=== PATIENT | female | born 1960 | race Caucasian/White ===

== ENCOUNTER → 2018-05-02 13:00 | Outpatient (CLI) | payer OTHER, SELFPAY | PROVIDERS: Family Provider Family Medicine; PCP Family Medicine | DX: Z23 Encounter for immunization (principal) | CPT/HCPCS: 90471; 90686 ==

== ENCOUNTER → 2018-09-18 09:46 | Outpatient (CLI) | payer OTHER, SELFPAY ==
[2018-09-18 10:25] LABS: Influenza A and B by PCR Rapid Negative (Negative)
== END ==
PROVIDERS: Family Provider Family Medicine; PCP Family Medicine; Visit Provider Physician Assistant
DX: R68.89 Other general symptoms and signs (principal)
CPT/HCPCS: 87400

== ENCOUNTER → 2020-04-29 | Outpatient (CLI) | payer OTHER, SELFPAY | PROVIDERS: Family Provider Family Medicine; PCP Family Medicine; Referring Provider Internal Medicine; Visit Provider Internal Medicine | DX: Z23 Encounter for immunization (principal) | CPT/HCPCS: 90471; 90686 ==

== ENCOUNTER → 2020-07-14 14:34 | Outpatient (CLI) | payer OTHER, SELFPAY ==
[2020-07-14] MEDS: COVID-19 VACC(MODERNA-1)/PF 100 MCG/0.5 ML VIAL IM (14:40)
== END ==
PROVIDERS: Family Provider Family Medicine; PCP Family Medicine; Visit Provider Internal Medicine
DX: Z23 Encounter for immunization (principal)
CPT/HCPCS: 0011A; 91301

== ENCOUNTER → 2020-08-10 10:27 | Outpatient (CLI) | payer OTHER, SELFPAY ==
[2020-08-10] MEDS: COVID-19 VACC #2, MRNA(MOD) 100 MCG/0.5 ML VIAL IM (10:34)
== END ==
PROVIDERS: Family Provider Family Medicine; PCP Family Medicine; Visit Provider Internal Medicine
DX: Z23 Encounter for immunization (principal)
CPT/HCPCS: 0012A; 91301

== ENCOUNTER → 2020-09-10 12:28 | Outpatient (CLI) | payer OTHER, SELFPAY ==
--- NOTE | 2020-09-10 12:29 | DI.RAD.S_ITS ---
PROCEDURE: XR ANKLE RT MIN 3V INDICATIONS: painful ankle achilles TECHNIQUE: 3 views of the ankle were acquired. COMPARISON: None. FINDINGS: Bones: No fractures or dislocations. Ankle mortise is normally aligned. No suspicious bony lesions. Soft tissues: No tibiotalar joint effusion. Achilles tendon appears normal. IMPRESSION: Source of pain is not seen. Dictated by: Rosas Marsh M.D. on 09/10/2020 at 12:49 Approved by: Rosas Marsh M.D. on 09/10/2020 at 12:50
== END ==
PROVIDERS: Family Provider Family Medicine; PCP Family Medicine; Referring Provider Physician Assistant; Visit Provider Physician Assistant
DX: M25.572 Pain in left ankle and joints of left foot (principal)
CPT/HCPCS: 73610

== ENCOUNTER → 2020-10-18 08:36 | Outpatient (CLI) | payer OTHER, SELFPAY ==
[2020-10-18 08:58] LABS: Add Manual Diff / Slide Review NO; Basophils Absolute Auto 0 /uL (0-100); Basophils Percent Auto 0.4 % (0-2); Eosinophils Absolute Auto 200 /uL (0-450); Eosinophils Percent Auto 4.5 % (2-4); Hematocrit 38.2 % (36-46); Hemoglobin 12.9 g/dL (12.0-16.0); Lymphocytes Absolute Auto 1000 /uL (1100-4500); Lymphocytes Percent Auto 25.9 % (25-40); Mean Corpuscular HGB Conc 33.8 % (30-36); Mean Corpuscular Hemoglobin 31.4 PG (26-34); Monocytes Absolute Auto 400 /uL (0-900); Monocytes Percent Auto 9.5 % (3-14); Neutrophils Absolute Auto 2300 /uL (1500-7000); Neutrophils Percent Auto 59.7 % (50-75); Platelet Count 317 X10^3/uL (150-400); Red Blood Cell Count 4.11 X10^6/uL (4.0-5.2); White Blood Cell Count 3.9 X10^3/uL (4.5-11.0)
[2020-10-18 09:39] LABS: Alanine Aminotransferase 25 IU/L (<35); Albumin 4.4 g/dL (3.5-5.0); Albumin Globulin Ratio 1.7 (1.0-2.8); Alkaline Phosphatase 73 U/L (38-126); Aspartate Aminotransferase 22 IU/L (14-36); BUN Creatinine Ratio 12.7 (6-22); Bilirubin Total 0.2 mg/dL (0.2-1.3); Blood Urea Nitrogen 9 mg/dL (7-17); Calcium 9.8 mg/dL (8.4-10.2); Carbon Dioxide 26 mmol/L (22-32); Chloride 105 mmol/L (98-107); Cholesterol 259 mg/dL (140-199); Estimated Glomerular Filt Rate > 60.0 mL/min (>60); Globulin 2.6 g/dL (1.7-4.1); Glucose 97 mg/dL (70-100); HDL Cholesterol 68 mg/dL (40-60); HEMOLYSIS < 15 (0-50); LDL Cholesterol Calculated 172 mg/dL (<100); Potassium 4.4 mmol/L (3.4-5.1); Sodium 138 mmol/L (137-145); Triglycerides 95 mg/dL (35-150)
[2020-10-18 10:10] LABS: TSH w/ Reflex to FT4 1.71 uIU/mL (0.47-4.68)
== END ==
PROVIDERS: Family Provider Family Medicine; PCP Family Medicine; Referring Provider Family Medicine; Visit Provider Family Medicine
DX: E78.5 Hyperlipidemia, unspecified (principal); F32.9 Major depressive disorder, single episode, unspecified
CPT/HCPCS: 36415; 80053; 80061; 84443; 85025

== ENCOUNTER → 2021-01-31 10:32 | Outpatient (CLI) | payer OTHER, SELFPAY ==
[2021-01-31 11:46] LABS: Cholesterol 177 mg/dL (140-199); HDL Cholesterol 57 mg/dL (40-60); LDL Cholesterol Calculated 93 mg/dL (<100); Triglycerides 137 mg/dL (35-150)
== END ==
PROVIDERS: Family Provider Family Medicine; PCP Family Medicine; Referring Provider Family Medicine; Visit Provider Family Medicine
DX: E78.2 Mixed hyperlipidemia (principal)
CPT/HCPCS: 36415; 80061

== ENCOUNTER → 2021-05-02 13:35 | Outpatient (CLI) | payer OTHER, SELFPAY ==
--- NOTE | 2021-05-02 13:38 | DI.RAD.S_ITS ---
PROCEDURE: XR LUMBAR SPINE 2-3V INDICATIONS: SPINE PAIN TECHNIQUE: 3 views of the lumbar spine were acquired. COMPARISON: [facility], , -SPINE 2-3 VIEWS, 04/06/2010, 16:47. FINDINGS: Bones: 5 [id number] vertebrae are present. There is normal bony alignment. No vertebral body compression fractures. No suspicious bony lesions. Minimal scattered early degenerative change. Soft tissues: Overlying bowel gas pattern is normal. No suspicious soft tissue calcifications. IMPRESSION: Minimal early degenerative change. Dictated by: Genoveva Main M.D. on 05/03/2021 at 15:53 Approved by: Genoveva Main M.D. on 05/03/2021 at 15:54
== END ==
PROVIDERS: Family Provider Family Medicine; PCP Family Medicine; Referring Provider Chiropractor; Visit Provider Chiropractor
DX: M99.03 Segmental and somatic dysfunction of lumbar region (principal); M54.50 Low back pain, unspecified
CPT/HCPCS: 72100

== ENCOUNTER → 2021-05-03 16:57 | Outpatient (CLI) | payer OTHER, SELFPAY ==
--- NOTE | 2021-05-03 16:58 | DI.RAD.S_ITS ---
PROCEDURE: XR HIP W PEL IF DONE LT 2V INDICATIONS: pain left hip; pain with weight bearing; suspect OA TECHNIQUE: AP pelvis with lateral view(s) of the left hip(s). COMPARISON: [facility], , HIPBILAT 3TO4V W PEL IF PERFD, 12/13/2016, 19:46. FINDINGS: Bones: No fractures or dislocations. Pelvic ring appears intact. No suspicious bony lesions. Slightly progressed arthrosis with joint space loss and osteophytosis. Soft tissues: The visualized bowel gas pattern is normal. No suspicious soft tissue calcifications. IMPRESSION: No acute abnormality. Dictated by: Oz Adams M.D. on 05/04/2021 at 9:14 Approved by: Oz Adams M.D. on 05/04/2021 at 9:17
== END ==
PROVIDERS: Family Provider Family Medicine; PCP Family Medicine; Referring Provider Physician Assistant; Visit Provider Physician Assistant
DX: M25.552 Pain in left hip (principal)
CPT/HCPCS: 73502

== ENCOUNTER → 2021-05-05 11:56 | Outpatient (CLI) | payer OTHER, SELFPAY | PROVIDERS: Family Provider Family Medicine; PCP Family Medicine; Referring Provider Internal Medicine; Visit Provider Internal Medicine | DX: Z23 Encounter for immunization (principal) | CPT/HCPCS: 90471; 90686 ==

== ENCOUNTER 2021-07-18 19:24 | Emergency (ER) | payer OTHER, SELFPAY ==
[2021-07-18 19:31] VITALS: BP 124/71; PULSE 95; RESP 20; TEMP 36.6; O2SAT 97
[2021-07-18 20:28] LABS: Appearance Urine UA CLOUDY; Bacteria Urine None Seen; Bilirubin Urine UA NEGATIVE (NEGATIVE); Color Urine UA RED; Glucose Urine UA NEGATIVE (Negative); Ketones Urine UA NEGATIVE (NEGATIVE); Leukocyte Esterase Urine UA 1+ (NEGATIVE); Nitrite Urine UA NEGATIVE (Negative); Occult Blood Urine UA 3+ (Negative); Protein Urine UA 2+ (Negative); RBC Urine 10-30/HPF (0-5/HPF); Urobilinogen Urine UA 0.2 E.U./dL (0.2); WBC Urine 5-10/HPF (0-5/HPF)
[2021-07-18 20:29] LABS: Culture Indicated Urine Specimen Cultured
--- NOTE | 2021-07-18 21:08 | ED_ITS ---
HPI - General Adult General Chief complaint: Urogenital-Female Stated complaint: BLOOD IN URINE FREQUENTLY PEEING Time Seen by Provider: 07/18/21 21:02 Source: patient Mode of arrival: Ambulatory History of Present Illness HPI narrative: Patient is a 60-year-old female here for evaluation of less than 24 hours of blood in her urine. She states that yesterday she started having dysuria and frequency and urgency. No fevers. No abdominal pain. No nausea vomiting. No vaginal bleeding. No change in bowel habits. Today she started having blood in her urine in addition to the other symptoms that she had yesterday. No prior history of urinary tract infections. Not on blood thinners. Related Data Home Medications Medication Instructions Recorded Confirmed CA PANTOTHENATE/FOLIC ACID/VIT 1 tab PO QDAY #0 12/24/12 05/03/21 (MULTIVITAMIN) Fish Oil 1,000 mg PO QDAY #0 12/24/12 05/03/21 Previous Rx's Medication Instructions Recorded atorvastatin 20 mg tablet 20 mg PO BEDTIME #90 tab 10/18/20 cyclobenzaprine 10 mg tablet 10 mg PO BEDTIME PRN #14 tab 05/03/21 fluoxetine 20 mg tablet 20 mg PO DAILY #90 tab 05/03/21 ibuprofen 800 mg tablet 800 mg PO TID #30 tab 05/03/21 omeprazole 20 mg capsule,delayed 20 mg PO DAILY PRN #30 cap 05/03/21 release nitrofurantoin 100 mg PO Q12H 5 Days #10 cap 07/18/21 monohydrate/macrocrystals 100 mg capsule (Macrobid) phenazopyridine 100 mg tablet 100 mg PO TID PRN #6 tab 07/18/21 (Pyridium) Allergies Allergy/AdvReac Type Severity Reaction Status Date / Time sertraline Allergy Mild DIARRHEA Verified 05/03/21 15:28 Review of Systems Constitutional Constitutional: Denies fever(s) Cardiovascular Cardiovascular: Reports system reviewed and no additional complaints, except as documented Respiratory Respiratory: Reports system reviewed and no additional complaints, except as documented Gastrointestinal Gastrointestinal: Reports system reviewed and no additional complaints, except as documented Genitourinary Genitourinary: Reports system reviewed and no additional complaints, except as documented and Reports as per HPI Integumentary/Breasts Skin/Breast: Reports system reviewed and no additional complaints, except as documented Hematologic/Lymphatic On Anticoagulants: No Patient History Medical History Achilles tendinitis, right leg Restless leg Family History Child Age: 34 Bipolar 1 disorder Child Age: 26 Eczema Hx of seasonal allergies Mother Age: 80 High cholesterol Hiatal hernia Malignant neoplasm of female breast, unspecified laterality, unspecified site of breast Sister Age: 53 Seizures Social History marital status: Smoking Status: Never smoker alcohol intake: never substance use type: does not use Smoking Status: Never smoker Exam Initial Vital Signs Initial Vital Signs: Vital Signs Temperature 97.9 F 07/18/21 19:31 Pulse Rate 95 H 07/18/21 19:31 Respiratory Rate 20 07/18/21 19:31 Blood Pressure 124/71 07/18/21 19:31 Pulse Oximetry 97 07/18/21 19:31 HENMT Head: normal to inspection and normocephalic Resp Effort & Inspection: normal respiratory effort Cardio Rate: regular rate GI Inspection: normal to inspection Neuro General: patient alert, patient awake and moves all extremities Extrem General: normal to inspection and capillary refill normal Course Orders Ordered: ED Orders 07/18/21 20:20 Urinalysis and Microscopic Stat Urine Culture Stat 07/18/21 21:18 BMP [Basic Metabolic Panel] Stat Discontinued Medications Nitrofurantoin Macrocrystals (Nitrofurantoin Er 100 Mg Capsule) 100 mg PO NOW ONE Stop: 07/18/21 22:21 Last Admin: 07/18/21 22:23 Dose: 100 mg Documented by: NEHA Phenazopyridine HCl (Phenazopyridine 100 Mg Tablet) 100 mg PO NOW ONE Stop: 07/18/21 22:21 Last Admin: 07/18/21 22:24 Dose: 100 mg Documented by: NEHA Vital Signs Vital signs: Vital Signs - 8 hr 07/18/21 21:40 Pulse Rate 78 Blood Pressure 114/69 Pulse Oximetry 95 Medical Decision Making Lab Data Lab results reviewed: Yes I reviewed the patient's lab results. Result diagrams: 07/18/21 21:18 Labs: Lab Results 07/18/21 07/18/21 Range/Units 20:20 21:18 Sodium 137 (137-145) mmol/L Potassium 3.9 (3.4-5.1) mmol/L Chloride 104 (98-107) mmol/L Carbon Dioxide 29 (22-32) mmol/L BUN 19 H (7-17) mg/dL Creatinine 0.79 (0.52-1.04) mg/dL Estimated GFR > 60.0 (>60) mL/min BUN/Creatinine Ratio 24.1 H (6-22) Glucose 92 (70-100) mg/dL Calcium 9.5 (8.4-10.2) mg/dL Urine Color Red Urine Appearance Cloudy Urine pH 5.0 (4.5-8.0) Ur Specific [place] 1.020 (1.000-1.035) Urine Protein 2+ H (Negative) Urine Glucose (UA) Negative (Negative) g/dL Urine Ketones Negative (NEGATIVE) Urine Occult Blood 3+ H (Negative) Urine Nitrate Negative (Negative) Urine Bilirubin Negative (NEGATIVE) Urine Urobilinogen 0.2 (0.2) E.U./dL Ur Leukocyte Esterase 1+ H (NEGATIVE) Urine RBC 10-30/hpf H (0-5/HPF) Urine WBC 5-10/hpf H (0-5/HPF) Urine Bacteria None seen (None) Ur Culture Indicated? Specimen cultured Micro UA Comment MDM Narrative Medical decision making narrative: Patient does have blood in her urine and is cloudy and does have white cells but no bacteria. Low suspicion for pyelonephritis. Considered other etiologies such as kidney stones however feel this is unlikely given her presentation. We did discuss the potential that hematuria can cause her urgency and frequency or this could potentially be a urinary tract infection. Urine culture was ordered. We did discuss options to include waiting for the culture to result and then starting on antibiotics verses presumptively starting on antibiotics today. Patient would like to start on antibiotics today. She was given a 1st dose here in the emergency department and was sent home with a prescription. Will also give peridium for her symptoms. She was given strict return precautions and follow-up instructions. Will contact her if we need to change anything based on the culture results. She expressed understanding and agreement. Discharge Plan Departure Patient Disposition: Home Clinical Impression: Urinary tract infection, Hematuria Instructions: DI for Hematuria Activity Restrictions/Additional Instructions: The urine culture was pending at the time of your discharge. We will contact you have we need to change any antibiotics. Be sure to increase your fluid intake. Contact your primary doctor as your going to need further workup to make sure that the blood in your urine resolves. Return to the emergency department for any new or worsening symptoms. Prescriptions: New phenazopyridine [Pyridium] 100 mg tablet 100 mg PO TID PRN (Reason: pain) Qty: 6 0RF nitrofurantoin monohyd/m-cryst [Macrobid] 100 mg capsule 100 mg PO Q12H 5 Days Qty: 10 0RF Rx Instructions: must administer with a meal/food No Action fluoxetine 20 mg tablet 20 mg PO DAILY Qty: 90 2RF cyclobenzaprine 10 mg tablet 10 mg PO BEDTIME PRN (Reason: muscle spasm) Qty: 14 0RF ibuprofen 800 mg tablet 800 mg PO TID Qty: 30 1RF omeprazole 20 mg capsule,delayed release(DR/EC) 20 mg PO DAILY PRN (Reason: reflux) Qty: 30 3RF Rx Instructions: Take one capsule once daily while on Ibuprofen then take as needed for reflux Fish Oil 1,000 mg PO QDAY Qty: 0 0RF CA PANTOTHENATE/FOLIC ACID/VIT (MULTIVITAMIN) 1 tab PO QDAY Qty: 0 0RF atorvastatin 20 mg tablet 20 mg PO BEDTIME Qty: 90 1RF Referrals: Keny Ibarra MD [Primary Care Provider] -
[2021-07-18 21:40] VITALS: BP 114/69; PULSE 78; O2SAT 95
[2021-07-18 21:41] LABS: BUN Creatinine Ratio 24.1 (6-22); Blood Urea Nitrogen 19 mg/dL (7-17); Calcium 9.5 mg/dL (8.4-10.2); Carbon Dioxide 29 mmol/L (22-32); Chloride 104 mmol/L (98-107); Estimated Glomerular Filt Rate > 60.0 mL/min (>60); Glucose 92 mg/dL (70-100); HEMOLYSIS < 15 (0-50); Potassium 3.9 mmol/L (3.4-5.1); Sodium 137 mmol/L (137-145)
[2021-07-18] MEDS: NITROFURANTOIN ER 100 MG CAPSULE PO (22:23)
[2021-07-18] MEDS: PHENAZOPYRIDINE 100 MG TABLET PO (22:24)
== END 2021-07-18 22:31 | disposition home or self-care (01) ==
PROVIDERS: Emergency Provider Emergency Medicine; Family Provider Family Medicine; PCP Family Medicine
DX: N39.0 Urinary tract infection, site not specified (principal); R31.9 Hematuria, unspecified
CPT/HCPCS: 36415; 80048; 81001; 87077; 87086; 87186; 99283

== ENCOUNTER → 2022-04-27 10:39 | Outpatient (CLI) | payer OTHER, SELFPAY ==
[2022-04-27 13:04] LABS: Alanine Aminotransferase 27 IU/L (<35); Albumin 4.2 g/dL (3.5-5.0); Albumin Globulin Ratio 1.4 (1.0-2.8); Alkaline Phosphatase 74 U/L (38-126); Aspartate Aminotransferase 21 IU/L (14-36); BUN Creatinine Ratio 13.6 (6-22); Bilirubin Total 0.4 mg/dL (0.2-1.3); Blood Urea Nitrogen 12 mg/dL (7-17); Calcium 9.2 mg/dL (8.4-10.2); Carbon Dioxide 29 mmol/L (22-32); Chloride 101 mmol/L (98-107); Cholesterol 252 mg/dL (140-199); Estimated Glomerular Filt Rate > 60 mL/min (>60); Glucose 88 mg/dL (80-110); HDL Cholesterol 59 mg/dL (40-60); HEMOLYSIS < 15 (0-50); LDL Cholesterol Calculated 173 mg/dL (<100); Potassium 4.7 mmol/L (3.4-5.1); Sodium 140 mmol/L (137-145); Total Protein 7.2 g/dL (6.3-8.2); Triglycerides 99 mg/dL (35-150)
[2022-04-27 13:35] LABS: TSH w/ Reflex to FT4 1.65 uIU/mL (0.47-4.68)
== END ==
PROVIDERS: Family Provider Family Medicine; PCP Family Medicine; Referring Provider Physician Assistant; Visit Provider Physician Assistant
DX: E78.2 Mixed hyperlipidemia (principal)
CPT/HCPCS: 36415; 80053; 80061; 84443

== ENCOUNTER → 2022-05-02 16:12 | Outpatient (CLI) | payer OTHER, SELFPAY | PROVIDERS: Family Provider Family Medicine; PCP Family Medicine; Referring Provider Internal Medicine; Visit Provider Internal Medicine | DX: Z23 Encounter for immunization (principal) | CPT/HCPCS: 90471; 90686 ==

== ENCOUNTER → 2022-07-21 09:32 | Outpatient (CLI) | payer OTHER, SELFPAY ==
--- NOTE | 2022-07-21 09:34 | DI.RAD.S_ITS ---
PROCEDURE: XR HIP W PEL IF DONE LT 2V INDICATIONS: Left hip pain TECHNIQUE: AP pelvis with lateral view(s) of the left hip(s). COMPARISON: [facility], [facility], XR HIP W PEL IF DONE LT 2V, 05/03/2021, 17:02. [facility], [facility], HIPBILAT 3TO4V W PEL IF PERFD, 12/13/2016, 19:46. FINDINGS: Bones: No acute fractures or dislocations. Pelvic ring appears intact. No suspicious bony lesions. Moderate degenerative changes of both hips, not significantly changed. Soft tissues: The visualized bowel gas pattern is normal. No suspicious soft tissue calcifications. IMPRESSION: No acute fracture visualized. Moderate degenerative changes of both hips. If symptoms persist, follow-up radiographs and/or CT or MRI may be helpful for further evaluation. Dictated by: Rolando Walls M.D. on 07/21/2022 at 10:08 Approved by: Rolando Walls M.D. on 07/21/2022 at 10:11
== END ==
PROVIDERS: Family Provider Family Medicine; PCP Family Medicine; Referring Provider Registered Nurse; Visit Provider Registered Nurse
DX: M25.552 Pain in left hip (principal)
CPT/HCPCS: 73502

== ENCOUNTER → 2022-08-01 14:52 | Outpatient (CLI) | payer OTHER, SELFPAY ==
--- NOTE | 2022-08-01 14:53 | DI.RAD.S_ITS ---
PROCEDURE: XR ELBOW LT MIN 3V INDICATIONS: Left elbow pain; possible OA TECHNIQUE: 3 views of the elbow were acquired. COMPARISON: None. FINDINGS: Bones: No fractures or dislocations. No suspicious bony lesions. Soft tissues: No elbow joint effusion. No suspicious soft tissue calcifications. IMPRESSION: NNo osseous lesion. If symptoms and/or clinical suspicion for pathology persists, further assessment advanced imaging (e.g. CT, MRI or bone scan) should be considered. Dictated by: Rosie Alba MD, PhD on 08/01/2022 at 16:04 Approved by: Rosie Alba MD, PhD on 08/01/2022 at 16:05
== END ==
PROVIDERS: Family Provider Family Medicine; PCP Family Medicine; Referring Provider Physician Assistant; Visit Provider Physician Assistant
DX: M25.522 Pain in left elbow (principal)
CPT/HCPCS: 73080

== ENCOUNTER → 2023-05-14 | Outpatient (CLI) | payer OTHER, SELFPAY | PROVIDERS: Family Provider Family Medicine; PCP Family Medicine; Referring Provider Family Medicine; Visit Provider Family Medicine | DX: Z23 Encounter for immunization (principal) | CPT/HCPCS: 90471; 90686 ==

== ENCOUNTER → 2023-11-05 15:56 | Outpatient (CLI) | payer OTHER, SELFPAY ==
--- NOTE | 2023-11-05 16:00 | DI.RAD.S_ITS ---
PROCEDURE: XR HIP W PEL IF DONE RT 2V INDICATIONS: Right hip pain w known OA extending into Rt Knee TECHNIQUE: AP pelvis with lateral view(s) of the right hip(s). COMPARISON: [facility], CR, XR HIP W PEL IF DONE LT 2V, 07/21/2022, 9:42. [facility], CR, XR HIP W PEL IF DONE LT 2V, 05/03/2021, 17:02. FINDINGS: Bones: No fractures or dislocations. Mild progression of right hip joint degeneration, now moderate to severe. Stable moderate left hip joint degeneration. There is joint space narrowing and marginal spurring. Pelvic ring appears intact. No suspicious bony lesions. Soft tissues: The visualized bowel gas pattern is normal. No suspicious soft tissue calcifications. IMPRESSION: Moderate to severe degenerative changes of the right hip appears mildly progressed. Stable moderate degenerative changes of the left hip. Dictated by: Remigio Logan M.D. on 11/05/2023 at 16:45 Approved by: Remigio Logan M.D. on 11/05/2023 at 16:46
--- NOTE | 2023-11-05 16:00 | DI.RAD.S_ITS ---
PROCEDURE: XR KNEE RT 3V INDICATIONS: Right hip pain w known OA extending into Rt Knee TECHNIQUE: 3 views of the knee were acquired. COMPARISON: None. FINDINGS: Bones: No fractures or dislocations. Mild osteoarthritic changes with minimal osteophytosis and mild medial tibial femoral compartment joint space narrowing No suspicious bony lesions. Soft tissues: Small joint effusion. No suspicious soft tissue calcifications. IMPRESSION: No acute osseous abnormalities. Mild degenerative changes of the knee. Dictated by: Remigio Logan M.D. on 11/05/2023 at 16:44 Approved by: Remigio Logan M.D. on 11/05/2023 at 16:45
== END ==
PROVIDERS: Family Provider Family Medicine; PCP Family Medicine; Referring Provider Physician Assistant; Visit Provider Physician Assistant
DX: M25.551 Pain in right hip (principal); M25.461 Effusion, right knee
CPT/HCPCS: 73502; 73562

== ENCOUNTER 2024-02-05 10:09 | Emergency (ER) | payer OTHER, SELFPAY ==
[2024-02-05] VITALS (13 sets, daily range): BP systolic 92–105; BP diastolic 51–65; PULSE 78–94; RESP 18; TEMP 36.8; O2SAT 93–100; BMI 28.3
--- NOTE | 2024-02-05 10:35 | EKG_ITS ---
[address] [address] Test Date: 2024-02-05 Pat Name: Melissa Nogueira Department: Room: Gender: Female Testing Specialist: HONG : 1960 Requested By: Order Number: [id number] Reading MD: Johnny Chahal Measurements Intervals [place] Rate: 93 P: 44 KS: 142 QRS: 55 QRSD: 74 T: 54 QT: 372 QTc: 462 Interpretive Statements Normal sinus rhythm Cannot rule out Anterior infarct , age undetermined Electronically Signed On 02-05-2024 12:34:45 PDT by Johnny Chahal
[2024-02-05 10:39] LABS: Add Manual Diff / Slide Review NO; Basophils Absolute Auto 0 /uL (0-100); Eosinophils Absolute Auto 0 /uL (0-450); Eosinophils Percent Auto 0.1 % (2-4); Hematocrit 38.5 % (36-46); Lymphocytes Absolute Auto 200 /uL (1100-4500); Lymphocytes Percent Auto 1.5 % (25-40); Mean Corpuscular HGB Conc 33.8 % (30-36); Mean Corpuscular Hemoglobin 31.8 PG (26-34); Monocytes Absolute Auto 500 /uL (0-900); Monocytes Percent Auto 4.1 % (3-14); Neutrophils Absolute Auto 11200 /uL (1500-7000); Neutrophils Percent Auto 94.3 % (50-75); Platelet Count 358 X10^3/uL (150-400); Red Cell Distribution Width 13.6 % (11.6-14.8); White Blood Cell Count 11.9 X10^3/uL (4.5-11.0)
[2024-02-05 10:41] LABS: Alanine Aminotransferase 37 IU/L (<35); Albumin 4.7 g/dL (3.5-5.0); Albumin Globulin Ratio 1.6 (1.0-2.8); Alkaline Phosphatase 80 U/L (38-126); Aspartate Aminotransferase 31 IU/L (14-36); BUN Creatinine Ratio 17.6 (6-22); Bilirubin Total 0.5 mg/dL (0.2-1.3); Blood Urea Nitrogen 13 mg/dL (7-17); Calcium 9.1 mg/dL (8.4-10.2); Carbon Dioxide 20 mmol/L (22-32); Chloride 105 mmol/L (98-107); Estimated Glomerular Filt Rate > 60 mL/min (>60); Glucose 153 mg/dL (80-110); HEMOLYSIS < 15 (0-50); Lipase 276 U/L (23-300); Potassium 4.2 mmol/L (3.4-5.1); Sodium 137 mmol/L (137-145); Total Protein 7.7 g/dL (6.3-8.2)
--- NOTE | 2024-02-05 12:19 | ED.NAVMDI ---
HPI - Nausea/Vomiting/Diarrhea General Chief complaint: Nausea/Vomiting/Diarrhea Stated complaint: N/V Time Seen by Provider: 02/05/24 12:19 Source: patient Mode of arrival: Ambulatory Limitations: no limitations History of Present Illness HPI Narrative: 63-year-old female history of, dyslipidemia, hip replacement 6 weeks ago who states she woke up about 5:00 a.m. this morning started having nausea and vomiting little bit of loose stools throughout the morning. States she had not felt ill before going to sleep. She states no abdominal back or flank pain. No fevers she is aware of. She received some Zofran EN route that has improved but she still feels very dry mouth and gotten these. Patient states she had some loose stools this morning but states that is typical, no bright red or black stools. No blood or changes to her emesis. She denies any dysuria urgency or frequency. Notes that she did use a walker to walk several blocks to her grandson's school yesterday and back. She states she has had motion sickness in the past and thought that maybe this might have triggered things but that last night. She was feeling fine last night when she went to sleep. Patient states she has not taken her morning medications but takes Celebrex, fluoxetine, Tylenol and had a recent prescription medications sent for her hip. Patient states she has had prior hip replacement no prior abdominal surgeries. No known drug allergies. No tobacco, alcohol or recreational drugs. Sharron Weinstein is her primary care provider. Patient does note she had a sick contact her granddaughter was sick about 5 days ago, she saw her yesterday. Related Data Home Medications Medication Instructions Recorded Confirmed CA PANTOTHENATE/FOLIC ACID/VIT 1 tab PO QDAY ##0 12/24/12 11/27/23 (MULTIVITAMIN) Fish Oil 1,000 mg PO QDAY ##0 12/24/12 11/27/23 meloxicam 15 mg tablet 15 mg PO DAILY 11/08/23 11/27/23 Previous Rx's Medication Instructions Recorded omeprazole 20 mg capsule,delayed 20 mg PO DAILY PRN reflux #30 caps 07/21/22 release fluoxetine 20 mg capsule 20 mg PO DAILY #90 caps 08/01/23 ibuprofen 800 mg tablet 800 mg PO TID PRN pain #60 tabs 08/01/23 cyclobenzaprine 5 mg tablet 5 mg PO BEDTIME PRN muscle spasm 11/08/23 #20 tabs ondansetron 4 mg disintegrating 4 mg PO Q6H PRN nausea and 02/05/24 tablet vomiting #10 tabs Allergies Allergy/AdvReac Type Severity Reaction Status Date / Time sertraline AdvReac Mild DIARRHEA Verified 02/05/24 10:23 Review of Systems Review of Systems ROS Unobtainable: All systems reviewed & are unremarkable except as noted in HPI and below Patient History Medical History Achilles tendinitis, right leg Restless leg Family History Child Age: 36 Bipolar 1 disorder Child Age: 28 Eczema Hx of seasonal allergies Mother Age: 82 High cholesterol Hiatal hernia Malignant neoplasm of female breast, unspecified laterality, unspecified site of breast Sister Age: 55 Seizures Social History marital status: Smoking Status: Never smoker alcohol intake: never substance use type: does not use Smoking Status: Never smoker alcohol intake frequency: other Substance Use Type: does not use Exam Narrative Exam Narrative: GENERAL: Alert and oriented x three, female in mild distress HEENT: Head normocephalic, atraumatic, EOMI, pupils reactive, face symmetric, moist mucous membranes NECK: Supple, full range of motion CARDIOVASCULAR: Regular rate and rhythm without murmurs, rubs or gallops. No JVD. No edema bilateral lower extremities. RESPIRATORY: Breath sounds equal bilaterally, no wheezes rales or rhonchi. ABDOMEN: Soft, nontender. Nondistended. Normoactive bowel sounds all 4 quadrants. No guarding or rebound, rigidity, no mass : No CVA tenderness EXTREMITIES: Normal range of motion, no clubbing or edema. Neurovascularly intact NEUROLOGICAL: Cranial nerves II through XII grossly intact. Moving all extremities SKIN: Warm, dry, no petechiae, no rashes or lesions. Initial Vital Signs Initial Vital Signs: Vital Signs Pulse Rate 93 H 02/05/24 10:15 Pulse Oximetry 96 02/05/24 10:15 Course Orders Ordered: ED Orders 02/05/24 10:00 Complete Blood Count AUTO DIFF Stat Comprehensive Metabolic Panel Stat Lipase Stat Troponin & CK Cardiac Panel Stat 02/05/24 10:19 EKG-12 Lead Stat 02/05/24 12:30 Urinalysis and Microscopic Stat Urine Culture Stat 02/05/24 12:37 XR acute abdomen series Stat 02/05/24 12:45 Covid-19 + FLU A/B + RSV - PCR Stat Discontinued Medications Sodium Chloride (Normal Saline 0.9%) 1,000 mls @ 1,000 mls/hr IV BOLUS ONE Stop: 02/05/24 13:33 Last Infusion: 02/05/24 14:54 Dose: Infused Documented By: Admin: 02/05/24 13:00 Dose: 1,000 mls/hr Documented By: GRIS Ondansetron HCl (Ondansetron 4 Mg/2 Ml Inj) 4 mg IV NOW PRN PRN Reason: Nausea And Vomiting Ondansetron HCl (Ondansetron 4 Mg Odt) 4 mg PO NOW PRN PRN Reason: Nausea And Vomiting Vital Signs Vital signs: Vital Signs - 8 hr 02/05/24 10:30 02/05/24 10:30 02/05/24 11:00 Pulse Rate 91 H 91 H Respiratory Rate Blood Pressure 95/51 L Pulse Oximetry 100 93 Oxygen Delivery Method 02/05/24 11:00 02/05/24 11:06 02/05/24 11:06 Pulse Rate 86 Respiratory Rate Blood Pressure 96/58 L 92/54 L Pulse Oximetry 94 Oxygen Delivery Method 02/05/24 11:30 02/05/24 11:30 02/05/24 12:00 Pulse Rate 81 79 Respiratory Rate Blood Pressure 94/51 L Pulse Oximetry 93 96 Oxygen Delivery Method 02/05/24 12:00 02/05/24 12:30 02/05/24 13:00 Pulse Rate 94 H 86 Respiratory Rate Blood Pressure 97/55 L Pulse Oximetry 97 98 Oxygen Delivery Method 02/05/24 13:18 02/05/24 13:18 02/05/24 13:30 Pulse Rate 88 90 Respiratory Rate Blood Pressure 102/54 L Pulse Oximetry 97 98 Oxygen Delivery Method 02/05/24 13:30 02/05/24 14:00 02/05/24 14:00 Pulse Rate 82 Respiratory Rate Blood Pressure 100/53 L 99/53 L Pulse Oximetry 98 Oxygen Delivery Method 02/05/24 14:30 02/05/24 14:30 Pulse Rate 78 Respiratory Rate 18 Blood Pressure 105/59 L Pulse Oximetry 96 Oxygen Delivery Method Room Air MDM - Nausea/Vomiting/Diarrhea Lab Data 02/05/24 10:00 02/05/24 10:00 Labs: Lab Results 02/05/24 02/05/24 02/05/24 Range/Units 10:00 12:30 12:45 WBC 11.9 H (4.5-11.0) X10^3/uL RBC 4.10 (4.0-5.2) X10^6/uL Hgb 13.0 (12.0-16.0) g/dL Hct 38.5 (36-46) % MCV 94.0 (80-100) fL MCH 31.8 (26-34) PG MCHC 33.8 (30-36) % RDW 13.6 (11.6-14.8) % Plt Count 358 (150-400) X10^3/uL Neut % (Auto) 94.3 H (50-75) % Lymph % (Auto) 1.5 L (25-40) % [place] % (Auto) 4.1 (3-14) % Eos % (Auto) 0.1 L (2-4) % Baso % (Auto) 0.0 (0-2) % Neut # (Auto) 75290 H (9024-2418) /uL Lymph # (Auto) 200 L (0714-8868) /uL [place] # (Auto) 500 (0-900) /uL Eos # (Auto) 0 (0-450) /uL Baso # (Auto) 0 (0-100) /uL Sodium 137 (137-145) mmol/L Potassium 4.2 (3.4-5.1) mmol/L Chloride 105 (98-107) mmol/L Carbon Dioxide 20 L (22-32) mmol/L BUN 13 (7-17) mg/dL Creatinine 0.74 (0.52-1.04) mg/dL Estimated GFR > 60 (>60) mL/min BUN/Creatinine Ratio 17.6 (6-22) Glucose 153 H (80-110) mg/dL Calcium 9.1 (8.4-10.2) mg/dL Total Bilirubin 0.5 (0.2-1.3) mg/dL AST 31 (14-36) IU/L ALT 37 H (<35) IU/L Alkaline Phosphatase 80 (38-126) U/L Total Creatine Kinase 32 (30-135) U/L Troponin I < 0.012 (0.01-0.034) ng/mL Total Protein 7.7 (6.3-8.2) g/dL Albumin 4.7 (3.5-5.0) g/dL Globulin 3.0 (1.7-4.1) g/dL Albumin/Globulin Ratio 1.6 (1.0-2.8) Lipase 276 (23-300) U/L Urine Color Yellow Urine Appearance Clear Urine pH 6.0 (4.5-8.0) Ur Specific [place] 1.020 (1.000-1.035) Urine Protein Trace H (Negative) Urine Glucose (UA) Negative (Negative) g/dL Urine Ketones Trace H (NEGATIVE) Urine Occult Blood Negative (Negative) Urine Nitrate Negative (Negative) Urine Bilirubin Negative (NEGATIVE) Urine Urobilinogen 0.2 (0.2) E.U./dL Ur Leukocyte Esterase Trace H (NEGATIVE) Urine RBC 0-1/hpf D (0-5/HPF) Urine WBC 0-1/hpf (0-5/HPF) Ur Squamous Epith Cells 0-1 /hpf (0-5/HPF) Urine Bacteria Moderate (10-30) H (None) Urine Mucus 3+ H (Negative) Ur Culture Indicated? Specimen cultured Vol Urine Centrifuged 10ml (spun) SARS-CoV-2 (PCR) Positive H (Negative) Influenza A (RT-PCR) Flu a negative (NEGATIVE) Influenza B (RT-PCR) Flu b negative (NEGATIVE) RSV (PCR) Negative (Negative) ECG Data Attestation: I personally reviewed and interpreted this ECG as follows: Prior ECG tracings: not available for review Interpretation: Sinus rhythm rate of 93 FL 142 QRS is 74 QTC 462, no acute ST changes. [facility] Narrative Medical decision making narrative: Labs show white count 11.9 hemoglobin of 13 platelets of 358, predominance of neutrophils. Sodium 137 potassium 4.2 chloride of 105 CO2 of 20, BUN 13 creatinine 0.74 glucose of 153 calcium 9.1 ALT is 37 but bilirubin AST and alk-phos are normal with a lipase of 276. Troponin negative, onset of symptoms 5 hours prior. EKG shows no acute change EKG shows sinus rhythm, no priors for comparison. Acute abdominal series shows air-fluid levels with mildly distended small bowel loops central right abdomen, no suspicious calcifications. Mild/early small-bowel obstruction. Patient has not had any additional obstructive symptoms she is tolerating p.o. in the department. She does have a source for potential infection with her positive COVID swab. COVID/influenza/flu SWAB, positive for COVID UA shows trace protein, ketones trace leuks, 1 white cell 1 red cell 1 squamous 10-30 bacteria with 3+ mucus was sent for culture. Patient's blood pressure has been in the 90s she states that is normal for her. She did receive 4 mg Zofran and a L of fluids prior to arrival. Patient states blood pressure is much more normal for her. She feels much improved than earlier. She does ask for a 2 L of fluid she states she had a lot of emesis earlier today. Discussed findings with patient, need to follow up we will give script for Zofran. Discussed Paxlovid. Discussed return precautions. Discharge Plan Departure Patient Disposition: Home Clinical Impression: Vomiting, COVID-19 virus infection Instructions: DI for COVID-19 (Suspected or Confirmed ) Activity Restrictions/Additional Instructions: You have tested positive for COVID today, this is likely part of the reason for your symptoms. You do have a urine culture pending, if this is positive you would be contacted in the next 48-72 hours to start oral antibiotics. You can take Zofran 1 tablet every 6 hours as needed for nausea. If you develop any fevers or chills you can take Tylenol up to a 1000 mg every 6 hours and/or ibuprofen up to 600 mg every 6 hours. Prescription was sent to in [place]. Please return for new or worsening symptoms, persistent vomiting new abdominal back or flank pain, if you are not have any bowel movements or passing gas, lightheadedness or passing out, new chest pain or shortness of breath or other new or concerning changes. Prescriptions: New ondansetron 4 mg tablet,disintegrating 4 mg PO Q6H PRN (Reason: nausea and vomiting) Qty: 10 0RF No Action omeprazole 20 mg capsule,delayed release(DR/EC) 20 mg PO DAILY PRN (Reason: reflux) Qty: 30 3RF Rx Instructions: Take one capsule once daily while on Ibuprofen then take as needed for reflux Fish Oil 1,000 mg PO QDAY Qty: 0 CA PANTOTHENATE/FOLIC ACID/VIT (MULTIVITAMIN) 1 tab PO QDAY Qty: 0 fluoxetine 20 mg capsule 20 mg PO DAILY Qty: 90 3RF Hold Instructions: patient decided stop med for now ibuprofen 800 mg tablet 800 mg PO TID PRN (Reason: pain) Qty: 60 1RF meloxicam 15 mg tablet 15 mg PO DAILY cyclobenzaprine 5 mg tablet 5 mg PO BEDTIME PRN (Reason: muscle spasm) Qty: 20 0RF Referrals: Keny Ibarra MD [Primary Care Provider] - Stand Alone Forms: Patient Portal/API
--- NOTE | 2024-02-05 12:20 | PC.NURSE ---
Patient ambulated to bathroom without dizziness, lightheadedness and without any assistance needed.
--- NOTE | 2024-02-05 12:37 | DI.RAD.S_ITS ---
PROCEDURE: XR ACUTE ABDOMEN SERIES INDICATIONS: n/v TECHNIQUE: One view chest and two views of the abdomen were acquired. COMPARISON: None. FINDINGS: Surgical changes and devices: Right hip arthroplasty. Chest: Lungs are clear. Heart size is normal. No pleural effusions. No pneumoperitoneum. Abdomen: Air-fluid levels within mildly distended small bowel loops within the central and right abdomen. No suspicious calcifications. Visualized solid organ contours appear normal. Bones: No suspicious bony lesions. IMPRESSION: Mild/early small-bowel obstruction. Dictated by: Naty Harris M.D. on 02/05/2024 at 13:32 Approved by: Naty Harris M.D. on 02/05/2024 at 13:33
[2024-02-05 12:53] LABS: Creatine Kinase 32 U/L (30-135)
[2024-02-05 12:59] LABS: Appearance Urine UA CLEAR; Bilirubin Urine UA NEGATIVE (NEGATIVE); Color Urine UA YELLOW; Glucose Urine UA NEGATIVE (Negative); Ketones Urine UA TRACE (NEGATIVE); Leukocyte Esterase Urine UA TRACE (NEGATIVE); Nitrite Urine UA NEGATIVE (Negative); Occult Blood Urine UA NEGATIVE (Negative); Protein Urine UA TRACE (Negative); Urobilinogen Urine UA 0.2 E.U./dL (0.2)
[2024-02-05] MEDS: SODIUM CHLORIDE 0.9% 1,000 ML 1000 ML IV (13:00)
[2024-02-05 13:06] LABS: Troponin I < 0.012 ng/mL (0.01-0.034)
[2024-02-05 13:24] LABS: Bacteria Urine Moderate (10-30); Mucus Urine 3+ (Negative); RBC Urine 0-1/HPF (0-5/HPF); Squamous Epithelial Cell Urine 0-1 /HPF (0-5/HPF); Urine Volume 10mL (spun); WBC Urine 0-1/HPF (0-5/HPF)
[2024-02-05 13:25] LABS: Culture Indicated Urine Specimen Cultured
[2024-02-05 13:37] LABS: Influenza A - CEPHEID Flu A NEGATIVE (NEGATIVE); Influenza B - CEPHEID Flu B NEGATIVE (NEGATIVE); Respiratory Syncytial Virus Negative (Negative)
[2024-02-05 13:39] LABS: COVID-19 CEPHEID 4-PLEX PCR POSITIVE (Negative)
== END 2024-02-05 15:12 | disposition home or self-care (01) ==
PROVIDERS: Emergency Provider Emergency Medicine; Family Provider Family Medicine; PCP Family Medicine
DX: U07.1 COVID-19 (principal); R11.10 Vomiting, unspecified; R10.9 Unspecified abdominal pain
CPT/HCPCS: 0241U; 74022; 80053; 81001; 82550; 83690; 84484; 85025; 87086; 93005; 96360; 96361; 99284

== ENCOUNTER → 2024-02-21 17:40 | Outpatient (CLI) | payer OTHER, SELFPAY ==
--- NOTE | 2024-02-21 17:41 | DI.RAD.S_ITS ---
PROCEDURE: XR FOOT LT MIN 3V INDICATIONS: left foot pain TECHNIQUE: 3 views of the foot were acquired. COMPARISON: None. FINDINGS: Bones: No fractures or dislocations. No suspicious bony lesions. Enthesophyte noted along inferior calcaneus. Soft tissues: No tibiotalar joint effusion. Achilles tendon appears normal. IMPRESSION: No acute bony abnormality. Calcaneal spur. Dictated by: Mehul Burciaga M.D. on 02/22/2024 at 14:58 Approved by: Mehul Burciaga M.D. on 02/22/2024 at 14:59
== END ==
LOC: RAD 17:41
PROVIDERS: Family Provider Family Medicine; PCP Family Medicine; Referring Provider Nurse Practitioner Family; Visit Provider Nurse Practitioner Family
DX: M77.32 Calcaneal spur, left foot (principal); M79.672 Pain in left foot
CPT/HCPCS: 73630

== ENCOUNTER 2024-04-25 11:30 | Outpatient (RCR) | payer OTHER, SELFPAY ==
--- NOTE | 2023-08-15 18:44 | PT.OIE ---
Current Diagnoses Abnormal posture (08/15/23) Weakness (08/15/23) Superior glenoid labrum lesion of left shoulder, subsequent encounter (08/15/23) Strain of unspecified muscle, fascia and tendon at shoulder and upper arm level, left arm, initial encounter (08/15/23) Past Medical History (Last Reviewed 07/21/22 @ 09:27 by MIR Silva) Achilles tendinitis, right leg Restless leg Visit Care Team Role Provider Type Keny Ibarra MD Family Provider Physician Primary Care Provider Specialty: Family Practice Address: [address] [place] [address], [address], [place], [address] Email: [email or web address] Mello [email or web address] MD Attending Provider Non-Staff Referring Provider Specialty: Physical Medicine and Rehab Address: [address] [place] [address], [id number] Email: Physical Therapy Initial Evaluation PT-OP-A Visit Information Start: 08/08/23 08:07 Freq: Status: Active Protocol: Document 08/15/23 14:31 [facility] (Rec: 08/15/23 15:19 [facility] [id number]) Out-Patient Physical Therapy Visit Information Visit Information Visit Type Initial Evaluation Visit Start Time 14:33 Visit Stop Time 15:18 Visit Number 07/20 Number of [employer] ARTIST Visits 0 PT-OP-B Current Condition Start: 08/08/23 08:07 Freq: Status: Active Protocol: Document 08/15/23 14:31 [facility] (Rec: 08/15/23 15:19 [facility] [id number]) Current Condition History of Current Condition Onset Date Jun 11, 2023 Current Complaints L brachium History of Current Condition Pt fell carrying mail bins that broke her fall and felt a sharp pain at that time. It went away but now when she rolls certain ways, or reach w /her arm. She is seeing Dr. Larios. Per pt, w/MRI there is tendonitis, arthritis present and not recommending surgery. A few weeks ago, she reached to grab a cup that was falling and it was sharp pain. She feels like she is losing upper body strength and feels like she is losing ROM and strength B as she is avoiding motion. denies numbness or tingling. pain is sharp w/movement then has a lasting achiness. 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 Pain has not gotten better and in someways has gotten worse w/ the sharp pains. Treatment Goals Patient/Caregiver Goals be able to use arm fully w/o pain PT-OP-C Subjective Start: 08/08/23 08:07 Freq: Status: Active Protocol: Document 08/15/23 14:31 [facility] (Rec: 08/15/23 15:19 [facility] [id number]) Patient Questionnaires Quick Dash- Upper Extremity Quick Dash UE Score 54.4 OP-PT Pain Assessment Location L brachium Pain Location Details L ant and lat Description Aching,Sharp,With Movement Frequency Frequent Pain Aggravating Factors ADL's,Lifting Other Pain Aggravating Factors reaching, reach w/drive thru, turn arm in weird angle, reach for seatbelt Other Pain Alleviating Factors ibuprofen PT-OP-F Manual Assessment Start: 08/08/23 08:07 Freq: Status: Active Protocol: Document 08/15/23 14:31 [facility] (Rec: 08/15/23 15:19 [facility] [id number]) Manual Assessments Soft Tissue Assessment Soft Tissue Mobility Assessment tenderness: L pecs, infra & supraspinatus, biceps, & biceps and supra tendon Joint Mobility Assessment Joint Mobility Assessment 1st rib elevation L PT-OP-J Posture/Palpation/Skin Start: 08/08/23 08:07 Freq: Status: Active Protocol: Document 08/15/23 14:31 [facility] (Rec: 08/15/23 15:19 [facility] [id number]) Posture Evaluation Scarlett Postural Classification System Scarlett Postural Classifications Posterior/Anterior Elbow Flexion Test 1 Comments Posture Comments L>R humerus ant in glenoid, ant tipped, abd, lat tipped L scap, inc kyphosis, mod fwd head PT-OP-K Range of Motion Start: 08/08/23 08:07 Freq: Status: Active Protocol: Document 08/15/23 14:31 [facility] (Rec: 08/15/23 15:19 [facility] [id number]) Shoulder Goniometric Range of Motion Shoulder Left Passive Testing Position Supine Flexion 112 Extension 46 Abduction 80 External Rotation at 45 degrees 44 Abduction Internal Rotation 46 Comments ir at 45 scap plane ;pain all Right Active Flexion 135 Extension 51 Abduction 162 External Rotation at 0 degrees Abduction 70 Internal Rotation Behind Back (text) t7 Left Active Flexion 81 Extension 31 Abduction 66 External Rotation at 0 degrees Abduction 17 Internal Rotation Behind Back (text) mid sacrum Comments pain PT-OP-L Special Tests Start: 08/08/23 08:07 Freq: Status: Active Protocol: Document 08/15/23 14:31 [facility] (Rec: 08/15/23 15:19 [facility] [id number]) Special Tests Shoulder Special Tests crank Test Results pos biceps loads Test Results pos [place] Test Test Results pain but pain in speeds also Speed's Biceps Test Results pain but pain in obriens also Car Henrik Impingement Test Results neg Neer Impingement Test Results pos Empty Can Test Results neg PT-OP-M Strength Start: 08/08/23 08:07 Freq: Status: Active Protocol: Document 08/15/23 14:31 [facility] (Rec: 08/15/23 15:19 [facility] [id number]) Shoulder Strength Shoulder Manual Muscle Testing Right Flexion 4 Good Extension 5 Normal Abduction (C5) 2- Poor- External Rotation 3+ Fair+ Internal Rotation 3+ Fair+ Comments pain w/IR Left Flexion 3+ Fair+ Extension 3+ Fair+ Abduction (C5) 4 Good External Rotation 4 Good Internal Rotation 4 Good Elbow/Forearm Strength Elbow and Forearm Manual Muscle Testing Right Flexion (C6) 5 Normal Extension (C7) 5 Normal Pronation 5 Normal Supination 5 Normal Left Flexion (C6) 4 Good Extension (C7) 4 Good Pronation 3+ Fair+ Supination 4 Good Comments pain w.flex and sup PT-OP-Q Treatments Start: 08/08/23 08:07 Freq: Status: Active Protocol: Document 08/15/23 14:31 [facility] (Rec: 08/15/23 15:19 [facility] [id number]) Therapeutic Exercises Supine Exercises flex Supine Exercise Name AAROM dowel Side left Reps/Minutes 15 Comments press up to flex as able Standing Exercises ext Standing Exercise Name AAROM cane Side left Reps/Minutes 15 ER Standing Exercise Name AAROM cane Side left Reps/Minutes 15 counter stretch Side bilateral Reps/Minutes 15sec x5 Self-Care/Home Management Treatment Education Patient Education Home Exercise Program Other Education 9 min: edu on discussion of finding (limited AROM compared to PROM), labral and biceps testing positive indicating possible pathologies. Edu on comfortable range w/exercises -no greater than 3/10 pain; edu to ice after PT exercises and sessions. 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 LTG Duration 11/07/23 ROM Short Term Goal (STG) Pt will improve flex and abd of L shoulder by at least 10 deg ea. STG Duration 09/21/23 Deburrer Machine Goal (LTG) Pt will have full L AROM of L shoulder w/o inc pain in order to allow greater ease w/ADLs LTG Duration 11/07/23 Quick dash Impairment 54.4 Short Term Goal (STG) Pt will improve quick dash score to now greater than 34 to show improved functional ability w/L shoulder. STG Duration 10/08/23 Skilled Nursing Goal (LTG) Pt will improve quick dash score to now greater than 4 to show improved functional ability w/L shoulder. LTG Duration 11/07/23 Assessment Summary Assessment Pt presents w/ L shoulder pain that started after tripping at work and feeling a sharp pain in her shoulder 2 months ago. She now has pain that is worsening in brachium that is sharp w/movement and has a residual dull ache after doing activity. She has a job that requires reaching and occ lifting that she is modifying her movement with and has pain w/ADLs and single activities like reaching. She has limited L AROM and PROM and weakenss of L shoulder. She was positive for testing w/some biceps and labral testing and pt notes MRI showed tendonitis , but unsure what else as clinic did not send chart notes. Pt would benefit from skilled PT to address ROM, strength, and functional ability along w/dec pain in order to return pt to full function. Physical Therapy Plan Frequency and Duration Frequency of Treatment 2x/Week Duration of treatment (weeks) 12 Plan of Care Start Date 08/15/23 Plan of Care End Date 11/07/23 Therapeutic Interventions Therapeutic Interventions Gait Training,Home Exercise Program,Joint Mobilizations, Manual Therapy,Neuromuscular Re-education,Orthotic/ Prosthetic Management,Patient/ Caregiver Education,Self-Care/ Home Management,Soft Tissue Mobilization,Taping, Therapeutic Activities, Therapeutic Exercises Modalities Cold Pack/Ice Massage,Electric Stimulation,Hot Packs, Infrared Therapy,Iontophoresis ,Traction- Mechanical, Ultrasound Other Therapeutic Interventions dexamethasone ionto Next Visit Focus/Plan Next Note Type Treatment Note Next Visit Plan review HEP; try pulleys, try UBE, try doorway ext stretch, AAROM Manual: STM to pecs, infraspinatus, AC & SC jt mobs , upper thoracic and rib mobs and GH mobs
--- NOTE | 2023-08-15 18:44 | PT.OPPOC ---
Physical, Occupational & Speech Therapy At [facility] Current Diagnoses Abnormal posture (08/15/23) Weakness (08/15/23) Superior glenoid labrum lesion of left shoulder, subsequent encounter (08/15/23) Strain of unspecified muscle, fascia and tendon at shoulder and upper arm level, left arm, initial encounter (08/15/23) Visit Care Team Role Provider Type Keny Ibarra MD Family Provider Physician Primary Care Provider Specialty: Family Practice Address: [address] [place] [address], [address] [place] [address], [id number] Email: [email or web address] Mello Yates MD Attending Provider Non-Staff Referring Provider Specialty: Physical Medicine and Rehab Address: [address] [place] [address], [id number] Email: Plan Of Care PT-OP-T Assessment and Plan Start: 08/08/23 08:07 Freq: Status: Active Protocol: Document 08/15/23 14:31 [facility] (Rec: 08/15/23 15:19 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 LTG Duration 11/07/23 ROM Short Term Goal (STG) Pt will improve flex and abd of L shoulder by at least 10 deg ea. STG Duration 3/15/24 Laster Hand Goal (LTG) Pt will have full L AROM of L shoulder w/o inc pain in order to allow greater ease w/ADLs LTG Duration 11/07/23 Quick dash Impairment 54.4 Short Term Goal (STG) Pt will improve quick dash score to now greater than 34 to show improved functional ability w/L shoulder. STG Duration 10/08/23 Laster Hand Goal (LTG) Pt will improve quick dash score to now greater than 4 to show improved functional ability w/L shoulder. LTG Duration 11/07/23 Assessment Summary Assessment Pt presents w/ L shoulder pain that started after tripping at work and feeling a sharp pain in her shoulder 2 months ago. She now has pain that is worsening in brachium that is sharp w/movement and has a residual dull ache after doing activity. She has a job that requires reaching and occ lifting that she is modifying her movement with and has pain w/ADLs and single activities like reaching. She has limited L AROM and PROM and weakenss of L shoulder. She was positive for testing w/some biceps and labral testing and pt notes MRI showed tendonitis , but unsure what else as clinic did not send chart notes. Pt would benefit from skilled PT to address ROM, strength, and functional ability along w/dec pain in order to return pt to full function. Physical Therapy Plan Frequency and Duration Frequency of Treatment 2x/Week Duration of treatment (weeks) 12 Plan of Care Start Date 08/15/23 Plan of Care End Date 11/07/23 Therapeutic Interventions Therapeutic Interventions Gait Training,Home Exercise Program,Joint Mobilizations, Manual Therapy,Neuromuscular Re-education,Orthotic/ Prosthetic Management,Patient/ Caregiver Education,Self-Care/ Home Management,Soft Tissue Mobilization,Taping, Therapeutic Activities, Therapeutic Exercises Modalities Cold Pack/Ice Massage,Electric Stimulation,Hot Packs, Infrared Therapy,Iontophoresis ,Traction- Mechanical, Ultrasound Other Therapeutic Interventions dexamethasone ionto Next Visit Focus/Plan Next Note Type Treatment Note Next Visit Plan review HEP; try pulleys, try UBE, try doorway ext stretch, AAROM Manual: STM to pecs, infraspinatus, AC & SC jt mobs , upper thoracic and rib mobs and GH mobs Plan of Care Dates Plan of Care Start Date 08/15/23 Plan of Care End Date 11/07/23 Electronically Signed by: Radha Nj, PT 08/15/23 1844 If you are in agreement with this Plan of Care, please return a signed and dated copy. I have reviewed this Plan of Care and certify that the skilled therapy services above are required to meet the patient?s needs. Physician Signature Date Printed Name and Credentials Clinical Instructor Signature Printed Name and Credentials
--- NOTE | 2023-08-21 09:49 | PT.OTN ---
Current Diagnoses Abnormal posture (08/21/23) Weakness (08/21/23) Superior glenoid labrum lesion of left shoulder, subsequent encounter (08/21/23) Strain of unspecified muscle, fascia and tendon at shoulder and upper arm level, left arm, initial encounter (08/21/23) Physical Therapy Treatment Note PT-OP-A Visit Information Start: 08/08/23 08:07 Freq: Status: Active Protocol: Document 08/21/23 09:04 [facility] (Rec: 08/21/23 09:49 [facility] [id number]) Out-Patient Physical Therapy Visit Information Visit Information Visit Type Treatment Note Visit Start Time 09:06 Visit Stop Time 09:55 Visit Number 08/20 Number of BLOW DOWN HELPER Visits 0 PT-OP-B Current Condition Start: 08/08/23 08:07 Freq: Status: Active Protocol: Document 08/15/23 14:31 [facility] (Rec: 08/15/23 15:19 [facility] [id number]) Current Condition History of Current Condition Onset Date Jun 11, 2023 Current Complaints L brachium History of Current Condition Pt fell carrying mail bins that broke her fall and felt a sharp pain at that time. It went away but now when she rolls certain ways, or reach w /her arm. She is seeing Dr. Larios. Per pt, w/MRI there is tendonitis, arthritis present and not recommending surgery. A few weeks ago, she reached to grab a cup that was falling and it was sharp pain. She feels like she is losing upper body strength and feels like she is losing ROM and strength B as she is avoiding motion. denies numbness or tingling. pain is sharp w/movement then has a lasting achiness. 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 Pain has not gotten better and in someways has gotten worse w/ the sharp pains. Treatment Goals Patient/Caregiver Goals be able to use arm fully w/o pain PT-OP-C Subjective Start: 08/08/23 08:07 Freq: Status: Active Protocol: Document 08/21/23 09:04 [facility] (Rec: 08/21/23 09:49 [facility] [id number]) OP-PT Subjective Patient Comments Patient Comments Pt reports she tripped up the stairs and had shapr pain. Notes she didn't do exercises much because didn't remember what she was supposed to do even w/paper MRI came in and showed tendonosis of biceps tendon, supra and infraspinatus. GH and AC arthitis and possible chronic post labral tearing PT-OP-F Manual Assessment Start: 08/08/23 08:07 Freq: Status: Active Protocol: Document 08/15/23 14:31 [facility] (Rec: 08/15/23 15:19 [facility] [id number]) Manual Assessments Soft Tissue Assessment Soft Tissue Mobility Assessment tenderness: L pecs, infra & supraspinatus, biceps, & biceps and supra tendon Joint Mobility Assessment Joint Mobility Assessment 1st rib elevation L PT-OP-J Posture/Palpation/Skin Start: 08/08/23 08:07 Freq: Status: Active Protocol: Document 08/15/23 14:31 [facility] (Rec: 08/15/23 15:19 [facility] [id number]) Posture Evaluation [facility] Postural Classification System [facility] Postural Classifications Posterior/Anterior Elbow Flexion Test 1 Comments Posture Comments L>R humerus ant in glenoid, ant tipped, abd, lat tipped L scap, inc kyphosis, mod fwd head PT-OP-K Range of Motion Start: 08/08/23 08:07 Freq: Status: Active Protocol: Document 08/15/23 14:31 [facility] (Rec: 08/15/23 15:19 [facility] [id number]) Shoulder Goniometric Range of Motion Shoulder Left Passive Testing Position Supine Flexion 112 Extension 46 Abduction 80 External Rotation at 45 degrees 44 Abduction Internal Rotation 46 Comments ir at 45 scap plane ;pain all Right Active Flexion 135 Extension 51 Abduction 162 External Rotation at 0 degrees Abduction 70 Internal Rotation Behind Back (text) t7 Left Active Flexion 81 Extension 31 Abduction 66 External Rotation at 0 degrees Abduction 17 Internal Rotation Behind Back (text) mid sacrum Comments pain PT-OP-L Special Tests Start: 08/08/23 08:07 Freq: Status: Active Protocol: Document 08/15/23 14:31 [facility] (Rec: 08/15/23 15:19 [facility] [id number]) Special Tests Shoulder Special Tests crank Test Results pos biceps loads Test Results pos Delta Test Test Results pain but pain in speeds also Speed's Biceps Test Results pain but pain in obriens also Car Henrik Impingement Test Results neg Neer Impingement Test Results pos Empty Can Test Results neg PT-OP-M Strength Start: 08/08/23 08:07 Freq: Status: Active Protocol: Document 08/15/23 14:31 [facility] (Rec: 08/15/23 15:19 [facility] [id number]) Shoulder Strength Shoulder Manual Muscle Testing Right Flexion 4 Good Extension 5 Normal Abduction (C5) 2- Poor- External Rotation 3+ Fair+ Internal Rotation 3+ Fair+ Comments pain w/IR Left Flexion 3+ Fair+ Extension 3+ Fair+ Abduction (C5) 4 Good External Rotation 4 Good Internal Rotation 4 Good Elbow/Forearm Strength Elbow and Forearm Manual Muscle Testing Right Flexion (C6) 5 Normal Extension (C7) 5 Normal Pronation 5 Normal Supination 5 Normal Left Flexion (C6) 4 Good Extension (C7) 4 Good Pronation 3+ Fair+ Supination 4 Good Comments pain w.flex and sup PT-OP-Q Treatments Start: 08/08/23 08:07 Freq: Status: Active Protocol: Document 08/21/23 09:04 [facility] (Rec: 08/21/23 09:49 [facility] [id number]) Therapeutic Exercises Supine Exercises flex Supine Exercise Name AAROM dowel Side left Reps/Minutes 15 Comments press up to flex as able Sitting Exercises pulleys Sitting Exercise Name flex, scaption Side left Reps/Minutes 15 ea slow controlled Comments AAROM Standing Exercises ext Standing Exercise Name AAROM cane Side left Reps/Minutes 15 ER Standing Exercise Name AAROM cane Side left Reps/Minutes 15 counter stretch Side bilateral Reps/Minutes 15sec x5 Manual Therapy Treatment Soft Tissue Mobilization inf Body Location L lats, teres Mobilization Type Sustained Pressure Intensity/Depth Moderate Body Position Supine Comments w/flex biceps Body Location L Mobilization Type Rolling Intensity/Depth Moderate Body Position Supine superior Body Location L UT, LS Mobilization Type Rolling Body Position Supine pec Body Location L Mobilization Type Rolling Intensity/Depth Moderate Body Position Supine Comments w/flex & rot Self-Care/Home Management Treatment Education Other Education 8 min: reminder of comfortable range w/exercises; added extra cues w/pt to help her remember her exercsies on the sheet EDu re: what tendonosis is and what tendons are involved and how shoulder complex works ( all joints involved) PT-OP-R Modalities Start: 08/08/23 08:07 Freq: Status: Active Protocol: Document 08/21/23 09:04 [facility] (Rec: 08/21/23 09:49 [facility] [id number]) Hot Pack/Cold Pack Treatment Cold Pack Location L shoulder Patient Position Hooklying PT-OP-T Assessment and Plan Start: 08/08/23 08:07 Freq: Status: Active Protocol: Document 08/21/23 09:04 [facility] (Rec: 08/21/23 09:49 [facility] [id number]) Physical Therapy Assessment Goals activity Short Term Goal (STG) Pt will be able to dress w/o inc pain STG Duration 10/08/23 Postal Clerk Goal (LTG) pt will be able to do all work tasks and home tasks w/o accommodation or inc pain in LUE LTG Duration 11/07/23 strength Short Term Goal (STG) Pt will be indep w/HEP STG Duration 10/08/23 Postal Clerk Goal (LTG) Pt will score at least 4+/5 on all LUE MMT and 3/5 EFT in order to show improved stabiltiy to allow her to do her work tasks. LTG Duration 11/07/23 ROM Short Term Goal (STG) Pt will improve flex and abd of L shoulder by at least 10 deg ea. STG Duration 09/21/23 Postal Clerk Goal (LTG) Pt will have full L AROM of L shoulder w/o inc pain in order to allow greater ease w/ADLs LTG Duration 11/07/23 Quick dash Impairment 54.4 Short Term Goal (STG) Pt will improve quick dash score to now greater than 34 to show improved functional ability w/L shoulder. STG Duration 10/08/23 Postal Clerk Goal (LTG) Pt will improve quick dash score to now greater than 4 to show improved functional ability w/L shoulder. LTG Duration 11/07/23 Assessment Summary Assessment Pt did well with exercises but does require cues throughout all for performance and form. She ignacia lneed further review to make sure she does them appropriately at home. she had imrpoved flex ROM passively w /manual Physical Therapy Plan Frequency and Duration Frequency of Treatment 2x/Week Duration of treatment (weeks) 12 Plan of Care Start Date 08/15/23 Plan of Care End Date 11/07/23 Next Visit Focus/Plan Next Note Type Treatment Note Next Visit Plan cont to work AAROM; can try UBE Manual: STM to pecs, infraspinatus, AC & SC jt mobs , upper thoracic and rib mobs and GH mobs
--- NOTE | 2023-08-23 14:31 | PT.OTN ---
Current Diagnoses Abnormal posture (08/23/23) Weakness (08/23/23) Superior glenoid labrum lesion of left shoulder, subsequent encounter (08/23/23) Strain of unspecified muscle, fascia and tendon at shoulder and upper arm level, left arm, initial encounter (08/23/23) Physical Therapy Treatment Note PT-OP-A Visit Information Start: 08/08/23 08:07 Freq: Status: Active Protocol: Document 08/23/23 13:49 SP (Rec: 08/23/23 14:33 SP [id number]) Out-Patient Physical Therapy Visit Information Visit Information Visit Type Treatment Note Visit Start Time 13:49 Visit Stop Time 14:31 Visit Number 3/ Number of CHEESEMAKING LABORER Visits 1 PT-OP-B Current Condition Start: 08/08/23 08:07 Freq: Status: Active Protocol: Document 08/15/23 14:31 [facility] (Rec: 08/15/23 15:19 [facility] [id number]) Current Condition History of Current Condition Onset Date Jun 11, 2023 Current Complaints L brachium History of Current Condition Pt fell carrying mail bins that broke her fall and felt a sharp pain at that time. It went away but now when she rolls certain ways, or reach w /her arm. She is seeing Dr. Larios. Per pt, w/MRI there is tendonitis, arthritis present and not recommending surgery. A few weeks ago, she reached to grab a cup that was falling and it was sharp pain. She feels like she is losing upper body strength and feels like she is losing ROM and strength B as she is avoiding motion. denies numbness or tingling. pain is sharp w/movement then has a lasting achiness. 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 Pain has not gotten better and in someways has gotten worse w/ the sharp pains. Treatment Goals Patient/Caregiver Goals be able to use arm fully w/o pain PT-OP-C Subjective Start: 08/08/23 08:07 Freq: Status: Active Protocol: Document 08/23/23 13:49 SP (Rec: 08/23/23 14:33 SP [id number]) OP-PT Subjective Patient Comments Patient Comments Pt reports had a fall over weekend foot caught step and had to reach out to catch self on cement step, reported more pain reaching out front than the UE wB on step. She reports had a massage at 11am today for 50 min focused on upper body: neck/back/L shld more and was pretty intense pressure found using breath for support tolerance. She reports has hard time putting on deodrant RUE with LUE, can' t lift arm as well as used to. PT-OP-F Manual Assessment Start: 08/08/23 08:07 Freq: Status: Active Protocol: Document 08/15/23 14:31 [facility] (Rec: 08/15/23 15:19 [facility] [id number]) Manual Assessments Soft Tissue Assessment Soft Tissue Mobility Assessment tenderness: L pecs, infra & supraspinatus, biceps, & biceps and supra tendon Joint Mobility Assessment Joint Mobility Assessment 1st rib elevation L PT-OP-J Posture/Palpation/Skin Start: 08/08/23 08:07 Freq: Status: Active Protocol: Document 08/15/23 14:31 [facility] (Rec: 08/15/23 15:19 [facility] [id number]) Posture Evaluation [facility] Postural Classification System [facility] Postural Classifications Posterior/Anterior Elbow Flexion Test 1 Comments Posture Comments L>R humerus ant in glenoid, ant tipped, abd, lat tipped L scap, inc kyphosis, mod fwd head PT-OP-K Range of Motion Start: 08/08/23 08:07 Freq: Status: Active Protocol: Document 08/15/23 14:31 [facility] (Rec: 08/15/23 15:19 [facility] [id number]) Shoulder Goniometric Range of Motion Shoulder Left Passive Testing Position Supine Flexion 112 Extension 46 Abduction 80 External Rotation at 45 degrees 44 Abduction Internal Rotation 46 Comments ir at 45 scap plane ;pain all Right Active Flexion 135 Extension 51 Abduction 162 External Rotation at 0 degrees Abduction 70 Internal Rotation Behind Back (text) t7 Left Active Flexion 81 Extension 31 Abduction 66 External Rotation at 0 degrees Abduction 17 Internal Rotation Behind Back (text) mid sacrum Comments pain PT-OP-L Special Tests Start: 08/08/23 08:07 Freq: Status: Active Protocol: Document 08/15/23 14:31 [facility] (Rec: 08/15/23 15:19 [facility] [id number]) Special Tests Shoulder Special Tests crank Test Results pos biceps loads Test Results pos [place] Test Test Results pain but pain in speeds also Speed's Biceps Test Results pain but pain in obriens also Car Henrik Impingement Test Results neg Neer Impingement Test Results pos Empty Can Test Results neg PT-OP-M Strength Start: 08/08/23 08:07 Freq: Status: Active Protocol: Document 08/15/23 14:31 LR (Rec: 08/15/23 15:19 [facility] [id number]) Shoulder Strength Shoulder Manual Muscle Testing Right Flexion 4 Good Extension 5 Normal Abduction (C5) 2- Poor- External Rotation 3+ Fair+ Internal Rotation 3+ Fair+ Comments pain w/IR Left Flexion 3+ Fair+ Extension 3+ Fair+ Abduction (C5) 4 Good External Rotation 4 Good Internal Rotation 4 Good Elbow/Forearm Strength Elbow and Forearm Manual Muscle Testing Right Flexion (C6) 5 Normal Extension (C7) 5 Normal Pronation 5 Normal Supination 5 Normal Left Flexion (C6) 4 Good Extension (C7) 4 Good Pronation 3+ Fair+ Supination 4 Good Comments pain w.flex and sup PT-OP-Q Treatments Start: 08/08/23 08:07 Freq: Status: Active Protocol: Document 08/23/23 13:49 SP (Rec: 08/23/23 14:33 SP [id number]) Therapeutic Exercises Supine Exercises flex Supine Exercise Name AAROM dowel Side left Reps/Minutes 15 Comments press up to flex as able, 122* FF Sidelying Exercises ABD, FF Sidelying Exercise Name ABD approx 95 deg, FF, approx 120 deg Side left Resistance AAROM Reps/Minutes x5 reps each Comments manual assist through ROM with tactile cues for scapular inferior glide Sitting Exercises pulleys Sitting Exercise Name flex, scaption Side left Resistance AAROM Equipment Used use mirror level shlds Reps/Minutes 15 ea slow controlled Comments cued neutral retraction/ midline CA, less strain in scaption plane Standing Exercises pendulum Standing Exercise Name trialed in PT Side left Resistance PROM Reps/Minutes 1 min Comments ed /c performance wt shift trunk ext Side left Resistance AAROM cane Equipment Used use mirror Reps/Minutes 15 Comments stay within painfree/arlene range ER Standing Exercise Name HEP review Side left Resistance AAROM cane- back to wall Equipment Used elbow at side/towel behind upper arm/betweentrunk/elbow Reps/Minutes 15 Comments cued maintain 90 deg, ER counter stretch Standing Exercise Name HEP reviewed Side bilateral Reps/Minutes 15sec x5 Manual Therapy Treatment Soft Tissue Mobilization biceps Body Location L Mobilization Type Rolling Intensity/Depth Moderate Body Position Supine Comments /c flex/IR/ER AAROM- ed gently painfree in PT and with massage therapist pec Body Location L Mobilization Type Rolling Intensity/Depth Moderate Body Position Supine Comments /c flex/IR/ER AAROM- ed gently painfree in PT and with massage therapist Joint Mobilizations L scapulothoracic Direction retraction, depression, UR Grade II Body Position RSidelying Comments manual then fac support during ABD, FF on R side AAROM. Self-Care/Home Management Treatment Education Patient Education Pain Management,Safety Other Education Education on safety provide feedback to massage therapist tolerance in pressure while recovering. Utilized MWM AAROM and asked pt feedback on pressure and gave ed let MT know for effective benefits. She verbalized understanding didn't give feedback like should have had MT lighten up thought if helps her feel better, she would tolerate it. PT-OP-R Modalities Start: 08/08/23 08:07 Freq: Status: Active Protocol: Document 08/23/23 13:49 SP (Rec: 08/23/23 14:33 SP [id number]) Hot Pack/Cold Pack Treatment Cold Pack Location L shoulder Patient Position Sitting Patient Tolerance Good Comments 4 min- feels good, not as sore. f PT-OP-T Assessment and Plan Start: 08/08/23 08:07 Freq: Status: Active Protocol: Document 08/23/23 13:49 SP (Rec: 08/23/23 14:33 SP [id number]) Physical Therapy Assessment Goals activity Short Term Goal (STG) Pt will be able to dress w/o inc pain STG Duration 10/08/23 Pump Service Supervisor Goal (LTG) pt will be able to do all work tasks and home tasks w/o accommodation or inc pain in LUE LTG Duration 11/07/23 strength Short Term Goal (STG) Pt will be indep w/HEP STG Duration 10/08/23 Fpc Goal (LTG) Pt will score at least 4+/5 on all LUE MMT and 3/5 EFT in order to show improved stabiltiy to allow her to do her work tasks. LTG Duration 11/07/23 ROM Short Term Goal (STG) Pt will improve flex and abd of L shoulder by at least 10 deg ea. STG Duration 09/21/23 Pump Service Supervisor Goal (LTG) Pt will have full L AROM of L shoulder w/o inc pain in order to allow greater ease w/ADLs LTG Duration 11/07/23 Quick dash Impairment 54.4 Short Term Goal (STG) Pt will improve quick dash score to now greater than 34 to show improved functional ability w/L shoulder. STG Duration 10/08/23 Fpc Goal (LTG) Pt will improve quick dash score to now greater than 4 to show improved functional ability w/L shoulder. LTG Duration 11/07/23 Assessment Summary Assessment Pt improved post cuing with self corrections use back against wall for ER trunk stability and mirror today for self awareness scapular inferior glide during [place] AAROM . She improved AAROM supine and sidelying today with tactile and education cues for scapular inferior glide support to gain ROM. Pt good tolerance to manual in PT and CP cool down end tx for soreness recovery, better understanding safety healing and pressure during MT sessions feedback for benefit adjustments while still gets gains in ROM. Physical Therapy Plan Frequency and Duration Frequency of Treatment 2x/Week Duration of treatment (weeks) 12 Plan of Care Start Date 08/15/23 Plan of Care End Date 11/07/23 Therapeutic Interventions Therapeutic Interventions Gait Training,Home Exercise Program,Joint Mobilizations, Manual Therapy,Neuromuscular Re-education,Orthotic/ Prosthetic Management,Patient/ Caregiver Education,Self-Care/ Home Management,Soft Tissue Mobilization,Taping, Therapeutic Activities, Therapeutic Exercises Modalities Cold Pack/Ice Massage,Electric Stimulation,Hot Packs, Infrared Therapy,Iontophoresis ,Traction- Mechanical, Ultrasound Other Therapeutic Interventions dexamethasone ionto Next Visit Focus/Plan Next Note Type Treatment Note Next Visit Plan Continue AAROM, tactile cues for scapular mobility. Next tx, can try UBE Manual: STM to pecs, infraspinatus, AC & SC jt mobs , upper thoracic and rib mobs and GH mobs
--- NOTE | 2023-08-27 09:49 | PT.OTN ---
Current Diagnoses Abnormal posture (08/27/23) Weakness (08/27/23) Superior glenoid labrum lesion of left shoulder, subsequent encounter (08/27/23) Strain of unspecified muscle, fascia and tendon at shoulder and upper arm level, left arm, initial encounter (08/27/23) Physical Therapy Treatment Note PT-OP-A Visit Information Start: 08/08/23 08:07 Freq: Status: Active Protocol: Document 08/27/23 09:23 [facility] (Rec: 08/27/23 09:48 [facility] [id number]) Out-Patient Physical Therapy Visit Information Visit Information Visit Type Treatment Note Visit Start Time 09:02 Visit Stop Time 09:44 Visit Number 10/18 Number of PHARMACEUTICAL BOTANIST Visits 0 PT-OP-B Current Condition Start: 08/08/23 08:07 Freq: Status: Active Protocol: Document 08/15/23 14:31 [facility] (Rec: 08/15/23 15:19 [facility] [id number]) Current Condition History of Current Condition Onset Date Jun 11, 2023 Current Complaints L brachium History of Current Condition Pt fell carrying mail bins that broke her fall and felt a sharp pain at that time. It went away but now when she rolls certain ways, or reach w /her arm. She is seeing Dr. Larios. Per pt, w/MRI there is tendonitis, arthritis present and not recommending surgery. A few weeks ago, she reached to grab a cup that was falling and it was sharp pain. She feels like she is losing upper body strength and feels like she is losing ROM and strength B as she is avoiding motion. denies numbness or tingling. pain is sharp w/movement then has a lasting achiness. 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 Pain has not gotten better and in someways has gotten worse w/ the sharp pains. Treatment Goals Patient/Caregiver Goals be able to use arm fully w/o pain PT-OP-C Subjective Start: 08/08/23 08:07 Freq: Status: Active Protocol: Document 08/27/23 09:23 [facility] (Rec: 08/27/23 09:48 [facility] [id number]) OP-PT Subjective Patient Comments Patient Comments Pt reports doing counter stretch and that irritated her shoulder for the rest of the day. It normally feels fine at thearpy doing the stretch so unsure why. She has had less episodes of pain at night . PT-OP-F Manual Assessment Start: 08/08/23 08:07 Freq: Status: Active Protocol: Document 08/15/23 14:31 [facility] (Rec: 08/15/23 15:19 [facility] [id number]) Manual Assessments Soft Tissue Assessment Soft Tissue Mobility Assessment tenderness: L pecs, infra & supraspinatus, biceps, & biceps and supra tendon Joint Mobility Assessment Joint Mobility Assessment 1st rib elevation L PT-OP-J Posture/Palpation/Skin Start: 08/08/23 08:07 Freq: Status: Active Protocol: Document 08/15/23 14:31 [facility] (Rec: 08/15/23 15:19 [facility] [id number]) Posture Evaluation [facility] Postural Classification System [facility] Postural Classifications Posterior/Anterior Elbow Flexion Test 1 Comments Posture Comments L>R humerus ant in glenoid, ant tipped, abd, lat tipped L scap, inc kyphosis, mod fwd head PT-OP-K Range of Motion Start: 08/08/23 08:07 Freq: Status: Active Protocol: Document 08/15/23 14:31 [facility] (Rec: 08/15/23 15:19 [facility] [id number]) Shoulder Goniometric Range of Motion Shoulder Left Passive Testing Position Supine Flexion 112 Extension 46 Abduction 80 External Rotation at 45 degrees 44 Abduction Internal Rotation 46 Comments ir at 45 scap plane ;pain all Right Active Flexion 135 Extension 51 Abduction 162 External Rotation at 0 degrees Abduction 70 Internal Rotation Behind Back (text) t7 Left Active Flexion 81 Extension 31 Abduction 66 External Rotation at 0 degrees Abduction 17 Internal Rotation Behind Back (text) mid sacrum Comments pain PT-OP-L Special Tests Start: 08/08/23 08:07 Freq: Status: Active Protocol: Document 08/15/23 14:31 [facility] (Rec: 08/15/23 15:19 [facility] [id number]) Special Tests Shoulder Special Tests crank Test Results pos biceps loads Test Results pos [place] Test Test Results pain but pain in speeds also Speed's Biceps Test Results pain but pain in obriens also Car Henrik Impingement Test Results neg Neer Impingement Test Results pos Empty Can Test Results neg PT-OP-M Strength Start: 08/08/23 08:07 Freq: Status: Active Protocol: Document 08/15/23 14:31 [facility] (Rec: 08/15/23 15:19 [facility] [id number]) Shoulder Strength Shoulder Manual Muscle Testing Right Flexion 4 Good Extension 5 Normal Abduction (C5) 2- Poor- External Rotation 3+ Fair+ Internal Rotation 3+ Fair+ Comments pain w/IR Left Flexion 3+ Fair+ Extension 3+ Fair+ Abduction (C5) 4 Good External Rotation 4 Good Internal Rotation 4 Good Elbow/Forearm Strength Elbow and Forearm Manual Muscle Testing Right Flexion (C6) 5 Normal Extension (C7) 5 Normal Pronation 5 Normal Supination 5 Normal Left Flexion (C6) 4 Good Extension (C7) 4 Good Pronation 3+ Fair+ Supination 4 Good Comments pain w.flex and sup PT-OP-Q Treatments Start: 08/08/23 08:07 Freq: Status: Active Protocol: Document 08/27/23 09:23 [facility] (Rec: 08/27/23 09:48 [facility] [id number]) Cardio Equipment Upper Body Ergometer (UBE) Duration (Minutes) 4 Seat Position 10 Height 4 Other fwd/back Therapeutic Exercises Supine Exercises flex Supine Exercise Name AAROM dowel Side left Reps/Minutes 10 Comments press up to flex as able Sidelying Exercises ABD, FF Sidelying Exercise Name ff to 90 deg Side left Resistance AROM Reps/Minutes 8 Comments cues initially for motion; attempted abd but painful at 40 deg so stopped Sitting Exercises pulleys Sitting Exercise Name flex, scaption,abd Side left Resistance AAROM Reps/Minutes 15 ea slow controlled Comments cued neutral retraction/ midline CA, less strain in scaption plane Standing Exercises Shoulder ext Standing Exercise Name 1. rows 2. ext Side bilateral Equipment Used peach band Reps/Minutes 15 ea pendulum Standing Exercise Name fwd/back Side left Resistance PROM Reps/Minutes 1 min Comments ed /c performance wt shift trunk ext Side left Resistance AAROM cane Reps/Minutes 15 Comments stay within painfree/arlene range ER Standing Exercise Name HEP review Side left Resistance AAROM cane- back to wall Reps/Minutes 15 Comments cues to maintain trunk position counter stretch Standing Exercise Name HEP reviewed Side bilateral Reps/Minutes 15sec x3 Comments cues for comfortable range Manual Therapy Treatment Soft Tissue Mobilization superior Body Location L UT, LS & scalenes Mobilization Type Rolling Body Position Supine pec Body Location L Mobilization Type Rolling Intensity/Depth Moderate Body Position Supine Comments w/rot Joint Mobilizations AC Joint clavicle ant FM s/l GH Joint L Direction distraction & post PT-OP-R Modalities Start: 08/08/23 08:07 Freq: Status: Active Protocol: Document 08/23/23 13:49 SP (Rec: 08/23/23 14:33 SP [id number]) Hot Pack/Cold Pack Treatment Cold Pack Location L shoulder Patient Position Sitting Patient Tolerance Good Comments 4 min- feels good, not as sore. f PT-OP-T Assessment and Plan Start: 08/08/23 08:07 Freq: Status: Active Protocol: Document 08/27/23 09:23 [facility] (Rec: 08/27/23 09:48 [facility] [id number]) Physical Therapy Assessment Goals activity Short Term Goal (STG) Pt will be able to dress w/o inc pain STG Duration 10/08/23 Prison Goal (LTG) pt will be able to do all work tasks and home tasks w/o accommodation or inc pain in LUE LTG Duration 11/07/23 strength Short Term Goal (STG) Pt will be indep w/HEP STG Duration 10/08/23 Tribal Council Member Goal (LTG) Pt will score at least 4+/5 on all LUE MMT and / EFT in order to show improved stabiltiy to allow her to do her work tasks. LTG Duration 11/07/23 ROM Short Term Goal (STG) Pt will improve flex and abd of L shoulder by at least 10 deg ea. STG Duration 09/21/23 Tribal Council Member Goal (LTG) Pt will have full L AROM of L shoulder w/o inc pain in order to allow greater ease w/ADLs LTG Duration 11/07/23 Quick dash Impairment 54.4 Short Term Goal (STG) Pt will improve quick dash score to now greater than 34 to show improved functional ability w/L shoulder. STG Duration 10/08/23 Prison Goal (LTG) Pt will improve quick dash score to now greater than 4 to show improved functional ability w/L shoulder. LTG Duration 11/07/23 Assessment Summary Assessment Less cues needed for AAROM exercsies today. Needs only occ cues for posture and/or comfortable range. Tolerated progression to strengthening today. COnt to have signficiant pec tightness. Physical Therapy Plan Frequency and Duration Frequency of Treatment 2x/Week Duration of treatment (weeks) 12 Plan of Care Start Date 08/15/23 Plan of Care End Date 11/07/23 Next Visit Focus/Plan Next Note Type Treatment Note Next Visit Plan Continue AAROM, tactile cues for scapular mobility and slow progress to strength and AROM as able Manual: STM to pecs, infraspinatus, AC & SC jt mobs , upper thoracic and rib mobs and GH mobs
--- NOTE | 2023-08-30 11:04 | PT.OTN ---
Current Diagnoses Abnormal posture (08/30/23) Weakness (08/30/23) Superior glenoid labrum lesion of left shoulder, subsequent encounter (08/30/23) Strain of unspecified muscle, fascia and tendon at shoulder and upper arm level, left arm, initial encounter (08/30/23) Physical Therapy Treatment Note PT-OP-A Visit Information Start: 08/08/23 08:07 Freq: Status: Active Protocol: Document 08/30/23 08:09 AB (Rec: 08/30/23 11:03 AB [id number]) Out-Patient Physical Therapy Visit Information Visit Information Visit Type Treatment Note Visit Note Access Code [email or web address] Visit Start Time 09:00 Visit Stop Time 09:40 Visit Number 11/17 Number of CARE ADVOCATE Visits 1 PT-OP-B Current Condition Start: 08/08/23 08:07 Freq: Status: Active Protocol: Document 08/15/23 14:31 [facility] (Rec: 08/15/23 15:19 [facility] [id number]) Current Condition History of Current Condition Onset Date Jun 11, 2023 Current Complaints L brachium History of Current Condition Pt fell carrying mail bins that broke her fall and felt a sharp pain at that time. It went away but now when she rolls certain ways, or reach w /her arm. She is seeing Dr. Larios. Per pt, w/MRI there is tendonitis, arthritis present and not recommending surgery. A few weeks ago, she reached to grab a cup that was falling and it was sharp pain. She feels like she is losing upper body strength and feels like she is losing ROM and strength B as she is avoiding motion. denies numbness or tingling. pain is sharp w/movement then has a lasting achiness. 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 Pain has not gotten better and in someways has gotten worse w/ the sharp pains. Treatment Goals Patient/Caregiver Goals be able to use arm fully w/o pain PT-OP-C Subjective Start: 08/08/23 08:07 Freq: Status: Active Protocol: Document 08/30/23 08:09 AB (Rec: 08/30/23 11:03 AB [id number]) OP-PT Subjective Patient Comments Patient Comments Patient reports she had a cortisone shot yesterday. Reports no precautions given post shot. Patient reports she is not in pain at the moment, but placing dishes in the cupboard or moving quickly are painful. AROM 106 deg flex right UE PT-OP-F Manual Assessment Start: 08/08/23 08:07 Freq: Status: Active Protocol: Document 08/15/23 14:31 [facility] (Rec: 08/15/23 15:19 [facility] [id number]) Manual Assessments Soft Tissue Assessment Soft Tissue Mobility Assessment tenderness: L pecs, infra & supraspinatus, biceps, & biceps and supra tendon Joint Mobility Assessment Joint Mobility Assessment 1st rib elevation L PT-OP-J Posture/Palpation/Skin Start: 08/08/23 08:07 Freq: Status: Active Protocol: Document 08/15/23 14:31 [facility] (Rec: 08/15/23 15:19 [facility] [id number]) Posture Evaluation [facility] Postural Classification System [facility] Postural Classifications Posterior/Anterior Elbow Flexion Test 1 Comments Posture Comments L>R humerus ant in glenoid, ant tipped, abd, lat tipped L scap, inc kyphosis, mod fwd head PT-OP-K Range of Motion Start: 08/08/23 08:07 Freq: Status: Active Protocol: Document 08/15/23 14:31 [facility] (Rec: 08/15/23 15:19 [facility] [id number]) Shoulder Goniometric Range of Motion Shoulder Left Passive Testing Position Supine Flexion 112 Extension 46 Abduction 80 External Rotation at 45 degrees 44 Abduction Internal Rotation 46 Comments ir at 45 scap plane ;pain all Right Active Flexion 135 Extension 51 Abduction 162 External Rotation at 0 degrees Abduction 70 Internal Rotation Behind Back (text) t7 Left Active Flexion 81 Extension 31 Abduction 66 External Rotation at 0 degrees Abduction 17 Internal Rotation Behind Back (text) mid sacrum Comments pain PT-OP-L Special Tests Start: 08/08/23 08:07 Freq: Status: Active Protocol: Document 08/15/23 14:31 [facility] (Rec: 08/15/23 15:19 [facility] [id number]) Special Tests Shoulder Special Tests crank Test Results pos biceps loads Test Results pos Gans Test Test Results pain but pain in speeds also Speed's Biceps Test Results pain but pain in obriens also Car Henrik Impingement Test Results neg Neer Impingement Test Results pos Empty Can Test Results neg PT-OP-M Strength Start: 08/08/23 08:07 Freq: Status: Active Protocol: Document 08/15/23 14:31 [facility] (Rec: 08/15/23 15:19 [facility] [id number]) Shoulder Strength Shoulder Manual Muscle Testing Right Flexion 4 Good Extension 5 Normal Abduction (C5) 2- Poor- External Rotation 3+ Fair+ Internal Rotation 3+ Fair+ Comments pain w/IR Left Flexion 3+ Fair+ Extension 3+ Fair+ Abduction (C5) 4 Good External Rotation 4 Good Internal Rotation 4 Good Elbow/Forearm Strength Elbow and Forearm Manual Muscle Testing Right Flexion (C6) 5 Normal Extension (C7) 5 Normal Pronation 5 Normal Supination 5 Normal Left Flexion (C6) 4 Good Extension (C7) 4 Good Pronation 3+ Fair+ Supination 4 Good Comments pain w.flex and sup PT-OP-Q Treatments Start: 08/08/23 08:07 Freq: Status: Active Protocol: Document 08/30/23 08:09 AB (Rec: 08/30/23 11:03 AB [id number]) Therapeutic Exercises Supine Exercises pec stretch on soft 1/2 foam roller Side bilateral Reps/Minutes 3 min Comments Verbal cues to breath from diaphragm flex Supine Exercise Name AAROM with hands clasped Side bilateral Reps/Minutes X10 Comments to 126 deg first trial Sidelying Exercises sidelying shoulder ER AROM Sidelying Exercise Name AROM Side left Reps/Minutes X20 Sitting Exercises row Side bilateral Resistance level 1 light blue band Reps/Minutes 10 Comments Verbal cues to perform in pain free range scap squeeze seated Side bilateral Reps/Minutes 2 X10 Comments Verbal cues and visual cues Manual Therapy Treatment Soft Tissue Mobilization inf Body Location L infraspinatus, levator scap, Rhomboids/mid trap Mobilization Type Cross-Friction,Rolling Intensity/Depth Superficial Body Position Sidelying Comments superficial to moderate, monitored for pain pec Body Location L Mobilization Type Rolling Intensity/Depth Moderate Body Position Supine Joint Mobilizations L scapulothoracic Direction retraction, depression, Grade III Body Position RSidelying Comments shayne for pain Manual Techniques PROM left shoulder ER Body Position Sidelying Reps/Duration X8 Comments monitored for pain Self-Care/Home Management Treatment Activities Self-Care/Home Management Activities pec 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 f PT-OP-T Assessment and Plan Start: 08/08/23 08:07 Freq: Status: Active Protocol: Document 08/30/23 08:09 AB (Rec: 08/30/23 11:03 AB [id number]) Physical Therapy Assessment Goals activity Short Term Goal (STG) Pt will be able to dress w/o inc pain STG Duration 10/08/23 Fpc Goal (LTG) pt will be able to do all work tasks and home tasks w/o accommodation or inc pain in LUE LTG Duration 11/07/23 strength Short Term Goal (STG) Pt will be indep w/HEP STG Duration 10/08/23 Card Cleaner Goal (LTG) Pt will score at least 4+/5 on all LUE MMT and 3/5 EFT in order to show improved stabiltiy to allow her to do her work tasks. LTG Duration 11/07/23 ROM Short Term Goal (STG) Pt will improve flex and abd of L shoulder by at least 10 deg ea. STG Duration 09/21/23 Fpc Goal (LTG) Pt will have full L AROM of L shoulder w/o inc pain in order to allow greater ease w/ADLs LTG Duration 11/07/23 Quick dash Impairment 54.4 Short Term Goal (STG) Pt will improve quick dash score to now greater than 34 to show improved functional ability w/L shoulder. STG Duration 10/08/23 Fpc Goal (LTG) Pt will improve quick dash score to now greater than 4 to show improved functional ability w/L shoulder. LTG Duration 11/07/23 Assessment Summary Assessment AROM left shoulder flexion 122 deg end of session, which should allow Melissa to reach items placed at higher levels in the home. ROM and strength deficits left UE continues to impact function. Physical Therapy Plan Frequency and Duration Frequency of Treatment 2x/Week Duration of treatment (weeks) 12 Plan of Care Start Date 08/15/23 Plan of Care End Date 11/07/23 Next Visit Focus/Plan Next Note Type Treatment Note Next Visit Plan Continue AAROM, tactile cues for scapular mobility and slow progress to strength and AROM as able Manual: STM to pecs, infraspinatus, AC & SC jt mobs , upper thoracic and rib mobs and GH mobs
--- NOTE | 2023-09-03 11:10 | PT.OTN ---
Current Diagnoses Abnormal posture (09/03/23) Weakness (09/03/23) Superior glenoid labrum lesion of left shoulder, subsequent encounter (09/03/23) Strain of unspecified muscle, fascia and tendon at shoulder and upper arm level, left arm, initial encounter (09/03/23) Physical Therapy Treatment Note PT-OP-A Visit Information Start: 08/08/23 08:07 Freq: Status: Active Protocol: Document 09/03/23 08:05 AB (Rec: 09/03/23 11:09 AB [id number]) Out-Patient Physical Therapy Visit Information Visit Information Visit Type Treatment Note Visit Note Access Code [email or web address] Visit Start Time 09:01 Visit Stop Time 09:43 Visit Number 12/18 Number of BRIQUETTE MOLDER Visits 2 PT-OP-B Current Condition Start: 08/08/23 08:07 Freq: Status: Active Protocol: Document 08/15/23 14:31 [facility] (Rec: 08/15/23 15:19 [facility] [id number]) Current Condition History of Current Condition Onset Date Jun 11, 2023 Current Complaints L brachium History of Current Condition Pt fell carrying mail bins that broke her fall and felt a sharp pain at that time. It went away but now when she rolls certain ways, or reach w /her arm. She is seeing Dr. Larios. Per pt, w/MRI there is tendonitis, arthritis present and not recommending surgery. A few weeks ago, she reached to grab a cup that was falling and it was sharp pain. She feels like she is losing upper body strength and feels like she is losing ROM and strength B as she is avoiding motion. denies numbness or tingling. pain is sharp w/movement then has a lasting achiness. 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 Pain has not gotten better and in someways has gotten worse w/ the sharp pains. Treatment Goals Patient/Caregiver Goals be able to use arm fully w/o pain PT-OP-C Subjective Start: 08/08/23 08:07 Freq: Status: Active Protocol: Document 09/03/23 08:05 AB (Rec: 09/03/23 11:09 AB [id number]) OP-PT Subjective Patient Comments Patient Comments Patient reports rolling to her left is catching, not crying out in pain. Patient reports she feels the motion is a little better, but is still restricted left shoulder. Patient reports she did not do the pec stretch on rolled blanket. AROM left shoulder flexion 120 deg start of session. PT-OP-F Manual Assessment Start: 08/08/23 08:07 Freq: Status: Active Protocol: Document 08/15/23 14:31 [facility] (Rec: 08/15/23 15:19 [facility] [id number]) Manual Assessments Soft Tissue Assessment Soft Tissue Mobility Assessment tenderness: L pecs, infra & supraspinatus, biceps, & biceps and supra tendon Joint Mobility Assessment Joint Mobility Assessment 1st rib elevation L PT-OP-J Posture/Palpation/Skin Start: 08/08/23 08:07 Freq: Status: Active Protocol: Document 08/15/23 14:31 [facility] (Rec: 08/15/23 15:19 [facility] [id number]) Posture Evaluation [facility] Postural Classification System [facility] Postural Classifications Posterior/Anterior Elbow Flexion Test 1 Comments Posture Comments L>R humerus ant in glenoid, ant tipped, abd, lat tipped L scap, inc kyphosis, mod fwd head PT-OP-K Range of Motion Start: 08/08/23 08:07 Freq: Status: Active Protocol: Document 08/15/23 14:31 [facility] (Rec: 08/15/23 15:19 [facility] [id number]) Shoulder Goniometric Range of Motion Shoulder Left Passive Testing Position Supine Flexion 112 Extension 46 Abduction 80 External Rotation at 45 degrees 44 Abduction Internal Rotation 46 Comments ir at 45 scap plane ;pain all Right Active Flexion 135 Extension 51 Abduction 162 External Rotation at 0 degrees Abduction 70 Internal Rotation Behind Back (text) t7 Left Active Flexion 81 Extension 31 Abduction 66 External Rotation at 0 degrees Abduction 17 Internal Rotation Behind Back (text) mid sacrum Comments pain PT-OP-L Special Tests Start: 08/08/23 08:07 Freq: Status: Active Protocol: Document 08/15/23 14:31 [facility] (Rec: 08/15/23 15:19 [facility] [id number]) Special Tests Shoulder Special Tests crank Test Results pos biceps loads Test Results pos [place] Test Test Results pain but pain in speeds also Speed's Biceps Test Results pain but pain in obriens also Car Henrik Impingement Test Results neg Neer Impingement Test Results pos Empty Can Test Results neg PT-OP-M Strength Start: 08/08/23 08:07 Freq: Status: Active Protocol: Document 08/15/23 14:31 [facility] (Rec: 08/15/23 15:19 [facility] [id number]) Shoulder Strength Shoulder Manual Muscle Testing Right Flexion 4 Good Extension 5 Normal Abduction (C5) 2- Poor- External Rotation 3+ Fair+ Internal Rotation 3+ Fair+ Comments pain w/IR Left Flexion 3+ Fair+ Extension 3+ Fair+ Abduction (C5) 4 Good External Rotation 4 Good Internal Rotation 4 Good Elbow/Forearm Strength Elbow and Forearm Manual Muscle Testing Right Flexion (C6) 5 Normal Extension (C7) 5 Normal Pronation 5 Normal Supination 5 Normal Left Flexion (C6) 4 Good Extension (C7) 4 Good Pronation 3+ Fair+ Supination 4 Good Comments pain w.flex and sup PT-OP-Q Treatments Start: 08/08/23 08:07 Freq: Status: Active Protocol: Document 09/03/23 08:05 AB (Rec: 09/03/23 11:09 AB [id number]) Therapeutic Exercises Supine Exercises flex Supine Exercise Name AAROM with hands clasped Side bilateral Reps/Minutes X10 10 second hold Comments Verbal cues for 10 second hold to 143 deg flexion Sidelying Exercises shoulder abduction Side left Reps/Minutes X10 Comments assist at scapula open book Side bilateral Reps/Minutes X5 hold for 5 breaths Comments Vc for UE position tactile cues for LE position sidelying shoulder ER AROM Sidelying Exercise Name AROM Side left Reps/Minutes X20 and X 10 Standing Exercises scap squeeze Side bilateral Reps/Minutes X10 Comments Verbal cues row Side bilateral Resistance peach band Reps/Minutes 2X15 Comments Verbal and visual cues, patient Wall slide flexion Side left Reps/Minutes X5 Comments with stepping to wall, slide up, lift off and lower counter stretch Standing Exercise Name HEP reviewed Side bilateral Reps/Minutes 15sec x3 Comments cues for comfortable range Manual Therapy Treatment Soft Tissue Mobilization post cuff/ UT/levator scap Body Location left scapular area Mobilization Type Cross-Friction,Rolling Intensity/Depth Moderate Body Position Sidelying Comments prior to scapular mobilization pec Body Location L Mobilization Type Rolling Intensity/Depth Moderate Body Position Supine Joint Mobilizations AC Joint left AC Direction inferior Grade III Body Position Hooklying Reps/Duration 12 Comments monitored for pain GH Joint L Direction AP and inf Grade IV Reps/Duration 12 Comments monitored for pain L scapulothoracic Direction retraction, depression, Grade III Body Position RSidelying Comments shayne for pain Manual Techniques PROM left shoulder ER Body Position Sidelying Reps/Duration X10 Comments monitored for pain Self-Care/Home Management Treatment Activities Self-Care/Home Management Activities L stretch and open book added to HEP PT-OP-R Modalities Start: 08/08/23 08:07 Freq: Status: Active Protocol: Document 08/23/23 13:49 SP (Rec: 08/23/23 14:33 SP [id number]) Hot Pack/Cold Pack Treatment Cold Pack Location L shoulder Patient Position Sitting Patient Tolerance Good Comments 4 min- feels good, not as sore. f PT-OP-T Assessment and Plan Start: 08/08/23 08:07 Freq: Status: Active Protocol: Document 09/03/23 08:05 AB (Rec: 09/03/23 11:09 AB [id number]) Physical Therapy Assessment Goals activity Short Term Goal (STG) Pt will be able to dress w/o inc pain STG Duration 10/08/23 Prison Goal (LTG) pt will be able to do all work tasks and home tasks w/o accommodation or inc pain in LUE LTG Duration 11/07/23 strength Short Term Goal (STG) Pt will be indep w/HEP STG Duration 10/08/23 Prison Goal (LTG) Pt will score at least 4+/5 on all LUE MMT and 3/5 EFT in order to show improved stabiltiy to allow her to do her work tasks. LTG Duration 11/07/23 ROM Short Term Goal (STG) Pt will improve flex and abd of L shoulder by at least 10 deg ea. STG Duration 09/21/23 Prison Goal (LTG) Pt will have full L AROM of L shoulder w/o inc pain in order to allow greater ease w/ADLs LTG Duration 11/07/23 Quick dash Impairment 54.4 Short Term Goal (STG) Pt will improve quick dash score to now greater than 34 to show improved functional ability w/L shoulder. STG Duration 10/08/23 Ratchet Setter Goal (LTG) Pt will improve quick dash score to now greater than 4 to show improved functional ability w/L shoulder. LTG Duration 11/07/23 Assessment Summary Assessment AROM left shoulder flexion 123 end of session, Melissa reports pain is gone. Physical Therapy Plan Frequency and Duration Frequency of Treatment 2x/Week Duration of treatment (weeks) 12 Plan of Care Start Date 08/15/23 Plan of Care End Date 11/07/23 Next Visit Focus/Plan Next Note Type Treatment Note Next Visit Plan Assess HEP compliance. Continue AAROM/wall slide vs reclined shoulder flexion to HEP, tactile cues for scapular mobility and slow progress to strength and AROM as able Manual: STM to pecs, infraspinatus, AC & SC jt mobs , upper thoracic and rib mobs and GH mobs
--- NOTE | 2023-09-06 09:50 | PT.OTN ---
Current Diagnoses Abnormal posture (09/06/23) Weakness (09/06/23) Superior glenoid labrum lesion of left shoulder, subsequent encounter (09/06/23) Strain of unspecified muscle, fascia and tendon at shoulder and upper arm level, left arm, initial encounter (09/06/23) Physical Therapy Treatment Note PT-OP-A Visit Information Start: 08/08/23 08:07 Freq: Status: Active Protocol: Document 09/06/23 09:06 [facility] (Rec: 09/06/23 09:48 [facility] [id number]) Out-Patient Physical Therapy Visit Information Visit Information Visit Type Treatment Note Visit Note Access Code [email or web address] Visit Start Time 09:06 Visit Stop Time 09:45 Visit Number 01/17 Number of PIPE BLANKS CUT OFF SAW OPERATOR Visits 0 PT-OP-B Current Condition Start: 08/08/23 08:07 Freq: Status: Active Protocol: Document 08/15/23 14:31 [facility] (Rec: 08/15/23 15:19 [facility] [id number]) Current Condition History of Current Condition Onset Date Jun 11, 2023 Current Complaints L brachium History of Current Condition Pt fell carrying mail bins that broke her fall and felt a sharp pain at that time. It went away but now when she rolls certain ways, or reach w /her arm. She is seeing Dr. Larios. Per pt, w/MRI there is tendonitis, arthritis present and not recommending surgery. A few weeks ago, she reached to grab a cup that was falling and it was sharp pain. She feels like she is losing upper body strength and feels like she is losing ROM and strength B as she is avoiding motion. denies numbness or tingling. pain is sharp w/movement then has a lasting achiness. 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 Pain has not gotten better and in someways has gotten worse w/ the sharp pains. Treatment Goals Patient/Caregiver Goals be able to use arm fully w/o pain PT-OP-C Subjective Start: 08/08/23 08:07 Freq: Status: Active Protocol: Document 09/06/23 09:06 [facility] (Rec: 09/06/23 09:48 [facility] [id number]) OP-PT Subjective Patient Comments Patient Comments Pt reports inc pain w/stretch in bed this AM PT-OP-F Manual Assessment Start: 08/08/23 08:07 Freq: Status: Active Protocol: Document 08/15/23 14:31 [facility] (Rec: 08/15/23 15:19 [facility] [id number]) Manual Assessments Soft Tissue Assessment Soft Tissue Mobility Assessment tenderness: L pecs, infra & supraspinatus, biceps, & biceps and supra tendon Joint Mobility Assessment Joint Mobility Assessment 1st rib elevation L PT-OP-J Posture/Palpation/Skin Start: 08/08/23 08:07 Freq: Status: Active Protocol: Document 08/15/23 14:31 [facility] (Rec: 08/15/23 15:19 [facility] [id number]) Posture Evaluation [facility] Postural Classification System [facility] Postural Classifications Posterior/Anterior Elbow Flexion Test 1 Comments Posture Comments L>R humerus ant in glenoid, ant tipped, abd, lat tipped L scap, inc kyphosis, mod fwd head PT-OP-K Range of Motion Start: 08/08/23 08:07 Freq: Status: Active Protocol: Document 08/15/23 14:31 [facility] (Rec: 08/15/23 15:19 [facility] [id number]) Shoulder Goniometric Range of Motion Shoulder Left Passive Testing Position Supine Flexion 112 Extension 46 Abduction 80 External Rotation at 45 degrees 44 Abduction Internal Rotation 46 Comments ir at 45 scap plane ;pain all Right Active Flexion 135 Extension 51 Abduction 162 External Rotation at 0 degrees Abduction 70 Internal Rotation Behind Back (text) t7 Left Active Flexion 81 Extension 31 Abduction 66 External Rotation at 0 degrees Abduction 17 Internal Rotation Behind Back (text) mid sacrum Comments pain PT-OP-L Special Tests Start: 08/08/23 08:07 Freq: Status: Active Protocol: Document 08/15/23 14:31 [facility] (Rec: 08/15/23 15:19 [facility] [id number]) Special Tests Shoulder Special Tests crank Test Results pos biceps loads Test Results pos [place] Test Test Results pain but pain in speeds also Speed's Biceps Test Results pain but pain in obriens also Car Henrik Impingement Test Results neg Neer Impingement Test Results pos Empty Can Test Results neg PT-OP-M Strength Start: 08/08/23 08:07 Freq: Status: Active Protocol: Document 08/15/23 14:31 [facility] (Rec: 08/15/23 15:19 [facility] [id number]) Shoulder Strength Shoulder Manual Muscle Testing Right Flexion 4 Good Extension 5 Normal Abduction (C5) 2- Poor- External Rotation 3+ Fair+ Internal Rotation 3+ Fair+ Comments pain w/IR Left Flexion 3+ Fair+ Extension 3+ Fair+ Abduction (C5) 4 Good External Rotation 4 Good Internal Rotation 4 Good Elbow/Forearm Strength Elbow and Forearm Manual Muscle Testing Right Flexion (C6) 5 Normal Extension (C7) 5 Normal Pronation 5 Normal Supination 5 Normal Left Flexion (C6) 4 Good Extension (C7) 4 Good Pronation 3+ Fair+ Supination 4 Good Comments pain w.flex and sup PT-OP-Q Treatments Start: 08/08/23 08:07 Freq: Status: Active Protocol: Document 09/06/23 09:06 [facility] (Rec: 09/06/23 09:48 [facility] [id number]) Therapeutic Exercises Supine Exercises flex Supine Exercise Name AROM Side bilateral Reps/Minutes 10 Sidelying Exercises shoulder abduction Sidelying Exercise Name comfortable range Side left Reps/Minutes X15 Comments cues at scap Sitting Exercises pulleys Sitting Exercise Name flex, scaption,abd Side left Resistance AAROM Reps/Minutes 15 ea slow controlled Comments cued neutral retraction/ midline CA, less strain in scaption plane Standing Exercises IR Standing Exercise Name 1. AROM 2. tband Side left Equipment Used peach band w/towel Reps/Minutes 15 ea Wall slide flexion Side left Reps/Minutes X8 Comments with stepping to wall, slide up, lift off and lower ext Standing Exercise Name 1. row 2. ext Side bilateral Equipment Used orange band Reps/Minutes 15 Comments stay within painfree/arlene range ER Side left Equipment Used peach band w/towel at side Reps/Minutes 15 Manual Therapy Treatment Soft Tissue Mobilization inf Body Location L lats, teres Mobilization Type Sustained Pressure Comments w/flex Joint Mobilizations GH Joint L Comments post, distraction, lat gapping FM PT-OP-R Modalities Start: 08/08/23 08:07 Freq: Status: Active Protocol: Document 08/23/23 13:49 [facility] (Rec: 08/23/23 14:33 [facility] [id number]) Hot Pack/Cold Pack Treatment Cold Pack Location L shoulder Patient Position Sitting Patient Tolerance Good Comments 4 min- feels good, not as sore. f PT-OP-T Assessment and Plan Start: 08/08/23 08:07 Freq: Status: Active Protocol: Document 09/06/23 09:06 [facility] (Rec: 09/06/23 09:48 [facility] [id number]) Physical Therapy Assessment Goals activity Short Term Goal (STG) Pt will be able to dress w/o inc pain STG Duration 10/08/23 Hardness Tester Goal (LTG) pt will be able to do all work tasks and home tasks w/o accommodation or inc pain in LUE LTG Duration 11/07/23 strength Short Term Goal (STG) Pt will be indep w/HEP STG Duration 10/08/23 Hardness Tester Goal (LTG) Pt will score at least 4+/5 on all LUE MMT and 09/10 EFT in order to show improved stabiltiy to allow her to do her work tasks. LTG Duration 11/07/23 ROM Short Term Goal (STG) Pt will improve flex and abd of L shoulder by at least 10 deg ea. STG Duration 09/21/23 Fpc Goal (LTG) Pt will have full L AROM of L shoulder w/o inc pain in order to allow greater ease w/ADLs LTG Duration 11/07/23 Quick dash Impairment 54.4 Short Term Goal (STG) Pt will improve quick dash score to now greater than 34 to show improved functional ability w/L shoulder. STG Duration 10/08/23 Hardness Tester Goal (LTG) Pt will improve quick dash score to now greater than 4 to show improved functional ability w/L shoulder. LTG Duration 11/07/23 Assessment Summary Assessment Pt able to tolerate inc strengthening exercises without inc pain but does require max cues for form and to focus on exercise. Improved flex after manual care. Physical Therapy Plan Frequency and Duration Frequency of Treatment 2x/Week Duration of treatment (weeks) 12 Plan of Care Start Date 08/15/23 Plan of Care End Date 11/07/23 Next Visit Focus/Plan Next Note Type Treatment Note Next Visit Plan cont to advance strengthening and ROM to full manaul to work to improve shoulde rmobility
--- NOTE | 2023-09-12 11:21 | PT.OTN ---
Current Diagnoses Abnormal posture (09/12/23) Weakness (09/12/23) Superior glenoid labrum lesion of left shoulder, subsequent encounter (09/12/23) Strain of unspecified muscle, fascia and tendon at shoulder and upper arm level, left arm, initial encounter (09/12/23) Physical Therapy Treatment Note PT-OP-A Visit Information Start: 08/08/23 08:07 Freq: Status: Active Protocol: Document 09/12/23 10:40 [facility] (Rec: 09/12/23 11:20 [facility] [id number]) Out-Patient Physical Therapy Visit Information Visit Information Visit Type Treatment Note Visit Note Access Code [email or web address] Visit Start Time 10:35 Visit Stop Time 11:20 Visit Number 02/17 Number of ECONOMICS LECTURER Visits 0 PT-OP-B Current Condition Start: 08/08/23 08:07 Freq: Status: Active Protocol: Document 08/15/23 14:31 [facility] (Rec: 08/15/23 15:19 [facility] [id number]) Current Condition History of Current Condition Onset Date Jun 11, 2023 Current Complaints L brachium History of Current Condition Pt fell carrying mail bins that broke her fall and felt a sharp pain at that time. It went away but now when she rolls certain ways, or reach w /her arm. She is seeing Dr. Larios. Per pt, w/MRI there is tendonitis, arthritis present and not recommending surgery. A few weeks ago, she reached to grab a cup that was falling and it was sharp pain. She feels like she is losing upper body strength and feels like she is losing ROM and strength B as she is avoiding motion. denies numbness or tingling. pain is sharp w/movement then has a lasting achiness. 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 Pain has not gotten better and in someways has gotten worse w/ the sharp pains. Treatment Goals Patient/Caregiver Goals be able to use arm fully w/o pain PT-OP-C Subjective Start: 08/08/23 08:07 Freq: Status: Active Protocol: Document 09/12/23 10:40 [facility] (Rec: 09/12/23 11:20 [facility] [id number]) OP-PT Subjective Patient Comments Patient Comments pt feels like nory can move her shoulder more Patient Reported Progress Improving PT-OP-F Manual Assessment Start: 08/08/23 08:07 Freq: Status: Active Protocol: Document 08/15/23 14:31 [facility] (Rec: 08/15/23 15:19 [facility] [id number]) Manual Assessments Soft Tissue Assessment Soft Tissue Mobility Assessment tenderness: L pecs, infra & supraspinatus, biceps, & biceps and supra tendon Joint Mobility Assessment Joint Mobility Assessment 1st rib elevation L PT-OP-J Posture/Palpation/Skin Start: 08/08/23 08:07 Freq: Status: Active Protocol: Document 08/15/23 14:31 [facility] (Rec: 08/15/23 15:19 [facility] [id number]) Posture Evaluation [place] Postural Classification System [facility] Postural Classifications Posterior/Anterior Elbow Flexion Test 1 Comments Posture Comments L>R humerus ant in glenoid, ant tipped, abd, lat tipped L scap, inc kyphosis, mod fwd head PT-OP-K Range of Motion Start: 08/08/23 08:07 Freq: Status: Active Protocol: Document 08/15/23 14:31 [facility] (Rec: 08/15/23 15:19 [facility] [id number]) Shoulder Goniometric Range of Motion Shoulder Left Passive Testing Position Supine Flexion 112 Extension 46 Abduction 80 External Rotation at 45 degrees 44 Abduction Internal Rotation 46 Comments ir at 45 scap plane ;pain all Right Active Flexion 135 Extension 51 Abduction 162 External Rotation at 0 degrees Abduction 70 Internal Rotation Behind Back (text) t7 Left Active Flexion 81 Extension 31 Abduction 66 External Rotation at 0 degrees Abduction 17 Internal Rotation Behind Back (text) mid sacrum Comments pain PT-OP-L Special Tests Start: 08/08/23 08:07 Freq: Status: Active Protocol: Document 08/15/23 14:31 [facility] (Rec: 08/15/23 15:19 [facility] [id number]) Special Tests Shoulder Special Tests crank Test Results pos biceps loads Test Results pos [place] Test Test Results pain but pain in speeds also Speed's Biceps Test Results pain but pain in obriens also Car Henrik Impingement Test Results neg Neer Impingement Test Results pos Empty Can Test Results neg PT-OP-M Strength Start: 08/08/23 08:07 Freq: Status: Active Protocol: Document 08/15/23 14:31 [facility] (Rec: 08/15/23 15:19 [facility] [id number]) Shoulder Strength Shoulder Manual Muscle Testing Right Flexion 4 Good Extension 5 Normal Abduction (C5) 2- Poor- External Rotation 3+ Fair+ Internal Rotation 3+ Fair+ Comments pain w/IR Left Flexion 3+ Fair+ Extension 3+ Fair+ Abduction (C5) 4 Good External Rotation 4 Good Internal Rotation 4 Good Elbow/Forearm Strength Elbow and Forearm Manual Muscle Testing Right Flexion (C6) 5 Normal Extension (C7) 5 Normal Pronation 5 Normal Supination 5 Normal Left Flexion (C6) 4 Good Extension (C7) 4 Good Pronation 3+ Fair+ Supination 4 Good Comments pain w.flex and sup PT-OP-Q Treatments Start: 08/08/23 08:07 Freq: Status: Active Protocol: Document 09/12/23 10:40 [facility] (Rec: 09/12/23 11:20 [facility] [id number]) Therapeutic Exercises Supine Exercises flex Supine Exercise Name AROM Side bilateral Reps/Minutes 10 Sidelying Exercises shoulder abduction Sidelying Exercise Name comfortable range Side left Reps/Minutes X15 Comments cues at scap open book Side left Reps/Minutes 10 Comments cues for trunk motion Sitting Exercises pulleys Sitting Exercise Name flex, scaption,abd Side left Resistance AAROM Reps/Minutes 15 ea slow controlled Comments cued neutral retraction/ midline CA, less strain in scaption plane Standing Exercises IR Standing Exercise Name tband Side left Equipment Used peach band w/towel Reps/Minutes 15 ea Wall slide flexion Side left Reps/Minutes X8 Comments with stepping to wall, slide up, lift off and lower ext Standing Exercise Name 1. row 2. ext Side bilateral Equipment Used orange band Reps/Minutes 15 Comments stay within painfree/arlene range ER Side left Equipment Used peach band w/towel at side Reps/Minutes 15 Manual Therapy Treatment Soft Tissue Mobilization inf Body Location L lats, teres Mobilization Type Sustained Pressure Comments w/flex pec Body Location L Mobilization Type Rolling,Sustained Pressure Intensity/Depth Moderate Body Position Supine Comments w/ER Joint Mobilizations AC Joint L clavicle ant FM GH Joint L Comments post, distraction, lat gapping , inf glides FM PT-OP-R Modalities Start: 08/08/23 08:07 Freq: Status: Active Protocol: Document 09/12/23 10:40 [facility] (Rec: 09/12/23 11:20 [facility] [id number]) Hot Pack/Cold Pack Treatment Cold Pack Location L shoulder Patient Position Sitting Patient Tolerance Good Comments 4 min- feels good, not as sore. f PT-OP-T Assessment and Plan Start: 08/08/23 08:07 Freq: Status: Active Protocol: Document 09/12/23 10:40 [facility] (Rec: 09/12/23 11:20 [facility] [id number]) Physical Therapy Assessment Goals activity Short Term Goal (STG) Pt will be able to dress w/o inc pain STG Duration 10/08/23 Detention Goal (LTG) pt will be able to do all work tasks and home tasks w/o accommodation or inc pain in LUE LTG Duration 11/07/23 strength Short Term Goal (STG) Pt will be indep w/HEP STG Duration 10/08/23 Equal Opportunity Director Goal (LTG) Pt will score at least 4+/5 on all LUE MMT and 3/5 EFT in order to show improved stabiltiy to allow her to do her work tasks. LTG Duration 11/07/23 ROM Short Term Goal (STG) Pt will improve flex and abd of L shoulder by at least 10 deg ea. STG Duration 09/21/23 Equal Opportunity Director Goal (LTG) Pt will have full L AROM of L shoulder w/o inc pain in order to allow greater ease w/ADLs LTG Duration 11/07/23 Quick dash Impairment 54.4 Short Term Goal (STG) Pt will improve quick dash score to now greater than 34 to show improved functional ability w/L shoulder. STG Duration 10/08/23 Equal Opportunity Director Goal (LTG) Pt will improve quick dash score to now greater than 4 to show improved functional ability w/L shoulder. LTG Duration 11/07/23 Assessment Summary Assessment Pt required full review w/HEP today as she lost the papers. She improved w/form w/cues though and is showing improved ROM tolerance Physical Therapy Plan Frequency and Duration Frequency of Treatment 2x/Week Duration of treatment (weeks) 12 Plan of Care Start Date 08/15/23 Plan of Care End Date 11/07/23 Next Visit Focus/Plan Next Note Type Treatment Note Next Visit Plan cont to advance strengthening and ROM to full manaul to work to improve shoulde rmobility
--- NOTE | 2023-09-14 09:05 | PT.OTN ---
Current Diagnoses Abnormal posture (09/14/23) Weakness (09/14/23) Superior glenoid labrum lesion of left shoulder, subsequent encounter (09/14/23) Strain of unspecified muscle, fascia and tendon at shoulder and upper arm level, left arm, initial encounter (09/14/23) Physical Therapy Treatment Note PT-OP-A Visit Information Start: 08/08/23 08:07 Freq: Status: Active Protocol: Document 09/14/23 08:15 SP (Rec: 09/14/23 09:09 SP [id number]) Out-Patient Physical Therapy Visit Information Visit Information Visit Type Treatment Note Visit Start Time 08:15 Visit Stop Time 09:05 Visit Number 03/20 Number of GARAGE DOOR INSTALLER Visits 1 PT-OP-B Current Condition Start: 08/08/23 08:07 Freq: Status: Active Protocol: Document 08/15/23 14:31 [facility] (Rec: 08/15/23 15:19 [facility] [id number]) Current Condition History of Current Condition Onset Date Jun 11, 2023 Current Complaints L brachium History of Current Condition Pt fell carrying mail bins that broke her fall and felt a sharp pain at that time. It went away but now when she rolls certain ways, or reach w /her arm. She is seeing Dr. Larios. Per pt, w/MRI there is tendonitis, arthritis present and not recommending surgery. A few weeks ago, she reached to grab a cup that was falling and it was sharp pain. She feels like she is losing upper body strength and feels like she is losing ROM and strength B as she is avoiding motion. denies numbness or tingling. pain is sharp w/movement then has a lasting achiness. 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 Pain has not gotten better and in someways has gotten worse w/ the sharp pains. Treatment Goals Patient/Caregiver Goals be able to use arm fully w/o pain PT-OP-C Subjective Start: 08/08/23 08:07 Freq: Status: Active Protocol: Document 09/14/23 08:15 SP (Rec: 09/14/23 09:09 SP [id number]) OP-PT Subjective Patient Comments Patient Comments Pt reports felt better after last tx. She can reach front for a jar not that bad now. She forgot to do exercises yesterday. PT-OP-F Manual Assessment Start: 08/08/23 08:07 Freq: Status: Active Protocol: Document 08/15/23 14:31 [facility] (Rec: 08/15/23 15:19 [facility] [id number]) Manual Assessments Soft Tissue Assessment Soft Tissue Mobility Assessment tenderness: L pecs, infra & supraspinatus, biceps, & biceps and supra tendon Joint Mobility Assessment Joint Mobility Assessment 1st rib elevation L PT-OP-J Posture/Palpation/Skin Start: 08/08/23 08:07 Freq: Status: Active Protocol: Document 08/15/23 14:31 [facility] (Rec: 08/15/23 15:19 [facility] [id number]) Posture Evaluation [facility] Postural Classification System [facility] Postural Classifications Posterior/Anterior Elbow Flexion Test 1 Comments Posture Comments L>R humerus ant in glenoid, ant tipped, abd, lat tipped L scap, inc kyphosis, mod fwd head PT-OP-K Range of Motion Start: 08/08/23 08:07 Freq: Status: Active Protocol: Document 08/15/23 14:31 [facility] (Rec: 08/15/23 15:19 [facility] [id number]) Shoulder Goniometric Range of Motion Shoulder Left Passive Testing Position Supine Flexion 112 Extension 46 Abduction 80 External Rotation at 45 degrees 44 Abduction Internal Rotation 46 Comments ir at 45 scap plane ;pain all Right Active Flexion 135 Extension 51 Abduction 162 External Rotation at 0 degrees Abduction 70 Internal Rotation Behind Back (text) t7 Left Active Flexion 81 Extension 31 Abduction 66 External Rotation at 0 degrees Abduction 17 Internal Rotation Behind Back (text) mid sacrum Comments pain PT-OP-L Special Tests Start: 08/08/23 08:07 Freq: Status: Active Protocol: Document 08/15/23 14:31 [facility] (Rec: 08/15/23 15:19 [facility] [id number]) Special Tests Shoulder Special Tests crank Test Results pos biceps loads Test Results pos [place] Test Test Results pain but pain in speeds also Speed's Biceps Test Results pain but pain in obriens also Car Henrik Impingement Test Results neg Neer Impingement Test Results pos Empty Can Test Results neg PT-OP-M Strength Start: 08/08/23 08:07 Freq: Status: Active Protocol: Document 08/15/23 14:31 [facility] (Rec: 08/15/23 15:19 [facility] [id number]) Shoulder Strength Shoulder Manual Muscle Testing Right Flexion 4 Good Extension 5 Normal Abduction (C5) 2- Poor- External Rotation 3+ Fair+ Internal Rotation 3+ Fair+ Comments pain w/IR Left Flexion 3+ Fair+ Extension 3+ Fair+ Abduction (C5) 4 Good External Rotation 4 Good Internal Rotation 4 Good Elbow/Forearm Strength Elbow and Forearm Manual Muscle Testing Right Flexion (C6) 5 Normal Extension (C7) 5 Normal Pronation 5 Normal Supination 5 Normal Left Flexion (C6) 4 Good Extension (C7) 4 Good Pronation 3+ Fair+ Supination 4 Good Comments pain w.flex and sup PT-OP-Q Treatments Start: 08/08/23 08:07 Freq: Status: Active Protocol: Document 09/14/23 08:15 SP (Rec: 09/14/23 09:09 SP [id number]) Therapeutic Exercises Sidelying Exercises shoulder abduction Sidelying Exercise Name HABD Side left Reps/Minutes X15 Comments cues at scap ABD, FF Sidelying Exercise Name FF and ABD approx 160 deg each Side left Resistance AROM Reps/Minutes 8 Comments cues initially for motion; attempted abd but painful at 40 deg so stopped Sitting Exercises eccentric FF & scaption Sitting Exercise Name trialed good response Side left Resistance TB #2 OTB Equipment Used mesh chair Reps/Minutes x8 each Comments cued slow slight SP into AAROM pnfree pulleys Sitting Exercise Name flex, scaption,abd Side left Resistance AAROM Reps/Minutes 20 ea slow controlled Comments cued neutral retraction/ midline CA, less strain in scaption plane Standing Exercises aROM Standing Exercise Name approx 160 deg FF and ABD Side left Reps/Minutes 1 rep Comments assess end tx IR Standing Exercise Name tband Side left Equipment Used peach band w/towel Reps/Minutes 15 ea ext Standing Exercise Name 1. row 2. ext Side bilateral Equipment Used [place] TB #2> 3 (gave aqua) Reps/Minutes 15 each Comments stay within painfree/arlene range Manual Therapy Treatment Soft Tissue Mobilization post cuff/ UT/levator scap Body Location L UT, LS, pec, Teres, Infra, Rhomboid, Mobilization Type Cross-Friction,Rolling Intensity/Depth Moderate Body Position Sidelying Comments prior to scapular mobilization Joint Mobilizations AC Joint L clavicle ant FM: FF Direction AP Grade II Body Position Hooklying GH Joint L Body Position R SL Comments post and inferior glides, distraction, inf glides /c ed FM SerAnt with ABD, FF, HABD Self-Care/Home Management Treatment Education Other Education Ed Anatomy and use skeleton for support on scapulothoracic and GH mechanics and postural awareness for improvement in ROM post manual and HEP. PT-OP-R Modalities Start: 08/08/23 08:07 Freq: Status: Active Protocol: Document 09/12/23 10:40 LR (Rec: 09/12/23 11:20 [facility] [id number]) Hot Pack/Cold Pack Treatment Cold Pack Location L shoulder Patient Position Sitting Patient Tolerance Good Comments 4 min- feels good, not as sore. f PT-OP-T Assessment and Plan Start: 08/08/23 08:07 Freq: Status: Active Protocol: Document 09/14/23 08:15 SP (Rec: 09/14/23 09:09 SP [id number]) Physical Therapy Assessment Goals activity Short Term Goal (STG) Pt will be able to dress w/o inc pain STG Duration 10/08/23 Cementer Machine Applicator Goal (LTG) pt will be able to do all work tasks and home tasks w/o accommodation or inc pain in LUE LTG Duration 11/07/23 strength Short Term Goal (STG) Pt will be indep w/HEP STG Duration 10/08/23 Senior Care Goal (LTG) Pt will score at least 4+/5 on all LUE MMT and / EFT in order to show improved stabiltiy to allow her to do her work tasks. LTG Duration 11/07/23 ROM Short Term Goal (STG) Pt will improve flex and abd of L shoulder by at least 10 deg ea. STG Duration 09/21/23 Cementer Machine Applicator Goal (LTG) Pt will have full L AROM of L shoulder w/o inc pain in order to allow greater ease w/ADLs LTG Duration 11/07/23 Quick dash Impairment 54.4 Short Term Goal (STG) Pt will improve quick dash score to now greater than 34 to show improved functional ability w/L shoulder. STG Duration 10/08/23 Senior Care Goal (LTG) Pt will improve quick dash score to now greater than 4 to show improved functional ability w/L shoulder. LTG Duration 11/07/23 Assessment Summary Assessment Pt responded well to manual with improvements in AAROM> AROM L ABD and HABD increase ROM, tactile cues then improved self corrections scapular ROM and less shld discomfort. Pt still tends to guard during pulleys but cues for head/ no UT recruitment and hand/arm postioning into humeral ER. Pt was able to increase AAROM trialed eccentric FF and scaption for carry over home (unable to find HO image for review). Will check again next tx for support home into more active ROM OH. She was able to lift FF and ABD approx 160deg in standing before leaving. Physical Therapy Plan Frequency and Duration Frequency of Treatment 2x/Week Duration of treatment (weeks) 12 Plan of Care Start Date 08/15/23 Plan of Care End Date 11/07/23 Therapeutic Interventions Therapeutic Interventions Gait Training,Home Exercise Program,Joint Mobilizations, Manual Therapy,Neuromuscular Re-education,Orthotic/ Prosthetic Management,Patient/ Caregiver Education,Self-Care/ Home Management,Soft Tissue Mobilization,Taping, Therapeutic Activities, Therapeutic Exercises Modalities Cold Pack/Ice Massage,Electric Stimulation,Hot Packs, Infrared Therapy,Iontophoresis ,Traction- Mechanical, Ultrasound Other Therapeutic Interventions dexamethasone ionto Next Visit Focus/Plan Next Note Type Treatment Note Next Visit Plan NExt tx: review side L AROM, eccentric FF& scaption /c TB give HO. POC: cont to advance strengthening and ROM to full manual to work to improve shoulder mobility
--- NOTE | 2023-09-17 10:37 | PT.OTN ---
Current Diagnoses Abnormal posture (09/17/23) Weakness (09/17/23) Superior glenoid labrum lesion of left shoulder, subsequent encounter (09/17/23) Strain of unspecified muscle, fascia and tendon at shoulder and upper arm level, left arm, initial encounter (09/17/23) Physical Therapy Treatment Note PT-OP-A Visit Information Start: 08/08/23 08:07 Freq: Status: Active Protocol: Document 09/17/23 09:48 [facility] (Rec: 09/17/23 10:37 [facility] [id number]) Out-Patient Physical Therapy Visit Information Visit Information Visit Type Progress Note Visit Start Time 09:49 Visit Stop Time 10:30 Visit Number 04/19 Number of PRODUCTION CONTROL TECHNOLOGIST Visits 0 PT-OP-B Current Condition Start: 08/08/23 08:07 Freq: Status: Active Protocol: Document 08/15/23 14:31 [facility] (Rec: 08/15/23 15:19 [facility] [id number]) Current Condition History of Current Condition Onset Date Jun 11, 2023 Current Complaints L brachium History of Current Condition Pt fell carrying mail bins that broke her fall and felt a sharp pain at that time. It went away but now when she rolls certain ways, or reach w /her arm. She is seeing Dr. Larios. Per pt, w/MRI there is tendonitis, arthritis present and not recommending surgery. A few weeks ago, she reached to grab a cup that was falling and it was sharp pain. She feels like she is losing upper body strength and feels like she is losing ROM and strength B as she is avoiding motion. denies numbness or tingling. pain is sharp w/movement then has a lasting achiness. 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 Pain has not gotten better and in someways has gotten worse w/ the sharp pains. Treatment Goals Patient/Caregiver Goals be able to use arm fully w/o pain PT-OP-C Subjective Start: 08/08/23 08:07 Freq: Status: Active Protocol: Document 09/17/23 09:48 [facility] (Rec: 09/17/23 10:37 [facility] [id number]) OP-PT Subjective Patient Comments Patient Comments Pt reports some ant shoulder discomfort this weekend Patient Reported Progress Improving Patient Questionnaires Quick Dash- Upper Extremity Quick Dash UE Score 56.8 Quick Dash- Work and Sports Modules Quick Dash W&S Score W-31.25 PT-OP-F Manual Assessment Start: 08/08/23 08:07 Freq: Status: Active Protocol: Document 08/15/23 14:31 [facility] (Rec: 08/15/23 15:19 [facility] [id number]) Manual Assessments Soft Tissue Assessment Soft Tissue Mobility Assessment tenderness: L pecs, infra & supraspinatus, biceps, & biceps and supra tendon Joint Mobility Assessment Joint Mobility Assessment 1st rib elevation L PT-OP-J Posture/Palpation/Skin Start: 08/08/23 08:07 Freq: Status: Active Protocol: Document 08/15/23 14:31 [facility] (Rec: 08/15/23 15:19 [facility] [id number]) Posture Evaluation [facility] Postural Classification System [facility] Postural Classifications Posterior/Anterior Elbow Flexion Test 1 Comments Posture Comments L>R humerus ant in glenoid, ant tipped, abd, lat tipped L scap, inc kyphosis, mod fwd head PT-OP-K Range of Motion Start: 08/08/23 08:07 Freq: Status: Active Protocol: Document 09/17/23 09:48 [facility] (Rec: 09/17/23 10:37 [facility] [id number]) Shoulder Goniometric Range of Motion Shoulder Left Passive Testing Position Supine Flexion 129 Abduction 100 External Rotation at 45 degrees 63 Abduction Internal Rotation 59 Comments ir at 45 scap plane ;pain all Left Active Flexion 114 Extension 50 Abduction 72 External Rotation at 0 degrees Abduction 48 Internal Rotation Behind Back (text) S1 Comments pain PT-OP-L Special Tests Start: 08/08/23 08:07 Freq: Status: Active Protocol: Document 08/15/23 14:31 [facility] (Rec: 08/15/23 15:19 [facility] [id number]) Special Tests Shoulder Special Tests crank Test Results pos biceps loads Test Results pos [place] Test Test Results pain but pain in speeds also Speed's Biceps Test Results pain but pain in obriens also Car Henrik Impingement Test Results neg Neer Impingement Test Results pos Empty Can Test Results neg PT-OP-M Strength Start: 08/08/23 08:07 Freq: Status: Active Protocol: Document 09/17/23 09:48 [facility] (Rec: 09/17/23 10:37 [facility] [id number]) Shoulder Strength Shoulder Manual Muscle Testing Right Flexion 4+ Good+ Extension 5 Normal Abduction (C5) 4+ Good+ External Rotation 4+ Good+ Internal Rotation 4+ Good+ Comments pain w/IR Left Flexion 4- Good- Extension 4 Good Abduction (C5) 2+ Poor+ External Rotation 4- Good- Internal Rotation 4 Good PT-OP-Q Treatments Start: 08/08/23 08:07 Freq: Status: Active Protocol: Document 09/17/23 09:48 [facility] (Rec: 09/17/23 10:37 [facility] [id number]) Therapeutic Exercises Supine Exercises serratus punch Side bilateral Reps/Minutes 15 Sidelying Exercises shoulder abduction Side left Reps/Minutes 15 Sitting Exercises pulleys Sitting Exercise Name flex, scaption,abd Side left Resistance AAROM Reps/Minutes 20 ea slow controlled Comments cued neutral retraction/ midline CA, less strain in scaption plane Standing Exercises aROM Standing Exercise Name all ROM Side left IR Standing Exercise Name tband Side left Equipment Used orange band w/towel Reps/Minutes 12 ea ext Standing Exercise Name 1. row 2. ext Side bilateral Equipment Used [place] band Reps/Minutes 15 each ER Side left Equipment Used orange band w/towel at side Reps/Minutes 12 Manual Therapy Treatment Soft Tissue Mobilization pec Body Location L Mobilization Type Rolling,Sustained Pressure Intensity/Depth Moderate Body Position Supine Comments w/ER Joint Mobilizations ribs Comments rib 2 and 3 L PA FM ; caudal 1st rib FM thoracic Body Position Supine Comments PA w/chin tucks T1-2 SC Comments 1. distraction L FM 2. ant FM AC Joint L clavicle ant fM GH Comments L distraction & post PT-OP-R Modalities Start: 08/08/23 08:07 Freq: Status: Active Protocol: Document 09/12/23 10:40 [facility] (Rec: 09/12/23 11:20 [facility] [id number]) Hot Pack/Cold Pack Treatment Cold Pack Location L shoulder Patient Position Sitting Patient Tolerance Good Comments 4 min- feels good, not as sore. f PT-OP-T Assessment and Plan Start: 08/08/23 08:07 Freq: Status: Active Protocol: Document 09/17/23 09:48 [facility] (Rec: 09/17/23 10:37 [facility] [id number]) Physical Therapy Assessment Goals activity Short Term Goal (STG) Pt will be able to dress w/o inc pain 09/16-pain about every other day -putting shirt/jacket on/ off STG Duration 10/08/23 Prison Goal (LTG) pt will be able to do all work tasks and home tasks w/o accommodation or inc pain in LUE 09/16-uses RUE to reach out- avoid LUE still; pain w/ chores LTG Duration 11/07/23 strength Short Term Goal (STG) Pt will be indep w/HEP STG Duration achieved-advancing as able Prison Goal (LTG) Pt will score at least 4+/5 on all LUE MMT and 09/10 EFT in order to show improved stabiltiy to allow her to do her work tasks. 09/16-improved LTG Duration 11/07/23 ROM Short Term Goal (STG) Pt will improve flex and abd of L shoulder by at least 10 deg ea. STG Duration achieved 09/16 Prison Goal (LTG) Pt will have full L AROM of L shoulder w/o inc pain in order to allow greater ease w/ADLs LTG Duration 11/07/23 Quick dash Impairment 54.4 Short Term Goal (STG) Pt will improve quick dash score to now greater than 34 to show improved functional ability w/L shoulder. 09/16-no change STG Duration 10/08/23 Prison Goal (LTG) Pt will improve quick dash score to now greater than 4 to show improved functional ability w/L shoulder. LTG Duration 11/07/23 Assessment Summary Assessment Pt is showing much improved PROM and AROM along w/strength but is still limited by pain. She is encouraged to make sure [facility] is doing her strength exercises at home to keep up mobility. She does still have tightnes and jt limits in shoulder complex L and thoracic that limit her ability to do overhead motion. Cont PT to improve this to make work and home life easier w/less pain. Physical Therapy Plan Frequency and Duration Frequency of Treatment 2x/Week Duration of treatment (weeks) 12 Plan of Care Start Date 08/15/23 Plan of Care End Date 11/07/23 Therapeutic Interventions Therapeutic Interventions Gait Training,Home Exercise Program,Joint Mobilizations, Manual Therapy,Neuromuscular Re-education,Orthotic/ Prosthetic Management,Patient/ Caregiver Education,Self-Care/ Home Management,Soft Tissue Mobilization,Taping, Therapeutic Activities, Therapeutic Exercises Modalities Cold Pack/Ice Massage,Electric Stimulation,Hot Packs, Infrared Therapy,Iontophoresis ,Traction- Mechanical, Ultrasound Other Therapeutic Interventions dexamethasone ionto Next Visit Focus/Plan Next Note Type Treatment Note Next Visit Plan NExt tx: review eccentric FF& scaption /c TB give HO if does well w/form POC: cont to advance strengthening and ROM to full manual to work to improve shoulder mobility
--- NOTE | 2023-09-21 13:44 | PT.OTN ---
Current Diagnoses Abnormal posture (09/21/23) Weakness (09/21/23) Superior glenoid labrum lesion of left shoulder, subsequent encounter (09/21/23) Strain of unspecified muscle, fascia and tendon at shoulder and upper arm level, left arm, initial encounter (09/21/23) Physical Therapy Treatment Note PT-OP-A Visit Information Start: 08/08/23 08:07 Freq: Status: Active Protocol: Document 09/21/23 13:01 SP (Rec: 09/21/23 13:47 SP [id number]) Out-Patient Physical Therapy Visit Information Visit Information Visit Type Treatment Note Visit Start Time 13:01 Visit Stop Time 13:44 Visit Number 40 Number of IRONER HAND Visits 1 PT-OP-B Current Condition Start: 08/08/23 08:07 Freq: Status: Active Protocol: Document 08/15/23 14:31 [facility] (Rec: 08/15/23 15:19 [facility] [id number]) Current Condition History of Current Condition Onset Date Jun 11, 2023 Current Complaints L brachium History of Current Condition Pt fell carrying mail bins that broke her fall and felt a sharp pain at that time. It went away but now when she rolls certain ways, or reach w /her arm. She is seeing Dr. Larios. Per pt, w/MRI there is tendonitis, arthritis present and not recommending surgery. A few weeks ago, she reached to grab a cup that was falling and it was sharp pain. She feels like she is losing upper body strength and feels like she is losing ROM and strength B as she is avoiding motion. denies numbness or tingling. pain is sharp w/movement then has a lasting achiness. 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 Pain has not gotten better and in someways has gotten worse w/ the sharp pains. Treatment Goals Patient/Caregiver Goals be able to use arm fully w/o pain PT-OP-C Subjective Start: 08/08/23 08:07 Freq: Status: Active Protocol: Document 09/21/23 13:01 SP (Rec: 09/21/23 13:47 SP [id number]) OP-PT Subjective Patient Comments Patient Comments Pt reports was pretty sore after last tx, assisting her into further range. She was showing her sister her improved AROM L shld front closer to face&head and out to side and it grabbed, thinks did it to quick, demonstrated palm facing floor . PT-OP-F Manual Assessment Start: 08/08/23 08:07 Freq: Status: Active Protocol: Document 08/15/23 14:31 [facility] (Rec: 08/15/23 15:19 [facility] [id number]) Manual Assessments Soft Tissue Assessment Soft Tissue Mobility Assessment tenderness: L pecs, infra & supraspinatus, biceps, & biceps and supra tendon Joint Mobility Assessment Joint Mobility Assessment 1st rib elevation L PT-OP-J Posture/Palpation/Skin Start: 08/08/23 08:07 Freq: Status: Active Protocol: Document 08/15/23 14:31 [facility] (Rec: 08/15/23 15:19 [facility] [id number]) Posture Evaluation [facility] Postural Classification System [facility] Postural Classifications Posterior/Anterior Elbow Flexion Test 1 Comments Posture Comments L>R humerus ant in glenoid, ant tipped, abd, lat tipped L scap, inc kyphosis, mod fwd head PT-OP-K Range of Motion Start: 08/08/23 08:07 Freq: Status: Active Protocol: Document 09/17/23 09:48 [facility] (Rec: 09/17/23 10:37 [facility] [id number]) Shoulder Goniometric Range of Motion Shoulder Left Passive Testing Position Supine Flexion 129 Abduction 100 External Rotation at 45 degrees 63 Abduction Internal Rotation 59 Comments ir at 45 scap plane ;pain all Left Active Flexion 114 Extension 50 Abduction 72 External Rotation at 0 degrees Abduction 48 Internal Rotation Behind Back (text) S1 Comments pain PT-OP-L Special Tests Start: 08/08/23 08:07 Freq: Status: Active Protocol: Document 08/15/23 14:31 [facility] (Rec: 08/15/23 15:19 [facility] [id number]) Special Tests Shoulder Special Tests crank Test Results pos biceps loads Test Results pos [place] Test Test Results pain but pain in speeds also Speed's Biceps Test Results pain but pain in obriens also Car Henrik Impingement Test Results neg Neer Impingement Test Results pos Empty Can Test Results neg PT-OP-M Strength Start: 08/08/23 08:07 Freq: Status: Active Protocol: Document 09/17/23 09:48 [facility] (Rec: 09/17/23 10:37 [facility] [id number]) Shoulder Strength Shoulder Manual Muscle Testing Right Flexion 4+ Good+ Extension 5 Normal Abduction (C5) 4+ Good+ External Rotation 4+ Good+ Internal Rotation 4+ Good+ Comments pain w/IR Left Flexion 4- Good- Extension 4 Good Abduction (C5) 2+ Poor+ External Rotation 4- Good- Internal Rotation 4 Good PT-OP-Q Treatments Start: 08/08/23 08:07 Freq: Status: Active Protocol: Document 09/21/23 13:01 SP (Rec: 09/21/23 13:47 SP [id number]) Therapeutic Exercises Supine Exercises serratus punch Side bilateral Equipment Used small noodle in hands Reps/Minutes 12, 15 Comments target to press to flex Supine Exercise Name FF, ABD /c long axis humeral ER Side bilateral Resistance PROM>AAROM Reps/Minutes 10 Sidelying Exercises shoulder abduction Sidelying Exercise Name 124 deg Side left Resistance AAROM 10%A Reps/Minutes 15 Comments manual assist humeral and scapular inferior glide open book Side left Reps/Minutes 10 Comments cues for trunk motion, slight humeral ER-pnfree range ABD, FF Sidelying Exercise Name FF approx 136 * AROM, AAROM 156* Side left Resistance AAROM Reps/Minutes 8 Comments cues initially for motion; attempted abd but painful at 40 deg so stopped Standing Exercises Wall slide flexion Standing Exercise Name FF ( doorframe) and abd ( facing wall) Side left Reps/Minutes 2 reps each 10 SH Comments with stepping to wall, slide up, slowly lower pendulum Standing Exercise Name fwd/back,side, CW/CCW Side left Resistance PROM Equipment Used shuttle balance Reps/Minutes 1 min Comments ed /c performance wt shift trunk ext Standing Exercise Name 1. row (anchored elbow height) 2. ext (achored above) Side bilateral Equipment Used [place] band Reps/Minutes 20 each Comments good tiring ER Side left Equipment Used orange band w/towel under arm Reps/Minutes 15 Comments feels very fatigued, cued maintain elbow 90 * counter stretch Standing Exercise Name HEP reviewed Side bilateral Equipment Used side shuttle balance Reps/Minutes 15sec x3 Comments cues for comfortable range Manual Therapy Treatment Soft Tissue Mobilization biceps Body Location L Mobilization Type Rolling Intensity/Depth Moderate Body Position Supine Comments /c flex/IR/ER AAROM- ed gently painfree in PT and with massage therapist pec Body Location L Mobilization Type Rolling,Sustained Pressure Intensity/Depth Moderate Body Position Supine Comments w/ER Joint Mobilizations ribs Joint L Grade II Body Position Hooklying Comments rib 2 and 3 L PA FM FF ; caudal 1st rib FM FF GH Comments L distraction & post into PROM FF and ABD L scapulothoracic Direction inferior glide, URotation Grade II Body Position RSidelying Comments slower pacing with tactile humeral ER/inf glide/UR, shayne for pain Manual Techniques PROM/stretch Type L abd, bicep stretch Body Position Hooklying Comments between PT-OP-R Modalities Start: 08/08/23 08:07 Freq: Status: Active Protocol: Document 09/12/23 10:40 [facility] (Rec: 09/12/23 11:20 [facility] [id number]) Hot Pack/Cold Pack Treatment Cold Pack Location L shoulder Patient Position Sitting Patient Tolerance Good Comments 4 min- feels good, not as sore. f PT-OP-T Assessment and Plan Start: 08/08/23 08:07 Freq: Status: Active Protocol: Document 09/21/23 13:01 SP (Rec: 09/21/23 13:47 SP [id number]) Physical Therapy Assessment Goals activity Short Term Goal (STG) Pt will be able to dress w/o inc pain 09/16-pain about every other day -putting shirt/jacket on/ off STG Duration 10/08/23 Mcfp Goal (LTG) pt will be able to do all work tasks and home tasks w/o accommodation or inc pain in LUE 09/16-uses RUE to reach out- avoid LUE still; pain w/ chores LTG Duration 11/07/23 strength Short Term Goal (STG) Pt will be indep w/HEP STG Duration achieved-advancing as able Drug Abuse Program Coordinator Goal (LTG) Pt will score at least 4+/5 on all LUE MMT and 09/10 EFT in order to show improved stabiltiy to allow her to do her work tasks. 09/16-improved LTG Duration 11/07/23 ROM Short Term Goal (STG) Pt will improve flex and abd of L shoulder by at least 10 deg ea. STG Duration achieved 09/16 Drug Abuse Program Coordinator Goal (LTG) Pt will have full L AROM of L shoulder w/o inc pain in order to allow greater ease w/ADLs LTG Duration 11/07/23 Quick dash Impairment 54.4 Short Term Goal (STG) Pt will improve quick dash score to now greater than 34 to show improved functional ability w/L shoulder. 09/16-no change STG Duration 10/08/23 Mcfp Goal (LTG) Pt will improve quick dash score to now greater than 4 to show improved functional ability w/L shoulder. LTG Duration 11/07/23 Assessment Summary Assessment Pt reported pain along L bicep and anterior L AC jt hooklying into ABD PROM /c tactile cues long axis humeral ER, improved post manual approx 126 deg and change into R SL positioning. Continued education on importance of continuing theraband exercises and slower AROM [place]. Physical Therapy Plan Frequency and Duration Frequency of Treatment 2x/Week Duration of treatment (weeks) 12 Plan of Care Start Date 08/15/23 Plan of Care End Date 11/07/23 Therapeutic Interventions Therapeutic Interventions Gait Training,Home Exercise Program,Joint Mobilizations, Manual Therapy,Neuromuscular Re-education,Orthotic/ Prosthetic Management,Patient/ Caregiver Education,Self-Care/ Home Management,Soft Tissue Mobilization,Taping, Therapeutic Activities, Therapeutic Exercises Modalities Cold Pack/Ice Massage,Electric Stimulation,Hot Packs, Infrared Therapy,Iontophoresis ,Traction- Mechanical, Ultrasound Other Therapeutic Interventions dexamethasone ionto Next Visit Focus/Plan Next Note Type Treatment Note Next Visit Plan NExt tx: review eccentric FF& scaption /c TB give HO if does well w/form POC: cont to advance strengthening and ROM to full manual to work to improve shoulder mobility
--- NOTE | 2023-09-25 13:44 | PT.OTN ---
Current Diagnoses Abnormal posture (09/25/23) Weakness (09/25/23) Superior glenoid labrum lesion of left shoulder, subsequent encounter (09/25/23) Strain of unspecified muscle, fascia and tendon at shoulder and upper arm level, left arm, initial encounter (09/25/23) Physical Therapy Treatment Note PT-OP-A Visit Information Start: 08/08/23 08:07 Freq: Status: Active Protocol: Document 09/21/23 13:01 SP (Rec: 09/21/23 13:47 SP [id number]) Out-Patient Physical Therapy Visit Information Visit Information Visit Type Treatment Note Visit Start Time 13:01 Visit Stop Time 13:44 Visit Number 40 Number of CREDIT INTERVIEWER Visits 1 PT-OP-B Current Condition Start: 08/08/23 08:07 Freq: Status: Active Protocol: Document 08/15/23 14:31 [facility] (Rec: 08/15/23 15:19 [facility] [id number]) Current Condition History of Current Condition Onset Date Jun 11, 2023 Current Complaints L brachium History of Current Condition Pt fell carrying mail bins that broke her fall and felt a sharp pain at that time. It went away but now when she rolls certain ways, or reach w /her arm. She is seeing Dr. Larios. Per pt, w/MRI there is tendonitis, arthritis present and not recommending surgery. A few weeks ago, she reached to grab a cup that was falling and it was sharp pain. She feels like she is losing upper body strength and feels like she is losing ROM and strength B as she is avoiding motion. denies numbness or tingling. pain is sharp w/movement then has a lasting achiness. 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 Pain has not gotten better and in someways has gotten worse w/ the sharp pains. Treatment Goals Patient/Caregiver Goals be able to use arm fully w/o pain PT-OP-C Subjective Start: 08/08/23 08:07 Freq: Status: Active Protocol: Document 09/21/23 13:01 SP (Rec: 09/21/23 13:47 SP [id number]) OP-PT Subjective Patient Comments Patient Comments Pt reports was pretty sore after last tx, assisting her into further range. She was showing her sister her improved AROM L shld front closer to face&head and out to side and it grabbed, thinks did it to quick, demonstrated palm facing floor . PT-OP-F Manual Assessment Start: 08/08/23 08:07 Freq: Status: Active Protocol: Document 08/15/23 14:31 [facility] (Rec: 08/15/23 15:19 [facility] [id number]) Manual Assessments Soft Tissue Assessment Soft Tissue Mobility Assessment tenderness: L pecs, infra & supraspinatus, biceps, & biceps and supra tendon Joint Mobility Assessment Joint Mobility Assessment 1st rib elevation L PT-OP-J Posture/Palpation/Skin Start: 08/08/23 08:07 Freq: Status: Active Protocol: Document 08/15/23 14:31 [facility] (Rec: 08/15/23 15:19 [facility] [id number]) Posture Evaluation [facility] Postural Classification System [facility] Postural Classifications Posterior/Anterior Elbow Flexion Test 1 Comments Posture Comments L>R humerus ant in glenoid, ant tipped, abd, lat tipped L scap, inc kyphosis, mod fwd head PT-OP-K Range of Motion Start: 08/08/23 08:07 Freq: Status: Active Protocol: Document 09/17/23 09:48 [facility] (Rec: 09/17/23 10:37 [facility] [id number]) Shoulder Goniometric Range of Motion Shoulder Left Passive Testing Position Supine Flexion 129 Abduction 100 External Rotation at 45 degrees 63 Abduction Internal Rotation 59 Comments ir at 45 scap plane ;pain all Left Active Flexion 114 Extension 50 Abduction 72 External Rotation at 0 degrees Abduction 48 Internal Rotation Behind Back (text) S1 Comments pain PT-OP-L Special Tests Start: 08/08/23 08:07 Freq: Status: Active Protocol: Document 08/15/23 14:31 [facility] (Rec: 08/15/23 15:19 [facility] [id number]) Special Tests Shoulder Special Tests crank Test Results pos biceps loads Test Results pos [place] Test Test Results pain but pain in speeds also Speed's Biceps Test Results pain but pain in obriens also Car Henrik Impingement Test Results neg Neer Impingement Test Results pos Empty Can Test Results neg PT-OP-M Strength Start: 08/08/23 08:07 Freq: Status: Active Protocol: Document 09/17/23 09:48 [facility] (Rec: 09/17/23 10:37 [facility] [id number]) Shoulder Strength Shoulder Manual Muscle Testing Right Flexion 4+ Good+ Extension 5 Normal Abduction (C5) 4+ Good+ External Rotation 4+ Good+ Internal Rotation 4+ Good+ Comments pain w/IR Left Flexion 4- Good- Extension 4 Good Abduction (C5) 2+ Poor+ External Rotation 4- Good- Internal Rotation 4 Good PT-OP-Q Treatments Start: 08/08/23 08:07 Freq: Status: Active Protocol: Document 09/21/23 13:01 SP (Rec: 09/21/23 13:47 SP [id number]) Therapeutic Exercises Supine Exercises serratus punch Side bilateral Equipment Used small noodle in hands Reps/Minutes 12, 15 Comments target to press to flex Supine Exercise Name FF, ABD /c long axis humeral ER Side bilateral Resistance PROM>AAROM Reps/Minutes 10 Sidelying Exercises shoulder abduction Sidelying Exercise Name 124 deg Side left Resistance AAROM 10%A Reps/Minutes 15 Comments manual assist humeral and scapular inferior glide open book Side left Reps/Minutes 10 Comments cues for trunk motion, slight humeral ER-pnfree range ABD, FF Sidelying Exercise Name FF approx 136 * AROM, AAROM 156* Side left Resistance AAROM Reps/Minutes 8 Comments cues initially for motion; attempted abd but painful at 40 deg so stopped Standing Exercises ext Standing Exercise Name 1. row (anchored elbow height) 2. ext (achored above) Side bilateral Equipment Used [place] band Reps/Minutes 20 each Comments good tiring ER Side left Equipment Used green band w/towel under arm Reps/Minutes 15 Comments feels very fatigued, cued maintain elbow 90 * Manual Therapy Treatment Soft Tissue Mobilization biceps Body Location L Mobilization Type Rolling Intensity/Depth Moderate Body Position Supine Comments /c flex/IR/ER AAROM- ed gently painfree in PT and with massage therapist pec Body Location L Mobilization Type Rolling,Sustained Pressure Intensity/Depth Moderate Body Position Supine Comments w/ER Joint Mobilizations ribs Joint L Grade II Body Position Hooklying Comments rib 2 and 3 L PA FM FF ; caudal 1st rib FM FF GH Comments L distraction & post into PROM FF and ABD L scapulothoracic Direction inferior glide, URotation Grade II Body Position RSidelying Comments slower pacing with tactile humeral ER/inf glide/UR, shayne for pain Manual Techniques PROM/stretch Type L abd, bicep stretch Body Position Hooklying Comments between PT-OP-R Modalities Start: 08/08/23 08:07 Freq: Status: Active Protocol: Document 09/12/23 10:40 [facility] (Rec: 09/12/23 11:20 [facility] [id number]) Hot Pack/Cold Pack Treatment Cold Pack Location L shoulder Patient Position Sitting Patient Tolerance Good Comments 4 min- feels good, not as sore. f PT-OP-T Assessment and Plan Start: 08/08/23 08:07 Freq: Status: Active Protocol: Document 09/21/23 13:01 SP (Rec: 09/21/23 13:47 SP [id number]) Physical Therapy Assessment Goals activity Short Term Goal (STG) Pt will be able to dress w/o inc pain 09/16-pain about every other day -putting shirt/jacket on/ off STG Duration 10/08/23 Longterm Goal (LTG) pt will be able to do all work tasks and home tasks w/o accommodation or inc pain in LUE 09/16-uses RUE to reach out- avoid LUE still; pain w/ chores LTG Duration 11/07/23 strength Short Term Goal (STG) Pt will be indep w/HEP STG Duration achieved-advancing as able Longterm Goal (LTG) Pt will score at least 4+/5 on all LUE MMT and 09/10 EFT in order to show improved stabiltiy to allow her to do her work tasks. 09/16-improved LTG Duration 11/07/23 ROM Short Term Goal (STG) Pt will improve flex and abd of L shoulder by at least 10 deg ea. STG Duration achieved 09/16 Longterm Goal (LTG) Pt will have full L AROM of L shoulder w/o inc pain in order to allow greater ease w/ADLs LTG Duration 11/07/23 Quick dash Impairment 54.4 Short Term Goal (STG) Pt will improve quick dash score to now greater than 34 to show improved functional ability w/L shoulder. 09/16-no change STG Duration 10/08/23 [employer] J[employer]inder Goal (LTG) Pt will improve quick dash score to now greater than 4 to show improved functional ability w/L shoulder. LTG Duration 11/07/23 Assessment Summary Assessment Pt reported pain along L bicep and anterior L AC jt hooklying into ABD PROM /c tactile cues long axis humeral ER, improved post manual approx 126 deg and change into R SL positioning. Continued education on importance of continuing sidelying and standing theraband exercises and slower pacing AROM [place]. Physical Therapy Plan Frequency and Duration Frequency of Treatment 2x/Week Duration of treatment (weeks) 12 Plan of Care Start Date 08/15/23 Plan of Care End Date 11/07/23 Therapeutic Interventions Therapeutic Interventions Gait Training,Home Exercise Program,Joint Mobilizations, Manual Therapy,Neuromuscular Re-education,Orthotic/ Prosthetic Management,Patient/ Caregiver Education,Self-Care/ Home Management,Soft Tissue Mobilization,Taping, Therapeutic Activities, Therapeutic Exercises Modalities Cold Pack/Ice Massage,Electric Stimulation,Hot Packs, Infrared Therapy,Iontophoresis ,Traction- Mechanical, Ultrasound Other Therapeutic Interventions dexamethasone ionto Next Visit Focus/Plan Next Note Type Treatment Note Next Visit Plan NExt tx: review seated eccentric FF & scaption /c TB give HO if does well w/form, sidelying AROM to assist progress AROM against gravity. POC: cont to advance strengthening and ROM to full manual to work to improve shoulder mobility
--- NOTE | 2023-09-27 14:28 | PT.OTN ---
Current Diagnoses Abnormal posture (09/27/23) Weakness (09/27/23) Superior glenoid labrum lesion of left shoulder, subsequent encounter (09/27/23) Strain of unspecified muscle, fascia and tendon at shoulder and upper arm level, left arm, initial encounter (09/27/23) Physical Therapy Treatment Note PT-OP-A Visit Information Start: 08/08/23 08:07 Freq: Status: Active Protocol: Document 09/27/23 13:48 SP (Rec: 09/27/23 14:34 SP [id number]) Out-Patient Physical Therapy Visit Information Visit Information Visit Type Treatment Note Visit Note 09/27/23: 06/19 *Next tx start 2nd approval: visits Visit Start Time 13:48 Visit Stop Time 14:28 Visit Number 06/19 Number of SENIOR ELECTRICAL DESIGNER Visits 2 PT-OP-B Current Condition Start: 08/08/23 08:07 Freq: Status: Active Protocol: Document 08/15/23 14:31 [facility] (Rec: 08/15/23 15:19 [facility] [id number]) Current Condition History of Current Condition Onset Date Jun 11, 2023 Current Complaints L brachium History of Current Condition Pt fell carrying mail bins that broke her fall and felt a sharp pain at that time. It went away but now when she rolls certain ways, or reach w /her arm. She is seeing Dr. Larios. Per pt, w/MRI there is tendonitis, arthritis present and not recommending surgery. A few weeks ago, she reached to grab a cup that was falling and it was sharp pain. She feels like she is losing upper body strength and feels like she is losing ROM and strength B as she is avoiding motion. denies numbness or tingling. pain is sharp w/movement then has a lasting achiness. 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 Pain has not gotten better and in someways has gotten worse w/ the sharp pains. Treatment Goals Patient/Caregiver Goals be able to use arm fully w/o pain PT-OP-C Subjective Start: 08/08/23 08:07 Freq: Status: Active Protocol: Document 09/27/23 13:48 SP (Rec: 09/27/23 14:34 SP [id number]) OP-PT Subjective Patient Comments Patient Comments Pt reports woke up with a headache that doesn't normally get and her R knee tweeked today. Emotional stress last night. PT-OP-F Manual Assessment Start: 08/08/23 08:07 Freq: Status: Active Protocol: Document 08/15/23 14:31 [facility] (Rec: 08/15/23 15:19 [facility] [id number]) Manual Assessments Soft Tissue Assessment Soft Tissue Mobility Assessment tenderness: L pecs, infra & supraspinatus, biceps, & biceps and supra tendon Joint Mobility Assessment Joint Mobility Assessment 1st rib elevation L PT-OP-J Posture/Palpation/Skin Start: 08/08/23 08:07 Freq: Status: Active Protocol: Document 08/15/23 14:31 [facility] (Rec: 08/15/23 15:19 [facility] [id number]) Posture Evaluation [facility] Postural Classification System [place] Postural Classifications Posterior/Anterior Elbow Flexion Test 1 Comments Posture Comments L>R humerus ant in glenoid, ant tipped, abd, lat tipped L scap, inc kyphosis, mod fwd head PT-OP-K Range of Motion Start: 08/08/23 08:07 Freq: Status: Active Protocol: Document 09/17/23 09:48 [facility] (Rec: 09/17/23 10:37 [facility] [id number]) Shoulder Goniometric Range of Motion Shoulder Left Passive Testing Position Supine Flexion 129 Abduction 100 External Rotation at 45 degrees 63 Abduction Internal Rotation 59 Comments ir at 45 scap plane ;pain all Left Active Flexion 114 Extension 50 Abduction 72 External Rotation at 0 degrees Abduction 48 Internal Rotation Behind Back (text) S1 Comments pain PT-OP-L Special Tests Start: 08/08/23 08:07 Freq: Status: Active Protocol: Document 08/15/23 14:31 [facility] (Rec: 08/15/23 15:19 [facility] [id number]) Special Tests Shoulder Special Tests crank Test Results pos biceps loads Test Results pos [place] Test Test Results pain but pain in speeds also Speed's Biceps Test Results pain but pain in obriens also Car Henrik Impingement Test Results neg Neer Impingement Test Results pos Empty Can Test Results neg PT-OP-M Strength Start: 08/08/23 08:07 Freq: Status: Active Protocol: Document 09/17/23 09:48 [facility] (Rec: 09/17/23 10:37 [facility] [id number]) Shoulder Strength Shoulder Manual Muscle Testing Right Flexion 4+ Good+ Extension 5 Normal Abduction (C5) 4+ Good+ External Rotation 4+ Good+ Internal Rotation 4+ Good+ Comments pain w/IR Left Flexion 4- Good- Extension 4 Good Abduction (C5) 2+ Poor+ External Rotation 4- Good- Internal Rotation 4 Good PT-OP-Q Treatments Start: 08/08/23 08:07 Freq: Status: Active Protocol: Document 09/27/23 13:48 SP (Rec: 09/27/23 14:34 SP [id number]) Therapeutic Exercises Sidelying Exercises shoulder abduction Sidelying Exercise Name 132 deg Side left Resistance AAROM 5%A Reps/Minutes 15 Comments tactil cues scap/humeral inf glide into [place] open book Side left Reps/Minutes 10 Comments cues for trunk motion, slight humeral ER-pnfree range ABD, FF Sidelying Exercise Name FF approx 138 * AROM Side left Resistance AROM Reps/Minutes 8 Comments tactile cues for on side, scapular UR AROM Manual Therapy Treatment Soft Tissue Mobilization neck Body Location PULLING UNIT FLOORHAND: sphenoid, temporalis, frontalis, caudal glide mandible, SOR Mobilization Type Sustained Pressure Body Position Hooklying Comments diminished headache post cuff/ UT/levator scap Body Location L UT, LS, pec, Teres, Infra, Rhomboid, Mobilization Type Cross-Friction,Rolling Intensity/Depth Moderate Body Position Sidelying Comments prior to scapular mobilization biceps Body Location L Mobilization Type Rolling Intensity/Depth Moderate Body Position Supine Comments humeral /c flex/IR/ER AAROM,, elbow flex/ext Joint Mobilizations L scapulothoracic Direction inferior glide, URotation Grade II Body Position RSidelying Comments slower pacing with tactile humeral ER/inf glide/UR, shayne for pain PT-OP-R Modalities Start: 08/08/23 08:07 Freq: Status: Active Protocol: Document 09/12/23 10:40 [facility] (Rec: 09/12/23 11:20 [facility] [id number]) Hot Pack/Cold Pack Treatment Cold Pack Location L shoulder Patient Position Sitting Patient Tolerance Good Comments 4 min- feels good, not as sore. f PT-OP-T Assessment and Plan Start: 08/08/23 08:07 Freq: Status: Active Protocol: Document 09/27/23 13:48 SP (Rec: 09/27/23 14:34 SP [id number]) Physical Therapy Assessment Goals activity Short Term Goal (STG) Pt will be able to dress w/o inc pain 09/16-pain about every other day -putting shirt/jacket on/ off STG Duration 10/08/23 Retirement Goal (LTG) pt will be able to do all work tasks and home tasks w/o accommodation or inc pain in LUE 09/16-uses RUE to reach out- avoid LUE still; pain w/ chores LTG Duration 11/07/23 strength Short Term Goal (STG) Pt will be indep w/HEP STG Duration achieved-advancing as able Battery Service Technician Goal (LTG) Pt will score at least 4+/5 on all LUE MMT and 09/10 EFT in order to show improved stabiltiy to allow her to do her work tasks. 09/16-improved LTG Duration 11/07/23 ROM Short Term Goal (STG) Pt will improve flex and abd of L shoulder by at least 10 deg ea. STG Duration achieved 09/16 Retirement Goal (LTG) Pt will have full L AROM of L shoulder w/o inc pain in order to allow greater ease w/ADLs LTG Duration 11/07/23 Quick dash Impairment 54.4 Short Term Goal (STG) Pt will improve quick dash score to now greater than 34 to show improved functional ability w/L shoulder. 09/16-no change STG Duration 10/08/23 Retirement Goal (LTG) Pt will improve quick dash score to now greater than 4 to show improved functional ability w/L shoulder. LTG Duration 11/07/23 Assessment Summary Assessment Pt making small gains in AROM on side, tactile cues for trunk and head alignment, facilitated scapular inferior glide and UR support gains in ROM, tends to recruit UT. Pt reports neck and head feel alot better end tx, no headache. SENIOR ELECTRICAL DESIGNER suggested continue HEP for self progression in strength and ROM. Physical Therapy Plan Frequency and Duration Frequency of Treatment 2x/Week Duration of treatment (weeks) 12 Plan of Care Start Date 08/15/23 Plan of Care End Date 11/07/23 Therapeutic Interventions Therapeutic Interventions Gait Training,Home Exercise Program,Joint Mobilizations, Manual Therapy,Neuromuscular Re-education,Orthotic/ Prosthetic Management,Patient/ Caregiver Education,Self-Care/ Home Management,Soft Tissue Mobilization,Taping, Therapeutic Activities, Therapeutic Exercises Modalities Cold Pack/Ice Massage,Electric Stimulation,Hot Packs, Infrared Therapy,Iontophoresis ,Traction- Mechanical, Ultrasound Other Therapeutic Interventions dexamethasone ionto Next Visit Focus/Plan Next Note Type Treatment Note Next Visit Plan NExt tx: review seated eccentric FF & scaption /c TB give HO if does well w/form, sidelying AROM to assist progress AROM against gravity. POC: cont to advance strengthening and ROM to full manual to work to improve shoulder mobility
--- NOTE | 2023-10-01 14:35 | PT.OTN ---
Current Diagnoses Abnormal posture (10/01/23) Weakness (10/01/23) Superior glenoid labrum lesion of left shoulder, subsequent encounter (10/01/23) Strain of unspecified muscle, fascia and tendon at shoulder and upper arm level, left arm, initial encounter (10/01/23) Physical Therapy Treatment Note PT-OP-A Visit Information Start: 08/08/23 08:07 Freq: Status: Active Protocol: Document 10/01/23 13:57 [facility] (Rec: 10/01/23 14:35 [facility] [id number]) Out-Patient Physical Therapy Visit Information Visit Information Visit Type Treatment Note Visit Start Time 13:50 Visit Stop Time 14:40 Visit Number Number of INSTRUCTIONAL FACILITATOR Visits 0 PT-OP-B Current Condition Start: 08/08/23 08:07 Freq: Status: Active Protocol: Document 08/15/23 14:31 [facility] (Rec: 08/15/23 15:19 [facility] [id number]) Current Condition History of Current Condition Onset Date Jun 11, 2023 Current Complaints L brachium History of Current Condition Pt fell carrying mail bins that broke her fall and felt a sharp pain at that time. It went away but now when she rolls certain ways, or reach w /her arm. She is seeing Dr. Larios. Per pt, w/MRI there is tendonitis, arthritis present and not recommending surgery. A few weeks ago, she reached to grab a cup that was falling and it was sharp pain. She feels like she is losing upper body strength and feels like she is losing ROM and strength B as she is avoiding motion. denies numbness or tingling. pain is sharp w/movement then has a lasting achiness. 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 Pain has not gotten better and in someways has gotten worse w/ the sharp pains. Treatment Goals Patient/Caregiver Goals be able to use arm fully w/o pain PT-OP-C Subjective Start: 08/08/23 08:07 Freq: Status: Active Protocol: Document 10/01/23 13:57 [facility] (Rec: 10/01/23 14:35 [facility] [id number]) OP-PT Subjective Patient Comments Patient Comments Pt reports did have a sharp pain when putting cookies into oven PT-OP-F Manual Assessment Start: 08/08/23 08:07 Freq: Status: Active Protocol: Document 08/15/23 14:31 [facility] (Rec: 08/15/23 15:19 [facility] [id number]) Manual Assessments Soft Tissue Assessment Soft Tissue Mobility Assessment tenderness: L pecs, infra & supraspinatus, biceps, & biceps and supra tendon Joint Mobility Assessment Joint Mobility Assessment 1st rib elevation L PT-OP-J Posture/Palpation/Skin Start: 08/08/23 08:07 Freq: Status: Active Protocol: Document 08/15/23 14:31 [facility] (Rec: 08/15/23 15:19 [facility] [id number]) Posture Evaluation [facility] Postural Classification System [facility] Postural Classifications Posterior/Anterior Elbow Flexion Test 1 Comments Posture Comments L>R humerus ant in glenoid, ant tipped, abd, lat tipped L scap, inc kyphosis, mod fwd head PT-OP-K Range of Motion Start: 08/08/23 08:07 Freq: Status: Active Protocol: Document 09/17/23 09:48 [facility] (Rec: 09/17/23 10:37 [facility] [id number]) Shoulder Goniometric Range of Motion Shoulder Left Passive Testing Position Supine Flexion 129 Abduction 100 External Rotation at 45 degrees 63 Abduction Internal Rotation 59 Comments ir at 45 scap plane ;pain all Left Active Flexion 114 Extension 50 Abduction 72 External Rotation at 0 degrees Abduction 48 Internal Rotation Behind Back (text) S1 Comments pain PT-OP-L Special Tests Start: 08/08/23 08:07 Freq: Status: Active Protocol: Document 08/15/23 14:31 [facility] (Rec: 08/15/23 15:19 [facility] [id number]) Special Tests Shoulder Special Tests crank Test Results pos biceps loads Test Results pos [place] Test Test Results pain but pain in speeds also Speed's Biceps Test Results pain but pain in obriens also Car Henrik Impingement Test Results neg Neer Impingement Test Results pos Empty Can Test Results neg PT-OP-M Strength Start: 08/08/23 08:07 Freq: Status: Active Protocol: Document 09/17/23 09:48 [facility] (Rec: 09/17/23 10:37 [facility] [id number]) Shoulder Strength Shoulder Manual Muscle Testing Right Flexion 4+ Good+ Extension 5 Normal Abduction (C5) 4+ Good+ External Rotation 4+ Good+ Internal Rotation 4+ Good+ Comments pain w/IR Left Flexion 4- Good- Extension 4 Good Abduction (C5) 2+ Poor+ External Rotation 4- Good- Internal Rotation 4 Good PT-OP-Q Treatments Start: 08/08/23 08:07 Freq: Status: Active Protocol: Document 10/01/23 13:57 [facility] (Rec: 10/01/23 14:35 [facility] [id number]) Therapeutic Exercises Supine Exercises rotation Supine Exercise Name 90/90 Side left Reps/Minutes 20 serratus punch Supine Exercise Name on 1/2 foam roll Side bilateral Equipment Used 1# Reps/Minutes 15 Comments chest press to punch pec stretch on soft 1/2 foam roller Supine Exercise Name 1. HAbd 2. flex Side bilateral Reps/Minutes 10 Sidelying Exercises shoulder abduction Sidelying Exercise Name to 90 Side left Equipment Used 1# Reps/Minutes 15 Sitting Exercises ER Sitting Exercise Name elbow on mat Side left Reps/Minutes 15 pulleys Sitting Exercise Name flex, scaption,abd Side left Resistance AAROM Reps/Minutes 20 ea slow controlled Comments cues for Manual Therapy Treatment Soft Tissue Mobilization inf Body Location L lats, teres Mobilization Type Sustained Pressure Comments w/flex pec Body Location L Mobilization Type Rolling,Sustained Pressure Intensity/Depth Moderate Body Position Supine Comments w/ER Joint Mobilizations ribs Comments L caudal 1st rib FM SC Comments L inf FM AC Joint L clavicle ant fM GH Reps/Duration c/r Comments L post FM w/Habd; distraction w/flex; inf FM w/abd PT-OP-R Modalities Start: 08/08/23 08:07 Freq: Status: Active Protocol: Document 10/01/23 13:57 [facility] (Rec: 10/01/23 14:35 [facility] [id number]) Hot Pack/Cold Pack Treatment Cold Pack Location L shoulder Patient Position Supine Patient Tolerance Good PT-OP-T Assessment and Plan Start: 08/08/23 08:07 Freq: Status: Active Protocol: Document 10/01/23 13:57 [facility] (Rec: 10/01/23 14:35 [facility] [id number]) Physical Therapy Assessment Goals activity Short Term Goal (STG) Pt will be able to dress w/o inc pain 09/16-pain about every other day -putting shirt/jacket on/ off STG Duration 10/08/23 Director Of Architecture Goal (LTG) pt will be able to do all work tasks and home tasks w/o accommodation or inc pain in LUE 09/16-uses RUE to reach out- avoid LUE still; pain w/ chores LTG Duration 11/07/23 strength Short Term Goal (STG) Pt will be indep w/HEP STG Duration achieved-advancing as able Halfway Goal (LTG) Pt will score at least 4+/5 on all LUE MMT and 09/10 EFT in order to show improved stabiltiy to allow her to do her work tasks. 09/16-improved LTG Duration 11/07/23 ROM Short Term Goal (STG) Pt will improve flex and abd of L shoulder by at least 10 deg ea. STG Duration achieved 09/16 Director Of Architecture Goal (LTG) Pt will have full L AROM of L shoulder w/o inc pain in order to allow greater ease w/ADLs LTG Duration 11/07/23 Quick dash Impairment 54.4 Short Term Goal (STG) Pt will improve quick dash score to now greater than 34 to show improved functional ability w/L shoulder. 09/16-no change STG Duration 10/08/23 Director Of Architecture Goal (LTG) Pt will improve quick dash score to now greater than 4 to show improved functional ability w/L shoulder. LTG Duration 11/07/23 Assessment Summary Assessment Pt did well with manual with improved ROM. She had improved tolerance w/exercises today and tolerated 1# w/abd. Physical Therapy Plan Frequency and Duration Frequency of Treatment 2x/Week Duration of treatment (weeks) 12 Plan of Care Start Date 08/15/23 Plan of Care End Date 11/07/23 Next Visit Focus/Plan Next Note Type Treatment Note Next Visit Plan NExt tx: review seated eccentric FF & scaption /c TB give HO if does well w/form POC: cont to advance strengthening and ROM to full manual to work to improve shoulder mobility
--- NOTE | 2023-10-04 14:29 | PT.OTN ---
Current Diagnoses Abnormal posture (10/04/23) Weakness (10/04/23) Superior glenoid labrum lesion of left shoulder, subsequent encounter (10/04/23) Strain of unspecified muscle, fascia and tendon at shoulder and upper arm level, left arm, initial encounter (10/04/23) Physical Therapy Treatment Note PT-OP-A Visit Information Start: 08/08/23 08:07 Freq: Status: Active Protocol: Document 10/04/23 13:49 [facility] (Rec: 10/04/23 14:29 [facility] [id number]) Out-Patient Physical Therapy Visit Information Visit Information Visit Type Treatment Note Visit Start Time 13:48 Visit Stop Time 14:28 Visit Number Number of BUTTONHOLE TACKER Visits 0 PT-OP-B Current Condition Start: 08/08/23 08:07 Freq: Status: Active Protocol: Document 08/15/23 14:31 [facility] (Rec: 08/15/23 15:19 [facility] [id number]) Current Condition History of Current Condition Onset Date Jun 11, 2023 Current Complaints L brachium History of Current Condition Pt fell carrying mail bins that broke her fall and felt a sharp pain at that time. It went away but now when she rolls certain ways, or reach w /her arm. She is seeing Dr. Larios. Per pt, w/MRI there is tendonitis, arthritis present and not recommending surgery. A few weeks ago, she reached to grab a cup that was falling and it was sharp pain. She feels like she is losing upper body strength and feels like she is losing ROM and strength B as she is avoiding motion. denies numbness or tingling. pain is sharp w/movement then has a lasting achiness. 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 Pain has not gotten better and in someways has gotten worse w/ the sharp pains. Treatment Goals Patient/Caregiver Goals be able to use arm fully w/o pain PT-OP-C Subjective Start: 08/08/23 08:07 Freq: Status: Active Protocol: Document 10/04/23 13:49 [facility] (Rec: 10/04/23 14:29 [facility] [id number]) OP-PT Subjective Patient Comments Patient Comments Couple days ago, had some ant chest tenderness. Notes her massage therapist thought she was doing better PT-OP-F Manual Assessment Start: 08/08/23 08:07 Freq: Status: Active Protocol: Document 08/15/23 14:31 [facility] (Rec: 08/15/23 15:19 [facility] [id number]) Manual Assessments Soft Tissue Assessment Soft Tissue Mobility Assessment tenderness: L pecs, infra & supraspinatus, biceps, & biceps and supra tendon Joint Mobility Assessment Joint Mobility Assessment 1st rib elevation L PT-OP-J Posture/Palpation/Skin Start: 08/08/23 08:07 Freq: Status: Active Protocol: Document 08/15/23 14:31 [facility] (Rec: 08/15/23 15:19 [facility] [id number]) Posture Evaluation [facility] Postural Classification System [facility] Postural Classifications Posterior/Anterior Elbow Flexion Test 1 Comments Posture Comments L>R humerus ant in glenoid, ant tipped, abd, lat tipped L scap, inc kyphosis, mod fwd head PT-OP-K Range of Motion Start: 08/08/23 08:07 Freq: Status: Active Protocol: Document 09/17/23 09:48 [facility] (Rec: 09/17/23 10:37 [facility] [id number]) Shoulder Goniometric Range of Motion Shoulder Left Passive Testing Position Supine Flexion 129 Abduction 100 External Rotation at 45 degrees 63 Abduction Internal Rotation 59 Comments ir at 45 scap plane ;pain all Left Active Flexion 114 Extension 50 Abduction 72 External Rotation at 0 degrees Abduction 48 Internal Rotation Behind Back (text) S1 Comments pain PT-OP-L Special Tests Start: 08/08/23 08:07 Freq: Status: Active Protocol: Document 08/15/23 14:31 [facility] (Rec: 08/15/23 15:19 [facility] [id number]) Special Tests Shoulder Special Tests crank Test Results pos biceps loads Test Results pos [place] Test Test Results pain but pain in speeds also Speed's Biceps Test Results pain but pain in obriens also Car Henrik Impingement Test Results neg Neer Impingement Test Results pos Empty Can Test Results neg PT-OP-M Strength Start: 08/08/23 08:07 Freq: Status: Active Protocol: Document 09/17/23 09:48 [facility] (Rec: 09/17/23 10:37 [facility] [id number]) Shoulder Strength Shoulder Manual Muscle Testing Right Flexion 4+ Good+ Extension 5 Normal Abduction (C5) 4+ Good+ External Rotation 4+ Good+ Internal Rotation 4+ Good+ Comments pain w/IR Left Flexion 4- Good- Extension 4 Good Abduction (C5) 2+ Poor+ External Rotation 4- Good- Internal Rotation 4 Good PT-OP-Q Treatments Start: 08/08/23 08:07 Freq: Status: Active Protocol: Document 10/04/23 13:49 [facility] (Rec: 10/04/23 14:29 [facility] [id number]) Gym Equipment Cable Column (Body Solid) Lat Pull Down Resistance 2 Reps/Time 12 Therapeutic Exercises Supine Exercises rotation Supine Exercise Name 90/90 Side left Reps/Minutes 20 serratus punch Side bilateral Equipment Used 2# Reps/Minutes 15 Comments chest press to punch Sidelying Exercises shoulder abduction Sidelying Exercise Name to 90 Side left Equipment Used 1# Reps/Minutes 15 open book Side left Reps/Minutes 10 Comments cues for as much trunk motion possible Sitting Exercises ER Sitting Exercise Name elbow on mat Side left Equipment Used 1# Reps/Minutes 15 Standing Exercises IR Standing Exercise Name tband Side left Equipment Used green band w/towel Reps/Minutes 12 ea ext Standing Exercise Name 1. row (anchored elbow height) 2. ext (achored above) Side bilateral Equipment Used blue band Reps/Minutes 20 each Comments cues scap ER Side left Equipment Used green band w/towel under arm Reps/Minutes 15 Comments feels very fatigued, cued maintain elbow 90 * Manual Therapy Treatment Soft Tissue Mobilization inf Body Location L lats, teres Mobilization Type Sustained Pressure Comments w/flex pec Body Location L Mobilization Type Rolling,Sustained Pressure Intensity/Depth Moderate Body Position Supine Comments w/ER Joint Mobilizations AC Joint L clavicle ant fM GH Reps/Duration c/r Comments L post FM w/Habd; distraction w/flex; inf FM w/abd PT-OP-R Modalities Start: 08/08/23 08:07 Freq: Status: Active Protocol: Document 10/01/23 13:57 [facility] (Rec: 10/01/23 14:35 [facility] [id number]) Hot Pack/Cold Pack Treatment Cold Pack Location L shoulder Patient Position Supine Patient Tolerance Good PT-OP-T Assessment and Plan Start: 08/08/23 08:07 Freq: Status: Active Protocol: Document 10/04/23 13:49 [facility] (Rec: 10/04/23 14:29 [facility] [id number]) Physical Therapy Assessment Goals activity Short Term Goal (STG) Pt will be able to dress w/o inc pain 09/16-pain about every other day -putting shirt/jacket on/ off STG Duration 10/08/23 Spiritual Counselor Goal (LTG) pt will be able to do all work tasks and home tasks w/o accommodation or inc pain in LUE 09/16-uses RUE to reach out- avoid LUE still; pain w/ chores LTG Duration 11/07/23 strength Short Term Goal (STG) Pt will be indep w/HEP STG Duration achieved-advancing as able Spiritual Counselor Goal (LTG) Pt will score at least 4+/5 on all LUE MMT and 09/10 EFT in order to show improved stabiltiy to allow her to do her work tasks. 09/16-improved LTG Duration 11/07/23 ROM Short Term Goal (STG) Pt will improve flex and abd of L shoulder by at least 10 deg ea. STG Duration achieved 09/16 Residential Goal (LTG) Pt will have full L AROM of L shoulder w/o inc pain in order to allow greater ease w/ADLs LTG Duration 11/07/23 Quick dash Impairment 54.4 Short Term Goal (STG) Pt will improve quick dash score to now greater than 34 to show improved functional ability w/L shoulder. 09/16-no change STG Duration 10/08/23 Spiritual Counselor Goal (LTG) Pt will improve quick dash score to now greater than 4 to show improved functional ability w/L shoulder. LTG Duration 11/07/23 Assessment Summary Assessment Pt did well with progress of exercises with inc resistance. She showed improved ER in 90/ 90 position in sitting today. Improved flex w/manual treatment Physical Therapy Plan Frequency and Duration Frequency of Treatment 2x/Week Duration of treatment (weeks) 12 Plan of Care Start Date 08/15/23 Plan of Care End Date 11/07/23 Next Visit Focus/Plan Next Note Type Treatment Note Next Visit Plan cont to advance strengthening and ROM to full manual to work to improve shoulder mobility
--- NOTE | 2023-10-08 12:42 | PT.OTN ---
Current Diagnoses Abnormal posture (10/08/23) Weakness (10/08/23) Superior glenoid labrum lesion of left shoulder, subsequent encounter (10/08/23) Strain of unspecified muscle, fascia and tendon at shoulder and upper arm level, left arm, initial encounter (10/08/23) Physical Therapy Treatment Note PT-OP-A Visit Information Start: 08/08/23 08:07 Freq: Status: Active Protocol: Document 10/08/23 11:16 [facility] (Rec: 10/08/23 12:42 [facility] [id number]) Out-Patient Physical Therapy Visit Information Visit Information Visit Type Treatment Note Visit Start Time 11:19 Visit Stop Time 12:02 Visit Number Number of BRINE PURIFIER Visits 1 PT-OP-B Current Condition Start: 08/08/23 08:07 Freq: Status: Active Protocol: Document 08/15/23 14:31 [facility] (Rec: 08/15/23 15:19 [facility] [id number]) Current Condition History of Current Condition Onset Date Jun 11, 2023 Current Complaints L brachium History of Current Condition Pt fell carrying mail bins that broke her fall and felt a sharp pain at that time. It went away but now when she rolls certain ways, or reach w /her arm. She is seeing Dr. Larios. Per pt, w/MRI there is tendonitis, arthritis present and not recommending surgery. A few weeks ago, she reached to grab a cup that was falling and it was sharp pain. She feels like she is losing upper body strength and feels like she is losing ROM and strength B as she is avoiding motion. denies numbness or tingling. pain is sharp w/movement then has a lasting achiness. 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 Pain has not gotten better and in someways has gotten worse w/ the sharp pains. Treatment Goals Patient/Caregiver Goals be able to use arm fully w/o pain PT-OP-C Subjective Start: 08/08/23 08:07 Freq: Status: Active Protocol: Document 10/08/23 11:16 [facility] (Rec: 10/08/23 12:42 [facility] [id number]) OP-PT Subjective Patient Comments Patient Comments Patient reports she sees progress, but the left shoulder has about half of the motion out the the side ( abduction) notes movement is greater with (gestures into) flexion. AROM left shoulder abduction 85 deg start of session. PT-OP-F Manual Assessment Start: 08/08/23 08:07 Freq: Status: Active Protocol: Document 08/15/23 14:31 [facility] (Rec: 08/15/23 15:19 [facility] [id number]) Manual Assessments Soft Tissue Assessment Soft Tissue Mobility Assessment tenderness: L pecs, infra & supraspinatus, biceps, & biceps and supra tendon Joint Mobility Assessment Joint Mobility Assessment 1st rib elevation L PT-OP-J Posture/Palpation/Skin Start: 08/08/23 08:07 Freq: Status: Active Protocol: Document 08/15/23 14:31 [facility] (Rec: 08/15/23 15:19 [facility] [id number]) Posture Evaluation [facility] Postural Classification System [facility] Postural Classifications Posterior/Anterior Elbow Flexion Test 1 Comments Posture Comments L>R humerus ant in glenoid, ant tipped, abd, lat tipped L scap, inc kyphosis, mod fwd head PT-OP-K Range of Motion Start: 08/08/23 08:07 Freq: Status: Active Protocol: Document 09/17/23 09:48 [facility] (Rec: 09/17/23 10:37 [facility] [id number]) Shoulder Goniometric Range of Motion Shoulder Left Passive Testing Position Supine Flexion 129 Abduction 100 External Rotation at 45 degrees 63 Abduction Internal Rotation 59 Comments ir at 45 scap plane ;pain all Left Active Flexion 114 Extension 50 Abduction 72 External Rotation at 0 degrees Abduction 48 Internal Rotation Behind Back (text) S1 Comments pain PT-OP-L Special Tests Start: 08/08/23 08:07 Freq: Status: Active Protocol: Document 08/15/23 14:31 [facility] (Rec: 08/15/23 15:19 [facility] [id number]) Special Tests Shoulder Special Tests crank Test Results pos biceps loads Test Results pos [place] Test Test Results pain but pain in speeds also Speed's Biceps Test Results pain but pain in obriens also Car Henrik Impingement Test Results neg Neer Impingement Test Results pos Empty Can Test Results neg PT-OP-M Strength Start: 08/08/23 08:07 Freq: Status: Active Protocol: Document 09/17/23 09:48 [facility] (Rec: 09/17/23 10:37 [facility] [id number]) Shoulder Strength Shoulder Manual Muscle Testing Right Flexion 4+ Good+ Extension 5 Normal Abduction (C5) 4+ Good+ External Rotation 4+ Good+ Internal Rotation 4+ Good+ Comments pain w/IR Left Flexion 4- Good- Extension 4 Good Abduction (C5) 2+ Poor+ External Rotation 4- Good- Internal Rotation 4 Good PT-OP-Q Treatments Start: 08/08/23 08:07 Freq: Status: Active Protocol: Document 10/08/23 11:16 [facility] (Rec: 10/08/23 12:42 [id number]) Cardio Equipment Upper Body Ergometer (UBE) Duration (Minutes) 4 RPM 120 Seat Position 10 Height 7 Other fwd/back standing Therapeutic Exercises Supine Exercises alternating UE flexion on foam roller Side bilateral Reps/Minutes X10 Comments verbal cues shoulder abduction on 1/2 foam roller Side bilateral Reps/Minutes X10 Comments VC to perform only within range that UE remains on mat Sidelying Exercises shoulder abduction Sidelying Exercise Name full AROM Side left Equipment Used 1# Reps/Minutes X10 without weight X15 with 1 lb open book Side left Reps/Minutes 10 Comments cues for as much trunk motion possible sidelying shoulder ER AROM Sidelying Exercise Name AROM Side left Reps/Minutes X10 Standing Exercises wall slide with band Standing Exercise Name ER with band with wall slide flexion Resistance light blue band Reps/Minutes X10 AROM diagnol horizontal abduction Side bilateral Reps/Minutes X3 Comments limited by pain and UT activation Wall slide flexion Side left Reps/Minutes X3 Comments with stepping to wall, slide up, lift off and lower, not arlene Manual Therapy Treatment Soft Tissue Mobilization post cuff/ UT/levator scap Body Location L UT, LS, pec, Teres, Infra, Rhomboid, Mobilization Type Cross-Friction,Rolling Intensity/Depth Moderate Body Position Sidelying Comments prior to scapular mobilization pec Body Location L Mobilization Type Rolling,Sustained Pressure Intensity/Depth Moderate Body Position Supine Comments w/ER Joint Mobilizations GH Joint inf and ap left shoulder Grade IV Body Position Hooklying L scapulothoracic Direction inferior glide, URotation Grade III Body Position RSidelying Comments slower pacing with tactile humeral ER/inf glide/UR, shayne for pain PT-OP-R Modalities Start: 08/08/23 08:07 Freq: Status: Active Protocol: Document 10/01/23 13:57 [facility] (Rec: 10/01/23 14:35 [facility] [id number]) Hot Pack/Cold Pack Treatment Cold Pack Location L shoulder Patient Position Supine Patient Tolerance Good PT-OP-T Assessment and Plan Start: 08/08/23 08:07 Freq: Status: Active Protocol: Document 10/08/23 11:16 [facility] (Rec: 10/08/23 12:42 [facility] [id number]) Physical Therapy Assessment Goals activity Short Term Goal (STG) Pt will be able to dress w/o inc pain 09/16-pain about every other day -putting shirt/jacket on/ off STG Duration 10/08/23 Care Home Goal (LTG) pt will be able to do all work tasks and home tasks w/o accommodation or inc pain in LUE 09/16-uses RUE to reach out- avoid LUE still; pain w/ chores LTG Duration 11/07/23 strength Short Term Goal (STG) Pt will be indep w/HEP STG Duration achieved-advancing as able Professor Of Social Work Goal (LTG) Pt will score at least 4+/5 on all LUE MMT and 09/10 EFT in order to show improved stabiltiy to allow her to do her work tasks. 09/16-improved LTG Duration 11/07/23 ROM Short Term Goal (STG) Pt will improve flex and abd of L shoulder by at least 10 deg ea. STG Duration achieved 09/16 Care Home Goal (LTG) Pt will have full L AROM of L shoulder w/o inc pain in order to allow greater ease w/ADLs LTG Duration 11/07/23 Quick dash Impairment 54.4 Short Term Goal (STG) Pt will improve quick dash score to now greater than 34 to show improved functional ability w/L shoulder. 09/16-no change STG Duration 10/08/23 Care Home Goal (LTG) Pt will improve quick dash score to now greater than 4 to show improved functional ability w/L shoulder. LTG Duration 11/07/23 Assessment Summary Assessment Decreased arlene to wal slide with lift off, and horizontal abduction, but good arlene to wall slide flexion with band. 95 deg AROM left shoulder abduction end of session Physical Therapy Plan Frequency and Duration Frequency of Treatment 2x/Week Duration of treatment (weeks) 12 Plan of Care Start Date 08/15/23 Plan of Care End Date 11/07/23 Next Visit Focus/Plan Next Note Type Treatment Note Next Visit Plan cont to advance strengthening and ROM to full manual to work to improve shoulder mobility
--- NOTE | 2023-10-10 13:46 | PT.OTN ---
Current Diagnoses Abnormal posture (10/10/23) Weakness (10/10/23) Superior glenoid labrum lesion of left shoulder, subsequent encounter (10/10/23) Strain of unspecified muscle, fascia and tendon at shoulder and upper arm level, left arm, initial encounter (10/10/23) Physical Therapy Treatment Note PT-OP-A Visit Information Start: 08/08/23 08:07 Freq: Status: Active Protocol: Document 10/10/23 13:04 [facility] (Rec: 10/10/23 13:46 [facility] [id number]) Out-Patient Physical Therapy Visit Information Visit Information Visit Type Treatment Note Visit Start Time 13:03 Visit Stop Time 13:43 Visit Number Number of SPRAY DRIER Visits 0 PT-OP-B Current Condition Start: 08/08/23 08:07 Freq: Status: Active Protocol: Document 08/15/23 14:31 [facility] (Rec: 08/15/23 15:19 [facility] [id number]) Current Condition History of Current Condition Onset Date Jun 11, 2023 Current Complaints L brachium History of Current Condition Pt fell carrying mail bins that broke her fall and felt a sharp pain at that time. It went away but now when she rolls certain ways, or reach w /her arm. She is seeing Dr. Larios. Per pt, w/MRI there is tendonitis, arthritis present and not recommending surgery. A few weeks ago, she reached to grab a cup that was falling and it was sharp pain. She feels like she is losing upper body strength and feels like she is losing ROM and strength B as she is avoiding motion. denies numbness or tingling. pain is sharp w/movement then has a lasting achiness. 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 Pain has not gotten better and in someways has gotten worse w/ the sharp pains. Treatment Goals Patient/Caregiver Goals be able to use arm fully w/o pain PT-OP-C Subjective Start: 08/08/23 08:07 Freq: Status: Active Protocol: Document 10/10/23 13:04 [facility] (Rec: 10/10/23 13:46 [facility] [id number]) OP-PT Subjective Patient Comments Patient Comments Pt reports shoulder is doing okay. DId a flipping motion in front of the other day adn got a pain PT-OP-F Manual Assessment Start: 08/08/23 08:07 Freq: Status: Active Protocol: Document 08/15/23 14:31 [facility] (Rec: 08/15/23 15:19 [facility] [id number]) Manual Assessments Soft Tissue Assessment Soft Tissue Mobility Assessment tenderness: L pecs, infra & supraspinatus, biceps, & biceps and supra tendon Joint Mobility Assessment Joint Mobility Assessment 1st rib elevation L PT-OP-J Posture/Palpation/Skin Start: 08/08/23 08:07 Freq: Status: Active Protocol: Document 08/15/23 14:31 [facility] (Rec: 08/15/23 15:19 [facility] [id number]) Posture Evaluation [facility] Postural Classification System [facility] Postural Classifications Posterior/Anterior Elbow Flexion Test 1 Comments Posture Comments L>R humerus ant in glenoid, ant tipped, abd, lat tipped L scap, inc kyphosis, mod fwd head PT-OP-K Range of Motion Start: 08/08/23 08:07 Freq: Status: Active Protocol: Document 09/17/23 09:48 [facility] (Rec: 09/17/23 10:37 [facility] [id number]) Shoulder Goniometric Range of Motion Shoulder Left Passive Testing Position Supine Flexion 129 Abduction 100 External Rotation at 45 degrees 63 Abduction Internal Rotation 59 Comments ir at 45 scap plane ;pain all Left Active Flexion 114 Extension 50 Abduction 72 External Rotation at 0 degrees Abduction 48 Internal Rotation Behind Back (text) S1 Comments pain PT-OP-L Special Tests Start: 08/08/23 08:07 Freq: Status: Active Protocol: Document 08/15/23 14:31 [facility] (Rec: 08/15/23 15:19 [facility] [id number]) Special Tests Shoulder Special Tests crank Test Results pos biceps loads Test Results pos [place] Test Test Results pain but pain in speeds also Speed's Biceps Test Results pain but pain in obriens also Car Henrik Impingement Test Results neg Neer Impingement Test Results pos Empty Can Test Results neg PT-OP-M Strength Start: 08/08/23 08:07 Freq: Status: Active Protocol: Document 09/17/23 09:48 [facility] (Rec: 09/17/23 10:37 [facility] [id number]) Shoulder Strength Shoulder Manual Muscle Testing Right Flexion 4+ Good+ Extension 5 Normal Abduction (C5) 4+ Good+ External Rotation 4+ Good+ Internal Rotation 4+ Good+ Comments pain w/IR Left Flexion 4- Good- Extension 4 Good Abduction (C5) 2+ Poor+ External Rotation 4- Good- Internal Rotation 4 Good PT-OP-Q Treatments Start: 08/08/23 08:07 Freq: Status: Active Protocol: Document 10/10/23 13:04 [facility] (Rec: 10/10/23 13:46 [facility] [id number]) Therapeutic Exercises Supine Exercises serratus punch Supine Exercise Name cues for all aspects of motion Side bilateral Equipment Used 3# Reps/Minutes 10 Comments chest press to punch to overhead flex Sidelying Exercises shoulder abduction Sidelying Exercise Name 120 deg Side left Equipment Used 1# Reps/Minutes 15 Sitting Exercises ER Sitting Exercise Name elbow on mat Side left Equipment Used 2# Reps/Minutes 15 pulleys Sitting Exercise Name flex, scaption,abd, IR in standing Side left Resistance AAROM Reps/Minutes 15 ea slow controlled Comments cues for Standing Exercises IR Standing Exercise Name 1. at side 2.90/90 Side left Equipment Used 1.green band w/towel 2. peach Reps/Minutes 15 ea ER Standing Exercise Name 1. at side 2.45 deg abd Side left Equipment Used 1.green band w/towel 2. peach Reps/Minutes 15 Comments feels very fatigued, cued maintain elbow 90 * Manual Therapy Treatment Soft Tissue Mobilization inf Body Location L lats, teres Mobilization Type Sustained Pressure Comments w/flex pec Body Location L Mobilization Type Rolling,Sustained Pressure Intensity/Depth Moderate Body Position Supine Comments w/ER Joint Mobilizations thoracic Comments UPA T1-3 L FM AC Joint L clavicle ant fM w/abd GH Comments L post FM w/Habd and IR; inf w /abd and flex FM PT-OP-R Modalities Start: 08/08/23 08:07 Freq: Status: Active Protocol: Document 10/01/23 13:57 [facility] (Rec: 10/01/23 14:35 [facility] [id number]) Hot Pack/Cold Pack Treatment Cold Pack Location L shoulder Patient Position Supine Patient Tolerance Good PT-OP-T Assessment and Plan Start: 08/08/23 08:07 Freq: Status: Active Protocol: Document 10/10/23 13:04 [facility] (Rec: 10/10/23 13:46 [facility] [id number]) Physical Therapy Assessment Goals activity Short Term Goal (STG) Pt will be able to dress w/o inc pain 09/16-pain about every other day -putting shirt/jacket on/ off STG Duration 10/08/23 Usp Goal (LTG) pt will be able to do all work tasks and home tasks w/o accommodation or inc pain in LUE 09/16-uses RUE to reach out- avoid LUE still; pain w/ chores LTG Duration 11/07/23 strength Short Term Goal (STG) Pt will be indep w/HEP STG Duration achieved-advancing as able Usp Goal (LTG) Pt will score at least 4+/5 on all LUE MMT and 09/10 EFT in order to show improved stabiltiy to allow her to do her work tasks. 09/16-improved LTG Duration 11/07/23 ROM Short Term Goal (STG) Pt will improve flex and abd of L shoulder by at least 10 deg ea. STG Duration achieved 09/16 Usp Goal (LTG) Pt will have full L AROM of L shoulder w/o inc pain in order to allow greater ease w/ADLs LTG Duration 11/07/23 Quick dash Impairment 54.4 Short Term Goal (STG) Pt will improve quick dash score to now greater than 34 to show improved functional ability w/L shoulder. 09/16-no change STG Duration 10/08/23 Usp Goal (LTG) Pt will improve quick dash score to now greater than 4 to show improved functional ability w/L shoulder. LTG Duration 11/07/23 Assessment Summary Assessment Pt tolerated inc challenge w/ exercises today and did well with mobilizations w/gains in abd, flex and 90/90 ER. SHe reuqires cues throughout exercises for performance Physical Therapy Plan Frequency and Duration Frequency of Treatment 2x/Week Duration of treatment (weeks) 12 Plan of Care Start Date 08/15/23 Plan of Care End Date 11/07/23 Next Visit Focus/Plan Next Note Type Treatment Note Next Visit Plan cont to advance strengthening and ROM to full manual to work to improve shoulder mobility
--- NOTE | 2023-10-15 09:46 | PT.OTN ---
Current Diagnoses Abnormal posture (10/15/23) Weakness (10/15/23) Superior glenoid labrum lesion of left shoulder, subsequent encounter (10/15/23) Strain of unspecified muscle, fascia and tendon at shoulder and upper arm level, left arm, initial encounter (10/15/23) Physical Therapy Treatment Note PT-OP-A Visit Information Start: 08/08/23 08:07 Freq: Status: Active Protocol: Document 10/15/23 09:03 [facility] (Rec: 10/15/23 09:46 [facility] [id number]) Out-Patient Physical Therapy Visit Information Visit Information Visit Type Treatment Note Visit Start Time 09:03 Visit Stop Time 09:53 Visit Number Number of PHARMACY GRAD INTERN Visits 0 PT-OP-B Current Condition Start: 08/08/23 08:07 Freq: Status: Active Protocol: Document 08/15/23 14:31 [facility] (Rec: 08/15/23 15:19 [facility] [id number]) Current Condition History of Current Condition Onset Date Jun 11, 2023 Current Complaints L brachium History of Current Condition Pt fell carrying mail bins that broke her fall and felt a sharp pain at that time. It went away but now when she rolls certain ways, or reach w /her arm. She is seeing Dr. Larios. Per pt, w/MRI there is tendonitis, arthritis present and not recommending surgery. A few weeks ago, she reached to grab a cup that was falling and it was sharp pain. She feels like she is losing upper body strength and feels like she is losing ROM and strength B as she is avoiding motion. denies numbness or tingling. pain is sharp w/movement then has a lasting achiness. 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 Pain has not gotten better and in someways has gotten worse w/ the sharp pains. Treatment Goals Patient/Caregiver Goals be able to use arm fully w/o pain PT-OP-C Subjective Start: 08/08/23 08:07 Freq: Status: Active Protocol: Document 10/15/23 09:03 [facility] (Rec: 10/15/23 09:46 [facility] [id number]) OP-PT Subjective Patient Comments Patient Comments Pt feels like shoulder is making a little improvement. Patient Reported Progress Improving PT-OP-F Manual Assessment Start: 08/08/23 08:07 Freq: Status: Active Protocol: Document 08/15/23 14:31 [facility] (Rec: 08/15/23 15:19 [facility] [id number]) Manual Assessments Soft Tissue Assessment Soft Tissue Mobility Assessment tenderness: L pecs, infra & supraspinatus, biceps, & biceps and supra tendon Joint Mobility Assessment Joint Mobility Assessment 1st rib elevation L PT-OP-J Posture/Palpation/Skin Start: 08/08/23 08:07 Freq: Status: Active Protocol: Document 08/15/23 14:31 [facility] (Rec: 08/15/23 15:19 [facility] [id number]) Posture Evaluation [facility] Postural Classification System [facility] Postural Classifications Posterior/Anterior Elbow Flexion Test 1 Comments Posture Comments L>R humerus ant in glenoid, ant tipped, abd, lat tipped L scap, inc kyphosis, mod fwd head PT-OP-K Range of Motion Start: 08/08/23 08:07 Freq: Status: Active Protocol: Document 09/17/23 09:48 [facility] (Rec: 09/17/23 10:37 [facility] [id number]) Shoulder Goniometric Range of Motion Shoulder Left Passive Testing Position Supine Flexion 129 Abduction 100 External Rotation at 45 degrees 63 Abduction Internal Rotation 59 Comments ir at 45 scap plane ;pain all Left Active Flexion 114 Extension 50 Abduction 72 External Rotation at 0 degrees Abduction 48 Internal Rotation Behind Back (text) S1 Comments pain PT-OP-L Special Tests Start: 08/08/23 08:07 Freq: Status: Active Protocol: Document 08/15/23 14:31 [facility] (Rec: 08/15/23 15:19 [facility] [id number]) Special Tests Shoulder Special Tests crank Test Results pos biceps loads Test Results pos Rudy Test Test Results pain but pain in speeds also Speed's Biceps Test Results pain but pain in obriens also Car Henrik Impingement Test Results neg Neer Impingement Test Results pos Empty Can Test Results neg PT-OP-M Strength Start: 08/08/23 08:07 Freq: Status: Active Protocol: Document 09/17/23 09:48 [facility] (Rec: 09/17/23 10:37 [facility] [id number]) Shoulder Strength Shoulder Manual Muscle Testing Right Flexion 4+ Good+ Extension 5 Normal Abduction (C5) 4+ Good+ External Rotation 4+ Good+ Internal Rotation 4+ Good+ Comments pain w/IR Left Flexion 4- Good- Extension 4 Good Abduction (C5) 2+ Poor+ External Rotation 4- Good- Internal Rotation 4 Good PT-OP-Q Treatments Start: 08/08/23 08:07 Freq: Status: Active Protocol: Document 10/15/23 09:03 [facility] (Rec: 10/15/23 09:46 [facility] [id number]) Therapeutic Exercises Supine Exercises serratus punch Supine Exercise Name cues for all aspects of motion Side bilateral Equipment Used 3# Reps/Minutes 10 Comments chest press to punch to overhead flex Prone Exercises ext Side left Equipment Used 2# Reps/Minutes 15 scaption Side left Reps/Minutes 15 Habd Side left Reps/Minutes 15 Sidelying Exercises shoulder abduction Sidelying Exercise Name 120 deg Side left Equipment Used 1# Reps/Minutes 15 Sitting Exercises pulleys Sitting Exercise Name flex, scaption,abd, IR in standing Side left Resistance AAROM Reps/Minutes 15 ea slow controlled Comments cues for Standing Exercises IR Standing Exercise Name 1. at side 2.90/90 Side left Equipment Used 1.green band w/towel 2. peach Reps/Minutes 15 ea ER Standing Exercise Name 1. at side 2.45 deg abd Side left Equipment Used 1.green band w/towel 2. peach Reps/Minutes 15 Comments feels very fatigued, cued maintain elbow 90 * Manual Therapy Treatment Soft Tissue Mobilization pec Body Location L Mobilization Type Rolling,Sustained Pressure Intensity/Depth Moderate Body Position Supine Comments w/ER Joint Mobilizations AC Joint L clavicle ant fM w/abd GH Comments L post FM w/Habd and IR; inf & distraction FM w/abd and flex FM PT-OP-R Modalities Start: 08/08/23 08:07 Freq: Status: Active Protocol: Document 10/15/23 09:03 [facility] (Rec: 10/15/23 09:46 [facility] [id number]) Hot Pack/Cold Pack Treatment Cold Pack Location L shoulder Patient Position Supine Patient Tolerance Good PT-OP-T Assessment and Plan Start: 08/08/23 08:07 Freq: Status: Active Protocol: Document 10/15/23 09:03 [facility] (Rec: 10/15/23 09:46 [facility] [id number]) Physical Therapy Assessment Goals activity Short Term Goal (STG) Pt will be able to dress w/o inc pain 09/16-pain about every other day -putting shirt/jacket on/ off STG Duration 10/08/23 Awning Hanger Helper Goal (LTG) pt will be able to do all work tasks and home tasks w/o accommodation or inc pain in LUE 09/16-uses RUE to reach out- avoid LUE still; pain w/ chores LTG Duration 11/07/23 strength Short Term Goal (STG) Pt will be indep w/HEP STG Duration achieved-advancing as able [facility] Goal (LTG) Pt will score at least 4+/5 on all LUE MMT and 09/10 EFT in order to show improved stabiltiy to allow her to do her work tasks. 09/16-improved LTG Duration 11/07/23 ROM Short Term Goal (STG) Pt will improve flex and abd of L shoulder by at least 10 deg ea. STG Duration achieved 09/16 Awning Hanger Helper Goal (LTG) Pt will have full L AROM of L shoulder w/o inc pain in order to allow greater ease w/ADLs LTG Duration 11/07/23 Quick dash Impairment 54.4 Short Term Goal (STG) Pt will improve quick dash score to now greater than 34 to show improved functional ability w/L shoulder. 09/16-no change STG Duration 10/08/23 Awning Hanger Helper Goal (LTG) Pt will improve quick dash score to now greater than 4 to show improved functional ability w/L shoulder. LTG Duration 11/07/23 Assessment Summary Assessment Pt cont to inc in ROM ability but does still have some limit on L end range mobility and dec strength,but is gradually improving. Cues for scap needed in prone. DID show limited scaption ROM in this position Physical Therapy Plan Frequency and Duration Frequency of Treatment 2x/Week Duration of treatment (weeks) 12 Plan of Care Start Date 08/15/23 Plan of Care End Date 11/07/23 Next Visit Focus/Plan Next Note Type Treatment Note Next Visit Plan cont to advance strengthening and ROM to full manual to work to improve shoulder mobility
--- NOTE | 2023-10-17 09:51 | PT.OTN ---
Current Diagnoses Abnormal posture (10/17/23) Weakness (10/17/23) Superior glenoid labrum lesion of left shoulder, subsequent encounter (10/17/23) Strain of unspecified muscle, fascia and tendon at shoulder and upper arm level, left arm, initial encounter (10/17/23) Physical Therapy Treatment Note PT-OP-A Visit Information Start: 08/08/23 08:07 Freq: Status: Active Protocol: Document 10/17/23 09:09 [facility] (Rec: 10/17/23 09:50 [facility] [id number]) Out-Patient Physical Therapy Visit Information Visit Information Visit Type Treatment Note Visit Start Time 09:05 Visit Stop Time 09:55 Visit Number Number of DIRECTOR OF PHYSIOTHERAPY SERVICES Visits 0 PT-OP-B Current Condition Start: 08/08/23 08:07 Freq: Status: Active Protocol: Document 08/15/23 14:31 [facility] (Rec: 08/15/23 15:19 [facility] [id number]) Current Condition History of Current Condition Onset Date Jun 11, 2023 Current Complaints L brachium History of Current Condition Pt fell carrying mail bins that broke her fall and felt a sharp pain at that time. It went away but now when she rolls certain ways, or reach w /her arm. She is seeing Dr. Larios. Per pt, w/MRI there is tendonitis, arthritis present and not recommending surgery. A few weeks ago, she reached to grab a cup that was falling and it was sharp pain. She feels like she is losing upper body strength and feels like she is losing ROM and strength B as she is avoiding motion. denies numbness or tingling. pain is sharp w/movement then has a lasting achiness. 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 Pain has not gotten better and in someways has gotten worse w/ the sharp pains. Treatment Goals Patient/Caregiver Goals be able to use arm fully w/o pain PT-OP-C Subjective Start: 08/08/23 08:07 Freq: Status: Active Protocol: Document 10/17/23 09:09 [facility] (Rec: 10/17/23 09:50 [facility] [id number]) OP-PT Subjective Patient Comments Patient Comments Pt reports last night shoudler was achey and when woke as still a little achy PT-OP-F Manual Assessment Start: 08/08/23 08:07 Freq: Status: Active Protocol: Document 08/15/23 14:31 [facility] (Rec: 08/15/23 15:19 [facility] [id number]) Manual Assessments Soft Tissue Assessment Soft Tissue Mobility Assessment tenderness: L pecs, infra & supraspinatus, biceps, & biceps and supra tendon Joint Mobility Assessment Joint Mobility Assessment 1st rib elevation L PT-OP-J Posture/Palpation/Skin Start: 08/08/23 08:07 Freq: Status: Active Protocol: Document 08/15/23 14:31 [facility] (Rec: 08/15/23 15:19 [facility] [id number]) Posture Evaluation [facility] Postural Classification System [facility] Postural Classifications Posterior/Anterior Elbow Flexion Test 1 Comments Posture Comments L>R humerus ant in glenoid, ant tipped, abd, lat tipped L scap, inc kyphosis, mod fwd head PT-OP-K Range of Motion Start: 08/08/23 08:07 Freq: Status: Active Protocol: Document 09/17/23 09:48 [facility] (Rec: 09/17/23 10:37 [facility] [id number]) Shoulder Goniometric Range of Motion Shoulder Left Passive Testing Position Supine Flexion 129 Abduction 100 External Rotation at 45 degrees 63 Abduction Internal Rotation 59 Comments ir at 45 scap plane ;pain all Left Active Flexion 114 Extension 50 Abduction 72 External Rotation at 0 degrees Abduction 48 Internal Rotation Behind Back (text) S1 Comments pain PT-OP-L Special Tests Start: 08/08/23 08:07 Freq: Status: Active Protocol: Document 08/15/23 14:31 [facility] (Rec: 08/15/23 15:19 [facility] [id number]) Special Tests Shoulder Special Tests crank Test Results pos biceps loads Test Results pos Skippers Test Test Results pain but pain in speeds also Speed's Biceps Test Results pain but pain in obriens also Car Henrik Impingement Test Results neg Neer Impingement Test Results pos Empty Can Test Results neg PT-OP-M Strength Start: 08/08/23 08:07 Freq: Status: Active Protocol: Document 09/17/23 09:48 [facility] (Rec: 09/17/23 10:37 [facility] [id number]) Shoulder Strength Shoulder Manual Muscle Testing Right Flexion 4+ Good+ Extension 5 Normal Abduction (C5) 4+ Good+ External Rotation 4+ Good+ Internal Rotation 4+ Good+ Comments pain w/IR Left Flexion 4- Good- Extension 4 Good Abduction (C5) 2+ Poor+ External Rotation 4- Good- Internal Rotation 4 Good PT-OP-Q Treatments Start: 08/08/23 08:07 Freq: Status: Active Protocol: Document 10/17/23 09:09 [facility] (Rec: 10/17/23 09:50 [facility] [id number]) Therapeutic Exercises Prone Exercises ext Side left Equipment Used 2# Reps/Minutes 15 scaption Side left Reps/Minutes 15 Habd Side left Reps/Minutes 15 Sidelying Exercises shoulder abduction Sidelying Exercise Name 120 deg Side left Equipment Used 2# Reps/Minutes 15 Sitting Exercises pulleys Sitting Exercise Name flex, scaption,abd, IR in standing Side left Resistance AAROM Reps/Minutes 15 ea slow controlled Comments cues for Standing Exercises flex Standing Exercise Name chess press to overhead press Side left Reps/Minutes 15 IR Standing Exercise Name 90/90 Side left Equipment Used peach Reps/Minutes 15 ER Standing Exercise Name 70 deg abd Side left Equipment Used peach Reps/Minutes 15 Comments cues fro arm position Manual Therapy Treatment Soft Tissue Mobilization inf Body Location L lats, teres & subscap Mobilization Type Sustained Pressure Comments w/flex pec Body Location L Mobilization Type Rolling,Sustained Pressure Intensity/Depth Moderate Body Position Supine Comments w/ER Joint Mobilizations thoracic Comments UPA T1-3 L FM w/flex AC Joint L clavicle ant fM w/abd GH Comments L post FM w/ IR; inf & distraction FM w/abd and flex FM PT-OP-R Modalities Start: 08/08/23 08:07 Freq: Status: Active Protocol: Document 10/17/23 09:09 [facility] (Rec: 10/17/23 09:50 [facility] [id number]) Hot Pack/Cold Pack Treatment Cold Pack Location L shoulder Patient Position Supine Patient Tolerance Good PT-OP-T Assessment and Plan Start: 08/08/23 08:07 Freq: Status: Active Protocol: Document 10/17/23 09:09 [facility] (Rec: 10/17/23 09:50 [facility] [id number]) Physical Therapy Assessment Goals activity Short Term Goal (STG) Pt will be able to dress w/o inc pain 09/16-pain about every other day -putting shirt/jacket on/ off STG Duration 10/08/23 Snf Goal (LTG) pt will be able to do all work tasks and home tasks w/o accommodation or inc pain in LUE 09/16-uses RUE to reach out- avoid LUE still; pain w/ chores LTG Duration 11/07/23 strength Short Term Goal (STG) Pt will be indep w/HEP STG Duration achieved-advancing as able Shift Coordinator Goal (LTG) Pt will score at least 4+/5 on all LUE MMT and 09/10 EFT in order to show improved stabiltiy to allow her to do her work tasks. 09/16-improved LTG Duration 11/07/23 ROM Short Term Goal (STG) Pt will improve flex and abd of L shoulder by at least 10 deg ea. STG Duration achieved 09/16 Snf Goal (LTG) Pt will have full L AROM of L shoulder w/o inc pain in order to allow greater ease w/ADLs LTG Duration 11/07/23 Quick dash Impairment 54.4 Short Term Goal (STG) Pt will improve quick dash score to now greater than 34 to show improved functional ability w/L shoulder. 09/16-no change STG Duration 10/08/23 Shift Coordinator Goal (LTG) Pt will improve quick dash score to now greater than 4 to show improved functional ability w/L shoulder. LTG Duration 11/07/23 Assessment Summary Assessment Imprvoign AROM and PROM of L shoulder but still limited end range w/tightness that improves w/mobs. cues w/ exercises for form and cues fro scap use Physical Therapy Plan Frequency and Duration Frequency of Treatment 2x/Week Duration of treatment (weeks) 12 Plan of Care Start Date 08/15/23 Plan of Care End Date 11/07/23 Next Visit Focus/Plan Next Note Type Treatment Note Next Visit Plan cont to advance strengthening and ROM to full manual to work to improve shoulder mobility
--- NOTE | 2023-10-22 08:19 | PT.OTN ---
Current Diagnoses Abnormal posture (10/22/23) Weakness (10/22/23) Superior glenoid labrum lesion of left shoulder, subsequent encounter (10/22/23) Strain of unspecified muscle, fascia and tendon at shoulder and upper arm level, left arm, initial encounter (10/22/23) Physical Therapy Treatment Note PT-OP-A Visit Information Start: 08/08/23 08:07 Freq: Status: Active Protocol: Document 10/22/23 07:30 [facility] (Rec: 10/22/23 08:19 [facility] [id number]) Out-Patient Physical Therapy Visit Information Visit Information Visit Type Treatment Note Visit Start Time 07:31 Visit Stop Time 08:23 Visit Number Number of IRRIGATION SERVICE TECHNICIAN Visits 0 PT-OP-B Current Condition Start: 08/08/23 08:07 Freq: Status: Active Protocol: Document 08/15/23 14:31 [facility] (Rec: 08/15/23 15:19 [facility] [id number]) Current Condition History of Current Condition Onset Date Jun 11, 2023 Current Complaints L brachium History of Current Condition Pt fell carrying mail bins that broke her fall and felt a sharp pain at that time. It went away but now when she rolls certain ways, or reach w /her arm. She is seeing Dr. Larios. Per pt, w/MRI there is tendonitis, arthritis present and not recommending surgery. A few weeks ago, she reached to grab a cup that was falling and it was sharp pain. She feels like she is losing upper body strength and feels like she is losing ROM and strength B as she is avoiding motion. denies numbness or tingling. pain is sharp w/movement then has a lasting achiness. 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 Pain has not gotten better and in someways has gotten worse w/ the sharp pains. Treatment Goals Patient/Caregiver Goals be able to use arm fully w/o pain PT-OP-C Subjective Start: 08/08/23 08:07 Freq: Status: Active Protocol: Document 10/22/23 07:30 [facility] (Rec: 10/22/23 08:19 [facility] [id number]) OP-PT Subjective Patient Comments Patient Comments Pt reports L shoulder has been achey and notes R knee and hip also achey. She reached across bed fast this Am and it was painful but not as bad as it used to be. PT-OP-F Manual Assessment Start: 08/08/23 08:07 Freq: Status: Active Protocol: Document 08/15/23 14:31 [facility] (Rec: 08/15/23 15:19 [facility] [id number]) Manual Assessments Soft Tissue Assessment Soft Tissue Mobility Assessment tenderness: L pecs, infra & supraspinatus, biceps, & biceps and supra tendon Joint Mobility Assessment Joint Mobility Assessment 1st rib elevation L PT-OP-J Posture/Palpation/Skin Start: 08/08/23 08:07 Freq: Status: Active Protocol: Document 08/15/23 14:31 [facility] (Rec: 08/15/23 15:19 [facility] [id number]) Posture Evaluation [facility] Postural Classification System [facility] Postural Classifications Posterior/Anterior Elbow Flexion Test 1 Comments Posture Comments L>R humerus ant in glenoid, ant tipped, abd, lat tipped L scap, inc kyphosis, mod fwd head PT-OP-K Range of Motion Start: 08/08/23 08:07 Freq: Status: Active Protocol: Document 09/17/23 09:48 [facility] (Rec: 09/17/23 10:37 [facility] [id number]) Shoulder Goniometric Range of Motion Shoulder Left Passive Testing Position Supine Flexion 129 Abduction 100 External Rotation at 45 degrees 63 Abduction Internal Rotation 59 Comments ir at 45 scap plane ;pain all Left Active Flexion 114 Extension 50 Abduction 72 External Rotation at 0 degrees Abduction 48 Internal Rotation Behind Back (text) S1 Comments pain PT-OP-L Special Tests Start: 08/08/23 08:07 Freq: Status: Active Protocol: Document 08/15/23 14:31 [facility] (Rec: 08/15/23 15:19 [facility] [id number]) Special Tests Shoulder Special Tests crank Test Results pos biceps loads Test Results pos Floyd Test Test Results pain but pain in speeds also Speed's Biceps Test Results pain but pain in obriens also Car Henrik Impingement Test Results neg Neer Impingement Test Results pos Empty Can Test Results neg PT-OP-M Strength Start: 08/08/23 08:07 Freq: Status: Active Protocol: Document 09/17/23 09:48 [facility] (Rec: 09/17/23 10:37 [facility] [id number]) Shoulder Strength Shoulder Manual Muscle Testing Right Flexion 4+ Good+ Extension 5 Normal Abduction (C5) 4+ Good+ External Rotation 4+ Good+ Internal Rotation 4+ Good+ Comments pain w/IR Left Flexion 4- Good- Extension 4 Good Abduction (C5) 2+ Poor+ External Rotation 4- Good- Internal Rotation 4 Good PT-OP-Q Treatments Start: 08/08/23 08:07 Freq: Status: Active Protocol: Document 10/22/23 07:30 [facility] (Rec: 10/22/23 08:19 [facility] [id number]) Gym Equipment Cable Column (Body Solid) Lat Pull Down Resistance 3 Reps/Time 10 Therapeutic Exercises Supine Exercises serratus punch Supine Exercise Name cues for all aspects of motion Side bilateral Equipment Used 3# Reps/Minutes 10 Comments chest press to punch to overhead flex Prone Exercises ext Side left Equipment Used 2# Reps/Minutes 15 scaption Side left Reps/Minutes 15 Habd Side left Equipment Used 2# Reps/Minutes 15 Sidelying Exercises shoulder abduction Sidelying Exercise Name 120 deg Side left Equipment Used 2# Reps/Minutes 15 Sitting Exercises pulleys Sitting Exercise Name flex, scaption,abd, IR in standing Side left Resistance AAROM Reps/Minutes 15 ea slow controlled Comments cues for Standing Exercises flex Standing Exercise Name chess press to overhead press Side left Reps/Minutes 15 IR Standing Exercise Name 90/90 Side left Equipment Used peach Reps/Minutes 15 ER Standing Exercise Name 70 deg abd Side left Equipment Used peach Reps/Minutes 15 Comments cues fro arm position Manual Therapy Treatment Soft Tissue Mobilization pec Body Location L Mobilization Type Rolling,Sustained Pressure Intensity/Depth Moderate Body Position Supine Comments w/ER Joint Mobilizations AC Joint L clavicle ant fM w/abd GH Comments L post translation FM, lat gappign FM, distraction FM, post w/IR FM PT-OP-R Modalities Start: 08/08/23 08:07 Freq: Status: Active Protocol: Document 10/22/23 07:30 [facility] (Rec: 10/22/23 08:19 [facility] [id number]) Hot Pack/Cold Pack Treatment Cold Pack Location L shoulder Patient Position Supine Patient Tolerance Good PT-OP-T Assessment and Plan Start: 08/08/23 08:07 Freq: Status: Active Protocol: Document 10/22/23 07:30 [facility] (Rec: 10/22/23 08:19 [facility] [id number]) Physical Therapy Assessment Goals activity Short Term Goal (STG) Pt will be able to dress w/o inc pain 09/16-pain about every other day -putting shirt/jacket on/ off STG Duration 10/08/23 Assisted Goal (LTG) pt will be able to do all work tasks and home tasks w/o accommodation or inc pain in LUE 09/16-uses RUE to reach out- avoid LUE still; pain w/ chores LTG Duration 11/07/23 strength Short Term Goal (STG) Pt will be indep w/HEP STG Duration achieved-advancing as able Chief Pharmacist Goal (LTG) Pt will score at least 4+/5 on all LUE MMT and 09/10 EFT in order to show improved stabiltiy to allow her to do her work tasks. 09/16-improved LTG Duration 11/07/23 ROM Short Term Goal (STG) Pt will improve flex and abd of L shoulder by at least 10 deg ea. STG Duration achieved 09/16 Assisted Goal (LTG) Pt will have full L AROM of L shoulder w/o inc pain in order to allow greater ease w/ADLs LTG Duration 11/07/23 Quick dash Impairment 54.4 Short Term Goal (STG) Pt will improve quick dash score to now greater than 34 to show improved functional ability w/L shoulder. 09/16-no change STG Duration 10/08/23 Assisted Goal (LTG) Pt will improve quick dash score to now greater than 4 to show improved functional ability w/L shoulder. LTG Duration 11/07/23 Assessment Summary Assessment Pt cont to improve w/exercises and tolerates inc resistance. Requires cues througout for her form and for stretching at end range. Physical Therapy Plan Frequency and Duration Frequency of Treatment 2x/Week Duration of treatment (weeks) 12 Plan of Care Start Date 08/15/23 Plan of Care End Date 11/07/23 Next Visit Focus/Plan Next Note Type Treatment Note Next Visit Plan cont to advance strengthening and ROM to full manual to work to improve shoulder mobility
--- NOTE | 2023-10-24 09:49 | PT.OTN ---
Current Diagnoses Abnormal posture (10/24/23) Weakness (10/24/23) Superior glenoid labrum lesion of left shoulder, subsequent encounter (10/24/23) Strain of unspecified muscle, fascia and tendon at shoulder and upper arm level, left arm, initial encounter (10/24/23) Physical Therapy Treatment Note PT-OP-A Visit Information Start: 08/08/23 08:07 Freq: Status: Active Protocol: Document 10/24/23 09:06 SP (Rec: 10/24/23 09:49 SP [id number]) Out-Patient Physical Therapy Visit Information Visit Information Visit Type Treatment Note Visit Note Pt 6 min late for appt 12th visit post PN, Visit Start Time 09:06 Visit Stop Time 09:49 Visit Number Number of REGRINDER OPERATOR Visits 0 PT-OP-B Current Condition Start: 08/08/23 08:07 Freq: Status: Active Protocol: Document 08/15/23 14:31 [facility] (Rec: 08/15/23 15:19 [facility] [id number]) Current Condition History of Current Condition Onset Date Jun 11, 2023 Current Complaints L brachium History of Current Condition Pt fell carrying mail bins that broke her fall and felt a sharp pain at that time. It went away but now when she rolls certain ways, or reach w /her arm. She is seeing Dr. Larios. Per pt, w/MRI there is tendonitis, arthritis present and not recommending surgery. A few weeks ago, she reached to grab a cup that was falling and it was sharp pain. She feels like she is losing upper body strength and feels like she is losing ROM and strength B as she is avoiding motion. denies numbness or tingling. pain is sharp w/movement then has a lasting achiness. 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 Pain has not gotten better and in someways has gotten worse w/ the sharp pains. Treatment Goals Patient/Caregiver Goals be able to use arm fully w/o pain PT-OP-C Subjective Start: 08/08/23 08:07 Freq: Status: Active Protocol: Document 10/24/23 09:06 SP (Rec: 10/24/23 09:49 SP [id number]) OP-PT Subjective Patient Comments Patient Comments Pt reports compliant with HEP. May need to see physician to get more approved appts with PT, wants to get back to full ROM. PT-OP-F Manual Assessment Start: 08/08/23 08:07 Freq: Status: Active Protocol: Document 08/15/23 14:31 [facility] (Rec: 08/15/23 15:19 [facility] [id number]) Manual Assessments Soft Tissue Assessment Soft Tissue Mobility Assessment tenderness: L pecs, infra & supraspinatus, biceps, & biceps and supra tendon Joint Mobility Assessment Joint Mobility Assessment 1st rib elevation L PT-OP-J Posture/Palpation/Skin Start: 08/08/23 08:07 Freq: Status: Active Protocol: Document 08/15/23 14:31 [facility] (Rec: 08/15/23 15:19 [facility] [id number]) Posture Evaluation [facility] Postural Classification System [facility] Postural Classifications Posterior/Anterior Elbow Flexion Test 1 Comments Posture Comments L>R humerus ant in glenoid, ant tipped, abd, lat tipped L scap, inc kyphosis, mod fwd head PT-OP-K Range of Motion Start: 08/08/23 08:07 Freq: Status: Active Protocol: Document 09/17/23 09:48 [facility] (Rec: 09/17/23 10:37 [facility] [id number]) Shoulder Goniometric Range of Motion Shoulder Left Passive Testing Position Supine Flexion 129 Abduction 100 External Rotation at 45 degrees 63 Abduction Internal Rotation 59 Comments ir at 45 scap plane ;pain all Left Active Flexion 114 Extension 50 Abduction 72 External Rotation at 0 degrees Abduction 48 Internal Rotation Behind Back (text) S1 Comments pain PT-OP-L Special Tests Start: 08/08/23 08:07 Freq: Status: Active Protocol: Document 08/15/23 14:31 [facility] (Rec: 08/15/23 15:19 [facility] [id number]) Special Tests Shoulder Special Tests crank Test Results pos biceps loads Test Results pos [place] Test Test Results pain but pain in speeds also Speed's Biceps Test Results pain but pain in obriens also Car Henrik Impingement Test Results neg Neer Impingement Test Results pos Empty Can Test Results neg PT-OP-M Strength Start: 08/08/23 08:07 Freq: Status: Active Protocol: Document 09/17/23 09:48 [facility] (Rec: 09/17/23 10:37 [facility] [id number]) Shoulder Strength Shoulder Manual Muscle Testing Right Flexion 4+ Good+ Extension 5 Normal Abduction (C5) 4+ Good+ External Rotation 4+ Good+ Internal Rotation 4+ Good+ Comments pain w/IR Left Flexion 4- Good- Extension 4 Good Abduction (C5) 2+ Poor+ External Rotation 4- Good- Internal Rotation 4 Good PT-OP-Q Treatments Start: 08/08/23 08:07 Freq: Status: Active Protocol: Document 10/24/23 09:06 SP (Rec: 10/24/23 09:49 SP [id number]) Gym Equipment Cable Column (Body Solid) Lat Pull Down Details over hand Resistance 3 Reps/Time 10 Therapeutic Exercises Sidelying Exercises shoulder abduction Sidelying Exercise Name 120 deg Side left Equipment Used AROM, didn't tolerate increase resistance Reps/Minutes 15 Comments Max tactile fac scapular Up rot, depression ABD, FF Sidelying Exercise Name FF 130 deg Side left Resistance AROM Comments tactile fac scapular Up rot, depression Sitting Exercises eccentric FF & scaption Sitting Exercise Name retrialed Side left Resistance TB #2 PTB Equipment Used mesh chair Reps/Minutes x8 each Comments cued slow slight SP into AAROM pnfree Standing Exercises flex Standing Exercise Name chess press to overhead press Side left Equipment Used front mirror, back to wall Reps/Minutes 15 Comments 131>135 deg post manual IR Standing Exercise Name 90 abd/ elbow 90 deg Side left Resistance peach TB Reps/Minutes 15 Comments cues for ER Standing Exercise Name 70 deg abd /c con IR/ eccentric ER Side left Resistance peach TB Reps/Minutes 15 Comments cues for arm position, shld depression relaxed more Manual Therapy Treatment Soft Tissue Mobilization biceps Body Location L Mobilization Type Rolling Intensity/Depth Moderate Body Position seated Comments humeral IR/ER at side, FF punching motion pec Body Location L Mobilization Type Rolling,Sustained Pressure Intensity/Depth Moderate Body Position Sitting Comments humeral IR/ER at side, FF punching motion Joint Mobilizations GH Comments L post translation FM, L inf / c FM R SL abd, FF PT-OP-R Modalities Start: 08/08/23 08:07 Freq: Status: Active Protocol: Document 10/22/23 07:30 [facility] (Rec: 10/22/23 08:19 [facility] [id number]) Hot Pack/Cold Pack Treatment Cold Pack Location L shoulder Patient Position Supine Patient Tolerance Good PT-OP-T Assessment and Plan Start: 08/08/23 08:07 Freq: Status: Active Protocol: Document 10/24/23 09:06 SP (Rec: 10/24/23 09:49 SP [id number]) Physical Therapy Assessment Goals activity Short Term Goal (STG) Pt will be able to dress w/o inc pain 09/16-pain about every other day -putting shirt/jacket on/ off STG Duration 10/08/23 Varnishing Unit Tool Setter Goal (LTG) pt will be able to do all work tasks and home tasks w/o accommodation or inc pain in LUE 09/16-uses RUE to reach out- avoid LUE still; pain w/ chores LTG Duration 11/07/23 strength Short Term Goal (STG) Pt will be indep w/HEP STG Duration achieved-advancing as able Skilled Nursing Goal (LTG) Pt will score at least 4+/5 on all LUE MMT and 09/10 EFT in order to show improved stabiltiy to allow her to do her work tasks. 09/16-improved LTG Duration 11/07/23 ROM Short Term Goal (STG) Pt will improve flex and abd of L shoulder by at least 10 deg ea. STG Duration achieved 09/16 Skilled Nursing Goal (LTG) Pt will have full L AROM of L shoulder w/o inc pain in order to allow greater ease w/ADLs LTG Duration 11/07/23 Quick dash Impairment 54.4 Short Term Goal (STG) Pt will improve quick dash score to now greater than 34 to show improved functional ability w/L shoulder. 09/16-no change STG Duration 10/08/23 Skilled Nursing Goal (LTG) Pt will improve quick dash score to now greater than 4 to show improved functional ability w/L shoulder. LTG Duration 11/07/23 Assessment Summary Assessment Pt requires cues for redirection to task at hand, hyperverbal. Improves scapular stability and form with verbal and tactile cuing. Slight increased ROM post manual throughout and with activity. Tolerates resistance . Physical Therapy Plan Frequency and Duration Frequency of Treatment 2x/Week Duration of treatment (weeks) 12 Plan of Care Start Date 08/15/23 Plan of Care End Date 11/07/23 Therapeutic Interventions Therapeutic Interventions Gait Training,Home Exercise Program,Joint Mobilizations, Manual Therapy,Neuromuscular Re-education,Orthotic/ Prosthetic Management,Patient/ Caregiver Education,Self-Care/ Home Management,Soft Tissue Mobilization,Taping, Therapeutic Activities, Therapeutic Exercises Modalities Cold Pack/Ice Massage,Electric Stimulation,Hot Packs, Infrared Therapy,Iontophoresis ,Traction- Mechanical, Ultrasound Other Therapeutic Interventions dexamethasone ionto Next Visit Focus/Plan Next Note Type Progress Note Next Visit Plan 13th visit next and need PN, check how many approved visits. POC: cont to advance strengthening and ROM to full, quick fwd reach wish to return to manual to work to improve shoulder mobility
--- NOTE | 2023-10-29 09:49 | PT.OTN ---
Current Diagnoses Abnormal posture (10/29/23) Weakness (10/29/23) Superior glenoid labrum lesion of left shoulder, subsequent encounter (10/29/23) Strain of unspecified muscle, fascia and tendon at shoulder and upper arm level, left arm, initial encounter (10/29/23) Physical Therapy Treatment Note PT-OP-A Visit Information Start: 08/08/23 08:07 Freq: Status: Active Protocol: Document 10/29/23 09:04 [facility] (Rec: 10/29/23 09:48 [facility] [id number]) Out-Patient Physical Therapy Visit Information Visit Information Visit Type Progress Note Visit Start Time 09:05 Visit Stop Time 09:55 Visit Number Number of OXYACETYLENE BURNER Visits 0 PT-OP-B Current Condition Start: 08/08/23 08:07 Freq: Status: Active Protocol: Document 08/15/23 14:31 [facility] (Rec: 08/15/23 15:19 [facility] [id number]) Current Condition History of Current Condition Onset Date Jun 11, 2023 Current Complaints L brachium History of Current Condition Pt fell carrying mail bins that broke her fall and felt a sharp pain at that time. It went away but now when she rolls certain ways, or reach w /her arm. She is seeing Dr. Larios. Per pt, w/MRI there is tendonitis, arthritis present and not recommending surgery. A few weeks ago, she reached to grab a cup that was falling and it was sharp pain. She feels like she is losing upper body strength and feels like she is losing ROM and strength B as she is avoiding motion. denies numbness or tingling. pain is sharp w/movement then has a lasting achiness. 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 Pain has not gotten better and in someways has gotten worse w/ the sharp pains. Treatment Goals Patient/Caregiver Goals be able to use arm fully w/o pain PT-OP-C Subjective Start: 08/08/23 08:07 Freq: Status: Active Protocol: Document 10/29/23 09:04 [facility] (Rec: 10/29/23 09:48 [facility] [id number]) OP-PT Subjective Patient Comments Patient Comments Shoulder is feeling pretty good. noticing she can now pull down her trunk. She still feels limited in range Patient Reported Progress Improving PT-OP-F Manual Assessment Start: 08/08/23 08:07 Freq: Status: Active Protocol: Document 08/15/23 14:31 [facility] (Rec: 08/15/23 15:19 [facility] [id number]) Manual Assessments Soft Tissue Assessment Soft Tissue Mobility Assessment tenderness: L pecs, infra & supraspinatus, biceps, & biceps and supra tendon Joint Mobility Assessment Joint Mobility Assessment 1st rib elevation L PT-OP-J Posture/Palpation/Skin Start: 08/08/23 08:07 Freq: Status: Active Protocol: Document 08/15/23 14:31 [facility] (Rec: 08/15/23 15:19 [facility] [id number]) Posture Evaluation [facility] Postural Classification System [facility] Postural Classifications Posterior/Anterior Elbow Flexion Test 1 Comments Posture Comments L>R humerus ant in glenoid, ant tipped, abd, lat tipped L scap, inc kyphosis, mod fwd head PT-OP-K Range of Motion Start: 08/08/23 08:07 Freq: Status: Active Protocol: Document 10/29/23 09:04 [facility] (Rec: 10/29/23 09:48 [facility] [id number]) Shoulder Goniometric Range of Motion Shoulder Left Active Flexion 136 Extension 56 Abduction 103 External Rotation at 90 degrees 52 Abduction External Rotation at 0 degrees Abduction 48 Internal Rotation Behind Back (text) L3 Comments pain PT-OP-L Special Tests Start: 08/08/23 08:07 Freq: Status: Active Protocol: Document 08/15/23 14:31 [facility] (Rec: 08/15/23 15:19 [facility] [id number]) Special Tests Shoulder Special Tests crank Test Results pos biceps loads Test Results pos [place] Test Test Results pain but pain in speeds also Speed's Biceps Test Results pain but pain in obriens also Car Henrik Impingement Test Results neg Neer Impingement Test Results pos Empty Can Test Results neg PT-OP-M Strength Start: 08/08/23 08:07 Freq: Status: Active Protocol: Document 10/29/23 09:04 [facility] (Rec: 10/29/23 09:48 [facility] [id number]) Shoulder Strength Shoulder Manual Muscle Testing Right Flexion 5 Normal Extension 5 Normal Abduction (C5) 5 Normal External Rotation 5 Normal Internal Rotation 5 Normal Left Flexion 4+ Good+ Extension 5 Normal Abduction (C5) 4 Good External Rotation 4+ Good+ Internal Rotation 5 Normal Horizontal Abduction 4 Good Horizontal Adduction 5 Normal Comments pain w/MMT PT-OP-Q Treatments Start: 08/08/23 08:07 Freq: Status: Active Protocol: Document 10/29/23 09:04 [facility] (Rec: 10/29/23 09:48 [facility] [id number]) Therapeutic Exercises Supine Exercises Habd Side bilateral Equipment Used L3 Reps/Minutes 12 Comments cues for shoulder position Prone Exercises scaption Side left Reps/Minutes 15 Habd Side left Equipment Used 2# Reps/Minutes 15 Sidelying Exercises shoulder abduction Sidelying Exercise Name 120 deg Side left Equipment Used 2# Reps/Minutes 15 Sitting Exercises pulleys Sitting Exercise Name flex, scaption,abd, IR in standing Side left Resistance AAROM Reps/Minutes 15 ea slow controlled Comments cues for Standing Exercises abd Standing Exercise Name AAROm w/cane Side left Reps/Minutes 15 Comments cues shoulder Other Exercises AROM Other Exercise Name all planes L isometrics Other Exercise Name MMT and eft Side bilateral Manual Therapy Treatment Soft Tissue Mobilization pec Body Location L Mobilization Type Rolling,Sustained Pressure Intensity/Depth Moderate Body Position Supine Comments w/flex Joint Mobilizations GH Comments L post translation, distraciton and inf w/flex; ant glide w/ER PT-OP-R Modalities Start: 08/08/23 08:07 Freq: Status: Active Protocol: Document 10/29/23 09:04 [facility] (Rec: 10/29/23 09:48 [facility] [id number]) Hot Pack/Cold Pack Treatment Cold Pack Location L shoulder Patient Position Supine Patient Tolerance Good PT-OP-T Assessment and Plan Start: 08/08/23 08:07 Freq: Status: Active Protocol: Document 10/29/23 09:04 [facility] (Rec: 10/29/23 09:48 [facility] [id number]) Physical Therapy Assessment Goals activity Short Term Goal (STG) Pt will be able to dress w/o inc pain 09/16-pain about every other day -putting shirt/jacket on/ off STG Duration achieved 10/28 Senior Infrastructure Architect Goal (LTG) pt will be able to do all work tasks and home tasks w/o accommodation or inc pain in LUE 09/16-uses RUE to reach out- avoid LUE still; pain w/ chores 10/28-pulling down trunk now, hasn't tried reach for seatbelt, has been reaching fwd more w/LUE as needed, hasn 't reaching out lat LTG Duration 12/31 strength Short Term Goal (STG) Pt will be indep w/HEP STG Duration achieved-advancing as able Longterm Goal (LTG) Pt will score at least 4+/5 on all LUE MMT and 09/10 EFT in order to show improved stabiltiy to allow her to do her work tasks. 09/16-improved 10/28-cont improvement LTG Duration 12/31 ROM Short Term Goal (STG) Pt will improve flex and abd of L shoulder by at least 10 deg ea. STG Duration achieved 09/16 Senior Infrastructure Architect Goal (LTG) Pt will have full L AROM of L shoulder w/o inc pain in order to allow greater ease w/ADLs 10/28-improved ROM but pain still at end range; cleaning still difficult LTG Duration 12/31 Quick dash Impairment 54.4 Short Term Goal (STG) Pt will improve quick dash score to now greater than 34 to show improved functional ability w/L shoulder. 09/16-no change 10/28-improved to 40.9 STG Duration 11/20 Longterm Goal (LTG) Pt will improve quick dash score to now greater than 4 to show improved functional ability w/L shoulder. LTG Duration 12/31 Assessment Summary Assessment Pt is making good progress w/ PT but does still have limited end range mobility and dec strength and pain. She is progressing w/functional tasks and is able to do more tasks now w/LUE and some activities she has been encouraged to start to try to return back to . Cont PT for L shoulder strength & mobility to improve ease w/ADLs. Physical Therapy Plan Frequency and Duration Frequency of Treatment 2x/Week Duration of treatment (weeks) 8 Plan of Care Start Date 10/29/23 Plan of Care End Date 01/01/24 Therapeutic Interventions Therapeutic Interventions Gait Training,Home Exercise Program,Joint Mobilizations, Manual Therapy,Neuromuscular Re-education,Orthotic/ Prosthetic Management,Patient/ Caregiver Education,Self-Care/ Home Management,Soft Tissue Mobilization,Taping, Therapeutic Activities, Therapeutic Exercises Modalities Cold Pack/Ice Massage,Electric Stimulation,Hot Packs, Infrared Therapy,Iontophoresis ,Traction- Mechanical, Ultrasound Other Therapeutic Interventions dexamethasone ionto Next Visit Focus/Plan Next Note Type Treatment Note Next Visit Plan POC: cont to advance strengthening and ROM to full, manual to work to improve shoulder mobility
--- NOTE | 2023-10-29 09:49 | PT.OPPOC ---
Physical, Occupational & Speech Therapy At [facility] Current Diagnoses Abnormal posture (10/29/23) Weakness (10/29/23) Superior glenoid labrum lesion of left shoulder, subsequent encounter (10/29/23) Strain of unspecified muscle, fascia and tendon at shoulder and upper arm level, left arm, initial encounter (10/29/23) Visit Care Team Role Provider Type Keny Ibarra MD Family Provider Physician Primary Care Provider Specialty: Family Practice Address: [address] [place] [address], [address], [place], [address] Email: [email or web address] Mello Yates MD Attending Provider Non-Staff Referring Provider Specialty: Physical Medicine and Rehab Address: [address] [place] [address], [id number] Email: Plan Of Care PT-OP-T Assessment and Plan Start: 08/08/23 08:07 Freq: Status: Active Protocol: Document 10/29/23 09:04 [facility] (Rec: 10/29/23 09:48 [facility] [id number]) Physical Therapy Assessment Goals activity Short Term Goal (STG) Pt will be able to dress w/o inc pain 09/16-pain about every other day -putting shirt/jacket on/ off STG Duration achieved 10/28 Fpc Goal (LTG) pt will be able to do all work tasks and home tasks w/o accommodation or inc pain in LUE 09/16-uses RUE to reach out- avoid LUE still; pain w/ chores 10/28-pulling down trunk now, hasn't tried reach for seatbelt, has been reaching fwd more w/LUE as needed, hasn 't reaching out lat LTG Duration 12/31 strength Short Term Goal (STG) Pt will be indep w/HEP STG Duration achieved-advancing as able Manager Professional Development Goal (LTG) Pt will score at least 4+/5 on all LUE MMT and 3/5 EFT in order to show improved stabiltiy to allow her to do her work tasks. 09/16-improved 10/28-cont improvement LTG Duration 12/31 ROM Short Term Goal (STG) Pt will improve flex and abd of L shoulder by at least 10 deg ea. STG Duration achieved 09/16 Fpc Goal (LTG) Pt will have full L AROM of L shoulder w/o inc pain in order to allow greater ease w/ADLs 10/28-improved ROM but pain still at end range; cleaning still difficult LTG Duration 12/31 Quick dash Impairment 54.4 Short Term Goal (STG) Pt will improve quick dash score to now greater than 34 to show improved functional ability w/L shoulder. 09/16-no change 10/28-improved to 40.9 STG Duration 11/20 Manager Professional Development Goal (LTG) Pt will improve quick dash score to now greater than 4 to show improved functional ability w/L shoulder. LTG Duration 12/31 Assessment Summary Assessment Pt is making good progress w/ PT but does still have limited end range mobility and dec strength and pain. She is progressing w/functional tasks and is able to do more tasks now w/LUE and some activities she has been encouraged to start to try to return back to . Cont PT for L shoulder strength & mobility to improve ease w/ADLs. Physical Therapy Plan Frequency and Duration Frequency of Treatment 2x/Week Duration of treatment (weeks) 8 Plan of Care Start Date 10/29/23 Plan of Care End Date 01/01/24 Therapeutic Interventions Therapeutic Interventions Gait Training,Home Exercise Program,Joint Mobilizations, Manual Therapy,Neuromuscular Re-education,Orthotic/ Prosthetic Management,Patient/ Caregiver Education,Self-Care/ Home Management,Soft Tissue Mobilization,Taping, Therapeutic Activities, Therapeutic Exercises Modalities Cold Pack/Ice Massage,Electric Stimulation,Hot Packs, Infrared Therapy,Iontophoresis ,Traction- Mechanical, Ultrasound Other Therapeutic Interventions dexamethasone ionto Next Visit Focus/Plan Next Note Type Treatment Note Next Visit Plan POC: cont to advance strengthening and ROM to full, manual to work to improve shoulder mobility Plan of Care Dates Plan of Care Start Date 10/29/23 Plan of Care End Date 01/01/24 Electronically Signed by: Radha Nj, PT 10/29/23 0949 If you are in agreement with this Plan of Care, please return a signed and dated copy. I have reviewed this Plan of Care and certify that the skilled therapy services above are required to meet the patient?s needs. Physician Signature Date Printed Name and Credentials Clinical Instructor Signature Printed Name and Credentials
--- NOTE | 2023-10-31 10:10 | PT.OTN ---
Current Diagnoses Abnormal posture (10/31/23) Weakness (10/31/23) Superior glenoid labrum lesion of left shoulder, subsequent encounter (10/31/23) Strain of unspecified muscle, fascia and tendon at shoulder and upper arm level, left arm, initial encounter (10/31/23) Physical Therapy Treatment Note PT-OP-A Visit Information Start: 08/08/23 08:07 Freq: Status: Active Protocol: Document 10/31/23 09:10 [facility] (Rec: 10/31/23 10:10 [facility] [id number]) Out-Patient Physical Therapy Visit Information Visit Information Visit Type Treatment Note Visit Start Time 09:05 Visit Stop Time 09:55 Visit Number Number of ENGINEERING TECHNICAL SPECIALIST Visits 0 PT-OP-B Current Condition Start: 08/08/23 08:07 Freq: Status: Active Protocol: Document 08/15/23 14:31 [facility] (Rec: 08/15/23 15:19 [facility] [id number]) Current Condition History of Current Condition Onset Date Jun 11, 2023 Current Complaints L brachium History of Current Condition Pt fell carrying mail bins that broke her fall and felt a sharp pain at that time. It went away but now when she rolls certain ways, or reach w /her arm. She is seeing Dr. Larios. Per pt, w/MRI there is tendonitis, arthritis present and not recommending surgery. A few weeks ago, she reached to grab a cup that was falling and it was sharp pain. She feels like she is losing upper body strength and feels like she is losing ROM and strength B as she is avoiding motion. denies numbness or tingling. pain is sharp w/movement then has a lasting achiness. 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 Pain has not gotten better and in someways has gotten worse w/ the sharp pains. Treatment Goals Patient/Caregiver Goals be able to use arm fully w/o pain PT-OP-C Subjective Start: 08/08/23 08:07 Freq: Status: Active Protocol: Document 10/31/23 09:10 [facility] (Rec: 10/31/23 10:10 [facility] [id number]) OP-PT Subjective Patient Comments Patient Comments Pt reports shoulder is doing okay PT-OP-F Manual Assessment Start: 08/08/23 08:07 Freq: Status: Active Protocol: Document 08/15/23 14:31 [facility] (Rec: 08/15/23 15:19 [facility] [id number]) Manual Assessments Soft Tissue Assessment Soft Tissue Mobility Assessment tenderness: L pecs, infra & supraspinatus, biceps, & biceps and supra tendon Joint Mobility Assessment Joint Mobility Assessment 1st rib elevation L PT-OP-J Posture/Palpation/Skin Start: 08/08/23 08:07 Freq: Status: Active Protocol: Document 08/15/23 14:31 [facility] (Rec: 08/15/23 15:19 [facility] [id number]) Posture Evaluation [facility] Postural Classification System [facility] Postural Classifications Posterior/Anterior Elbow Flexion Test 1 Comments Posture Comments L>R humerus ant in glenoid, ant tipped, abd, lat tipped L scap, inc kyphosis, mod fwd head PT-OP-K Range of Motion Start: 08/08/23 08:07 Freq: Status: Active Protocol: Document 10/29/23 09:04 [facility] (Rec: 10/29/23 09:48 [facility] [id number]) Shoulder Goniometric Range of Motion Shoulder Left Active Flexion 136 Extension 56 Abduction 103 External Rotation at 90 degrees 52 Abduction External Rotation at 0 degrees Abduction 48 Internal Rotation Behind Back (text) L3 Comments pain PT-OP-L Special Tests Start: 08/08/23 08:07 Freq: Status: Active Protocol: Document 08/15/23 14:31 [facility] (Rec: 08/15/23 15:19 [facility] [id number]) Special Tests Shoulder Special Tests crank Test Results pos biceps loads Test Results pos [place] Test Test Results pain but pain in speeds also Speed's Biceps Test Results pain but pain in obriens also Car Henrik Impingement Test Results neg Neer Impingement Test Results pos Empty Can Test Results neg PT-OP-M Strength Start: 08/08/23 08:07 Freq: Status: Active Protocol: Document 10/29/23 09:04 [facility] (Rec: 10/29/23 09:48 [facility] [id number]) Shoulder Strength Shoulder Manual Muscle Testing Right Flexion 5 Normal Extension 5 Normal Abduction (C5) 5 Normal External Rotation 5 Normal Internal Rotation 5 Normal Left Flexion 4+ Good+ Extension 5 Normal Abduction (C5) 4 Good External Rotation 4+ Good+ Internal Rotation 5 Normal Horizontal Abduction 4 Good Horizontal Adduction 5 Normal Comments pain w/MMT PT-OP-Q Treatments Start: 08/08/23 08:07 Freq: Status: Active Protocol: Document 10/31/23 09:10 [facility] (Rec: 10/31/23 10:10 [facility] [id number]) Therapeutic Exercises Supine Exercises pec stretch on soft 1/2 foam roller Supine Exercise Name 1. HAbd 2. flex Side bilateral Reps/Minutes 10 ea Prone Exercises ext Side left Equipment Used 2# Reps/Minutes 12 scaption Side left Reps/Minutes 12 Habd Side left Equipment Used 2# Reps/Minutes 12 Sitting Exercises pulleys Sitting Exercise Name flex, scaption,abd, IR in standing Side left Resistance AAROM Reps/Minutes 15 ea slow controlled Comments cues for Standing Exercises Habd Standing Exercise Name Habd w/flex Side bilateral Equipment Used L2 Reps/Minutes 10 in mirror abd Standing Exercise Name AAROm w/cane Side left Reps/Minutes 15 Comments cues shoulder flex Standing Exercise Name serratus punch to flex Side bilateral Equipment Used orange band Reps/Minutes 15 counter stretch Standing Exercise Name HEP reviewed Side bilateral Reps/Minutes 15sec x3 w/3 lifts attempts end range Comments cues for comfortable range Manual Therapy Treatment Soft Tissue Mobilization neck Body Location L SCM, scalenes Mobilization Type Sustained Pressure Body Position Sidelying Comments w/ post dep pec Body Location L Mobilization Type Rolling,Sustained Pressure Intensity/Depth Moderate Body Position Supine Comments w/flex Joint Mobilizations ribs Comments L 1st caudal FM GH Comments L post translation, distraciton and inf w/flex PT-OP-R Modalities Start: 08/08/23 08:07 Freq: Status: Active Protocol: Document 10/31/23 09:10 [facility] (Rec: 10/31/23 10:10 [facility] [id number]) Hot Pack/Cold Pack Treatment Cold Pack Location L shoulder Patient Position Supine Patient Tolerance Good PT-OP-T Assessment and Plan Start: 08/08/23 08:07 Freq: Status: Active Protocol: Document 10/31/23 09:10 [facility] (Rec: 10/31/23 10:10 [facility] [id number]) Physical Therapy Assessment Goals activity Short Term Goal (STG) Pt will be able to dress w/o inc pain 09/16-pain about every other day -putting shirt/jacket on/ off STG Duration achieved 10/28 [facility] Goal (LTG) pt will be able to do all work tasks and home tasks w/o accommodation or inc pain in LUE 09/16-uses RUE to reach out- avoid LUE still; pain w/ chores 10/28-pulling down trunk now, hasn't tried reach for seatbelt, has been reaching fwd more w/LUE as needed, hasn 't reaching out lat LTG Duration 12/31 strength Short Term Goal (STG) Pt will be indep w/HEP STG Duration achieved-advancing as able [facility] Goal (LTG) Pt will score at least 4+/5 on all LUE MMT and 09/10 EFT in order to show improved stabiltiy to allow her to do her work tasks. 09/16-improved 10/28-cont improvement LTG Duration 12/31 ROM Short Term Goal (STG) Pt will improve flex and abd of L shoulder by at least 10 deg ea. STG Duration achieved 09/16 Dog Daycare Provider Goal (LTG) Pt will have full L AROM of L shoulder w/o inc pain in order to allow greater ease w/ADLs 10/28-improved ROM but pain still at end range; cleaning still difficult LTG Duration 12/31 Quick dash Impairment 54.4 Short Term Goal (STG) Pt will improve quick dash score to now greater than 34 to show improved functional ability w/L shoulder. 09/16-no change 10/28-improved to 40.9 STG Duration 11/20 [facility] Goal (LTG) Pt will improve quick dash score to now greater than 4 to show improved functional ability w/L shoulder. LTG Duration 12/31 Assessment Summary Assessment Pt reports fatigue w/exercises but no c/o pain. cues needed for scap position throughout. Pt still has significant capsular tightness and restriction limiting her range . Physical Therapy Plan Frequency and Duration Frequency of Treatment 2x/Week Duration of treatment (weeks) 8 Plan of Care Start Date 10/29/23 Plan of Care End Date 01/01/24 Next Visit Focus/Plan Next Note Type Treatment Note Next Visit Plan cont to advance strengthening and ROM to full, manual to work to improve shoulder mobility
--- NOTE | 2023-11-05 09:49 | PT.OTN ---
Current Diagnoses Abnormal posture (11/05/23) Weakness (11/05/23) Superior glenoid labrum lesion of left shoulder, subsequent encounter (11/05/23) Strain of unspecified muscle, fascia and tendon at shoulder and upper arm level, left arm, initial encounter (11/05/23) Physical Therapy Treatment Note PT-OP-A Visit Information Start: 08/08/23 08:07 Freq: Status: Active Protocol: Document 11/05/23 09:08 [facility] (Rec: 11/05/23 09:49 [facility] [id number]) Out-Patient Physical Therapy Visit Information Visit Information Visit Type Treatment Note Visit Start Time 09:05 Visit Stop Time 09:55 Visit Number Number of PULVERIZING AND SIFTING OPERATOR Visits 0 PT-OP-B Current Condition Start: 08/08/23 08:07 Freq: Status: Active Protocol: Document 08/15/23 14:31 [facility] (Rec: 08/15/23 15:19 [facility] [id number]) Current Condition History of Current Condition Onset Date Jun 11, 2023 Current Complaints L brachium History of Current Condition Pt fell carrying mail bins that broke her fall and felt a sharp pain at that time. It went away but now when she rolls certain ways, or reach w /her arm. She is seeing Dr. Larios. Per pt, w/MRI there is tendonitis, arthritis present and not recommending surgery. A few weeks ago, she reached to grab a cup that was falling and it was sharp pain. She feels like she is losing upper body strength and feels like she is losing ROM and strength B as she is avoiding motion. denies numbness or tingling. pain is sharp w/movement then has a lasting achiness. 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 Pain has not gotten better and in someways has gotten worse w/ the sharp pains. Treatment Goals Patient/Caregiver Goals be able to use arm fully w/o pain PT-OP-C Subjective Start: 08/08/23 08:07 Freq: Status: Active Protocol: Document 11/05/23 09:08 [facility] (Rec: 11/05/23 09:49 [facility] [id number]) OP-PT Subjective Patient Comments Patient Comments Pt didn't work last week d/t hips/knees. She does work today. She sees Dr. Allred for shoulder Wed. Pt did do a quick close of the fridge which caused a spasm that went away after PT-OP-F Manual Assessment Start: 08/08/23 08:07 Freq: Status: Active Protocol: Document 08/15/23 14:31 [facility] (Rec: 08/15/23 15:19 [facility] [id number]) Manual Assessments Soft Tissue Assessment Soft Tissue Mobility Assessment tenderness: L pecs, infra & supraspinatus, biceps, & biceps and supra tendon Joint Mobility Assessment Joint Mobility Assessment 1st rib elevation L PT-OP-J Posture/Palpation/Skin Start: 08/08/23 08:07 Freq: Status: Active Protocol: Document 08/15/23 14:31 [facility] (Rec: 08/15/23 15:19 [facility] [id number]) Posture Evaluation [facility] Postural Classification System [facility] Postural Classifications Posterior/Anterior Elbow Flexion Test 1 Comments Posture Comments L>R humerus ant in glenoid, ant tipped, abd, lat tipped L scap, inc kyphosis, mod fwd head PT-OP-K Range of Motion Start: 08/08/23 08:07 Freq: Status: Active Protocol: Document 10/29/23 09:04 [facility] (Rec: 10/29/23 09:48 [facility] [id number]) Shoulder Goniometric Range of Motion Shoulder Left Active Flexion 136 Extension 56 Abduction 103 External Rotation at 90 degrees 52 Abduction External Rotation at 0 degrees Abduction 48 Internal Rotation Behind Back (text) L3 Comments pain PT-OP-L Special Tests Start: 08/08/23 08:07 Freq: Status: Active Protocol: Document 08/15/23 14:31 [facility] (Rec: 08/15/23 15:19 [facility] [id number]) Special Tests Shoulder Special Tests crank Test Results pos biceps loads Test Results pos [place] Test Test Results pain but pain in speeds also Speed's Biceps Test Results pain but pain in obriens also Car Henrik Impingement Test Results neg Neer Impingement Test Results pos Empty Can Test Results neg PT-OP-M Strength Start: 08/08/23 08:07 Freq: Status: Active Protocol: Document 10/29/23 09:04 [facility] (Rec: 10/29/23 09:48 [facility] [id number]) Shoulder Strength Shoulder Manual Muscle Testing Right Flexion 5 Normal Extension 5 Normal Abduction (C5) 5 Normal External Rotation 5 Normal Internal Rotation 5 Normal Left Flexion 4+ Good+ Extension 5 Normal Abduction (C5) 4 Good External Rotation 4+ Good+ Internal Rotation 5 Normal Horizontal Abduction 4 Good Horizontal Adduction 5 Normal Comments pain w/MMT PT-OP-Q Treatments Start: 08/08/23 08:07 Freq: Status: Active Protocol: Document 11/05/23 09:08 [facility] (Rec: 11/05/23 09:49 [facility] [id number]) Therapeutic Exercises Prone Exercises scaption Side left Reps/Minutes 12 Habd Side left Equipment Used 2# Reps/Minutes 12 Sidelying Exercises shoulder abduction Sidelying Exercise Name 145 deg Side left Equipment Used 2# Reps/Minutes 15 open book Side left Reps/Minutes 10 Comments cues for as much trunk motion possible Sitting Exercises pulleys Sitting Exercise Name flex, scaption,abd, IR in standing Side left Resistance AAROM Reps/Minutes 15 ea slow controlled Comments cues for Standing Exercises Habd Standing Exercise Name Habd w/flex Side bilateral Equipment Used L2 Reps/Minutes 10 in mirror abd Standing Exercise Name AAROm w/cane Side left Reps/Minutes 15 Comments cues shoulder flex Standing Exercise Name serratus punch to flex Side bilateral Equipment Used orange band Reps/Minutes 15 Manual Therapy Treatment Soft Tissue Mobilization post cuff/ UT/levator scap Body Location L delt, subscap, teres Mobilization Type Sustained Pressure Comments w/rot pec Body Location L Mobilization Type Rolling,Sustained Pressure Intensity/Depth Moderate Body Position Supine Comments w/flex Joint Mobilizations AC Joint L clavicle ant fM w/abd GH Comments L post translation and glide w /IR, distraciton and inf w/ flex PT-OP-R Modalities Start: 08/08/23 08:07 Freq: Status: Active Protocol: Document 11/05/23 09:08 [facility] (Rec: 11/05/23 09:49 [facility] [id number]) Hot Pack/Cold Pack Treatment Cold Pack Location L shoulder Patient Position Supine Patient Tolerance Good PT-OP-T Assessment and Plan Start: 08/08/23 08:07 Freq: Status: Active Protocol: Document 11/05/23 09:08 [facility] (Rec: 11/05/23 09:49 [facility] [id number]) Physical Therapy Assessment Goals activity Short Term Goal (STG) Pt will be able to dress w/o inc pain 09/16-pain about every other day -putting shirt/jacket on/ off STG Duration achieved 10/28 [facility] Goal (LTG) pt will be able to do all work tasks and home tasks w/o accommodation or inc pain in LUE 09/16-uses RUE to reach out- avoid LUE still; pain w/ chores 10/28-pulling down trunk now, hasn't tried reach for seatbelt, has been reaching fwd more w/LUE as needed, hasn 't reaching out lat LTG Duration 12/31 strength Short Term Goal (STG) Pt will be indep w/HEP STG Duration achieved-advancing as able Enroller Goal (LTG) Pt will score at least 4+/5 on all LUE MMT and 09/10 EFT in order to show improved stabiltiy to allow her to do her work tasks. 09/16-improved 10/28-cont improvement LTG Duration 12/31 ROM Short Term Goal (STG) Pt will improve flex and abd of L shoulder by at least 10 deg ea. STG Duration achieved 09/16 [facility] Goal (LTG) Pt will have full L AROM of L shoulder w/o inc pain in order to allow greater ease w/ADLs 10/28-improved ROM but pain still at end range; cleaning still difficult LTG Duration 12/31 Quick dash Impairment 54.4 Short Term Goal (STG) Pt will improve quick dash score to now greater than 34 to show improved functional ability w/L shoulder. 09/16-no change 10/28-improved to 40.9 STG Duration 11/20 [facility] Goal (LTG) Pt will improve quick dash score to now greater than 4 to show improved functional ability w/L shoulder. LTG Duration 12/31 Assessment Summary Assessment Pt did well with exercises w/ cont cueing throughout. She did have more ROM into abd and flex w/exercises today though . Improved IR w/manual. Physical Therapy Plan Frequency and Duration Frequency of Treatment 2x/Week Duration of treatment (weeks) 8 Plan of Care Start Date 10/29/23 Plan of Care End Date 01/01/24 Next Visit Focus/Plan Next Note Type Treatment Note Next Visit Plan cont to advance strengthening and ROM to full, manual to work to improve shoulder mobility
--- NOTE | 2023-11-09 16:26 | PT.OTN ---
Current Diagnoses Abnormal posture (11/09/23) Weakness (11/09/23) Superior glenoid labrum lesion of left shoulder, subsequent encounter (11/09/23) Strain of unspecified muscle, fascia and tendon at shoulder and upper arm level, left arm, initial encounter (11/09/23) Physical Therapy Treatment Note PT-OP-A Visit Information Start: 08/08/23 08:07 Freq: Status: Active Protocol: Document 11/09/23 13:01 AB (Rec: 11/09/23 16:25 AB [id number]) Out-Patient Physical Therapy Visit Information Visit Information Visit Type Treatment Note Visit Note Visit [email or web address] Access Code: [email or web address] Visit Start Time 14:35 Visit Stop Time 15:15 Visit Number Number of BIOINFORMATICIAN Visits 1 PT-OP-B Current Condition Start: 08/08/23 08:07 Freq: Status: Active Protocol: Document 08/15/23 14:31 [facility] (Rec: 08/15/23 15:19 [facility] [id number]) Current Condition History of Current Condition Onset Date Jun 11, 2023 Current Complaints L brachium History of Current Condition Pt fell carrying mail bins that broke her fall and felt a sharp pain at that time. It went away but now when she rolls certain ways, or reach w /her arm. She is seeing Dr. Larios. Per pt, w/MRI there is tendonitis, arthritis present and not recommending surgery. A few weeks ago, she reached to grab a cup that was falling and it was sharp pain. She feels like she is losing upper body strength and feels like she is losing ROM and strength B as she is avoiding motion. denies numbness or tingling. pain is sharp w/movement then has a lasting achiness. 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 Pain has not gotten better and in someways has gotten worse w/ the sharp pains. Treatment Goals Patient/Caregiver Goals be able to use arm fully w/o pain PT-OP-C Subjective Start: 08/08/23 08:07 Freq: Status: Active Protocol: Document 11/09/23 13:01 AB (Rec: 11/09/23 16:25 AB [id number]) OP-PT Subjective Patient Comments Patient Comments Patient reports her arm is better, hip and knee are not. Patient reports she got an activity prescription that she can continue to do what she is doing, and ignacia get a cortisone shot in a couple of weeks for the shoulder. PT-OP-F Manual Assessment Start: 08/08/23 08:07 Freq: Status: Active Protocol: Document 08/15/23 14:31 [facility] (Rec: 08/15/23 15:19 [facility] [id number]) Manual Assessments Soft Tissue Assessment Soft Tissue Mobility Assessment tenderness: L pecs, infra & supraspinatus, biceps, & biceps and supra tendon Joint Mobility Assessment Joint Mobility Assessment 1st rib elevation L PT-OP-J Posture/Palpation/Skin Start: 08/08/23 08:07 Freq: Status: Active Protocol: Document 08/15/23 14:31 [facility] (Rec: 08/15/23 15:19 [facility] [id number]) Posture Evaluation [facility] Postural Classification System [facility] Postural Classifications Posterior/Anterior Elbow Flexion Test 1 Comments Posture Comments L>R humerus ant in glenoid, ant tipped, abd, lat tipped L scap, inc kyphosis, mod fwd head PT-OP-K Range of Motion Start: 08/08/23 08:07 Freq: Status: Active Protocol: Document 10/29/23 09:04 [facility] (Rec: 10/29/23 09:48 [facility] [id number]) Shoulder Goniometric Range of Motion Shoulder Left Active Flexion 136 Extension 56 Abduction 103 External Rotation at 90 degrees 52 Abduction External Rotation at 0 degrees Abduction 48 Internal Rotation Behind Back (text) L3 Comments pain PT-OP-L Special Tests Start: 08/08/23 08:07 Freq: Status: Active Protocol: Document 08/15/23 14:31 [facility] (Rec: 08/15/23 15:19 [facility] [id number]) Special Tests Shoulder Special Tests crank Test Results pos biceps loads Test Results pos [place] Test Test Results pain but pain in speeds also Speed's Biceps Test Results pain but pain in obriens also Car Henrik Impingement Test Results neg Neer Impingement Test Results pos Empty Can Test Results neg PT-OP-M Strength Start: 08/08/23 08:07 Freq: Status: Active Protocol: Document 10/29/23 09:04 [facility] (Rec: 10/29/23 09:48 [facility] [id number]) Shoulder Strength Shoulder Manual Muscle Testing Right Flexion 5 Normal Extension 5 Normal Abduction (C5) 5 Normal External Rotation 5 Normal Internal Rotation 5 Normal Left Flexion 4+ Good+ Extension 5 Normal Abduction (C5) 4 Good External Rotation 4+ Good+ Internal Rotation 5 Normal Horizontal Abduction 4 Good Horizontal Adduction 5 Normal Comments pain w/MMT PT-OP-Q Treatments Start: 08/08/23 08:07 Freq: Status: Active Protocol: Document 11/09/23 13:01 (Rec: 11/09/23 16:25 [id number]) Therapeutic Exercises Supine Exercises mini band Supine Exercise Name shoulder flexion with resisted ER Side bilateral Resistance light blue band/single thickness Reps/Minutes X10 Comments verbal cues Sidelying Exercises sidelying shoulder IR Sidelying Exercise Name AROM Reps/Minutes X10 Comments verbal and tactile cues open book Side bilateral Reps/Minutes 10 Comments cues for as much trunk motion possible sidelying shoulder ER AROM Sidelying Exercise Name AROM Side left Reps/Minutes X10 Standing Exercises IR Standing Exercise Name isometric reactive Side left Resistance peach TB Reps/Minutes X10 Comments cues for scap squeeze Side bilateral Resistance level one Reps/Minutes 2X10 Comments Verbal cues Wall slide flexion Side left Reps/Minutes X2 with lift off and lower then X16 without lift off Comments with stepping to wall, slide up, lift off and lower, not arlene Manual Therapy Treatment Soft Tissue Mobilization neck Body Location L SCM, scalenes, post cuff Mobilization Type Sustained Pressure Body Position Sidelying pec Body Location L Mobilization Type Rolling,Sustained Pressure Intensity/Depth Moderate Body Position Supine Comments w/flex Joint Mobilizations AC Joint AC left Direction inf Grade II Body Position Hooklying Reps/Duration 12 Comments monitored for pain GH Joint left Direction AP and inf Grade III Body Position Hooklying Reps/Duration X12 each L scapulothoracic Direction inferior glide, URotation Grade III Body Position RSidelying Comments slower pacing with tactile humeral ER/inf glide/UR, shayne for pain Manual Techniques PROM left shoulder ER Body Position Sidelying Reps/Duration X10 Comments monitored for pain PT-OP-R Modalities Start: 08/08/23 08:07 Freq: Status: Active Protocol: Document 11/05/23 09:08 [facility] (Rec: 11/05/23 09:49 [facility] [id number]) Hot Pack/Cold Pack Treatment Cold Pack Location L shoulder Patient Position Supine Patient Tolerance Good PT-OP-T Assessment and Plan Start: 08/08/23 08:07 Freq: Status: Active Protocol: Document 11/09/23 13:01 AB (Rec: 11/09/23 16:25 AB [id number]) Physical Therapy Assessment Goals activity Short Term Goal (STG) Pt will be able to dress w/o inc pain 09/16-pain about every other day -putting shirt/jacket on/ off STG Duration achieved 10/28 Jail Goal (LTG) pt will be able to do all work tasks and home tasks w/o accommodation or inc pain in LUE 09/16-uses RUE to reach out- avoid LUE still; pain w/ chores 10/28-pulling down trunk now, hasn't tried reach for seatbelt, has been reaching fwd more w/LUE as needed, hasn 't reaching out lat LTG Duration 12/31 strength Short Term Goal (STG) Pt will be indep w/HEP STG Duration achieved-advancing as able Scraper Burrer Goal (LTG) Pt will score at least 4+/5 on all LUE MMT and 09/10 EFT in order to show improved stabiltiy to allow her to do her work tasks. 09/16-improved 10/28-cont improvement LTG Duration 12/31 ROM Short Term Goal (STG) Pt will improve flex and abd of L shoulder by at least 10 deg ea. STG Duration achieved 09/16 Jail Goal (LTG) Pt will have full L AROM of L shoulder w/o inc pain in order to allow greater ease w/ADLs 10/28-improved ROM but pain still at end range; cleaning still difficult LTG Duration 12/31 Quick dash Impairment 54.4 Short Term Goal (STG) Pt will improve quick dash score to now greater than 34 to show improved functional ability w/L shoulder. 09/16-no change 10/28-improved to 40.9 STG Duration 11/20 Jail Goal (LTG) Pt will improve quick dash score to now greater than 4 to show improved functional ability w/L shoulder. LTG Duration 12/31 Assessment Summary Assessment AROM 136 deg AROM left shoulder end of session, with patient reporting feeling pretty good. Physical Therapy Plan Frequency and Duration Frequency of Treatment 2x/Week Duration of treatment (weeks) 8 Plan of Care Start Date 10/29/23 Plan of Care End Date 01/01/24 Next Visit Focus/Plan Next Note Type Treatment Note Next Visit Plan cont to advance strengthening and ROM to full, manual to work to improve shoulder mobility
--- NOTE | 2023-11-13 13:41 | PT.OTN ---
Current Diagnoses Abnormal posture (11/13/23) Weakness (11/13/23) Superior glenoid labrum lesion of left shoulder, subsequent encounter (11/13/23) Strain of unspecified muscle, fascia and tendon at shoulder and upper arm level, left arm, initial encounter (11/13/23) Physical Therapy Treatment Note PT-OP-A Visit Information Start: 08/08/23 08:07 Freq: Status: Active Protocol: Document 11/13/23 08:12 AB (Rec: 11/13/23 13:41 AB [id number]) Out-Patient Physical Therapy Visit Information Visit Information Visit Type Treatment Note Visit Note Visit 11/15 for PN [email or web address] Access Code: [email or web address] Visit Start Time 09:04 Visit Stop Time 09:45 Visit Number 25 Number of CYBER SPECIAL AGENT Visits 2 PT-OP-B Current Condition Start: 08/08/23 08:07 Freq: Status: Active Protocol: Document 08/15/23 14:31 [facility] (Rec: 08/15/23 15:19 [facility] [id number]) Current Condition History of Current Condition Onset Date Jun 11, 2023 Current Complaints L brachium History of Current Condition Pt fell carrying mail bins that broke her fall and felt a sharp pain at that time. It went away but now when she rolls certain ways, or reach w /her arm. She is seeing Dr. Larios. Per pt, w/MRI there is tendonitis, arthritis present and not recommending surgery. A few weeks ago, she reached to grab a cup that was falling and it was sharp pain. She feels like she is losing upper body strength and feels like she is losing ROM and strength B as she is avoiding motion. denies numbness or tingling. pain is sharp w/movement then has a lasting achiness. 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 Pain has not gotten better and in someways has gotten worse w/ the sharp pains. Treatment Goals Patient/Caregiver Goals be able to use arm fully w/o pain PT-OP-C Subjective Start: 08/08/23 08:07 Freq: Status: Active Protocol: Document 11/13/23 08:12 AB (Rec: 11/13/23 13:41 AB [id number]) OP-PT Subjective Patient Comments Patient Comments Patient reports her shoulder is the same, comments she is having a family crisis this morning. AROM left shoulder flexion 129 deg PT-OP-F Manual Assessment Start: 08/08/23 08:07 Freq: Status: Active Protocol: Document 08/15/23 14:31 [facility] (Rec: 08/15/23 15:19 [facility] [id number]) Manual Assessments Soft Tissue Assessment Soft Tissue Mobility Assessment tenderness: L pecs, infra & supraspinatus, biceps, & biceps and supra tendon Joint Mobility Assessment Joint Mobility Assessment 1st rib elevation L PT-OP-J Posture/Palpation/Skin Start: 08/08/23 08:07 Freq: Status: Active Protocol: Document 08/15/23 14:31 [facility] (Rec: 08/15/23 15:19 [facility] [id number]) Posture Evaluation [facility] Postural Classification System [facility] Postural Classifications Posterior/Anterior Elbow Flexion Test 1 Comments Posture Comments L>R humerus ant in glenoid, ant tipped, abd, lat tipped L scap, inc kyphosis, mod fwd head PT-OP-K Range of Motion Start: 08/08/23 08:07 Freq: Status: Active Protocol: Document 10/29/23 09:04 [facility] (Rec: 10/29/23 09:48 [facility] [id number]) Shoulder Goniometric Range of Motion Shoulder Left Active Flexion 136 Extension 56 Abduction 103 External Rotation at 90 degrees 52 Abduction External Rotation at 0 degrees Abduction 48 Internal Rotation Behind Back (text) L3 Comments pain PT-OP-L Special Tests Start: 08/08/23 08:07 Freq: Status: Active Protocol: Document 08/15/23 14:31 [facility] (Rec: 08/15/23 15:19 [facility] [id number]) Special Tests Shoulder Special Tests crank Test Results pos biceps loads Test Results pos [place] Test Test Results pain but pain in speeds also Speed's Biceps Test Results pain but pain in obriens also Car Henrik Impingement Test Results neg Neer Impingement Test Results pos Empty Can Test Results neg PT-OP-M Strength Start: 08/08/23 08:07 Freq: Status: Active Protocol: Document 10/29/23 09:04 [facility] (Rec: 10/29/23 09:48 [facility] [id number]) Shoulder Strength Shoulder Manual Muscle Testing Right Flexion 5 Normal Extension 5 Normal Abduction (C5) 5 Normal External Rotation 5 Normal Internal Rotation 5 Normal Left Flexion 4+ Good+ Extension 5 Normal Abduction (C5) 4 Good External Rotation 4+ Good+ Internal Rotation 5 Normal Horizontal Abduction 4 Good Horizontal Adduction 5 Normal Comments pain w/MMT PT-OP-Q Treatments Start: 08/08/23 08:07 Freq: Status: Active Protocol: Document 11/13/23 08:12 AB (Rec: 11/13/23 13:41 [id number]) Therapeutic Exercises Supine Exercises mini band Supine Exercise Name shoulder flexion with resisted ER Side bilateral Resistance light blue band/single thickness Reps/Minutes X10 Comments verbal cues alternating UE flexion on foam roller Side bilateral Reps/Minutes X10 Comments verbal cues shoulder abduction on 1/2 foam roller Side bilateral Reps/Minutes X10 Comments VC to perform only within range that UE remains on mat pec stretch on soft 1/2 foam roller Side bilateral Reps/Minutes 2 min Sidelying Exercises sidelying shoulder ER AROM Sidelying Exercise Name AROM Side left Reps/Minutes X10 Standing Exercises scap squeeze Standing Exercise Name row with band and high row Resistance level 2 Reps/Minutes 2X10 each Comments verbal and visual cues Wall slide flexion Side left Reps/Minutes X10 Comments with stepping to wall, slide up, lift off and lower, not arlene Manual Therapy Treatment Soft Tissue Mobilization post cuff/ UT/levator scap Body Location L post cuff, teres, levator scap/UT Mobilization Type Cross-Friction,Rolling, Sustained Pressure Intensity/Depth Moderate Body Position Sidelying pec Body Location L Mobilization Type Cross-Friction,Rolling Intensity/Depth Moderate Body Position Hooklying Joint Mobilizations GH Joint left Direction AP and inf Grade III Body Position Hooklying Reps/Duration X8 each L scapulothoracic Direction inferior glide, URotation Grade III Body Position RSidelying Reps/Duration X10 Self-Care/Home Management Treatment Activities Self-Care/Home Management Activities high row and wall slide with lift off and lower without use of wall added to HEP PT-OP-R Modalities Start: 08/08/23 08:07 Freq: Status: Active Protocol: Document 11/05/23 09:08 [facility] (Rec: 11/05/23 09:49 [facility] [id number]) Hot Pack/Cold Pack Treatment Cold Pack Location L shoulder Patient Position Supine Patient Tolerance Good PT-OP-T Assessment and Plan Start: 08/08/23 08:07 Freq: Status: Active Protocol: Document 11/13/23 08:12 AB (Rec: 11/13/23 13:41 AB [id number]) Physical Therapy Assessment Goals activity Short Term Goal (STG) Pt will be able to dress w/o inc pain 09/16-pain about every other day -putting shirt/jacket on/ off STG Duration achieved 10/28 Retirement Goal (LTG) pt will be able to do all work tasks and home tasks w/o accommodation or inc pain in LUE 09/16-uses RUE to reach out- avoid LUE still; pain w/ chores 10/28-pulling down trunk now, hasn't tried reach for seatbelt, has been reaching fwd more w/LUE as needed, hasn 't reaching out lat LTG Duration 12/31 strength Short Term Goal (STG) Pt will be indep w/HEP STG Duration achieved-advancing as able Retirement Goal (LTG) Pt will score at least 4+/5 on all LUE MMT and 09/10 EFT in order to show improved stabiltiy to allow her to do her work tasks. 09/16-improved 10/28-cont improvement LTG Duration 12/31 ROM Short Term Goal (STG) Pt will improve flex and abd of L shoulder by at least 10 deg ea. STG Duration achieved 09/16 Supervisor Grading Goal (LTG) Pt will have full L AROM of L shoulder w/o inc pain in order to allow greater ease w/ADLs 10/28-improved ROM but pain still at end range; cleaning still difficult LTG Duration 12/31 Quick dash Impairment 54.4 Short Term Goal (STG) Pt will improve quick dash score to now greater than 34 to show improved functional ability w/L shoulder. 09/16-no change 10/28-improved to 40.9 STG Duration 11/20 Retirement Goal (LTG) Pt will improve quick dash score to now greater than 4 to show improved functional ability w/L shoulder. LTG Duration 12/31 Assessment Summary Assessment 121 deg AROM left shoulder flexion end of session, likely due to fatigue. Good arlene to progression of bands with rows , and wall slide progression this session. Physical Therapy Plan Frequency and Duration Frequency of Treatment 2x/Week Duration of treatment (weeks) 8 Plan of Care Start Date 10/29/23 Plan of Care End Date 01/01/24 Next Visit Focus/Plan Next Note Type Treatment Note Next Visit Plan cont to advance strengthening and ROM to full, manual to work to improve shoulder mobility
--- NOTE | 2023-11-16 16:15 | PT.OTN ---
Current Diagnoses Abnormal posture (11/16/23) Weakness (11/16/23) Superior glenoid labrum lesion of left shoulder, subsequent encounter (11/16/23) Strain of unspecified muscle, fascia and tendon at shoulder and upper arm level, left arm, initial encounter (11/16/23) Physical Therapy Treatment Note PT-OP-A Visit Information Start: 08/08/23 08:07 Freq: Status: Active Protocol: Document 11/16/23 15:14 AB (Rec: 11/16/23 16:15 AB [id number]) Out-Patient Physical Therapy Visit Information Visit Information Visit Type Treatment Note Visit Note Visit 12/16 for PN [email or web address] Access Code: [email or web address] Visit Start Time 15:17 Visit Stop Time 16:04 Visit Number 26 Number of WINEMAKER Visits 3 PT-OP-B Current Condition Start: 08/08/23 08:07 Freq: Status: Active Protocol: Document 08/15/23 14:31 [facility] (Rec: 08/15/23 15:19 [facility] [id number]) Current Condition History of Current Condition Onset Date Jun 11, 2023 Current Complaints L brachium History of Current Condition Pt fell carrying mail bins that broke her fall and felt a sharp pain at that time. It went away but now when she rolls certain ways, or reach w /her arm. She is seeing Dr. Larios. Per pt, w/MRI there is tendonitis, arthritis present and not recommending surgery. A few weeks ago, she reached to grab a cup that was falling and it was sharp pain. She feels like she is losing upper body strength and feels like she is losing ROM and strength B as she is avoiding motion. denies numbness or tingling. pain is sharp w/movement then has a lasting achiness. 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 Pain has not gotten better and in someways has gotten worse w/ the sharp pains. Treatment Goals Patient/Caregiver Goals be able to use arm fully w/o pain PT-OP-C Subjective Start: 08/08/23 08:07 Freq: Status: Active Protocol: Document 11/16/23 15:14 AB (Rec: 11/16/23 16:15 AB [id number]) OP-PT Subjective Patient Comments Patient Comments Patient reports she worked through and had increased hip and knee pain. Patient reports she had today off. Patient reports the shoulder is probably been coming along. 136 deg AROM left shoulder flexion start of session. PT-OP-F Manual Assessment Start: 08/08/23 08:07 Freq: Status: Active Protocol: Document 08/15/23 14:31 [facility] (Rec: 08/15/23 15:19 [facility] [id number]) Manual Assessments Soft Tissue Assessment Soft Tissue Mobility Assessment tenderness: L pecs, infra & supraspinatus, biceps, & biceps and supra tendon Joint Mobility Assessment Joint Mobility Assessment 1st rib elevation L PT-OP-J Posture/Palpation/Skin Start: 08/08/23 08:07 Freq: Status: Active Protocol: Document 08/15/23 14:31 [facility] (Rec: 08/15/23 15:19 [facility] [id number]) Posture Evaluation [facility] Postural Classification System [facility] Postural Classifications Posterior/Anterior Elbow Flexion Test 1 Comments Posture Comments L>R humerus ant in glenoid, ant tipped, abd, lat tipped L scap, inc kyphosis, mod fwd head PT-OP-K Range of Motion Start: 08/08/23 08:07 Freq: Status: Active Protocol: Document 10/29/23 09:04 [facility] (Rec: 10/29/23 09:48 [facility] [id number]) Shoulder Goniometric Range of Motion Shoulder Left Active Flexion 136 Extension 56 Abduction 103 External Rotation at 90 degrees 52 Abduction External Rotation at 0 degrees Abduction 48 Internal Rotation Behind Back (text) L3 Comments pain PT-OP-L Special Tests Start: 08/08/23 08:07 Freq: Status: Active Protocol: Document 08/15/23 14:31 [facility] (Rec: 08/15/23 15:19 [facility] [id number]) Special Tests Shoulder Special Tests crank Test Results pos biceps loads Test Results pos [place] Test Test Results pain but pain in speeds also Speed's Biceps Test Results pain but pain in obriens also Car Henrik Impingement Test Results neg Neer Impingement Test Results pos Empty Can Test Results neg PT-OP-M Strength Start: 08/08/23 08:07 Freq: Status: Active Protocol: Document 10/29/23 09:04 [facility] (Rec: 10/29/23 09:48 [facility] [id number]) Shoulder Strength Shoulder Manual Muscle Testing Right Flexion 5 Normal Extension 5 Normal Abduction (C5) 5 Normal External Rotation 5 Normal Internal Rotation 5 Normal Left Flexion 4+ Good+ Extension 5 Normal Abduction (C5) 4 Good External Rotation 4+ Good+ Internal Rotation 5 Normal Horizontal Abduction 4 Good Horizontal Adduction 5 Normal Comments pain w/MMT PT-OP-Q Treatments Start: 08/08/23 08:07 Freq: Status: Active Protocol: Document 11/16/23 15:14 AB (Rec: 11/16/23 16:15 AB [id number]) Therapeutic Exercises Supine Exercises mini band Supine Exercise Name shoulder flexion with resisted ER Side bilateral Resistance light blue band/single thickness Reps/Minutes X10 Comments verbal cues alternating UE flexion on foam roller Supine Exercise Name 1/2 foam roller Side bilateral Reps/Minutes X10 Comments verbal cues pec stretch on soft 1/2 foam roller Side bilateral Reps/Minutes 2 min Sidelying Exercises open book Side bilateral Reps/Minutes 10 Comments cues for as much trunk motion possible sidelying shoulder ER AROM Sidelying Exercise Name AROM Side left Reps/Minutes X10 Manual Therapy Treatment Soft Tissue Mobilization post cuff/ UT/levator scap Body Location L post cuff, teres, levator scap/UT Mobilization Type Cross-Friction,Rolling, Sustained Pressure Intensity/Depth Moderate Body Position Sidelying Joint Mobilizations GH Joint left Direction AP and inf Grade III Body Position Hooklying Reps/Duration X8 each L scapulothoracic Direction into adduction and depression Grade III Body Position RSidelying Reps/Duration X15 Taping left shoulder Treatment Focus unload UT/levatscap and posture Type of Tape Kinesiotape Skin Inspection WNL Comments Pt ed to remove in 3-5 days or immediately if skin irritation occurs. PT-OP-R Modalities Start: 08/08/23 08:07 Freq: Status: Active Protocol: Document 11/05/23 09:08 [facility] (Rec: 11/05/23 09:49 [facility] [id number]) Hot Pack/Cold Pack Treatment Cold Pack Location L shoulder Patient Position Supine Patient Tolerance Good PT-OP-T Assessment and Plan Start: 08/08/23 08:07 Freq: Status: Active Protocol: Document 11/16/23 15:14 AB (Rec: 11/16/23 16:15 AB [id number]) Physical Therapy Assessment Assessment Summary Assessment AROM 124 deg AROM left shoulder flexion, likely due to fatigue. Good tolerance to reclined shoulder flexion with band this session. Physical Therapy Plan Therapeutic Interventions Therapeutic Interventions Gait Training,Home Exercise Program,Joint Mobilizations, Manual Therapy,Neuromuscular Re-education,Orthotic/ Prosthetic Management,Patient/ Caregiver Education,Self-Care/ Home Management,Soft Tissue Mobilization,Taping, Therapeutic Activities, Therapeutic Exercises Modalities Cold Pack/Ice Massage,Electric Stimulation,Hot Packs, Infrared Therapy,Iontophoresis ,Traction- Mechanical, Ultrasound Other Therapeutic Interventions dexamethasone ionto Next Visit Focus/Plan Next Note Type Treatment Note Next Visit Plan cont to advance strengthening and ROM to full, manual to work to improve shoulder mobility, possibly reclined shoulder flexion with band to HEP and discontinue supine shoulder flexion with band
--- NOTE | 2023-11-20 09:48 | PT.OTN ---
Current Diagnoses Abnormal posture (11/20/23) Weakness (11/20/23) Superior glenoid labrum lesion of left shoulder, subsequent encounter (11/20/23) Strain of unspecified muscle, fascia and tendon at shoulder and upper arm level, left arm, initial encounter (11/20/23) Physical Therapy Treatment Note PT-OP-A Visit Information Start: 08/08/23 08:07 Freq: Status: Active Protocol: Document 11/20/23 09:09 [facility] (Rec: 11/20/23 09:47 [facility] [id number]) Out-Patient Physical Therapy Visit Information Visit Information Visit Type Treatment Note Visit Note Visit 01/15 for PN [email or web address] Access Code: [email or web address] Visit Start Time 09:04 Visit Stop Time 09:54 Visit Number 27 Number of HADOOP ADMINISTRATOR Visits 0 PT-OP-B Current Condition Start: 08/08/23 08:07 Freq: Status: Active Protocol: Document 08/15/23 14:31 [facility] (Rec: 08/15/23 15:19 [facility] [id number]) Current Condition History of Current Condition Onset Date Jun 11, 2023 Current Complaints L brachium History of Current Condition Pt fell carrying mail bins that broke her fall and felt a sharp pain at that time. It went away but now when she rolls certain ways, or reach w /her arm. She is seeing Dr. Larios. Per pt, w/MRI there is tendonitis, arthritis present and not recommending surgery. A few weeks ago, she reached to grab a cup that was falling and it was sharp pain. She feels like she is losing upper body strength and feels like she is losing ROM and strength B as she is avoiding motion. denies numbness or tingling. pain is sharp w/movement then has a lasting achiness. 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 Pain has not gotten better and in someways has gotten worse w/ the sharp pains. Treatment Goals Patient/Caregiver Goals be able to use arm fully w/o pain PT-OP-C Subjective Start: 08/08/23 08:07 Freq: Status: Active Protocol: Document 11/20/23 09:09 [facility] (Rec: 11/20/23 09:47 [facility] [id number]) OP-PT Subjective Patient Comments Patient Comments Pt reports her hip is huritng and she is considering using an AD. She hasn't worked as much d/t her hip. She reports she hasn't felt her shoulder as much. Shehas been doing exercises PT-OP-F Manual Assessment Start: 08/08/23 08:07 Freq: Status: Active Protocol: Document 08/15/23 14:31 [facility] (Rec: 08/15/23 15:19 [facility] [id number]) Manual Assessments Soft Tissue Assessment Soft Tissue Mobility Assessment tenderness: L pecs, infra & supraspinatus, biceps, & biceps and supra tendon Joint Mobility Assessment Joint Mobility Assessment 1st rib elevation L PT-OP-J Posture/Palpation/Skin Start: 08/08/23 08:07 Freq: Status: Active Protocol: Document 08/15/23 14:31 [facility] (Rec: 08/15/23 15:19 [facility] [id number]) Posture Evaluation [facility] Postural Classification System [facility] Postural Classifications Posterior/Anterior Elbow Flexion Test 1 Comments Posture Comments L>R humerus ant in glenoid, ant tipped, abd, lat tipped L scap, inc kyphosis, mod fwd head PT-OP-K Range of Motion Start: 08/08/23 08:07 Freq: Status: Active Protocol: Document 10/29/23 09:04 [facility] (Rec: 10/29/23 09:48 [facility] [id number]) Shoulder Goniometric Range of Motion Shoulder Left Active Flexion 136 Extension 56 Abduction 103 External Rotation at 90 degrees 52 Abduction External Rotation at 0 degrees Abduction 48 Internal Rotation Behind Back (text) L3 Comments pain PT-OP-L Special Tests Start: 08/08/23 08:07 Freq: Status: Active Protocol: Document 08/15/23 14:31 [facility] (Rec: 08/15/23 15:19 [facility] [id number]) Special Tests Shoulder Special Tests crank Test Results pos biceps loads Test Results pos [place] Test Test Results pain but pain in speeds also Speed's Biceps Test Results pain but pain in obriens also Car Henrik Impingement Test Results neg Neer Impingement Test Results pos Empty Can Test Results neg PT-OP-M Strength Start: 08/08/23 08:07 Freq: Status: Active Protocol: Document 10/29/23 09:04 [facility] (Rec: 10/29/23 09:48 [facility] [id number]) Shoulder Strength Shoulder Manual Muscle Testing Right Flexion 5 Normal Extension 5 Normal Abduction (C5) 5 Normal External Rotation 5 Normal Internal Rotation 5 Normal Left Flexion 4+ Good+ Extension 5 Normal Abduction (C5) 4 Good External Rotation 4+ Good+ Internal Rotation 5 Normal Horizontal Abduction 4 Good Horizontal Adduction 5 Normal Comments pain w/MMT PT-OP-Q Treatments Start: 08/08/23 08:07 Freq: Status: Active Protocol: Document 11/20/23 09:09 [facility] (Rec: 11/20/23 09:47 [facility] [id number]) Therapeutic Exercises Supine Exercises rotation Supine Exercise Name 90/90 Side left Equipment Used 2# Reps/Minutes 20 serratus punch Supine Exercise Name cues for all aspects of motion Side bilateral Equipment Used 3# Reps/Minutes 15 Comments chest press to punch to overhead flex flex Supine Exercise Name flex w/shoulder Habd Side bilateral Resistance Lvl 1 band Reps/Minutes 15 Sidelying Exercises shoulder abduction Sidelying Exercise Name 145 deg Side left Equipment Used 2# Reps/Minutes 15 open book Side bilateral Reps/Minutes 10 Comments cues for as much trunk motion possible sidelying shoulder ER AROM Sidelying Exercise Name AROM Side left Equipment Used 2# Reps/Minutes X15 Sitting Exercises pulleys Sitting Exercise Name flex, scaption,abd, IR in standing Side left Resistance AAROM Reps/Minutes 15 ea slow controlled Comments cues for Manual Therapy Treatment Soft Tissue Mobilization inf Body Location L lats, teres & subscap Mobilization Type Sustained Pressure Comments w/flex biceps Body Location L biceps and delt Mobilization Type Rolling Intensity/Depth Moderate Body Position seated Comments w/flex and rot pec Body Location L Mobilization Type Cross-Friction,Rolling Intensity/Depth Moderate Body Position Hooklying Comments w/flex Joint Mobilizations AC Joint L clavicle ant w/flex GH Comments L inf & distraction w/flex PT-OP-R Modalities Start: 08/08/23 08:07 Freq: Status: Active Protocol: Document 11/20/23 09:04 [facility] (Rec: 11/20/23 09:48 [facility] [id number]) Hot Pack/Cold Pack Treatment Cold Pack Location L shoulder Patient Position Supine Patient Tolerance Good PT-OP-T Assessment and Plan Start: 08/08/23 08:07 Freq: Status: Active Protocol: Document 11/20/23 09:09 [facility] (Rec: 11/20/23 09:47 [facility] [id number]) Physical Therapy Assessment Goals activity Short Term Goal (STG) Pt will be able to dress w/o inc pain 09/16-pain about every other day -putting shirt/jacket on/ off STG Duration achieved 10/28 Alf Goal (LTG) pt will be able to do all work tasks and home tasks w/o accommodation or inc pain in LUE 09/16-uses RUE to reach out- avoid LUE still; pain w/ chores 10/28-pulling down trunk now, hasn't tried reach for seatbelt, has been reaching fwd more w/LUE as needed, hasn 't reaching out lat LTG Duration 12/31 strength Short Term Goal (STG) Pt will be indep w/HEP STG Duration achieved-advancing as able Alf Goal (LTG) Pt will score at least 4+/5 on all LUE MMT and 09/10 EFT in order to show improved stabiltiy to allow her to do her work tasks. 09/16-improved 10/28-cont improvement LTG Duration 12/31 ROM Short Term Goal (STG) Pt will improve flex and abd of L shoulder by at least 10 deg ea. STG Duration achieved 09/16 Video Tape Duplicator Goal (LTG) Pt will have full L AROM of L shoulder w/o inc pain in order to allow greater ease w/ADLs 10/28-improved ROM but pain still at end range; cleaning still difficult LTG Duration 12/31 Quick dash Impairment 54.4 Short Term Goal (STG) Pt will improve quick dash score to now greater than 34 to show improved functional ability w/L shoulder. 09/16-no change 10/28-improved to 40.9 STG Duration 11/20 Alf Goal (LTG) Pt will improve quick dash score to now greater than 4 to show improved functional ability w/L shoulder. LTG Duration 12/31 Assessment Summary Assessment Pt did well with exercises today and demonstrated improved AAROM and tolerance of active and strengthening exercise mobility. Pt had 130 deg flex seated after exercises and 152 deg in supine. After manual, had 140 deg flex in seated Physical Therapy Plan Frequency and Duration Frequency of Treatment 2x/Week Duration of treatment (weeks) 8 Plan of Care Start Date 10/29/23 Plan of Care End Date 01/01/24 Next Visit Focus/Plan Next Note Type Treatment Note Next Visit Plan cont to advance strengthening and ROM to full, manual to work to improve shoulder mobility, possibly reclined shoulder flexion with band to HEP and discontinue supine shoulder flexion with band
--- NOTE | 2023-11-22 09:56 | PT.OTN ---
Current Diagnoses Abnormal posture (11/22/23) Weakness (11/22/23) Superior glenoid labrum lesion of left shoulder, subsequent encounter (11/22/23) Strain of unspecified muscle, fascia and tendon at shoulder and upper arm level, left arm, initial encounter (11/22/23) Physical Therapy Treatment Note PT-OP-A Visit Information Start: 08/08/23 08:07 Freq: Status: Active Protocol: Document 11/22/23 09:04 SP (Rec: 11/22/23 09:51 SP [id number]) Out-Patient Physical Therapy Visit Information Visit Information Visit Type Treatment Note Visit Note Visit 02/15 for PN Visit Start Time 09:04 Visit Stop Time 09:56 Visit Number 28 Number of MEDICAL LABORATORY MANAGER Visits 1 PT-OP-B Current Condition Start: 08/08/23 08:07 Freq: Status: Active Protocol: Document 08/15/23 14:31 [facility] (Rec: 08/15/23 15:19 [facility] [id number]) Current Condition History of Current Condition Onset Date Jun 11, 2023 Current Complaints L brachium History of Current Condition Pt fell carrying mail bins that broke her fall and felt a sharp pain at that time. It went away but now when she rolls certain ways, or reach w /her arm. She is seeing Dr. Larios. Per pt, w/MRI there is tendonitis, arthritis present and not recommending surgery. A few weeks ago, she reached to grab a cup that was falling and it was sharp pain. She feels like she is losing upper body strength and feels like she is losing ROM and strength B as she is avoiding motion. denies numbness or tingling. pain is sharp w/movement then has a lasting achiness. 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 Pain has not gotten better and in someways has gotten worse w/ the sharp pains. Treatment Goals Patient/Caregiver Goals be able to use arm fully w/o pain PT-OP-C Subjective Start: 08/08/23 08:07 Freq: Status: Active Protocol: Document 11/22/23 09:04 SP (Rec: 11/22/23 09:51 SP [id number]) OP-PT Subjective Patient Comments Patient Comments Pt reported was swimming and realized can't do abd/er during front stroke, wants to trial in PT today. She also having alot pain in R hip, in process meeting with orthopedic for jt resurfacing so in meantime using FWW at work to get around hospital if needed support. Awaiting dr ramos for use EIB if unable to get around at work. PT-OP-F Manual Assessment Start: 08/08/23 08:07 Freq: Status: Active Protocol: Document 08/15/23 14:31 [facility] (Rec: 08/15/23 15:19 [facility] [id number]) Manual Assessments Soft Tissue Assessment Soft Tissue Mobility Assessment tenderness: L pecs, infra & supraspinatus, biceps, & biceps and supra tendon Joint Mobility Assessment Joint Mobility Assessment 1st rib elevation L PT-OP-J Posture/Palpation/Skin Start: 08/08/23 08:07 Freq: Status: Active Protocol: Document 08/15/23 14:31 [facility] (Rec: 08/15/23 15:19 [facility] [id number]) Posture Evaluation [facility] Postural Classification System [facility] Postural Classifications Posterior/Anterior Elbow Flexion Test 1 Comments Posture Comments L>R humerus ant in glenoid, ant tipped, abd, lat tipped L scap, inc kyphosis, mod fwd head PT-OP-K Range of Motion Start: 08/08/23 08:07 Freq: Status: Active Protocol: Document 10/29/23 09:04 [facility] (Rec: 10/29/23 09:48 [facility] [id number]) Shoulder Goniometric Range of Motion Shoulder Left Active Flexion 136 Extension 56 Abduction 103 External Rotation at 90 degrees 52 Abduction External Rotation at 0 degrees Abduction 48 Internal Rotation Behind Back (text) L3 Comments pain PT-OP-L Special Tests Start: 08/08/23 08:07 Freq: Status: Active Protocol: Document 08/15/23 14:31 [facility] (Rec: 08/15/23 15:19 [facility] [id number]) Special Tests Shoulder Special Tests crank Test Results pos biceps loads Test Results pos [place] Test Test Results pain but pain in speeds also Speed's Biceps Test Results pain but pain in obriens also Car Henrik Impingement Test Results neg Neer Impingement Test Results pos Empty Can Test Results neg PT-OP-M Strength Start: 08/08/23 08:07 Freq: Status: Active Protocol: Document 10/29/23 09:04 [facility] (Rec: 10/29/23 09:48 [facility] [id number]) Shoulder Strength Shoulder Manual Muscle Testing Right Flexion 5 Normal Extension 5 Normal Abduction (C5) 5 Normal External Rotation 5 Normal Internal Rotation 5 Normal Left Flexion 4+ Good+ Extension 5 Normal Abduction (C5) 4 Good External Rotation 4+ Good+ Internal Rotation 5 Normal Horizontal Abduction 4 Good Horizontal Adduction 5 Normal Comments pain w/MMT PT-OP-Q Treatments Start: 08/08/23 08:07 Freq: Status: Active Protocol: Document 11/22/23 09:04 SP (Rec: 11/22/23 09:51 SP [id number]) Therapeutic Exercises Prone Exercises ABD/ER Side left Resistance AROM Equipment Used 1/2 foam roller under upper arm- level with shld Reps/Minutes 5 x2 sets Comments tactile cues for scap retract/ dep awareness 90 deg Row Prone Exercise Name 70-90 deg ABD Side left Resistance AROM Reps/Minutes 8 reps x2 Comments tactil cues maintain forea, arm under elbow & 90 * abd, scap ret/dep scaption Side left Resistance AROM Reps/Minutes 8 reps x2 Comments tactil cues elbow ext, scap inf glide Sidelying Exercises shoulder abduction Sidelying Exercise Name 149 deg Side left Resistance 2# DB Reps/Minutes 5 reps x2 Comments cued no UT, scap UR/inf glide Manual Therapy Treatment Soft Tissue Mobilization post cuff/ UT/levator scap Body Location L post cuff, teres minor, infrasp, post deltoid Mobilization Type Cross-Friction,Rolling, Sustained Pressure Intensity/Depth Moderate Body Position Sidelying & prone Comments manual STMs and MWM FM humeral IR/ER biceps Body Location L biceps and delt Mobilization Type Rolling Intensity/Depth Moderate Body Position Supine & prone Comments MWM w/flex and scaption pec Body Location L Mobilization Type Cross-Friction,Rolling Intensity/Depth Moderate Body Position Hooklying Comments w/flex Joint Mobilizations GH Comments L inf, anterior /c AAROM row, abd/er, scaption L scapulothoracic Direction into adduction and depression Grade III Body Position RSidelying Comments /c ABD FM PT-OP-R Modalities Start: 08/08/23 08:07 Freq: Status: Active Protocol: Document 11/22/23 09:04 SP (Rec: 11/22/23 09:51 SP [id number]) Hot Pack/Cold Pack Treatment Cold Pack Location L shoulder Patient Position Supine Patient Tolerance Good PT-OP-T Assessment and Plan Start: 08/08/23 08:07 Freq: Status: Active Protocol: Document 11/22/23 09:04 SP (Rec: 11/22/23 09:51 SP [id number]) Physical Therapy Assessment Goals activity Short Term Goal (STG) Pt will be able to dress w/o inc pain 09/16-pain about every other day -putting shirt/jacket on/ off STG Duration achieved 10/28 Mcfp Goal (LTG) pt will be able to do all work tasks and home tasks w/o accommodation or inc pain in LUE 09/16-uses RUE to reach out- avoid LUE still; pain w/ chores 10/28-pulling down trunk now, hasn't tried reach for seatbelt, has been reaching fwd more w/LUE as needed, hasn 't reaching out lat LTG Duration 12/31 strength Short Term Goal (STG) Pt will be indep w/HEP STG Duration achieved-advancing as able Interactive Marketing Strategist Goal (LTG) Pt will score at least 4+/5 on all LUE MMT and 09/10 EFT in order to show improved stabiltiy to allow her to do her work tasks. 09/16-improved 10/28-cont improvement LTG Duration 12/31 ROM Short Term Goal (STG) Pt will improve flex and abd of L shoulder by at least 10 deg ea. STG Duration achieved 09/16 Interactive Marketing Strategist Goal (LTG) Pt will have full L AROM of L shoulder w/o inc pain in order to allow greater ease w/ADLs 10/28-improved ROM but pain still at end range; cleaning still difficult LTG Duration 12/31 Quick dash Impairment 54.4 Short Term Goal (STG) Pt will improve quick dash score to now greater than 34 to show improved functional ability w/L shoulder. 09/16-no change 10/28-improved to 40.9 STG Duration 11/20 Interactive Marketing Strategist Goal (LTG) Pt will improve quick dash score to now greater than 4 to show improved functional ability w/L shoulder. LTG Duration 12/31 Assessment Summary Assessment Pt improved partial front stroke motions row, abd /c ER, scaption post manual and AAROM with max tactile cues for forearm/humerus and scap fac directioning increased ROM . Would benefit from continued work into this front crawl motion with LUE and progress to support OH lifting boxes over head tasks need to do at work PLOF. Physical Therapy Plan Frequency and Duration Frequency of Treatment 2x/Week Duration of treatment (weeks) 8 Plan of Care Start Date 10/29/23 Plan of Care End Date 01/01/24 Therapeutic Interventions Therapeutic Interventions Gait Training,Home Exercise Program,Joint Mobilizations, Manual Therapy,Neuromuscular Re-education,Orthotic/ Prosthetic Management,Patient/ Caregiver Education,Self-Care/ Home Management,Soft Tissue Mobilization,Taping, Therapeutic Activities, Therapeutic Exercises Modalities Cold Pack/Ice Massage,Electric Stimulation,Hot Packs, Infrared Therapy,Iontophoresis ,Traction- Mechanical, Ultrasound Other Therapeutic Interventions dexamethasone ionto Next Visit Focus/Plan Next Note Type Treatment Note Next Visit Plan cont to advance strengthening and ROM prone abd/ER front crawl motion for ROM to full in standing, manual to work to improve shoulder mobility, possibly reclined shoulder flexion with band to HEP and discontinue supine shoulder flexion with band
--- NOTE | 2023-11-29 15:14 | PT.OTN ---
Current Diagnoses Abnormal posture (11/29/23) Weakness (11/29/23) Superior glenoid labrum lesion of left shoulder, subsequent encounter (11/29/23) Strain of unspecified muscle, fascia and tendon at shoulder and upper arm level, left arm, initial encounter (11/29/23) Physical Therapy Treatment Note PT-OP-A Visit Information Start: 08/08/23 08:07 Freq: Status: Active Protocol: Document 11/29/23 14:34 SP (Rec: 11/29/23 15:47 SP [id number]) Out-Patient Physical Therapy Visit Information Visit Information Visit Type Treatment Note Visit Note Visit 9/10 for PN Visit Start Time 14:34 Visit Stop Time 15:14 Visit Number 29 Number of MEASUREMENT ANALYST Visits 2 PT-OP-B Current Condition Start: 08/08/23 08:07 Freq: Status: Active Protocol: Document 08/15/23 14:31 [facility] (Rec: 08/15/23 15:19 [facility] [id number]) Current Condition History of Current Condition Onset Date Jun 11, 2023 Current Complaints L brachium History of Current Condition Pt fell carrying mail bins that broke her fall and felt a sharp pain at that time. It went away but now when she rolls certain ways, or reach w /her arm. She is seeing Dr. Larios. Per pt, w/MRI there is tendonitis, arthritis present and not recommending surgery. A few weeks ago, she reached to grab a cup that was falling and it was sharp pain. She feels like she is losing upper body strength and feels like she is losing ROM and strength B as she is avoiding motion. denies numbness or tingling. pain is sharp w/movement then has a lasting achiness. 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 Pain has not gotten better and in someways has gotten worse w/ the sharp pains. Treatment Goals Patient/Caregiver Goals be able to use arm fully w/o pain PT-OP-C Subjective Start: 08/08/23 08:07 Freq: Status: Active Protocol: Document 11/29/23 14:34 SP (Rec: 11/29/23 15:47 SP [id number]) OP-PT Subjective Patient Comments Patient Comments Pt reports L shld felt better range after last tx. 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 Using FWW as needed for addtional support to R hip, needed at work on yesterday. PT-OP-F Manual Assessment Start: 08/08/23 08:07 Freq: Status: Active Protocol: Document 08/15/23 14:31 [facility] (Rec: 08/15/23 15:19 [facility] [id number]) Manual Assessments Soft Tissue Assessment Soft Tissue Mobility Assessment tenderness: L pecs, infra & supraspinatus, biceps, & biceps and supra tendon Joint Mobility Assessment Joint Mobility Assessment 1st rib elevation L PT-OP-J Posture/Palpation/Skin Start: 08/08/23 08:07 Freq: Status: Active Protocol: Document 08/15/23 14:31 [facility] (Rec: 08/15/23 15:19 [facility] [id number]) Posture Evaluation [facility] Postural Classification System [place] Postural Classifications Posterior/Anterior Elbow Flexion Test 1 Comments Posture Comments L>R humerus ant in glenoid, ant tipped, abd, lat tipped L scap, inc kyphosis, mod fwd head PT-OP-K Range of Motion Start: 08/08/23 08:07 Freq: Status: Active Protocol: Document 10/29/23 09:04 [facility] (Rec: 10/29/23 09:48 [facility] [id number]) Shoulder Goniometric Range of Motion Shoulder Left Active Flexion 136 Extension 56 Abduction 103 External Rotation at 90 degrees 52 Abduction External Rotation at 0 degrees Abduction 48 Internal Rotation Behind Back (text) L3 Comments pain PT-OP-L Special Tests Start: 08/08/23 08:07 Freq: Status: Active Protocol: Document 08/15/23 14:31 [facility] (Rec: 08/15/23 15:19 [facility] [id number]) Special Tests Shoulder Special Tests crank Test Results pos biceps loads Test Results pos [place] Test Test Results pain but pain in speeds also Speed's Biceps Test Results pain but pain in obriens also Car Henrik Impingement Test Results neg Neer Impingement Test Results pos Empty Can Test Results neg PT-OP-M Strength Start: 08/08/23 08:07 Freq: Status: Active Protocol: Document 10/29/23 09:04 [facility] (Rec: 10/29/23 09:48 [facility] [id number]) Shoulder Strength Shoulder Manual Muscle Testing Right Flexion 5 Normal Extension 5 Normal Abduction (C5) 5 Normal External Rotation 5 Normal Internal Rotation 5 Normal Left Flexion 4+ Good+ Extension 5 Normal Abduction (C5) 4 Good External Rotation 4+ Good+ Internal Rotation 5 Normal Horizontal Abduction 4 Good Horizontal Adduction 5 Normal Comments pain w/MMT PT-OP-Q Treatments Start: 08/08/23 08:07 Freq: Status: Active Protocol: Document 11/29/23 14:34 SP (Rec: 11/29/23 15:47 SP [id number]) Cardio Equipment Upper Body Ergometer (UBE) Duration (Minutes) 6 RPM 65 Height 2.5 Other fwd/back seated Therapeutic Exercises Prone Exercises ABD/ER Prone Exercise Name ABD 70-90deg ER and IR Side left Resistance AAROM Equipment Used 1/2 foam roller under upper arm- level with shld Reps/Minutes 5 x2 sets Comments tactile cues for scap retract/ dep awareness 90 deg Row Prone Exercise Name 45, 70-90 deg ABD Side left Resistance AROM Reps/Minutes 8 reps x2 Comments tactil cues maintain forea, arm under elbow & 90 * abd, scap ret/dep ext Side left Equipment Used AROM Reps/Minutes 10 Comments cued scap retract scaption Side left Resistance AAROM>AROM Reps/Minutes 3 reps AAAROM, 8 reps x2 Comments tactile cues elbow ext, scap inf glide Habd Side left Equipment Used AROM Reps/Minutes 2x8 reps Comments cued no UT, humeral ER Sitting Exercises eccentric FF & scaption Side left Resistance #2 OTB Equipment Used mesh chair Reps/Minutes x10 each Comments cued slow scap inf glide pnfree Standing Exercises front crawl motion Standing Exercise Name trialed Side left Resistance tactile AAROM arm and scapular Comments challenge ext/abd/er 2nd limited top arc Manual Therapy Treatment Soft Tissue Mobilization post cuff/ UT/levator scap Body Location L post cuff, teres minor, infrasp, post deltoid Mobilization Type Cross-Friction,Rolling, Sustained Pressure Intensity/Depth Moderate Body Position Prone Comments manual STMs and MWM FM humeral IR/ER pec Body Location L Mobilization Type Cross-Friction,Rolling Intensity/Depth Moderate Body Position Prone Comments rested scaption range on table fully supported Joint Mobilizations GH Joint L Grade II Body Position Prone Comments L inf & anterior glide /c FM AAROM row, abd/er (humerus on 07/10 foam roller), scaption Manual Techniques PROM left shoulder ER Type ABD90*/ER tolerated to OH ( modified Ws) Body Location head on R forearm Body Position Prone Reps/Duration 5 reps x2 Comments monitored for pain, AAROM PT-OP-R Modalities Start: 08/08/23 08:07 Freq: Status: Active Protocol: Document 11/22/23 09:04 SP (Rec: 11/22/23 09:51 SP [id number]) Hot Pack/Cold Pack Treatment Cold Pack Location L shoulder Patient Position Supine Patient Tolerance Good PT-OP-T Assessment and Plan Start: 08/08/23 08:07 Freq: Status: Active Protocol: Document 11/29/23 14:34 SP (Rec: 11/29/23 15:47 SP [id number]) Physical Therapy Assessment Goals activity Short Term Goal (STG) Pt will be able to dress w/o inc pain 09/16-pain about every other day -putting shirt/jacket on/ off STG Duration achieved 10/28 Mcfp Goal (LTG) pt will be able to do all work tasks and home tasks w/o accommodation or inc pain in LUE 09/16-uses RUE to reach out- avoid LUE still; pain w/ chores 10/28-pulling down trunk now, hasn't tried reach for seatbelt, has been reaching fwd more w/LUE as needed, hasn 't reaching out lat LTG Duration 12/31 strength Short Term Goal (STG) Pt will be indep w/HEP STG Duration achieved-advancing as able Mcfp Goal (LTG) Pt will score at least 4+/5 on all LUE MMT and 09/10 EFT in order to show improved stabiltiy to allow her to do her work tasks. 09/16-improved 10/28-cont improvement LTG Duration 12/31 ROM Short Term Goal (STG) Pt will improve flex and abd of L shoulder by at least 10 deg ea. STG Duration achieved 09/16 Mcfp Goal (LTG) Pt will have full L AROM of L shoulder w/o inc pain in order to allow greater ease w/ADLs 10/28-improved ROM but pain still at end range; cleaning still difficult LTG Duration 12/31 Quick dash Impairment 54.4 Short Term Goal (STG) Pt will improve quick dash score to now greater than 34 to show improved functional ability w/L shoulder. 09/16-no change 10/28-improved to 40.9 STG Duration 11/20 Mcfp Goal (LTG) Pt will improve quick dash score to now greater than 4 to show improved functional ability w/L shoulder. LTG Duration 12/31 Assessment Summary Assessment Tx continued pt focus on front crawl motion, limited combined ext/abd/ER back to top arc positioning. Improved tolerance and partial range post manual row with arm abd 45-70 deg and abd 45 deg/ER. Pt continues gain FF AROM approx 160deg supine, 150 deg standing post manual and ther ex. Physical Therapy Plan Frequency and Duration Frequency of Treatment 2x/Week Duration of treatment (weeks) 8 Plan of Care Start Date 10/29/23 Plan of Care End Date 01/01/24 Therapeutic Interventions Therapeutic Interventions Gait Training,Home Exercise Program,Joint Mobilizations, Manual Therapy,Neuromuscular Re-education,Orthotic/ Prosthetic Management,Patient/ Caregiver Education,Self-Care/ Home Management,Soft Tissue Mobilization,Taping, Therapeutic Activities, Therapeutic Exercises Modalities Cold Pack/Ice Massage,Electric Stimulation,Hot Packs, Infrared Therapy,Iontophoresis ,Traction- Mechanical, Ultrasound Other Therapeutic Interventions dexamethasone ionto Next Visit Focus/Plan Next Note Type Progress Note Next Visit Plan 10th visit next tx PN. POC: cont to advance strengthening and ROM prone abd/ER front crawl motion for ROM to full in standing PT POC: manual to work to improve shoulder mobility, possibly reclined shoulder flexion with band to HEP and discontinue supine shoulder flexion with band
--- NOTE | 2023-12-04 17:37 | PT.OPPN ---
Current Diagnoses Abnormal posture (12/04/23) Weakness (12/04/23) Superior glenoid labrum lesion of left shoulder, subsequent encounter (12/04/23) Strain of unspecified muscle, fascia and tendon at shoulder and upper arm level, left arm, initial encounter (12/04/23) Physical Therapy Progress Note PT-OP-A Visit Information Start: 08/08/23 08:07 Freq: Status: Active Protocol: Document 12/04/23 13:58 [facility] (Rec: 12/04/23 17:57 [facility] [id number]) Out-Patient Physical Therapy Visit Information Visit Information Visit Type Progress Note Visit Note 07/18 Visit Start Time 13:48 Visit Stop Time 14:38 Visit Number 30 Number of ASSISTANT CENTER DIRECTOR Visits 0 PT-OP-B Current Condition Start: 08/08/23 08:07 Freq: Status: Active Protocol: Document 08/15/23 14:31 [facility] (Rec: 08/15/23 15:19 [facility] [id number]) Current Condition History of Current Condition Onset Date Jun 11, 2023 Current Complaints L brachium History of Current Condition Pt fell carrying mail bins that broke her fall and felt a sharp pain at that time. It went away but now when she rolls certain ways, or reach w /her arm. She is seeing Dr. Larios. Per pt, w/MRI there is tendonitis, arthritis present and not recommending surgery. A few weeks ago, she reached to grab a cup that was falling and it was sharp pain. She feels like she is losing upper body strength and feels like she is losing ROM and strength B as she is avoiding motion. denies numbness or tingling. pain is sharp w/movement then has a lasting achiness. 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 Pain has not gotten better and in someways has gotten worse w/ the sharp pains. Treatment Goals Patient/Caregiver Goals be able to use arm fully w/o pain PT-OP-C Subjective Start: 08/08/23 08:07 Freq: Status: Active Protocol: Document 12/04/23 13:58 [facility] (Rec: 12/04/23 17:57 [facility] [id number]) OP-PT Subjective Patient Comments Patient Comments Pt notes she didn't do prone exercises d/t hard to do on bed PT-OP-F Manual Assessment Start: 08/08/23 08:07 Freq: Status: Active Protocol: Document 08/15/23 14:31 [facility] (Rec: 08/15/23 15:19 [facility] [id number]) Manual Assessments Soft Tissue Assessment Soft Tissue Mobility Assessment tenderness: L pecs, infra & supraspinatus, biceps, & biceps and supra tendon Joint Mobility Assessment Joint Mobility Assessment 1st rib elevation L PT-OP-J Posture/Palpation/Skin Start: 08/08/23 08:07 Freq: Status: Active Protocol: Document 08/15/23 14:31 [facility] (Rec: 08/15/23 15:19 [facility] [id number]) Posture Evaluation [facility] Postural Classification System Scarlett Postural Classifications Posterior/Anterior Elbow Flexion Test 1 Comments Posture Comments L>R humerus ant in glenoid, ant tipped, abd, lat tipped L scap, inc kyphosis, mod fwd head PT-OP-K Range of Motion Start: 08/08/23 08:07 Freq: Status: Active Protocol: Document 10/29/23 09:04 [facility] (Rec: 10/29/23 09:48 [facility] [id number]) Shoulder Goniometric Range of Motion Shoulder Measured in Degrees Left Active Flexion 136 Extension 56 Abduction 103 External Rotation at 90 degrees 52 Abduction External Rotation at 0 degrees Abduction 48 Internal Rotation Behind Back (text) L3 Comments pain PT-OP-L Special Tests Start: 08/08/23 08:07 Freq: Status: Active Protocol: Document 08/15/23 14:31 [facility] (Rec: 08/15/23 15:19 [facility] [id number]) Special Tests Shoulder Special Tests crank Test Results pos biceps loads Test Results pos [place]as[place] Test Test Results pain but pain in speeds also Speed's Biceps Test Results pain but pain in obriens also Car Henrik Impingement Test Results neg Neer Impingement Test Results pos Empty Can Test Results neg PT-OP-M Strength Start: 08/08/23 08:07 Freq: Status: Active Protocol: Document 10/29/23 09:04 [facility] (Rec: 10/29/23 09:48 [facility] [id number]) Shoulder Strength Shoulder Manual Muscle Testing Right Flexion 5 Normal Extension 5 Normal Abduction (C5) 5 Normal External Rotation 5 Normal Internal Rotation 5 Normal Left Flexion 4+ Good+ Extension 5 Normal Abduction (C5) 4 Good External Rotation 4+ Good+ Internal Rotation 5 Normal Horizontal Abduction 4 Good Horizontal Adduction 5 Normal Comments pain w/MMT PT-OP-T Assessment and Plan Start: 08/08/23 08:07 Freq: Status: Active Protocol: Document 12/04/23 13:58 [facility] (Rec: 12/04/23 17:57 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 09/16-improved 10/28-cont improvement 12/03-n/t but pt advancing w/ strength tolerance w/exercises LTG Duration 12/31 ROM Short Term Goal (STG) Pt will improve flex and abd of L shoulder by at least 10 deg ea. STG Duration achieved 09/16 Detention Goal (LTG) Pt will have full L AROM of L shoulder w/o inc pain in order to allow greater ease w/ADLs 10/28-improved ROM but pain still at end range; cleaning still difficult 12/03-gradually inc LTG Duration 12/31 Quick dash Impairment 54.4 Short Term Goal (STG) Pt will improve quick dash score to now greater than 34 to show improved functional ability w/L shoulder. 09/16-no change 10/28-improved to 40.9 5/28-54.5 STG Duration 11/20 Detention Goal (LTG) Pt will improve quick dash score to now greater than 4 to show improved functional ability w/L shoulder. LTG Duration 12/31 Assessment Summary Assessment Pt cont to progress w/PT and is noticing improved function overall. less c/o pain during exercises. She still has hard end feel w/overhead motions and IR d/t capsular and mm tightness. COnt PT to improve ROM and strength Physical Therapy Plan Frequency and Duration Frequency of Treatment 2x/Week Duration of treatment (weeks) 8 Plan of Care Start Date 10/29/23 Plan of Care End Date 01/01/24 Therapeutic Interventions Therapeutic Interventions Gait Training,Home Exercise Program,Joint Mobilizations, Manual Therapy,Neuromuscular Re-education,Orthotic/ Prosthetic Management,Patient/ Caregiver Education,Self-Care/ Home Management,Soft Tissue Mobilization,Taping, Therapeutic Activities, Therapeutic Exercises Modalities Cold Pack/Ice Massage,Electric Stimulation,Hot Packs, Infrared Therapy,Iontophoresis ,Traction- Mechanical, Ultrasound Other Therapeutic Interventions dexamethasone ionto Next Visit Focus/Plan Next Note Type Progress Note Next Visit Plan 10th visit next tx PN. POC: cont to advance strengthening and ROM prone abd/ER front crawl motion for ROM to full in standing PT POC: manual to work to improve shoulder mobility, possibly reclined shoulder flexion with band to HEP and discontinue supine shoulder flexion with band
--- NOTE | 2023-12-04 17:57 | PT.OTN ---
Current Diagnoses Abnormal posture (12/04/23) Weakness (12/04/23) Superior glenoid labrum lesion of left shoulder, subsequent encounter (12/04/23) Strain of unspecified muscle, fascia and tendon at shoulder and upper arm level, left arm, initial encounter (12/04/23) Physical Therapy Treatment Note PT-OP-A Visit Information Start: 08/08/23 08:07 Freq: Status: Active Protocol: Document 12/04/23 13:58 [facility] (Rec: 12/04/23 17:57 [facility] [id number]) Out-Patient Physical Therapy Visit Information Visit Information Visit Type Progress Note Visit Note 07/18 Visit Start Time 13:48 Visit Stop Time 14:38 Visit Number 30 Number of EMERGENCY ROOM PHYSICIAN ASSISTANT Visits 0 PT-OP-B Current Condition Start: 08/08/23 08:07 Freq: Status: Active Protocol: Document 08/15/23 14:31 [facility] (Rec: 08/15/23 15:19 [facility] [id number]) Current Condition History of Current Condition Onset Date Jun 11, 2023 Current Complaints L brachium History of Current Condition Pt fell carrying mail bins that broke her fall and felt a sharp pain at that time. It went away but now when she rolls certain ways, or reach w /her arm. She is seeing Dr. Larios. Per pt, w/MRI there is tendonitis, arthritis present and not recommending surgery. A few weeks ago, she reached to grab a cup that was falling and it was sharp pain. She feels like she is losing upper body strength and feels like she is losing ROM and strength B as she is avoiding motion. denies numbness or tingling. pain is sharp w/movement then has a lasting achiness. 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 Pain has not gotten better and in someways has gotten worse w/ the sharp pains. Treatment Goals Patient/Caregiver Goals be able to use arm fully w/o pain PT-OP-C Subjective Start: 08/08/23 08:07 Freq: Status: Active Protocol: Document 12/04/23 13:58 [facility] (Rec: 12/04/23 17:57 [facility] [id number]) OP-PT Subjective Patient Comments Patient Comments Pt notes she didn't do prone exercises d/t hard to do on bed PT-OP-F Manual Assessment Start: 08/08/23 08:07 Freq: Status: Active Protocol: Document 08/15/23 14:31 [facility] (Rec: 08/15/23 15:19 [facility] [id number]) Manual Assessments Soft Tissue Assessment Soft Tissue Mobility Assessment tenderness: L pecs, infra & supraspinatus, biceps, & biceps and supra tendon Joint Mobility Assessment Joint Mobility Assessment 1st rib elevation L PT-OP-J Posture/Palpation/Skin Start: 08/08/23 08:07 Freq: Status: Active Protocol: Document 08/15/23 14:31 [facility] (Rec: 08/15/23 15:19 [facility] [id number]) Posture Evaluation [facility] Postural Classification System Scarlett Postural Classifications Posterior/Anterior Elbow Flexion Test 1 Comments Posture Comments L>R humerus ant in glenoid, ant tipped, abd, lat tipped L scap, inc kyphosis, mod fwd head PT-OP-K Range of Motion Start: 08/08/23 08:07 Freq: Status: Active Protocol: Document 10/29/23 09:04 [facility] (Rec: 10/29/23 09:48 [facility] [id number]) Shoulder Goniometric Range of Motion Shoulder Left Active Flexion 136 Extension 56 Abduction 103 External Rotation at 90 degrees 52 Abduction External Rotation at 0 degrees Abduction 48 Internal Rotation Behind Back (text) L3 Comments pain PT-OP-L Special Tests Start: 08/08/23 08:07 Freq: Status: Active Protocol: Document 08/15/23 14:31 [facility] (Rec: 08/15/23 15:19 [facility] [id number]) Special Tests Shoulder Special Tests crank Test Results pos biceps loads Test Results pos [place] Test Test Results pain but pain in speeds also Speed's Biceps Test Results pain but pain in obriens also Car Henrik Impingement Test Results neg Neer Impingement Test Results pos Empty Can Test Results neg PT-OP-M Strength Start: 08/08/23 08:07 Freq: Status: Active Protocol: Document 10/29/23 09:04 [facility] (Rec: 10/29/23 09:48 [facility] [id number]) Shoulder Strength Shoulder Manual Muscle Testing Right Flexion 5 Normal Extension 5 Normal Abduction (C5) 5 Normal External Rotation 5 Normal Internal Rotation 5 Normal Left Flexion 4+ Good+ Extension 5 Normal Abduction (C5) 4 Good External Rotation 4+ Good+ Internal Rotation 5 Normal Horizontal Abduction 4 Good Horizontal Adduction 5 Normal Comments pain w/MMT PT-OP-Q Treatments Start: 08/08/23 08:07 Freq: Status: Active Protocol: Document 12/04/23 13:58 [facility] (Rec: 12/04/23 17:57 [facility] [id number]) Therapeutic Exercises Supine Exercises Habd Supine Exercise Name 1. Habd 2. Habd w/flex Side bilateral Reps/Minutes 15 ea Comments cues for scap as needed serratus punch Supine Exercise Name cues no scap elevation Side bilateral Equipment Used 3# Reps/Minutes 20 Standing Exercises stretch Standing Exercise Name post capsule stretch Side left Reps/Minutes 30 sec x2 front crawl motion Standing Exercise Name trialed Side left Resistance tactile AAROM arm and scapular Comments challenge ext/abd/er 2nd limited top arc IR Standing Exercise Name behind back towel Side left Reps/Minutes 5sec x12 ER Standing Exercise Name 90/90 Side left Equipment Used 1# Reps/Minutes 15 Manual Therapy Treatment Soft Tissue Mobilization superior Body Location L UT, LS & scalenes Mobilization Type Rolling Body Position Supine pec Body Location L Mobilization Type Cross-Friction,Rolling Intensity/Depth Moderate Body Position Supine Comments w/IR Joint Mobilizations ribs Comments L 1st rib FM w/flex AC Comments L clavicle ant FM GH Comments L post and inf w/abd & IR PT-OP-R Modalities Start: 08/08/23 08:07 Freq: Status: Active Protocol: Document 11/22/23 09:04 [facility] (Rec: 11/22/23 09:51 [facility] [id number]) Hot Pack/Cold Pack Treatment Cold Pack Location L shoulder Patient Position Supine Patient Tolerance Good PT-OP-T Assessment and Plan Start: 08/08/23 08:07 Freq: Status: Active Protocol: Document 12/04/23 13:58 [facility] (Rec: 12/04/23 17:57 [facility] [id number]) Physical Therapy Assessment Goals activity Short Term Goal (STG) Pt will be able to dress w/o inc pain 09/16-pain about every other day -putting shirt/jacket on/ off STG Duration achieved 10/28 Title Clerk Automobile Goal (LTG) pt will be able to do all work tasks and home tasks w/o accommodation or inc pain in LUE 3/11-uses RUE to reach out- avoid LUE still; pain w/ chores 10/28-pulling down trunk now, hasn't tried reach for seatbelt, has been reaching fwd more w/LUE as needed, hasn 't reaching out lat 12/03-still avoids some lat movements and pain w/heavy aluminizer LTG Duration 12/31 strength Short Term Goal (STG) Pt will be indep w/HEP STG Duration achieved-advancing as able Assisted Goal (LTG) Pt will score at least 4+/5 on all LUE MMT and 09/10 EFT in order to show improved stabiltiy to allow her to do her work tasks. 09/16-improved 10/28-cont improvement 12/03-n/t but pt advancing w/ strength tolerance w/exercises LTG Duration 12/31 ROM Short Term Goal (STG) Pt will improve flex and abd of L shoulder by at least 10 deg ea. STG Duration achieved 09/16 Title Clerk Automobile Goal (LTG) Pt will have full L AROM of L shoulder w/o inc pain in order to allow greater ease w/ADLs 10/28-improved ROM but pain still at end range; cleaning still difficult 12/03-gradually inc LTG Duration 12/31 Quick dash Impairment 54.4 Short Term Goal (STG) Pt will improve quick dash score to now greater than 34 to show improved functional ability w/L shoulder. 09/16-no change 10/28-improved to 40.9 12/03-54.5 STG Duration 11/20 Title Clerk Automobile Goal (LTG) Pt will improve quick dash score to now greater than 4 to show improved functional ability w/L shoulder. LTG Duration 12/31 Assessment Summary Assessment Pt cont to progress w/PT and is noticing improved function overall. less c/o pain during exercises. She still has hard end feel w/overhead motions and IR d/t capsular and mm tightness. COnt PT to improve ROM and strength Physical Therapy Plan Frequency and Duration Frequency of Treatment 2x/Week Duration of treatment (weeks) 8 Plan of Care Start Date 10/29/23 Plan of Care End Date 01/01/24 Therapeutic Interventions Therapeutic Interventions Gait Training,Home Exercise Program,Joint Mobilizations, Manual Therapy,Neuromuscular Re-education,Orthotic/ Prosthetic Management,Patient/ Caregiver Education,Self-Care/ Home Management,Soft Tissue Mobilization,Taping, Therapeutic Activities, Therapeutic Exercises Modalities Cold Pack/Ice Massage,Electric Stimulation,Hot Packs, Infrared Therapy,Iontophoresis ,Traction- Mechanical, Ultrasound Other Therapeutic Interventions dexamethasone ionto Next Visit Focus/Plan Next Note Type Progress Note Next Visit Plan 10th visit next tx PN. POC: cont to advance strengthening and ROM prone abd/ER front crawl motion for ROM to full in standing PT POC: manual to work to improve shoulder mobility, possibly reclined shoulder flexion with band to HEP and discontinue supine shoulder flexion with band
--- NOTE | 2023-12-04 17:58 | PT.OPPOC ---
Physical, Occupational & Speech Therapy At [facility] Current Diagnoses Abnormal posture (12/04/23) Weakness (12/04/23) Superior glenoid labrum lesion of left shoulder, subsequent encounter (12/04/23) Strain of unspecified muscle, fascia and tendon at shoulder and upper arm level, left arm, initial encounter (12/04/23) Visit Care Team Role Provider Type Keny Ibarra MD Family Provider Physician Primary Care Provider Specialty: Family Practice Address: [address] [place] [address], [address], [address] Email: [email or web address] Mello Yates MD Attending Provider Non-Staff Referring Provider Specialty: Physical Medicine and Rehab Address: [address] [place] [address], [id number] Email: Plan Of Care PT-OP-T Assessment and Plan Start: 08/08/23 08:07 Freq: Status: Active Protocol: Document 12/04/23 13:58 [facility] (Rec: 12/04/23 17:57 [facility] [id number]) Physical Therapy Assessment Goals activity Short Term Goal (STG) Pt will be able to dress w/o inc pain 09/16-pain about every other day -putting shirt/jacket on/ off STG Duration achieved 10/28 Fpc Goal (LTG) pt will be able to do all work tasks and home tasks w/o accommodation or inc pain in LUE 09/16-uses RUE to reach out- avoid LUE still; pain w/ chores 10/28-pulling down trunk now, hasn't tried reach for seatbelt, has been reaching fwd more w/LUE as needed, hasn 't reaching out lat 12/03-still avoids some lat movements and pain w/heavy 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 09/16-improved 10/28-cont improvement 12/03-n/t but pt advancing w/ strength tolerance w/exercises LTG Duration 12/31 ROM Short Term Goal (STG) Pt will improve flex and abd of L shoulder by at least 10 deg ea. STG Duration achieved 09/16 Fpc Goal (LTG) Pt will have full L AROM of L shoulder w/o inc pain in order to allow greater ease w/ADLs 10/28-improved ROM but pain still at end range; cleaning still difficult 12/03-gradually inc LTG Duration 12/31 Quick dash Impairment 54.4 Short Term Goal (STG) Pt will improve quick dash score to now greater than 34 to show improved functional ability w/L shoulder. 09/16-no change 10/28-improved to 40.9 12/03-54.5 STG Duration 11/20 Fpc Goal (LTG) Pt will improve quick dash score to now greater than 4 to show improved functional ability w/L shoulder. LTG Duration 12/31 Assessment Summary Assessment Pt cont to progress w/PT and is noticing improved function overall. less c/o pain during exercises. She still has hard end feel w/overhead motions and IR d/t capsular and mm tightness. COnt PT to improve ROM and strength Physical Therapy Plan Frequency and Duration Frequency of Treatment 2x/Week Duration of treatment (weeks) 8 Plan of Care Start Date 10/29/23 Plan of Care End Date 01/01/24 Therapeutic Interventions Therapeutic Interventions Gait Training,Home Exercise Program,Joint Mobilizations, Manual Therapy,Neuromuscular Re-education,Orthotic/ Prosthetic Management,Patient/ Caregiver Education,Self-Care/ Home Management,Soft Tissue Mobilization,Taping, Therapeutic Activities, Therapeutic Exercises Modalities Cold Pack/Ice Massage,Electric Stimulation,Hot Packs, Infrared Therapy,Iontophoresis ,Traction- Mechanical, Ultrasound Other Therapeutic Interventions dexamethasone ionto Next Visit Focus/Plan Next Note Type Progress Note Next Visit Plan 10th visit next tx PN. POC: cont to advance strengthening and ROM prone abd/ER front crawl motion for ROM to full in standing PT POC: manual to work to improve shoulder mobility, possibly reclined shoulder flexion with band to HEP and discontinue supine shoulder flexion with band Plan of Care Dates Plan of Care Start Date 10/29/23 Plan of Care End Date 01/01/24 Electronically Signed by: Radha Nj PT 12/04/23 1757 If you are in agreement with this Plan of Care, please return a signed and dated copy. I have reviewed this Plan of Care and certify that the skilled therapy services above are required to meet the patient?s needs. Physician Signature Date Printed Name and Credentials Clinical Instructor Signature Printed Name and Credentials
--- NOTE | 2023-12-06 16:59 | PT.OTN ---
Current Diagnoses Abnormal posture (12/06/23) Weakness (12/06/23) Superior glenoid labrum lesion of left shoulder, subsequent encounter (12/06/23) Strain of unspecified muscle, fascia and tendon at shoulder and upper arm level, left arm, initial encounter (12/06/23) Physical Therapy Treatment Note PT-OP-A Visit Information Start: 08/08/23 08:07 Freq: Status: Active Protocol: Document 12/06/23 14:32 AB (Rec: 12/06/23 16:59 AB [id number]) Out-Patient Physical Therapy Visit Information Visit Information Visit Type Treatment Note Visit Note 08/18 Visit Start Time 14:38 Visit Stop Time 15:17 Visit Number 30 Number of UNLEAVENED DOUGH MIXER Visits 0 PT-OP-B Current Condition Start: 08/08/23 08:07 Freq: Status: Active Protocol: Document 08/15/23 14:31 [facility] (Rec: 08/15/23 15:19 [facility] [id number]) Current Condition History of Current Condition Onset Date Jun 11, 2023 Current Complaints L brachium History of Current Condition Pt fell carrying mail bins that broke her fall and felt a sharp pain at that time. It went away but now when she rolls certain ways, or reach w /her arm. She is seeing Dr. Larios. Per pt, w/MRI there is tendonitis, arthritis present and not recommending surgery. A few weeks ago, she reached to grab a cup that was falling and it was sharp pain. She feels like she is losing upper body strength and feels like she is losing ROM and strength B as she is avoiding motion. denies numbness or tingling. pain is sharp w/movement then has a lasting achiness. 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 Pain has not gotten better and in someways has gotten worse w/ the sharp pains. Treatment Goals Patient/Caregiver Goals be able to use arm fully w/o pain PT-OP-C Subjective Start: 08/08/23 08:07 Freq: Status: Active Protocol: Document 12/06/23 14:32 AB (Rec: 12/06/23 16:59 AB [id number]) OP-PT Subjective Patient Comments Patient Comments 141 deg AROM left shoulder flexion start of session. Patient reports she has been doing her crawl exercise in standing. PT-OP-F Manual Assessment Start: 08/08/23 08:07 Freq: Status: Active Protocol: Document 08/15/23 14:31 [facility] (Rec: 08/15/23 15:19 [facility] [id number]) Manual Assessments Soft Tissue Assessment Soft Tissue Mobility Assessment tenderness: L pecs, infra & supraspinatus, biceps, & biceps and supra tendon Joint Mobility Assessment Joint Mobility Assessment 1st rib elevation L PT-OP-J Posture/Palpation/Skin Start: 08/08/23 08:07 Freq: Status: Active Protocol: Document 08/15/23 14:31 [facility] (Rec: 08/15/23 15:19 [facility] [id number]) Posture Evaluation [facility] Postural Classification System [facility] Postural Classifications Posterior/Anterior Elbow Flexion Test 1 Comments Posture Comments L>R humerus ant in glenoid, ant tipped, abd, lat tipped L scap, inc kyphosis, mod fwd head PT-OP-K Range of Motion Start: 08/08/23 08:07 Freq: Status: Active Protocol: Document 10/29/23 09:04 [facility] (Rec: 10/29/23 09:48 [facility] [id number]) Shoulder Goniometric Range of Motion Shoulder Left Active Flexion 136 Extension 56 Abduction 103 External Rotation at 90 degrees 52 Abduction External Rotation at 0 degrees Abduction 48 Internal Rotation Behind Back (text) L3 Comments pain PT-OP-L Special Tests Start: 08/08/23 08:07 Freq: Status: Active Protocol: Document 08/15/23 14:31 [facility] (Rec: 08/15/23 15:19 [facility] [id number]) Special Tests Shoulder Special Tests crank Test Results pos biceps loads Test Results pos [place] Test Test Results pain but pain in speeds also Speed's Biceps Test Results pain but pain in obriens also Car Henrik Impingement Test Results neg Neer Impingement Test Results pos Empty Can Test Results neg PT-OP-M Strength Start: 08/08/23 08:07 Freq: Status: Active Protocol: Document 10/29/23 09:04 [facility] (Rec: 10/29/23 09:48 [facility] [id number]) Shoulder Strength Shoulder Manual Muscle Testing Right Flexion 5 Normal Extension 5 Normal Abduction (C5) 5 Normal External Rotation 5 Normal Internal Rotation 5 Normal Left Flexion 4+ Good+ Extension 5 Normal Abduction (C5) 4 Good External Rotation 4+ Good+ Internal Rotation 5 Normal Horizontal Abduction 4 Good Horizontal Adduction 5 Normal Comments pain w/MMT PT-OP-Q Treatments Start: 08/08/23 08:07 Freq: Status: Active Protocol: Document 12/06/23 14:32 AB (Rec: 12/06/23 16:59 AB [id number]) Therapeutic Exercises Supine Exercises mini band Supine Exercise Name shoulder flexion with resisted ER reclined this session Side bilateral Resistance light blue band/single thickness Reps/Minutes X10 Comments verbal cues Prone Exercises ABD/ER Prone Exercise Name 90/90 abd and ER Side left Resistance AROM then with 1 lb Equipment Used towel under UE for support Reps/Minutes 2X15 Comments verbal and tactile cues Sidelying Exercises open book Side bilateral Reps/Minutes 5 X each side Comments cues for as much trunk motion possible sidelying shoulder ER AROM Sidelying Exercise Name AROM Side left Equipment Used 0 Reps/Minutes X15 Sitting Exercises ER Sitting Exercise Name elbow on mat Side left Equipment Used 1# Reps/Minutes 15 Standing Exercises high row/row Side bilateral Resistance level 3 green band Reps/Minutes 15 X 2 each Comments verbal and tactile cues Manual Therapy Treatment Soft Tissue Mobilization post cuff/ UT/levator scap Body Location L post cuff, teres minor, infrasp, UT, levator scap Mobilization Type Cross-Friction,Rolling, Sustained Pressure Intensity/Depth Moderate Body Position Sidelying pec Body Location L Mobilization Type Cross-Friction,Rolling Intensity/Depth Moderate Body Position Hooklying Joint Mobilizations GH Joint L Direction AP and INF Grade IV Body Position Prone Reps/Duration X10 X 3 L scapulothoracic Direction into adduction and depression Grade III Body Position RSidelying Manual Techniques PROM left shoulder ER Type ER with UE at side Body Position Sidelying Reps/Duration X5 Comments monitored for pain PT-OP-R Modalities Start: 08/08/23 08:07 Freq: Status: Active Protocol: Document 11/22/23 09:04 SP (Rec: 11/22/23 09:51 SP [id number]) Hot Pack/Cold Pack Treatment Cold Pack Location L shoulder Patient Position Supine Patient Tolerance Good PT-OP-T Assessment and Plan Start: 08/08/23 08:07 Freq: Status: Active Protocol: Document 12/06/23 14:32 AB (Rec: 12/06/23 16:59 AB [id number]) Physical Therapy Assessment Goals activity Short Term Goal (STG) Pt will be able to dress w/o inc pain 09/16-pain about every other day -putting shirt/jacket on/ off STG Duration achieved 10/28 Usp Goal (LTG) pt will be able to do all work tasks and home tasks w/o accommodation or inc pain in LUE 09/16-uses RUE to reach out- avoid LUE still; pain w/ chores 10/28-pulling down trunk now, hasn't tried reach for seatbelt, has been reaching fwd more w/LUE as needed, hasn 't reaching out lat 12/03-still avoids some lat movements and pain w/heavy manager functional LTG Duration 12/31 strength Short Term Goal (STG) Pt will be indep w/HEP STG Duration achieved-advancing as able Usp Goal (LTG) Pt will score at least 4+/5 on all LUE MMT and 09/10 EFT in order to show improved stabiltiy to allow her to do her work tasks. 09/16-improved 10/28-cont improvement 12/03-n/t but pt advancing w/ strength tolerance w/exercises LTG Duration 12/31 ROM Short Term Goal (STG) Pt will improve flex and abd of L shoulder by at least 10 deg ea. STG Duration achieved 09/16 Usp Goal (LTG) Pt will have full L AROM of L shoulder w/o inc pain in order to allow greater ease w/ADLs 10/28-improved ROM but pain still at end range; cleaning still difficult 12/03-gradually inc LTG Duration 12/31 Quick dash Impairment 54.4 Short Term Goal (STG) Pt will improve quick dash score to now greater than 34 to show improved functional ability w/L shoulder. 09/16-no change 10/28-improved to 40.9 12/03-54.5 STG Duration 11/20 Usp Goal (LTG) Pt will improve quick dash score to now greater than 4 to show improved functional ability w/L shoulder. LTG Duration 12/31 Assessment Summary Assessment 135 deg AROM left shoulder flexion end of session, decreased likely due to fatigue. Physical Therapy Plan Frequency and Duration Frequency of Treatment 2x/Week Duration of treatment (weeks) 8 Plan of Care Start Date 10/29/23 Plan of Care End Date 01/01/24 Next Visit Focus/Plan Next Note Type Treatment Note Next Visit Plan Assess arlene to Mini band reclined, seated ER with 1 lb and level band for row and shawn row changes to HEP. POC: cont to advance strengthening and ROM prone abd/ER front crawl motion for ROM to full in standing PT POC: manual to work to improve shoulder mobility,
--- NOTE | 2023-12-12 10:32 | PT.OTN ---
Current Diagnoses Abnormal posture (12/12/23) Weakness (12/12/23) Superior glenoid labrum lesion of left shoulder, subsequent encounter (12/12/23) Strain of unspecified muscle, fascia and tendon at shoulder and upper arm level, left arm, initial encounter (12/12/23) Physical Therapy Treatment Note PT-OP-A Visit Information Start: 08/08/23 08:07 Freq: Status: Active Protocol: Document 12/12/23 10:16 [facility] (Rec: 12/12/23 10:32 [facility] [id number]) Out-Patient Physical Therapy Visit Information Visit Information Visit Type Treatment Note Visit Note 09/15 Visit Start Time 07:32 Visit Stop Time 08:14 Visit Number 32 Number of PUBLIC SPEAKING INSTRUCTOR Visits 0 PT-OP-B Current Condition Start: 08/08/23 08:07 Freq: Status: Active Protocol: Document 08/15/23 14:31 [facility] (Rec: 08/15/23 15:19 [facility] [id number]) Current Condition History of Current Condition Onset Date Jun 11, 2023 Current Complaints L brachium History of Current Condition Pt fell carrying mail bins that broke her fall and felt a sharp pain at that time. It went away but now when she rolls certain ways, or reach w /her arm. She is seeing Dr. Larios. Per pt, w/MRI there is tendonitis, arthritis present and not recommending surgery. A few weeks ago, she reached to grab a cup that was falling and it was sharp pain. She feels like she is losing upper body strength and feels like she is losing ROM and strength B as she is avoiding motion. denies numbness or tingling. pain is sharp w/movement then has a lasting achiness. 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 Pain has not gotten better and in someways has gotten worse w/ the sharp pains. Treatment Goals Patient/Caregiver Goals be able to use arm fully w/o pain PT-OP-C Subjective Start: 08/08/23 08:07 Freq: Status: Active Protocol: Document 12/12/23 10:16 [facility] (Rec: 12/12/23 10:32 [facility] [id number]) OP-PT Subjective Patient Comments Patient Comments Pt reports less pain with L shoulder but still notices dec range. She is using L to put seatbelt on w/a little stretch . She has had a lot going on personally, so not doing her exercises. PT-OP-F Manual Assessment Start: 08/08/23 08:07 Freq: Status: Active Protocol: Document 08/15/23 14:31 [facility] (Rec: 08/15/23 15:19 [facility] [id number]) Manual Assessments Soft Tissue Assessment Soft Tissue Mobility Assessment tenderness: L pecs, infra & supraspinatus, biceps, & biceps and supra tendon Joint Mobility Assessment Joint Mobility Assessment 1st rib elevation L PT-OP-J Posture/Palpation/Skin Start: 08/08/23 08:07 Freq: Status: Active Protocol: Document 08/15/23 14:31 [facility] (Rec: 08/15/23 15:19 [facility] [id number]) Posture Evaluation [facility] Postural Classification System [facility] Postural Classifications Posterior/Anterior Elbow Flexion Test 1 Comments Posture Comments L>R humerus ant in glenoid, ant tipped, abd, lat tipped L scap, inc kyphosis, mod fwd head PT-OP-K Range of Motion Start: 08/08/23 08:07 Freq: Status: Active Protocol: Document 10/29/23 09:04 [facility] (Rec: 10/29/23 09:48 [facility] [id number]) Shoulder Goniometric Range of Motion Shoulder Left Active Flexion 136 Extension 56 Abduction 103 External Rotation at 90 degrees 52 Abduction External Rotation at 0 degrees Abduction 48 Internal Rotation Behind Back (text) L3 Comments pain PT-OP-L Special Tests Start: 08/08/23 08:07 Freq: Status: Active Protocol: Document 08/15/23 14:31 [facility] (Rec: 08/15/23 15:19 [facility] [id number]) Special Tests Shoulder Special Tests crank Test Results pos biceps loads Test Results pos [place] Test Test Results pain but pain in speeds also Speed's Biceps Test Results pain but pain in obriens also Car Henrik Impingement Test Results neg Neer Impingement Test Results pos Empty Can Test Results neg PT-OP-M Strength Start: 08/08/23 08:07 Freq: Status: Active Protocol: Document 10/29/23 09:04 [facility] (Rec: 10/29/23 09:48 [facility] [id number]) Shoulder Strength Shoulder Manual Muscle Testing Right Flexion 5 Normal Extension 5 Normal Abduction (C5) 5 Normal External Rotation 5 Normal Internal Rotation 5 Normal Left Flexion 4+ Good+ Extension 5 Normal Abduction (C5) 4 Good External Rotation 4+ Good+ Internal Rotation 5 Normal Horizontal Abduction 4 Good Horizontal Adduction 5 Normal Comments pain w/MMT PT-OP-Q Treatments Start: 08/08/23 08:07 Freq: Status: Active Protocol: Document 12/12/23 10:16 [facility] (Rec: 12/12/23 10:32 [facility] [id number]) Therapeutic Exercises Sitting Exercises pulleys Sitting Exercise Name flex, scaption,abd, IR in standing Side left Resistance AAROM Reps/Minutes 15 ea slow controlled Comments cues for Standing Exercises abd Standing Exercise Name AAROM w/dowel w/use of LUE as much as can Reps/Minutes 15 flex Standing Exercise Name AAROM w/dowel w/use of LUE as much as can Reps/Minutes 15 ea for flex and scaption IR Standing Exercise Name 1. at side 2. 90/90 Side left Equipment Used 1.green band 2. orange band Reps/Minutes 15 ea ER Standing Exercise Name 90/90 Side left Equipment Used 1# Reps/Minutes 15 Manual Therapy Treatment Soft Tissue Mobilization post cuff/ UT/levator scap Body Location L post delt, UT,teres Mobilization Type Cross-Friction,Rolling, Sustained Pressure Intensity/Depth Moderate Body Position Sidelying Comments w/abd inf Comments MFR of lats, inf ribcage fascia w/shoulder abd PT-OP-R Modalities Start: 08/08/23 08:07 Freq: Status: Active Protocol: Document 11/22/23 09:04 SP (Rec: 11/22/23 09:51 SP [id number]) Hot Pack/Cold Pack Treatment Cold Pack Location L shoulder Patient Position Supine Patient Tolerance Good PT-OP-T Assessment and Plan Start: 08/08/23 08:07 Freq: Status: Active Protocol: Document 12/12/23 10:16 [facility] (Rec: 12/12/23 10:32 [facility] [id number]) Physical Therapy Assessment Goals activity Short Term Goal (STG) Pt will be able to dress w/o inc pain 09/16-pain about every other day -putting shirt/jacket on/ off STG Duration achieved 10/28 Machine Bender Goal (LTG) pt will be able to do all work tasks and home tasks w/o accommodation or inc pain in LUE 09/16-uses RUE to reach out- avoid LUE still; pain w/ chores 10/28-pulling down trunk now, hasn't tried reach for seatbelt, has been reaching fwd more w/LUE as needed, hasn 't reaching out lat 12/03-still avoids some lat movements and pain w/heavy neurosurgical nurse LTG Duration 12/31 strength Short Term Goal (STG) Pt will be indep w/HEP STG Duration achieved-advancing as able Machine Bender Goal (LTG) Pt will score at least 4+/5 on all LUE MMT and 09/10 EFT in order to show improved stabiltiy to allow her to do her work tasks. 09/16-improved 10/28-cont improvement 12/03-n/t but pt advancing w/ strength tolerance w/exercises LTG Duration 12/31 ROM Short Term Goal (STG) Pt will improve flex and abd of L shoulder by at least 10 deg ea. STG Duration achieved 09/16 Machine Bender Goal (LTG) Pt will have full L AROM of L shoulder w/o inc pain in order to allow greater ease w/ADLs 10/28-improved ROM but pain still at end range; cleaning still difficult 12/03-gradually inc LTG Duration 12/31 Quick dash Impairment 54.4 Short Term Goal (STG) Pt will improve quick dash score to now greater than 34 to show improved functional ability w/L shoulder. 09/16-no change 10/28-improved to 40.9 12/03-54.5 STG Duration 11/20 Machine Bender Goal (LTG) Pt will improve quick dash score to now greater than 4 to show improved functional ability w/L shoulder. LTG Duration 12/31 Assessment Summary Assessment Pt had imrpoved flex more equal to R after session today . She requires max cues throughout exercsies for form and working through full ROM. Physical Therapy Plan Frequency and Duration Frequency of Treatment 2x/Week Duration of treatment (weeks) 8 Plan of Care Start Date 10/29/23 Plan of Care End Date 01/01/24 Next Visit Focus/Plan Next Note Type Treatment Note Next Visit Plan review exercises and cont to work on AAROM to improve shoulder overhead ROM
--- NOTE | 2023-12-14 15:45 | PT.OTN ---
Current Diagnoses Abnormal posture (12/14/23) Weakness (12/14/23) Superior glenoid labrum lesion of left shoulder, subsequent encounter (12/14/23) Strain of unspecified muscle, fascia and tendon at shoulder and upper arm level, left arm, initial encounter (12/14/23) Physical Therapy Treatment Note PT-OP-A Visit Information Start: 08/08/23 08:07 Freq: Status: Active Protocol: Document 12/14/23 11:15 AB (Rec: 12/14/23 15:45 AB [id number]) Out-Patient Physical Therapy Visit Information Visit Information Visit Type Treatment Note Visit Note 10/16 Visit Start Time 13:48 Visit Stop Time 14:30 Visit Number 33 Number of DIRECTOR OF SLOT OPERATIONS Visits 1 PT-OP-B Current Condition Start: 08/08/23 08:07 Freq: Status: Active Protocol: Document 08/15/23 14:31 [facility] (Rec: 08/15/23 15:19 [facility] [id number]) Current Condition History of Current Condition Onset Date Jun 11, 2023 Current Complaints L brachium History of Current Condition Pt fell carrying mail bins that broke her fall and felt a sharp pain at that time. It went away but now when she rolls certain ways, or reach w /her arm. She is seeing Dr. Larios. Per pt, w/MRI there is tendonitis, arthritis present and not recommending surgery. A few weeks ago, she reached to grab a cup that was falling and it was sharp pain. She feels like she is losing upper body strength and feels like she is losing ROM and strength B as she is avoiding motion. denies numbness or tingling. pain is sharp w/movement then has a lasting achiness. 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 Pain has not gotten better and in someways has gotten worse w/ the sharp pains. Treatment Goals Patient/Caregiver Goals be able to use arm fully w/o pain PT-OP-C Subjective Start: 08/08/23 08:07 Freq: Status: Active Protocol: Document 12/14/23 11:15 AB (Rec: 12/14/23 15:45 AB [id number]) OP-PT Subjective Patient Comments Patient Comments AROM left shoulder flexion 128 deg start of session, patient reports having no pain. PT-OP-F Manual Assessment Start: 08/08/23 08:07 Freq: Status: Active Protocol: Document 08/15/23 14:31 [facility] (Rec: 08/15/23 15:19 [facility] [id number]) Manual Assessments Soft Tissue Assessment Soft Tissue Mobility Assessment tenderness: L pecs, infra & supraspinatus, biceps, & biceps and supra tendon Joint Mobility Assessment Joint Mobility Assessment 1st rib elevation L PT-OP-J Posture/Palpation/Skin Start: 08/08/23 08:07 Freq: Status: Active Protocol: Document 08/15/23 14:31 [facility] (Rec: 08/15/23 15:19 [facility] [id number]) Posture Evaluation [facility] Postural Classification System [facility] Postural Classifications Posterior/Anterior Elbow Flexion Test 1 Comments Posture Comments L>R humerus ant in glenoid, ant tipped, abd, lat tipped L scap, inc kyphosis, mod fwd head PT-OP-K Range of Motion Start: 08/08/23 08:07 Freq: Status: Active Protocol: Document 10/29/23 09:04 [facility] (Rec: 10/29/23 09:48 [facility] [id number]) Shoulder Goniometric Range of Motion Shoulder Left Active Flexion 136 Extension 56 Abduction 103 External Rotation at 90 degrees 52 Abduction External Rotation at 0 degrees Abduction 48 Internal Rotation Behind Back (text) L3 Comments pain PT-OP-L Special Tests Start: 08/08/23 08:07 Freq: Status: Active Protocol: Document 08/15/23 14:31 [facility] (Rec: 08/15/23 15:19 [facility] [id number]) Special Tests Shoulder Special Tests crank Test Results pos biceps loads Test Results pos [place] Test Test Results pain but pain in speeds also Speed's Biceps Test Results pain but pain in obriens also Car Henrik Impingement Test Results neg Neer Impingement Test Results pos Empty Can Test Results neg PT-OP-M Strength Start: 08/08/23 08:07 Freq: Status: Active Protocol: Document 10/29/23 09:04 [facility] (Rec: 10/29/23 09:48 [facility] [id number]) Shoulder Strength Shoulder Manual Muscle Testing Right Flexion 5 Normal Extension 5 Normal Abduction (C5) 5 Normal External Rotation 5 Normal Internal Rotation 5 Normal Left Flexion 4+ Good+ Extension 5 Normal Abduction (C5) 4 Good External Rotation 4+ Good+ Internal Rotation 5 Normal Horizontal Abduction 4 Good Horizontal Adduction 5 Normal Comments pain w/MMT PT-OP-Q Treatments Start: 08/08/23 08:07 Freq: Status: Active Protocol: Document 12/14/23 11:15 AB (Rec: 12/14/23 15:45 AB [id number]) Cardio Equipment Upper Body Ergometer (UBE) Duration (Minutes) 5 RPM 120 Height 8 Other 3 fwd 2 retro ( standing) Therapeutic Exercises Supine Exercises mini band Supine Exercise Name with and without band Side bilateral Resistance light blue band level one Reps/Minutes X10 without band X 10 with band Comments verbal cues/tactile cues Sitting Exercises ER Sitting Exercise Name elbow on mat Side left Equipment Used 1# Reps/Minutes 15 Standing Exercises high row/row Side bilateral Resistance level 3 green band Reps/Minutes 15 X 2 each Comments verbal and tactile cues flex Standing Exercise Name AAROM w/dowel w/use of LUE as much as can Reps/Minutes 2X10 each with dowel Wall slide flexion Side left Reps/Minutes X10 Comments with stepping to wall, slide up, lift off and lower, not arlene Manual Therapy Treatment Soft Tissue Mobilization post cuff/ UT/levator scap Body Location L post delt, UT,teres Mobilization Type Cross-Friction,Rolling, Sustained Pressure Intensity/Depth Moderate Body Position Sidelying Comments w/abd Joint Mobilizations GH Joint L Direction AP and INF Grade IV Body Position Prone Reps/Duration X10 X 3 L scapulothoracic Direction into adduction and depression Grade III Body Position RSidelying Manual Techniques PROM left shoulder ER Type ER with UE at side Body Position Hooklying Reps/Duration 2 Comments contract relax PT-OP-R Modalities Start: 08/08/23 08:07 Freq: Status: Active Protocol: Document 11/22/23 09:04 SP (Rec: 11/22/23 09:51 SP [id number]) Hot Pack/Cold Pack Treatment Cold Pack Location L shoulder Patient Position Supine Patient Tolerance Good PT-OP-T Assessment and Plan Start: 08/08/23 08:07 Freq: Status: Active Protocol: Document 12/14/23 11:15 AB (Rec: 12/14/23 15:45 AB [id number]) Physical Therapy Assessment Goals activity Short Term Goal (STG) Pt will be able to dress w/o inc pain 09/16-pain about every other day -putting shirt/jacket on/ off STG Duration achieved 10/28 Hand Laster Goal (LTG) pt will be able to do all work tasks and home tasks w/o accommodation or inc pain in LUE 09/16-uses RUE to reach out- avoid LUE still; pain w/ chores 10/28-pulling down trunk now, hasn't tried reach for seatbelt, has been reaching fwd more w/LUE as needed, hasn 't reaching out lat 12/03-still avoids some lat movements and 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 09/16-improved 10/28-cont improvement 12/03-n/t but pt advancing w/ strength tolerance w/exercises LTG Duration 12/31 ROM Short Term Goal (STG) Pt will improve flex and abd of L shoulder by at least 10 deg ea. STG Duration achieved 09/16 Hand Laster Goal (LTG) Pt will have full L AROM of L shoulder w/o inc pain in order to allow greater ease w/ADLs 10/28-improved ROM but pain still at end range; cleaning still difficult 12/03-gradually inc LTG Duration 12/31 Quick dash Impairment 54.4 Short Term Goal (STG) Pt will improve quick dash score to now greater than 34 to show improved functional ability w/L shoulder. 09/16-no change 10/28-improved to 40.9 12/03-54.5 STG Duration 11/20 Intermediate Goal (LTG) Pt will improve quick dash score to now greater than 4 to show improved functional ability w/L shoulder. LTG Duration 12/31 Assessment Summary Assessment AROM left shoulder flexion 134 deg end of session, slightly improved from start of session . Patient reports having no shoulder pain. 6 deg increase in AROM should allow patient to reach items placed at slightly higher levels in the home with decreased UT activation. Physical Therapy Plan Frequency and Duration Frequency of Treatment 2x/Week Duration of treatment (weeks) 8 Plan of Care Start Date 10/29/23 Plan of Care End Date 01/01/24 Next Visit Focus/Plan Next Note Type Treatment Note Next Visit Plan review exercises and cont to work on AAROM to improve shoulder overhead ROM
--- NOTE | 2023-12-17 10:25 | PT.OTN ---
Current Diagnoses Abnormal posture (12/17/23) Weakness (12/17/23) Superior glenoid labrum lesion of left shoulder, subsequent encounter (12/17/23) Strain of unspecified muscle, fascia and tendon at shoulder and upper arm level, left arm, initial encounter (12/17/23) Physical Therapy Treatment Note PT-OP-A Visit Information Start: 08/08/23 08:07 Freq: Status: Active Protocol: Document 12/17/23 09:45 SP (Rec: 12/17/23 10:31 SP [id number]) Out-Patient Physical Therapy Visit Information Visit Information Visit Type Treatment Note Visit Note 11/15 Visit Start Time 09:45 Visit Stop Time 10:25 Visit Number 34 Number of PROMPT CARE RN Visits 2 PT-OP-B Current Condition Start: 08/08/23 08:07 Freq: Status: Active Protocol: Document 08/15/23 14:31 [facility] (Rec: 08/15/23 15:19 [facility] [id number]) Current Condition History of Current Condition Onset Date Jun 11, 2023 Current Complaints L brachium History of Current Condition Pt fell carrying mail bins that broke her fall and felt a sharp pain at that time. It went away but now when she rolls certain ways, or reach w /her arm. She is seeing Dr. Larios. Per pt, w/MRI there is tendonitis, arthritis present and not recommending surgery. A few weeks ago, she reached to grab a cup that was falling and it was sharp pain. She feels like she is losing upper body strength and feels like she is losing ROM and strength B as she is avoiding motion. denies numbness or tingling. pain is sharp w/movement then has a lasting achiness. 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 Pain has not gotten better and in someways has gotten worse w/ the sharp pains. Treatment Goals Patient/Caregiver Goals be able to use arm fully w/o pain PT-OP-C Subjective Start: 08/08/23 08:07 Freq: Status: Active Protocol: Document 12/17/23 09:45 SP (Rec: 12/17/23 10:31 SP [id number]) OP-PT Subjective Patient Comments Patient Comments Pt arrives with her 4WW light contact for stability, stating helps unweight almost normal gait for her hip while better. PT-OP-F Manual Assessment Start: 08/08/23 08:07 Freq: Status: Active Protocol: Document 08/15/23 14:31 [facility] (Rec: 08/15/23 15:19 [facility] [id number]) Manual Assessments Soft Tissue Assessment Soft Tissue Mobility Assessment tenderness: L pecs, infra & supraspinatus, biceps, & biceps and supra tendon Joint Mobility Assessment Joint Mobility Assessment 1st rib elevation L PT-OP-J Posture/Palpation/Skin Start: 08/08/23 08:07 Freq: Status: Active Protocol: Document 08/15/23 14:31 [facility] (Rec: 08/15/23 15:19 [facility] [id number]) Posture Evaluation [facility] Postural Classification System [facility] Postural Classifications Posterior/Anterior Elbow Flexion Test 1 Comments Posture Comments L>R humerus ant in glenoid, ant tipped, abd, lat tipped L scap, inc kyphosis, mod fwd head PT-OP-K Range of Motion Start: 08/08/23 08:07 Freq: Status: Active Protocol: Document 10/29/23 09:04 [facility] (Rec: 10/29/23 09:48 [facility] [id number]) Shoulder Goniometric Range of Motion Shoulder Left Active Flexion 136 Extension 56 Abduction 103 External Rotation at 90 degrees 52 Abduction External Rotation at 0 degrees Abduction 48 Internal Rotation Behind Back (text) L3 Comments pain PT-OP-L Special Tests Start: 08/08/23 08:07 Freq: Status: Active Protocol: Document 08/15/23 14:31 [facility] (Rec: 08/15/23 15:19 [facility] [id number]) Special Tests Shoulder Special Tests crank Test Results pos biceps loads Test Results pos [place] Test Test Results pain but pain in speeds also Speed's Biceps Test Results pain but pain in obriens also Car Henrik Impingement Test Results neg Neer Impingement Test Results pos Empty Can Test Results neg PT-OP-M Strength Start: 08/08/23 08:07 Freq: Status: Active Protocol: Document 10/29/23 09:04 [facility] (Rec: 10/29/23 09:48 [facility] [id number]) Shoulder Strength Shoulder Manual Muscle Testing Right Flexion 5 Normal Extension 5 Normal Abduction (C5) 5 Normal External Rotation 5 Normal Internal Rotation 5 Normal Left Flexion 4+ Good+ Extension 5 Normal Abduction (C5) 4 Good External Rotation 4+ Good+ Internal Rotation 5 Normal Horizontal Abduction 4 Good Horizontal Adduction 5 Normal Comments pain w/MMT PT-OP-Q Treatments Start: 08/08/23 08:07 Freq: Status: Active Protocol: Document 12/17/23 09:45 SP (Rec: 12/17/23 10:31 SP [id number]) Cardio Equipment Upper Body Ergometer (UBE) Duration (Minutes) 6 RPM 120 Seat Position far back as will go out of way Height 8 Other 4 fwd 4 retro ( standing)- good pnfree Therapeutic Exercises Sitting Exercises ER Sitting Exercise Name elbow on raised table (approx 50 deg abd) Side left Resistance 1# DB Equipment Used sitting on 4WW Reps/Minutes 15x2 Comments cued head fwd midline eccentric FF & scaption Sitting Exercise Name eccentric FF Side left Resistance #3 GTB- anchored high Equipment Used 4WW Reps/Minutes x10 each Comments cued slow scap inf glide pnfree Standing Exercises high row/row Standing Exercise Name 1. low row 2. high row Side bilateral Resistance level 3 green band Reps/Minutes 15 X 2 each Comments verbal and tactile cues, elbows up during high row but no UT recruitment flex Standing Exercise Name AAROM w/dowel w/use of LUE as much as can Side bilateral Equipment Used back to wall, mirror front Reps/Minutes 2X10 each with dowel, 3 SH Comments cued no UT, head midline nod, pole bottom ankle upper back toward wall Wall slide flexion Standing Exercise Name 1. slide hold 2. lift off wall Side left Reps/Minutes slide up hold 5 SH x5, lift off wall x5 reps Comments cued step into doorway, lift off wall good challenge, no pain PT-OP-R Modalities Start: 08/08/23 08:07 Freq: Status: Active Protocol: Document 11/22/23 09:04 SP (Rec: 11/22/23 09:51 SP [id number]) Hot Pack/Cold Pack Treatment Cold Pack Location L shoulder Patient Position Supine Patient Tolerance Good PT-OP-T Assessment and Plan Start: 08/08/23 08:07 Freq: Status: Active Protocol: Document 12/17/23 09:45 SP (Rec: 06/10/24 10:31 SP [id number]) Physical Therapy Assessment Goals activity Short Term Goal (STG) Pt will be able to dress w/o inc pain 09/16-pain about every other day -putting shirt/jacket on/ off STG Duration achieved 10/28 Head Of Integrated Media Goal (LTG) pt will be able to do all work tasks and home tasks w/o accommodation or inc pain in LUE 09/16-uses RUE to reach out- avoid LUE still; pain w/ chores 10/28-pulling down trunk now, hasn't tried reach for seatbelt, has been reaching fwd more w/LUE as needed, hasn 't reaching out lat 12/03-still avoids some lat movements and 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 09/16-improved 10/28-cont improvement 12/03-n/t but pt advancing w/ strength tolerance w/exercises LTG Duration 12/31 ROM Short Term Goal (STG) Pt will improve flex and abd of L shoulder by at least 10 deg ea. STG Duration achieved 09/16 Head Of Integrated Media Goal (LTG) Pt will have full L AROM of L shoulder w/o inc pain in order to allow greater ease w/ADLs 10/28-improved ROM but pain still at end range; cleaning still difficult 12/03-gradually inc LTG Duration 12/31 Quick dash Impairment 54.4 Short Term Goal (STG) Pt will improve quick dash score to now greater than 34 to show improved functional ability w/L shoulder. 09/16-no change 10/28-improved to 40.9 12/03-54.5 STG Duration 11/20 Head Of Integrated [employer] Goal (LTG) Pt will improve quick dash score to now greater than 4 to show improved functional ability w/L shoulder. LTG Duration 12/31 Assessment Summary Assessment Pt good effort and improved self postural corections with cuing and use of mirror. Initially reported little pinch feeling anterior L shld but improved with reps and ex. L more equal range to R by end tx. Physical Therapy Plan Frequency and Duration Frequency of Treatment 2x/Week Duration of treatment (weeks) 8 Plan of Care Start Date 10/29/23 Plan of Care End Date 01/01/24 Therapeutic Interventions Therapeutic Interventions Gait Training,Home Exercise Program,Joint Mobilizations, Manual Therapy,Neuromuscular Re-education,Orthotic/ Prosthetic Management,Patient/ Caregiver Education,Self-Care/ Home Management,Soft Tissue Mobilization,Taping, Therapeutic Activities, Therapeutic Exercises Modalities Cold Pack/Ice Massage,Electric Stimulation,Hot Packs, Infrared Therapy,Iontophoresis ,Traction- Mechanical, Ultrasound Other Therapeutic Interventions dexamethasone ionto Next Visit Focus/Plan Next Note Type Treatment Note Next Visit Plan review exercises and cont to work on AAROM to improve shoulder overhead ROM
--- NOTE | 2023-12-21 13:56 | PT.OTN ---
Current Diagnoses Abnormal posture (12/21/23) Weakness (12/21/23) Superior glenoid labrum lesion of left shoulder, subsequent encounter (12/21/23) Strain of unspecified muscle, fascia and tendon at shoulder and upper arm level, left arm, initial encounter (12/21/23) Physical Therapy Treatment Note PT-OP-A Visit Information Start: 08/08/23 08:07 Freq: Status: Active Protocol: Document 12/21/23 12:56 AB (Rec: 12/21/23 13:51 AB [id number]) Out-Patient Physical Therapy Visit Information Visit Information Visit Type Treatment Note Visit Note 12/16 Visit Start Time 13:02 Visit Stop Time 13:47 Visit Number 35 Number of WHEAT CLEANER Visits 3 PT-OP-B Current Condition Start: 08/08/23 08:07 Freq: Status: Active Protocol: Document 08/15/23 14:31 [facility] (Rec: 08/15/23 15:19 [facility] [id number]) Current Condition History of Current Condition Onset Date Jun 11, 2023 Current Complaints L brachium History of Current Condition Pt fell carrying mail bins that broke her fall and felt a sharp pain at that time. It went away but now when she rolls certain ways, or reach w /her arm. She is seeing Dr. Larios. Per pt, w/MRI there is tendonitis, arthritis present and not recommending surgery. A few weeks ago, she reached to grab a cup that was falling and it was sharp pain. She feels like she is losing upper body strength and feels like she is losing ROM and strength B as she is avoiding motion. denies numbness or tingling. pain is sharp w/movement then has a lasting achiness. 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 Pain has not gotten better and in someways has gotten worse w/ the sharp pains. Treatment Goals Patient/Caregiver Goals be able to use arm fully w/o pain PT-OP-C Subjective Start: 08/08/23 08:07 Freq: Status: Active Protocol: Document 12/21/23 12:56 AB (Rec: 12/21/23 13:51 AB [id number]) OP-PT Subjective Patient Comments Patient Comments Patient reports she is not thinking about it as much when reaching for items, shoulder is not popping and is not keeping her awake. PT-OP-F Manual Assessment Start: 08/08/23 08:07 Freq: Status: Active Protocol: Document 08/15/23 14:31 [facility] (Rec: 08/15/23 15:19 [facility] [id number]) Manual Assessments Soft Tissue Assessment Soft Tissue Mobility Assessment tenderness: L pecs, infra & supraspinatus, biceps, & biceps and supra tendon Joint Mobility Assessment Joint Mobility Assessment 1st rib elevation L PT-OP-J Posture/Palpation/Skin Start: 08/08/23 08:07 Freq: Status: Active Protocol: Document 08/15/23 14:31 [facility] (Rec: 08/15/23 15:19 [facility] [id number]) Posture Evaluation [facility] Postural Classification System [facility] Postural Classifications Posterior/Anterior Elbow Flexion Test 1 Comments Posture Comments L>R humerus ant in glenoid, ant tipped, abd, lat tipped L scap, inc kyphosis, mod fwd head PT-OP-K Range of Motion Start: 08/08/23 08:07 Freq: Status: Active Protocol: Document 10/29/23 09:04 [facility] (Rec: 10/29/23 09:48 [facility] [id number]) Shoulder Goniometric Range of Motion Shoulder Left Active Flexion 136 Extension 56 Abduction 103 External Rotation at 90 degrees 52 Abduction External Rotation at 0 degrees Abduction 48 Internal Rotation Behind Back (text) L3 Comments pain PT-OP-L Special Tests Start: 08/08/23 08:07 Freq: Status: Active Protocol: Document 08/15/23 14:31 [facility] (Rec: 08/15/23 15:19 [facility] [id number]) Special Tests Shoulder Special Tests crank Test Results pos biceps loads Test Results pos [place] Test Test Results pain but pain in speeds also Speed's Biceps Test Results pain but pain in obriens also Car Henrik Impingement Test Results neg Neer Impingement Test Results pos Empty Can Test Results neg PT-OP-M Strength Start: 08/08/23 08:07 Freq: Status: Active Protocol: Document 10/29/23 09:04 [facility] (Rec: 10/29/23 09:48 [facility] [id number]) Shoulder Strength Shoulder Manual Muscle Testing Right Flexion 5 Normal Extension 5 Normal Abduction (C5) 5 Normal External Rotation 5 Normal Internal Rotation 5 Normal Left Flexion 4+ Good+ Extension 5 Normal Abduction (C5) 4 Good External Rotation 4+ Good+ Internal Rotation 5 Normal Horizontal Abduction 4 Good Horizontal Adduction 5 Normal Comments pain w/MMT PT-OP-Q Treatments Start: 08/08/23 08:07 Freq: Status: Active Protocol: Document 12/21/23 12:56 AB (Rec: 12/21/23 13:51 AB [id number]) Cardio Equipment Upper Body Ergometer (UBE) Duration (Minutes) 4 RPM 100 Seat Position far back as will go out of way Height 8 Other 2 min fwd 2 min retro Therapeutic Exercises Sitting Exercises ER Sitting Exercise Name elbow on raised table Side left Resistance 1# DB Reps/Minutes X10 without weight X 10 with 1 lb Standing Exercises high row/row Standing Exercise Name 1. low row 2. high row Side bilateral Resistance level 3 green band Reps/Minutes X15 each Comments verbal cues to avoid extending elbows Wall slide flexion Standing Exercise Name with lift off and lower without use of wall Side left Reps/Minutes X10 Comments Verbal cues Manual Therapy Treatment Soft Tissue Mobilization post cuff/ UT/levator scap Body Location post cuff, levator scap, Upper trap Mobilization Type Cross-Friction,Rolling, Sustained Pressure Intensity/Depth Moderate Body Position Sidelying pec Body Location L Mobilization Type Cross-Friction,Rolling Intensity/Depth Moderate Body Position Hooklying Joint Mobilizations GH Joint L Direction AP and INF Grade IV Body Position Hooklying L scapulothoracic Direction into adduction and depression Grade III Body Position RSidelying Manual Techniques PROM left shoulder ER Type ER with UE at side Body Position Hooklying Reps/Duration 2 Comments contract relax Self-Care/Home Management Treatment Education Other Education Mleissa made aware that she will not be able to attend physical therapy for her shoulder next week due to her THR sugery on Sunday. Patient made aware that she will not be able to drive for a significant amount of time post hip replacement surgery and will need to plan to have someone drive her to future appointments. ( current shoulder appts sched for 3 3 weeks post hip surgery/pt made aware ) Patient advised MD must clear her for driving, and she must med off of the pain medication and has to be able to press down hard enough on the brake to stop the car. PT-OP-R Modalities Start: 08/08/23 08:07 Freq: Status: Active Protocol: Document 11/22/23 09:04 SP (Rec: 11/22/23 09:51 SP [id number]) Hot Pack/Cold Pack Treatment Cold Pack Location L shoulder Patient Position Supine Patient Tolerance Good PT-OP-T Assessment and Plan Start: 08/08/23 08:07 Freq: Status: Active Protocol: Document 12/21/23 12:56 AB (Rec: 12/21/23 13:51 AB [id number]) Physical Therapy Assessment Goals activity Short Term Goal (STG) Pt will be able to dress w/o inc pain 09/16-pain about every other day -putting shirt/jacket on/ off STG Duration achieved 10/28 Dining Car Waiter/Waitress Goal (LTG) pt will be able to do all work tasks and home tasks w/o accommodation or inc pain in LUE 09/16-uses RUE to reach out- avoid LUE still; pain w/ chores 10/28-pulling down trunk now, hasn't tried reach for seatbelt, has been reaching fwd more w/LUE as needed, hasn 't reaching out lat 12/03-still avoids some lat movements and 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 09/16-improved 10/28-cont improvement 12/03-n/t but pt advancing w/ strength tolerance w/exercises LTG Duration 12/31 ROM Short Term Goal (STG) Pt will improve flex and abd of L shoulder by at least 10 deg ea. STG Duration achieved 09/16 Assisted Goal (LTG) Pt will have full L AROM of L shoulder w/o inc pain in order to allow greater ease w/ADLs 10/28-improved ROM but pain still at end range; cleaning still difficult 12/03-gradually inc LTG Duration 12/31 Quick dash Impairment 54.4 Short Term Goal (STG) Pt will improve quick dash score to now greater than 34 to show improved functional ability w/L shoulder. 09/16-no change 10/28-improved to 40.9 5/28-54.5 STG Duration 11/20 Dining Car Waiter/Waitress Goal (LTG) Pt will improve quick dash score to now greater than 4 to show improved functional ability w/L shoulder. LTG Duration 12/31 Assessment Summary Assessment AROM left shoulder flexion 142 deg end of session with Melissa reporting feeling tired. Increased AROM left shoulder flexion should allow Melissa to reach tiems placed at higher levels in the home. Physical Therapy Plan Frequency and Duration Frequency of Treatment 2x/Week Duration of treatment (weeks) 8 Plan of Care Start Date 10/29/23 Plan of Care End Date 01/01/24 Next Visit Focus/Plan Next Note Type Treatment Note Next Visit Plan review exercises and cont to work on AAROM to improve shoulder overhead ROM
--- NOTE | 2023-12-24 14:07 | PT.OTN ---
Current Diagnoses Abnormal posture (12/24/23) Weakness (12/24/23) Superior glenoid labrum lesion of left shoulder, subsequent encounter (12/24/23) Strain of unspecified muscle, fascia and tendon at shoulder and upper arm level, left arm, initial encounter (12/24/23) Physical Therapy Treatment Note PT-OP-A Visit Information Start: 08/08/23 08:07 Freq: Status: Active Protocol: Document 12/24/23 09:03 [facility] (Rec: 12/24/23 09:47 [facility] [id number]) Out-Patient Physical Therapy Visit Information Visit Information Visit Type Progress Note Visit Start Time 09:05 Visit Stop Time 09:45 Visit Number 36 Number of SENIOR SAS PROGRAMMER Visits 0 PT-OP-B Current Condition Start: 08/08/23 08:07 Freq: Status: Active Protocol: Document 08/15/23 14:31 [facility] (Rec: 08/15/23 15:19 [facility] [id number]) Current Condition History of Current Condition Onset Date Jun 11, 2023 Current Complaints L brachium History of Current Condition Pt fell carrying mail bins that broke her fall and felt a sharp pain at that time. It went away but now when she rolls certain ways, or reach w /her arm. She is seeing Dr. Larios. Per pt, w/MRI there is tendonitis, arthritis present and not recommending surgery. A few weeks ago, she reached to grab a cup that was falling and it was sharp pain. She feels like she is losing upper body strength and feels like she is losing ROM and strength B as she is avoiding motion. denies numbness or tingling. pain is sharp w/movement then has a lasting achiness. 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 Pain has not gotten better and in someways has gotten worse w/ the sharp pains. Treatment Goals Patient/Caregiver Goals be able to use arm fully w/o pain PT-OP-C Subjective Start: 08/08/23 08:07 Freq: Status: Active Protocol: Document 12/24/23 09:03 [facility] (Rec: 12/24/23 09:47 [facility] [id number]) OP-PT Subjective Patient Comments Patient Comments Pt reports the main thing she notices is it is hard to do swim stroke. She feels like range improved. Patient Questionnaires Quick Dash- Upper Extremity Quick Dash UE Score 50 Quick Dash- Work and Sports Modules Quick Dash W&S Score sport-0; work 18.75 PT-OP-F Manual Assessment Start: 08/08/23 08:07 Freq: Status: Active Protocol: Document 08/15/23 14:31 [facility] (Rec: 08/15/23 15:19 [facility] [id number]) Manual Assessments Soft Tissue Assessment Soft Tissue Mobility Assessment tenderness: L pecs, infra & supraspinatus, biceps, & biceps and supra tendon Joint Mobility Assessment Joint Mobility Assessment 1st rib elevation L PT-OP-J Posture/Palpation/Skin Start: 08/08/23 08:07 Freq: Status: Active Protocol: Document 08/15/23 14:31 [facility] (Rec: 08/15/23 15:19 [facility] [id number]) Posture Evaluation [facility] Postural Classification System [facility] Postural Classifications Posterior/Anterior Elbow Flexion Test 1 Comments Posture Comments L>R humerus ant in glenoid, ant tipped, abd, lat tipped L scap, inc kyphosis, mod fwd head PT-OP-K Range of Motion Start: 08/08/23 08:07 Freq: Status: Active Protocol: Document 12/24/23 09:03 [facility] (Rec: 12/24/23 09:47 [facility] [id number]) Shoulder Goniometric Range of Motion Shoulder Left Active Flexion 148 Extension 58 Abduction 139 External Rotation at 90 degrees 35 Abduction External Rotation at 0 degrees Abduction 66 Internal Rotation Behind Back (text) T11 Comments pain at end ranges (abd and 90 /90 ER worst) PT-OP-L Special Tests Start: 08/08/23 08:07 Freq: Status: Active Protocol: Document 08/15/23 14:31 [facility] (Rec: 08/15/23 15:19 [facility] [id number]) Special Tests Shoulder Special Tests crank Test Results pos biceps loads Test Results pos [place] Test Test Results pain but pain in speeds also Speed's Biceps Test Results pain but pain in obriens also Car Henrik Impingement Test Results neg Neer Impingement Test Results pos Empty Can Test Results neg PT-OP-M Strength Start: 08/08/23 08:07 Freq: Status: Active Protocol: Document 12/24/23 09:03 [facility] (Rec: 12/24/23 09:47 [facility] [id number]) Shoulder Strength Shoulder Manual Muscle Testing Left Flexion 4+ Good+ Extension 5 Normal Abduction (C5) 4+ Good+ External Rotation 4+ Good+ Internal Rotation 5 Normal Horizontal Abduction 4 Good Horizontal Adduction 5 Normal Comments stiff pain w/MMT PT-OP-Q Treatments Start: 08/08/23 08:07 Freq: Status: Active Protocol: Document 12/24/23 09:03 [facility] (Rec: 12/24/23 09:47 [facility] [id number]) Therapeutic Exercises Supine Exercises rotation Supine Exercise Name 90/90 IR/ER Side left Equipment Used 1# Reps/Minutes 20 Sitting Exercises flex Side left Equipment Used L1 Reps/Minutes 15 abd Side left Equipment Used L1 Reps/Minutes 2x7 Habd Side bilateral Equipment Used L2 Reps/Minutes 2x5 ER at side Sitting Exercise Name both arms Side bilateral Equipment Used L2 Reps/Minutes 12 ER Sitting Exercise Name elbow on raised table Side left Resistance 1# DB Reps/Minutes X10 without weight X 15 with 1 lb Manual Therapy Treatment Soft Tissue Mobilization pec Body Location L Mobilization Type Rolling,Sustained Pressure Intensity/Depth Moderate Body Position Hooklying Comments w/rot Joint Mobilizations GH Grade IV Comments AP and PA FM 90/90 ER; inf w/ abd FM PT-OP-R Modalities Start: 08/08/23 08:07 Freq: Status: Active Protocol: Document 11/22/23 09:04 SP (Rec: 11/22/23 09:51 SP [id number]) Hot Pack/Cold Pack Treatment Cold Pack Location L shoulder Patient Position Supine Patient Tolerance Good PT-OP-T Assessment and Plan Start: 08/08/23 08:07 Freq: Status: Active Protocol: Document 12/24/23 09:03 [facility] (Rec: 12/24/23 09:47 [facility] [id number]) Physical Therapy Assessment Goals activity Short Term Goal (STG) Pt will be able to dress w/o inc pain 09/16-pain about every other day -putting shirt/jacket on/ off STG Duration achieved 10/28 Advertising Manager Goal (LTG) pt will be able to do all work tasks and home tasks w/o accommodation or inc pain in LUE 09/16-uses RUE to reach out- avoid LUE still; pain w/ chores 10/28-pulling down trunk now, hasn't tried reach for seatbelt, has been reaching fwd more w/LUE as needed, hasn 't reaching out lat 12/03-still avoids some lat movements and 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 09/16-improved 10/28-cont improvement 12/03-n/t but pt advancing w/ strength tolerance w/exercises 12/23-08/13 EFT, improved MMT L but pain LTG Duration 02/17 ROM Short Term Goal (STG) Pt will improve flex and abd of L shoulder by at least 10 deg ea. STG Duration achieved 09/16 Advertising Manager Goal (LTG) Pt will have full L AROM of L shoulder w/o inc pain in order to allow greater ease w/ADLs 10/28-improved ROM but pain still at end range; cleaning still difficult 12/03-gradually inc 12/23- LTG Duration 02/17 Quick dash Impairment 54.4 Short Term Goal (STG) Pt will improve quick dash score to now greater than 34 to show improved functional ability w/L shoulder. 09/16-no change 10/28-improved to 40.9 12/03-54.5 12/23-50 STG Duration 11/20 Snf Goal (LTG) Pt will improve quick dash score to now greater than 4 to show improved functional ability w/L shoulder. LTG Duration 02/17 Assessment Summary Assessment Pt has made good progress w/ ROM since last progress note and is most liimited w/abd and 90/90 ER/IR, but did show abd improvement along w/strength improvement. FUnctionally, pt reports overall feeling better , but worried aobut not getting full mobility back. Pt to have R DEIDRA tomorrow which will complicate L shoulder recovery as will not have as great of ease to access to PT. COnt PT to work on strength and mobility. Physical Therapy Plan Frequency and Duration Frequency of Treatment 2x/Week Duration of treatment (weeks) 8 Plan of Care Start Date 12/24/23 Plan of Care End Date 02/18/24 Therapeutic Interventions Therapeutic Interventions Gait Training,Home Exercise Program,Joint Mobilizations, Manual Therapy,Neuromuscular Re-education,Orthotic/ Prosthetic Management,Patient/ Caregiver Education,Self-Care/ Home Management,Soft Tissue Mobilization,Taping, Therapeutic Activities, Therapeutic Exercises Modalities Cold Pack/Ice Massage,Electric Stimulation,Hot Packs, Infrared Therapy,Iontophoresis ,Traction- Mechanical, Ultrasound Other Therapeutic Interventions dexamethasone ionto Next Visit Focus/Plan Next Note Type Treatment Note Next Visit Plan review exercises and work on getting full 90/90 ER
--- NOTE | 2023-12-24 14:08 | PT.OPPOC ---
Physical, Occupational & Speech Therapy At [facility] Current Diagnoses Abnormal posture (12/24/23) Weakness (12/24/23) Superior glenoid labrum lesion of left shoulder, subsequent encounter (12/24/23) Strain of unspecified muscle, fascia and tendon at shoulder and upper arm level, left arm, initial encounter (12/24/23) Visit Care Team Role Provider Type Keny Ibarra MD Family Provider Physician Primary Care Provider Specialty: Family Practice Address: [address] [place] [address], [address], [address] Email: [email or web address] Mello Yates MD Attending Provider Non-Staff Referring Provider Specialty: Physical Medicine and Rehab Address: [address] [place] [address], [id number] Email: Plan Of Care PT-OP-T Assessment and Plan Start: 08/08/23 08:07 Freq: Status: Active Protocol: Document 12/24/23 09:03 [facility] (Rec: 12/24/23 09:47 [facility] [id number]) Physical Therapy Assessment Goals activity Short Term Goal (STG) Pt will be able to dress w/o inc pain 09/16-pain about every other day -putting shirt/jacket on/ off STG Duration achieved 10/28 Custodial Goal (LTG) pt will be able to do all work tasks and home tasks w/o accommodation or inc pain in LUE 09/16-uses RUE to reach out- avoid LUE still; pain w/ chores 10/28-pulling down trunk now, hasn't tried reach for seatbelt, has been reaching fwd more w/LUE as needed, hasn 't reaching out lat 12/03-still avoids some lat movements and pain w/heavy handling 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 09/16-improved 10/28-cont improvement 12/03-n/t but pt advancing w/ strength tolerance w/exercises 12/23-2 EFT, improved MMT L but pain LTG Duration 02/17 ROM Short Term Goal (STG) Pt will improve flex and abd of L shoulder by at least 10 deg ea. STG Duration achieved 09/16 Custodial Goal (LTG) Pt will have full L AROM of L shoulder w/o inc pain in order to allow greater ease w/ADLs 10/28-improved ROM but pain still at end range; cleaning still difficult 12/03-gradually inc 12/23- LTG Duration 02/17 Quick dash Impairment 54.4 Short Term Goal (STG) Pt will improve quick dash score to now greater than 34 to show improved functional ability w/L shoulder. 09/16-no change 10/28-improved to 40.9 12/03-54.5 12/23-50 STG Duration 11/20 Lug Breaker And Wire Puller Goal (LTG) Pt will improve quick dash score to now greater than 4 to show improved functional ability w/L shoulder. LTG Duration 02/17 Assessment Summary Assessment Pt has made good progress w/ ROM since last progress note and is most liimited w/abd and 90/90 ER/IR, but did show abd improvement along w/strength improvement. FUnctionally, pt reports overall feeling better , but worried aobut not getting full mobility back. Pt to have R DEIDRA tomorrow which will complicate L shoulder recovery as will not have as great of ease to access to PT. COnt PT to work on strength and mobility. Physical Therapy Plan Frequency and Duration Frequency of Treatment 2x/Week Duration of treatment (weeks) 8 Plan of Care Start Date 12/24/23 Plan of Care End Date 02/18/24 Therapeutic Interventions Therapeutic Interventions Gait Training,Home Exercise Program,Joint Mobilizations, Manual Therapy,Neuromuscular Re-education,Orthotic/ Prosthetic Management,Patient/ Caregiver Education,Self-Care/ Home Management,Soft Tissue Mobilization,Taping, Therapeutic Activities, Therapeutic Exercises Modalities Cold Pack/Ice Massage,Electric Stimulation,Hot Packs, Infrared Therapy,Iontophoresis ,Traction- Mechanical, Ultrasound Other Therapeutic Interventions dexamethasone ionto Next Visit Focus/Plan Next Note Type Treatment Note Next Visit Plan review exercises and work on getting full 90/90 ER Plan of Care Dates Plan of Care Start Date 12/24/23 Plan of Care End Date 02/18/24 Electronically Signed by: Radha Nj, PT 12/24/23 1043 If you are in agreement with this Plan of Care, please return a signed and dated copy. I have reviewed this Plan of Care and certify that the skilled therapy services above are required to meet the patient?s needs. Physician Signature Date Printed Name and Credentials Clinical Instructor Signature Printed Name and Credentials
--- NOTE | 2024-04-01 17:42 | PT.OTRE ---
Current Diagnoses Abnormal posture (04/01/24) Weakness (04/01/24) Superior glenoid labrum lesion of left shoulder, subsequent encounter (04/01/24) Strain of unspecified muscle, fascia and tendon at shoulder and upper arm level, left arm, initial encounter (04/01/24) Past Medical History (Last Reviewed 02/05/24 @ 12:37 by Catherine Valente DO) Achilles tendinitis, right leg Restless leg Visit Care Team Role Provider Type Keny Ibarra MD Family Provider Physician Primary Care Provider Specialty: Family Practice Address: [address] [place] [address], [address], [address] Email: [email or web address] Mello Yates MD Attending Provider Non-Staff Referring Provider Specialty: Physical Medicine and Rehab Address: [address] [place] [address], [id number] Email: Physical Therapy Re-Evaluation PT-OP-A Visit Information Start: 08/08/23 08:07 Freq: Status: Active Protocol: Document 04/01/24 16:00 [facility] (Rec: 04/01/24 16:44 [facility] [id number]) Out-Patient Physical Therapy Visit Information Visit Information Visit Type Re-Evaluation Visit Start Time 16:00 Visit Stop Time 16:34 Visit Number 37 Number of WASHHOUSE HAND Visits 0 PT-OP-B Current Condition Start: 08/08/23 08:07 Freq: Status: Active Protocol: Document 04/01/24 16:00 [facility] (Rec: 04/01/24 16:44 [facility] [id number]) Current Condition History of Current Condition History of Current Condition Pt fell carrying mail bins that broke her fall and felt a sharp pain at that time. It went away but now when she rolls certain ways, or reach w /her arm. She is seeing Dr. Larios. Per pt, w/MRI there is tendonitis, arthritis present and not recommending surgery. A few weeks ago, she reached to grab a cup that was falling and it was sharp pain. She feels like she is losing upper body strength and feels like she is losing ROM and strength B as she is avoiding motion. denies numbness or tingling. pain is sharp w/movement then has a lasting achiness. 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 Pain has not gotten better and in someways has gotten worse w/ the sharp pains. ADDENDUM 04/01/24: Pt returns to skilled therapy for continuation of treatment of shoulder injury following pt's change in medical status following her right DEIDRA. Pt reports that she feels her shoulder has largely healed, however is still mildly limited with internal rotation , and she has a mild pain with swimming motion, which makes her hesitate to return to the local pool for exercise. PT-OP-C Subjective Start: 08/08/23 08:07 Freq: Status: Active Protocol: Document 04/01/24 16:00 [facility] (Rec: 04/01/24 16:44 [facility] [id number]) OP-PT Subjective Patient Comments Patient Comments I have to admit, I haven't really done any of my shoulder exercises over the last three months, I've been focused on my hip. PT-OP-F Manual Assessment Start: 08/08/23 08:07 Freq: Status: Active Protocol: Document 04/01/24 16:00 [facility] (Rec: 04/01/24 16:44 [facility] [id number]) Manual Assessments Soft Tissue Assessment Soft Tissue Mobility Assessment mild tenderness: L infraspinatus, supraspinatus PT-OP-J Posture/Palpation/Skin Start: 08/08/23 08:07 Freq: Status: Active Protocol: Document 08/15/23 14:31 [facility] (Rec: 08/15/23 15:19 [facility] [id number]) Posture Evaluation Scarlett Postural Classification System Scarlett Postural Classifications Posterior/Anterior Elbow Flexion Test 1 Comments Posture Comments L>R humerus ant in glenoid, ant tipped, abd, lat tipped L scap, inc kyphosis, mod fwd head PT-OP-K Range of Motion Start: 08/08/23 08:07 Freq: Status: Active Protocol: Document 04/01/24 16:00 [facility] (Rec: 04/01/24 16:44 [facility] [id number]) Shoulder Goniometric Range of Motion Shoulder Measured in Degrees Left Passive Testing Position Sitting Flexion 165 Abduction 180 External Rotation at 45 degrees 70 Abduction Right Active Flexion 165 Abduction 180 External Rotation at 0 degrees Abduction 70 Internal Rotation Behind Back (text) T6 Left Active Flexion 160 Abduction 180 External Rotation at 0 degrees Abduction 65 Internal Rotation Behind Back (text) T10 PT-OP-L Special Tests Start: 08/08/23 08:07 Freq: Status: Active Protocol: Document 08/15/23 14:31 LR (Rec: 08/15/23 15:19 [facility] [id number]) Special Tests Shoulder Special Tests crank Test Results pos biceps loads Test Results pos [place] Test Test Results pain but pain in speeds also Speed's Biceps Test Results pain but pain in obriens also Car Henrik Impingement Test Results neg Neer Impingement Test Results pos Empty Can Test Results neg PT-OP-M Strength Start: 08/08/23 08:07 Freq: Status: Active Protocol: Document 04/01/24 16:00 [facility] (Rec: 04/01/24 16:44 [facility] [id number]) Shoulder Strength Shoulder Manual Muscle Testing Right Flexion 5 Normal Extension 5 Normal Abduction (C5) 5 Normal External Rotation 5 Normal Internal Rotation 5 Normal Horizontal Abduction 5 Normal Horizontal Adduction 5 Normal Left Flexion 4+ Good+ Extension 5 Normal Abduction (C5) 4+ Good+ External Rotation 4+ Good+ Internal Rotation 5 Normal Horizontal Abduction 4+ Good+ Horizontal Adduction 5 Normal PT-OP-Q Treatments Start: 08/08/23 08:07 Freq: Status: Active Protocol: Document 04/01/24 16:00 [facility] (Rec: 04/01/24 16:44 [facility] [id number]) Therapeutic Exercises Sitting Exercises IR Sitting Exercise Name IR towel stretch Side left ER at side Sitting Exercise Name ER/IR Side left Resistance Lv 2 Manual Therapy Treatment Soft Tissue Mobilization post cuff/ UT/levator scap Body Location post cuff, levator scap, Upper trap Mobilization Type Cross-Friction,Sustained Pressure Intensity/Depth Moderate Body Position Sitting PT-OP-R Modalities Start: 08/08/23 08:07 Freq: Status: Active Protocol: Document 11/22/23 09:04 SP (Rec: 11/22/23 09:51 SP [id number]) Hot Pack/Cold Pack Treatment Cold Pack Location L shoulder Patient Position Supine Patient Tolerance Good PT-OP-T Assessment and Plan Start: 08/08/23 08:07 Freq: Status: Active Protocol: Document 04/01/24 16:00 [facility] (Rec: 04/01/24 17:41 [facility] [id number]) Physical Therapy Assessment Impairments Impairments Activity Tolerance,Functional Activities,Functional Mobility ,Pain,ROM,Strength Goals activity Short Term Goal (STG) Pt will be able to dress w/o inc pain 09/16-pain about every other day -putting shirt/jacket on/ off STG Duration Goal Met Storm Window Installer Goal (LTG) Pt will be able to return to pool swimming without left shoulder pain LTG Duration 05/01/24 strength Short Term Goal (STG) Pt will be indep w/HEP STG Duration Goal Met Jail Goal (LTG) Pt will score at least 4+/5 on all LUE MMT and 3/ EFT in order to show improved stabiltiy to allow her to do her work tasks. 04/01/24: Improving LTG Duration 05/01/24 ROM Short Term Goal (STG) Pt will improve flex and abd of L shoulder by at least 10 deg ea. STG Duration Goal Met Jail Goal (LTG) Pt will have full L AROM of L shoulder w/o inc pain in order to allow greater ease w/ADLs 04/01: Mild limitations with left IR LTG Duration 05/01/24 Quick dash Impairment 54.4 Short Term Goal (STG) Pt will improve quick dash score to now greater than 34 to show improved functional ability w/L shoulder. STG Duration 04/15/24 Jail Goal (LTG) Pt will improve quick dash score to now greater than 4 to show improved functional ability w/L shoulder. LTG Duration 05/01/24 Assessment Summary Assessment Pt returns for reassessment of left shoulder dysfunction following lapse in PT secondary to right DEIDRA. Pt exhibiting improvement in nearly all areas, left strength and range of motion nearly equal to right. Pt does demonstrate some mild limitations, specifically in left GH internal rotation, as well as complaints shoulder still feels a little unstable with swim stroke motion. Pt will likely benefit from return to focus on skilled therapeutic intervention in order to improve mobility and stability of left glenohumeral joint to return to prior functional activities, including swimming regularly. Physical Therapy Plan Frequency and Duration Frequency of Treatment 2x/Week Plan of Care Start Date 04/01/24 Plan of Care End Date 05/01/24 Therapeutic Interventions Therapeutic Interventions Gait Training,Home Exercise Program,Joint Mobilizations, Manual Therapy,Neuromuscular Re-education,Orthotic/ Prosthetic Management,Patient/ Caregiver Education,Self-Care/ Home Management,Soft Tissue Mobilization,Taping, Therapeutic Activities, Therapeutic Exercises Modalities Cold Pack/Ice Massage,Electric Stimulation,Hot Packs, Infrared Therapy,Iontophoresis ,Traction- Mechanical, Ultrasound Other Therapeutic Interventions dexamethasone ionto Next Visit Focus/Plan Next Note Type Treatment Note Next Visit Plan review exercises and work on getting full IR
--- NOTE | 2024-04-01 17:42 | PT.OPPOC ---
Physical, Occupational & Speech Therapy At [facility] Current Diagnoses Abnormal posture (04/01/24) Weakness (04/01/24) Superior glenoid labrum lesion of left shoulder, subsequent encounter (04/01/24) Strain of unspecified muscle, fascia and tendon at shoulder and upper arm level, left arm, initial encounter (04/01/24) Visit Care Team Role Provider Type Keny Ibarra MD Family Provider Physician Primary Care Provider Specialty: Family Practice Address: [address] [place] [address], [address], [address] Email: [email or web address] Mello Yates MD Attending Provider Non-Staff Referring Provider Specialty: Physical Medicine and Rehab Address: [address] [place] [address], [id number] Email: Plan Of Care PT-OP-B Current Condition Start: 08/08/23 08:07 Freq: Status: Active Protocol: Document 04/01/24 16:00 [facility] (Rec: 04/01/24 16:44 [facility] [id number]) Current Condition History of Current Condition History of Current Condition Pt fell carrying mail bins that broke her fall and felt a sharp pain at that time. It went away but now when she rolls certain ways, or reach w /her arm. She is seeing Dr. Larios. Per pt, w/MRI there is tendonitis, arthritis present and not recommending surgery. A few weeks ago, she reached to grab a cup that was falling and it was sharp pain. She feels like she is losing upper body strength and feels like she is losing ROM and strength B as she is avoiding motion. denies numbness or tingling. pain is sharp w/movement then has a lasting achiness. 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 Pain has not gotten better and in someways has gotten worse w/ the sharp pains. ADDENDUM 04/01/24: Pt returns to skilled therapy for continuation of treatment of shoulder injury following pt's change in medical status following her right DEIDRA. Pt reports that she feels her shoulder has largely healed, however is still mildly limited with internal rotation , and she has a mild pain with swimming motion, which makes her hesitate to return to the local pool for exercise. PT-OP-T Assessment and Plan Start: 08/08/23 08:07 Freq: Status: Active Protocol: Document 04/01/24 16:00 [facility] (Rec: 04/01/24 17:41 [facility] [id number]) Physical Therapy Assessment Impairments Impairments Activity Tolerance,Functional Activities,Functional Mobility ,Pain,ROM,Strength Goals activity Short Term Goal (STG) Pt will be able to dress w/o inc pain 09/16-pain about every other day -putting shirt/jacket on/ off STG Duration Goal Met Flux Mixer Goal (LTG) Pt will be able to return to pool swimming without left shoulder pain LTG Duration 05/01/24 strength Short Term Goal (STG) Pt will be indep w/HEP STG Duration Goal Met Flux Mixer Goal (LTG) Pt will score at least 4+/5 on all LUE MMT and 3/5 EFT in order to show improved stabiltiy to allow her to do her work tasks. 04/01/24: Improving LTG Duration 05/01/24 ROM Short Term Goal (STG) Pt will improve flex and abd of L shoulder by at least 10 deg ea. STG Duration Goal Met Flux Mixer Goal (LTG) Pt will have full L AROM of L shoulder w/o inc pain in order to allow greater ease w/ADLs 04/01: Mild limitations with left IR LTG Duration 05/01/24 Quick dash Impairment 54.4 Short Term Goal (STG) Pt will improve quick dash score to now greater than 34 to show improved functional ability w/L shoulder. STG Duration 04/15/24 Flux Mixer Goal (LTG) Pt will improve quick dash score to now greater than 4 to show improved functional ability w/L shoulder. LTG Duration 05/01/24 Assessment Summary Assessment Pt returns for reassessment of left shoulder dysfunction following lapse in PT secondary to right DEIDRA. Pt exhibiting improvement in nearly all areas, left strength and range of motion nearly equal to right. Pt does demonstrate some mild limitations, specifically in left GH internal rotation, as well as complaints shoulder still feels a little unstable with swim stroke motion. Pt will likely benefit from return to focus on skilled therapeutic intervention in order to improve mobility and stability of left glenohumeral joint to return to prior functional activities, including swimming regularly. Physical Therapy Plan Frequency and Duration Frequency of Treatment 2x/Week Plan of Care Start Date 04/01/24 Plan of Care End Date 05/01/24 Therapeutic Interventions Therapeutic Interventions Gait Training,Home Exercise Program,Joint Mobilizations, Manual Therapy,Neuromuscular Re-education,Orthotic/ Prosthetic Management,Patient/ Caregiver Education,Self-Care/ Home Management,Soft Tissue Mobilization,Taping, Therapeutic Activities, Therapeutic Exercises Modalities Cold Pack/Ice Massage,Electric Stimulation,Hot Packs, Infrared Therapy,Iontophoresis ,Traction- Mechanical, Ultrasound Other Therapeutic Interventions dexamethasone ionto Next Visit Focus/Plan Next Note Type Treatment Note Next Visit Plan review exercises and work on getting full IR Plan of Care Dates Plan of Care Start Date 04/01/24 Plan of Care End Date 05/01/24 Electronically Signed by: Massimo Graves, PT 04/01/24 0929 If you are in agreement with this Plan of Care, please return a signed and dated copy. I have reviewed this Plan of Care and certify that the skilled therapy services above are required to meet the patient?s needs. Physician Signature Date Printed Name and Credentials Clinical Instructor Signature Printed Name and Credentials
--- NOTE | 2024-04-08 17:01 | PT.OTN ---
Current Diagnoses Abnormal posture (04/08/24) Weakness (04/08/24) Superior glenoid labrum lesion of left shoulder, subsequent encounter (04/08/24) Strain of unspecified muscle, fascia and tendon at shoulder and upper arm level, left arm, initial encounter (04/08/24) Physical Therapy Treatment Note PT-OP-A Visit Information Start: 08/08/23 08:07 Freq: Status: Active Protocol: Document 04/08/24 16:15 DCW (Rec: 04/08/24 17:01 DCW [id number]) Out-Patient Physical Therapy Visit Information Visit Information Visit Type Treatment Note Visit Start Time 16:15 Visit Stop Time 17:00 Visit Number 38 Number of SPEECH THERAPY ASSISTANT Visits 0 PT-OP-B Current Condition Start: 08/08/23 08:07 Freq: Status: Active Protocol: Document 04/01/24 16:00 DCW (Rec: 04/01/24 16:44 DCW [id number]) Current Condition History of Current Condition History of Current Condition Pt fell carrying mail bins that broke her fall and felt a sharp pain at that time. It went away but now when she rolls certain ways, or reach w /her arm. She is seeing Dr. Larios. Per pt, w/MRI there is tendonitis, arthritis present and not recommending surgery. A few weeks ago, she reached to grab a cup that was falling and it was sharp pain. She feels like she is losing upper body strength and feels like she is losing ROM and strength B as she is avoiding motion. denies numbness or tingling. pain is sharp w/movement then has a lasting achiness. 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 Pain has not gotten better and in someways has gotten worse w/ the sharp pains. ADDENDUM 04/01/24: Pt returns to skilled therapy for continuation of treatment of shoulder injury following pt's change in medical status following her right DEIDRA. Pt reports that she feels her shoulder has largely healed, however is still mildly limited with internal rotation , and she has a mild pain with swimming motion, which makes her hesitate to return to the local pool for exercise. PT-OP-C Subjective Start: 08/08/23 08:07 Freq: Status: Active Protocol: Document 04/08/24 16:15 DCW (Rec: 04/08/24 17:01 DCW [id number]) OP-PT Subjective Patient Comments Patient Comments I think I'm improving a bit. PT-OP-F Manual Assessment Start: 08/08/23 08:07 Freq: Status: Active Protocol: Document 04/01/24 16:00 DCW (Rec: 04/01/24 16:44 DCW [id number]) Manual Assessments Soft Tissue Assessment Soft Tissue Mobility Assessment mild tenderness: L infraspinatus, supraspinatus PT-OP-J Posture/Palpation/Skin Start: 08/08/23 08:07 Freq: Status: Active Protocol: Document 08/15/23 14:31 [facility] (Rec: 08/15/23 15:19 [facility] [id number]) Posture Evaluation [facility] Postural Classification System [facility] Postural Classifications Posterior/Anterior Elbow Flexion Test 1 Comments Posture Comments L>R humerus ant in glenoid, ant tipped, abd, lat tipped L scap, inc kyphosis, mod fwd head PT-OP-K Range of Motion Start: 08/08/23 08:07 Freq: Status: Active Protocol: Document 04/01/24 16:00 DCW (Rec: 04/01/24 16:44 DCW [id number]) Shoulder Goniometric Range of Motion Shoulder Left Passive Testing Position Sitting Flexion 165 Abduction 180 External Rotation at 45 degrees 70 Abduction Right Active Flexion 165 Abduction 180 External Rotation at 0 degrees Abduction 70 Internal Rotation Behind Back (text) T6 Left Active Flexion 160 Abduction 180 External Rotation at 0 degrees Abduction 65 Internal Rotation Behind Back (text) T10 PT-OP-L Special Tests Start: 08/08/23 08:07 Freq: Status: Active Protocol: Document 08/15/23 14:31 [facility] (Rec: 08/15/23 15:19 [facility] [id number]) Special Tests Shoulder Special Tests crank Test Results pos biceps loads Test Results pos Faulk Test Test Results pain but pain in speeds also Speed's Biceps Test Results pain but pain in obriens also Car Henrik Impingement Test Results neg Neer Impingement Test Results pos Empty Can Test Results neg PT-OP-M Strength Start: 08/08/23 08:07 Freq: Status: Active Protocol: Document 04/01/24 16:00 DCW (Rec: 04/01/24 16:44 DCW [id number]) Shoulder Strength Shoulder Manual Muscle Testing Right Flexion 5 Normal Extension 5 Normal Abduction (C5) 5 Normal External Rotation 5 Normal Internal Rotation 5 Normal Horizontal Abduction 5 Normal Horizontal Adduction 5 Normal Left Flexion 4+ Good+ Extension 5 Normal Abduction (C5) 4+ Good+ External Rotation 4+ Good+ Internal Rotation 5 Normal Horizontal Abduction 4+ Good+ Horizontal Adduction 5 Normal PT-OP-Q Treatments Start: 08/08/23 08:07 Freq: Status: Active Protocol: Document 04/08/24 16:15 DCW (Rec: 04/08/24 17:01 DCW [id number]) Therapeutic Exercises Supine Exercises serratus punch Supine Exercise Name Serratus Punch /c PVC Side bilateral Equipment Used 5# Reps/Minutes x20 flex Supine Exercise Name flex w/ PVC Side bilateral Resistance 5# Reps/Minutes x20 Sitting Exercises ER/IR Sitting Exercise Name ER/IR /c arm at 90/90 Side left Resistance Red 3.3# ball Standing Exercises Ball/Wall Standing Exercise Name Ball/wall circles Side left Comments CW/CCW IR Standing Exercise Name Pulleys - IR Side left Other Exercises Body Blade Other Exercise Name Body Blade - Flexion, Abduction Side left Resistance Yellow Manual Therapy Treatment Consent Patient gave verbal consent for manual Yes treatment Soft Tissue Mobilization post cuff/ UT/levator scap Body Location post cuff, levator scap, Upper trap Mobilization Type Cross-Friction,Sustained Pressure Intensity/Depth Moderate Body Position Hooklying biceps Body Location L biceps and delt Mobilization Type Rolling,Strumming,Sustained Pressure Intensity/Depth Moderate Body Position Supine PT-OP-R Modalities Start: 08/08/23 08:07 Freq: Status: Active Protocol: Document 11/22/23 09:04 SP (Rec: 11/22/23 09:51 SP [id number]) Hot Pack/Cold Pack Treatment Cold Pack Location L shoulder Patient Position Supine Patient Tolerance Good PT-OP-T Assessment and Plan Start: 08/08/23 08:07 Freq: Status: Active Protocol: Document 04/08/24 16:15 DCW (Rec: 04/08/24 17:01 DCW [id number]) Physical Therapy Assessment Impairments Impairments Activity Tolerance,Functional Activities,Functional Mobility ,Pain,ROM,Strength Goals activity Short Term Goal (STG) Pt will be able to dress w/o inc pain 09/16-pain about every other day -putting shirt/jacket on/ off STG Duration Goal Met Halfway Goal (LTG) Pt will be able to return to pool swimming without left shoulder pain LTG Duration 05/01/24 strength Short Term Goal (STG) Pt will be indep w/HEP STG Duration Goal Met Windows Vmware Engineer Goal (LTG) Pt will score at least 4+/5 on all LUE MMT and 3/5 EFT in order to show improved stabiltiy to allow her to do her work tasks. 04/01/24: Improving LTG Duration 05/01/24 ROM Short Term Goal (STG) Pt will improve flex and abd of L shoulder by at least 10 deg ea. STG Duration Goal Met Windows Vmware Engineer Goal (LTG) Pt will have full L AROM of L shoulder w/o inc pain in order to allow greater ease w/ADLs 04/01: Mild limitations with left IR LTG Duration 05/01/24 Quick dash Impairment 54.4 Short Term Goal (STG) Pt will improve quick dash score to now greater than 34 to show improved functional ability w/L shoulder. STG Duration 04/15/24 Halfway Goal (LTG) Pt will improve quick dash score to now greater than 4 to show improved functional ability w/L shoulder. LTG Duration 05/01/24 Assessment Summary Assessment Pt tolerated well today, although was noticeably struggling with weighted ER/IR due to fatigue and weakness. Continue to focus on shoulder mobility and strength Physical Therapy Plan Frequency and Duration Frequency of Treatment 2x/Week Plan of Care Start Date 04/01/24 Plan of Care End Date 05/01/24 Therapeutic Interventions Therapeutic Interventions Gait Training,Home Exercise Program,Joint Mobilizations, Manual Therapy,Neuromuscular Re-education,Orthotic/ Prosthetic Management,Patient/ Caregiver Education,Self-Care/ Home Management,Soft Tissue Mobilization,Taping, Therapeutic Activities, Therapeutic Exercises Modalities Cold Pack/Ice Massage,Electric Stimulation,Hot Packs, Infrared Therapy,Iontophoresis ,Traction- Mechanical, Ultrasound Other Therapeutic Interventions dexamethasone ionto Next Visit Focus/Plan Next Note Type Treatment Note Next Visit Plan review exercises and work on getting full IR
--- NOTE | 2024-04-16 17:00 | PT.OTN ---
Current Diagnoses Abnormal posture (04/16/24) Weakness (04/16/24) Superior glenoid labrum lesion of left shoulder, subsequent encounter (04/16/24) Strain of unspecified muscle, fascia and tendon at shoulder and upper arm level, left arm, initial encounter (04/16/24) Physical Therapy Treatment Note PT-OP-A Visit Information Start: 08/08/23 08:07 Freq: Status: Active Protocol: Document 04/16/24 16:17 DCW (Rec: 04/16/24 17:00 DCW [id number]) Out-Patient Physical Therapy Visit Information Visit Information Visit Type Treatment Note Visit Start Time 16:17 Visit Stop Time 17:00 Visit Number 39 Number of TECHNICAL ACCOUNT EXECUTIVE Visits 0 PT-OP-B Current Condition Start: 08/08/23 08:07 Freq: Status: Active Protocol: Document 04/01/24 16:00 DCW (Rec: 04/01/24 16:44 DCW [id number]) Current Condition History of Current Condition History of Current Condition Pt fell carrying mail bins that broke her fall and felt a sharp pain at that time. It went away but now when she rolls certain ways, or reach w /her arm. She is seeing Dr. Larios. Per pt, w/MRI there is tendonitis, arthritis present and not recommending surgery. A few weeks ago, she reached to grab a cup that was falling and it was sharp pain. She feels like she is losing upper body strength and feels like she is losing ROM and strength B as she is avoiding motion. denies numbness or tingling. pain is sharp w/movement then has a lasting achiness. 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 Pain has not gotten better and in someways has gotten worse w/ the sharp pains. ADDENDUM 04/01/24: Pt returns to skilled therapy for continuation of treatment of shoulder injury following pt's change in medical status following her right DEIDRA. Pt reports that she feels her shoulder has largely healed, however is still mildly limited with internal rotation , and she has a mild pain with swimming motion, which makes her hesitate to return to the local pool for exercise. PT-OP-C Subjective Start: 08/08/23 08:07 Freq: Status: Active Protocol: Document 04/16/24 16:17 DCW (Rec: 04/16/24 17:00 DCW [id number]) OP-PT Subjective Patient Comments Patient Comments Pretty good, I've been doing my shoulder exercises, and they've been good. I had a good workout last time, but it wasn't sore. PT-OP-F Manual Assessment Start: 08/08/23 08:07 Freq: Status: Active Protocol: Document 04/01/24 16:00 DCW (Rec: 04/01/24 16:44 DCW [id number]) Manual Assessments Soft Tissue Assessment Soft Tissue Mobility Assessment mild tenderness: L infraspinatus, supraspinatus PT-OP-J Posture/Palpation/Skin Start: 08/08/23 08:07 Freq: Status: Active Protocol: Document 08/15/23 14:31 [facility] (Rec: 08/15/23 15:19 [facility] [id number]) Posture Evaluation [facility] Postural Classification System [facility] Postural Classifications Posterior/Anterior Elbow Flexion Test 1 Comments Posture Comments L>R humerus ant in glenoid, ant tipped, abd, lat tipped L scap, inc kyphosis, mod fwd head PT-OP-K Range of Motion Start: 08/08/23 08:07 Freq: Status: Active Protocol: Document 04/01/24 16:00 DCW (Rec: 04/01/24 16:44 DCW [id number]) Shoulder Goniometric Range of Motion Shoulder Left Passive Testing Position Sitting Flexion 165 Abduction 180 External Rotation at 45 degrees 70 Abduction Right Active Flexion 165 Abduction 180 External Rotation at 0 degrees Abduction 70 Internal Rotation Behind Back (text) T6 Left Active Flexion 160 Abduction 180 External Rotation at 0 degrees Abduction 65 Internal Rotation Behind Back (text) T10 PT-OP-L Special Tests Start: 08/08/23 08:07 Freq: Status: Active Protocol: Document 08/15/23 14:31 [facility] (Rec: 08/15/23 15:19 [facility] [id number]) Special Tests Shoulder Special Tests crank Test Results pos biceps loads Test Results pos Imperial Test Test Results pain but pain in speeds also Speed's Biceps Test Results pain but pain in obriens also Car Henrik Impingement Test Results neg Neer Impingement Test Results pos Empty Can Test Results neg PT-OP-M Strength Start: 08/08/23 08:07 Freq: Status: Active Protocol: Document 04/01/24 16:00 DCW (Rec: 04/01/24 16:44 DCW [id number]) Shoulder Strength Shoulder Manual Muscle Testing Right Flexion 5 Normal Extension 5 Normal Abduction (C5) 5 Normal External Rotation 5 Normal Internal Rotation 5 Normal Horizontal Abduction 5 Normal Horizontal Adduction 5 Normal Left Flexion 4+ Good+ Extension 5 Normal Abduction (C5) 4+ Good+ External Rotation 4+ Good+ Internal Rotation 5 Normal Horizontal Abduction 4+ Good+ Horizontal Adduction 5 Normal PT-OP-Q Treatments Start: 08/08/23 08:07 Freq: Status: Active Protocol: Document 04/16/24 16:17 DCW (Rec: 04/16/24 17:00 DCW [id number]) Gym Equipment Therapeutic Ball Perturbations Exercise Details Hold ball vs Perturbations Ball Size/Color Blue - 45 cm Body Position Hooklying Comments Hold arms in 90 deg flexion Therapeutic Exercises Supine Exercises serratus punch Supine Exercise Name Serratus Punch /c PVC Side bilateral Equipment Used 5# Reps/Minutes x20 flex Supine Exercise Name flex w/ PVC Side bilateral Resistance 5# Reps/Minutes x20 Sitting Exercises ER/IR Sitting Exercise Name ER/IR /c arm at 90/90 Side left Resistance Blue 4.4# ball Standing Exercises Overhead press Standing Exercise Name Overhead press Side bilateral Resistance 4# dumbbell each Other Exercises Resisted UE Amb Other Exercise Name Resisted UE side-stepping Resistance Green loop Body Blade Other Exercise Name Body Blade - Flexion, Abduction Side left Resistance Yellow Manual Therapy Treatment Consent Patient gave verbal consent for manual Yes treatment Soft Tissue Mobilization post cuff/ UT/levator scap Body Location post cuff, levator scap, Upper trap Mobilization Type Cross-Friction,Sustained Pressure Intensity/Depth Moderate Body Position Sitting PT-OP-R Modalities Start: 08/08/23 08:07 Freq: Status: Active Protocol: Document 11/22/23 09:04 SP (Rec: 11/22/23 09:51 SP [id number]) Hot Pack/Cold Pack Treatment Cold Pack Location L shoulder Patient Position Supine Patient Tolerance Good PT-OP-T Assessment and Plan Start: 08/08/23 08:07 Freq: Status: Active Protocol: Document 04/16/24 16:17 DCW (Rec: 04/16/24 17:00 DCW [id number]) Physical Therapy Assessment Impairments Impairments Activity Tolerance,Functional Activities,Functional Mobility ,Pain,ROM,Strength Goals activity Short Term Goal (STG) Pt will be able to dress w/o inc pain 09/16-pain about every other day -putting shirt/jacket on/ off STG Duration Goal Met Slat Basket Maker Goal (LTG) Pt will be able to return to pool swimming without left shoulder pain LTG Duration 05/01/24 strength Short Term Goal (STG) Pt will be indep w/HEP STG Duration Goal Met Halfway Goal (LTG) Pt will score at least 4+/5 on all LUE MMT and 3/5 EFT in order to show improved stabiltiy to allow her to do her work tasks. 04/01/24: Improving LTG Duration 05/01/24 ROM Short Term Goal (STG) Pt will improve flex and abd of L shoulder by at least 10 deg ea. STG Duration Goal Met Halfway Goal (LTG) Pt will have full L AROM of L shoulder w/o inc pain in order to allow greater ease w/ADLs 04/01: Mild limitations with left IR LTG Duration 05/01/24 Quick dash Impairment 54.4 Short Term Goal (STG) Pt will improve quick dash score to now greater than 34 to show improved functional ability w/L shoulder. STG Duration 04/15/24 Halfway Goal (LTG) Pt will improve quick dash score to now greater than 4 to show improved functional ability w/L shoulder. LTG Duration 05/01/24 Assessment Summary Assessment Pt continues to do well, ROM nearly WNL, left shoulder strength continues to improve. 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 Physical Therapy Plan Frequency and Duration Frequency of Treatment 2x/Week Plan of Care Start Date 04/01/24 Plan of Care End Date 05/01/24 Therapeutic Interventions Therapeutic Interventions Gait Training,Home Exercise Program,Joint Mobilizations, Manual Therapy,Neuromuscular Re-education,Orthotic/ Prosthetic Management,Patient/ Caregiver Education,Self-Care/ Home Management,Soft Tissue Mobilization,Taping, Therapeutic Activities, Therapeutic Exercises Modalities Cold Pack/Ice Massage,Electric Stimulation,Hot Packs, Infrared Therapy,Iontophoresis ,Traction- Mechanical, Ultrasound Other Therapeutic Interventions dexamethasone ionto Next Visit Focus/Plan Next Note Type Treatment Note Next Visit Plan review exercises and work on getting full IR
--- NOTE | 2024-04-25 12:07 | PT.OTN ---
Current Diagnoses Abnormal posture (04/25/24) Weakness (04/25/24) Superior glenoid labrum lesion of left shoulder, subsequent encounter (04/25/24) Strain of unspecified muscle, fascia and tendon at shoulder and upper arm level, left arm, initial encounter (04/25/24) Physical Therapy Treatment Note PT-OP-A Visit Information Start: 08/08/23 08:07 Freq: Status: Active Protocol: Document 04/25/24 11:30 [facility] (Rec: 04/25/24 12:07 [facility] [id number]) Out-Patient Physical Therapy Visit Information Visit Information Visit Type Discharge Summary Visit Start Time 11:30 Visit Stop Time 12:00 Visit Number 40 Number of INDUSTRIAL PAINTER Visits 0 PT-OP-B Current Condition Start: 08/08/23 08:07 Freq: Status: Active Protocol: Document 04/01/24 16:00 [facility] (Rec: 04/01/24 16:44 [facility] [id number]) Current Condition History of Current Condition History of Current Condition Pt fell carrying mail bins that broke her fall and felt a sharp pain at that time. It went away but now when she rolls certain ways, or reach w /her arm. She is seeing Dr. Larios. Per pt, w/MRI there is tendonitis, arthritis present and not recommending surgery. A few weeks ago, she reached to grab a cup that was falling and it was sharp pain. She feels like she is losing upper body strength and feels like she is losing ROM and strength B as she is avoiding motion. denies numbness or tingling. pain is sharp w/movement then has a lasting achiness. 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 Pain has not gotten better and in someways has gotten worse w/ the sharp pains. ADDENDUM 04/01/24: Pt returns to skilled therapy for continuation of treatment of shoulder injury following pt's change in medical status following her right DEIDRA. Pt reports that she feels her shoulder has largely healed, however is still mildly limited with internal rotation , and she has a mild pain with swimming motion, which makes her hesitate to return to the local pool for exercise. PT-OP-C Subjective Start: 08/08/23 08:07 Freq: Status: Active Protocol: Document 04/25/24 11:30 [facility] (Rec: 04/25/24 12:07 [facility] [id number]) OP-PT Subjective Patient Comments Patient Comments Pt admits she forgot to try to go swimming, but she's been doing her exercises. Does try to perform her stroke on land, and it feels pretty normal. PT-OP-F Manual Assessment Start: 08/08/23 08:07 Freq: Status: Active Protocol: Document 04/01/24 16:00 [facility] (Rec: 04/01/24 16:44 [facility] [id number]) Manual Assessments Soft Tissue Assessment Soft Tissue Mobility Assessment mild tenderness: L infraspinatus, supraspinatus PT-OP-J Posture/Palpation/Skin Start: 08/08/23 08:07 Freq: Status: Active Protocol: Document 08/15/23 14:31 [facility] (Rec: 08/15/23 15:19 [facility] [id number]) Posture Evaluation [facility] Postural Classification System [facility] Postural Classifications Posterior/Anterior Elbow Flexion Test 1 Comments Posture Comments L>R humerus ant in glenoid, ant tipped, abd, lat tipped L scap, inc kyphosis, mod fwd head PT-OP-K Range of Motion Start: 08/08/23 08:07 Freq: Status: Active Protocol: Document 04/01/24 16:00 [facility] (Rec: 04/01/24 16:44 [facility] [id number]) Shoulder Goniometric Range of Motion Shoulder Left Passive Testing Position Sitting Flexion 165 Abduction 180 External Rotation at 45 degrees 70 Abduction Right Active Flexion 165 Abduction 180 External Rotation at 0 degrees Abduction 70 Internal Rotation Behind Back (text) T6 Left Active Flexion 160 Abduction 180 External Rotation at 0 degrees Abduction 65 Internal Rotation Behind Back (text) T10 PT-OP-L Special Tests Start: 08/08/23 08:07 Freq: Status: Active Protocol: Document 08/15/23 14:31 [facility] (Rec: 08/15/23 15:19 [facility] [id number]) Special Tests Shoulder Special Tests crank Test Results pos biceps loads Test Results pos [place] Test Test Results pain but pain in speeds also Speed's Biceps Test Results pain but pain in obriens also Car Henrik Impingement Test Results neg Neer Impingement Test Results pos Empty Can Test Results neg PT-OP-M Strength Start: 08/08/23 08:07 Freq: Status: Active Protocol: Document 04/01/24 16:00 [facility] (Rec: 04/01/24 16:44 [facility] [id number]) Shoulder Strength Shoulder Manual Muscle Testing Right Flexion 5 Normal Extension 5 Normal Abduction (C5) 5 Normal External Rotation 5 Normal Internal Rotation 5 Normal Horizontal Abduction 5 Normal Horizontal Adduction 5 Normal Left Flexion 4+ Good+ Extension 5 Normal Abduction (C5) 4+ Good+ External Rotation 4+ Good+ Internal Rotation 5 Normal Horizontal Abduction 4+ Good+ Horizontal Adduction 5 Normal PT-OP-Q Treatments Start: 08/08/23 08:07 Freq: Status: Active Protocol: Document 04/25/24 11:30 [facility] (Rec: 04/25/24 12:07 [facility] [id number]) Gym Equipment Therapeutic Ball Perturbations Exercise Details Hold ball vs Perturbations Ball Size/Color Blue - 45 cm Body Position Hooklying Comments Hold arms in 90 deg flexion Therapeutic Exercises Supine Exercises serratus punch Supine Exercise Name Serratus Punch /c PVC Side bilateral Equipment Used 10# Reps/Minutes x20 flex Supine Exercise Name flex w/ PVC Side bilateral Resistance 10# Reps/Minutes x20 Sitting Exercises Overhead Press Sitting Exercise Name Overhead press /c PVC Side bilateral Resistance 10# ER/IR Sitting Exercise Name ER/IR /c arm at 90/90 Side left Resistance Blue 4.4# ball Other Exercises Resisted UE Amb Other Exercise Name Resisted UE side-stepping Resistance Green loop Body Blade Other Exercise Name Body Blade - Flexion, Abduction Side left Resistance Yellow PT-OP-R Modalities Start: 08/08/23 08:07 Freq: Status: Active Protocol: Document 11/22/23 09:04 [facility] (Rec: 11/22/23 09:51 [facility] [id number]) Hot Pack/Cold Pack Treatment Cold Pack Location L shoulder Patient Position Supine Patient Tolerance Good PT-OP-T Assessment and Plan Start: 08/08/23 08:07 Freq: Status: Active Protocol: Document 04/25/24 11:30 [facility] (Rec: 04/25/24 12:07 [facility] [id number]) Physical Therapy Assessment Impairments Impairments Activity Tolerance,Functional Activities,Functional Mobility ,Pain,ROM,Strength Goals activity Short Term Goal (STG) Pt will be able to dress w/o inc pain 09/16-pain about every other day -putting shirt/jacket on/ off STG Duration Goal Met Fpc Goal (LTG) Pt will be able to return to pool swimming without left shoulder pain LTG Duration 05/01/24 strength Short Term Goal (STG) Pt will be indep w/HEP STG Duration Goal Met Lead C Developer Goal (LTG) Pt will score at least 4+/5 on all LUE MMT and 3/5 EFT in order to show improved stabiltiy to allow her to do her work tasks. 04/01/24: Improving LTG Duration 05/01/24 ROM Short Term Goal (STG) Pt will improve flex and abd of L shoulder by at least 10 deg ea. STG Duration Goal Met Fpc Goal (LTG) Pt will have full L AROM of L shoulder w/o inc pain in order to allow greater ease w/ADLs 04/01: Mild limitations with left IR LTG Duration 05/01/24 Quick dash Impairment 54.4 Short Term Goal (STG) Pt will improve quick dash score to now greater than 34 to show improved functional ability w/L shoulder. STG Duration 04/15/24 Fpc Goal (LTG) Pt will improve quick dash score to now greater than 4 to show improved functional ability w/L shoulder. LTG Duration 05/01/24 Assessment Summary Assessment Pt feeling much better with her shoulder, feels like she can return to her prior activity level, looking forward to getting back to swimming. Pt agreeable to discharge at this time. Will continue with therapy for her hip. Physical Therapy Plan Frequency and Duration Frequency of Treatment 2x/Week Plan of Care Start Date 04/01/24 Plan of Care End Date 05/01/24 Therapeutic Interventions Therapeutic Interventions Gait Training,Home Exercise Program,Joint Mobilizations, Manual Therapy,Neuromuscular Re-education,Orthotic/ Prosthetic Management,Patient/ Caregiver Education,Self-Care/ Home Management,Soft Tissue Mobilization,Taping, Therapeutic Activities, Therapeutic Exercises Modalities Cold Pack/Ice Massage,Electric Stimulation,Hot Packs, Infrared Therapy,Iontophoresis ,Traction- Mechanical, Ultrasound Other Therapeutic Interventions dexamethasone ionto Next Visit Focus/Plan Next Note Type Treatment Note Next Visit Plan review exercises and work on getting full IR
== END 2024-05-07 15:07 | disposition home or self-care (01) ==
LOC: PHYS 11:30
PROVIDERS: Family Provider Family Medicine; PCP Family Medicine; Referring Provider Preventive Medicine Public Health & General Preventive Medicine; Visit Provider Preventive Medicine Public Health & General Preventive Medicine
DX: S46.912A Strain of unspecified muscle, fascia and tendon at shoulder and upper arm level, left arm, initial encounter (principal); S43.432D Superior glenoid labrum lesion of left shoulder, subsequent encounter; R53.1 Weakness; R29.3 Abnormal posture
CPT/HCPCS: 97110; 97140; 97162; 97164; 97535

== ENCOUNTER → 2024-04-25 | Outpatient (CLI) | payer OTHER, SELFPAY | PROVIDERS: Family Provider Family Medicine; PCP Family Medicine; Referring Provider Internal Medicine; Visit Provider Internal Medicine | DX: Z23 Encounter for immunization (principal) | CPT/HCPCS: 90471; 90656 ==

== ENCOUNTER 2024-05-30 06:54 | Emergency (ER) | payer OTHER, SELFPAY ==
[2024-05-30] VITALS (12 sets, daily range): BP systolic 90–121; BP diastolic 49–69; PULSE 53–80; RESP 16; TEMP 36.6; O2SAT 93–97; BMI 28.3
--- NOTE | 2024-05-30 07:32 | DI.CT.S_ITS ---
PROCEDURE: CT HIP RIGHT WITH CON INDICATIONS: hip pain TECHNIQUE: Noncontrast 3 mm axial sections acquired through the bony pelvis. Additional 3 mm axial sections acquired through the symptomatic hip joint, with coronal and sagittal reformats. COMPARISON: None. FINDINGS: Image quality: Excellent. Bones: No visualized fracture or dislocation. Right hip arthroplasty is present. Hardware is intact. As noted on CT abdomen pelvis, there is a thin lucency along the anterior aspect of the distal prosthesis seen on series 6, image 89. Soft tissues: No areas of abnormal enhancement, fluid collection or inflammatory change. Visualized portions of the lower pelvis are unremarkable. IMPRESSION: Right hip arthroplasty with questionable small area of loosening. Otherwise unremarkable. If concern persists, ligamentous injury cannot be excluded and potentially MRI may be obtained as indicated. Dictated by: Genoveva Main M.D. on 05/30/2024 at 8:58 Approved by: Genoveva Main M.D. on 05/30/2024 at 9:00
--- NOTE | 2024-05-30 07:32 | DI.CT.S_ITS ---
PROCEDURE: CT ABDOMEN PELVIS W CON INDICATIONS: RLQ, low back, hip, psoas pain TECHNIQUE: After the administration of intravenous contrast, axial sections acquired from the lung bases to the pubic symphysis. Coronal and sagittal reformats were performed. For radiation dose reduction, the following was used: automated exposure control, adjustment of mA and/or kV according to patient size. COMPARISON: [facility], CT, CT HIP RIGHT WITH CON, 05/30/2024, 8:01. FINDINGS: Image quality: Portions of the lower pelvis are suboptimally evaluated secondary to metallic streak artifact from hip arthroplasty. Lower Chest: No significant findings. ABDOMEN: Liver: No solid mass. Liver is enlarged measuring 19.5 cm with steatosis. Gallbladder: No radiopaque gallstones or wall thickening. Biliary ducts: No biliary dilation. Pancreas: No ductal dilation. Spleen: Size is within normal limits. Adrenal Glands: No adrenal nodules. Kidneys and Ureters: No hydronephrosis. No solid mass. No complex renal cystic lesion which requires follow up. Stomach and Bowel: Normal colonic caliber, without significant wall thickening. Hiatal hernia. Significant thickening of the distal pylorus. Appendix is normal. Peritoneum: No abnormal intraperitoneal fluid. No free air. Ventral Wall: No significant ventral hernia. Abdominal Nodes: No retroperitoneal or mesenteric adenopathy by size criteria. Vessels: Aorta and inferior vena cava are normal in size. PELVIS: Pelvic Organs: Unremarkable. Bladder: No bladder wall thickening, accounting for underdistention. Pelvic Nodes: No enlarged lymph nodes. Miscellaneous: No inguinal hernias are seen. Bones: No aggressive osseous abnormality. Right hip arthroplasty. Hardware appears intact without evidence of hardware fracture. There is a small questionable area of lucency along the anterior aspect of the right hip arthroplasty distally series 2, image 164. IMPRESSION: Right hip arthroplasty with questionable lucency along the anterior aspect distally which could represent loosening. Appendix is normal. No renal stone. Right hip and psoas musculature appear within normal limits. Dictated by: Genoveva Main M.D. on 05/30/2024 at 8:47 Approved by: Genoveva Main M.D. on 05/30/2024 at 8:58
[2024-05-30] MEDS: dexAMETHasone 4 MG TABLET 12 MG PO (07:52)
[2024-05-30 07:54] LABS: Add Manual Diff / Slide Review NO; Basophils Absolute Auto 0 /uL (0-100); Basophils Percent Auto 0.3 % (0-2); Eosinophils Absolute Auto 200 /uL (0-450); Eosinophils Percent Auto 5.4 % (2-4); Hemoglobin 12.3 g/dL (12.0-16.0); Lymphocytes Absolute Auto 1000 /uL (1100-4500); Lymphocytes Percent Auto 22.8 % (25-40); Mean Corpuscular HGB Conc 33.2 % (30-36); Mean Corpuscular Volume 93.2 fL (80-100); Monocytes Absolute Auto 400 /uL (0-900); Monocytes Percent Auto 8.9 % (3-14); Neutrophils Absolute Auto 2700 /uL (1500-7000); Neutrophils Percent Auto 62.6 % (50-75); Platelet Count 335 X10^3/uL (150-400); Red Blood Cell Count 3.97 X10^6/uL (4.0-5.2); Red Cell Distribution Width 13.9 % (11.6-14.8); White Blood Cell Count 4.3 X10^3/uL (4.5-11.0)
--- NOTE | 2024-05-30 07:59 | ED.EXTPRO ---
HPI - Extremity Problem General Chief complaint: Extremity Problem,Nontraumatic Stated complaint: rt side hip pain Time Seen by Provider: 05/30/24 07:01 Source: patient Mode of arrival: Ambulatory History of Present Illness HPI Narrative: Presents complaining of progressive right hip pain. In December of this year she had a hip replacement and recovery has been challenging. She currently is taking daily meloxicam to help with the pain. She has been seen by Physical therapy and is making minimal progress. She has been re-evaluated by her orthopedic surgeon who feels she has a so as tendinitis. She has been referred for steroid injection but 1st available appointment is in August. In the meantime she finds that lifting her leg external rotation and sleeping positions particularly on her side even with pillows for positioning between the knees makes things worse. She is having increasing difficulty walking. 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 She does recognize that getting in and out of cars all day may be exacerbating the problem and is very careful to make sure that she rotates her entire lower body as a single unit rather than her legs to get in and out of the car. She has not complaining of specific back pain. She notices patch of paresthesia on the lateral aspect of her anterior thigh post surgery that has not particularly changed. She is noticing that the leg is not necessarily becoming more weak but she is not able to make any progress in improving strength while working with her physical therapist. Related Data Home Medications Medication Instructions Recorded Confirmed CA PANTOTHENATE/FOLIC ACID/VIT 1 tab PO QDAY ##0 12/24/12 05/06/24 (MULTIVITAMIN) Fish Oil 1,000 mg PO QDAY ##0 12/24/12 05/06/24 meloxicam 15 mg tablet 15 mg PO DAILY 11/08/23 05/06/24 Previous Rx's Medication Instructions Recorded omeprazole 20 mg capsule,delayed 20 mg PO DAILY PRN reflux #30 caps 07/21/22 release ibuprofen 800 mg tablet 800 mg PO TID PRN pain #60 tabs 08/01/23 fluoxetine 10 mg capsule 10 mg PO DAILY #90 caps 04/03/24 dexamethasone 4 mg tablet 10 mg (2.5 x 4 mg) PO DAILY #5 tabs 05/30/24 Allergies Allergy/AdvReac Type Severity Reaction Status Date / Time sertraline AdvReac Mild DIARRHEA Verified 05/06/24 15:38 Review of Systems Review of Systems Narrative: Pertinent positive and negative findings as per HPI Patient History Medical History (Updated 05/30/24 @ 10:31 by Nellie Banks MD) COVID-19 virus infection Achilles tendinitis, right leg Restless leg Surgical History (Updated 05/30/24 @ 08:03 by Nellie Banks MD) Hip joint replacement status Family History Child Age: 37 Bipolar 1 disorder Child Age: 29 Eczema Hx of seasonal allergies Mother Age: 83 High cholesterol Hiatal hernia Malignant neoplasm of female breast, unspecified laterality, unspecified site of breast Sister Age: 56 Seizures Social History marital status: Smoking Status: Never smoker alcohol intake: never substance use type: does not use Smoking Status: Never smoker alcohol intake frequency: other Substance Use Type: does not use Exam Initial Vital Signs Initial Vital Signs: Vital Signs Pulse Rate 67 05/30/24 06:59 Blood Pressure 121/69 05/30/24 06:59 Pulse Oximetry 97 05/30/24 06:59 General: Healthy appearing, in no acute distress. Able to give a complete and coherent history. Well-nourished well-developed HEENT: Moist mucous membranes, normal sclera with reactive pupils, Respiratory: Lungs are clear to auscultation, no wheezing no rales no rhonchi. Full and symmetrical air movement Cardiac: Regular rate and rhythm no murmurs no bruits Abdomen: Soft, nontender, good bowel tones, no tenderness with deep palpation to try to press on the psoas muscle, no flank pain. No tenderness or muscle spasm along the lower lumbar spine Neurologic: Grossly neurologically intact with no obvious asymmetries or abnormalities, superficial patch of paresthesia on the right thigh postop. Extremities: No trauma, tenderness with external rotation seems to be deeper within the pelvis rather than the joint itself. Psych: Cooperative, appropriate insight and affect Course Orders Ordered: ED Orders 05/30/24 07:32 CT abdomen pelvis w con Stat Ct Hip right with con Stat 05/30/24 07:45 CRP [C-Reactive Protein Quant] Stat Complete Blood Count AUTO DIFF Stat Comprehensive Metabolic Panel Stat Erythrocyte Sedimentation Rate Stat Discontinued Medications Dexamethasone (Dexamethasone 4 Mg Tablet) 12 mg 0.15 mg/kg (12 mg) PO NOW ONE Stop: 05/30/24 07:46 Last Admin: 05/30/24 07:52 Dose: 12 mg Documented By: CTS Vital Signs Vital signs: Vital Signs - 8 hr 05/30/24 06:59 05/30/24 06:59 05/30/24 07:00 Temperature Pulse Rate 67 60 Pulse Rate [Right Dorsalis Pedis] Respiratory Rate Blood Pressure 121/69 Pulse Oximetry 97 97 Oxygen Delivery Method 05/30/24 07:02 05/30/24 07:08 05/30/24 07:30 Temperature 98 F Pulse Rate 80 56 L Pulse Rate [Right Dorsalis Pedis] 80 Respiratory Rate 16 Blood Pressure 121/69 Pulse Oximetry 96 94 Oxygen Delivery Method Room Air 05/30/24 08:02 05/30/24 08:03 05/30/24 08:03 Temperature Pulse Rate 62 62 Pulse Rate [Right Dorsalis Pedis] Respiratory Rate Blood Pressure 97/49 L Pulse Oximetry 97 94 Oxygen Delivery Method 05/30/24 08:06 05/30/24 08:08 05/30/24 08:08 Temperature Pulse Rate 53 L 54 L Pulse Rate [Right Dorsalis Pedis] Respiratory Rate Blood Pressure 90/52 L Pulse Oximetry 93 94 Oxygen Delivery Method 05/30/24 08:30 05/30/24 08:31 05/30/24 08:31 Temperature Pulse Rate 60 55 L Pulse Rate [Right Dorsalis Pedis] Respiratory Rate Blood Pressure 111/53 L Pulse Oximetry 97 97 Oxygen Delivery Method Room Air MDM - Extremity (Nontraumatic) Lab Data 05/30/24 07:45 05/30/24 07:45 Labs: Lab Results 05/30/24 Range/Units 07:45 WBC 4.3 L (4.5-11.0) X10^3/uL RBC 3.97 L (4.0-5.2) X10^6/uL Hgb 12.3 (12.0-16.0) g/dL Hct 37.0 (36-46) % MCV 93.2 (80-100) fL MCH 31.0 (26-34) PG MCHC 33.2 (30-36) % RDW 13.9 (11.6-14.8) % Plt Count 335 (150-400) X10^3/uL Neut % (Auto) 62.6 (50-75) % Lymph % (Auto) 22.8 L (25-40) % Emery % (Auto) 8.9 (3-14) % Eos % (Auto) 5.4 H (2-4) % Baso % (Auto) 0.3 (0-2) % Neut # (Auto) 2700 (1263-1117) /uL Lymph # (Auto) 1000 L (7188-5774) /uL Emery # (Auto) 400 (0-900) /uL Eos # (Auto) 200 (0-450) /uL Baso # (Auto) 0 (0-100) /uL ESR 12 (0-20) MM/HR Sodium 139 (137-145) mmol/L Potassium 4.3 (3.4-5.1) mmol/L Chloride 108 H (98-107) mmol/L Carbon Dioxide 25 (22-32) mmol/L BUN 16 (7-17) mg/dL Creatinine 0.76 (0.52-1.04) mg/dL Estimated GFR > 60 (>60) mL/min BUN/Creatinine Ratio 21.1 (6-22) Glucose 99 (80-110) mg/dL Calcium 9.0 (8.4-10.2) mg/dL Total Bilirubin 0.4 (0.2-1.3) mg/dL AST 23 (14-36) IU/L ALT 19 (<35) IU/L Alkaline Phosphatase 62 (38-126) U/L C-Reactive Protein < 0.5 (<1.0) mg/dL Total Protein 6.7 (6.3-8.2) g/dL Albumin 4.1 (3.5-5.0) g/dL Globulin 2.6 (1.7-4.1) g/dL Albumin/Globulin Ratio 1.6 (1.0-2.8) Imaging Data CT scan - abdomen/pelvis: Radiologist's Impression: PROCEDURE: CT ABDOMEN PELVIS W CON INDICATIONS: RLQ, low back, hip, psoas pain TECHNIQUE: After the administration of intravenous contrast, axial sections acquired from the lung bases to the pubic symphysis. Coronal and sagittal reformats were performed. For radiation dose reduction, the following was used: automated exposure control, adjustment of mA and/or kV according to patient size. COMPARISON: [facility], CT, CT HIP RIGHT WITH CON, 05/30/2024, 8:01. FINDINGS: Image quality: Portions of the lower pelvis are suboptimally evaluated secondary to metallic streak artifact from hip arthroplasty. Lower Chest: No significant findings. ABDOMEN: Liver: No solid mass. Liver is enlarged measuring 19.5 cm with steatosis. Gallbladder: No radiopaque gallstones or wall thickening. Biliary ducts: No biliary dilation. Pancreas: No ductal dilation. Spleen: Size is within normal limits. Adrenal Glands: No adrenal nodules. Kidneys and Ureters: No hydronephrosis. No solid mass. No complex renal cystic lesion which requires follow up. Stomach and Bowel: Normal colonic caliber, without significant wall thickening. Hiatal hernia. Significant thickening of the distal pylorus. Appendix is normal. Peritoneum: No abnormal intraperitoneal fluid. No free air. Ventral Wall: No significant ventral hernia. Abdominal Nodes: No retroperitoneal or mesenteric adenopathy by size criteria. Vessels: Aorta and inferior vena cava are normal in size. PELVIS: Pelvic Organs: Unremarkable. Bladder: No bladder wall thickening, accounting for underdistention. Pelvic Nodes: No enlarged lymph nodes. Miscellaneous: No inguinal hernias are seen. Bones: No aggressive osseous abnormality. Right hip arthroplasty. Hardware appears intact without evidence of hardware fracture. There is a small questionable area of lucency along the anterior aspect of the right hip arthroplasty distally series 2, image 164. IMPRESSION: Right hip arthroplasty with questionable lucency along the anterior aspect distally which could represent loosening. Appendix is normal. No renal stone. Right hip and psoas musculature appear within normal limits. Dictated by: Genoveva Main M.D. on 05/30/2024 at 8:47 CT hip: Radiologist's Impression: PROCEDURE: CT HIP RIGHT WITH CON INDICATIONS: hip pain TECHNIQUE: Noncontrast 3 mm axial sections acquired through the bony pelvis. Additional 3 mm axial sections acquired through the symptomatic hip joint, with coronal and sagittal reformats. COMPARISON: None. FINDINGS: Image quality: Excellent. Bones: No visualized fracture or dislocation. Right hip arthroplasty is present. Hardware is intact. As noted on CT abdomen pelvis, there is a thin lucency along the anterior aspect of the distal prosthesis seen on series 6, image 89. Soft tissues: No areas of abnormal enhancement, fluid collection or inflammatory change. Visualized portions of the lower pelvis are unremarkable. IMPRESSION: Right hip arthroplasty with questionable small area of loosening. Otherwise unremarkable. If concern persists, ligamentous injury cannot be excluded and potentially MRI may be obtained as indicated. Dictated by: Genoveva Main M.D. on 05/30/2024 at 8:58 MDM Narrative Medical decision making narrative: CC: Increasing right hip pain and weakness Complicating co-morbidities: Hip was replaced in December of 2023 Data collected from: patient Differential considered: Continued postop pain, tendinitis, so as problem, radicular back pain, doubt bursitis, possible pelvic or intra-abdominal/retroperitoneal medical abnormality that is exacerbating her pain and limiting her postop recovery. She does not have exquisite joint tenderness with range of motion and I do not suspect hip joint septic arthritis Exam documented above, pertinent findings include: Patient is fatigued overall quite frustrated, obviously hurting. Tenderness deep into the right lower quadrant without rebound or guarding. No skin changes, she is neurovascularly intact distally Lab Test results independently reviewed as above. Pertinent findings: CBC is reassuring Chemistries show no significant abnormalities CRP is not elevated Sed rate is 12, not elevated Imaging studies independently reviewed: CT scan of the pelvis and hip do not show acute obvious abnormalities. There is a suggestion of a thin lucency along the anterior aspect of the distal prosthesis with questionable small area of loosening. Treatments: Oral dexamethasone Discussion:She has been doing everything appropriate to rehab her hip and symptoms are progressing. At this point will expand her workup to include more medical issues to see if there was an alternate explanation. Findings concerns and recommendations were reviewed with the patient. We will see if a total of 3 days of dexamethasone influences her pain in any way. At this point there was no evidence of occult fractures, other right lower quadrant abdominal or pelvic pathologies that might be causing her pain. She understands and she will be discharged home Discharge Plan Departure Patient Disposition: Home Clinical Impression: Acute pain of right hip Instructions: DI for Hip Pain Activity Restrictions/Additional Instructions: Thank you for coming into I am sorry that you are continuing to have somewhat suffering with the pain related to right hip. The imaging studies that we did today do not show any concerning findings. The hip replacement parts themselves seem to be settling nicely. There was no obvious areas of infection, abscess collection no other findings in the right lower part of your abdomen to suggest alternate reason for pain. I have given you a dose of dexamethasone which is a steroid in the emergency department I am going to give you a prescription for 2 further days. This helps inflammation which is typically the underlying reason for pain. You tend to start noticing the most effect on day 3 and then for a week after you stop the medication Do continue with your other medications as prescribed as well as your anticipated plan for steroid injection. If you find that you are getting worse or develop any new symptoms, please feel free to return to the emergency department for further evaluation. Prescriptions: New dexamethasone 4 mg tablet 10 mg PO DAILY Qty: 5 0RF No Action omeprazole 20 mg capsule,delayed release(DR/EC) 20 mg PO DAILY PRN (Reason: reflux) Qty: 30 3RF Rx Instructions: Take one capsule once daily while on Ibuprofen then take as needed for reflux Fish Oil 1,000 mg PO QDAY Qty: 0 CA PANTOTHENATE/FOLIC ACID/VIT (MULTIVITAMIN) 1 tab PO QDAY Qty: 0 ibuprofen 800 mg tablet 800 mg PO TID PRN (Reason: pain) Qty: 60 1RF meloxicam 15 mg tablet 15 mg PO DAILY fluoxetine 10 mg capsule 10 mg PO DAILY Qty: 90 1RF Referrals: Keny Ibarra MD [Primary Care Provider] - Stand Alone Forms: Patient Portal/API/Survey
[2024-05-30 08:05] LABS: Alanine Aminotransferase 19 IU/L (<35); Albumin 4.1 g/dL (3.5-5.0); Albumin Globulin Ratio 1.6 (1.0-2.8); Alkaline Phosphatase 62 U/L (38-126); Aspartate Aminotransferase 23 IU/L (14-36); BUN Creatinine Ratio 21.1 (6-22); Bilirubin Total 0.4 mg/dL (0.2-1.3); Blood Urea Nitrogen 16 mg/dL (7-17); Carbon Dioxide 25 mmol/L (22-32); Chloride 108 mmol/L (98-107); Estimated Glomerular Filt Rate > 60 mL/min (>60); Globulin 2.6 g/dL (1.7-4.1); Glucose 99 mg/dL (80-110); HEMOLYSIS < 15 (0-50); Potassium 4.3 mmol/L (3.4-5.1); Sodium 139 mmol/L (137-145); Total Protein 6.7 g/dL (6.3-8.2)
[2024-05-30 08:09] LABS: C-Reactive Protein Quant < 0.5 mg/dL (<1.0)
[2024-05-30 09:00] LABS: Erythrocyte Sedimentation Rate 12 MM/HR (0-20)
== END 2024-05-30 10:37 | disposition home or self-care (01) ==
PROVIDERS: Emergency Provider Emergency Medicine; Family Provider Family Medicine; PCP Family Medicine
DX: M25.551 Pain in right hip (principal); M54.50 Low back pain, unspecified; Z96.641 Presence of right artificial hip joint
CPT/HCPCS: 36415; 73701; 74177; 80053; 85025; 85651; 86140; 99284

== ENCOUNTER 2024-06-11 09:00 | Outpatient (RCR) | payer OTHER, SELFPAY ==
--- NOTE | 2024-02-11 17:55 | PT.OPPOC ---
Physical, Occupational & Speech Therapy At [facility] Current Diagnoses Unilateral primary osteoarthritis, right hip (02/11/24) Pain in right hip (02/11/24) Encounter for other preprocedural examination (02/11/24) Visit Care Team Role Provider Type Keny Ibarra MD Family Provider Physician Primary Care Provider Specialty: Family Practice Address: [address] [place] [address], [address], [place], [address] Email: [email or web address] Allred DO Attending Provider Non-Staff Referring Provider Specialty: Orthopedics Address: [address] [facility], [place], [address] Email: Plan Of Care PT-OP-B Current Condition Start: 02/05/24 16:37 Freq: Status: Active Protocol: Document 02/11/24 12:30 [facility] (Rec: 02/11/24 15:17 [facility] [id number]) Current Condition History of Current Condition Onset Date December 25 2023 Current Complaints R ant DEIDRA History of Current Condition Pt reports pain and numbness in R thigh since R DEIDRA. Doctor said at about 6 weeks, the numbness starts to heal slowly . Other than that, hip seems ok. She walked up to the football field and sat on it and walked back home and the next day got really nauseas and went to ER and had COVID. Pt reports she is cleared to turn leg to side. Knee was painful prior to sx and after surgery, it has been better and is worried about pushing range to avoid hurting knee. Can't clip toe nails. Pt reports she is cleared to move anyway now. Xrays looked good . chronic hx of B hip pain and R knee pain w/recent R sided pain worsening. OVerall feels like it is healing well. Spent 1 night in hospital. She was given gabapentin but it made her sleepy and it didn't help w/pain. pt reports she recently (about last week) gave up cane/walker. She still sits on a chair in tub. having an easier time getting socks on but does still struggle. Has noticed L achilles limitingher when attempting to go for short walks liek a few blocks. Pt feels weak Treatment Goals Patient/Caregiver Goals be able to move leg to get toenails trimmed/get socks on easier, be able to go for long walks (flat [place] 4miles); improve RLE flexibility (like cross leg) PT-OP-T Assessment and Plan Start: 02/05/24 16:37 Freq: Status: Active Protocol: Document 02/11/24 12:30 [facility] (Rec: 02/11/24 15:17 [facility] [id number]) Physical Therapy Assessment Rehab Potential Rehabilitation Potential Good Evaluation Complexity Number of Personal Factors/Comorbidities 3 or More Number of Body Systems Impaired 4 or More Clinical Presentation at Evaluation Evolving Impairments Impairments Activity Tolerance,Balance, Functional Activities, Functional Mobility,Gait,Pain, Posture,ROM,Soft Tissue Mobility,Strength,Transfers Goals activity Short Term Goal (STG) Pt will be able to return to walks of at least .5 mile w/o inc pain w/o AD. STG Duration 03/23 Reject Opener And Filler Goal (LTG) Pt will be able to return to walks of at least 2 mile w/o inc pain w/o AD. LTG Duration 04/21 mobility Custodial Goal (LTG) Pt will be able to cut toe nails, cross legs, put on socks w/o feeling of loss of mobility LTG Duration 04/21 strength Short Term Goal (STG) Pt will be indep w/HEP STG Duration 03/18 Custodial Goal (LTG) Pt will score at least 4+/5 on all LE MMT to show improved strength and stability to allow doing typical daily activities and return to work w/o limitation LTG Duration 04/21 LEFS Impairment 26 Short Term Goal (STG) Pt will score at least 45 on LEFS to show improved functional ability. STG Duration 03/18 Reject Opener And Filler Goal (LTG) Pt will score at least 58 on LEFS to show improved functional ability. LTG Duration 04/21 Assessment Summary Assessment Pt presents 7 weeks s/p R ant DEIDRA with overall good healing except numbness/pain to R thigh that has persisted since about 1 week after surgery. She is slowly returning to activities, but is limited in ability to walk longer distances, do full activities at home, and has overall dec strength and ROM of RLE along w/dec balance. She would benefit from skilled PT to improve balance, gait, ROM and strength in order to return to improved functional ability . Physical Therapy Plan Frequency and Duration Frequency of Treatment 1-2x/wk Duration of treatment (weeks) 10 Plan of Care Start Date 02/11/24 Plan of Care End Date 04/21/24 Therapeutic Interventions Therapeutic Interventions Balance Training,Gait Training ,Home Exercise Program,Joint Mobilizations,Manual Therapy, Neuromuscular Re-education, Orthotic/Prosthetic Management ,Patient/Caregiver Education, Self-Care/Home Management,Soft Tissue Mobilization,Taping, Therapeutic Activities, Therapeutic Exercises Modalities Cold Pack/Ice Massage,Electric Stimulation,Hot Packs Next Visit Focus/Plan Next Note Type Treatment Note Next Visit Plan review HEP; start gentle hip stretches; manual to hip, scar and thigh mm to improve mobility; shuttle balance Plan of Care Dates Plan of Care Start Date 02/11/24 Plan of Care End Date 04/21/24 Electronically Signed by: Radha Nj, PT 02/12/24 1100 If you are in agreement with this Plan of Care, please return a signed and dated copy. I have reviewed this Plan of Care and certify that the skilled therapy services above are required to meet the patient?s needs. Physician Signature Date Printed Name and Credentials Clinical Instructor Signature Printed Name and Credentials
--- NOTE | 2024-02-11 17:59 | PT.OIE ---
Current Diagnoses Unilateral primary osteoarthritis, right hip (02/11/24) Pain in right hip (02/11/24) Encounter for other preprocedural examination (02/11/24) Past Medical History (Last Reviewed 02/05/24 @ 12:37 by Catherine Valente DO) Achilles tendinitis, right leg Restless leg Visit Care Team Role Provider Type Keny Ibarra MD Family Provider Physician Primary Care Provider Specialty: Family Practice Address: [address] [place] [address], [address], [place], [address] Email: [email or web address] Gray Allred DO Attending Provider Non-Staff Referring Provider Specialty: Orthopedics Address: [address] [place] [address], [place], [address] Email: Physical Therapy Initial Evaluation PT-OP-A Visit Information Start: 02/05/24 16:37 Freq: Status: Active Protocol: Document 02/11/24 12:30 [facility] (Rec: 02/11/24 15:17 [facility] [id number]) Out-Patient Physical Therapy Visit Information Visit Information Visit Type Initial Evaluation Visit Start Time 14:32 Visit Stop Time 15:15 Visit Number 1 Number of SPECIAL NEEDS BABYSITTER Visits 0 PT-OP-B Current Condition Start: 02/05/24 16:37 Freq: Status: Active Protocol: Document 02/11/24 12:30 [facility] (Rec: 02/11/24 15:17 [facility] [id number]) Current Condition History of Current Condition Onset Date December 25 2023 Current Complaints R ant DEIDRA History of Current Condition Pt reports pain and numbness in R thigh since R DEIDRA. Doctor said at about 6 weeks, the numbness starts to heal slowly . Other than that, hip seems ok. She walked up to the football field and sat on it and walked back home and the next day got really nauseas and went to ER and had COVID. Pt reports she is cleared to turn leg to side. Knee was painful prior to sx and after surgery, it has been better and is worried about pushing range to avoid hurting knee. Can't clip toe nails. Pt reports she is cleared to move anyway now. Xrays looked good . chronic hx of B hip pain and R knee pain w/recent R sided pain worsening. OVerall feels like it is healing well. Spent 1 night in hospital. She was given gabapentin but it made her sleepy and it didn't help w/pain. pt reports she recently (about last week) gave up cane/walker. She still sits on a chair in tub. having an easier time getting socks on but does still struggle. Has noticed L achilles limitingher when attempting to go for short walks liek a few blocks. Pt feels weak Treatment Goals Patient/Caregiver Goals be able to move leg to get toenails trimmed/get socks on easier, be able to go for long walks (flat jo ann [place]pson 4miles); improve RLE flexibility (like cross leg) PT-OP-C Subjective Start: 02/05/24 16:37 Freq: Status: Active Protocol: Document 02/11/24 12:30 [facility] (Rec: 02/11/24 15:17 [facility] [id number]) Patient Questionnaires Lower Extremity Functional Scale LEFS Score 26 OP-PT Pain Assessment Location hip Pain Location Details R ant lat thigh Description Burning Description- Other numb Frequency Constant Other Pain Aggravating Factors touch PT-OP-D Balance Start: 02/05/24 16:37 Freq: Status: Active Protocol: Document 02/11/24 12:30 [facility] (Rec[facility] 02/11/24 15[facility]17 [id number] Balance Tests Single Limb Standing Single Limb- Right 1 sec Single Limb- Left 4 sec PT-OP-G Mobility & Gait Start: 02/05/24 16:37 Freq: Status: Active Protocol: Document 02/11/24 12:30 [facility] (Rec: 02/11/24 15:17 [facility] [id number]) OP Gait Assessment Comments Gait Comments stiff amb, no push off or ext B hips, WBOS, lat leaning PT-OP-K Range of Motion Start: 02/05/24 16:37 Freq: Status: Active Protocol: Document 02/11/24 12:30 [facility] (Rec: 02/11/24 15:17 [facility] [id number]) Hip Goniometric Range of Motion Hip Right Active Flexion w/Knee Flexed 80 Straight Leg Raise 49 Abduction 16 Internal Rotation 24 External Rotation 5 Comments tightness of R scar Left Active Flexion w/Knee Flexed 101 Straight Leg Raise 50 Abduction 18 Internal Rotation 17 External Rotation 8 PT-OP-M Strength Start: 02/05/24 16:37 Freq: Status: Active Protocol: Document 02/11/24 12:30 [facility] (Rec: 02/11/24 15:17 [facility] [id number]) Hip Strength Hip Manual Muscle Testing Right Flexion (L2) 3+ Fair+ Abduction 3 Fair External Rotation 4- Good- Internal Rotation 3+ Fair+ Left Flexion (L2) 4- Good- Abduction 3+ Fair+ External Rotation 3 Fair Internal Rotation 4 Good Knee Strength Knee Manual Muscle Testing Right Flexion (S2) 3+ Fair+ Extension (L3) 3+ Fair+ Left Flexion (S2) 4- Good- Extension (L3) 4 Good Ankle/Foot Strength Ankle and Foot Manual Muscle Testing Right Dorsiflexion (L4) 5 Normal Plantarflexion (S1) 4+ Good+ Left Dorsiflexion (L4) 5 Normal Plantarflexion (S1) 5 Normal Comments PF tested seated PT-OP-Q Treatments Start: 02/05/24 16:37 Freq: Status: Active Protocol: Document 02/11/24 12:30 [facility] (Rec: 02/11/24 15:17 [facility] [id number]) Therapeutic Exercises Sitting Exercises march Side bilateral Equipment Used L1 Reps/Minutes 15 stretch Sitting Exercise Name HS Side bilateral Reps/Minutes 60 sec Standing Exercises sit to stand Side bilateral Reps/Minutes 12 Comments no hands hip abd Side bilateral Equipment Used L1 at ankles Reps/Minutes 15 PT-OP-T Assessment and Plan Start: 02/05/24 16:37 Freq: Status: Active Protocol: Document 02/11/24 12:30 [facility] (Rec: 02/11/24 15:17 [facility] [id number]) Physical Therapy Assessment Rehab Potential Rehabilitation Potential Good Evaluation Complexity Number of Personal Factors/Comorbidities 3 or More Number of Body Systems Impaired 4 or More Clinical Presentation at Evaluation Evolving Impairments Impairments Activity Tolerance,Balance, Functional Activities, Functional Mobility,Gait,Pain, Posture,ROM,Soft Tissue Mobility,Strength,Transfers Goals activity Short Term Goal (STG) Pt will be able to return to walks of at least .5 mile w/o inc pain w/o AD. STG Duration 03/23 Machine Gunner Goal (LTG) Pt will be able to return to walks of at least 2 mile w/o inc pain w/o AD. LTG Duration 04/21 mobility Mcc Goal (LTG) Pt will be able to cut toe nails, cross legs, put on socks w/o feeling of loss of mobility LTG Duration 04/21 strength Short Term Goal (STG) Pt will be indep w/HEP STG Duration 03/18 Mcc Goal (LTG) Pt will score at least 4+/5 on all LE MMT to show improved strength and stability to allow doing typical daily activities and return to work w/o limitation LTG Duration 04/21 LEFS Impairment 26 Short Term Goal (STG) Pt will score at least 45 on LEFS to show improved functional ability. STG Duration 03/18 Machine Gunner Goal (LTG) Pt will score at least 58 on LEFS to show improved functional ability. LTG Duration 04/21 Assessment Summary Assessment Pt presents 7 weeks s/p R ant DEIDRA with overall good healing except numbness/pain to R thigh that has persisted since about 1 week after surgery. She is slowly returning to activities, but is limited in ability to walk longer distances, do full activities at home, and has overall dec strength and ROM of RLE along w/dec balance. She would benefit from skilled PT to improve balance, gait, ROM and strength in order to return to improved functional ability . Physical Therapy Plan Frequency and Duration Frequency of Treatment 1-2x/wk Duration of treatment (weeks) 10 Plan of Care Start Date 02/11/24 Plan of Care End Date 04/21/24 Therapeutic Interventions Therapeutic Interventions Balance Training,Gait Training ,Home Exercise Program,Joint Mobilizations,Manual Therapy, Neuromuscular Re-education, Orthotic/Prosthetic Management ,Patient/Caregiver Education, Self-Care/Home Management,Soft Tissue Mobilization,Taping, Therapeutic Activities, Therapeutic Exercises Modalities Cold Pack/Ice Massage,Electric Stimulation,Hot Packs Next Visit Focus/Plan Next Note Type Treatment Note Next Visit Plan review HEP; start gentle hip stretches; manual to hip, scar and thigh mm to improve mobility; shuttle balance
--- NOTE | 2024-02-14 15:20 | PT.OTN ---
Current Diagnoses Unilateral primary osteoarthritis, right hip (02/14/24) Pain in right hip (02/14/24) Encounter for other preprocedural examination (02/14/24) Physical Therapy Treatment Note PT-OP-A Visit Information Start: 02/05/24 16:37 Freq: Status: Active Protocol: Document 02/14/24 13:40 [facility] (Rec: 02/14/24 15:40 [facility] [id number]) Out-Patient Physical Therapy Visit Information Visit Information Visit Type Treatment Note Visit Start Time 14:40 Visit Stop Time 15:20 Visit Number 2 Number of FORESTRY INSTRUCTOR Visits 1 Evaluation Information Evaluation Date 02/11/24 Precautions Precautions December 25 2023: R Ant DEIDRA PT-OP-B Current Condition Start: 02/05/24 16:37 Freq: Status: Active Protocol: Document 02/11/24 12:30 [facility] (Rec: 02/11/24 15:17 [facility] [id number]) Current Condition History of Current Condition Onset Date December 25 2023 Current Complaints R ant DEIDRA History of Current Condition Pt reports pain and numbness in R thigh since R DEIDRA. Doctor said at about 6 weeks, the numbness starts to heal slowly . Other than that, hip seems ok. She walked up to the football field and sat on it and walked back home and the next day got really nauseas and went to ER and had COVID. Pt reports she is cleared to turn leg to side. Knee was painful prior to sx and after surgery, it has been better and is worried about pushing range to avoid hurting knee. Can't clip toe nails. Pt reports she is cleared to move anyway now. Xrays looked good . chronic hx of B hip pain and R knee pain w/recent R sided pain worsening. OVerall feels like it is healing well. Spent 1 night in hospital. She was given gabapentin but it made her sleepy and it didn't help w/pain. pt reports she recently (about last week) gave up cane/walker. She still sits on a chair in tub. having an easier time getting socks on but does still struggle. Has noticed L achilles limitingher when attempting to go for short walks liek a few blocks. Pt feels weak Treatment Goals Patient/Caregiver Goals be able to move leg to get toenails trimmed/get socks on easier, be able to go for long walks (flat [place] 4miles); improve RLE flexibility (like cross leg) PT-OP-C Subjective Start: 02/05/24 16:37 Freq: Status: Active Protocol: Document 02/14/24 13:40 [facility] (Rec: 02/14/24 15:40 [facility] [id number]) OP-PT Subjective Patient Comments Patient Comments Pt reports still nerve pain anterior R thigh to knee, can' t cross leg yet. Continues to have numbness R anterior thigh , has self trialed sensitization distal R knee to proximal anterior R hip but not seeing any changes. She is aware does take time and no guarantee will completely come back. Her L ankle has been noticeable since before restarting PT this encounter, had twinge today so walking slowly to keep comfortable ROM . PT-OP-D Balance Start: 02/05/24 16:37 Freq: Status: Active Protocol: Document 02/11/24 12:30 [facility] (Rec: 02/11/24 15:17 [facility] [id number]) Balance Tests Single Limb Standing Single Limb- Right 1 sec Single Limb- Left 4 sec PT-OP-G Mobility & Gait Start: 02/05/24 16:37 Freq: Status: Active Protocol: Document 02/11/24 12:30 [facility] (Rec: 02/11/24 15:17 [facility] [id number]) OP Gait Assessment Comments Gait Comments stiff amb, no push off or ext B hips, WBOS, lat leaning PT-OP-K Range of Motion Start: 02/05/24 16:37 Freq: Status: Active Protocol: Document 02/11/24 12:30 [facility] (Rec: 02/11/24 15:17 [facility] [id number]) Hip Goniometric Range of Motion Hip Right Active Flexion w/Knee Flexed 80 Straight Leg Raise 49 Abduction 16 Internal Rotation 24 External Rotation 5 Comments tightness of R scar Left Active Flexion w/Knee Flexed 101 Straight Leg Raise 50 Abduction 18 Internal Rotation 17 External Rotation 8 PT-OP-M Strength Start: 02/05/24 16:37 Freq: Status: Active Protocol: Document 02/11/24 12:30 [facility] (Rec: 02/11/24 15:17 [facility] [id number]) Hip Strength Hip Manual Muscle Testing Right Flexion (L2) 3+ Fair+ Abduction 3 Fair External Rotation 4- Good- Internal Rotation 3+ Fair+ Left Flexion (L2) 4- Good- Abduction 3+ Fair+ External Rotation 3 Fair Internal Rotation 4 Good Knee Strength Knee Manual Muscle Testing Right Flexion (S2) 3+ Fair+ Extension (L3) 3+ Fair+ Left Flexion (S2) 4- Good- Extension (L3) 4 Good Ankle/Foot Strength Ankle and Foot Manual Muscle Testing Right Dorsiflexion (L4) 5 Normal Plantarflexion (S1) 4+ Good+ Left Dorsiflexion (L4) 5 Normal Plantarflexion (S1) 5 Normal Comments PF tested seated PT-OP-Q Treatments Start: 02/05/24 16:37 Freq: Status: Active Protocol: Document 02/14/24 13:40 [facility] (Rec: 02/14/24 15:40 [facility] [id number]) Gym Equipment Shuttle Balance Red Details WBOS Reps/Duration 4 min Comments wt shifts stationary HTs CG- Jean Carlos Therapeutic Exercises Sitting Exercises march Side bilateral Resistance L1 light blue at feet Equipment Used elevated table approx 22 Reps/Minutes 15 Comments cued trunk stationary stretch Sitting Exercise Name HS Side bilateral Reps/Minutes 60 sec Comments good feedback posterior thigh stretch Standing Exercises marching Side bilateral Resistance L1 at feet Equipment Used light contact table 1 UE Reps/Minutes x10 Comments L thigh tiring, still numbness tingling sit to stand Side bilateral Resistance AROM Equipment Used arms across chest, mesh chair Reps/Minutes 15 Comments cued slower sit full sit to chair hip abd Side bilateral Resistance L1 at ankles Equipment Used contact table BUE light Reps/Minutes 2x10 Comments cued tall posture, WB needed Manual Therapy Treatment Consent Patient gave verbal consent for manual Yes treatment Soft Tissue Mobilization Scar R anterior hip Mobilization Type Myofascial Release Intensity/Depth Superficial Body Position Hooklying Comments manual and ed self carryover, sup/inf/ med/lat R leg Body Location R TFL, RF Mobilization Type Myofascial Release,Rolling Intensity/Depth Superficial Body Position Hooklying Comments manual and ed self application PT-OP-T Assessment and Plan Start: 02/05/24 16:37 Freq: Status: Active Protocol: Document 02/14/24 13:40 [facility] (Rec: 02/14/24 15:40 [facility] [id number]) Physical Therapy Assessment Goals activity Short Term Goal (STG) Pt will be able to return to walks of at least .5 mile w/o inc pain w/o AD. STG Duration 03/23 Custodial Goal (LTG) Pt will be able to return to walks of at least 2 mile w/o inc pain w/o AD. LTG Duration 04/21 mobility Accounting Advisory Services Manager Goal (LTG) Pt will be able to cut toe nails, cross legs, put on socks w/o feeling of loss of mobility LTG Duration 04/21 strength Short Term Goal (STG) Pt will be indep w/HEP STG Duration 03/18 Custodial Goal (LTG) Pt will score at least 4+/5 on all LE MMT to show improved strength and stability to allow doing typical daily activities and return to work w/o limitation LTG Duration 04/21 LEFS Impairment 26 Short Term Goal (STG) Pt will score at least 45 on LEFS to show improved functional ability. STG Duration 03/18 Accounting Advisory Services Manager Goal (LTG) Pt will score at least 58 on LEFS to show improved functional ability. LTG Duration 04/21 Assessment Summary Assessment Pt presents 7.5 weeks s/p R ant DEIDRA. She tolerated gentle scar and MF R anterior thigh STMs and instruction on how continue self application to reduce rope like palpation could resist R hip ROM. Pt good tolerance to ther ex, cues for slower and hip hinge fully eccentric sitting control. Trialed standing resisted march for progress strengthening functional mobility and shuttle balance today for postural and wt shift correction, improved less support with cuing COG over HAN pelvic under upper body able to incorporate head turns. Noted improved wt shift wB into RLE increased stance time gait leaving. Physical Therapy Plan Frequency and Duration Frequency of Treatment 1-2x/wk Duration of treatment (weeks) 10 Plan of Care Start Date 02/11/24 Plan of Care End Date 04/21/24 Therapeutic Interventions Therapeutic Interventions Balance Training,Gait Training ,Home Exercise Program,Joint Mobilizations,Manual Therapy, Neuromuscular Re-education, Orthotic/Prosthetic Management ,Patient/Caregiver Education, Self-Care/Home Management,Soft Tissue Mobilization,Taping, Therapeutic Activities, Therapeutic Exercises Modalities Cold Pack/Ice Massage,Electric Stimulation,Hot Packs Next Visit Focus/Plan Next Note Type Treatment Note Next Visit Plan Review HEP, continue shuttle balance, add hurdles next. POC: start gentle hip stretches; manual to hip, scar and thigh mm to improve mobility,
--- NOTE | 2024-02-18 10:33 | PT.OTN ---
Current Diagnoses Unilateral primary osteoarthritis, right hip (02/18/24) Pain in right hip (02/18/24) Encounter for other preprocedural examination (02/18/24) Physical Therapy Treatment Note PT-OP-A Visit Information Start: 02/05/24 16:37 Freq: Status: Active Protocol: Document 02/18/24 09:49 [facility] (Rec: 02/18/24 10:33 [facility] [id number]) Out-Patient Physical Therapy Visit Information Visit Information Visit Type Treatment Note Visit Start Time 09:50 Visit Stop Time 10:30 Visit Number 3 Number of VALIDATION INTERN Visits 0 PT-OP-B Current Condition Start: 02/05/24 16:37 Freq: Status: Active Protocol: Document 02/11/24 12:30 [facility] (Rec: 02/11/24 15:17 [facility] [id number]) Current Condition History of Current Condition Onset Date December 25 2023 Current Complaints R ant DEIDRA History of Current Condition Pt reports pain and numbness in R thigh since R DEIDRA. Doctor said at about 6 weeks, the numbness starts to heal slowly . Other than that, hip seems ok. She walked up to the football field and sat on it and walked back home and the next day got really nauseas and went to ER and had COVID. Pt reports she is cleared to turn leg to side. Knee was painful prior to sx and after surgery, it has been better and is worried about pushing range to avoid hurting knee. Can't clip toe nails. Pt reports she is cleared to move anyway now. Xrays looked good . chronic hx of B hip pain and R knee pain w/recent R sided pain worsening. OVerall feels like it is healing well. Spent 1 night in hospital. She was given gabapentin but it made her sleepy and it didn't help w/pain. pt reports she recently (about last week) gave up cane/walker. She still sits on a chair in tub. having an easier time getting socks on but does still struggle. Has noticed L achilles limitingher when attempting to go for short walks liek a few blocks. Pt feels weak Treatment Goals Patient/Caregiver Goals be able to move leg to get toenails trimmed/get socks on easier, be able to go for long walks (flat [place] 4miles); improve RLE flexibility (like cross leg) PT-OP-C Subjective Start: 02/05/24 16:37 Freq: Status: Active Protocol: Document 02/18/24 09:49 [facility] (Rec: 02/18/24 10:33 [facility] [id number]) OP-PT Subjective Patient Comments Patient Comments pt reports L ankle keeps bothering her if she does try to walk and is limping d/t walking here. PT-OP-D Balance Start: 02/05/24 16:37 Freq: Status: Active Protocol: Document 02/11/24 12:30 [facility] (Rec: 02/11/24 15:17 [facility] [id number]) Balance Tests Single Limb Standing Single Limb- Right 1 sec Single Limb- Left 4 sec PT-OP-G Mobility & Gait Start: 02/05/24 16:37 Freq: Status: Active Protocol: Document 02/11/24 12:30 [facility] (Rec: 02/11/24 15:17 [facility] [id number]) OP Gait Assessment Comments Gait Comments stiff amb, no push off or ext B hips, WBOS, lat leaning PT-OP-K Range of Motion Start: 02/05/24 16:37 Freq: Status: Active Protocol: Document 02/11/24 12:30 [facility] (Rec: 02/11/24 15:17 [facility] [id number]) Hip Goniometric Range of Motion Hip Right Active Flexion w/Knee Flexed 80 Straight Leg Raise 49 Abduction 16 Internal Rotation 24 External Rotation 5 Comments tightness of R scar Left Active Flexion w/Knee Flexed 101 Straight Leg Raise 50 Abduction 18 Internal Rotation 17 External Rotation 8 PT-OP-M Strength Start: 02/05/24 16:37 Freq: Status: Active Protocol: Document 02/11/24 12:30 [facility] (Rec: 02/11/24 15:17 [facility] [id number]) Hip Strength Hip Manual Muscle Testing Right Flexion (L2) 3+ Fair+ Abduction 3 Fair External Rotation 4- Good- Internal Rotation 3+ Fair+ Left Flexion (L2) 4- Good- Abduction 3+ Fair+ External Rotation 3 Fair Internal Rotation 4 Good Knee Strength Knee Manual Muscle Testing Right Flexion (S2) 3+ Fair+ Extension (L3) 3+ Fair+ Left Flexion (S2) 4- Good- Extension (L3) 4 Good Ankle/Foot Strength Ankle and Foot Manual Muscle Testing Right Dorsiflexion (L4) 5 Normal Plantarflexion (S1) 4+ Good+ Left Dorsiflexion (L4) 5 Normal Plantarflexion (S1) 5 Normal Comments PF tested seated PT-OP-Q Treatments Start: 02/05/24 16:37 Freq: Status: Active Protocol: Document 02/18/24 09:49 [facility] (Rec: 02/18/24 10:33 [facility] [id number]) Gym Equipment Shuttle Balance Red Comments Fwd & side: WBOS balance & wt shifts Therapeutic Exercises Sitting Exercises march Side bilateral Resistance L1 light blue at feet Reps/Minutes 15 Comments cues for posture & core stretch Sitting Exercise Name HS Side bilateral Reps/Minutes 60 sec Comments cues for straight back Standing Exercises step up Side right Equipment Used 4 in step no rail Reps/Minutes 10 stretch Standing Exercise Name calf on step DL Side bilateral Reps/Minutes 60 sec resisted walk Standing Exercise Name 1. side step 2. fwd/bwk Side bilateral Equipment Used L1 Reps/Minutes 20ft ea B marching Side bilateral Resistance L1 at feet Equipment Used light contact table 1 UE Reps/Minutes x10 Comments cues for DF sit to stand Side bilateral Resistance AROM Equipment Used arms across chest, mesh chair Reps/Minutes 15 Comments cued slower sit full sit to chair hip abd Side bilateral Resistance L1 at ankles Equipment Used contact table BUE light Reps/Minutes 2x10 Comments cued tall posture, WB needed Manual Therapy Treatment Consent Patient gave verbal consent for manual Yes treatment Soft Tissue Mobilization R leg Body Location R add, ITB Mobilization Type Myofascial Release,Rolling Intensity/Depth Moderate Body Position Hooklying Comments w/hip IR/ER Joint Mobilizations hip Grade II Comments free the ball IR/ER FM hooklying & inf glide FM Neuro Re-Education Treatment Balance Activities hurdles Equipment 6 hurdles Comments 1. fwd reciprocal over x8 2. sidestep B x2 PT-OP-T Assessment and Plan Start: 02/05/24 16:37 Freq: Status: Active Protocol: Document 02/18/24 09:49 [facility] (Rec: 02/18/24 10:33 [facility] [id number]) Physical Therapy Assessment Goals activity Short Term Goal (STG) Pt will be able to return to walks of at least .5 mile w/o inc pain w/o AD. STG Duration 03/23 Mcc Goal (LTG) Pt will be able to return to walks of at least 2 mile w/o inc pain w/o AD. LTG Duration 04/21 mobility Mcc Goal (LTG) Pt will be able to cut toe nails, cross legs, put on socks w/o feeling of loss of mobility LTG Duration 04/21 strength Short Term Goal (STG) Pt will be indep w/HEP STG Duration 03/18 Travel Registered Nurse [facility] Goal (LTG) Pt will score at least 4+/5 on all LE MMT to show improved strength and stability to allow doing typical daily activities and return to work w/o limitation LTG Duration 04/21 LEFS Impairment 26 Short Term Goal (STG) Pt will score at least 45 on LEFS to show improved functional ability. STG Duration 03/18 Mcc Goal (LTG) Pt will score at least 58 on LEFS to show improved functional ability. LTG Duration 04/21 Assessment Summary Assessment Pt did well with exercises w/ cues for posture throughout. Improved hip flex and IR/ER w/ manual. Signfiicant mm tightness. Physical Therapy Plan Frequency and Duration Frequency of Treatment 1-2x/wk Duration of treatment (weeks) 10 Plan of Care Start Date 02/11/24 Plan of Care End Date 04/21/24 Next Visit Focus/Plan Next Note Type Treatment Note Next Visit Plan cont to advance strength exercises and balance POC: start gentle hip stretches; manual to hip, scar and thigh mm to improve mobility,
--- NOTE | 2024-02-20 15:15 | PT.OTN ---
Current Diagnoses Unilateral primary osteoarthritis, right hip (02/20/24) Pain in right hip (02/20/24) Encounter for other preprocedural examination (02/20/24) Physical Therapy Treatment Note PT-OP-A Visit Information Start: 02/05/24 16:37 Freq: Status: Active Protocol: Document 02/20/24 14:28 [facility] (Rec: 02/20/24 15:23 [facility] [id number]) Out-Patient Physical Therapy Visit Information Visit Information Visit Type Treatment Note Visit Start Time 14:30 Visit Stop Time 15:15 Visit Number 4 Number of RELIEF DRILLER Visits 1 Evaluation Information Evaluation Date 02/11/24 Precautions Precautions December 25 2023: R Ant DEIDRA PT-OP-B Current Condition Start: 02/05/24 16:37 Freq: Status: Active Protocol: Document 02/11/24 12:30 [facility] (Rec: 02/11/24 15:17 [facility] [id number]) Current Condition History of Current Condition Onset Date December 25 2023 Current Complaints R ant DEIDRA History of Current Condition Pt reports pain and numbness in R thigh since R DEIDRA. Doctor said at about 6 weeks, the numbness starts to heal slowly . Other than that, hip seems ok. She walked up to the football field and sat on it and walked back home and the next day got really nauseas and went to ER and had COVID. Pt reports she is cleared to turn leg to side. Knee was painful prior to sx and after surgery, it has been better and is worried about pushing range to avoid hurting knee. Can't clip toe nails. Pt reports she is cleared to move anyway now. Xrays looked good . chronic hx of B hip pain and R knee pain w/recent R sided pain worsening. OVerall feels like it is healing well. Spent 1 night in hospital. She was given gabapentin but it made her sleepy and it didn't help w/pain. pt reports she recently (about last week) gave up cane/walker. She still sits on a chair in tub. having an easier time getting socks on but does still struggle. Has noticed L achilles limitingher when attempting to go for short walks liek a few blocks. Pt feels weak Treatment Goals Patient/Caregiver Goals be able to move leg to get toenails trimmed/get socks on easier, be able to go for long walks (flat [place] 4miles); improve RLE flexibility (like cross leg) PT-OP-C Subjective Start: 02/05/24 16:37 Freq: Status: Active Protocol: Document 02/20/24 14:28 [facility] (Rec: 02/20/24 15:23 [facility] [id number]) OP-PT Subjective Patient Comments Patient Comments Pt reports still has numbness and burning/irritation R mihir/lateral thigh. Discomfort R anterior hip when comes to stand but wt shifts, cautious about initial step is feeling stable. L foot heel pain now turned into top of foot pain too. She forgot to ice L ankle as suggested by PT last tx. PT-OP-D Balance Start: 02/05/24 16:37 Freq: Status: Active Protocol: Document 02/11/24 12:30 [facility] (Rec: 02/11/24 15:17 [facility] [id number]) Balance Tests Single Limb Standing Single Limb- Right 1 sec Single Limb- Left 4 sec PT-OP-G Mobility & Gait Start: 02/05/24 16:37 Freq: Status: Active Protocol: Document 02/11/24 12:30 [facility] (Rec: 02/11/24 15:17 [facility] [id number]) OP Gait Assessment Comments Gait Comments stiff amb, no push off or ext B hips, WBOS, lat leaning PT-OP-K Range of Motion Start: 02/05/24 16:37 Freq: Status: Active Protocol: Document 02/11/24 12:30 [facility] (Rec: 02/11/24 15:17 [facility] [id number]) Hip Goniometric Range of Motion Hip Right Active Flexion w/Knee Flexed 80 Straight Leg Raise 49 Abduction 16 Internal Rotation 24 External Rotation 5 Comments tightness of R scar Left Active Flexion w/Knee Flexed 101 Straight Leg Raise 50 Abduction 18 Internal Rotation 17 External Rotation 8 PT-OP-M Strength Start: 02/05/24 16:37 Freq: Status: Active Protocol: Document 02/11/24 12:30 [facility] (Rec: 02/11/24 15:17 [facility] [id number]) Hip Strength Hip Manual Muscle Testing Right Flexion (L2) 3+ Fair+ Abduction 3 Fair External Rotation 4- Good- Internal Rotation 3+ Fair+ Left Flexion (L2) 4- Good- Abduction 3+ Fair+ External Rotation 3 Fair Internal Rotation 4 Good Knee Strength Knee Manual Muscle Testing Right Flexion (S2) 3+ Fair+ Extension (L3) 3+ Fair+ Left Flexion (S2) 4- Good- Extension (L3) 4 Good Ankle/Foot Strength Ankle and Foot Manual Muscle Testing Right Dorsiflexion (L4) 5 Normal Plantarflexion (S1) 4+ Good+ Left Dorsiflexion (L4) 5 Normal Plantarflexion (S1) 5 Normal Comments PF tested seated PT-OP-Q Treatments Start: 02/05/24 16:37 Freq: Status: Active Protocol: Document 02/20/24 14:28 [facility] (Rec: 02/20/24 15:23 [facility] [id number]) Therapeutic Exercises Sitting Exercises march Side bilateral Resistance L1 light blue at feet Equipment Used mesh chair Reps/Minutes 15 Comments cues for posture & core stretch Sitting Exercise Name HS Side bilateral Reps/Minutes 60 sec Comments cues for straight back, hip hinge posterior thigh gentle stretch Standing Exercises step up Standing Exercise Name SL repeated- Side right Equipment Used 4 in step (no rail), 6 step need L HR support Reps/Minutes 10 Comments good stable 4, cues slower pacing soft LLE foot landing resisted walk Standing Exercise Name 1. side step 2. fwd/bwk Side bilateral Equipment Used L1 (next tx increase L2) Reps/Minutes 20ft ea B Comments cued COG over HAN keeping toes down marching Side bilateral Resistance L1 at feet (increased L2 band next tx) Equipment Used light contact table 1 UE Reps/Minutes x10 Comments cues for DF hip abd Side bilateral Resistance L1 at ankles (next tx add L2 band) Equipment Used contact table BUE light Reps/Minutes 2x10 Comments cued tall posture, WB needed Manual Therapy Treatment Consent Patient gave verbal consent for manual Yes treatment Soft Tissue Mobilization Scar R anterior hip Mobilization Type Myofascial Release Intensity/Depth Superficial Body Position Hooklying Comments manual and ed review self R leg Body Location R add, ITB Mobilization Type Myofascial Release,Rolling Intensity/Depth Moderate Body Position Hooklying Comments w/hip IR/ER Joint Mobilizations hip Grade II Comments free the ball IR/ER FM hooklying & inf glide FM Self-Care/Home Management Treatment Education Patient Education Joint Protection,Pain Management,Safety Other Education Discussed with pt to contact physician regarding continued and worsening L ankle pain heel now anterior L ankle. Suggested can utilize cold pack and acquire ankle sleeve for added support in the meantime but also be mindful of eccentric LLE advancement during gait and stairs for pain reduction. PT-OP-T Assessment and Plan Start: 02/05/24 16:37 Freq: Status: Active Protocol: Document 02/20/24 14:28 [facility] (Rec: 02/20/24 15:23 SP [id number]) Physical Therapy Assessment Goals activity Short Term Goal (STG) Pt will be able to return to walks of at least .5 mile w/o inc pain w/o AD. STG Duration 03/23 Usp Goal (LTG) Pt will be able to return to walks of at least 2 mile w/o inc pain w/o AD. LTG Duration 04/21 mobility Usp Goal (LTG) Pt will be able to cut toe nails, cross legs, put on socks w/o feeling of loss of mobility LTG Duration 04/21 strength Short Term Goal (STG) Pt will be indep w/HEP STG Duration 03/18 Hazardous Materials Handler Goal (LTG) Pt will score at least 4+/5 on all LE MMT to show improved strength and stability to allow doing typical daily activities and return to work w/o limitation LTG Duration 04/21 LEFS Impairment 26 Short Term Goal (STG) Pt will score at least 45 on LEFS to show improved functional ability. STG Duration 03/18 Hazardous Materials Handler Goal (LTG) Pt will score at least 58 on LEFS to show improved functional ability. LTG Duration 04/21 Assessment Summary Assessment Pt tolerated ther ex well today, cues for eccentric L>R LE landing during step ups and marching. Pt reports decreased stiffness and discomfort with increased IR and ER range in R hip after manual. RELIEF DRILLER discussed contacting physician regarding continued pain in L ankle, suggested can acquire L ankle sleeve for added support for the meantime. Physical Therapy Plan Frequency and Duration Frequency of Treatment 1-2x/wk Duration of treatment (weeks) 10 Plan of Care Start Date 02/11/24 Plan of Care End Date 04/21/24 Therapeutic Interventions Therapeutic Interventions Balance Training,Gait Training ,Home Exercise Program,Joint Mobilizations,Manual Therapy, Neuromuscular Re-education, Orthotic/Prosthetic Management ,Patient/Caregiver Education, Self-Care/Home Management,Soft Tissue Mobilization,Taping, Therapeutic Activities, Therapeutic Exercises Modalities Cold Pack/Ice Massage,Electric Stimulation,Hot Packs Next Visit Focus/Plan Next Note Type Treatment Note Next Visit Plan Next tx increased resistance of exercises and advance strengthening and balance as tolerated. POC: start gentle hip stretches; manual to hip, scar and thigh mm to improve mobility,
--- NOTE | 2024-02-27 15:17 | PT.OTN ---
Current Diagnoses Unilateral primary osteoarthritis, right hip (02/27/24) Pain in right hip (02/27/24) Encounter for other preprocedural examination (02/27/24) Physical Therapy Treatment Note PT-OP-A Visit Information Start: 02/05/24 16:37 Freq: Status: Active Protocol: Document 02/27/24 14:34 SP (Rec: 02/27/24 15:48 SP [id number]) Out-Patient Physical Therapy Visit Information Visit Information Visit Type Treatment Note Visit Start Time 14:34 Visit Stop Time 15:17 Visit Number 5 Number of BUSINESS LEADER Visits 2 Evaluation Information Evaluation Date 02/11/24 Precautions Precautions December 25 2023: R Ant DEIDRA 02/21/24: L foot pain xray: impression: No acute bony abnormality, Calcaneal spur. PT-OP-B Current Condition Start: 02/05/24 16:37 Freq: Status: Active Protocol: Document 02/11/24 12:30 [facility] (Rec: 02/11/24 15:17 [facility] [id number]) Current Condition History of Current Condition Onset Date December 25 2023 Current Complaints R ant DEIDRA History of Current Condition Pt reports pain and numbness in R thigh since R DEIDRA. Doctor said at about 6 weeks, the numbness starts to heal slowly . Other than that, hip seems ok. She walked up to the football field and sat on it and walked back home and the next day got really nauseas and went to ER and had COVID. Pt reports she is cleared to turn leg to side. Knee was painful prior to sx and after surgery, it has been better and is worried about pushing range to avoid hurting knee. Can't clip toe nails. Pt reports she is cleared to move anyway now. Xrays looked good . chronic hx of B hip pain and R knee pain w/recent R sided pain worsening. OVerall feels like it is healing well. Spent 1 night in hospital. She was given gabapentin but it made her sleepy and it didn't help w/pain. pt reports she recently (about last week) gave up cane/walker. She still sits on a chair in tub. having an easier time getting socks on but does still struggle. Has noticed L achilles limitingher when attempting to go for short walks liek a few blocks. Pt feels weak Treatment Goals Patient/Caregiver Goals be able to move leg to get toenails trimmed/get socks on easier, be able to go for long walks (flat [place] 4miles); improve RLE flexibility (like cross leg) PT-OP-C Subjective Start: 02/05/24 16:37 Freq: Status: Active Protocol: Document 02/27/24 14:34 SP (Rec: 02/27/24 15:48 SP [id number]) OP-PT Subjective Patient Comments Patient Comments Pt reports saw physician for L foot pain and foot xray and has referral to executive receptionist or side splitter. Pt demonstrated antalgic gait no AD decreased stance time on L foot due to bone spur (per foot xray). She reports R anterior thigh less numbness feeling. She frustrated not able to perform standing exercises for R hip due to L ankle pain with WB. She wants to focus on non weight bearing can do in the meantime. PT-OP-D Balance Start: 02/05/24 16:37 Freq: Status: Active Protocol: Document 02/11/24 12:30 [facility] (Rec: 02/11/24 15:17 [facility] [id number]) Balance Tests Single Limb Standing Single Limb- Right 1 sec Single Limb- Left 4 sec PT-OP-G Mobility & Gait Start: 02/05/24 16:37 Freq: Status: Active Protocol: Document 02/11/24 12:30 [facility] (Rec: 02/11/24 15:17 [facility] [id number]) OP Gait Assessment Comments Gait Comments stiff amb, no push off or ext B hips, WBOS, lat leaning PT-OP-K Range of Motion Start: 02/05/24 16:37 Freq: Status: Active Protocol: Document 02/11/24 12:30 [facility] (Rec: 02/11/24 15:17 [facility] [id number]) Hip Goniometric Range of Motion Hip Right Active Flexion w/Knee Flexed 80 Straight Leg Raise 49 Abduction 16 Internal Rotation 24 External Rotation 5 Comments tightness of R scar Left Active Flexion w/Knee Flexed 101 Straight Leg Raise 50 Abduction 18 Internal Rotation 17 External Rotation 8 PT-OP-M Strength Start: 02/05/24 16:37 Freq: Status: Active Protocol: Document 02/11/24 12:30 [facility] (Rec: 02/11/24 15:17 [facility] [id number]) Hip Strength Hip Manual Muscle Testing Right Flexion (L2) 3+ Fair+ Abduction 3 Fair External Rotation 4- Good- Internal Rotation 3+ Fair+ Left Flexion (L2) 4- Good- Abduction 3+ Fair+ External Rotation 3 Fair Internal Rotation 4 Good Knee Strength Knee Manual Muscle Testing Right Flexion (S2) 3+ Fair+ Extension (L3) 3+ Fair+ Left Flexion (S2) 4- Good- Extension (L3) 4 Good Ankle/Foot Strength Ankle and Foot Manual Muscle Testing Right Dorsiflexion (L4) 5 Normal Plantarflexion (S1) 4+ Good+ Left Dorsiflexion (L4) 5 Normal Plantarflexion (S1) 5 Normal Comments PF tested seated PT-OP-Q Treatments Start: 02/05/24 16:37 Freq: Status: Active Protocol: Document 02/27/24 14:34 SP (Rec: 02/27/24 15:48 [id number]) Therapeutic Exercises Supine Exercises Single KFO Supine Exercise Name added to HEP Side right Resistance AROM Reps/Minutes 10 SH x5 hip abduction Supine Exercise Name trialed in PT for non WB strengthening Side right Equipment Used opposite leg Reps/Minutes 2x6 reps heel slide Supine Exercise Name trialed in PT for non WB strengthening Side right Reps/Minutes x10 Comments cued slight glide Sidelying Exercises hip abduction Sidelying Exercise Name trialed in PT Side right Resistance AROM Equipment Used pillows under R top leg Reps/Minutes 2x10 Comments tactile cue stacked on side Sitting Exercises heel & toe raises Sitting Exercise Name initiated in PT and added toHEP Side bilateral Resistance AROM Reps/Minutes 2x10 Comments slow gentle AROM- painfree reported clamshell Sitting Exercise Name initiated in PT- added to HEP Side bilateral Resistance Tb #2 aqua green Reps/Minutes 2x10 Comments little shaky eccentric return. LAQ Sitting Exercise Name added to HEP (strengthening, non WB) Side right Resistance AROM>TB #1> #2 Reps/Minutes x10 reps each resistance Comments cued slower pacing eccentric lower. september Sitting Exercise Name reviewed Side bilateral Resistance L1>2 light blue at thighs Equipment Used mesh chair Reps/Minutes 15 Comments improved posture & core stretch Sitting Exercise Name HS Side bilateral Reps/Minutes 60 sec Comments cues for straight back, hip hinge posterior thigh gentle stretch PT-OP-T Assessment and Plan Start: 02/05/24 16:37 Freq: Status: Active Protocol: Document 02/27/24 14:34 SP (Rec: 02/27/24 15:48 SP [id number]) Physical Therapy Assessment Goals activity Short Term Goal (STG) Pt will be able to return to walks of at least .5 mile w/o inc pain w/o AD. 02/27/24: unable at this time due to L foot pain in weight bearing and xray calcaneal spur. STG Duration 03/23 slow progression 02/27/24 Care Home Goal (LTG) Pt will be able to return to walks of at least 2 mile w/o inc pain w/o AD. LTG Duration 04/21 mobility Care Home Goal (LTG) Pt will be able to cut toe nails, cross legs, put on socks w/o feeling of loss of mobility LTG Duration 04/21 strength Short Term Goal (STG) Pt will be indep w/HEP STG Duration 03/18 Motion Picture Projectionist Goal (LTG) Pt will score at least 4+/5 on all LE MMT to show improved strength and stability to allow doing typical daily activities and return to work w/o limitation LTG Duration 04/21 LEFS Impairment 26 Short Term Goal (STG) Pt will score at least 45 on LEFS to show improved functional ability. STG Duration 03/18 Motion Picture Projectionist Goal (LTG) Pt will score at least 58 on LEFS to show improved functional ability. LTG Duration 04/21 Assessment Summary Assessment Pt continues have L ankle & foot pain. Tx focused on non weight bearing R hip flexibility and strengthening progression AROM against gravity and seated resistance band, only R anterior thigh quad tiring reported no pain. No pain to L ankle reported. Will progress next tx as tolerated. Physical Therapy Plan Frequency and Duration Frequency of Treatment 1-2x/wk Duration of treatment (weeks) 10 Plan of Care Start Date 02/11/24 Plan of Care End Date 04/21/24 Therapeutic Interventions Therapeutic Interventions Balance Training,Gait Training ,Home Exercise Program,Joint Mobilizations,Manual Therapy, Neuromuscular Re-education, Orthotic/Prosthetic Management ,Patient/Caregiver Education, Self-Care/Home Management,Soft Tissue Mobilization,Taping, Therapeutic Activities, Therapeutic Exercises Modalities Cold Pack/Ice Massage,Electric Stimulation,Hot Packs Next Visit Focus/Plan Next Note Type Treatment Note Next Visit Plan Assess tolerance to added supine/side/seated ther ex nonweightbearing LLE. Progress per PT POC: increased resistance of exercises and advance strengthening and balance as tolerated. POC: start gentle hip stretches; manual to hip, scar and thigh mm to improve mobility,
--- NOTE | 2024-03-05 09:01 | PT.OTN ---
Current Diagnoses Unilateral primary osteoarthritis, right hip (03/05/24) Pain in right hip (03/05/24) Encounter for other preprocedural examination (03/05/24) Physical Therapy Treatment Note PT-OP-A Visit Information Start: 02/05/24 16:37 Freq: Status: Active Protocol: Document 03/05/24 08:22 [facility] (Rec: 03/05/24 09:01 [facility] [id number]) Out-Patient Physical Therapy Visit Information Visit Information Visit Type Treatment Note Visit Start Time 08:20 Visit Stop Time 09:00 Visit Number 6 Number of ASSOCIATE PROFESSOR OF MANAGEMENT Visits 0 PT-OP-B Current Condition Start: 02/05/24 16:37 Freq: Status: Active Protocol: Document 02/11/24 12:30 [facility] (Rec: 02/11/24 15:17 [facility] [id number]) Current Condition History of Current Condition Onset Date December 25 2023 Current Complaints R ant DEIDRA History of Current Condition Pt reports pain and numbness in R thigh since R DEIDRA. Doctor said at about 6 weeks, the numbness starts to heal slowly . Other than that, hip seems ok. She walked up to the football field and sat on it and walked back home and the next day got really nauseas and went to ER and had COVID. Pt reports she is cleared to turn leg to side. Knee was painful prior to sx and after surgery, it has been better and is worried about pushing range to avoid hurting knee. Can't clip toe nails. Pt reports she is cleared to move anyway now. Xrays looked good . chronic hx of B hip pain and R knee pain w/recent R sided pain worsening. OVerall feels like it is healing well. Spent 1 night in hospital. She was given gabapentin but it made her sleepy and it didn't help w/pain. pt reports she recently (about last week) gave up cane/walker. She still sits on a chair in tub. having an easier time getting socks on but does still struggle. Has noticed L achilles limitingher when attempting to go for short walks liek a few blocks. Pt feels weak Treatment Goals Patient/Caregiver Goals be able to move leg to get toenails trimmed/get socks on easier, be able to go for long walks (flat [place] 4miles); improve RLE flexibility (like cross leg) PT-OP-C Subjective Start: 02/05/24 16:37 Freq: Status: Active Protocol: Document 03/05/24 08:22 [facility] (Rec: 03/05/24 09:01 [facility] [id number]) OP-PT Subjective Patient Comments Patient Comments Pt reports ankle still limits her. She is frustrated d/t wanting to do walking for hip. PT-OP-D Balance Start: 02/05/24 16:37 Freq: Status: Active Protocol: Document 02/11/24 12:30 [facility] (Rec: 02/11/24 15:17 [facility] [id number]) Balance Tests Single Limb Standing Single Limb- Right 1 sec Single Limb- Left 4 sec PT-OP-G Mobility & Gait Start: 02/05/24 16:37 Freq: Status: Active Protocol: Document 02/11/24 12:30 [facility] (Rec: 02/11/24 15:17 [facility] [id number]) OP Gait Assessment Comments Gait Comments stiff amb, no push off or ext B hips, WBOS, lat leaning PT-OP-K Range of Motion Start: 02/05/24 16:37 Freq: Status: Active Protocol: Document 02/11/24 12:30 [facility] (Rec: 02/11/24 15:17 [facility] [id number]) Hip Goniometric Range of Motion Hip Right Active Flexion w/Knee Flexed 80 Straight Leg Raise 49 Abduction 16 Internal Rotation 24 External Rotation 5 Comments tightness of R scar Left Active Flexion w/Knee Flexed 101 Straight Leg Raise 50 Abduction 18 Internal Rotation 17 External Rotation 8 PT-OP-M Strength Start: 02/05/24 16:37 Freq: Status: Active Protocol: Document 02/11/24 12:30 [facility] (Rec: 02/11/24 15:17 [facility] [id number]) Hip Strength Hip Manual Muscle Testing Right Flexion (L2) 3+ Fair+ Abduction 3 Fair External Rotation 4- Good- Internal Rotation 3+ Fair+ Left Flexion (L2) 4- Good- Abduction 3+ Fair+ External Rotation 3 Fair Internal Rotation 4 Good Knee Strength Knee Manual Muscle Testing Right Flexion (S2) 3+ Fair+ Extension (L3) 3+ Fair+ Left Flexion (S2) 4- Good- Extension (L3) 4 Good Ankle/Foot Strength Ankle and Foot Manual Muscle Testing Right Dorsiflexion (L4) 5 Normal Plantarflexion (S1) 4+ Good+ Left Dorsiflexion (L4) 5 Normal Plantarflexion (S1) 5 Normal Comments PF tested seated PT-OP-Q Treatments Start: 02/05/24 16:37 Freq: Status: Active Protocol: Document 03/05/24 08:22 [facility] (Rec: 03/05/24 09:01 [facility] [id number]) Therapeutic Exercises Supine Exercises bridge Side bilateral Reps/Minutes 5 sec x12 Sidelying Exercises reverse clamshells Side right Reps/Minutes 20 Comments cues control down clamshell Side right Reps/Minutes 20 hip abduction Side right Resistance AROM Equipment Used towel under side Reps/Minutes 2x10 Comments cues for leg alignment Sitting Exercises heel & toe raises Sitting Exercise Name initiated in PT and review HEP Side bilateral Resistance AROM Reps/Minutes 20 Comments slow gentle AROM- painfree reported clamshell Sitting Exercise Name review Side bilateral Resistance Tb #2 aqua green Reps/Minutes 15 Comments cues slow eccentric control LAQ Sitting Exercise Name added to HEP (strengthening, non WB) Side right Resistance Tband 2 Reps/Minutes x10 reps each Comments cued slower pacing eccentric lower. september Sitting Exercise Name reviewed Side bilateral Resistance L2 at thighs Reps/Minutes 15 Comments cues for posture stretch Sitting Exercise Name HS Side bilateral Reps/Minutes 60 sec Comments cues for straight back, hip hinge posterior thigh gentle stretch Manual Therapy Treatment Consent Patient gave verbal consent for manual Yes treatment Soft Tissue Mobilization R leg Body Location R add, TLF, ITB, HS Mobilization Type Myofascial Release,Rolling Intensity/Depth Moderate Comments w/abd, ER and flex Joint Mobilizations hip Joint R inf FM PT-OP-T Assessment and Plan Start: 02/05/24 16:37 Freq: Status: Active Protocol: Document 03/05/24 08:22 [facility] (Rec: 03/05/24 09:01 [facility] [id number]) Physical Therapy Assessment Goals activity Short Term Goal (STG) Pt will be able to return to walks of at least .5 mile w/o inc pain w/o AD. 02/27/24: unable at this time due to L foot pain in weight bearing and xray calcaneal spur. STG Duration 03/23 slow progression 02/27/24 Retirement Goal (LTG) Pt will be able to return to walks of at least 2 mile w/o inc pain w/o AD. LTG Duration 04/21 mobility Ride Mechanic Goal (LTG) Pt will be able to cut toe nails, cross legs, put on socks w/o feeling of loss of mobility LTG Duration 04/21 strength Short Term Goal (STG) Pt will be indep w/HEP STG Duration 03/18 Ride Mechanic Goal (LTG) Pt will score at least 4+/5 on all LE MMT to show improved strength and stability to allow doing typical daily activities and return to work w/o limitation LTG Duration 04/21 LEFS Impairment 26 Short Term Goal (STG) Pt will score at least 45 on LEFS to show improved functional ability. STG Duration 03/18 Ride Mechanic Goal (LTG) Pt will score at least 58 on LEFS to show improved functional ability. LTG Duration 04/21 Assessment Summary Assessment Pt still needs cues for positioning w/all exercises. She improves w/ cues though. She is iimproving w/ROM overall. Physical Therapy Plan Frequency and Duration Frequency of Treatment 1-2x/wk Duration of treatment (weeks) 10 Plan of Care Start Date 02/11/24 Plan of Care End Date 04/21/24 Next Visit Focus/Plan Next Note Type Treatment Note Next Visit Plan work nonwt bearing until further healing to L ankle. manual to improve hip range
--- NOTE | 2024-03-12 12:08 | PT.OTN ---
Current Diagnoses Unilateral primary osteoarthritis, right hip (03/12/24) Pain in right hip (03/12/24) Encounter for other preprocedural examination (03/12/24) Physical Therapy Treatment Note PT-OP-A Visit Information Start: 02/05/24 16:37 Freq: Status: Active Protocol: Document 03/12/24 11:20 SP (Rec: 03/12/24 12:00 SP [id number]) Out-Patient Physical Therapy Visit Information Visit Information Visit Type Treatment Note Visit Start Time 11:20 Visit Stop Time 12:08 Visit Number 7 Number of INVENTORY ASSOCIATE Visits 1 Evaluation Information Evaluation Date 02/11/24 Precautions Precautions December 25 2023: R Ant DEIDRA 02/21/24: L foot pain xray: impression: No acute bony abnormality, Calcaneal spur. PT-OP-B Current Condition Start: 02/05/24 16:37 Freq: Status: Active Protocol: Document 02/11/24 12:30 [facility] (Rec: 02/11/24 15:17 [facility] [id number]) Current Condition History of Current Condition Onset Date December 25 2023 Current Complaints R ant DEIDRA History of Current Condition Pt reports pain and numbness in R thigh since R DEIDRA. Doctor said at about 6 weeks, the numbness starts to heal slowly . Other than that, hip seems ok. She walked up to the football field and sat on it and walked back home and the next day got really nauseas and went to ER and had COVID. Pt reports she is cleared to turn leg to side. Knee was painful prior to sx and after surgery, it has been better and is worried about pushing range to avoid hurting knee. Can't clip toe nails. Pt reports she is cleared to move anyway now. Xrays looked good . chronic hx of B hip pain and R knee pain w/recent R sided pain worsening. OVerall feels like it is healing well. Spent 1 night in hospital. She was given gabapentin but it made her sleepy and it didn't help w/pain. pt reports she recently (about last week) gave up cane/walker. She still sits on a chair in tub. having an easier time getting socks on but does still struggle. Has noticed L achilles limitingher when attempting to go for short walks liek a few blocks. Pt feels weak Treatment Goals Patient/Caregiver Goals be able to move leg to get toenails trimmed/get socks on easier, be able to go for long walks (flat jo ann tompson 4miles); improve RLE flexibility (like cross leg) PT-OP-C Subjective Start: 02/05/24 16:37 Freq: Status: Active Protocol: Document 03/12/24 11:20 SP (Rec: 03/12/24 12:00 SP [id number]) OP-PT Subjective Patient Comments Patient Comments Pt arrives with no AD. She reports misplaced her L ankle rap. She states doesn't have the pain numbness, just numbness but feels is little better. PT-OP-D Balance Start: 02/05/24 16:37 Freq: Status: Active Protocol: Document 02/11/24 12:30 [facility] (Rec: 02/11/24 15:17 [facility] [id number]) Balance Tests Single Limb Standing Single Limb- Right 1 sec Single Limb- Left 4 sec PT-OP-G Mobility & Gait Start: 02/05/24 16:37 Freq: Status: Active Protocol: Document 02/11/24 12:30 [facility] (Rec: 02/11/24 15:17 [facility] [id number]) OP Gait Assessment Comments Gait Comments stiff amb, no push off or ext B hips, WBOS, lat leaning PT-OP-K Range of Motion Start: 02/05/24 16:37 Freq: Status: Active Protocol: Document 02/11/24 12:30 [facility] (Rec: 02/11/24 15:17 [facility] [id number]) Hip Goniometric Range of Motion Hip Right Active Flexion w/Knee Flexed 80 Straight Leg Raise 49 Abduction 16 Internal Rotation 24 External Rotation 5 Comments tightness of R scar Left Active Flexion w/Knee Flexed 101 Straight Leg Raise 50 Abduction 18 Internal Rotation 17 External Rotation 8 PT-OP-M Strength Start: 02/05/24 16:37 Freq: Status: Active Protocol: Document 02/11/24 12:30 [facility] (Rec: 02/11/24 15:17 [facility] [id number]) Hip Strength Hip Manual Muscle Testing Right Flexion (L2) 3+ Fair+ Abduction 3 Fair External Rotation 4- Good- Internal Rotation 3+ Fair+ Left Flexion (L2) 4- Good- Abduction 3+ Fair+ External Rotation 3 Fair Internal Rotation 4 Good Knee Strength Knee Manual Muscle Testing Right Flexion (S2) 3+ Fair+ Extension (L3) 3+ Fair+ Left Flexion (S2) 4- Good- Extension (L3) 4 Good Ankle/Foot Strength Ankle and Foot Manual Muscle Testing Right Dorsiflexion (L4) 5 Normal Plantarflexion (S1) 4+ Good+ Left Dorsiflexion (L4) 5 Normal Plantarflexion (S1) 5 Normal Comments PF tested seated PT-OP-Q Treatments Start: 02/05/24 16:37 Freq: Status: Active Protocol: Document 03/12/24 11:20 SP (Rec: 03/12/24 12:00 SP [id number]) Therapeutic Exercises Supine Exercises bridge Supine Exercise Name HEP reviewed Side bilateral Resistance AROM Reps/Minutes 10 reps, 5 sec x15 Comments cues for attention to task, less conversation Sidelying Exercises reverse clamshells Side right Resistance AROM Reps/Minutes 20 Comments cues control down clamshell Side right Resistance AROM Reps/Minutes 20 Comments slower eccentric control hip abduction Side right Resistance AROM Equipment Used towel under side Reps/Minutes 2x10 Comments cues for leg alignment Sitting Exercises R hip ER L garcia taps Sitting Exercise Name trialed in PT to assist progress AROM Side right Equipment Used seated on table Reps/Minutes 2x5 Comments little discomfort anterior R hip but lessened and more range up garcia with r heel & toe raises Sitting Exercise Name reviewed HEP Side bilateral Resistance AROM Reps/Minutes 20 Comments slow gentle AROM- painfree reported clamshell Sitting Exercise Name review Side bilateral Resistance Tb #3 aqua green Reps/Minutes 5 Sh x10 Comments improved form and hip tiring, pnfree LAQ Sitting Exercise Name REveiewed HEP Side right Resistance Tband 2>3 Reps/Minutes 2x10 reps each Comments good form, noted quad engagement september Sitting Exercise Name reviewed Side bilateral Resistance L>3 at feet Reps/Minutes 15 Comments improved posture Standing Exercises sit to stand Side bilateral Resistance AROM Equipment Used arms front Reps/Minutes 15 Comments cued slower sit full sit to chair PT-OP-T Assessment and Plan Start: 02/05/24 16:37 Freq: Status: Active Protocol: Document 03/12/24 11:20 SP (Rec: 03/12/24 12:00 SP [id number]) Physical Therapy Assessment Goals activity Short Term Goal (STG) Pt will be able to return to walks of at least .5 mile w/o inc pain w/o AD. 02/27/24: unable at this time due to L foot pain in weight bearing and xray calcaneal spur. 03/12/24: still unable to WB into L ankle well. STG Duration 03/23 slow progression 03/12/24 Grinding Wheel Facer Goal (LTG) Pt will be able to return to walks of at least 2 mile w/o inc pain w/o AD. LTG Duration 04/21 mobility Grinding Wheel Facer Goal (LTG) Pt will be able to cut toe nails, cross legs, put on socks w/o feeling of loss of mobility 03/12/24: can don socks by putting foot on bed deep knee flexion, very tight unable to cross R leg over L thigh. Initiated R LE garcia taps to start progress range. LTG Duration 04/21 slow progression 03/12/24 strength Short Term Goal (STG) Pt will be indep w/HEP STG Duration 03/18 [facility] Goal (LTG) Pt will score at least 4+/5 on all LE MMT to show improved strength and stability to allow doing typical daily activities and return to work w/o limitation LTG Duration 04/21 LEFS Impairment 26 Short Term Goal (STG) Pt will score at least 45 on LEFS to show improved functional ability. STG Duration 03/18 [facility] Goal (LTG) Pt will score at least 58 on LEFS to show improved functional ability. LTG Duration 04/21 Assessment Summary Assessment Pt required couple cues for attention to exercises at hand to help progress strength, tends to get distracted in conversation. She had good tolerance to ther ex with only muscle tiring but continues to requrire cuing for proper form and positioning with most exercises. She improves form with cues. Unable to progress standing activities due to pain in L foot during weight bearing. Physical Therapy Plan Frequency and Duration Frequency of Treatment 1-2x/wk Duration of treatment (weeks) 10 Plan of Care Start Date 02/11/24 Plan of Care End Date 04/21/24 Therapeutic Interventions Therapeutic Interventions Balance Training,Gait Training ,Home Exercise Program,Joint Mobilizations,Manual Therapy, Neuromuscular Re-education, Orthotic/Prosthetic Management ,Patient/Caregiver Education, Self-Care/Home Management,Soft Tissue Mobilization,Taping, Therapeutic Activities, Therapeutic Exercises Modalities Cold Pack/Ice Massage,Electric Stimulation,Hot Packs Next Visit Focus/Plan Next Note Type Treatment Note Next Visit Plan Assess if can progress to adding resistance to HEP. POC: work nonwt bearing until further healing to L ankle. manual to improve hip range
--- NOTE | 2024-03-17 11:20 | PT.OTN ---
Current Diagnoses Unilateral primary osteoarthritis, right hip (03/17/24) Pain in right hip (03/17/24) Encounter for other preprocedural examination (03/17/24) Physical Therapy Treatment Note PT-OP-A Visit Information Start: 02/05/24 16:37 Freq: Status: Active Protocol: Document 03/17/24 10:42 [facility] (Rec: 03/17/24 11:20 [facility] [id number]) Out-Patient Physical Therapy Visit Information Visit Information Visit Type Progress Note Visit Note 07/18 Visit Start Time 10:36 Visit Stop Time 11:15 Visit Number 8 Number of TOOLING ENGINEERING TECH Visits 0 PT-OP-B Current Condition Start: 02/05/24 16:37 Freq: Status: Active Protocol: Document 02/11/24 12:30 [facility] (Rec: 02/11/24 15:17 [facility] [id number]) Current Condition History of Current Condition Onset Date December 25 2023 Current Complaints R ant DEIDRA History of Current Condition Pt reports pain and numbness in R thigh since R DEIDRA. Doctor said at about 6 weeks, the numbness starts to heal slowly . Other than that, hip seems ok. She walked up to the football field and sat on it and walked back home and the next day got really nauseas and went to ER and had COVID. Pt reports she is cleared to turn leg to side. Knee was painful prior to sx and after surgery, it has been better and is worried about pushing range to avoid hurting knee. Can't clip toe nails. Pt reports she is cleared to move anyway now. Xrays looked good . chronic hx of B hip pain and R knee pain w/recent R sided pain worsening. OVerall feels like it is healing well. Spent 1 night in hospital. She was given gabapentin but it made her sleepy and it didn't help w/pain. pt reports she recently (about last week) gave up cane/walker. She still sits on a chair in tub. having an easier time getting socks on but does still struggle. Has noticed L achilles limitingher when attempting to go for short walks liek a few blocks. Pt feels weak Treatment Goals Patient/Caregiver Goals be able to move leg to get toenails trimmed/get socks on easier, be able to go for long walks (flat jo ann tompson 4miles); improve RLE flexibility (like cross leg) PT-OP-C Subjective Start: 02/05/24 16:37 Freq: Status: Active Protocol: Document 03/17/24 10:42 [facility] (Rec: 03/17/24 11:20 [facility] [id number]) OP-PT Subjective Patient Comments Patient Comments Pt reports ankle overall doing better but feels like more her foot on sup aspect more painful. PT-OP-D Balance Start: 02/05/24 16:37 Freq: Status: Active Protocol: Document 02/11/24 12:30 [facility] (Rec: 02/11/24 15:17 [facility] [id number]) Balance Tests Single Limb Standing Single Limb- Right 1 sec Single Limb- Left 4 sec PT-OP-G Mobility & Gait Start: 02/05/24 16:37 Freq: Status: Active Protocol: Document 02/11/24 12:30 [facility] (Rec: 02/11/24 15:17 [facility] [id number]) OP Gait Assessment Comments Gait Comments stiff amb, no push off or ext B hips, WBOS, lat leaning PT-OP-K Range of Motion Start: 02/05/24 16:37 Freq: Status: Active Protocol: Document 02/11/24 12:30 [facility] (Rec: 02/11/24 15:17 [facility] [id number]) Hip Goniometric Range of Motion Hip Right Active Flexion w/Knee Flexed 80 Straight Leg Raise 49 Abduction 16 Internal Rotation 24 External Rotation 5 Comments tightness of R scar Left Active Flexion w/Knee Flexed 101 Straight Leg Raise 50 Abduction 18 Internal Rotation 17 External Rotation 8 PT-OP-M Strength Start: 02/05/24 16:37 Freq: Status: Active Protocol: Document 03/17/24 10:42 [facility] (Rec: 03/17/24 11:20 [facility] [id number]) Hip Strength Hip Manual Muscle Testing Right Flexion (L2) 3+ Fair+ Abduction 3+ Fair+ External Rotation 4 Good Internal Rotation 4 Good Comments pain w/flex Left Flexion (L2) 4 Good Abduction 4- Good- External Rotation 4 Good Internal Rotation 5 Normal Knee Strength Knee Manual Muscle Testing Right Flexion (S2) 4+ Good+ Extension (L3) 4+ Good+ Left Flexion (S2) 4+ Good+ Extension (L3) 5 Normal Ankle/Foot Strength Ankle and Foot Manual Muscle Testing Right Dorsiflexion (L4) 5 Normal Plantarflexion (S1) 5 Normal Comments PF tested seated Left Comments n/t PT-OP-Q Treatments Start: 02/05/24 16:37 Freq: Status: Active Protocol: Document 03/17/24 10:42 [facility] (Rec: 03/17/24 11:20 [facility] [id number]) Therapeutic Exercises Standing Exercises step up Standing Exercise Name SL repeated- Side right Equipment Used 6 in Reps/Minutes 10 Comments cues knee alignment resisted walk Standing Exercise Name 1. side step 2. fwd/bwk Side bilateral Equipment Used L1 Reps/Minutes 1.20ft ea 2. 2x20ft ea Comments cues posture sit to stand Side bilateral Resistance lvl 1 at knees Equipment Used arms front Reps/Minutes 2x10 Comments cued slower sit full sit to chair Other Exercises isometrics Other Exercise Name B LE MMT Side bilateral Manual Therapy Treatment Consent Patient gave verbal consent for manual Yes treatment Soft Tissue Mobilization R leg Body Location R add Mobilization Type Myofascial Release,Rolling Intensity/Depth Moderate Comments w/abd, ER and flex Joint Mobilizations hip Joint R Inf ; hip on axis ER and IR FM; lat glide for add FM Grade II Neuro Re-Education Treatment Balance Activities foam Comments WBOS & NBOS w/head turns and EC trials staggered stance B trials hurdles Equipment 6 hurdles Comments 1. fwd reciprocal over x4 2. sidestep B x2 PT-OP-T Assessment and Plan Start: 02/05/24 16:37 Freq: Status: Active Protocol: Document 03/17/24 10:42 [facility] (Rec: 03/17/24 11:20 [facility] [id number]) Physical Therapy Assessment Goals activity Short Term Goal (STG) Pt will be able to return to walks of at least .5 mile w/o inc pain w/o AD. 02/27/24: unable at this time due to L foot pain in weight bearing and xray calcaneal spur. 03/12/24: still unable to WB into L ankle well. 03/17-did 15 min and felt okay;L ankle more limitor STG Duration 03/23 slow progression 03/12/24 Premium Note Interest Calculator Clerk Goal (LTG) Pt will be able to return to walks of at least 2 mile w/o inc pain w/o AD. LTG Duration 04/21 mobility [facility] Goal (LTG) Pt will be able to cut toe nails, cross legs, put on socks w/o feeling of loss of mobility 03/12/24: can don socks by putting foot on bed deep knee flexion, very tight unable to cross R leg over L thigh. Initiated R LE garcia taps to start progress range. 03/17-inc ease w/nails, can put on socks; cannot cross R leg still LTG Duration 04/21 slow progression 03/12/24 strength Short Term Goal (STG) Pt will be indep w/HEP 03/17-pt occ compliant w/HEP; attempting to resume standing work again STG Duration 03/18-progression 03/17 Premium Note Interest Calculator Clerk Goal (LTG) Pt will score at least 4+/5 on all LE MMT to show improved strength and stability to allow doing typical daily activities and return to work w/o limitation 03/17-advancing LTG Duration 04/21 LEFS Impairment 26 Short Term Goal (STG) Pt will score at least 45 on LEFS to show improved functional ability. 03/17-limited by ankle 26/80 STG Duration 03/18 Premium Note Interest Calculator Clerk Goal (LTG) Pt will score at least 58 on LEFS to show improved functional ability. LTG Duration 04/21 Assessment Summary Assessment Pt making good progress w/hip strength and noting dec pain w /the numbness feeling. Has had small backtrack w/inc activity d/t l ankle injury separte of R hip pain. Pt would benefit from cont skilled PT to work on hip and leg strenght and balance to return to normal activities. Physical Therapy Plan Frequency and Duration Frequency of Treatment 1-2x/wk Duration of treatment (weeks) 10 Plan of Care Start Date 02/11/24 Plan of Care End Date 04/21/24 Next Visit Focus/Plan Next Note Type Treatment Note Next Visit Plan assess pt response to return to WB actvity; gradually work on balance; manual to improve hip range
--- NOTE | 2024-03-17 12:21 | PT.OPPN ---
Current Diagnoses Unilateral primary osteoarthritis, right hip (03/17/24) Pain in right hip (03/17/24) Encounter for other preprocedural examination (03/17/24) Physical Therapy Progress Note PT-OP-A Visit Information Start: 02/05/24 16:37 Freq: Status: Active Protocol: Document 03/17/24 10:42 [facility] (Rec: 03/17/24 11:20 [facility] [id number]) Out-Patient Physical Therapy Visit Information Visit Information Visit Type Progress Note Visit Note 07/18 Visit Start Time 10:36 Visit Stop Time 11:15 Visit Number 8 Number of LABORER GENERAL Visits 0 PT-OP-B Current Condition Start: 02/05/24 16:37 Freq: Status: Active Protocol: Document 02/11/24 12:30 [facility] (Rec: 02/11/24 15:17 [facility] [id number]) Current Condition History of Current Condition Onset Date December 25 2023 Current Complaints R ant DEIDRA History of Current Condition Pt reports pain and numbness in R thigh since R DEIDRA. Doctor said at about 6 weeks, the numbness starts to heal slowly . Other than that, hip seems ok. She walked up to the football field and sat on it and walked back home and the next day got really nauseas and went to ER and had COVID. Pt reports she is cleared to turn leg to side. Knee was painful prior to sx and after surgery, it has been better and is worried about pushing range to avoid hurting knee. Can't clip toe nails. Pt reports she is cleared to move anyway now. Xrays looked good . chronic hx of B hip pain and R knee pain w/recent R sided pain worsening. OVerall feels like it is healing well. Spent 1 night in hospital. She was given gabapentin but it made her sleepy and it didn't help w/pain. pt reports she recently (about last week) gave up cane/walker. She still sits on a chair in tub. having an easier time getting socks on but does still struggle. Has noticed L achilles limitingher when attempting to go for short walks liek a few blocks. Pt feels weak Treatment Goals Patient/Caregiver Goals be able to move leg to get toenails trimmed/get socks on easier, be able to go for long walks (flat jo ann tompson 4miles); improve RLE flexibility (like cross leg) PT-OP-C Subjective Start: 02/05/24 16:37 Freq: Status: Active Protocol: Document 03/17/24 10:42 [facility] (Rec: 03/17/24 11:20 [facility] [id number]) OP-PT Subjective Patient Comments Patient Comments Pt reports ankle overall doing better but feels like more her foot on sup aspect more painful. PT-OP-D Balance Start: 02/05/24 16:37 Freq: Status: Active Protocol: Document 02/11/24 12:30 [facility] (Rec: 02/11/24 15:17 [facility] [id number]) Balance Tests Single Limb Standing Single Limb- Right 1 sec Single Limb- Left 4 sec PT-OP-G Mobility & Gait Start: 02/05/24 16:37 Freq: Status: Active Protocol: Document 02/11/24 12:30 [facility] (Rec: 02/11/24 15:17 [facility] [id number]) OP Gait Assessment Comments Gait Comments stiff amb, no push off or ext B hips, WBOS, lat leaning PT-OP-K Range of Motion Start: 02/05/24 16:37 Freq: Status: Active Protocol: Document 02/11/24 12:30 [facility] (Rec: 02/11/24 15:17 [facility] [id number]) Hip Goniometric Range of Motion Hip Measured in Degrees Right Active Flexion w/Knee Flexed 80 Straight Leg Raise 49 Abduction 16 Internal Rotation 24 External Rotation 5 Comments tightness of R scar Left Active Flexion w/Knee Flexed 101 Straight Leg Raise 50 Abduction 18 Internal Rotation 17 External Rotation 8 PT-OP-M Strength Start: 02/05/24 16:37 Freq: Status: Active Protocol: Document 03/17/24 10:42 [facility] (Rec: 03/17/24 11:20 [facility] [id number]) Hip Strength Hip Manual Muscle Testing Right Flexion (L2) 3+ Fair+ Abduction 3+ Fair+ External Rotation 4 Good Internal Rotation 4 Good Comments pain w/flex Left Flexion (L2) 4 Good Abduction 4- Good- External Rotation 4 Good Internal Rotation 5 Normal Knee Strength Knee Manual Muscle Testing Right Flexion (S2) 4+ Good+ Extension (L3) 4+ Good+ Left Flexion (S2) 4+ Good+ Extension (L3) 5 Normal Ankle/Foot Strength Ankle and Foot Manual Muscle Testing Right Dorsiflexion (L4) 5 Normal Plantarflexion (S1) 5 Normal Comments PF tested seated Left Comments n/t PT-OP-T Assessment and Plan Start: 02/05/24 16:37 Freq: Status: Active Protocol: Document 03/17/24 10:42 [facility] (Rec: 03/17/24 11:20 [facility] [id number]) Physical Therapy Assessment Goals activity Short Term Goal (STG) Pt will be able to return to walks of at least .5 mile w/o inc pain w/o AD. 02/27/24: unable at this time due to L foot pain in weight bearing and xray calcaneal spur. 03/12/24: still unable to WB into L ankle well. 03/17-did 15 min and felt okay;L ankle more limitor STG Duration 03/23 slow progression 03/12/24 Custodial Goal (LTG) Pt will be able to return to walks of at least 2 mile w/o inc pain w/o AD. LTG Duration 04/21 mobility Matrix Inspector Goal (LTG) Pt will be able to cut toe nails, cross legs, put on socks w/o feeling of loss of mobility 03/12/24: can don socks by putting foot on bed deep knee flexion, very tight unable to cross R leg over L thigh. Initiated R LE garcia taps to start progress range. 03/17-inc ease w/nails, can put on socks; cannot cross R leg still LTG Duration 04/21 slow progression 03/12/24 strength Short Term Goal (STG) Pt will be indep w/HEP 03/17-pt occ compliant w/HEP; attempting to resume standing work again STG Duration 03/18-progression 03/17 Matrix Inspector Goal (LTG) Pt will score at least 4+/5 on all LE MMT to show improved strength and stability to allow doing typical daily activities and return to work w/o limitation 03/17-advancing LTG Duration 04/21 LEFS Impairment 26 Short Term Goal (STG) Pt will score at least 45 on LEFS to show improved functional ability. 03/17-limited by ankle 26/80 STG Duration 03/18 Matrix Inspector Goal (LTG) Pt will score at least 58 on LEFS to show improved functional ability. LTG Duration 10/14 Assessment Summary Assessment Pt making good progress w/hip strength and noting dec pain w /the numbness feeling. Has had small backtrack w/inc activity d/t l ankle injury separte of R hip pain. Pt would benefit from cont skilled PT to work on hip and leg strenght and balance to return to normal activities. Physical Therapy Plan Frequency and Duration Frequency of Treatment 1-2x/wk Duration of treatment (weeks) 10 Plan of Care Start Date 02/11/24 Plan of Care End Date 04/21/24 Next Visit Focus/Plan Next Note Type Treatment Note Next Visit Plan assess pt response to return to WB actvity; gradually work on balance; manual to improve hip range
--- NOTE | 2024-03-19 12:01 | PT.OTN ---
Current Diagnoses Unilateral primary osteoarthritis, right hip (03/19/24) Pain in right hip (03/19/24) Encounter for other preprocedural examination (03/19/24) Physical Therapy Treatment Note PT-OP-A Visit Information Start: 02/05/24 16:37 Freq: Status: Active Protocol: Document 03/19/24 11:20 SP (Rec: 03/19/24 12:11 SP [id number]) Out-Patient Physical Therapy Visit Information Visit Information Visit Type Treatment Note Visit Note 08/18 post PN Visit Start Time 11:20 Visit Stop Time 12:01 Visit Number 9 Number of PLANT ANATOMIST Visits 1 Evaluation Information Evaluation Date 02/11/24 Precautions Precautions December 25 2023: R Ant DEIDRA 02/21/24: L foot pain xray: impression: No acute bony abnormality, Calcaneal spur. PT-OP-B Current Condition Start: 02/05/24 16:37 Freq: Status: Active Protocol: Document 02/11/24 12:30 [facility] (Rec: 02/11/24 15:17 [facility] [id number]) Current Condition History of Current Condition Onset Date December 25 2023 Current Complaints R ant DEIDRA History of Current Condition Pt reports pain and numbness in R thigh since R DEIDRA. Doctor said at about 6 weeks, the numbness starts to heal slowly . Other than that, hip seems ok. She walked up to the football field and sat on it and walked back home and the next day got really nauseas and went to ER and had COVID. Pt reports she is cleared to turn leg to side. Knee was painful prior to sx and after surgery, it has been better and is worried about pushing range to avoid hurting knee. Can't clip toe nails. Pt reports she is cleared to move anyway now. Xrays looked good . chronic hx of B hip pain and R knee pain w/recent R sided pain worsening. OVerall feels like it is healing well. Spent 1 night in hospital. She was given gabapentin but it made her sleepy and it didn't help w/pain. pt reports she recently (about last week) gave up cane/walker. She still sits on a chair in tub. having an easier time getting socks on but does still struggle. Has noticed L achilles limitingher when attempting to go for short walks liek a few blocks. Pt feels weak Treatment Goals Patient/Caregiver Goals be able to move leg to get toenails trimmed/get socks on easier, be able to go for long walks (flat [place] 4miles); improve RLE flexibility (like cross leg) PT-OP-C Subjective Start: 02/05/24 16:37 Freq: Status: Active Protocol: Document 03/19/24 11:20 SP (Rec: 03/19/24 12:11 SP [id number]) OP-PT Subjective Patient Comments Patient Comments Pt reports her L ankle was ok after last tx but the next day was really sore and had hard time walking, just feeling better today with almost no limp as was on Sunday. Pt reports is returning to work soon. PT-OP-D Balance Start: 02/05/24 16:37 Freq: Status: Active Protocol: Document 02/11/24 12:30 [facility] (Rec: 02/11/24 15:17 [facility] [id number]) Balance Tests Single Limb Standing Single Limb- Right 1 sec Single Limb- Left 4 sec PT-OP-G Mobility & Gait Start: 02/05/24 16:37 Freq: Status: Active Protocol: Document 02/11/24 12:30 [facility] (Rec: 02/11/24 15:17 [facility] [id number]) OP Gait Assessment Comments Gait Comments stiff amb, no push off or ext B hips, WBOS, lat leaning PT-OP-K Range of Motion Start: 02/05/24 16:37 Freq: Status: Active Protocol: Document 02/11/24 12:30 [facility] (Rec: 02/11/24 15:17 [facility] [id number]) Hip Goniometric Range of Motion Hip Right Active Flexion w/Knee Flexed 80 Straight Leg Raise 49 Abduction 16 Internal Rotation 24 External Rotation 5 Comments tightness of R scar Left Active Flexion w/Knee Flexed 101 Straight Leg Raise 50 Abduction 18 Internal Rotation 17 External Rotation 8 PT-OP-M Strength Start: 02/05/24 16:37 Freq: Status: Active Protocol: Document 03/17/24 10:42 [facility] (Rec: 03/17/24 11:20 [facility] [id number]) Hip Strength Hip Manual Muscle Testing Right Flexion (L2) 3+ Fair+ Abduction 3+ Fair+ External Rotation 4 Good Internal Rotation 4 Good Comments pain w/flex Left Flexion (L2) 4 Good Abduction 4- Good- External Rotation 4 Good Internal Rotation 5 Normal Knee Strength Knee Manual Muscle Testing Right Flexion (S2) 4+ Good+ Extension (L3) 4+ Good+ Left Flexion (S2) 4+ Good+ Extension (L3) 5 Normal Ankle/Foot Strength Ankle and Foot Manual Muscle Testing Right Dorsiflexion (L4) 5 Normal Plantarflexion (S1) 5 Normal Comments PF tested seated Left Comments n/t PT-OP-Q Treatments Start: 02/05/24 16:37 Freq: Status: Active Protocol: Document 03/19/24 11:20 SP (Rec: 03/19/24 12:11 SP [id number]) Therapeutic Exercises Sitting Exercises LAQ Sitting Exercise Name REveiewed HEP Side right Resistance Tband 1 at R ankle/under L foot Reps/Minutes x15 reps each Comments good form Standing Exercises step up Standing Exercise Name SL repeated- Side right Equipment Used 6 in, near rail Reps/Minutes 10 Comments cues knee alignment & TKE resisted walk Standing Exercise Name 1. side step 2. fwd/bwk Side bilateral Resistance L1 looped at shins Reps/Minutes 15 ft 2laps each direction Comments cues posture sit to stand Side bilateral Resistance lvl 1 at thighs Equipment Used arms front Reps/Minutes 2x10 Comments cued slower descend sit full sit to chair Manual Therapy Treatment Soft Tissue Mobilization R leg Body Location R adductor: longus, pectineus, brevus, Piriformis Mobilization Type Instrument Assisted,Myofascial Release,Rolling,Other Intensity/Depth Moderate Comments hooklying & L SL: STMs, MWM FM w/hip IR/ ER, trialed use rolling to adductor with ed for self carryover application seated home. Neuro Re-Education Treatment Balance Activities STS Equipment mesh chair & foam under feet Reps/Duration x8 reps Comments cued hip hinge slower descend last 1 foam Equipment foam cushion Comments stride stance w/head turns- no challenge but states does at times feel little dizzy so limited reps, will trial EC again future tx. PT-OP-T Assessment and Plan Start: 02/05/24 16:37 Freq: Status: Active Protocol: Document 03/19/24 11:20 SP (Rec: 03/19/24 12:11 SP [id number]) Physical Therapy Assessment Goals activity Short Term Goal (STG) Pt will be able to return to walks of at least .5 mile w/o inc pain w/o AD. 02/27/24: unable at this time due to L foot pain in weight bearing and xray calcaneal spur. 03/12/24: still unable to WB into L ankle well. 03/17-did 15 min and felt okay;L ankle more limitor STG Duration 03/23 slow progression 03/12/24 Air Purifier Servicer Goal (LTG) Pt will be able to return to walks of at least 2 mile w/o inc pain w/o AD. LTG Duration 04/21 mobility Assisted Goal (LTG) Pt will be able to cut toe nails, cross legs, put on socks w/o feeling of loss of mobility 03/12/24: can don socks by putting foot on bed deep knee flexion, very tight unable to cross R leg over L thigh. Initiated R LE garcia taps to start progress range. 03/17-inc ease w/nails, can put on socks; cannot cross R leg still LTG Duration 04/21 slow progression 03/12/24 strength Short Term Goal (STG) Pt will be indep w/HEP 03/17-pt occ compliant w/HEP; attempting to resume standing work again STG Duration 03/18-progression 03/17 Air Purifier Servicer Goal (LTG) Pt will score at least 4+/5 on all LE MMT to show improved strength and stability to allow doing typical daily activities and return to work w/o limitation 03/17-advancing LTG Duration 04/21 LEFS Impairment 26 Short Term Goal (STG) Pt will score at least 45 on LEFS to show improved functional ability. 03/17-limited by ankle 26/80 STG Duration 03/18 Assisted Goal (LTG) Pt will score at least 58 on LEFS to show improved functional ability. LTG Duration 04/21 Assessment Summary Assessment Pt reports decreased R hip tension post manual. GOod feedback muscle tiring no pain in R hip during resisted ther ex. Cues for knee alighnment during step ups. Encouraged return to standing HEP, eg resisted stepping as in PT past 2 tx for HEP to progress strengthen when not in PT if R hip and L ankle feel well that day. Physical Therapy Plan Frequency and Duration Frequency of Treatment 1-2x/wk Duration of treatment (weeks) 10 Plan of Care Start Date 02/11/24 Plan of Care End Date 04/21/24 Therapeutic Interventions Therapeutic Interventions Balance Training,Gait Training ,Home Exercise Program,Joint Mobilizations,Manual Therapy, Neuromuscular Re-education, Orthotic/Prosthetic Management ,Patient/Caregiver Education, Self-Care/Home Management,Soft Tissue Mobilization,Taping, Therapeutic Activities, Therapeutic Exercises Modalities Cold Pack/Ice Massage,Electric Stimulation,Hot Packs Next Visit Focus/Plan Next Note Type Treatment Note Next Visit Plan assess pt response to return to WB actvity; gradually work on balance; manual to improve hip range
--- NOTE | 2024-03-26 16:08 | PT.OTN ---
Current Diagnoses Unilateral primary osteoarthritis, right hip (03/26/24) Pain in right hip (03/26/24) Encounter for other preprocedural examination (03/26/24) Physical Therapy Treatment Note PT-OP-A Visit Information Start: 02/05/24 16:37 Freq: Status: Active Protocol: Document 03/26/24 15:28 [facility] (Rec: 03/26/24 16:08 [facility] [id number]) Out-Patient Physical Therapy Visit Information Visit Information Visit Type Treatment Note Visit Note 09/15 post PN ORDNANCE TECHNICIAN Domonique started w/pt per therapist direction & PT did majority of treatment Visit Start Time 15:17 Visit Stop Time 15:57 Visit Number 10 Number of ORDNANCE TECHNICIAN Visits 0 PT-OP-B Current Condition Start: 02/05/24 16:37 Freq: Status: Active Protocol: Document 02/11/24 12:30 [facility] (Rec: 02/11/24 15:17 [facility] [id number]) Current Condition History of Current Condition Onset Date December 25 2023 Current Complaints R ant DEIDRA History of Current Condition Pt reports pain and numbness in R thigh since R DEIDRA. Doctor said at about 6 weeks, the numbness starts to heal slowly . Other than that, hip seems ok. She walked up to the football field and sat on it and walked back home and the next day got really nauseas and went to ER and had COVID. Pt reports she is cleared to turn leg to side. Knee was painful prior to sx and after surgery, it has been better and is worried about pushing range to avoid hurting knee. Can't clip toe nails. Pt reports she is cleared to move anyway now. Xrays looked good . chronic hx of B hip pain and R knee pain w/recent R sided pain worsening. OVerall feels like it is healing well. Spent 1 night in hospital. She was given gabapentin but it made her sleepy and it didn't help w/pain. pt reports she recently (about last week) gave up cane/walker. She still sits on a chair in tub. having an easier time getting socks on but does still struggle. Has noticed L achilles limitingher when attempting to go for short walks liek a few blocks. Pt feels weak Treatment Goals Patient/Caregiver Goals be able to move leg to get toenails trimmed/get socks on easier, be able to go for long walks (flat [place] 4miles); improve RLE flexibility (like cross leg) PT-OP-C Subjective Start: 02/05/24 16:37 Freq: Status: Active Protocol: Document 03/26/24 15:28 [facility] ([facility]26/24 16[id number] Subjective Patient Comments Patient Comments Started work sunday and it went okay besides being tired, tues ankle hurt a little and sore in L ankle today and tender in R. not scheduled for podiatry til Nov PT-OP-D Balance Start: 02/05/24 16:37 Freq: Status: Active Protocol: Document 02/11/24 12:30 [facility] (Rec: 02/11/24 15:17 [id number] Balance Tests Single Limb Standing Single Limb- Right 1 sec Single Limb- Left 4 sec PT-OP-G Mobility & Gait Start: 02/05/24 16:37 Freq: Status: Active Protocol: Document 02/11/24 12:30 [facility] (Rec: 02/11/24 15:17 [id number] OP Gait Assessment Comments Gait Comments stiff amb, no push off or ext B hips, WBOS, lat leaning PT-OP-K Range of Motion Start: 02/05/24 16:37 Freq: Status: Active Protocol: Document 02/11/24 12:30 [facility] (Rec: 02/11/24 15:17 [facility] [id number]) Hip Goniometric Range of Motion Hip Right Active Flexion w/Knee Flexed 80 Straight Leg Raise 49 Abduction 16 Internal Rotation 24 External Rotation 5 Comments tightness of R scar Left Active Flexion w/Knee Flexed 101 Straight Leg Raise 50 Abduction 18 Internal Rotation 17 External Rotation 8 PT-OP-M Strength Start: 02/05/24 16:37 Freq: Status: Active Protocol: Document 03/17/24 10:42 [facility] (Rec: 03/17/24 11:20 [facility] [id number]) Hip Strength Hip Manual Muscle Testing Right Flexion (L2) 3+ Fair+ Abduction 3+ Fair+ External Rotation 4 Good Internal Rotation 4 Good Comments pain w/flex Left Flexion (L2) 4 Good Abduction 4- Good- External Rotation 4 Good Internal Rotation 5 Normal Knee Strength Knee Manual Muscle Testing Right Flexion (S2) 4+ Good+ Extension (L3) 4+ Good+ Left Flexion (S2) 4+ Good+ Extension (L3) 5 Normal Ankle/Foot Strength Ankle and Foot Manual Muscle Testing Right Dorsiflexion (L4) 5 Normal Plantarflexion (S1) 5 Normal Comments PF tested seated Left Comments n/t PT-OP-Q Treatments Start: 02/05/24 16:37 Freq: Status: Active Protocol: Document 03/26/24 15:28 [facility] (Rec: 03/26/24 16:08 [facility] [id number]) Gym Equipment Shuttle Recovery Unilateral Squats Resistance 37# (nav[employer]) Shuttle Recovery Platform Stable Reps/Time 2x15 Therapeutic Exercises Supine Exercises Single KFO Side bilateral Equipment Used L2 Reps/Minutes 2x20 hip abduction Side bilateral Reps/Minutes 10 ea heel slide Side right Reps/Minutes 15 Sitting Exercises stretch Sitting Exercise Name HS, adductor Side bilateral Reps/Minutes 45 sec ea Comments cues to add to wrk routine Standing Exercises step up Standing Exercise Name SL repeated- Side right Equipment Used 6 in, near rail Reps/Minutes 10 Comments cues knee alignment & TKE Manual Therapy Treatment Consent Patient gave verbal consent for manual Yes treatment Soft Tissue Mobilization HS Body Location R HS Mobilization Type Rolling Intensity/Depth Moderate R leg Body Location R add, hip flexor Mobilization Type Rolling,Sustained Pressure Intensity/Depth Moderate Joint Mobilizations hip Joint R inf and lat Grade II PT-OP-T Assessment and Plan Start: 02/05/24 16:37 Freq: Status: Active Protocol: Document 03/26/24 15:28 [facility] (Rec: 03/26/24 16:08 [facility] [id number]) Physical Therapy Assessment Goals activity Short Term Goal (STG) Pt will be able to return to walks of at least .5 mile w/o inc pain w/o AD. 02/27/24: unable at this time due to L foot pain in weight bearing and xray calcaneal spur. 03/12/24: still unable to WB into L ankle well. 03/17-did 15 min and felt okay;L ankle more limitor STG Duration 03/23 slow progression 03/12/24 Snf Goal (LTG) Pt will be able to return to walks of at least 2 mile w/o inc pain w/o AD. LTG Duration 04/21 mobility Stable Attendant Goal (LTG) Pt will be able to cut toe nails, cross legs, put on socks w/o feeling of loss of mobility 03/12/24: can don socks by putting foot on bed deep knee flexion, very tight unable to cross R leg over L thigh. Initiated R LE garcia taps to start progress range. 03/17-inc ease w/nails, can put on socks; cannot cross R leg still LTG Duration 04/21 slow progression 03/12/24 strength Short Term Goal (STG) Pt will be indep w/HEP 03/17-pt occ compliant w/HEP; attempting to resume standing work again STG Duration 03/18-progression 03/17 Snf Goal (LTG) Pt will score at least 4+/5 on all LE MMT to show improved strength and stability to allow doing typical daily activities and return to work w/o limitation 03/17-advancing LTG Duration 04/21 LEFS Impairment 26 Short Term Goal (STG) Pt will score at least 45 on LEFS to show improved functional ability. 03/17-limited by ankle STG Duration 03/18 Stable Attendant Goal (LTG) Pt will score at least 58 on LEFS to show improved functional ability. LTG Duration 04/21 Assessment Summary Assessment Pt encouraged to follow up w/ primary re: ankle pain and consider asking for referral to PT for L ankle and R hip from her. Cont cues needed w/ exercises. Physical Therapy Plan Frequency and Duration Frequency of Treatment 1-2x/wk Duration of treatment (weeks) 10 Plan of Care Start Date 02/11/24 Plan of Care End Date 04/21/24 Next Visit Focus/Plan Next Note Type Treatment Note Next Visit Plan Try to work on RLE WB activity but avoid LLE; gradually work on balance; manual to improve hip range
--- NOTE | 2024-03-31 17:52 | PT.OTN ---
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 Doctor said at about 6 weeks, the numbness starts to heal slowly . Other than that, hip seems ok. She walked up to the football field and sat on it and walked back home and the next day got really nauseas and went to ER and had COVID. Pt reports she is cleared to turn leg to side. Knee was painful prior to sx and after surgery, it has been better and is worried about pushing range to avoid hurting knee. Can't clip toe nails. Pt reports she is cleared to move anyway now. Xrays looked good . chronic hx of B hip pain and R knee pain w/recent R sided pain worsening. OVerall feels like it is healing well. Spent 1 night in hospital. She was given gabapentin but it made her sleepy and it didn't help w/pain. pt reports she recently (about last week) gave up cane/walker. She still sits on a chair in tub. having an easier time getting socks on but does still struggle. Has noticed L achilles limitingher when attempting to go for short walks liek a few blocks. Pt feels weak Treatment Goals Patient/Caregiver Goals be able to move leg to get toenails trimmed/get socks on easier, be able to go for long walks (flat jo ann tompson 4miles); improve RLE flexibility (like cross leg) PT-OP-C Subjective Start: 02/05/24 16:37 Freq: Status: Active Protocol: Document 03/31/24 15:21 [facility] (Rec: 03/31/24 17:52 [facility] [id number]) OP-PT Subjective Patient Comments Patient Comments Pt reports she did okay w/the exercises last time. Sees primary on to talk about L foot/ankle pain PT-OP-D Balance Start: 02/05/24 16:37 Freq: Status: Active Protocol: Document 02/11/24 12:30 [facility] (Rec: 02/11/24 15:17 [facility] [id number]) Balance Tests Single Limb Standing Single Limb- Right 1 sec Single Limb- Left 4 sec PT-OP-G Mobility & Gait Start: 02/05/24 16:37 Freq: Status: Active Protocol: Document 02/11/24 12:30 [facility] (Rec: 02/11/24 15:17 [facility] [id number]) OP Gait Assessment Comments Gait Comments stiff amb, no push off or ext B hips, WBOS, lat leaning PT-OP-K Range of Motion Start: 02/05/24 16:37 Freq: Status: Active Protocol: Document 02/11/24 12:30 [facility] (Rec: 02/11/24 15:17 [facility] [id number]) Hip Goniometric Range of Motion Hip Right Active Flexion w/Knee Flexed 80 Straight Leg Raise 49 Abduction 16 Internal Rotation 24 External Rotation 5 Comments tightness of R scar Left Active Flexion w/Knee Flexed 101 Straight Leg Raise 50 Abduction 18 Internal Rotation 17 External Rotation 8 PT-OP-M Strength Start: 02/05/24 16:37 Freq: Status: Active Protocol: Document 03/17/24 10:42 [facility] (Rec: 03/17/24 11:20 [facility] [id number]) Hip Strength Hip Manual Muscle Testing Right Flexion (L2) 3+ Fair+ Abduction 3+ Fair+ External Rotation 4 Good Internal Rotation 4 Good Comments pain w/flex Left Flexion (L2) 4 Good Abduction 4- Good- External Rotation 4 Good Internal Rotation 5 Normal Knee Strength Knee Manual Muscle Testing Right Flexion (S2) 4+ Good+ Extension (L3) 4+ Good+ Left Flexion (S2) 4+ Good+ Extension (L3) 5 Normal Ankle/Foot Strength Ankle and Foot Manual Muscle Testing Right Dorsiflexion (L4) 5 Normal Plantarflexion (S1) 5 Normal Comments PF tested seated Left Comments n/t PT-OP-Q Treatments Start: 02/05/24 16:37 Freq: Status: Active Protocol: Document 03/31/24 15:21 [facility] (Rec: 03/31/24 17:52 [facility] [id number]) Therapeutic Exercises Supine Exercises bridge Supine Exercise Name SL R Reps/Minutes 15 Sidelying Exercises reverse clamshells Side right Resistance L1 Reps/Minutes 15 Comments cues control down clamshell Side right Reps/Minutes 2x10 Comments slower eccentric control cues and for no rolling hip abduction Side right Resistance AROM Reps/Minutes 2x10 Comments cues for leg alignment Standing Exercises step down Side right Equipment Used 4 in step Reps/Minutes 10 Comments cues knee position step up Standing Exercise Name SL repeated: 1. fwd 2. lat Side right Equipment Used 6 in, near rail Reps/Minutes 15 ea Comments cues knee alignment & TKE sit to stand Side bilateral Resistance lvl 1 at thighs Equipment Used arms front Reps/Minutes x15 Comments cued slower descend sit full sit to chair Manual Therapy Treatment Consent Patient gave verbal consent for manual Yes treatment Soft Tissue Mobilization hip flexor Body Location R Mobilization Type Sustained Pressure Intensity/Depth Moderate Body Position Supine Comments w/hip flex R leg Body Location R add, ITB Mobilization Type Rolling,Sustained Pressure Intensity/Depth Moderate Comments w/hip flex and hip add Joint Mobilizations hip Comments R inf FM w/c/r; R IR free the ball FM c/r PT-OP-T Assessment and Plan Start: 02/05/24 16:37 Freq: Status: Active Protocol: Document 03/31/24 15:21 [facility] (Rec: 03/31/24 17:52 [facility] [id number]) Physical Therapy Assessment Goals activity Short Term Goal (STG) Pt will be able to return to walks of at least .5 mile w/o inc pain w/o AD. 02/27/24: unable at this time due to L foot pain in weight bearing and xray calcaneal spur. 03/12/24: still unable to WB into L ankle well. 03/17-did 15 min and felt okay;L ankle more limitor STG Duration 03/23 slow progression 03/12/24 Typewriter Tester Goal (LTG) Pt will be able to return to walks of at least 2 mile w/o inc pain w/o AD. LTG Duration 04/21 mobility Typewriter Tester Goal (LTG) Pt will be able to cut toe nails, cross legs, put on socks w/o feeling of loss of mobility 03/12/24: can don socks by putting foot on bed deep knee flexion, very tight unable to cross R leg over L thigh. Initiated R LE garcia taps to start progress range. 03/17-inc ease w/nails, can put on socks; cannot cross R leg still LTG Duration 04/21 slow progression 03/12/24 strength Short Term Goal (STG) Pt will be indep w/HEP 03/17-pt occ compliant w/HEP; attempting to resume standing work again STG Duration 03/18-progression 03/17 Jail Goal (LTG) Pt will score at least 4+/5 on all LE MMT to show improved strength and stability to allow doing typical daily activities and return to work w/o limitation 03/17-advancing LTG Duration 04/21 LEFS Impairment 26 Short Term Goal (STG) Pt will score at least 45 on LEFS to show improved functional ability. 03/17-limited by ankle 26/80 STG Duration 03/18 Typewriter Tester Goal (LTG) Pt will score at least 58 on LEFS to show improved functional ability. LTG Duration 04/21 Assessment Summary Assessment Improved performance w/step ups but does require cues for knee position. Notes some knee discomfort w/step downs and requires cues for knee position. Physical Therapy Plan Frequency and Duration Frequency of Treatment 1-2x/wk Duration of treatment (weeks) 10 Plan of Care Start Date 02/11/24 Plan of Care End Date 04/21/24 Next Visit Focus/Plan Next Note Type Treatment Note Next Visit Plan Try to work on RLE WB activity but avoid LLE; gradually work on balance; manual to improve hip range
--- NOTE | 2024-04-02 17:14 | PT.OTN ---
Current Diagnoses Unilateral primary osteoarthritis, right hip (04/02/24) Pain in right hip (04/02/24) Encounter for other preprocedural examination (04/02/24) Physical Therapy Treatment Note PT-OP-A Visit Information Start: 02/05/24 16:37 Freq: Status: Active Protocol: Document 04/02/24 15:21 [facility] (Rec: 04/02/24 17:14 [facility] [id number]) Out-Patient Physical Therapy Visit Information Visit Information Visit Type Treatment Note Visit Note 11/15 post PN Visit Start Time 15:20 Visit Stop Time 16:00 Visit Number 12 Number of [employer] [facility] [employer] Visits 0 PT-OP-B Current Condition Start: 02/05/24 16:37 Freq: Status: Active Protocol: Document 02/11/24 12:30 [facility] (Rec: 02/11/24 15:17 [facility] [id number]) Current Condition History of Current Condition Onset Date December 25 2023 Current Complaints R ant DEIDRA History of Current Condition Pt reports pain and numbness in R thigh since R DEIDRA. Doctor said at about 6 weeks, the numbness starts to heal slowly . Other than that, hip seems ok. She walked up to the football field and sat on it and walked back home and the next day got really nauseas and went to ER and had COVID. Pt reports she is cleared to turn leg to side. Knee was painful prior to sx and after surgery, it has been better and is worried about pushing range to avoid hurting knee. Can't clip toe nails. Pt reports she is cleared to move anyway now. Xrays looked good . chronic hx of B hip pain and R knee pain w/recent R sided pain worsening. OVerall feels like it is healing well. Spent 1 night in hospital. She was given gabapentin but it made her sleepy and it didn't help w/pain. pt reports she recently (about last week) gave up cane/walker. She still sits on a chair in tub. having an easier time getting socks on but does still struggle. Has noticed L achilles limitingher when attempting to go for short walks liek a few blocks. Pt feels weak Treatment Goals Patient/Caregiver Goals be able to move leg to get toenails trimmed/get socks on easier, be able to go for long walks (flat [place] 4miles); improve RLE flexibility (like cross leg) PT-OP-C Subjective Start: 02/05/24 16:37 Freq: Status: Active Protocol: Document 04/02/24 15:21 [facility] (Rec: 04/02/24 17:14 [facility] [id number]) OP-PT Subjective Patient Comments Patient Comments Pt reports sees primary tomorrow. R thigh has been sore like mm worked PT-OP-D Balance Start: 02/05/24 16:37 Freq: Status: Active Protocol: Document 02/11/24 12:30 [facility] (Rec: 02/11/24 15:17 [facility] [id number]) Balance Tests Single Limb Standing Single Limb- Right 1 sec Single Limb- Left 4 sec PT-OP-G Mobility & Gait Start: 02/05/24 16:37 Freq: Status: Active Protocol: Document 02/11/24 12:30 [facility] (Rec: 02/11/24 15:17 [facility] [id number]) OP Gait Assessment Comments Gait Comments stiff amb, no push off or ext B hips, WBOS, lat leaning PT-OP-K Range of Motion Start: 02/05/24 16:37 Freq: Status: Active Protocol: Document 02/11/24 12:30 [facility] (Rec: 02/11/24 15:17 [facility] [id number]) Hip Goniometric Range of Motion Hip Right Active Flexion w/Knee Flexed 80 Straight Leg Raise 49 Abduction 16 Internal Rotation 24 External Rotation 5 Comments tightness of R scar Left Active Flexion w/Knee Flexed 101 Straight Leg Raise 50 Abduction 18 Internal Rotation 17 External Rotation 8 PT-OP-M Strength Start: 02/05/24 16:37 Freq: Status: Active Protocol: Document 03/17/24 10:42 [facility] (Rec: 03/17/24 11:20 [facility] [id number]) Hip Strength Hip Manual Muscle Testing Right Flexion (L2) 3+ Fair+ Abduction 3+ Fair+ External Rotation 4 Good Internal Rotation 4 Good Comments pain w/flex Left Flexion (L2) 4 Good Abduction 4- Good- External Rotation 4 Good Internal Rotation 5 Normal Knee Strength Knee Manual Muscle Testing Right Flexion (S2) 4+ Good+ Extension (L3) 4+ Good+ Left Flexion (S2) 4+ Good+ Extension (L3) 5 Normal Ankle/Foot Strength Ankle and Foot Manual Muscle Testing Right Dorsiflexion (L4) 5 Normal Plantarflexion (S1) 5 Normal Comments PF tested seated Left Comments n/t PT-OP-Q Treatments Start: 02/05/24 16:37 Freq: Status: Active Protocol: Document 04/02/24 15:21 [facility] (Rec: 04/02/24 17:14 [facility] [id number]) Gym Equipment Shuttle Balance Red Comments Fwd & side: WBOS balance fwd: NBOS and staggered stance B Therapeutic Exercises Supine Exercises stretch Supine Exercise Name 1. HS 2. add 3. ITB Side right Equipment Used strap Reps/Minutes 45 sec ea Standing Exercises squat Standing Exercise Name over chair Side bilateral Reps/Minutes 15 Comments cues as deep as can step up Standing Exercise Name 1. 8 in fwd & back 2.sidestep 6 in Side right Reps/Minutes 12 ea Comments cues full knee ext resisted walk Standing Exercise Name 1. side step 2. fwd/bwk Side bilateral Resistance L1 looped at shins Reps/Minutes 20 ft 2laps each direction Comments cues posture Manual Therapy Treatment Consent Patient gave verbal consent for manual Yes treatment Soft Tissue Mobilization R leg Body Location R add, ITB & lat glute Mobilization Type Rolling,Sustained Pressure Intensity/Depth Moderate Comments w/hip ER and abd Joint Mobilizations hip Comments R inf med c/r Self-Care/Home Management Treatment Activities Self-Care/Home Management Activities 7 min edu and re tie of pt shoes for less compression at midfoot PT-OP-T Assessment and Plan Start: 02/05/24 16:37 Freq: Status: Active Protocol: Document 04/02/24 15:21 [facility] (Rec: 04/02/24 17:14 [facility] [id number]) Physical Therapy Assessment Goals activity Short Term Goal (STG) Pt will be able to return to walks of at least .5 mile w/o inc pain w/o AD. 02/27/24: unable at this time due to L foot pain in weight bearing and xray calcaneal spur. 03/12/24: still unable to WB into L ankle well. 03/17-did 15 min and felt okay;L ankle more limitor STG Duration 03/23 slow progression 03/12/24 [facility] Goal (LTG) Pt will be able to return to walks of at least 2 mile w/o inc pain w/o AD. LTG Duration 04/21 mobility [facility] Goal (LTG) Pt will be able to cut toe nails, cross legs, put on socks w/o feeling of loss of mobility 03/12/24: can don socks by putting foot on bed deep knee flexion, very tight unable to cross R leg over L thigh. Initiated R LE garcia taps to start progress range. 03/17-inc ease w/nails, can put on socks; cannot cross R leg still LTG Duration 04/21 slow progression 03/12/24 strength Short Term Goal (STG) Pt will be indep w/HEP 03/17-pt occ compliant w/HEP; attempting to resume standing work again STG Duration 03/18-progression 03/17 [facility] Goal (LTG) Pt will score at least 4+/5 on all LE MMT to show improved strength and stability to allow doing typical daily activities and return to work w/o limitation 03/17-advancing LTG Duration 04/21 LEFS Impairment 26 Short Term Goal (STG) Pt will score at least 45 on LEFS to show improved functional ability. 03/17-limited by ankle STG Duration 03/18 [facility] Goal (LTG) Pt will score at least 58 on LEFS to show improved functional ability. LTG Duration 04/21 Assessment Summary Assessment Pt did well with balance but did start to notice some L ankle pain. She did well with strengthening w/o c/o pain. Improving w/manual hip abd Physical Therapy Plan Frequency and Duration Frequency of Treatment 1-2x/wk Duration of treatment (weeks) 10 Plan of Care Start Date 02/11/24 Plan of Care End Date 04/21/24 Next Visit Focus/Plan Next Note Type Treatment Note Next Visit Plan work on standing strength and functional strength; gradually work on balance; manual to improve hip range
--- NOTE | 2024-04-07 16:03 | PT.OTN ---
Current Diagnoses Unilateral primary osteoarthritis, right hip (04/07/24) Pain in right hip (04/07/24) Encounter for other preprocedural examination (04/07/24) Physical Therapy Treatment Note PT-OP-A Visit Information Start: 02/05/24 16:37 Freq: Status: Active Protocol: Document 04/07/24 15:24 [facility] (Rec: 04/07/24 16:53 [facility] [id number]) Out-Patient Physical Therapy Visit Information Visit Information Visit Type Progress Note Visit Note 07/18 Visit Start Time 15:24 Visit Stop Time 16:02 Visit Number 13 Number of [employer] Visits 0 PT-OP-B Current Condition Start: 02/05/24 16:37 Freq: Status: Active Protocol: Document 02/11/24 12:30 [facility] (Rec: 02/11/24 15:17 [facility] [id number]) Current Condition History of Current Condition Onset Date December 25 2023 Current Complaints R ant DEIDRA History of Current Condition Pt reports pain and numbness in R thigh since R DEIDRA. Doctor said at about 6 weeks, the numbness starts to heal slowly . Other than that, hip seems ok. She walked up to the football field and sat on it and walked back home and the next day got really nauseas and went to ER and had COVID. Pt reports she is cleared to turn leg to side. Knee was painful prior to sx and after surgery, it has been better and is worried about pushing range to avoid hurting knee. Can't clip toe nails. Pt reports she is cleared to move anyway now. Xrays looked good . chronic hx of B hip pain and R knee pain w/recent R sided pain worsening. OVerall feels like it is healing well. Spent 1 night in hospital. She was given gabapentin but it made her sleepy and it didn't help w/pain. pt reports she recently (about last week) gave up cane/walker. She still sits on a chair in tub. having an easier time getting socks on but does still struggle. Has noticed L achilles limitingher when attempting to go for short walks liek a few blocks. Pt feels weak Treatment Goals Patient/Caregiver Goals be able to move leg to get toenails trimmed/get socks on easier, be able to go for long walks (flat [place] 4miles); improve RLE flexibility (like cross leg) PT-OP-C Subjective Start: 02/05/24 16:37 Freq: Status: Active Protocol: Document 04/07/24 15:24 [facility] (Rec: 04/07/24 16:53 [facility] [id number]) OP-PT Subjective Patient Comments Patient Comments After last time, pain in sup L foot. Sat drove up to [facility]. Had to walk up an incline and ankle was okay but R groin was sore. It is already a little better. PT-OP-D Balance Start: 02/05/24 16:37 Freq: Status: Active Protocol: Document 02/11/24 12:30 [facility] (Rec: 02/11/24 15:17 [facility] [id number]) Balance Tests Single Limb Standing Single Limb- Right 1 sec Single Limb- Left 4 sec PT-OP-G Mobility & Gait Start: 02/05/24 16:37 Freq: Status: Active Protocol: Document 02/11/24 12:30 [facility] (Rec: 02/11/24 15:17 [facility] [id number]) OP Gait Assessment Comments Gait Comments stiff amb, no push off or ext B hips, WBOS, lat leaning PT-OP-K Range of Motion Start: 02/05/24 16:37 Freq: Status: Active Protocol: Document 02/11/24 12:30 [facility] (Rec: 02/11/24 15:17 [facility] [id number]) Hip Goniometric Range of Motion Hip Right Active Flexion w/Knee Flexed 80 Straight Leg Raise 49 Abduction 16 Internal Rotation 24 External Rotation 5 Comments tightness of R scar Left Active Flexion w/Knee Flexed 101 Straight Leg Raise 50 Abduction 18 Internal Rotation 17 External Rotation 8 PT-OP-M Strength Start: 02/05/24 16:37 Freq: Status: Active Protocol: Document 04/07/24 15:24 [facility] (Rec: 04/07/24 16:53 [facility] [id number]) Hip Strength Hip Manual Muscle Testing Right Flexion (L2) 4- Good- Abduction 3+ Fair+ External Rotation 4- Good- Internal Rotation 4 Good Comments pain w/flex & ER Left Flexion (L2) 4 Good Abduction 4 Good External Rotation 4 Good Internal Rotation 5 Normal Knee Strength Knee Manual Muscle Testing Right Flexion (S2) 5 Normal Extension (L3) 5 Normal Left Flexion (S2) 5 Normal Extension (L3) 5 Normal Ankle/Foot Strength Ankle and Foot Manual Muscle Testing Right Dorsiflexion (L4) 5 Normal Plantarflexion (S1) 5 Normal Comments PF tested seated Left Comments n/t PT-OP-Q Treatments Start: 02/05/24 16:37 Freq: Status: Active Protocol: Document 04/07/24 15:24 [facility] (Rec: 04/07/24 16:53 [facility] [id number]) Therapeutic Exercises Sitting Exercises self release Sitting Exercise Name rolling pin Side right Reps/Minutes 2 min Standing Exercises squat Standing Exercise Name over chair Side bilateral Reps/Minutes 15 Comments cues as deep as can step up Standing Exercise Name 1. 8 in fwd & back 2.sidestep 6 in Side right Reps/Minutes 12 ea Comments cues full knee ext resisted walk Standing Exercise Name 1. side step 2. fwd/bwk Side bilateral Resistance L1 looped at shins Reps/Minutes 15laps each direction Comments cues posture Other Exercises isometrics Other Exercise Name B LE MMT Side bilateral Manual Therapy Treatment Consent Patient gave verbal consent for manual Yes treatment Soft Tissue Mobilization hip flexor Body Location R iliacus and TFL Mobilization Type Sustained Pressure Intensity/Depth Moderate Body Position Supine Comments w/hip flex HS Body Location R HS Mobilization Type Rolling Intensity/Depth Moderate R leg Body Location R add, ITB & lat glute Mobilization Type Rolling,Sustained Pressure Intensity/Depth Moderate Comments w/hip ER /IR Joint Mobilizations hip Comments R inf c/r; R free the ball IR c/r PT-OP-T Assessment and Plan Start: 02/05/24 16:37 Freq: Status: Active Protocol: Document 04/07/24 15:24 [facility] (Rec: 04/07/24 16:53 [facility] [id number]) Physical Therapy Assessment Goals activity Short Term Goal (STG) Pt will be able to return to walks of at least .5 mile w/o inc pain w/o AD. 02/27/24: unable at this time due to L foot pain in weight bearing and xray calcaneal spur. 03/12/24: still unable to WB into L ankle well. 03/17-did 15 min and felt okay;L ankle more limitor 04/07 -has been inc but not counting how far STG Duration 04/22 slow progression 03/12/24 Senior Living Goal (LTG) Pt will be able to return to walks of at least 2 mile w/o inc pain w/o AD. LTG Duration 06/02 mobility Senior Living Goal (LTG) Pt will be able to cut toe nails, cross legs, put on socks w/o feeling of loss of mobility 03/12/24: can don socks by putting foot on bed deep knee flexion, very tight unable to cross R leg over L thigh. Initiated R LE garcia taps to start progress range. 03/17-inc ease w/nails, can put on socks; cannot cross R leg still 04/07 can cut toe nails but lean over, can put on socks w/ o issue, slowly getting more ROM for leg cross LTG Duration 06/02-progress strength Short Term Goal (STG) Pt will be indep w/HEP 03/17-pt occ compliant w/HEP; attempting to resume standing work again 04/07 still been doing well with exercises STG Duration 04/17-progression 03/17 Ware Dresser Goal (LTG) Pt will score at least 4+/5 on all LE MMT to show improved strength and stability to allow doing typical daily activities and return to work w/o limitation 03/17-advancing 04/07-improved LTG Duration 06/02 LEFS Impairment 26 Short Term Goal (STG) Pt will score at least 45 on LEFS to show improved functional ability. 03/17-limited by ankle 04/07- STG Duration 04/17-improving slwoly Ware Dresser Goal (LTG) Pt will score at least 58 on LEFS to show improved functional ability. LTG Duration 06/02 Assessment Summary Assessment Pt is showing progress with PT but has been limited due to L ankle painw hich she has seen her provider for. PT to cont to work on strength and mobility of hip until order is set for eval of ankle and hip . Physical Therapy Plan Frequency and Duration Frequency of Treatment 1-2x/wk Duration of treatment (weeks) 8 Plan of Care Start Date 04/07/24 Plan of Care End Date 06/02/24 Therapeutic Interventions Therapeutic Interventions Balance Training,Gait Training ,Home Exercise Program,Joint Mobilizations,Manual Therapy, Neuromuscular Re-education, Orthotic/Prosthetic Management ,Patient/Caregiver Education, Self-Care/Home Management,Soft Tissue Mobilization,Taping, Therapeutic Activities, Therapeutic Exercises Modalities Cold Pack/Ice Massage,Electric Stimulation,Hot Packs Next Visit Focus/Plan Next Note Type Treatment Note Next Visit Plan work on standing strength and functional strength; gradually work on balance; manual to improve hip range
--- NOTE | 2024-04-07 17:03 | PT.OPPOC ---
Physical, Occupational & Speech Therapy At [facility] Current Diagnoses Unilateral primary osteoarthritis, right hip (04/07/24) Pain in right hip (04/07/24) Encounter for other preprocedural examination (04/07/24) Visit Care Team Role Provider Type Keny Ibarra MD Family Provider Physician Primary Care Provider Specialty: Family Practice Address: [address] [place] [address], [address], [place], [address] Email: [email or web address] Gray Allred DO Attending Provider Non-Staff Referring Provider Specialty: Orthopedics Address: [address] [facility], [place], [address] Email: Plan Of Care PT-OP-B Current Condition Start: 02/05/24 16:37 Freq: Status: Active Protocol: Document 02/11/24 12:30 [facility] (Rec: 02/11/24 15:17 [facility] [id number]) Current Condition History of Current Condition Onset Date December 25 2023 Current Complaints R ant DEIDRA History of Current Condition Pt reports pain and numbness in R thigh since R DEIDRA. Doctor said at about 6 weeks, the numbness starts to heal slowly . Other than that, hip seems ok. She walked up to the football field and sat on it and walked back home and the next day got really nauseas and went to ER and had COVID. Pt reports she is cleared to turn leg to side. Knee was painful prior to sx and after surgery, it has been better and is worried about pushing range to avoid hurting knee. Can't clip toe nails. Pt reports she is cleared to move anyway now. Xrays looked good . chronic hx of B hip pain and R knee pain w/recent R sided pain worsening. OVerall feels like it is healing well. Spent 1 night in hospital. She was given gabapentin but it made her sleepy and it didn't help w/pain. pt reports she recently (about last week) gave up cane/walker. She still sits on a chair in tub. having an easier time getting socks on but does still struggle. Has noticed L achilles limitingher when attempting to go for short walks liek a few blocks. Pt feels weak Treatment Goals Patient/Caregiver Goals be able to move leg to get toenails trimmed/get socks on easier, be able to go for long walks (flat [place] 4miles); improve RLE flexibility (like cross leg) PT-OP-T Assessment and Plan Start: 02/05/24 16:37 Freq: Status: Active Protocol: Document 04/07/24 15:24 [facility] (Rec: 04/07/24 16:53 [facility] [id number]) Physical Therapy Assessment Goals activity Short Term Goal (STG) Pt will be able to return to walks of at least .5 mile w/o inc pain w/o AD. 02/27/24: unable at this time due to L foot pain in weight bearing and xray calcaneal spur. 03/12/24: still unable to WB into L ankle well. 03/17-did 15 min and felt okay;L ankle more limitor 04/07 -has been inc but not counting how far STG Duration 04/22 slow progression 03/12/24 Primary Teacher Goal (LTG) Pt will be able to return to walks of at least 2 mile w/o inc pain w/o AD. LTG Duration 06/02 mobility Assisted Goal (LTG) Pt will be able to cut toe nails, cross legs, put on socks w/o feeling of loss of mobility 03/12/24: can don socks by putting foot on bed deep knee flexion, very tight unable to cross R leg over L thigh. Initiated R LE garcia taps to start progress range. 03/17-inc ease w/nails, can put on socks; cannot cross R leg still 04/07 can cut toe nails but lean over, can put on socks w/ o issue, slowly getting more ROM for leg cross LTG Duration 06/02-progress strength Short Term Goal (STG) Pt will be indep w/HEP 03/17-pt occ compliant w/HEP; attempting to resume standing work again 04/07 still been doing well with exercises STG Duration 04/17-progression 03/17 Primary Teacher Goal (LTG) Pt will score at least 4+/5 on all LE MMT to show improved strength and stability to allow doing typical daily activities and return to work w/o limitation 03/17-advancing 04/07-improved LTG Duration 06/02 LEFS Impairment 26 Short Term Goal (STG) Pt will score at least 45 on LEFS to show improved functional ability. 03/17-limited by ankle 04/07- STG Duration 04/17-improving slwoly Assisted Goal (LTG) Pt will score at least 58 on LEFS to show improved functional ability. LTG Duration 06/02 Assessment Summary Assessment Pt is showing progress with PT but has been limited due to L ankle painw hich she has seen her provider for. PT to cont to work on strength and mobility of hip until order is set for eval of ankle and hip . Physical Therapy Plan Frequency and Duration Frequency of Treatment 1-2x/wk Duration of treatment (weeks) 8 Plan of Care Start Date 04/07/24 Plan of Care End Date 06/02/24 Therapeutic Interventions Therapeutic Interventions Balance Training,Gait Training ,Home Exercise Program,Joint Mobilizations,Manual Therapy, Neuromuscular Re-education, Orthotic/Prosthetic Management ,Patient/Caregiver Education, Self-Care/Home Management,Soft Tissue Mobilization,Taping, Therapeutic Activities, Therapeutic Exercises Modalities Cold Pack/Ice Massage,Electric Stimulation,Hot Packs Next Visit Focus/Plan Next Note Type Treatment Note Next Visit Plan work on standing strength and functional strength; gradually work on balance; manual to improve hip range Plan of Care Dates Plan of Care Start Date 04/07/24 Plan of Care End Date 06/02/24 Electronically Signed by: Radha Nj, PT 04/08/24 0803 If you are in agreement with this Plan of Care, please return a signed and dated copy. I have reviewed this Plan of Care and certify that the skilled therapy services above are required to meet the patient?s needs. Physician Signature Date Printed Name and Credentials Clinical Instructor Signature Printed Name and Credentials
--- NOTE | 2024-04-24 09:05 | PT.OTN ---
Current Diagnoses Unilateral primary osteoarthritis, right hip (04/24/24) Pain in right hip (04/24/24) Encounter for other preprocedural examination (04/24/24) Physical Therapy Treatment Note PT-OP-A Visit Information Start: 02/05/24 16:37 Freq: Status: Active Protocol: Document 04/24/24 08:19 [facility] (Rec: 04/24/24 09:04 [facility] [id number]) Out-Patient Physical Therapy Visit Information Visit Information Visit Type Progress Note Visit Note 07/18 Visit Start Time 08:16 Visit Stop Time 08:56 Visit Number 14 Number of ABLE SEAMAN Visits 0 PT-OP-B Current Condition Start: 02/05/24 16:37 Freq: Status: Active Protocol: Document 02/11/24 12:30 [facility] (Rec: 02/11/24 15:17 [facility] [id number]) Current Condition History of Current Condition Onset Date December 25 2023 Current Complaints R ant DEIDRA History of Current Condition Pt reports pain and numbness in R thigh since R DEIDRA. Doctor said at about 6 weeks, the numbness starts to heal slowly . Other than that, hip seems ok. She walked up to the football field and sat on it and walked back home and the next day got really nauseas and went to ER and had COVID. Pt reports she is cleared to turn leg to side. Knee was painful prior to sx and after surgery, it has been better and is worried about pushing range to avoid hurting knee. Can't clip toe nails. Pt reports she is cleared to move anyway now. Xrays looked good . chronic hx of B hip pain and R knee pain w/recent R sided pain worsening. OVerall feels like it is healing well. Spent 1 night in hospital. She was given gabapentin but it made her sleepy and it didn't help w/pain. pt reports she recently (about last week) gave up cane/walker. She still sits on a chair in tub. having an easier time getting socks on but does still struggle. Has noticed L achilles limitingher when attempting to go for short walks liek a few blocks. Pt feels weak Treatment Goals Patient/Caregiver Goals be able to move leg to get toenails trimmed/get socks on easier, be able to go for long walks (flat jo [place] 4miles); improve RLE flexibility (like cross leg) PT-OP-C Subjective Start: 02/05/24 16:37 Freq: Status: Active Protocol: Document 04/24/24 08:19 [facility] (Rec: 04/24/24 09:04 [facility] [id number]) OP-PT Subjective Patient Comments Patient Comments 2 weeks ago on sun or Sunday and had really bad and took the day off. She saw MD who said psoas tendonosis. Notes she thinks she knows what caused it is doing the lift of her leg mult times in/out of car. She has been back to [facility] or past 10 days and notice it . She helps it with her hands now. Pain more lat hip and leg. was initially in groin. Pain at night when she rolls over. It doesn't seem to be getting better despite icing and ibuprofen. PT-OP-D Balance Start: 02/05/24 16:37 Freq: Status: Active Protocol: Document 04/24/24 08:19 [facility] (Rec: 04/24/24 09:04 [facility] [id number]) Balance Tests Single Limb Standing Single Limb- Right 6 sec Single Limb- Left 4 sec PT-OP-G Mobility & Gait Start: 02/05/24 16:37 Freq: Status: Active Protocol: Document 02/11/24 12:30 [facility] (Rec: 02/11/24 15:17 [facility] [id number]) OP Gait Assessment Comments Gait Comments stiff amb, no push off or ext B hips, WBOS, lat leaning PT-OP-K Range of Motion Start: 02/05/24 16:37 Freq: Status: Active Protocol: Document 02/11/24 12:30 [facility] (Rec: 02/11/24 15:17 [facility] [id number]) Hip Goniometric Range of Motion Hip Right Active Flexion w/Knee Flexed 80 Straight Leg Raise 49 Abduction 16 Internal Rotation 24 External Rotation 5 Comments tightness of R scar Left Active Flexion w/Knee Flexed 101 Straight Leg Raise 50 Abduction 18 Internal Rotation 17 External Rotation 8 PT-OP-M Strength Start: 02/05/24 16:37 Freq: Status: Active Protocol: Document 04/24/24 08:19 [facility] (Rec: 04/24/24 09:04 [facility] [id number]) Hip Strength Hip Manual Muscle Testing Right Flexion (L2) 3+ Fair+ Abduction 3 Fair External Rotation 4 Good Internal Rotation 5 Normal Comments pain w/flex & abd Left Flexion (L2) 4 Good Abduction 4+ Good+ External Rotation 4 Good Internal Rotation 5 Normal Knee Strength Knee Manual Muscle Testing Right Flexion (S2) 5 Normal Extension (L3) 4 Good Left Flexion (S2) 5 Normal Extension (L3) 5 Normal Ankle/Foot Strength Ankle and Foot Manual Muscle Testing Right Dorsiflexion (L4) 5 Normal Plantarflexion (S1) 5 Normal Comments PF tested seated Left Dorsiflexion (L4) 5 Normal Plantarflexion (S1) 5 Normal PT-OP-Q Treatments Start: 02/05/24 16:37 Freq: Status: Active Protocol: Document 04/24/24 08:19 [facility] (Rec: 04/24/24 09:04 [facility] [id number]) Gym Equipment Shuttle Balance Red Comments Fwd & side: WBOS balance fwd: NBOS and staggered stance B Therapeutic Exercises Supine Exercises bridge Side bilateral Reps/Minutes 10x10 sec Single KFO Side bilateral Equipment Used L2 Reps/Minutes 15 Comments cues core heel slide Side right Reps/Minutes 15 Standing Exercises squat Standing Exercise Name over chair Side bilateral Reps/Minutes 15 Comments comfortable range stretch Standing Exercise Name hip flexor gentle Side bilateral Reps/Minutes 30 sec Other Exercises isometrics Other Exercise Name B LE MMT Side bilateral Manual Therapy Treatment Consent Patient gave verbal consent for manual Yes treatment Soft Tissue Mobilization hip flexor Body Location R iliacus and TFL Mobilization Type Sustained Pressure Intensity/Depth Moderate Body Position Supine Comments w/ER/IR R leg Body Location R thigh Mobilization Type Myofascial Release Intensity/Depth Superficial Body Position Hooklying Comments w/hip ER /IR Neuro Re-Education Treatment Balance Activities SLS Comments B trials PT-OP-T Assessment and Plan Start: 02/05/24 16:37 Freq: Status: Active Protocol: Document 04/24/24 08:19 [facility] (Rec: 04/24/24 09:04 [facility] [id number]) Physical Therapy Assessment Goals activity Short Term Goal (STG) Pt will be able to return to walks of at least .5 mile w/o inc pain w/o AD. 02/27/24: unable at this time due to L foot pain in weight bearing and xray calcaneal spur. 03/12/24: still unable to WB into L ankle well. 03/17-did 15 min and felt okay;L ankle more limitor 04/07 -has been inc but not counting how far STG Duration achieved 04/24 Occupational Health Nurse Manager Goal (LTG) Pt will be able to return to walks of at least 2 mile w/o inc pain w/o AD. 04/24-has been able to go for about 20 min LTG Duration 06/27 mobility Short Term Goal (STG) Pt will be able to get in /out of car w/o inc pain STG Duration 05/23 Occupational Health Nurse Manager Goal (LTG) Pt will be able to cut toe nails, cross legs, put on socks w/o feeling of loss of mobility 03/12/24: can don socks by putting foot on bed deep knee flexion, very tight unable to cross R leg over L thigh. Initiated R LE garcia taps to start progress range. 03/17-inc ease w/nails, can put on socks; cannot cross R leg still 04/07 can cut toe nails but lean over, can put on socks w/ o issue, slowly getting more ROM for leg cross 04/24-socks okay,toenails better LTG Duration 06/27 strength Short Term Goal (STG) Pt will be indep w/HEP 03/17-pt occ compliant w/HEP; attempting to resume standing work again 04/07 still been doing well with exercises 04/24-avoided exercises d/t tendonitis STG Duration 05/23 Longterm Goal (LTG) Pt will score at least 4+/5 on all LE MMT to show improved strength and stability to allow doing typical daily activities and return to work w/o limitation 03/17-advancing 04/07-improved LTG Duration 06/27 LEFS Impairment 26 Short Term Goal (STG) Pt will score at least 45 on LEFS to show improved functional ability. 03/17-limited by ankle 04/07- 04/24- STG Duration 04/17-improving slwoly Occupational Health Nurse Manager Goal (LTG) Pt will score at least 58 on LEFS to show improved functional ability. LTG Duration 06/27 Assessment Summary Assessment Pt did well with exercises and reported no pain. Struggles w /balance still. She is returning to PT after 2 weeks off d/t hip pain which dx as psoas tendonosis. Cont PT to improve functional ability, strength and balance. Physical Therapy Plan Frequency and Duration Frequency of Treatment 1-2x/wk Duration of treatment (weeks) 8 Plan of Care Start Date 04/24/24 Plan of Care End Date 06/27/24 Therapeutic Interventions Therapeutic Interventions Balance Training,Gait Training ,Home Exercise Program,Joint Mobilizations,Manual Therapy, Neuromuscular Re-education, Orthotic/Prosthetic Management ,Patient/Caregiver Education, Self-Care/Home Management,Soft Tissue Mobilization,Taping, Therapeutic Activities, Therapeutic Exercises Modalities Cold Pack/Ice Massage,Electric Stimulation,Hot Packs Next Visit Focus/Plan Next Note Type Treatment Note Next Visit Plan work on standing strength and functional strength; gradually work on balance; manual to improve hip range careful w/flex activties
--- NOTE | 2024-04-24 09:05 | PT.OPPOC ---
Physical, Occupational & Speech Therapy At [facility] Current Diagnoses Unilateral primary osteoarthritis, right hip (04/24/24) Pain in right hip (04/24/24) Encounter for other preprocedural examination (04/24/24) Visit Care Team Role Provider Type Keny Ibarra MD Family Provider Physician Primary Care Provider Specialty: Family Practice Address: [address] [place] [address], [address], [place], [address] Email: [email or web address] Gray Allred DO Attending Provider Non-Staff Referring Provider Specialty: Orthopedics Address: [address] [facility], [place], [address] Email: Plan Of Care PT-OP-B Current Condition Start: 02/05/24 16:37 Freq: Status: Active Protocol: Document 02/11/24 12:30 [facility] (Rec: 02/11/24 15:17 [facility] [id number]) Current Condition History of Current Condition Onset Date December 25 2023 Current Complaints R ant DEIDRA History of Current Condition Pt reports pain and numbness in R thigh since R DEIDRA. Doctor said at about 6 weeks, the numbness starts to heal slowly . Other than that, hip seems ok. She walked up to the football field and sat on it and walked back home and the next day got really nauseas and went to ER and had COVID. Pt reports she is cleared to turn leg to side. Knee was painful prior to sx and after surgery, it has been better and is worried about pushing range to avoid hurting knee. Can't clip toe nails. Pt reports she is cleared to move anyway now. Xrays looked good . chronic hx of B hip pain and R knee pain w/recent R sided pain worsening. OVerall feels like it is healing well. Spent 1 night in hospital. She was given gabapentin but it made her sleepy and it didn't help w/pain. pt reports she recently (about last week) gave up cane/walker. She still sits on a chair in tub. having an easier time getting socks on but does still struggle. Has noticed L achilles limitingher when attempting to go for short walks liek a few blocks. Pt feels weak Treatment Goals Patient/Caregiver Goals be able to move leg to get toenails trimmed/get socks on easier, be able to go for long walks (flat [place] 4miles); improve RLE flexibility (like cross leg) PT-OP-T Assessment and Plan Start: 02/05/24 16:37 Freq: Status: Active Protocol: Document 04/24/24 08:19 [facility] (Rec: 04/24/24 09:04 [facility] [id number]) Physical Therapy Assessment Goals activity Short Term Goal (STG) Pt will be able to return to walks of at least .5 mile w/o inc pain w/o AD. 02/27/24: unable at this time due to L foot pain in weight bearing and xray calcaneal spur. 03/12/24: still unable to WB into L ankle well. 03/17-did 15 min and felt okay;L ankle more limitor 04/07 -has been inc but not counting how far STG Duration achieved 04/24 Assisted Goal (LTG) Pt will be able to return to walks of at least 2 mile w/o inc pain w/o AD. 04/24-has been able to go for about 20 min LTG Duration 06/27 mobility Short Term Goal (STG) Pt will be able to get in /out of car w/o inc pain STG Duration 05/23 Assisted Goal (LTG) Pt will be able to cut toe nails, cross legs, put on socks w/o feeling of loss of mobility 03/12/24: can don socks by putting foot on bed deep knee flexion, very tight unable to cross R leg over L thigh. Initiated R LE garcia taps to start progress range. 03/17-inc ease w/nails, can put on socks; cannot cross R leg still 04/07 can cut toe nails but lean over, can put on socks w/ o issue, slowly getting more ROM for leg cross 04/24-socks okay,toenails better LTG Duration 06/27 strength Short Term Goal (STG) Pt will be indep w/HEP 03/17-pt occ compliant w/HEP; attempting to resume standing work again 04/07 still been doing well with exercises 04/24-avoided exercises d/t tendonitis STG Duration 05/23 Assisted Goal (LTG) Pt will score at least 4+/5 on all LE MMT to show improved strength and stability to allow doing typical daily activities and return to work w/o limitation 03/17-advancing 04/07-improved LTG Duration 06/27 LEFS Impairment 26 Short Term Goal (STG) Pt will score at least 45 on LEFS to show improved functional ability. 03/17-limited by ankle 04/07- 04/24- STG Duration 04/17-improving slw[place] Goal (LTG) Pt will score at least 58 on LEFS to show improved functional ability. LTG Duration 06/27 Assessment Summary Assessment Pt did well with exercises and reported no pain. Struggles w /balance still. She is returning to PT after 2 weeks off d/t hip pain which MD dx as psoas tendonosis. Cont PT to improve functional ability, strength and balance. Physical Therapy Plan Frequency and Duration Frequency of Treatment 1-2x/wk Duration of treatment (weeks) 8 Plan of Care Start Date 04/24/24 Plan of Care End Date 06/27/24 Therapeutic Interventions Therapeutic Interventions Balance Training,Gait Training ,Home Exercise Program,Joint Mobilizations,Manual Therapy, Neuromuscular Re-education, Orthotic/Prosthetic Management ,Patient/Caregiver Education, Self-Care/Home Management,Soft Tissue Mobilization,Taping, Therapeutic Activities, Therapeutic Exercises Modalities Cold Pack/Ice Massage,Electric Stimulation,Hot Packs Next Visit Focus/Plan Next Note Type Treatment Note Next Visit Plan work on standing strength and functional strength; gradually work on balance; manual to improve hip range careful w/flex activties Plan of Care Dates Plan of Care Start Date 04/24/24 Plan of Care End Date 06/27/24 Electronically Signed by: Radha Nj, PT 04/24/24 0905 If you are in agreement with this Plan of Care, please return a signed and dated copy. I have reviewed this Plan of Care and certify that the skilled therapy services above are required to meet the patient?s needs. Physician Signature Date Printed Name and Credentials Clinical Instructor Signature Printed Name and Credentials
--- NOTE | 2024-04-28 12:13 | PT.OTN ---
Current Diagnoses Unilateral primary osteoarthritis, right hip (04/28/24) Pain in right hip (04/28/24) Encounter for other preprocedural examination (04/28/24) Physical Therapy Treatment Note PT-OP-A Visit Information Start: 02/05/24 16:37 Freq: Status: Active Protocol: Document 04/28/24 11:33 SP (Rec: 04/28/24 12:27 SP [id number]) Out-Patient Physical Therapy Visit Information Visit Information Visit Type Treatment Note Visit Note 09/15 Visit Start Time 11:33 Visit Stop Time 12:13 Visit Number 15 Number of CORE DRILL OPERATOR HELPER Visits 1 Evaluation Information Evaluation Date 02/11/24 Precautions Precautions December 25 2023: R Ant DEIDRA 02/21/24: L foot pain xray: impression: No acute bony abnormality, Calcaneal spur. PT-OP-B Current Condition Start: 02/05/24 16:37 Freq: Status: Active Protocol: Document 02/11/24 12:30 [facility] (Rec: 02/11/24 15:17 [facility] [id number]) Current Condition History of Current Condition Onset Date December 25 2023 Current Complaints R ant DEIDRA History of Current Condition Pt reports pain and numbness in R thigh since R DEIDRA. Doctor said at about 6 weeks, the numbness starts to heal slowly . Other than that, hip seems ok. She walked up to the football field and sat on it and walked back home and the next day got really nauseas and went to ER and had COVID. Pt reports she is cleared to turn leg to side. Knee was painful prior to sx and after surgery, it has been better and is worried about pushing range to avoid hurting knee. Can't clip toe nails. Pt reports she is cleared to move anyway now. Xrays looked good . chronic hx of B hip pain and R knee pain w/recent R sided pain worsening. OVerall feels like it is healing well. Spent 1 night in hospital. She was given gabapentin but it made her sleepy and it didn't help w/pain. pt reports she recently (about last week) gave up cane/walker. She still sits on a chair in tub. having an easier time getting socks on but does still struggle. Has noticed L achilles limitingher when attempting to go for short walks liek a few blocks. Pt feels weak Treatment Goals Patient/Caregiver Goals be able to move leg to get toenails trimmed/get socks on easier, be able to go for long walks (flat [place] 4miles); improve RLE flexibility (like cross leg) PT-OP-C Subjective Start: 02/05/24 16:37 Freq: Status: Active Protocol: Document 04/28/24 11:33 SP (Rec: 04/28/24 12:27 SP [id number]) OP-PT Subjective Patient Comments Patient Comments Pt reports having ache pain proximal R hip and now hard putting pants on R leg standing on L. Awaiting coritizone injection R hip. Lifts both leg together in/out car to lessen R hip pain. She states the numbness is slowly getting better R thigh. She reports has only performed supine TA HEP x1 since lasttx. PT-OP-D Balance Start: 02/05/24 16:37 Freq: Status: Active Protocol: Document 04/24/24 08:19 [facility] (Rec: 04/24/24 09:04 [facility] [id number]) Balance Tests Single Limb Standing Single Limb- Right 6 sec Single Limb- Left 4 sec PT-OP-G Mobility & Gait Start: 02/05/24 16:37 Freq: Status: Active Protocol: Document 02/11/24 12:30 [facility] (Rec: 02/11/24 15:17 [facility] [id number]) OP Gait Assessment Comments Gait Comments stiff amb, no push off or ext B hips, WBOS, lat leaning PT-OP-K Range of Motion Start: 02/05/24 16:37 Freq: Status: Active Protocol: Document 02/11/24 12:30 [facility] (Rec: 02/11/24 15:17 [facility] [id number]) Hip Goniometric Range of Motion Hip Right Active Flexion w/Knee Flexed 80 Straight Leg Raise 49 Abduction 16 Internal Rotation 24 External Rotation 5 Comments tightness of R scar Left Active Flexion w/Knee Flexed 101 Straight Leg Raise 50 Abduction 18 Internal Rotation 17 External Rotation 8 PT-OP-M Strength Start: 02/05/24 16:37 Freq: Status: Active Protocol: Document 04/24/24 08:19 [facility] (Rec: 04/24/24 09:04 [facility] [id number]) Hip Strength Hip Manual Muscle Testing Right Flexion (L2) 3+ Fair+ Abduction 3 Fair External Rotation 4 Good Internal Rotation 5 Normal Comments pain w/flex & abd Left Flexion (L2) 4 Good Abduction 4+ Good+ External Rotation 4 Good Internal Rotation 5 Normal Knee Strength Knee Manual Muscle Testing Right Flexion (S2) 5 Normal Extension (L3) 4 Good Left Flexion (S2) 5 Normal Extension (L3) 5 Normal Ankle/Foot Strength Ankle and Foot Manual Muscle Testing Right Dorsiflexion (L4) 5 Normal Plantarflexion (S1) 5 Normal Comments PF tested seated Left Dorsiflexion (L4) 5 Normal Plantarflexion (S1) 5 Normal PT-OP-Q Treatments Start: 02/05/24 16:37 Freq: Status: Active Protocol: Document 04/28/24 11:33 SP (Rec: 04/28/24 12:27 SP [id number]) Gym Equipment Shuttle Balance Red Comments Fwd & side: WBOS balance fwd: NBOS and staggered stance B Head turns CG-10%A Therapeutic Exercises Supine Exercises bridge Side bilateral Reps/Minutes 10x10 sec Comments Cued increase lift, glut engagement- pnfree reported Single KFO Side bilateral Equipment Used L2 Reps/Minutes 15 Comments cues neutral pelvis, core heel slide Side right Resistance AROM Reps/Minutes 15 reps Comments light pressure MWM TFL, iliacus Standing Exercises squat Standing Exercise Name 1. hover over chair 2. Sit<> stands Side bilateral Resistance arms across chest Reps/Minutes 1. 8 reps 2. 15 reps Comments comfortable range Manual Therapy Treatment Soft Tissue Mobilization hip flexor Body Location R iliacus and TFL Mobilization Type Sustained Pressure,Other Intensity/Depth Moderate Body Position Supine Comments hip flex/ext & ER/IR R leg Body Location R thigh Mobilization Type Myofascial Release Intensity/Depth Superficial Body Position Hooklying Comments w/hip ER /IR Neuro Re-Education Treatment Balance Activities foam Details balloon volley Equipment foam cushion WBOS- inside // bars Comments EO outside HAN good wt shift, balance recovery- not need addition staff support hurdles Details fwd reciprocal over Equipment 6 hurdles, hurdles + foam> just foam Reps/Duration x4 laps Comments reports slight discomfort initial R hip flexion lift over kirk and or on foam then is ok rest reps. PT-OP-R Modalities Start: 02/05/24 16:37 Freq: Status: Active Protocol: Document 04/28/24 11:33 SP (Rec: 04/28/24 12:27 SP [id number]) Hot Pack/Cold Pack Treatment Cold Pack Location R anterolateral hip Patient Position Hooklying Patient Tolerance Good Comments Good feedback response lessening achiness end tx. PT-OP-T Assessment and Plan Start: 02/05/24 16:37 Freq: Status: Active Protocol: Document 04/28/24 11:33 SP (Rec: 04/28/24 12:27 SP [id number]) Physical Therapy Assessment Goals activity Short Term Goal (STG) Pt will be able to return to walks of at least .5 mile w/o inc pain w/o AD. 02/27/24: unable at this time due to L foot pain in weight bearing and xray calcaneal spur. 03/12/24: still unable to WB into L ankle well. 03/17-did 15 min and felt okay;L ankle more limitor 04/07 -has been inc but not counting how far STG Duration achieved 04/24 Optical Coating Technician Goal (LTG) Pt will be able to return to walks of at least 2 mile w/o inc pain w/o AD. 04/24-has been able to go for about 20 min LTG Duration 06/27 mobility Short Term Goal (STG) Pt will be able to get in /out of car w/o inc pain STG Duration 05/23 Optical Coating Technician Goal (LTG) Pt will be able to cut toe nails, cross legs, put on socks w/o feeling of loss of mobility 03/12/24: can don socks by putting foot on bed deep knee flexion, very tight unable to cross R leg over L thigh. Initiated R LE garcia taps to start progress range. 03/17-inc ease w/nails, can put on socks; cannot cross R leg still 04/07 can cut toe nails but lean over, can put on socks w/ o issue, slowly getting more ROM for leg cross 04/24-socks okay,toenails better LTG Duration 06/27 strength Short Term Goal (STG) Pt will be indep w/HEP 03/17-pt occ compliant w/HEP; attempting to resume standing work again 04/07 still been doing well with exercises 04/24-avoided exercises d/t tendonitis STG Duration 05/23 Optical Coating Technician Goal (LTG) Pt will score at least 4+/5 on all LE MMT to show improved strength and stability to allow doing typical daily activities and return to work w/o limitation 03/17-advancing 04/07-improved LTG Duration 06/27 LEFS Impairment 26 Short Term Goal (STG) Pt will score at least 45 on LEFS to show improved functional ability. 03/17-limited by ankle 04/07- 04/24- STG Duration 04/17-improving slwoly Prison Goal (LTG) Pt will score at least 58 on LEFS to show improved functional ability. LTG Duration 06/27 Assessment Summary Assessment Pt improved hip ROM post manual. Improved wt shift acceptance into RLE, no pain during balance activities BLE stationary but reports R anterior hip discomfort at end tx during kirk and or foam stepping activity during the intial hip flexion to lift, limited laps as to not irritated psoas tendonosis. Provided pt CP R anterior hip end tx for discomfort carryover before returns to work day with good feedback response. Education provided for continue perform hip abd and hip flexion/ext TA heels slides and KFO for strengthening with less psoas recruitiment, verbalized will be better about this. Physical Therapy Plan Frequency and Duration Frequency of Treatment 1-2x/wk Duration of treatment (weeks) 8 Plan of Care Start Date 04/24/24 Plan of Care End Date 06/27/24 Therapeutic Interventions Therapeutic Interventions Balance Training,Gait Training ,Home Exercise Program,Joint Mobilizations,Manual Therapy, Neuromuscular Re-education, Orthotic/Prosthetic Management ,Patient/Caregiver Education, Self-Care/Home Management,Soft Tissue Mobilization,Taping, Therapeutic Activities, Therapeutic Exercises Modalities Cold Pack/Ice Massage,Electric Stimulation,Hot Packs Next Visit Focus/Plan Next Note Type Treatment Note Next Visit Plan work on standing strength and functional strength; gradually work on balance; manual to improve hip range careful w/flex activties
--- NOTE | 2024-04-30 15:28 | PT.OTN ---
Current Diagnoses Unilateral primary osteoarthritis, right hip (04/30/24) Pain in right hip (04/30/24) Encounter for other preprocedural examination (04/30/24) Physical Therapy Treatment Note PT-OP-A Visit Information Start: 02/05/24 16:37 Freq: Status: Active Protocol: Document 04/30/24 14:33 [facility] (Rec: 04/30/24 15:28 [facility] [id number]) Out-Patient Physical Therapy Visit Information Visit Information Visit Type Treatment Note Visit Note 09/15 Visit Start Time 14:35 Visit Stop Time 15:15 Visit Number 16 Number of BEEHIVE KILN CHARCOAL BURNER Visits 0 PT-OP-B Current Condition Start: 02/05/24 16:37 Freq: Status: Active Protocol: Document 02/11/24 12:30 [facility] (Rec: 02/11/24 15:17 [facility] [id number]) Current Condition History of Current Condition Onset Date December 25 2023 Current Complaints R ant DEIDRA History of Current Condition Pt reports pain and numbness in R thigh since R DEIDRA. Doctor said at about 6 weeks, the numbness starts to heal slowly . Other than that, hip seems ok. She walked up to the football field and sat on it and walked back home and the next day got really nauseas and went to ER and had COVID. Pt reports she is cleared to turn leg to side. Knee was painful prior to sx and after surgery, it has been better and is worried about pushing range to avoid hurting knee. Can't clip toe nails. Pt reports she is cleared to move anyway now. Xrays looked good . chronic hx of B hip pain and R knee pain w/recent R sided pain worsening. OVerall feels like it is healing well. Spent 1 night in hospital. She was given gabapentin but it made her sleepy and it didn't help w/pain. pt reports she recently (about last week) gave up cane/walker. She still sits on a chair in tub. having an easier time getting socks on but does still struggle. Has noticed L achilles limitingher when attempting to go for short walks liek a few blocks. Pt feels weak Treatment Goals Patient/Caregiver Goals be able to move leg to get toenails trimmed/get socks on easier, be able to go for long walks (flat [place] 4miles); improve RLE flexibility (like cross leg) PT-OP-C Subjective Start: 02/05/24 16:37 Freq: Status: Active Protocol: Document 04/30/24 14:33 [facility] (Rec: 04/30/24 15:28 [facility] [id number]) OP-PT Subjective Patient Comments Patient Comments Pt reports he walked up an incline up the grass, and every step she took, it hurt. Flat is okay. She is sore at night. Any other activity lifting RLE, causes pain. PT-OP-D Balance Start: 02/05/24 16:37 Freq: Status: Active Protocol: Document 04/24/24 08:19 [facility] (Rec: 04/24/24 09:04 [facility] [id number]) Balance Tests Single Limb Standing Single Limb- Right 6 sec Single Limb- Left 4 sec PT-OP-G Mobility & Gait Start: 02/05/24 16:37 Freq: Status: Active Protocol: Document 02/11/24 12:30 [facility] (Rec: 02/11/24 15:17 [facility] [id number]) OP Gait Assessment Comments Gait Comments stiff amb, no push off or ext B hips, WBOS, lat leaning PT-OP-K Range of Motion Start: 02/05/24 16:37 Freq: Status: Active Protocol: Document 02/11/24 12:30 [facility] (Rec: 02/11/24 15:17 [facility] [id number]) Hip Goniometric Range of Motion Hip Right Active Flexion w/Knee Flexed 80 Straight Leg Raise 49 Abduction 16 Internal Rotation 24 External Rotation 5 Comments tightness of R scar Left Active Flexion w/Knee Flexed 101 Straight Leg Raise 50 Abduction 18 Internal Rotation 17 External Rotation 8 PT-OP-M Strength Start: 02/05/24 16:37 Freq: Status: Active Protocol: Document 04/24/24 08:19 [facility] (Rec: 04/24/24 09:04 [facility] [id number]) Hip Strength Hip Manual Muscle Testing Right Flexion (L2) 3+ Fair+ Abduction 3 Fair External Rotation 4 Good Internal Rotation 5 Normal Comments pain w/flex & abd Left Flexion (L2) 4 Good Abduction 4+ Good+ External Rotation 4 Good Internal Rotation 5 Normal Knee Strength Knee Manual Muscle Testing Right Flexion (S2) 5 Normal Extension (L3) 4 Good Left Flexion (S2) 5 Normal Extension (L3) 5 Normal Ankle/Foot Strength Ankle and Foot Manual Muscle Testing Right Dorsiflexion (L4) 5 Normal Plantarflexion (S1) 5 Normal Comments PF tested seated Left Dorsiflexion (L4) 5 Normal Plantarflexion (S1) 5 Normal PT-OP-Q Treatments Start: 02/05/24 16:37 Freq: Status: Active Protocol: Document 04/30/24 14:33 [facility] (Rec: 04/30/24 15:28 [facility] [id number]) Therapeutic Exercises Supine Exercises march Supine Exercise Name small lift Side bilateral Reps/Minutes 15 Comments cues core max cues heel slide Side bilateral Resistance AROM Reps/Minutes 15 ea Comments cues core Standing Exercises squat Standing Exercise Name 1. hover over chair 2. Sit<> stands Side bilateral Resistance arms across chest Reps/Minutes 12 ea Comments comfortable range step down Standing Exercise Name w/backwards step up Side right Equipment Used 4 in step Reps/Minutes 10 Comments cues knee position step up Standing Exercise Name 1. lat. fwd Side right Equipment Used 4 in Reps/Minutes 10 ea Comments cues full knee ext Manual Therapy Treatment Consent Patient gave verbal consent for manual Yes treatment Soft Tissue Mobilization abdomen Body Location medial parietocecal ligament Comments w/hip ER hip flexor Body Location R iliacus & psoas and TFL Mobilization Type Sustained Pressure,Other Intensity/Depth Moderate Body Position Supine Comments hip flex/ext & ER/IR HS Body Location R HS Mobilization Type Rolling Intensity/Depth Moderate Comments w/AAROM hip flex Joint Mobilizations innominate Comments R flex c/r hip Comments R inf glide c/r PT-OP-R Modalities Start: 02/05/24 16:37 Freq: Status: Active Protocol: Document 04/28/24 11:33 SP (Rec: 04/28/24 12:27 SP [id number]) Hot Pack/Cold Pack Treatment Cold Pack Location R anterolateral hip Patient Position Hooklying Patient Tolerance Good Comments Good feedback response lessening achiness end tx. PT-OP-T Assessment and Plan Start: 02/05/24 16:37 Freq: Status: Active Protocol: Document 04/30/24 14:33 [facility] (Rec: 04/30/24 15:28 [facility] [id number]) Physical Therapy Assessment Goals activity Short Term Goal (STG) Pt will be able to return to walks of at least .5 mile w/o inc pain w/o AD. 02/27/24: unable at this time due to L foot pain in weight bearing and xray calcaneal spur. 03/12/24: still unable to WB into L ankle well. 03/17-did 15 min and felt okay;L ankle more limitor 04/07 -has been inc but not counting how far STG Duration achieved 04/24 Longterm Goal (LTG) Pt will be able to return to walks of at least 2 mile w/o inc pain w/o AD. 04/24-has been able to go for about 20 min LTG Duration 06/27 mobility Short Term Goal (STG) Pt will be able to get in /out of car w/o inc pain STG Duration 05/23 Longterm Goal (LTG) Pt will be able to cut toe nails, cross legs, put on socks w/o feeling of loss of mobility 03/12/24: can don socks by putting foot on bed deep knee flexion, very tight unable to cross R leg over L thigh. Initiated R LE garcia taps to start progress range. 03/17-inc ease w/nails, can put on socks; cannot cross R leg still 04/07 can cut toe nails but lean over, can put on socks w/ o issue, slowly getting more ROM for leg cross 04/24-socks okay,toenails better LTG Duration 06/27 strength Short Term Goal (STG) Pt will be indep w/HEP 03/17-pt occ compliant w/HEP; attempting to resume standing work again 04/07 still been doing well with exercises 04/24-avoided exercises d/t tendonitis STG Duration 05/23 Tree Feller Goal (LTG) Pt will score at least 4+/5 on all LE MMT to show improved strength and stability to allow doing typical daily activities and return to work w/o limitation 03/17-advancing 04/07-improved LTG Duration 06/27 LEFS Impairment 26 Short Term Goal (STG) Pt will score at least 45 on LEFS to show improved functional ability. 03/17-limited by ankle 04/07- 04/24- STG Duration 04/17-improving slwoly Tree Feller Goal (LTG) Pt will score at least 58 on LEFS to show improved functional ability. LTG Duration 06/27 Assessment Summary Assessment Pt reports dec pain after manual care. She had improved hip flex after manual. cues needed for core w/exercises. Physical Therapy Plan Frequency and Duration Frequency of Treatment 1-2x/wk Duration of treatment (weeks) 8 Plan of Care Start Date 04/24/24 Plan of Care End Date 06/27/24 Next Visit Focus/Plan Next Note Type Treatment Note Next Visit Plan work on standing strength and functional strength; gradually work on balance; manual to improve hip range careful w/flex activties
--- NOTE | 2024-05-05 12:19 | PT.OTN ---
Current Diagnoses Unilateral primary osteoarthritis, right hip (05/05/24) Pain in right hip (05/05/24) Encounter for other preprocedural examination (05/05/24) Physical Therapy Treatment Note PT-OP-A Visit Information Start: 02/05/24 16:37 Freq: Status: Active Protocol: Document 05/05/24 10:46 AB (Rec: 05/05/24 12:19 AB [id number]) Out-Patient Physical Therapy Visit Information Visit Information Visit Type Treatment Note Visit Note 10/16 Visit [email or web address] Visit Start Time 11:33 Visit Stop Time 12:25 Visit Number 17 Number of FITNESS MANAGER Visits 1 Evaluation Information Evaluation Date 02/11/24 Precautions Precautions December 25 2023: R Ant DEIDRA 02/21/24: L foot pain xray: impression: No acute bony abnormality, Calcaneal spur. PT-OP-B Current Condition Start: 02/05/24 16:37 Freq: Status: Active Protocol: Document 02/11/24 12:30 [facility] (Rec: 02/11/24 15:17 [facility] [id number]) Current Condition History of Current Condition Onset Date December 25 2023 Current Complaints R ant DEIDRA History of Current Condition Pt reports pain and numbness in R thigh since R DEIDRA. Doctor said at about 6 weeks, the numbness starts to heal slowly . Other than that, hip seems ok. She walked up to the football field and sat on it and walked back home and the next day got really nauseas and went to ER and had COVID. Pt reports she is cleared to turn leg to side. Knee was painful prior to sx and after surgery, it has been better and is worried about pushing range to avoid hurting knee. Can't clip toe nails. Pt reports she is cleared to move anyway now. Xrays looked good . chronic hx of B hip pain and R knee pain w/recent R sided pain worsening. OVerall feels like it is healing well. Spent 1 night in hospital. She was given gabapentin but it made her sleepy and it didn't help w/pain. pt reports she recently (about last week) gave up cane/walker. She still sits on a chair in tub. having an easier time getting socks on but does still struggle. Has noticed L achilles limitingher when attempting to go for short walks liek a few blocks. Pt feels weak Treatment Goals Patient/Caregiver Goals be able to move leg to get toenails trimmed/get socks on easier, be able to go for long walks (flat [place] 4miles); improve RLE flexibility (like cross leg) PT-OP-C Subjective Start: 02/05/24 16:37 Freq: Status: Active Protocol: Document 05/05/24 10:46 AB (Rec: 05/05/24 12:19 AB [id number]) OP-PT Subjective Patient Comments Patient Comments Patient reports her hip is in misery, has tendonitis in the hip, step ups are painful, sleeping is painful when rolling. Patient reports getting out of the car is what she thinks aggravated her hip . Patient rates right hip pain lifting LE up to a 2 inch step. PT-OP-D Balance Start: 02/05/24 16:37 Freq: Status: Active Protocol: Document 04/24/24 08:19 [facility] (Rec: 04/24/24 09:04 [facility] [id number]) Balance Tests Single Limb Standing Single Limb- Right 6 sec Single Limb- Left 4 sec PT-OP-G Mobility & Gait Start: 02/05/24 16:37 Freq: Status: Active Protocol: Document 02/11/24 12:30 [facility] (Rec: 02/11/24 15:17 [facility] [id number]) OP Gait Assessment Comments Gait Comments stiff amb, no push off or ext B hips, WBOS, lat leaning PT-OP-K Range of Motion Start: 02/05/24 16:37 Freq: Status: Active Protocol: Document 02/11/24 12:30 [facility] (Rec: 02/11/24 15:17 [facility] [id number]) Hip Goniometric Range of Motion Hip Right Active Flexion w/Knee Flexed 80 Straight Leg Raise 49 Abduction 16 Internal Rotation 24 External Rotation 5 Comments tightness of R scar Left Active Flexion w/Knee Flexed 101 Straight Leg Raise 50 Abduction 18 Internal Rotation 17 External Rotation 8 PT-OP-M Strength Start: 02/05/24 16:37 Freq: Status: Active Protocol: Document 04/24/24 08:19 [facility] (Rec: 04/24/24 09:04 [facility] [id number]) Hip Strength Hip Manual Muscle Testing Right Flexion (L2) 3+ Fair+ Abduction 3 Fair External Rotation 4 Good Internal Rotation 5 Normal Comments pain w/flex & abd Left Flexion (L2) 4 Good Abduction 4+ Good+ External Rotation 4 Good Internal Rotation 5 Normal Knee Strength Knee Manual Muscle Testing Right Flexion (S2) 5 Normal Extension (L3) 4 Good Left Flexion (S2) 5 Normal Extension (L3) 5 Normal Ankle/Foot Strength Ankle and Foot Manual Muscle Testing Right Dorsiflexion (L4) 5 Normal Plantarflexion (S1) 5 Normal Comments PF tested seated Left Dorsiflexion (L4) 5 Normal Plantarflexion (S1) 5 Normal PT-OP-Q Treatments Start: 02/05/24 16:37 Freq: Status: Active Protocol: Document 05/05/24 10:46 AB (Rec: 05/05/24 12:19 AB [id number]) Therapeutic Exercises Supine Exercises bridge Side bilateral Reps/Minutes 10x Sitting Exercises seated hip hinge Side bilateral Reps/Minutes X5 Comments Pt ed use of self tactile cues seated hip abd with band Sitting Exercise Name HEP Side bilateral Resistance level 3 band tied above knees Reps/Minutes one minute X 1 Standing Exercises retro stepping with band Side bilateral Resistance level 3 reno-sparks green band Reps/Minutes one minute and X15 without pain side stepping with band Side bilateral Resistance level green band Reps/Minutes 2 minutes sit to stand Standing Exercise Name HEP Side bilateral Resistance lvl 3 at thighs Equipment Used arms front Reps/Minutes [id number] Comments cued slower descend sit full sit to chair Therapeutic Activity Therapeutic Activity simulated car transfer Comments verbal cues to scoot back so thigh is fully supported prior to sliding LE into place in and out of car Manual Therapy Treatment Consent Patient gave verbal consent for manual Yes treatment Soft Tissue Mobilization hip flexor Body Location R iliacus & psoas L Mobilization Type Cross-Friction,Rolling, Sustained Pressure Intensity/Depth Moderate Body Position Hooklying R leg Body Location glute/piriformis Mobilization Type Cross-Friction,Rolling Intensity/Depth Moderate Body Position Sidelying Manual Techniques MET for right AI left PI and pubic shotgun Reps/Duration X6 for 6 seconds each PT-OP-R Modalities Start: 02/05/24 16:37 Freq: Status: Active Protocol: Document 05/05/24 10:46 AB (Rec: 05/05/24 12:19 AB [id number]) Hot Pack/Cold Pack Treatment Cold Pack Location R anterolateral hip Patient Position Hooklying Patient Tolerance Good PT-OP-T Assessment and Plan Start: 02/05/24 16:37 Freq: Status: Active Protocol: Document 05/05/24 10:46 AB (Rec: 05/05/24 12:19 AB [id number]) Physical Therapy Assessment Goals activity Short Term Goal (STG) Pt will be able to return to walks of at least .5 mile w/o inc pain w/o AD. 02/27/24: unable at this time due to L foot pain in weight bearing and xray calcaneal spur. 03/12/24: still unable to WB into L ankle well. 03/17-did 15 min and felt okay;L ankle more limitor 04/07 -has been inc but not counting how far STG Duration achieved 04/24 [facility] Goal (LTG) Pt will be able to return to walks of at least 2 mile w/o inc pain w/o AD. 04/24-has been able to go for about 20 min LTG Duration 06/27 mobility Short Term Goal (STG) Pt will be able to get in /out of car w/o inc pain STG Duration 05/23 Scale Technician Goal (LTG) Pt will be able to cut toe nails, cross legs, put on socks w/o feeling of loss of mobility 03/12/24: can don socks by putting foot on bed deep knee flexion, very tight unable to cross R leg over L thigh. Initiated R LE garcia taps to start progress range. 03/17-inc ease w/nails, can put on socks; cannot cross R leg still 04/07 can cut toe nails but lean over, can put on socks w/ o issue, slowly getting more ROM for leg cross 04/24-socks okay,toenails better LTG Duration 06/27 strength Short Term Goal (STG) Pt will be indep w/HEP 03/17-pt occ compliant w/HEP; attempting to resume standing work again 04/07 still been doing well with exercises 04/24-avoided exercises d/t tendonitis STG Duration 05/23 [facility] Goal (LTG) Pt will score at least 4+/5 on all LE MMT to show improved strength and stability to allow doing typical daily activities and return to work w/o limitation 03/17-advancing 04/07-improved LTG Duration 06/27 LEFS Impairment 26 Short Term Goal (STG) Pt will score at least 45 on LEFS to show improved functional ability. 03/17-limited by ankle 04/07- 04/24- STG Duration 04/17-improving slwoly Scale Technician Goal (LTG) Pt will score at least 58 on LEFS to show improved functional ability. LTG Duration 06/27 Assessment Summary Assessment Patient rates right hip pain 2 /10 at hip 4-5/10 lifting LE onto bolster for ice end of session. Physical Therapy Plan Frequency and Duration Frequency of Treatment 1-2x/wk Duration of treatment (weeks) 8 Plan of Care Start Date 04/24/24 Plan of Care End Date 06/27/24 Next Visit Focus/Plan Next Note Type Treatment Note Next Visit Plan work on standing strength and functional strength; gradually work on balance; manual to improve hip range careful w/flex activties
--- NOTE | 2024-05-07 12:25 | PT.OTN ---
Current Diagnoses Unilateral primary osteoarthritis, right hip (05/07/24) Pain in right hip (05/07/24) Encounter for other preprocedural examination (05/07/24) Physical Therapy Treatment Note PT-OP-A Visit Information Start: 02/05/24 16:37 Freq: Status: Active Protocol: Document 05/07/24 11:35 SP (Rec: 05/07/24 12:28 SP [id number]) Out-Patient Physical Therapy Visit Information Visit Information Visit Type Treatment Note Visit Start Time 11:35 Visit Stop Time 12:25 Visit Number 18 (5/10 since PN) Number of NUT SORTER OPERATOR Visits 2 Evaluation Information Evaluation Date 02/11/24 Precautions Precautions December 25 2023: R Ant DEIDRA 02/21/24: L foot pain xray: impression: No acute bony abnormality, Calcaneal spur. PT-OP-B Current Condition Start: 02/05/24 16:37 Freq: Status: Active Protocol: Document 02/11/24 12:30 [facility] (Rec: 02/11/24 15:17 [facility] [id number]) Current Condition History of Current Condition Onset Date December 25 2023 Current Complaints R ant DEIDRA History of Current Condition Pt reports pain and numbness in R thigh since R DEIDRA. Doctor said at about 6 weeks, the numbness starts to heal slowly . Other than that, hip seems ok. She walked up to the football field and sat on it and walked back home and the next day got really nauseas and went to ER and had COVID. Pt reports she is cleared to turn leg to side. Knee was painful prior to sx and after surgery, it has been better and is worried about pushing range to avoid hurting knee. Can't clip toe nails. Pt reports she is cleared to move anyway now. Xrays looked good . chronic hx of B hip pain and R knee pain w/recent R sided pain worsening. OVerall feels like it is healing well. Spent 1 night in hospital. She was given gabapentin but it made her sleepy and it didn't help w/pain. pt reports she recently (about last week) gave up cane/walker. She still sits on a chair in tub. having an easier time getting socks on but does still struggle. Has noticed L achilles limitingher when attempting to go for short walks liek a few blocks. Pt feels weak Treatment Goals Patient/Caregiver Goals be able to move leg to get toenails trimmed/get socks on easier, be able to go for long walks (flat [place] 4miles); improve RLE flexibility (like cross leg) PT-OP-C Subjective Start: 02/05/24 16:37 Freq: Status: Active Protocol: Document 05/07/24 11:35 SP (Rec: 05/07/24 12:28 SP [id number]) OP-PT Subjective Patient Comments Patient Comments Pt reports doesn't feel less or worse pain after PT sessions. Feels the exercises the resisted ABD, STS and calf stretch isn't causing any pain. Still R anterior hip pain R LE in/out car and helping roll over in bed the worst so having to provide support RLE in/out car with UE support needed for pain reduction. PT-OP-D Balance Start: 02/05/24 16:37 Freq: Status: Active Protocol: Document 04/24/24 08:19 [facility] (Rec: 04/24/24 09:04 [facility] [id number]) Balance Tests Single Limb Standing Single Limb- Right 6 sec Single Limb- Left 4 sec PT-OP-G Mobility & Gait Start: 02/05/24 16:37 Freq: Status: Active Protocol: Document 02/11/24 12:30 [facility] (Rec: 02/11/24 15:17 [facility] [id number]) OP Gait Assessment Comments Gait Comments stiff amb, no push off or ext B hips, WBOS, lat leaning PT-OP-K Range of Motion Start: 02/05/24 16:37 Freq: Status: Active Protocol: Document 02/11/24 12:30 [facility] (Rec: 02/11/24 15:17 [facility] [id number]) Hip Goniometric Range of Motion Hip Right Active Flexion w/Knee Flexed 80 Straight Leg Raise 49 Abduction 16 Internal Rotation 24 External Rotation 5 Comments tightness of R scar Left Active Flexion w/Knee Flexed 101 Straight Leg Raise 50 Abduction 18 Internal Rotation 17 External Rotation 8 PT-OP-M Strength Start: 02/05/24 16:37 Freq: Status: Active Protocol: Document 04/24/24 08:19 [facility] (Rec: 04/24/24 09:04 [facility] [id number]) Hip Strength Hip Manual Muscle Testing Right Flexion (L2) 3+ Fair+ Abduction 3 Fair External Rotation 4 Good Internal Rotation 5 Normal Comments pain w/flex & abd Left Flexion (L2) 4 Good Abduction 4+ Good+ External Rotation 4 Good Internal Rotation 5 Normal Knee Strength Knee Manual Muscle Testing Right Flexion (S2) 5 Normal Extension (L3) 4 Good Left Flexion (S2) 5 Normal Extension (L3) 5 Normal Ankle/Foot Strength Ankle and Foot Manual Muscle Testing Right Dorsiflexion (L4) 5 Normal Plantarflexion (S1) 5 Normal Comments PF tested seated Left Dorsiflexion (L4) 5 Normal Plantarflexion (S1) 5 Normal PT-OP-Q Treatments Start: 02/05/24 16:37 Freq: Status: Active Protocol: Document 05/07/24 11:35 SP (Rec: 05/07/24 12:28 SP [id number]) Therapeutic Exercises Sitting Exercises seated hip abd with band Sitting Exercise Name HEP Side bilateral Resistance level 3 band tied above knees Reps/Minutes one minute X 1 Comments pnfree reported Standing Exercises retro stepping with band Side bilateral Resistance level 3 deering green band at shins Reps/Minutes 20 SH only tolerate. X10 step without pain Comments cued tall over R stance Leg, TA & glut fac not recruit adductor& hip flexor side stepping with band Side bilateral Resistance level green band at shins Reps/Minutes 10 ft x2 laps Comments cued PPT & TA for decreased anterior R hip discomfort recruitment step down Standing Exercise Name w/backwards step up Side right Resistance stationary RLE, step back LLE Equipment Used 6 in step Reps/Minutes 10 Comments cues knee position & glut into full stand step up Standing Exercise Name 1. lat 2. fwd Side right Equipment Used 6 in, mod cues touch rail for support Reps/Minutes 10 ea Comments cues full knee ext and glut drive /c TA fac Manual Therapy Treatment Consent Patient gave verbal consent for manual Yes treatment Soft Tissue Mobilization hip flexor Body Location R iliacus & psoas L Mobilization Type Cross-Friction,Rolling, Sustained Pressure Intensity/Depth Moderate Body Position Hooklying Scar R anterior hip Mobilization Type Rolling Body Position Hooklying R leg Body Location Prox quad, TFL, adductor Mobilization Type Rolling,Sustained Pressure, Other Intensity/Depth Moderate Body Position Supine Comments STMs then MWM hip IR/ER PT-OP-R Modalities Start: 02/05/24 16:37 Freq: Status: Active Protocol: Document 05/05/24 10:46 AB (Rec: 05/05/24 12:19 AB [id number]) Hot Pack/Cold Pack Treatment Cold Pack Location R anterolateral hip Patient Position Hooklying Patient Tolerance Good PT-OP-T Assessment and Plan Start: 02/05/24 16:37 Freq: Status: Active Protocol: Document 05/07/24 11:35 SP (Rec: 05/07/24 12:28 SP [id number]) Physical Therapy Assessment Goals activity Short Term Goal (STG) Pt will be able to return to walks of at least .5 mile w/o inc pain w/o AD. 02/27/24: unable at this time due to L foot pain in weight bearing and xray calcaneal spur. 03/12/24: still unable to WB into L ankle well. 03/17-did 15 min and felt okay;L ankle more limitor 04/07 -has been inc but not counting how far STG Duration achieved 04/24 Alf Goal (LTG) Pt will be able to return to walks of at least 2 mile w/o inc pain w/o AD. 04/24-has been able to go for about 20 min LTG Duration 06/27 mobility Short Term Goal (STG) Pt will be able to get in /out of car w/o inc pain STG Duration 05/23 [facility] Goal (LTG) Pt will be able to cut toe nails, cross legs, put on socks w/o feeling of loss of mobility 03/12/24: can don socks by putting foot on bed deep knee flexion, very tight unable to cross R leg over L thigh. Initiated R LE garcia taps to start progress range. 03/17-inc ease w/nails, can put on socks; cannot cross R leg still 04/07 can cut toe nails but lean over, can put on socks w/ o issue, slowly getting more ROM for leg cross 04/24-socks okay,toenails better LTG Duration 06/27 strength Short Term Goal (STG) Pt will be indep w/HEP 03/17-pt occ compliant w/HEP; attempting to resume standing work again 04/07 still been doing well with exercises 04/24-avoided exercises d/t tendonitis STG Duration 05/23 [facility] Goal (LTG) Pt will score at least 4+/5 on all LE MMT to show improved strength and stability to allow doing typical daily activities and return to work w/o limitation 03/17-advancing 04/07-improved LTG Duration 06/27 LEFS Impairment 26 Short Term Goal (STG) Pt will score at least 45 on LEFS to show improved functional ability. 03/17-limited by ankle 04/07- 04/24- STG Duration 04/17-improving slwoly Core Winder Goal (LTG) Pt will score at least 58 on LEFS to show improved functional ability. LTG Duration 06/27 Assessment Summary Assessment Pt reports 08/18 arrival. Report 07/18 anterior R hip during mobility legs off table and steps post manual. Cues continue required for R knee extension, PPT and glut drive to support anterior hip discomfort neutral positioning support during mobility. Physical Therapy Plan Frequency and Duration Frequency of Treatment 1-2x/wk Duration of treatment (weeks) 8 Plan of Care Start Date 04/24/24 Plan of Care End Date 06/27/24 Therapeutic Interventions Therapeutic Interventions Balance Training,Gait Training ,Home Exercise Program,Joint Mobilizations,Manual Therapy, Neuromuscular Re-education, Orthotic/Prosthetic Management ,Patient/Caregiver Education, Self-Care/Home Management,Soft Tissue Mobilization,Taping, Therapeutic Activities, Therapeutic Exercises Modalities Cold Pack/Ice Massage,Electric Stimulation,Hot Packs Next Visit Focus/Plan Next Note Type Treatment Note Next Visit Plan Continue hip and trunk positioning alignment during mobililty. POC: work on standing strength and functional strength; gradually work on balance; manual to improve hip range careful w/flex activties
--- NOTE | 2024-05-13 11:38 | PT.OTN ---
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 PT-OP-B Current Condition Start: 02/05/24 16:37 Freq: Status: Active Protocol: Document 02/11/24 12:30 [facility] (Rec: 02/11/24 15:17 [facility] [id number]) Current Condition History of Current Condition Onset Date December 25 2023 Current Complaints R ant DEIDRA History of Current Condition Pt reports pain and numbness in R thigh since R DEIDRA. Doctor said at about 6 weeks, the numbness starts to heal slowly . Other than that, hip seems ok. She walked up to the football field and sat on it and walked back home and the next day got really nauseas and went to ER and had COVID. Pt reports she is cleared to turn leg to side. Knee was painful prior to sx and after surgery, it has been better and is worried about pushing range to avoid hurting knee. Can't clip toe nails. Pt reports she is cleared to move anyway now. Xrays looked good . chronic hx of B hip pain and R knee pain w/recent R sided pain worsening. OVerall feels like it is healing well. Spent 1 night in hospital. She was given gabapentin but it made her sleepy and it didn't help w/pain. pt reports she recently (about last week) gave up cane/walker. She still sits on a chair in tub. having an easier time getting socks on but does still struggle. Has noticed L achilles limitingher when attempting to go for short walks liek a few blocks. Pt feels weak Treatment Goals Patient/Caregiver Goals be able to move leg to get toenails trimmed/get socks on easier, be able to go for long walks (flat [place] 4miles); improve RLE flexibility (like cross leg) PT-OP-C Subjective Start: 02/05/24 16:37 Freq: Status: Active Protocol: Document 05/13/24 10:47 SP (Rec: 05/13/24 12:16 SP [id number]) OP-PT Subjective Patient Comments Patient Comments Pt arrives with reports continued pain anterior R hip/ groin pain especially lifting leg on bed, in/out car and recently stepping down off curb with LLE. She is doing exercises can tolerate. Saw her physician recently and awaiting schedule appt for cortizone injection to R distal psoas hoping will help with pain and mobility support . PT-OP-D Balance Start: 02/05/24 16:37 Freq: Status: Active Protocol: Document 04/24/24 08:19 [facility] (Rec: 04/24/24 09:04 [facility] [id number]) Balance Tests Single Limb Standing Single Limb- Right 6 sec Single Limb- Left 4 sec PT-OP-G Mobility & Gait Start: 02/05/24 16:37 Freq: Status: Active Protocol: Document 02/11/24 12:30 [facility] (Rec: 02/11/24 15:17 [facility] [id number]) OP Gait Assessment Comments Gait Comments stiff amb, no push off or ext B hips, WBOS, lat leaning PT-OP-K Range of Motion Start: 02/05/24 16:37 Freq: Status: Active Protocol: Document 02/11/24 12:30 [facility] (Rec: 02/11/24 15:17 [facility] [id number]) Hip Goniometric Range of Motion Hip Right Active Flexion w/Knee Flexed 80 Straight Leg Raise 49 Abduction 16 Internal Rotation 24 External Rotation 5 Comments tightness of R scar Left Active Flexion w/Knee Flexed 101 Straight Leg Raise 50 Abduction 18 Internal Rotation 17 External Rotation 8 PT-OP-M Strength Start: 02/05/24 16:37 Freq: Status: Active Protocol: Document 04/24/24 08:19 [facility] (Rec: 04/24/24 09:04 [facility] [id number]) Hip Strength Hip Manual Muscle Testing Right Flexion (L2) 3+ Fair+ Abduction 3 Fair External Rotation 4 Good Internal Rotation 5 Normal Comments pain w/flex & abd Left Flexion (L2) 4 Good Abduction 4+ Good+ External Rotation 4 Good Internal Rotation 5 Normal Knee Strength Knee Manual Muscle Testing Right Flexion (S2) 5 Normal Extension (L3) 4 Good Left Flexion (S2) 5 Normal Extension (L3) 5 Normal Ankle/Foot Strength Ankle and Foot Manual Muscle Testing Right Dorsiflexion (L4) 5 Normal Plantarflexion (S1) 5 Normal Comments PF tested seated Left Dorsiflexion (L4) 5 Normal Plantarflexion (S1) 5 Normal PT-OP-Q Treatments Start: 02/05/24 16:37 Freq: Status: Active Protocol: Document 05/13/24 10:47 SP (Rec: 05/13/24 12:16 SP [id number]) Therapeutic Exercises Prone Exercises quad stretch Prone Exercise Name R knee flexion Side right Resistance AROM knee flexion, head rested on arms Reps/Minutes 10 SH x10 Comments Cued TA, good feedback gentle quad stretch Sitting Exercises seated hip abd with band Sitting Exercise Name HEP Side bilateral Resistance level 3 band above knees Equipment Used front of chair Reps/Minutes one minute x1, then 15 reps Comments pnfree reported Standing Exercises retro stepping with band Side bilateral Resistance level 3 beaver green band at shins Equipment Used light contact rail Reps/Minutes 10 ft x3 laps- pnfree Comments cued tall over R stance Leg, TA- no pain side stepping with band Standing Exercise Name Hold 05/13/24 Side bilateral Resistance level green band at shins Equipment Used light rail support Reps/Minutes 1 step then stopped due to anterolateral R hip pain step down Standing Exercise Name w/backwards step up Side bilateral Resistance stationary RLE, step back LLE Equipment Used light contact rail as needed forx Reps/Minutes 4 step x10 each, 6 step x5 Comments cues TA and glut activation ecc & con sit to stand Standing Exercise Name HEP Side bilateral Resistance lvl 3 at thighs Equipment Used arms front Reps/Minutes X10 Comments cued slower descend sit full sit to chair Manual Therapy Treatment Consent Patient gave verbal consent for manual Yes treatment Soft Tissue Mobilization hip flexor Body Location R prox iliacus, R prox psoas Mobilization Type Cross-Friction,Rolling, Sustained Pressure Intensity/Depth Moderate Body Position Hooklying Comments STMs R leg Body Location R: Prox quad, TFL, adductor, Obturator Externus Mobilization Type Rolling,Sustained Pressure, Other Intensity/Depth Moderate Body Position Supine Comments STMs then MWM hip IR/ER (R knee in flexion & extension) PT-OP-R Modalities Start: 02/05/24 16:37 Freq: Status: Active Protocol: Document 05/13/24 10:47 SP (Rec: 05/13/24 12:16 SP [id number]) Hot Pack/Cold Pack Treatment Cold Pack Location R anterolateral hip Patient Position Hooklying Patient Tolerance Good Comments 8 min end tx PT-OP-T Assessment and Plan Start: 02/05/24 16:37 Freq: Status: Active Protocol: Document 05/13/24 10:47 SP (Rec: 05/13/24 12:16 SP [id number]) Physical Therapy Assessment Goals activity Short Term Goal (STG) Pt will be able to return to walks of at least .5 mile w/o inc pain w/o AD. 02/27/24: unable at this time due to L foot pain in weight bearing and xray calcaneal spur. 03/12/24: still unable to WB into L ankle well. 03/17-did 15 min and felt okay;L ankle more limitor 04/07 -has been inc but not counting how far STG Duration achieved 04/24 Merchant Miller Goal (LTG) Pt will be able to return to walks of at least 2 mile w/o inc pain w/o AD. 04/24-has been able to go for about 20 min LTG Duration 06/27 mobility Short Term Goal (STG) Pt will be able to get in /out of car w/o inc pain STG Duration 05/23 Merchant Miller Goal (LTG) Pt will be able to cut toe nails, cross legs, put on socks w/o feeling of loss of mobility 03/12/24: can don socks by putting foot on bed deep knee flexion, very tight unable to cross R leg over L thigh. Initiated R LE garcia taps to start progress range. 03/17-inc ease w/nails, can put on socks; cannot cross R leg still 04/07 can cut toe nails but lean over, can put on socks w/ o issue, slowly getting more ROM for leg cross 04/24-socks okay,toenails better LTG Duration 06/27 strength Short Term Goal (STG) Pt will be indep w/HEP 03/17-pt occ compliant w/HEP; attempting to resume standing work again 04/07 still been doing well with exercises 04/24-avoided exercises d/t tendonitis STG Duration 05/23 Intermediate Goal (LTG) Pt will score at least 4+/5 on all LE MMT to show improved strength and stability to allow doing typical daily activities and return to work w/o limitation 03/17-advancing 04/07-improved LTG Duration 06/27 LEFS Impairment 26 Short Term Goal (STG) Pt will score at least 45 on LEFS to show improved functional ability. 03/17-limited by ankle 04/07- 04/24- STG Duration 04/17-improving slwoly Merchant Miller Goal (LTG) Pt will score at least 58 on LEFS to show improved functional ability. LTG Duration 06/27 Assessment Summary Assessment Pt reports R anterior hip pain reduction post manual 01/15 to 08/18. But still discomfort moving leg to edge of table. Attempted resisted side stepping but caused pain, instructed stop and changed direction retrop stepping with cuing TA and posture without pain but weakness in R hip. Improved each LE forward step down 4>6 step with light support on rail end tx improved anterior hip mobility with reduction spasm anterior hip cues for glut and TA activation. Initiated prone quad stretch/ R knee flexion AROM hold, no pain. 08/18 end tx post modality Physical Therapy Plan Frequency and Duration Frequency of Treatment 1-2x/wk Duration of treatment (weeks) 8 Plan of Care Start Date 04/24/24 Plan of Care End Date 06/27/24 Therapeutic Interventions Therapeutic Interventions Balance Training,Gait Training ,Home Exercise Program,Joint Mobilizations,Manual Therapy, Neuromuscular Re-education, Orthotic/Prosthetic Management ,Patient/Caregiver Education, Self-Care/Home Management,Soft Tissue Mobilization,Taping, Therapeutic Activities, Therapeutic Exercises Modalities Cold Pack/Ice Massage,Electric Stimulation,Hot Packs Next Visit Focus/Plan Next Note Type Treatment Note Next Visit Plan Assess response to step downs, curb mgt and in/out car. R hip injection. POC: Continue hip and trunk positioning alignment during mobililty. POC: work on standing strength and functional strength; gradually work on balance; manual to improve hip range careful w/flex activties
--- NOTE | 2024-05-22 11:32 | PT.OTN ---
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 Doctor said at about 6 weeks, the numbness starts to heal slowly . Other than that, hip seems ok. She walked up to the football field and sat on it and walked back home and the next day got really nauseas and went to ER and had COVID. Pt reports she is cleared to turn leg to side. Knee was painful prior to sx and after surgery, it has been better and is worried about pushing range to avoid hurting knee. Can't clip toe nails. Pt reports she is cleared to move anyway now. Xrays looked good . chronic hx of B hip pain and R knee pain w/recent R sided pain worsening. OVerall feels like it is healing well. Spent 1 night in hospital. She was given gabapentin but it made her sleepy and it didn't help w/pain. pt reports she recently (about last week) gave up cane/walker. She still sits on a chair in tub. having an easier time getting socks on but does still struggle. Has noticed L achilles limitingher when attempting to go for short walks liek a few blocks. Pt feels weak Treatment Goals Patient/Caregiver Goals be able to move leg to get toenails trimmed/get socks on easier, be able to go for long walks (flat [place] 4miles); improve RLE flexibility (like cross leg) PT-OP-C Subjective Start: 02/05/24 16:37 Freq: Status: Active Protocol: Document 05/22/24 08:17 [facility] (Rec: 05/22/24 11:32 [facility] [id number]) OP-PT Subjective Patient Comments Patient Comments Pt reports feeling better with in/out of car and bed w/ helping her leg w/hand. A lot of the pain in lat in hip and does get some groin pain too Patient Questionnaires Lower Extremity Functional Scale LEFS Score 29 PT-OP-D Balance Start: 02/05/24 16:37 Freq: Status: Active Protocol: Document 05/22/24 08:17 [facility] (Rec: 05/22/24 11:32 [facility] [id number]) Balance Tests Single Limb Standing Single Limb- Right 2 sec Single Limb- Left 4 sec PT-OP-G Mobility & Gait Start: 02/05/24 16:37 Freq: Status: Active Protocol: Document 02/11/24 12:30 [facility] (Rec: 02/11/24 15:17 [facility] [id number]) OP Gait Assessment Comments Gait Comments stiff amb, no push off or ext B hips, WBOS, lat leaning PT-OP-K Range of Motion Start: 02/05/24 16:37 Freq: Status: Active Protocol: Document 02/11/24 12:30 [facility] (Rec: 02/11/24 15:17 [facility] [id number]) Hip Goniometric Range of Motion Hip Right Active Flexion w/Knee Flexed 80 Straight Leg Raise 49 Abduction 16 Internal Rotation 24 External Rotation 5 Comments tightness of R scar Left Active Flexion w/Knee Flexed 101 Straight Leg Raise 50 Abduction 18 Internal Rotation 17 External Rotation 8 PT-OP-M Strength Start: 02/05/24 16:37 Freq: Status: Active Protocol: Document 05/22/24 08:17 [facility] (Rec: 05/22/24 11:32 [facility] [id number]) Hip Strength Hip Manual Muscle Testing Right Flexion (L2) 3+ Fair+ Abduction 3+ Fair+ External Rotation 4 Good Internal Rotation 5 Normal Comments pain w/flex & abd, ER Left Flexion (L2) 5 Normal Abduction 4+ Good+ External Rotation 4+ Good+ Internal Rotation 5 Normal Knee Strength Knee Manual Muscle Testing Right Flexion (S2) 5 Normal Extension (L3) 5 Normal Left Flexion (S2) 5 Normal Extension (L3) 5 Normal Ankle/Foot Strength Ankle and Foot Manual Muscle Testing Right Dorsiflexion (L4) 5 Normal Plantarflexion (S1) 5 Normal Comments PF tested seated Left Dorsiflexion (L4) 5 Normal Plantarflexion (S1) 5 Normal PT-OP-Q Treatments Start: 02/05/24 16:37 Freq: Status: Active Protocol: Document 05/22/24 08:17 [facility] (Rec: 05/22/24 11:32 [facility] [id number]) Therapeutic Exercises Standing Exercises side stepping with band Side bilateral squat Standing Exercise Name partial range Side bilateral Resistance arms across chest Reps/Minutes 10 ea Comments comfortable range step down Standing Exercise Name w/backwards step up Side bilateral Equipment Used rail prn ; 5 in step Reps/Minutes 10 Comments cues control step up Standing Exercise Name 1. lat 2. fwd Side right Equipment Used 6 in occ rail support Reps/Minutes 10 ea Comments cues control Other Exercises isometrics Other Exercise Name B LE MMT Side bilateral Manual Therapy Treatment Consent Patient gave verbal consent for manual Yes treatment Soft Tissue Mobilization hip flexor Body Location R distal iliopsoas Mobilization Type Cross-Friction,Rolling, Sustained Pressure Intensity/Depth Moderate Body Position Hooklying Comments STMs R leg Body Location R ITB and TFL Mobilization Type Rolling,Sustained Pressure, Other Intensity/Depth Moderate Body Position Supine Joint Mobilizations sacrum Comments R caudal and R UPA c/r w/ER innominate Comments R ER prone and hooklying c/r, caudal R, flex R c/r hip Comments R inf c/r, R hip on axis c/r PT-OP-R Modalities Start: 02/05/24 16:37 Freq: Status: Active Protocol: Document 05/13/24 10:47 SP (Rec: 05/13/24 12:16 SP [id number]) Hot Pack/Cold Pack Treatment Cold Pack Location R anterolateral hip Patient Position Hooklying Patient Tolerance Good Comments 8 min end tx PT-OP-T Assessment and Plan Start: 02/05/24 16:37 Freq: Status: Active Protocol: Document 05/22/24 08:17 [facility] (Rec: 05/22/24 11:32 [facility] [id number]) Physical Therapy Assessment Goals activity Short Term Goal (STG) Pt will be able to return to walks of at least .5 mile w/o inc pain w/o AD. 02/27/24: unable at this time due to L foot pain in weight bearing and xray calcaneal spur. 03/12/24: still unable to WB into L ankle well. 03/17-did 15 min and felt okay;L ankle more limitor 04/07 -has been inc but not counting how far STG Duration achieved 04/24 Mcc Goal (LTG) Pt will be able to return to walks of at least 2 mile w/o inc pain w/o AD. 04/24-has been able to go for about 20 min LTG Duration achieved 05/22 mobility Short Term Goal (STG) Pt will be able to get in /out of car w/o inc pain 05/22-better w/UE lifting STG Duration 05/23 Planning Advisor Goal (LTG) Pt will be able to cut toe nails, cross legs, put on socks w/o feeling of loss of mobility 03/12/24: can don socks by putting foot on bed deep knee flexion, very tight unable to cross R leg over L thigh. Initiated R LE garcia taps to start progress range. 03/17-inc ease w/nails, can put on socks; cannot cross R leg still 04/07 can cut toe nails but lean over, can put on socks w/ o issue, slowly getting more ROM for leg cross 04/24-socks okay,toenails better 05/22-some pain w/socks, toenails ok if bend fwd, can not cross legs actively but can passively comfortably LTG Duration 06/27 strength Short Term Goal (STG) Pt will be indep w/HEP 03/17-pt occ compliant w/HEP; attempting to resume standing work again 04/07 still been doing well with exercises 04/24-avoided exercises d/t tendonitis 05/22-been compliant w/ stretches STG Duration 05/23 Planning Advisor Goal (LTG) Pt will score at least 4+/5 on all LE MMT to show improved strength and stability to allow doing typical daily activities and return to work w/o limitation 03/17-advancing 04/07-improved 05/22-slowly improving LTG Duration 06/27 LEFS Impairment 26 Short Term Goal (STG) Pt will score at least 45 on LEFS to show improved functional ability. 03/17-limited by ankle 04/07- 04/24- 05/22- STG Duration 04/17-improving slwoly Mcc Goal (LTG) Pt will score at least 58 on LEFS to show improved functional ability. LTG Duration 06/27 Assessment Summary Assessment Pt making slow progress w/PT since ankle injury and after flare up of R hip. She is walking more w/o inc pain but flex and abd activities still inc pain. Cont to advance strength, ROM and balance as able Physical Therapy Plan Frequency and Duration Frequency of Treatment 1-2x/wk Duration of treatment (weeks) 8 Plan of Care Start Date 04/24/24 Plan of Care End Date 06/27/24 Therapeutic Interventions Therapeutic Interventions Balance Training,Gait Training ,Home Exercise Program,Joint Mobilizations,Manual Therapy, Neuromuscular Re-education, Orthotic/Prosthetic Management ,Patient/Caregiver Education, Self-Care/Home Management,Soft Tissue Mobilization,Taping, Therapeutic Activities, Therapeutic Exercises Modalities Cold Pack/Ice Massage,Electric Stimulation,Hot Packs Next Visit Focus/Plan Next Note Type Treatment Note Next Visit Plan work on standing strength and functional strength; gradually work on balance; manual to improve hip range careful w/flex activties
--- NOTE | 2024-05-27 10:40 | PT.OTN ---
Current Diagnoses Unilateral primary osteoarthritis, right hip (05/27/24) Pain in right hip (05/27/24) Encounter for other preprocedural examination (05/27/24) Physical Therapy Treatment Note PT-OP-A Visit Information Start: 02/05/24 16:37 Freq: Status: Active Protocol: Document 05/27/24 08:55 AB (Rec: 05/27/24 10:40 AB [id number]) Out-Patient Physical Therapy Visit Information Visit Information Visit Type Treatment Note Visit Start Time 09:01 Visit Stop Time 09:57 Visit Number 21 Number of CELL BIOLOGIST Visits 1 Evaluation Information Evaluation Date 02/11/24 Precautions Precautions December 25 2023: R Ant DEIDRA 02/21/24: L foot pain xray: impression: No acute bony abnormality, Calcaneal spur. PT-OP-B Current Condition Start: 02/05/24 16:37 Freq: Status: Active Protocol: Document 02/11/24 12:30 [facility] (Rec: 02/11/24 15:17 [facility] [id number]) Current Condition History of Current Condition Onset Date December 25 2023 Current Complaints R ant DEIDRA History of Current Condition Pt reports pain and numbness in R thigh since R DEIDRA. Doctor said at about 6 weeks, the numbness starts to heal slowly . Other than that, hip seems ok. She walked up to the football field and sat on it and walked back home and the next day got really nauseas and went to ER and had COVID. Pt reports she is cleared to turn leg to side. Knee was painful prior to sx and after surgery, it has been better and is worried about pushing range to avoid hurting knee. Can't clip toe nails. Pt reports she is cleared to move anyway now. Xrays looked good . chronic hx of B hip pain and R knee pain w/recent R sided pain worsening. OVerall feels like it is healing well. Spent 1 night in hospital. She was given gabapentin but it made her sleepy and it didn't help w/pain. pt reports she recently (about last week) gave up cane/walker. She still sits on a chair in tub. having an easier time getting socks on but does still struggle. Has noticed L achilles limitingher when attempting to go for short walks liek a few blocks. Pt feels weak Treatment Goals Patient/Caregiver Goals be able to move leg to get toenails trimmed/get socks on easier, be able to go for long walks (flat [place] 4miles); improve RLE flexibility (like cross leg) PT-OP-C Subjective Start: 02/05/24 16:37 Freq: Status: Active Protocol: Document 05/27/24 08:55 AB (Rec: 05/27/24 10:40 AB [id number]) OP-PT Subjective Patient Comments Patient Comments Patient reports she has a cortisone shot for Sep 01 scheduled. Patient reports no improvement with pain rolling and moving and bed. Patient rates pain 3/10 lat/ant right hip. PT-OP-D Balance Start: 02/05/24 16:37 Freq: Status: Active Protocol: Document 05/22/24 08:17 [facility] (Rec: 05/22/24 11:32 [facility] [id number]) Balance Tests Single Limb Standing Single Limb- Right 2 sec Single Limb- Left 4 sec PT-OP-G Mobility & Gait Start: 02/05/24 16:37 Freq: Status: Active Protocol: Document 02/11/24 12:30 [facility] (Rec: 02/11/24 15:17 [facility] [id number]) OP Gait Assessment Comments Gait Comments stiff amb, no push off or ext B hips, WBOS, lat leaning PT-OP-K Range of Motion Start: 02/05/24 16:37 Freq: Status: Active Protocol: Document 02/11/24 12:30 [facility] (Rec: 02/11/24 15:17 [facility] [id number]) Hip Goniometric Range of Motion Hip Right Active Flexion w/Knee Flexed 80 Straight Leg Raise 49 Abduction 16 Internal Rotation 24 External Rotation 5 Comments tightness of R scar Left Active Flexion w/Knee Flexed 101 Straight Leg Raise 50 Abduction 18 Internal Rotation 17 External Rotation 8 PT-OP-M Strength Start: 02/05/24 16:37 Freq: Status: Active Protocol: Document 05/22/24 08:17 [facility] (Rec: 05/22/24 11:32 [facility] [id number]) Hip Strength Hip Manual Muscle Testing Right Flexion (L2) 3+ Fair+ Abduction 3+ Fair+ External Rotation 4 Good Internal Rotation 5 Normal Comments pain w/flex & abd, ER Left Flexion (L2) 5 Normal Abduction 4+ Good+ External Rotation 4+ Good+ Internal Rotation 5 Normal Knee Strength Knee Manual Muscle Testing Right Flexion (S2) 5 Normal Extension (L3) 5 Normal Left Flexion (S2) 5 Normal Extension (L3) 5 Normal Ankle/Foot Strength Ankle and Foot Manual Muscle Testing Right Dorsiflexion (L4) 5 Normal Plantarflexion (S1) 5 Normal Comments PF tested seated Left Dorsiflexion (L4) 5 Normal Plantarflexion (S1) 5 Normal PT-OP-Q Treatments Start: 02/05/24 16:37 Freq: Status: Active Protocol: Document 05/27/24 08:55 AB (Rec: 05/27/24 10:40 AB [id number]) Therapeutic Exercises Supine Exercises bridge Side bilateral Reps/Minutes 15x Single KFO Side bilateral Equipment Used L2 Reps/Minutes 15 Comments cues neutral pelvis, core Sidelying Exercises hip abduction Side right Resistance AROM Reps/Minutes X15 Comments tactile cues for leg alignment Sitting Exercises seated hip abd with band Sitting Exercise Name HEP Side bilateral Resistance level 3 band above knees Equipment Used front of chair Reps/Minutes 45 sec then one minute x1, then 15 reps Standing Exercises side stepping with band Side bilateral Resistance level 3 band tied above knees Reps/Minutes 2 min Comments with UE support step up Standing Exercise Name 1. fwd Side right Equipment Used 6 inch step Reps/Minutes X15 Comments monitoed for pain sit to stand Standing Exercise Name HEP Side bilateral Resistance lvl 3 at thighs Equipment Used with UE use Reps/Minutes X15 Manual Therapy Treatment Consent Patient gave verbal consent for manual Yes treatment Soft Tissue Mobilization hip flexor Body Location illiopsoas Mobilization Type Cross-Friction,Rolling, Sustained Pressure Intensity/Depth Moderate Body Position Hooklying Neuro Re-Education Treatment Balance Activities tandem Details Right LE fwd eyes closed Reps/Duration X5 Comments CGA hands above bars Marching Details on blue cushion Reps/Duration X10 Comments CGA hands above bars step up taps Details 6 inch step not arelne 2 inch block arlene Reps/Duration X10 Comments hands above bars close supervision to CGA SLS Comments Right LE X 5 CGA without UE use PT-OP-R Modalities Start: 02/05/24 16:37 Freq: Status: Active Protocol: Document 05/27/24 08:55 AB (Rec: 05/27/24 10:40 AB [id number]) Hot Pack/Cold Pack Treatment Cold Pack Location R anterolateral hip Patient Position Hooklying Comments 10 min end tx PT-OP-T Assessment and Plan Start: 02/05/24 16:37 Freq: Status: Active Protocol: Document 05/27/24 08:55 AB (Rec: 05/27/24 10:40 AB [id number]) Physical Therapy Assessment Goals activity Short Term Goal (STG) Pt will be able to return to walks of at least .5 mile w/o inc pain w/o AD. 02/27/24: unable at this time due to L foot pain in weight bearing and xray calcaneal spur. 03/12/24: still unable to WB into L ankle well. 03/17-did 15 min and felt okay;L ankle more limitor 04/07 -has been inc but not counting how far STG Duration achieved 04/24 Intermediate Goal (LTG) Pt will be able to return to walks of at least 2 mile w/o inc pain w/o AD. 04/24-has been able to go for about 20 min LTG Duration achieved 05/22 mobility Short Term Goal (STG) Pt will be able to get in /out of car w/o inc pain 05/22-better w/UE lifting STG Duration 05/23 Kettle Operator Goal (LTG) Pt will be able to cut toe nails, cross legs, put on socks w/o feeling of loss of mobility 03/12/24: can don socks by putting foot on bed deep knee flexion, very tight unable to cross R leg over L thigh. Initiated R LE garcia taps to start progress range. 03/17-inc ease w/nails, can put on socks; cannot cross R leg still 04/07 can cut toe nails but lean over, can put on socks w/ o issue, slowly getting more ROM for leg cross 04/24-socks okay,toenails better 05/22-some pain w/socks, toenails ok if bend fwd, can not cross legs actively but can passively comfortably LTG Duration 06/27 strength Short Term Goal (STG) Pt will be indep w/HEP 03/17-pt occ compliant w/HEP; attempting to resume standing work again 04/07 still been doing well with exercises 04/24-avoided exercises d/t tendonitis 05/22-been compliant w/ stretches STG Duration 05/23 Intermediate Goal (LTG) Pt will score at least 4+/5 on all LE MMT to show improved strength and stability to allow doing typical daily activities and return to work w/o limitation 03/17-advancing 04/07-improved 05/22-slowly improving LTG Duration 06/27 LEFS Impairment 26 Short Term Goal (STG) Pt will score at least 45 on LEFS to show improved functional ability. 03/17-limited by ankle 04/07- 04/24- 05/22- STG Duration 04/17-improving slwoly Kettle Operator Goal (LTG) Pt will score at least 58 on LEFS to show improved functional ability. LTG Duration 06/27 Assessment Summary Assessment Melissa rates pain 2/10 right hip post manual therapy and exercise. SLS limited to 3 seconds right LE without UE use this session. Physical Therapy Plan Frequency and Duration Frequency of Treatment 1-2x/wk Duration of treatment (weeks) 8 Plan of Care Start Date 04/24/24 Plan of Care End Date 06/27/24 Next Visit Focus/Plan Next Note Type Treatment Note Next Visit Plan work on standing strength and functional strength; Increase work on balance; manual to improve hip range careful w/flex activties
--- NOTE | 2024-05-29 18:04 | PT.OTN ---
Current Diagnoses Unilateral primary osteoarthritis, right hip (05/29/24) Pain in right hip (05/29/24) Encounter for other preprocedural examination (05/29/24) Physical Therapy Treatment Note PT-OP-A Visit Information Start: 02/05/24 16:37 Freq: Status: Active Protocol: Document 05/29/24 14:35 (Rec: 05/29/24 15:17 [id number]) Out-Patient Physical Therapy Visit Information Visit Information Visit Type Treatment Note Visit Note 08/18 post PN Visit Start Time 14:33 Visit Stop Time 15:13 Visit Number 22 Number of PLUMBING MANAGER Visits 2 Precautions Precautions December 25 2023: R Ant DEIDRA 02/21/24: L foot pain xray: impression: No acute bony abnormality, Calcaneal spur. PT-OP-B Current Condition Start: 02/05/24 16:37 Freq: Status: Active Protocol: Document 02/11/24 12:30 [facility] (Rec: 02/11/24 15:17 [facility] [id number]) Current Condition History of Current Condition Onset Date December 25 2023 Current Complaints R ant DEIDRA History of Current Condition Pt reports pain and numbness in R thigh since R DEIDRA. Doctor said at about 6 weeks, the numbness starts to heal slowly . Other than that, hip seems ok. She walked up to the football field and sat on it and walked back home and the next day got really nauseas and went to ER and had COVID. Pt reports she is cleared to turn leg to side. Knee was painful prior to sx and after surgery, it has been better and is worried about pushing range to avoid hurting knee. Can't clip toe nails. Pt reports she is cleared to move anyway now. Xrays looked good . chronic hx of B hip pain and R knee pain w/recent R sided pain worsening. OVerall feels like it is healing well. Spent 1 night in hospital. She was given gabapentin but it made her sleepy and it didn't help w/pain. pt reports she recently (about last week) gave up cane/walker. She still sits on a chair in tub. having an easier time getting socks on but does still struggle. Has noticed L achilles limitingher when attempting to go for short walks liek a few blocks. Pt feels weak Treatment Goals Patient/Caregiver Goals be able to move leg to get toenails trimmed/get socks on easier, be able to go for long walks (flat j [place]ann tompson 4miles); improve RLE flexibility (like cross leg) PT-OP-C Subjective Start: 02/05/24 16:37 Freq: Status: Active Protocol: Document 05/29/24 14:35 SW (Rec: 05/29/24 15:17 SW [id number]) OP-PT Subjective Patient Comments Patient Comments Pt reports been in agony at night. Pain currently 09/15 PT-OP-D Balance Start: 02/05/24 16:37 Freq: Status: Active Protocol: Document 05/22/24 08:17 [facility] (Rec: 05/22/24 11:32 [facility] [id number]) Balance Tests Single Limb Standing Single Limb- Right 2 sec Single Limb- Left 4 sec PT-OP-G Mobility & Gait Start: 02/05/24 16:37 Freq: Status: Active Protocol: Document 02/11/24 12:30 [facility] (Rec: 02/11/24 15:17 [facility] [id number]) OP Gait Assessment Comments Gait Comments stiff amb, no push off or ext B hips, WBOS, lat leaning PT-OP-K Range of Motion Start: 02/05/24 16:37 Freq: Status: Active Protocol: Document 02/11/24 12:30 [facility] (Rec: 02/11/24 15:17 [facility] [id number]) Hip Goniometric Range of Motion Hip Right Active Flexion w/Knee Flexed 80 Straight Leg Raise 49 Abduction 16 Internal Rotation 24 External Rotation 5 Comments tightness of R scar Left Active Flexion w/Knee Flexed 101 Straight Leg Raise 50 Abduction 18 Internal Rotation 17 External Rotation 8 PT-OP-M Strength Start: 02/05/24 16:37 Freq: Status: Active Protocol: Document 05/22/24 08:17 [facility] (Rec: 05/22/24 11:32 [facility] [id number]) Hip Strength Hip Manual Muscle Testing Right Flexion (L2) 3+ Fair+ Abduction 3+ Fair+ External Rotation 4 Good Internal Rotation 5 Normal Comments pain w/flex & abd, ER Left Flexion (L2) 5 Normal Abduction 4+ Good+ External Rotation 4+ Good+ Internal Rotation 5 Normal Knee Strength Knee Manual Muscle Testing Right Flexion (S2) 5 Normal Extension (L3) 5 Normal Left Flexion (S2) 5 Normal Extension (L3) 5 Normal Ankle/Foot Strength Ankle and Foot Manual Muscle Testing Right Dorsiflexion (L4) 5 Normal Plantarflexion (S1) 5 Normal Comments PF tested seated Left Dorsiflexion (L4) 5 Normal Plantarflexion (S1) 5 Normal PT-OP-Q Treatments Start: 02/05/24 16:37 Freq: Status: Active Protocol: Document 05/29/24 14:35 SW (Rec: 05/29/24 15:17 SW [id number]) Therapeutic Exercises Standing Exercises Heel raises Standing Exercise Name Heel/Toe raises Side bilateral Resistance AROM Equipment Used @ rail Comments eccentric/concentric control, UE support for safety with balance side stepping with band Side bilateral Resistance level 3 band tied above knees Reps/Minutes 2 min Comments with UE support squat Standing Exercise Name partial range Side bilateral Resistance arms across chest Reps/Minutes 10 ea Comments comfortable range step up Standing Exercise Name fwd Side right Equipment Used 4 step Reps/Minutes X15 Comments monitoed for pain sit to stand Standing Exercise Name HEP Side bilateral Resistance lvl 3 at thighs Equipment Used with UE use Reps/Minutes X15 Manual Therapy Treatment Consent Patient gave verbal consent for manual Yes treatment Soft Tissue Mobilization hip flexor Body Location illiopsoas Mobilization Type Cross-Friction,Rolling, Sustained Pressure Intensity/Depth Moderate Body Position Hooklying R leg Body Location R ITB and TFL Mobilization Type Rolling,Sustained Pressure, Other Intensity/Depth Moderate Body Position Supine Neuro Re-Education Treatment Balance Activities tandem Details Right LE fwd eyes closed Reps/Duration multiple trials Comments CGA hands above bars Marching Details on blue cushion Reps/Duration X10 ea Comments CGA hands above bars step up taps Details Foam tap Reps/Duration X10 Comments hands above bars close supervision to CGA SLS Reps/Duration multiple trials Comments Right LE PT-OP-R Modalities Start: 02/05/24 16:37 Freq: Status: Active Protocol: Document 05/27/24 08:55 AB (Rec: 05/27/24 10:40 AB [id number]) Hot Pack/Cold Pack Treatment Cold Pack Location R anterolateral hip Patient Position Hooklying Comments 10 min end tx PT-OP-T Assessment and Plan Start: 02/05/24 16:37 Freq: Status: Active Protocol: Document 05/29/24 14:35 SW (Rec: 05/29/24 15:17 [id number]) Physical Therapy Assessment Goals activity Short Term Goal (STG) Pt will be able to return to walks of at least .5 mile w/o inc pain w/o AD. 02/27/24: unable at this time due to L foot pain in weight bearing and xray calcaneal spur. 03/12/24: still unable to WB into L ankle well. 03/17-did 15 min and felt okay;L ankle more limitor 04/07 -has been inc but not counting how far STG Duration achieved 04/24 Assisted Goal (LTG) Pt will be able to return to walks of at least 2 mile w/o inc pain w/o AD. 04/24-has been able to go for about 20 min LTG Duration achieved 05/22 mobility Short Term Goal (STG) Pt will be able to get in /out of car w/o inc pain 05/22-better w/UE lifting STG Duration 05/23 Assisted Goal (LTG) Pt will be able to cut toe nails, cross legs, put on socks w/o feeling of loss of mobility 03/12/24: can don socks by putting foot on bed deep knee flexion, very tight unable to cross R leg over L thigh. Initiated R LE garcia taps to start progress range. 03/17-inc ease w/nails, can put on socks; cannot cross R leg still 04/07 can cut toe nails but lean over, can put on socks w/ o issue, slowly getting more ROM for leg cross 04/24-socks okay,toenails better 05/22-some pain w/socks, toenails ok if bend fwd, can not cross legs actively but can passively comfortably LTG Duration 06/27 strength Short Term Goal (STG) Pt will be indep w/HEP 03/17-pt occ compliant w/HEP; attempting to resume standing work again 04/07 still been doing well with exercises 04/24-avoided exercises d/t tendonitis 05/22-been compliant w/ stretches STG Duration 05/23 Assisted Goal (LTG) Pt will score at least 4+/5 on all LE MMT to show improved strength and stability to allow doing typical daily activities and return to work w/o limitation 03/17-advancing 04/07-improved 05/22-slowly improving LTG Duration 06/27 LEFS Impairment 26 Short Term Goal (STG) Pt will score at least 45 on LEFS to show improved functional ability. 03/17-limited by ankle 04/07- 04/24- 05/22- STG Duration 04/17-improving slwoly Heel Seat Trimmer Goal (LTG) Pt will score at least 58 on LEFS to show improved functional ability. LTG Duration 06/27 Assessment Summary Assessment Pt reports pain with movements lifting RLE off of the ground , getting into car, picking foot up to a standard stair height, stepping over obstacles. Pt reports pain with step up on 6 step, tolerated 4 step. Pt tolerated squats for strengthening well with no increase in symptoms. Initiated standing heel/toe raises for LE strength and carryover into balance. Physical Therapy Plan Frequency and Duration Frequency of Treatment 1-2x/wk Duration of treatment (weeks) 8 Plan of Care Start Date 04/24/24 Plan of Care End Date 06/27/24 Therapeutic Interventions Therapeutic Interventions Balance Training,Gait Training ,Home Exercise Program,Joint Mobilizations,Manual Therapy, Neuromuscular Re-education, Orthotic/Prosthetic Management ,Patient/Caregiver Education, Self-Care/Home Management,Soft Tissue Mobilization,Taping, Therapeutic Activities, Therapeutic Exercises Modalities Cold Pack/Ice Massage,Electric Stimulation,Hot Packs Next Visit Focus/Plan Next Note Type Treatment Note Next Visit Plan Pt feels increased pain in right hip with lifting RLE off ground into increasing flexion work on standing strength and functional strength; Increase work on balance; manual to improve hip range careful w/flex activties
--- NOTE | 2024-06-03 17:21 | PT.OTN ---
Current Diagnoses Unilateral primary osteoarthritis, right hip (06/03/24) Pain in right hip (06/03/24) Encounter for other preprocedural examination (06/03/24) Physical Therapy Treatment Note PT-OP-A Visit Information Start: 02/05/24 16:37 Freq: Status: Active Protocol: Document 06/03/24 11:49 (Rec: 06/03/24 12:45 [id number]) Out-Patient Physical Therapy Visit Information Visit Information Visit Type Treatment Note Visit Note 09/15 post PN PT Ana Tirso present at [facility] for followup on pt ER visit. 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 PT-OP-B Current Condition Start: 02/05/24 16:37 Freq: Status: Active Protocol: Document 02/11/24 12:30 [facility] (Rec: 02/11/24 15:17 [facility] [id number]) Current Condition History of Current Condition Onset Date December 25 2023 Current Complaints R ant DEIDRA History of Current Condition Pt reports pain and numbness in R thigh since R DEIDRA. Doctor said at about 6 weeks, the numbness starts to heal slowly . Other than that, hip seems ok. She walked up to the football field and sat on it and walked back home and the next day got really nauseas and went to ER and had COVID. Pt reports she is cleared to turn leg to side. Knee was painful prior to sx and after surgery, it has been better and is worried about pushing range to avoid hurting knee. Can't clip toe nails. Pt reports she is cleared to move anyway now. Xrays looked good . chronic hx of B hip pain and R knee pain w/recent R sided pain worsening. OVerall feels like it is healing well. Spent 1 night in hospital. She was given gabapentin but it made her sleepy and it didn't help w/pain. pt reports she recently (about last week) gave up cane/walker. She still sits on a chair in tub. having an easier time getting socks on but does still struggle. Has noticed L achilles limitingher when attempting to go for short walks liek a few blocks. Pt feels weak Treatment Goals Patient/Caregiver Goals be able to move leg to get toenails trimmed/get socks on easier, be able to go for long walks (flat [place] 4miles); improve RLE flexibility (like cross leg) PT-OP-C Subjective Start: 02/05/24 16:37 Freq: Status: Active Protocol: Document 06/03/24 11:49 (Rec: 06/03/24 12:45 [id number]) OP-PT Subjective Patient Comments Patient Comments Patient reports went to ER on Sunday05/30/24, due to pain. Pt wanted to ensure there was no infection. Pt reports ER did cat scan. Pt reports has a scheduled visit with primary doctor tomorrow. Pt reports prescribed with steroid pills in the ER, has helped with the sharp pain on right side, though is now feeling pain in the left hip. Patient reports gets in and out of vehicle for job. PT-OP-D Balance Start: 02/05/24 16:37 Freq: Status: Active Protocol: Document 05/22/24 08:17 [facility] (Rec: 05/22/24 11:32 [facility] [id number]) Balance Tests Single Limb Standing Single Limb- Right 2 sec Single Limb- Left 4 sec PT-OP-G Mobility & Gait Start: 02/05/24 16:37 Freq: Status: Active Protocol: Document 02/11/24 12:30 [facility] (Rec: 02/11/24 15:17 [facility] [id number]) OP Gait Assessment Comments Gait Comments stiff amb, no push off or ext B hips, WBOS, lat leaning PT-OP-K Range of Motion Start: 02/05/24 16:37 Freq: Status: Active Protocol: Document 02/11/24 12:30 [facility] (Rec: 02/11/24 15:17 [facility] [id number]) Hip Goniometric Range of Motion Hip Right Active Flexion w/Knee Flexed 80 Straight Leg Raise 49 Abduction 16 Internal Rotation 24 External Rotation 5 Comments tightness of R scar Left Active Flexion w/Knee Flexed 101 Straight Leg Raise 50 Abduction 18 Internal Rotation 17 External Rotation 8 PT-OP-M Strength Start: 02/05/24 16:37 Freq: Status: Active Protocol: Document 05/22/24 08:17 [facility] (Rec: 05/22/24 11:32 [facility] [id number]) Hip Strength Hip Manual Muscle Testing Right Flexion (L2) 3+ Fair+ Abduction 3+ Fair+ External Rotation 4 Good Internal Rotation 5 Normal Comments pain w/flex & abd, ER Left Flexion (L2) 5 Normal Abduction 4+ Good+ External Rotation 4+ Good+ Internal Rotation 5 Normal Knee Strength Knee Manual Muscle Testing Right Flexion (S2) 5 Normal Extension (L3) 5 Normal Left Flexion (S2) 5 Normal Extension (L3) 5 Normal Ankle/Foot Strength Ankle and Foot Manual Muscle Testing Right Dorsiflexion (L4) 5 Normal Plantarflexion (S1) 5 Normal Comments PF tested seated Left Dorsiflexion (L4) 5 Normal Plantarflexion (S1) 5 Normal PT-OP-Q Treatments Start: 02/05/24 16:37 Freq: Status: Active Protocol: Document 06/03/24 11:49 [facility] (Rec: 06/03/24 12:45 [id number]) Therapeutic Exercises Standing Exercises Stairs Standing Exercise Name reciprocal stepping Side bilateral Equipment Used 4 step, BUE assist on hand weight shift Standing Exercise Name Standing weight shifts Side bilateral Equipment Used Plinth for UE support hip abd Standing Exercise Name Hip Hike Side bilateral Manual Therapy Treatment Soft Tissue Mobilization hip flexor Body Location illiopsoas Mobilization Type Cross-Friction,Rolling, Sustained Pressure Intensity/Depth Moderate Body Position Hooklying R leg Body Location R ITB and TFL Mobilization Type Rolling,Sustained Pressure, Other Intensity/Depth Moderate Body Position Supine Self-Care/Home Management Treatment Education Patient Education Body Mechanics,Joint Protection,Pain Management, Safety Other Education x20 min PT-OP-R Modalities Start: 02/05/24 16:37 Freq: Status: Active Protocol: Document 06/03/24 11:49 [facility] (Rec: 06/03/24 12:47 [id number]) Hot Pack/Cold Pack Treatment Hot Pack Location Anterior lateral Hip Patient Position Hooklying Patient Tolerance Good Comments bolster under LE, x8 layers, levi within reach, x15 min, pt tolerated well PT-OP-T Assessment and Plan Start: 02/05/24 16:37 Freq: Status: Active Protocol: Document 06/03/24 11:49 [facility] (Rec: 06/03/24 12:45 [id number]) Physical Therapy Assessment Goals activity Short Term Goal (STG) Pt will be able to return to walks of at least .5 mile w/o inc pain w/o AD. 02/27/24: unable at this time due to L foot pain in weight bearing and xray calcaneal spur. 03/12/24: still unable to WB into L ankle well. 03/17-did 15 min and felt okay;L ankle more limitor 04/07 -has been inc but not counting how far STG Duration achieved 04/24 Alf Goal (LTG) Pt will be able to return to walks of at least 2 mile w/o inc pain w/o AD. 04/24-has been able to go for about 20 min LTG Duration achieved 05/22 mobility Short Term Goal (STG) Pt will be able to get in /out of car w/o inc pain 05/22-better w/UE lifting STG Duration 05/23 Youth Program Director Goal (LTG) Pt will be able to cut toe nails, cross legs, put on socks w/o feeling of loss of mobility 03/12/24: can don socks by putting foot on bed deep knee flexion, very tight unable to cross R leg over L thigh. Initiated R LE garcia taps to start progress range. 03/17-inc ease w/nails, can put on socks; cannot cross R leg still 04/07 can cut toe nails but lean over, can put on socks w/ o issue, slowly getting more ROM for leg cross 04/24-socks okay,toenails better 05/22-some pain w/socks, toenails ok if bend fwd, can not cross legs actively but can passively comfortably LTG Duration 06/27 strength Short Term Goal (STG) Pt will be indep w/HEP 03/17-pt occ compliant w/HEP; attempting to resume standing work again 04/07 still been doing well with exercises 04/24-avoided exercises d/t tendonitis 05/22-been compliant w/ stretches STG Duration 05/23 Youth Program Director Goal (LTG) Pt will score at least 4+/5 on all LE MMT to show improved strength and stability to allow doing typical daily activities and return to work w/o limitation 03/17-advancing 04/07-improved 05/22-slowly improving LTG Duration 06/27 LEFS Impairment 26 Short Term Goal (STG) Pt will score at least 45 on LEFS to show improved functional ability. 03/17-limited by ankle 04/07- 04/24- 05/22- STG Duration 04/17-improving slwoly Youth Program Director Goal (LTG) Pt will score at least 58 on LEFS to show improved functional ability. LTG Duration 06/27 Assessment Summary Assessment Started session with manual work for patient comfort, decrease tension, and increase mobility. Session focused on equalizing weight bearing into BLE, to normalize gait and decrease compensations. Patient has been icing regularly, trialed heat this session for symptom management , pt tolerated well, reports it was relaxing. Plan to follow-up on follow-up with Dr. Allred next session. Physical Therapy Plan Frequency and Duration Frequency of Treatment 1-2x/wk Duration of treatment (weeks) 8 Plan of Care Start Date 04/24/24 Plan of Care End Date 06/27/24 Therapeutic Interventions Therapeutic Interventions Balance Training,Gait Training ,Home Exercise Program,Joint Mobilizations,Manual Therapy, Neuromuscular Re-education, Orthotic/Prosthetic Management ,Patient/Caregiver Education, Self-Care/Home Management,Soft Tissue Mobilization,Taping, Therapeutic Activities, Therapeutic Exercises Modalities Cold Pack/Ice Massage,Electric Stimulation,Hot Packs Next Visit Focus/Plan Next Note Type Treatment Note Next Visit Plan Follow-up on apt w/ PCP and if pt was able to followup with Dr. Allred work on standing strength and functional strength; Increase work on balance; manual to improve hip range careful w/flex activties
--- NOTE | 2024-06-09 10:46 | PT.OTN ---
Current Diagnoses Unilateral primary osteoarthritis, right hip (06/09/24) Pain in right hip (06/09/24) Encounter for other preprocedural examination (06/09/24) Physical Therapy Treatment Note PT-OP-A Visit Information Start: 02/05/24 16:37 Freq: Status: Active Protocol: Document 06/09/24 08:15 AB (Rec: 06/09/24 10:45 AB [id number]) Out-Patient Physical Therapy Visit Information Visit Information Visit Type Treatment Note Visit Note 10/16 Visit Start Time 09:06 Visit Stop Time 09:47 Visit Number 24 Number of GREENSKEEPER HEAD Visits 4 Precautions Precautions December 25 2023: R Ant EDIDRA 02/21/24: L foot pain xray: impression: No acute bony abnormality, Calcaneal spur. PT-OP-B Current Condition Start: 02/05/24 16:37 Freq: Status: Active Protocol: Document 02/11/24 12:30 [facility] (Rec: 02/11/24 15:17 [facility] [id number]) Current Condition History of Current Condition Onset Date December 25 2023 Current Complaints R ant DEIDRA History of Current Condition Pt reports pain and numbness in R thigh since R DEIDRA. Doctor said at about 6 weeks, the numbness starts to heal slowly . Other than that, hip seems ok. She walked up to the football field and sat on it and walked back home and the next day got really nauseas and went to ER and had COVID. Pt reports she is cleared to turn leg to side. Knee was painful prior to sx and after surgery, it has been better and is worried about pushing range to avoid hurting knee. Can't clip toe nails. Pt reports she is cleared to move anyway now. Xrays looked good . chronic hx of B hip pain and R knee pain w/recent R sided pain worsening. OVerall feels like it is healing well. Spent 1 night in hospital. She was given gabapentin but it made her sleepy and it didn't help w/pain. pt reports she recently (about last week) gave up cane/walker. She still sits on a chair in tub. having an easier time getting socks on but does still struggle. Has noticed L achilles limitingher when attempting to go for short walks liek a few blocks. Pt feels weak Treatment Goals Patient/Caregiver Goals be able to move leg to get toenails trimmed/get socks on easier, be able to go for long walks (flat [place] 4miles); improve RLE flexibility (like cross leg) PT-OP-C Subjective Start: 02/05/24 16:37 Freq: Status: Active Protocol: Document 06/09/24 08:15 AB (Rec: 06/09/24 10:45 AB [id number]) OP-PT Subjective Patient Comments Patient Comments Patient reports she missed her MD appointment, but she spoke to surgeon, is having an injection Jun 17, now both hips are acting up equally, both sides hurt in groin when ascending stairs. Patient reports Surgeon advised no more oral steriods, but also reports continues with antiinflamitory. Patient also reports spoke with surgeon, but is not aware if surgeon has seen CT scan. Patient reports she is aware she was told hip is a little loose, but reports when she told surgeon, surgeon wasn't worried. PT-OP-D Balance Start: 02/05/24 16:37 Freq: Status: Active Protocol: Document 05/22/24 08:17 [facility] (Rec: 05/22/24 11:32 [facility] [id number]) Balance Tests Single Limb Standing Single Limb- Right 2 sec Single Limb- Left 4 sec PT-OP-G Mobility & Gait Start: 02/05/24 16:37 Freq: Status: Active Protocol: Document 02/11/24 12:30 [facility] (Rec: 02/11/24 15:17 [facility] [id number]) OP Gait Assessment Comments Gait Comments stiff amb, no push off or ext B hips, WBOS, lat leaning PT-OP-K Range of Motion Start: 02/05/24 16:37 Freq: Status: Active Protocol: Document 02/11/24 12:30 [facility] (Rec: 02/11/24 15:17 [facility] [id number]) Hip Goniometric Range of Motion Hip Right Active Flexion w/Knee Flexed 80 Straight Leg Raise 49 Abduction 16 Internal Rotation 24 External Rotation 5 Comments tightness of R scar Left Active Flexion w/Knee Flexed 101 Straight Leg Raise 50 Abduction 18 Internal Rotation 17 External Rotation 8 PT-OP-M Strength Start: 02/05/24 16:37 Freq: Status: Active Protocol: Document 05/22/24 08:17 [facility] (Rec: 05/22/24 11:32 [facility] [id number]) Hip Strength Hip Manual Muscle Testing Right Flexion (L2) 3+ Fair+ Abduction 3+ Fair+ External Rotation 4 Good Internal Rotation 5 Normal Comments pain w/flex & abd, ER Left Flexion (L2) 5 Normal Abduction 4+ Good+ External Rotation 4+ Good+ Internal Rotation 5 Normal Knee Strength Knee Manual Muscle Testing Right Flexion (S2) 5 Normal Extension (L3) 5 Normal Left Flexion (S2) 5 Normal Extension (L3) 5 Normal Ankle/Foot Strength Ankle and Foot Manual Muscle Testing Right Dorsiflexion (L4) 5 Normal Plantarflexion (S1) 5 Normal Comments PF tested seated Left Dorsiflexion (L4) 5 Normal Plantarflexion (S1) 5 Normal PT-OP-Q Treatments Start: 02/05/24 16:37 Freq: Status: Active Protocol: Document 06/09/24 08:15 AB (Rec: 06/09/24 10:45 AB [id number]) Therapeutic Exercises Sitting Exercises seated hip abd with band Sitting Exercise Name HEP Side bilateral Resistance level 3 band above knees Equipment Used front of chair Reps/Minutes one minute X 1 then X 15 without hold Therapeutic Activity Therapeutic Activity Stair training Name 6 inch steps X4 X 5 Comments Verbal cues for less quad dom pattern descending and for weight shift prior to step up and down and activating glutes when ascending. Verbal and visual cues, also Pre gait for WS lat and fwd Manual Therapy Treatment Consent Patient gave verbal consent for manual Yes treatment Soft Tissue Mobilization Bilat hips/LS Body Location glute/piriformis/ LS paraspinals Mobilization Type Cross-Friction,Rolling, Sustained Pressure Intensity/Depth Moderate Body Position Sidelying Manual Techniques MET for right AI left PI and pubic shotgun Reps/Duration X6 for 6 seconds each PT-OP-R Modalities Start: 02/05/24 16:37 Freq: Status: Active Protocol: Document 06/03/24 11:49 SW (Rec: 06/03/24 12:47 SW [id number]) Hot Pack/Cold Pack Treatment Hot Pack Location Anterior lateral Hip Patient Position Hooklying Patient Tolerance Good Comments bolster under LE, x8 layers, levi within reach, x15 min, pt tolerated well PT-OP-T Assessment and Plan Start: 02/05/24 16:37 Freq: Status: Active Protocol: Document 06/09/24 08:15 AB (Rec: 06/09/24 10:45 AB [id number]) Physical Therapy Assessment Goals activity Short Term Goal (STG) Pt will be able to return to walks of at least .5 mile w/o inc pain w/o AD. 02/27/24: unable at this time due to L foot pain in weight bearing and xray calcaneal spur. 03/12/24: still unable to WB into L ankle well. 03/17-did 15 min and felt okay;L ankle more limitor 04/07 -has been inc but not counting how far STG Duration achieved 04/24 Alf Goal (LTG) Pt will be able to return to walks of at least 2 mile w/o inc pain w/o AD. 04/24-has been able to go for about 20 min LTG Duration achieved 05/22 mobility Short Term Goal (STG) Pt will be able to get in /out of car w/o inc pain 05/22-better w/UE lifting STG Duration 05/23 Alf Goal (LTG) Pt will be able to cut toe nails, cross legs, put on socks w/o feeling of loss of mobility 03/12/24: can don socks by putting foot on bed deep knee flexion, very tight unable to cross R leg over L thigh. Initiated R LE garcia taps to start progress range. 03/17-inc ease w/nails, can put on socks; cannot cross R leg still 04/07 can cut toe nails but lean over, can put on socks w/ o issue, slowly getting more ROM for leg cross 04/24-socks okay,toenails better 05/22-some pain w/socks, toenails ok if bend fwd, can not cross legs actively but can passively comfortably LTG Duration 06/27 strength Short Term Goal (STG) Pt will be indep w/HEP 03/17-pt occ compliant w/HEP; attempting to resume standing work again 04/07 still been doing well with exercises 04/24-avoided exercises d/t tendonitis 05/22-been compliant w/ stretches STG Duration 05/23 Logistics Loss Prevention Manager Goal (LTG) Pt will score at least 4+/5 on all LE MMT to show improved strength and stability to allow doing typical daily activities and return to work w/o limitation 03/17-advancing 04/07-improved 05/22-slowly improving LTG Duration 06/27 LEFS Impairment 26 Short Term Goal (STG) Pt will score at least 45 on LEFS to show improved functional ability. 03/17-limited by ankle 04/07- 04/24- 05/22- STG Duration 04/17-improving slwoly Alf Goal (LTG) Pt will score at least 58 on LEFS to show improved functional ability. LTG Duration 06/27 Assessment Summary Assessment Patient rates bilateral hip pain 11/15 end of session. Patient able to descend stairs with a less quad dominant pattern, improved weight shift ascending and descending, reports a little less pain with ascending and descending, but not resolved. Physical Therapy Plan Frequency and Duration Frequency of Treatment 1-2x/wk Duration of treatment (weeks) 8 Plan of Care Start Date 04/24/24 Plan of Care End Date 06/27/24 Next Visit Focus/Plan Next Note Type Treatment Note Next Visit Plan Follow-up on apt w/ PCP and if pt was able to followup with Dr. Allred work on standing strength and functional strength; Increase work on balance; manual to improve hip range careful w/flex activties
--- NOTE | 2024-06-11 09:48 | PT.OTN ---
Current Diagnoses Unilateral primary osteoarthritis, right hip (06/11/24) Pain in right hip (06/11/24) Encounter for other preprocedural examination (06/11/24) Physical Therapy Treatment Note PT-OP-A Visit Information Start: 02/05/24 16:37 Freq: Status: Active Protocol: Document 06/11/24 09:15 [facility] (Rec: 06/11/24 09:48 [facility] [id number]) Out-Patient Physical Therapy Visit Information Visit Information Visit Type Discharge Summary Visit Start Time 09:06 Visit Stop Time 09:45 Visit Number 25 Number of FUEL RETROFITTING TECHNICIAN Visits 0 PT-OP-B Current Condition Start: 02/05/24 16:37 Freq: Status: Active Protocol: Document 02/11/24 12:30 [facility] (Rec: 02/11/24 15:17 [facility] [id number]) Current Condition History of Current Condition Onset Date December 25 2023 Current Complaints R ant DEIDRA History of Current Condition Pt reports pain and numbness in R thigh since R DEIDRA. Doctor said at about 6 weeks, the numbness starts to heal slowly . Other than that, hip seems ok. She walked up to the football field and sat on it and walked back home and the next day got really nauseas and went to ER and had COVID. Pt reports she is cleared to turn leg to side. Knee was painful prior to sx and after surgery, it has been better and is worried about pushing range to avoid hurting knee. Can't clip toe nails. Pt reports she is cleared to move anyway now. Xrays looked good . chronic hx of B hip pain and R knee pain w/recent R sided pain worsening. OVerall feels like it is healing well. Spent 1 night in hospital. She was given gabapentin but it made her sleepy and it didn't help w/pain. pt reports she recently (about last week) gave up cane/walker. She still sits on a chair in tub. having an easier time getting socks on but does still struggle. Has noticed L achilles limitingher when attempting to go for short walks liek a few blocks. Pt feels weak Treatment Goals Patient/Caregiver Goals be able to move leg to get toenails trimmed/get socks on easier, be able to go for long walks (flat [place] 4miles); improve RLE flexibility (like cross leg) PT-OP-C Subjective Start: 02/05/24 16:37 Freq: Status: Active Protocol: Document 06/11/24 09:15 [facility] (Rec: 06/11/24 09:48 [id number] OP-PT Subjective Patient Comments Patient Comments Pt reports frustrated d/t by the end of the day, she is limping d/t B hip pain. She She still has to help her leg into the pain. Excrutiating in lat hip. Did go to ER d/t pain. There was concern re: possible loosening in ER but talked on phone to Dr. Espinosa and he did not feel like that was the issue. She is mostly having signficant lat hip pain . L hip and knee hurting more now too. Had a massage and that did not help. Patient Reported Progress Worse PT-OP-D Balance Start: 02/05/24 16:37 Freq: Status: Active Protocol: Document 05/22/24 08:17 [facility] (Rec: 05/22/24 11:32 [id number] Balance Tests Single Limb Standing Single Limb- Right 2 sec Single Limb- Left 4 sec PT-OP-G Mobility & Gait Start: 02/05/24 16:37 Freq: Status: Active Protocol: Document 02/11/24 12:30 [facility] (Rec: 02/11/24 15:17 [id number] OP Gait Assessment Comments Gait Comments stiff amb, no push off or ext B hips, WBOS, lat leaning PT-OP-K Range of Motion Start: 02/05/24 16:37 Freq: Status: Active Protocol: Document 02/11/24 12:30 [facility] (Rec: 02/11/24 15:17 [facility] [id number]) Hip Goniometric Range of Motion Hip Right Active Flexion w/Knee Flexed 80 Straight Leg Raise 49 Abduction 16 Internal Rotation 24 External Rotation 5 Comments tightness of R scar Left Active Flexion w/Knee Flexed 101 Straight Leg Raise 50 Abduction 18 Internal Rotation 17 External Rotation 8 PT-OP-M Strength Start: 02/05/24 16:37 Freq: Status: Active Protocol: Document 06/11/24 09:15 [facility] (Rec: 06/11/24 09:48 [facility] [id number]) Hip Strength Hip Manual Muscle Testing Right Flexion (L2) 3- Fair- External Rotation 4- Good- Internal Rotation 4- Good- Comments pain w/all Left Flexion (L2) 3+ Fair+ External Rotation 4- Good- Internal Rotation 4 Good Knee Strength Knee Manual Muscle Testing Right Flexion (S2) 4- Good- Extension (L3) 4- Good- Left Flexion (S2) 4- Good- Extension (L3) 4- Good- PT-OP-Q Treatments Start: 02/05/24 16:37 Freq: Status: Active Protocol: Document 06/11/24 09:15 [facility] (Rec: 06/11/24 09:48 [facility] [id number]) Therapeutic Exercises Supine Exercises bridge Side bilateral Reps/Minutes 10 sec x10 Single KFO Side bilateral Reps/Minutes 15 Comments cues neutral pelvis, core Sidelying Exercises clamshell Side right Reps/Minutes x10 Comments slower eccentric control cues and for no rolling hip abduction Side right Resistance AROM Reps/Minutes x3 Comments stopped d/t pain Standing Exercises Heel raises Standing Exercise Name Heel/Toe raises Side bilateral Resistance AROM Equipment Used @ rail Reps/Minutes 20 Comments eccentric/concentric control, UE support for safety with balance stretch Standing Exercise Name gentle hip flexor Side bilateral Reps/Minutes 20 sec eax2 sit to stand Standing Exercise Name HEP Side bilateral Equipment Used w/o Ues Reps/Minutes 10 Self-Care/Home Management Treatment Education Other Education 15 min: edu re: avoiding painful motions, edu to cont icing, discussed DC d/t no progress and still inc pain. discussed follow up with MD and to cont exercises. PT-OP-R Modalities Start: 02/05/24 16:37 Freq: Status: Active Protocol: Document 06/03/24 11:49 (Rec: 06/03/24 12:47 [id number]) Hot Pack/Cold Pack Treatment Hot Pack Location Anterior lateral Hip Patient Position Hooklying Patient Tolerance Good Comments bolster under LE, x8 layers, levi within reach, x15 min, pt tolerated well PT-OP-T Assessment and Plan Start: 02/05/24 16:37 Freq: Status: Active Protocol: Document 06/11/24 09:15 [facility] (Rec: 06/11/24 09:48 [facility] [id number]) Physical Therapy Assessment Goals activity Short Term Goal (STG) Pt will be able to return to walks of at least .5 mile w/o inc pain w/o AD. 02/27/24: unable at this time due to L foot pain in weight bearing and xray calcaneal spur. 03/12/24: still unable to WB into L ankle well. 03/17-did 15 min and felt okay;L ankle more limitor 04/07 -has been inc but not counting how far STG Duration achieved 04/24 Metallurgical Specialist Goal (LTG) Pt will be able to return to walks of at least 2 mile w/o inc pain w/o AD. 04/24-has been able to go for about 20 min LTG Duration achieved 05/22 mobility Short Term Goal (STG) Pt will be able to get in /out of car w/o inc pain 05/22-better w/UE lifting 06/11-no change STG Duration 05/23 Custodial Goal (LTG) Pt will be able to cut toe nails, cross legs, put on socks w/o feeling of loss of mobility 03/12/24: can don socks by putting foot on bed deep knee flexion, very tight unable to cross R leg over L thigh. Initiated R LE garcia taps to start progress range. 03/17-inc ease w/nails, can put on socks; cannot cross R leg still 04/07 can cut toe nails but lean over, can put on socks w/ o issue, slowly getting more ROM for leg cross 04/24-socks okay,toenails better 05/22-some pain w/socks, toenails ok if bend fwd, can not cross legs actively but can passively comfortably 06/11-still can't do figure 4 w /o pain. can bend over to reach foot LTG Duration 06/27 strength Short Term Goal (STG) Pt will be indep w/HEP 03/17-pt occ compliant w/HEP; attempting to resume standing work again 04/07 still been doing well with exercises 04/24-avoided exercises d/t tendonitis 05/22-been compliant w/ stretches 06/11-doing gentle stretching STG Duration 05/23 Metallurgical Specialist Goal (LTG) Pt will score at least 4+/5 on all LE MMT to show improved strength and stability to allow doing typical daily activities and return to work w/o limitation 03/17-advancing 04/07-improved 05/22-slowly improving 06/11 worse LTG Duration 06/27 LEFS Impairment 26 Short Term Goal (STG) Pt will score at least 45 on LEFS to show improved functional ability. 03/17-limited by ankle 04/07- 04/24- 05/22- STG Duration 25-worse Metallurgical Specialist Goal (LTG) Pt will score at least 58 on LEFS to show improved functional ability. LTG Duration 06/27 Assessment Summary Assessment At this time, pt worse and not making progress w/PT. DC d/t no progress and L hip/knee irritated. Pt encouraged to follow up w/surgeon and discuss w/MD plan for cont. Physical Therapy Plan Discharge Physical Therapy Discharge Reasons Plateau in Progress
== END 2024-07-03 09:54 | disposition home or self-care (01) ==
LOC: PHYS 09:00
PROVIDERS: Family Provider Family Medicine; PCP Family Medicine; Referring Provider Orthopaedic Surgery; Visit Provider Orthopaedic Surgery
DX: Z01.818 Encounter for other preprocedural examination (principal); M25.551 Pain in right hip; M16.11 Unilateral primary osteoarthritis, right hip
CPT/HCPCS: 97010; 97110; 97112; 97116; 97140; 97162; 97530; 97535

== ENCOUNTER → 2024-08-15 17:32 | Outpatient (CLI) | payer OTHER, SELFPAY ==
--- NOTE | 2024-08-15 17:34 | DI.RAD.S_ITS ---
PROCEDURE: XR HIP W PEL IF DONE LT 2V INDICATIONS: Left hip pain TECHNIQUE: AP pelvis with lateral view(s) of the left hip(s). COMPARISON: [facility], CR, XR HIP W PEL IF DONE RT 2V, 11/05/2023, 15:34. FINDINGS: Bones: There is prior right total hip arthroplasty with anatomic right hip alignment. Severe left hip joint osteoarthritic changes are seen. No acute fracture or dislocation. No evidence of avascular necrosis of femoral head. Pelvic ring appears intact. No suspicious bony lesions. Soft tissues: The visualized bowel gas pattern is normal. No suspicious soft tissue calcifications. IMPRESSION: Asymmetric severe left hip joint osteoarthritis. No acute fracture or dislocation. No radiographic evidence of avascular necrosis. Prior right total hip arthroplasty. Dictated by: Stephen Dunbar M.D. on 08/15/2024 at 18:01 Approved by: Stephen Dunbar M.D. on 08/15/2024 at 18:01
== END ==
PROVIDERS: Family Provider Family Medicine; PCP Family Medicine; Referring Provider Physician Assistant Surgical; Visit Provider Physician Assistant Surgical
DX: M16.12 Unilateral primary osteoarthritis, left hip (principal); M25.552 Pain in left hip; Z96.641 Presence of right artificial hip joint
CPT/HCPCS: 73502

== ENCOUNTER → 2025-02-06 17:23 | Outpatient (CLI) | payer OTHER, SELFPAY ==
--- NOTE | 2025-02-06 17:25 | DI.RAD.S_ITS ---
PROCEDURE: XR ELBOW RT MIN 3V INDICATIONS: Right elbow pain TECHNIQUE: 3 views of the elbow were acquired. COMPARISON: None. FINDINGS: Bones: No fractures or dislocations. No suspicious bony lesions. Soft tissues: No elbow joint effusion. No suspicious soft tissue calcifications. IMPRESSION: No elbow fracture or dislocation. No significant joint effusion. Dictated by: Stephen Dunbar M.D. on 02/07/2025 at 11:41 Approved by: Stephen Dunbar M.D. on 02/07/2025 at 11:43
== END ==
LOC: RAD 17:24
PROVIDERS: Family Provider Family Medicine; PCP Family Medicine; Referring Provider Nurse Practitioner Family; Visit Provider Nurse Practitioner Family
DX: M25.521 Pain in right elbow (principal)
CPT/HCPCS: 73080

== ENCOUNTER 2025-04-13 13:00 | Outpatient (RCR) | payer OTHER, SELFPAY ==
--- NOTE | 2025-02-17 18:49 | PT.OPPOC ---
Addendum entered and electronically signed by Radha Nj, PT 02/18/25 18:50: POC faxed Original Note: Physical, Occupational & Speech Therapy At [facility] Current Diagnoses Presence of left artificial hip joint (02/17/25) Visit Care Team Role Provider Type Tricia Weinstein PA-C Family Provider Advanced Wire Frame Lamp Shade Maker Primary Care Provider Specialty: Medical Address: [address] [place] [address], [address], [place], [address] Email: [email or web address] Gray Allred DO Attending Provider Non-Staff Referring Provider Specialty: Orthopedics Address: [address] [place] [address], [place], [address] Email: Plan Of Care PT OP: Lower Back/Lower Extremity Start: 02/16/25 17:57 Freq: Status: Active Protocol: Document 02/17/25 15:21 [facility] (Rec: 02/17/25 16:20 [facility] [id number]) Out-Patient Physical Therapy Visit Information Visit Information Visit Type Initial Evaluation Visit Start Time 15:20 Visit Stop Time 16:00 Visit Number 1 Number of PIPE WASHER Visits 0 Progress Note Due 03/19/25 Current Condition History of Current Condition Onset Date 01/01/25 Current Complaints L DEIDRA History of Current Pt had R DEIDRA about 1 year ago w/iliopsoas tendonitis Condition that improved after an injection. Her L side then started bothering her and 10 months after the first xray OA got worse. She had DEIDRA L side on 01/01/25. She did have a tiny fracture that the doctor noted with surgery unsure if it happened during or before. Pt thinks it may have been before as she was having so much trouble carrying things and couldn't walk without pain WB. doctor said it was healing. Ortho encouraged to consider talking to doctor about dexa d/t softness of bone. She feels like uneven and feels like she is more wobbly than she normally be. She quit using the walker and cane in the past week because R elbow tendonitis but can get in/out of tub. She has been doing standing abd per doctor. Returns back to work mar 27 Treatment Goals Patient/Caregiver Get back to going for walks, be able to hills, donning Goals and doffing shoes and socks and clip toenails. want to not feel anything anymore Patient Questionnaires Lower Extremity Functional Scale LEFS Score 30/80 Balance Tests Single Limb Standing Single Limb- Right 9 sec Single Limb- Left 2 sec OP Gait Assessment Comments Gait Comments dec LLE stance time, BUE dec arm swing, lat lean over LEs Hip Goniometric Range of Motion Hip Measured in Degrees Left Active Flexion w/Knee 72 Flexed Straight Leg Raise 50 Abduction 18 Hip Strength Hip Manual Muscle Testing Right Flexion (L2) 4 Good Abduction 4 Good External Rotation 4+ Good+ Internal Rotation 4+ Good+ Left Flexion (L2) 3 Fair Abduction 3 Fair External Rotation 3+ Fair+ Internal Rotation 3+ Fair+ Comments IR/ER tested neutral Knee Strength Knee Manual Muscle Testing Right Flexion (S2) 5 Normal Extension (L3) 5 Normal Left Flexion (S2) 4+ Good+ Extension (L3) 4+ Good+ Ankle/Foot Strength Ankle and Foot Manual Muscle Testing Right Dorsiflexion (L4) 5 Normal Plantarflexion (S1) 4+ Good+ Left Dorsiflexion (L4) 4+ Good+ Plantarflexion (S1) 4 Good Therapeutic Exercises Supine Exercises bridge Supine Exercise Name bridge Side bilateral Reps/Minutes 3 sec x15 Standing Exercises step up Side left Equipment Used 4 in Reps/Minutes 10 squat Standing Exercise mini w/hands on counter Name Side bilateral Reps/Minutes 15 abd Side bilateral Reps/Minutes 10 Comments cues core Physical Therapy Assessment Goals mobility Merchandise Examiner Goal (LTG) Pt will report no difficulty w/clipping toe nails or with shoes/socks donning LTG Duration 05/18 balance Short Term Goal (STG Pt will be able to LLE SLS for 5 sec ) STG Duration 03/23 [facility] Goal (LTG) Pt will be able to do BLE SLS for 10 sec ea to show improved balance LTG Duration 05/13 strength Short Term Goal (STG Pt will demonstrate independence w/HEP by being able to ) perform with no more than min cues. STG Duration 03/20 [facility] Goal (LTG) Pt will score at least 4+/5 on all BLE MMT and at least 3/5 LPM to show improved strength to allow pt to LTG Duration 05/13 LEFS Impairment 30/80 Short Term Goal (STG Pt will improve LEFS score to at least 40 to show ) improved functional ability. STG Duration 03/20 [facility] Goal (LTG) Pt will improve LEFS score to at least 60 to show improved functional ability. LTG Duration 05/18 Assessment Summary Assessment Pt presents 6 weeks s/p L DEIDRA w/hx of R DEIDRA about 1 year ago and significant B hip tightness and weakness before surgery also. 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 She has current antalgic gait, dec ambulation tolerance, dec strength and dec hip mobility. She would benefit from skilled PT to address her deficits and improve her function so she can return to work and doing activities w/grandchildren , ADLs, and walking without inc pain. Physical Therapy Plan Frequency and Duration Frequency of 2x/Week Treatment Duration of 12 treatment (weeks) Plan of Care Start 02/17/25 Date Plan of Care End 05/18/25 Date Therapeutic Interventions Therapeutic Balance Training,Gait Training,Home Exercise Program, Interventions Joint Mobilizations,Manual Therapy,Neuromuscular Re- education,Patient/Caregiver Education,Self-Care/Home Management,Soft Tissue Mobilization,Taping,Therapeutic Activities,Therapeutic Exercises Modalities Cold Pack/Ice Massage,Electric Stimulation,Hot Packs Next Visit Focus/Plan Next Note Type Treatment Note Next Visit Plan review exercises, gradually advance strength, manual to scar and hip flexors Plan of Care Dates Plan of Care Start Date 02/17/25 Plan of Care End Date 05/18/25 Electronically Signed by: Radha Nj, PT 02/18/25 [id number] If you are in agreement with this Plan of Care, please return a signed and dated copy. I have reviewed this Plan of Care and certify that the skilled therapy services above are required to meet the patient?s needs. Physician Signature Date Printed Name and Credentials Clinical Instructor Signature Printed Name and Credentials
--- NOTE | 2025-02-20 10:35 | PT.OTN ---
Current Diagnoses Presence of left artificial hip joint (02/20/25) Physical Therapy Treatment Note PT OP: Lower Back/Lower Extremity Start: 02/16/25 17:57 Freq: Status: Active Protocol: Document 02/20/25 09:54 SP (Rec: 02/20/25 10:41 SP [id number]) Out-Patient Physical Therapy Visit Information Visit Information Visit Type Treatment Note Visit Start Time 09:54 Visit Stop Time 10:35 Visit Number 2 Number of MAINFRAME ARCHITECT Visits 1 Progress Note Due 03/19/25 OP-PT Subjective Patient Comments Patient Comments Pt reported was at [facility] and sitting on ground with grandson and had challenge time getting up. She stated is only able to walk 5 min out before has to return due to lack strength endurance and [place] sits every bench. Still soreness over Gym Equipment Shuttle Recovery Bilateral Squats Resistance 50# 2 navy bands Reps/Time 20 reps Unilateral Squats Resistance 37# (navy) Shuttle Recovery Stable Platform Reps/Time 2x15 Therapeutic Exercises Sitting Exercises hip abduction Sitting Exercise added to HEP with HO Name Resistance TB #2 teal at thighs Reps/Minutes 20 reps Standing Exercises squat Standing Exercise mini w/hands on counter Name Side bilateral Reps/Minutes 15 abd Side bilateral Reps/Minutes 10 Comments cues core Therapeutic Activity Therapeutic Activity on/off floor Name instruction sequencing-discuss Reps/Minutes 2 reps Comments 1/2 kneel needs suport, can use hands on floor to knees tall quadruped<> squat <>stand Manual Therapy Treatment Consent Patient gave verbal Yes consent for manual treatment Soft Tissue Mobilization R hip Body Location quad, TFL, scar mobility Mobilization Type Instrument Assisted,Myofascial Release Body Position Hooklying Comments gentle- good response to cupping Physical Therapy Assessment Goals mobility Paid Search Manager Goal (LTG) Pt will report no difficulty w/clipping toe nails or with shoes/socks donning LTG Duration 05/18 balance Short Term Goal (STG Pt will be able to LLE SLS for 5 sec ) STG Duration 03/23 Paid Search Manager Goal (LTG) Pt will be able to do BLE SLS for 10 sec ea to show improved balance LTG Duration 11/5 strength Short Term Goal (STG Pt will demonstrate independence w/HEP by being able to ) perform with no more than min cues. STG Duration 03/20 Skilled Nursing Goal (LTG) Pt will score at least 4+/5 on all BLE MMT and at least 3/5 LPM to show improved strength to allow pt to LTG Duration 05/13 LEFS Impairment 30/80 Short Term Goal (STG Pt will improve LEFS score to at least 40 to show ) improved functional ability. STG Duration 03/20 Skilled Nursing Goal (LTG) Pt will improve LEFS score to at least 60 to show improved functional ability. LTG Duration 05/18 Assessment Summary Assessment Pt good feedback response to manual. Verbal review of standing ther ex AROM is compliant at home. Initiated seated resisted clamshell with good response muscle tiring, provided HO and band. Pt improved decreased outside support post education on tall quadruped to squat to stand best able to do to get on/off floor for doing activities with grandson. Physical Therapy Plan Frequency and Duration Frequency of 2x/Week Treatment Duration of 12 treatment (weeks) Plan of Care Start 02/17/25 Date Plan of Care End 05/18/25 Date Therapeutic Interventions Therapeutic Balance Training,Gait Training,Home Exercise Program, Interventions Joint Mobilizations,Manual Therapy,Neuromuscular Re- education,Patient/Caregiver Education,Self-Care/Home Management,Soft Tissue Mobilization,Taping,Therapeutic Activities,Therapeutic Exercises Modalities Cold Pack/Ice Massage,Electric Stimulation,Hot Packs Next Visit Focus/Plan Next Note Type Treatment Note Next Visit Plan POC: Review exercises as needed for proper form, gradually advance strength, manual to scar and hip flexors
--- NOTE | 2025-02-25 11:37 | PT.OTN ---
Current Diagnoses Presence of left artificial hip joint (02/25/25) Physical Therapy Treatment Note PT OP: Lower Back/Lower Extremity Start: 02/16/25 17:57 Freq: Status: Active Protocol: Document 02/25/25 10:46 SP (Rec: 02/25/25 11:36 SP [id number]) Out-Patient Physical Therapy Visit Information Visit Information Visit Type Treatment Note Visit Start Time 10:46 Visit Stop Time 11:28 Visit Number 3 Number of ZIPPER LINING FOLDER Visits 2 Progress Note Due 03/19/25 OP-PT Subjective Patient Comments Patient Comments Pt reports elbow feeling better with cortizone shot recently. She walked around portion of clinic/few blocks little tenderness in jt but not limiting. Is being mindful lifting items with palm up instructed by physician and use CP when needed. Able get on/off floor better. Pt reports used to attend pump class at [facility] in past and her hip couldn't handle doing lunges so hasn't returne to them and maybe why doesn't get on/off floor often, would like to incorporate in PT at some point. Cardio Equipment Recumbent Elliptical (NuStep) Duration (Minutes) 8 Resistance 4 Seat Position 9 Other LEs only Gym Equipment Shuttle Recovery Bilateral Squats Resistance 50# 2 navy bands Reps/Time 20 reps Unilateral Squats Resistance 37# (navy) Shuttle Recovery Stable Platform Reps/Time 20 reps Therapeutic Exercises Supine Exercises Modified quad stretch Supine Exercise Name lower leg dangle off table Side left Reps/Minutes 30 sec Comments gentle quad stretch, femur supported on table Standing Exercises Mini Lunge Standing Exercise in PT, assess support for get on off floor and ex did Name in past ex class Side bilateral Equipment Used rail support Reps/Minutes 10 reps each side Comments cued buttocks back mini range- good, just muscle tiring Resisted Stepping Standing Exercise Lateral, Fwd, Bwd- in PT only at this time Name Side bilateral Resistance Tb #2 teal at shins>ankles Reps/Minutes 10 ft x2 laps each direction Comments PRN rail Manual Therapy Treatment Consent Patient gave verbal Yes consent for manual treatment Soft Tissue Mobilization R hip Body Location quad, TFL, scar mobility Mobilization Type Instrument Assisted,Myofascial Release Body Position Hooklying Comments gentle- good response to cupping Self-Care/Home Management Treatment Education Patient Education Body Mechanics,Joint Protection,Pain Management,Safety Other Education Education during Mini lunges for proper form and COG over HAN, rail contact, Wider HAN for stability for strengthening to ease on/off floor. Physical Therapy Assessment Goals mobility Skilled Nursing Goal (LTG) Pt will report no difficulty w/clipping toe nails or with shoes/socks donning LTG Duration 05/18 balance Short Term Goal (STG Pt will be able to LLE SLS for 5 sec ) STG Duration 03/23 Skilled Nursing Goal (LTG) Pt will be able to do BLE SLS for 10 sec ea to show improved balance LTG Duration 05/13 strength Short Term Goal (STG Pt will demonstrate independence w/HEP by being able to ) perform with no more than min cues. STG Duration 03/20 Skilled Nursing Goal (LTG) Pt will score at least 4+/5 on all BLE MMT and at least 3/5 LPM to show improved strength to allow pt to LTG Duration 05/13 LEFS Impairment 30/80 Short Term Goal (STG Pt will improve LEFS score to at least 40 to show ) improved functional ability. STG Duration 03/20 Skilled Nursing Goal (LTG) Pt will improve LEFS score to at least 60 to show improved functional ability. LTG Duration 05/18 Assessment Summary Assessment Pt good tolerance to increased resistance to ther ex today and incorportated dynamic stepping inPT for now, not feeling stable for home yet. Initiated mini lunge with cues alignment/form to support strength to ease in time getting on/off floor and attend classes again. She improved LE alignment and awareness of cardio during cues on bike for return to gym. Physical Therapy Plan Frequency and Duration Frequency of 2x/Week Treatment Duration of 12 treatment (weeks) Plan of Care Start 02/17/25 Date Plan of Care End 05/18/25 Date Therapeutic Interventions Therapeutic Balance Training,Gait Training,Home Exercise Program, Interventions Joint Mobilizations,Manual Therapy,Neuromuscular Re- education,Patient/Caregiver Education,Self-Care/Home Management,Soft Tissue Mobilization,Taping,Therapeutic Activities,Therapeutic Exercises Modalities Cold Pack/Ice Massage,Electric Stimulation,Hot Packs Next Visit Focus/Plan Next Note Type Treatment Note Next Visit Plan POC: Review exercises as needed for proper form, gradually advance strength, manual to scar and hip flexors
--- NOTE | 2025-02-27 10:53 | PT.OTN ---
Current Diagnoses Presence of left artificial hip joint (02/27/25) Physical Therapy Treatment Note PT OP: Lower Back/Lower Extremity Start: 02/16/25 17:57 Freq: Status: Active Protocol: Document 02/27/25 08:33 AB (Rec: 02/27/25 09:52 AB [id number]) Out-Patient Physical Therapy Visit Information Visit Information Visit Type Treatment Note Visit Start Time 09:01 Visit Stop Time 09:46 Visit Number 4 Number of SUPERVISOR TYPE BAR AND SEGMENT Visits 3 Progress Note Due 03/19/25 OP-PT Subjective Patient Comments Patient Comments Patient reports she feels she is improving faster with this hip compared to the replacement on the R. Patient reports she is limping a bit less every day. Patient rates L hip pain 3/10 start of session. SLS 2,2,2 without UE use L LE start of session. Gym Equipment Shuttle Balance Red Reps/Duration 1-2 min Comments Fwd & retro fwd: NBOS Head turns CGA Therapeutic Exercises Supine Exercises Modified quad stretch Supine Exercise Name lower leg dangle off table Side left Reps/Minutes 60 sec X 2 with AROM knee flexion/x10 during each stretch Comments gentle quad stretch, femur supported on table bridge Supine Exercise Name bridge Side bilateral Resistance level 3 band Reps/Minutes 3 sec x15 X2 Comments VC to keep tension on band and monitored for pain Standing Exercises glute med isometric Side bilateral Reps/Minutes 30 sec X 1 each LE Comments verbal cues and visual cues Mini Lunge Side bilateral Resistance level 3 [place] band Reps/Minutes X 10 X2 Comments Verbal cues for hip hinge, monitored for pain Manual Therapy Treatment Soft Tissue Mobilization R hip Body Location illiopsoas and scar Mobilization Type Cross-Friction,Myofascial Release,Rolling Intensity/Depth Moderate Body Position Hooklying Comments and superficial Neuro Re-Education Treatment Balance Activities Foam Details 1. Romberg 2. step up taps to 6 inch step 3. balloontoss Reps/Duration 1. with eyes closed w/wo head turns 2min2. X 10 3. balloon toss X 3 min Comments CGA Physical Therapy Assessment Goals mobility Internal Controls Analyst Goal (LTG) Pt will report no difficulty w/clipping toe nails or with shoes/socks donning LTG Duration 11 balance Short Term Goal (STG Pt will be able to LLE SLS for 5 sec ) STG Duration 03/23 Internal Controls Analyst Goal (LTG) Pt will be able to do BLE SLS for 10 sec ea to show improved balance LTG Duration 05/13 strength Short Term Goal (STG Pt will demonstrate independence w/HEP by being able to ) perform with no more than min cues. STG Duration 03/20 [facility] Goal (LTG) Pt will score at least 4+/5 on all BLE MMT and at least 3/5 LPM to show improved strength to allow pt to LTG Duration 05/13 LEFS Impairment 30/80 Short Term Goal (STG Pt will improve LEFS score to at least 40 to show ) improved functional ability. STG Duration 03/20 [facility] Goal (LTG) Pt will improve LEFS score to at least 60 to show improved functional ability. LTG Duration 05/18 Assessment Summary Assessment Patient reports having no increased pain end of session . SLS L LE limited to to 2sec. Patient will benefit from progression of strengthening and balance training for improved safety during ambulation. Physical Therapy Plan Frequency and Duration Frequency of 2x/Week Treatment Duration of 12 treatment (weeks) Plan of Care Start 02/17/25 Date Plan of Care End 05/18/25 Date Next Visit Focus/Plan Next Note Type Treatment Note Next Visit Plan POC: Review exercises as needed for proper form, gradually advance strength, manual to scar and hip flexors
--- NOTE | 2025-03-02 09:45 | PT.OTN ---
Current Diagnoses Presence of left artificial hip joint (03/02/25) Physical Therapy Treatment Note PT OP: Lower Back/Lower Extremity Start: 02/16/25 17:57 Freq: Status: Active Protocol: Document 03/02/25 09:05 [facility] (Rec: 03/02/25 09:45 [facility] [id number]) Out-Patient Physical Therapy Visit Information Visit Information Visit Type Treatment Note Visit Start Time 09:04 Visit Stop Time 09:44 Visit Number 4 Number of SUBASSEMBLY ASSEMBLER Visits 0 Progress Note Due 03/19/25 OP-PT Subjective Patient Comments Patient Comments Pt reports she still gets some soreness in L glute. Went to [employer] w/[employer] and was sore the day after. Improved after about a day Gym Equipment Shuttle Recovery Unilateral Squats Details B Resistance 37# (navy) Shuttle Recovery Stable Platform Reps/Time 20 reps-cues full range Shuttle Balance Red Details gradually dec UE support Comments Fwd & side: WBOS & NBOS fwd: staggered stance B Therapeutic Exercises Standing Exercises glute med isometric Side bilateral Reps/Minutes 30 sec X 1 each LE Comments cues set up and posture Resisted Stepping Standing Exercise lat, fwd, back Name Side bilateral Resistance lvl 2 at shins Reps/Minutes 15ftx2 ea Comments cues posture and comfortable range step up Side left Equipment Used 4 in, 6 in Reps/Minutes 10 ea Comments cues control down squat Standing Exercise mini w/hands on bar Name Side bilateral Equipment Used L2 at knees Reps/Minutes 15 Comments cues knee position and cues full glute squeeze Neuro Re-Education Treatment Balance Activities SLS Comments B trials tandem Comments 1. stance B 2. walk w/finger on rail 2x15ft Physical Therapy Assessment Goals mobility School Crossing Guard Goal (LTG) Pt will report no difficulty w/clipping toe nails or with shoes/socks donning LTG Duration 11 balance Short Term Goal (STG Pt will be able to LLE SLS for 5 sec ) STG Duration 03/23 Senior Care Goal (LTG) Pt will be able to do BLE SLS for 10 sec ea to show improved balance LTG Duration 11 strength Short Term Goal (STG Pt will demonstrate independence w/HEP by being able to ) perform with no more than min cues. STG Duration 03/20 Senior Care Goal (LTG) Pt will score at least 4+/5 on all BLE MMT and at least 3/5 LPM to show improved strength to allow pt to LTG Duration 05/13 LEFS Impairment 30/80 Short Term Goal (STG Pt will improve LEFS score to at least 40 to show ) improved functional ability. STG Duration 03/20 Senior Care Goal (LTG) Pt will improve LEFS score to at least 60 to show improved functional ability. LTG Duration 05/18 Assessment Summary Assessment Pt was challenged with balance exercises today. cues needed with strength exercises. Physical Therapy Plan Frequency and Duration Frequency of 2x/Week Treatment Duration of 12 treatment (weeks) Plan of Care Start 02/17/25 Date Plan of Care End 05/18/25 Date Next Visit Focus/Plan Next Note Type Treatment Note Next Visit Plan Review exercises as needed for proper form, gradually advance strength, manual to scar and hip flexors
--- NOTE | 2025-03-04 09:04 | PT.OTN ---
Current Diagnoses Presence of left artificial hip joint (03/04/25) Physical Therapy Treatment Note PT OP: Lower Back/Lower Extremity Start: 02/16/25 17:57 Freq: Status: Active Protocol: Document 03/04/25 08:21 [facility] (Rec: 03/04/25 08:58 [facility] [id number]) Out-Patient Physical Therapy Visit Information Visit Information Visit Type Treatment Note Visit Start Time 08:20 Visit Stop Time 09:00 Visit Number 5 Number of BOAT CANVAS MAKER AND INSTALLER Visits 0 Progress Note Due 03/19/25 Precautions Precautions L Ant DEIDRA OP-PT Subjective Patient Comments Patient Comments Pt reports a lot of stress in personal life last couple days. Hip feeling good. Went for several small walks but it doesn't feel like she can go even half the distance she can go. Gym Equipment Shuttle Recovery Bilateral Squats Details cues control Resistance 87# 3 navy bands Reps/Time 8 reps Unilateral Squats Details B Resistance 37# (navy) Shuttle Recovery Stable Platform Reps/Time 20 reps-cues full range and control Shuttle Rebound balance Comments 1.marching x12 B Shuttle Balance Red Details gradually dec UE support Comments Fwd & side: WBOS & NBOS fwd: staggered stance B Therapeutic Exercises Standing Exercises heel raises Standing Exercise on stairs DL Name Side bilateral Equipment Used w/rail Reps/Minutes 15 Comments cues control decent and push into big toe Resisted Stepping Standing Exercise 1. lat 2. fwd/back Name Side bilateral Resistance lvl 2 at shins Reps/Minutes 1.15ftx2 ea 2. 15ft ea Comments cues posture and comfortable range step up Standing Exercise 1. step up fwd 2. lat Name Side left Equipment Used 6 in Reps/Minutes 10 ea Comments cues control up and down and dec momentum use squat Standing Exercise squat over chair -cues to inc range-slowly down to the Name chair Side bilateral Reps/Minutes 15 Comments cues knee position and cues full glute squeeze Neuro Re-Education Treatment Balance Activities SLS Comments B trials tandem Comments B stance trials Physical Therapy Assessment Goals mobility Penitentiary Goal (LTG) Pt will report no difficulty w/clipping toe nails or with shoes/socks donning LTG Duration 05/18 balance Short Term Goal (STG Pt will be able to LLE SLS for 5 sec ) STG Duration 03/23 Penitentiary Goal (LTG) Pt will be able to do BLE SLS for 10 sec ea to show improved balance LTG Duration 05/13 strength Short Term Goal (STG Pt will demonstrate independence w/HEP by being able to ) perform with no more than min cues. STG Duration 03/20 Penitentiary Goal (LTG) Pt will score at least 4+/5 on all BLE MMT and at least 3/5 LPM to show improved strength to allow pt to LTG Duration 05/13 LEFS Impairment 30/80 Short Term Goal (STG Pt will improve LEFS score to at least 40 to show ) improved functional ability. STG Duration 03/20 [address] Contractor Goal (LTG) Pt will improve LEFS score to at least 60 to show improved functional ability. LTG Duration 05/18 Assessment Summary Assessment Improving stability in balance today. Cues still needed for leg position and posture throughout strength exercises. Physical Therapy Plan Frequency and Duration Frequency of 2x/Week Treatment Duration of 12 treatment (weeks) Plan of Care Start 02/17/25 Date Plan of Care End 05/18/25 Date Next Visit Focus/Plan Next Note Type Treatment Note Next Visit Plan Review exercises as needed for proper form, gradually advance strength, manual to scar and hip flexors
--- NOTE | 2025-03-11 11:33 | PT.OTN ---
Current Diagnoses Presence of left artificial hip joint (03/11/25) Physical Therapy Treatment Note PT OP: Lower Back/Lower Extremity Start: 02/16/25 17:57 Freq: Status: Active Protocol: Document 03/11/25 10:49 [facility] (Rec: 03/11/25 11:33 [facility] [id number]) Out-Patient Physical Therapy Visit Information Visit Information Visit Type Treatment Note Visit Start Time 10:49 Visit Stop Time 11:32 Visit Number 6 Number of PROGRAMMING SPECIALIST Visits 1 Progress Note Due 03/19/25 Precautions Precautions L Ant DEIDRA OP-PT Subjective Patient Comments Patient Comments Pt reports her L hip just little weak soreness but doing ok. Gym Equipment Shuttle Recovery Bilateral Squats Details cues control Resistance 75# x20 reps, 87# 3 navy bands - 5 reps Unilateral Squats Details B: cues full range and control, glut engagement Resistance 37# (1 navy) L, 50# R (2 navy bands) x10 Shuttle Recovery Stable Platform Reps/Time 10 reps R, 20 reps L Therapeutic Exercises Sitting Exercises Hip Flexion with ER garcia/knee taps Sitting Exercise added to HEP with HO Name Side bilateral Reps/Minutes 3 sets x10 reps each side Comments improved range hip abduction Sitting Exercise reviewed Name Resistance TB #3 teal at thighs Reps/Minutes 60 sec hold then 15 reps Comments cued heels down, good muscle tiring response and little hip abd quivering Standing Exercises heel raises Standing Exercise on stairs DL Name Side bilateral Equipment Used w/rail Reps/Minutes 15 Comments cues control decent and push into big toe glute med isometric Standing Exercise lateral knee press into wall Name Side bilateral Reps/Minutes 10 sec hold x2 reps Comments cues set up bent knee toe floor/knee press into wall, opp stand soft knee Resisted Stepping Standing Exercise 1. lat 2. fwd/back Name Side bilateral Resistance lvl 3 at shins Equipment Used near rail safety (not need contact) Reps/Minutes 15ftx 3 laps each Comments good form, good verbalized not use momentum step up Standing Exercise 1. step up fwd/ back tap down (repeat single) 2. lat Name Side bilateral Resistance PRN rail Equipment Used 6 in Reps/Minutes 10 ea LE and direction Comments good form, good verbalized and self correction not use momentum squat Standing Exercise squat over body solid bench -cues to inc range-slowly Name down & up to bench Side bilateral Resistance arms across chest Reps/Minutes 15 Comments cues knee position and cues full glute squeeze into full extension stand Physical Therapy Assessment Goals mobility Senior Living Goal (LTG) Pt will report no difficulty w/clipping toe nails or with shoes/socks donning LTG Duration 05/18 balance Short Term Goal (STG Pt will be able to LLE SLS for 5 sec ) STG Duration 03/23 Senior Living Goal (LTG) Pt will be able to do BLE SLS for 10 sec ea to show improved balance LTG Duration 05/13 strength Short Term Goal (STG Pt will demonstrate independence w/HEP by being able to ) perform with no more than min cues. STG Duration 03/20 Solution Design Engineer Goal (LTG) Pt will score at least 4+/5 on all BLE MMT and at least 3/5 LPM to show improved strength to allow pt to LTG Duration 05/13 LEFS Impairment 30/80 Short Term Goal (STG Pt will improve LEFS score to at least 40 to show ) improved functional ability. STG Duration 03/20 Solution Design Engineer Goal (LTG) Pt will improve LEFS score to at least 60 to show improved functional ability. LTG Duration 05/18 Assessment Summary Assessment Pt improved muscle tiring work of glut medius, glut pito, hip flexion with ER active AROM, some hold vs moving reps for progress strengthening to improve ability to tie her shoes and clip her toe nails. Mod cues for set up and proper form. Physical Therapy Plan Frequency and Duration Frequency of 2x/Week Treatment Duration of 12 treatment (weeks) Plan of Care Start 02/17/25 Plan of Care End 05/18/25 Date Therapeutic Interventions Therapeutic Balance Training,Gait Training,Home Exercise Program, Interventions Joint Mobilizations,Manual Therapy,Neuromuscular Re- education,Patient/Caregiver Education,Self-Care/Home Management,Soft Tissue Mobilization,Taping,Therapeutic Activities,Therapeutic Exercises Modalities Cold Pack/Ice Massage,Electric Stimulation,Hot Packs Next Visit Focus/Plan Next Note Type Treatment Note Next Visit Plan Review HEP exercises as needed for proper form, gradually advance strength, manual to scar and hip flexors
--- NOTE | 2025-03-18 15:20 | PT.OPPN ---
Current Diagnoses Presence of left artificial hip joint (03/18/25) Physical Therapy Progress Note PT OP: Lower Back/Lower Extremity Start: 02/16/25 17:57 Freq: Status: Active Protocol: Document 03/18/25 14:35 [facility] (Rec: 03/18/25 15:20 [facility] [id number]) Out-Patient Physical Therapy Visit Information Visit Information Visit Type Progress Note Visit Start Time 14:35 Visit Stop Time 15:15 Visit Number 7 Number of BOARD WRITER Visits 0 Progress Note Due 04/17/25 OP-PT Subjective Patient Comments Patient Comments A little sore in back of knee after last session but better within a day. Did a mile walk and felt good with 1 seated rest break Posture Evaluation Scarlett Postural Classification System Lumbar Protective 1 Mechanism Left AP Lumbar Protective 2 Mechanism Right AP Lumbar Protective 2 Mechanism Left PA Lumbar Protective 2 Mechanism Right PA Hip Strength Hip Manual Muscle Testing Right Flexion (L2) 4 Good Abduction 4 Good External Rotation 4+ Good+ Internal Rotation 5 Normal Left Flexion (L2) 4- Good- Abduction 4- Good- External Rotation 4- Good- Internal Rotation 4+ Good+ Knee Strength Knee Manual Muscle Testing Right Flexion (S2) 5 Normal Extension (L3) 5 Normal Left Flexion (S2) 4+ Good+ Extension (L3) 4+ Good+ Ankle/Foot Strength Ankle and Foot Manual Muscle Testing Right Dorsiflexion (L4) 5 Normal Plantarflexion (S1) 5 Normal Left Dorsiflexion (L4) 4+ Good+ Plantarflexion (S1) 5 Normal Comments test seated Gym Equipment Shuttle Recovery Bilateral Squats Details cues control & full range Resistance 75#, 87# Reps/Time 10 ea Unilateral Squats Details B: cues full range and control, glut3 engagement Resistance 37# (1 navy) Lx15 , 50# R (2 navy bands) x15 Manual Therapy Treatment Consent Patient gave verbal Yes consent for manual treatment Soft Tissue Mobilization R hip Body Location R ITB, TFL,HS Mobilization Type Rolling Comments w/hip flex Joint Mobilizations hip Direction II Comments inf c/r Neuro Re-Education Treatment Balance Activities hurdles Equipment 6 hurdles Comments 1. recip over x8 2. sidestep x2 B Foam Comments 1. fwd walk over 5 black foamx 6 2. WBOS EC 3. NBOS EC Physical Therapy Assessment Goals mobility Jail Goal (LTG) Pt will report no difficulty w/clipping toe nails or with shoes/socks donning 03/18-hasn't worn anything besides crocs. some hip tightness when simulates tying shoes LTG Duration 05/18 balance Short Term Goal (STG Pt will be able to LLE SLS for 5 sec ) STG Duration achieved 03/18 Senior Category Manager Goal (LTG) Pt will be able to do BLE SLS for 10 sec ea to show improved balance 03/18-9 sec R, 7 sec L LTG Duration 05/13 strength Short Term Goal (STG Pt will demonstrate independence w/HEP by being able to ) perform with no more than min cues. STG Duration 03/20 Senior Category Manager Goal (LTG) Pt will score at least 4+/5 on all BLE MMT and at least 3/5 LPM to show improved strength to allow pt to 03/18-improving LTG Duration 05/13 LEFS Impairment 30/80 Short Term Goal (STG Pt will improve LEFS score to at least 40 to show ) improved functional ability. 03/18-39 STG Duration 03/20 Senior Category Manager Goal (LTG) Pt will improve LEFS score to at least 60 to show improved functional ability. LTG Duration 05/18 Assessment Summary Assessment Pt making excellent progress w/PT with improving strength, balance and ROM. She would benefit from cont PT to improve functional mobility. She had improved hip flex w/manual Physical Therapy Plan Frequency and Duration Frequency of 2x/Week Treatment Duration of 12 treatment (weeks) Plan of Care Start 02/17/25 Date Plan of Care End 05/18/25 Date Therapeutic Interventions Therapeutic Balance Training,Gait Training,Home Exercise Program, Interventions Joint Mobilizations,Manual Therapy,Neuromuscular Re- education,Patient/Caregiver Education,Self-Care/Home Management,Soft Tissue Mobilization,Taping,Therapeutic Activities,Therapeutic Exercises Modalities Cold Pack/Ice Massage,Electric Stimulation,Hot Packs Next Visit Focus/Plan Next Note Type Treatment Note Next Visit Plan cont to advance strength and balance and gait, manual for improved ROM
--- NOTE | 2025-03-20 13:50 | PT.OTN ---
Current Diagnoses Presence of left artificial hip joint (03/20/25) Physical Therapy Treatment Note PT OP: Lower Back/Lower Extremity Start: 02/16/25 17:57 Freq: Status: Active Protocol: Document 03/20/25 13:10 [facility] (Rec: 03/20/25 14:57 [facility] [id number]) Out-Patient Physical Therapy Visit Information Visit Information Visit Type Treatment Note Visit Note TURNER Mujica assisted patient with manual and ther ex instruction as needed while under direct superversion and instruction of AUDIT LEAD Savana. Visit Start Time 13:10 Visit Stop Time 13:50 Visit Number 8 Number of AUDIT LEAD Visits 1 Progress Note Due 04/17/25 Precautions Precautions 01/01/25: L Ant DEIDRA OP-PT Subjective Patient Comments Patient Comments Pt is 10 weeks s/p DEIDRA, she reports had some throbbing over L hip sitting down last night and didn't do anything and eventurally went away, was gone by time went to bed. Cardio Equipment Recumbent Stepper (Sci-Fit) Duration (Minutes) 6 Resistance 3 Seat Position 11 Other BUEs/BLEs, 36 RPMs, 0.55 miles Gym Equipment Shuttle Recovery Bilateral Squats Details cues control & full range but not lock extension Resistance 62 # (new bands) Reps/Time 12 ea Unilateral Squats Details B: cues full range and ecc control, glut engagement Resistance 25 # (new bands) Reps/Time 10 Therapeutic Activity Therapeutic Activity Deep Squat seed cone picker item off floor Name deep squat- after manual Reps/Minutes many reps (front of mirror) Comments cues for level pelvis, hips midline between B feet- reports and demonstrates easier to reach timer with RUE than LUE. cues knee position and cues full glute squeeze into full extension stand Manual Therapy Treatment Consent Patient gave verbal Yes consent for manual treatment Soft Tissue Mobilization R hip Body Location [place]: ITB, TFL, Adductor Longus prox tight, RF Mobilization Type Rolling Intensity/Depth Moderate Comments LEs over foam roller Joint Mobilizations hip Joint channing Direction isometric adduction 5 SH x5 reps then move into ER/ABD Grade II Comments hip ER c/r, improved increase elongation of adductors and gain hip ER ROM. Physical Therapy Assessment Goals mobility Regional Account Director Goal (LTG) Pt will report no difficulty w/clipping toe nails or with shoes/socks donning 03/18-hasn't worn anything besides crocs. some hip tightness when simulates tying shoes LTG Duration 05/18 balance Short Term Goal (STG Pt will be able to LLE SLS for 5 sec ) STG Duration achieved 03/18 Custodial Goal (LTG) Pt will be able to do BLE SLS for 10 sec ea to show improved balance 03/18-9 sec R, 7 sec L LTG Duration 05/13 strength Short Term Goal (STG Pt will demonstrate independence w/HEP by being able to ) perform with no more than min cues. STG Duration 03/20 Custodial Goal (LTG) Pt will score at least 4+/5 on all BLE MMT and at least 3/5 LPM to show improved strength to allow pt to 03/18-improving LTG Duration 05/13 LEFS Impairment 30/80 Short Term Goal (STG Pt will improve LEFS score to at least 40 to show ) improved functional ability. 03/18- STG Duration 03/20 Custodial Goal (LTG) Pt will improve LEFS score to at least 60 to show improved functional ability. LTG Duration 05/18 Assessment Summary Assessment Pt improved hip ER ROM with reports decreased adductor and hip flexor tightness after manual with ability to complete Fig 4 stretch without discomfort at groin and low back. Instructional cues for improvement of pelvis/ trunk alignment while in front of the mirror gave patient self corrections feedback for carryover body mechanics into a deeper squats, and was able to seed cone picker items with better hip flexion. She reports and demonstrates decrease ROM reaching with LUE vs RUE usually uses on normal basis. Suggestion to perform as HEP at home now vs mini squat but know may not reach as far with LUE at this time but hoping will improve and not to push into pain AROM. Verbal understanding. Physical Therapy Plan Frequency and Duration Frequency of 2x/Week Treatment Duration of 12 treatment (weeks) Plan of Care Start 02/17/25 Date Plan of Care End 05/18/25 Date Therapeutic Interventions Therapeutic Balance Training,Gait Training,Home Exercise Program, Interventions Joint Mobilizations,Manual Therapy,Neuromuscular Re- education,Patient/Caregiver Education,Self-Care/Home Management,Soft Tissue Mobilization,Taping,Therapeutic Activities,Therapeutic Exercises Modalities Cold Pack/Ice Massage,Electric Stimulation,Hot Packs Next Visit Focus/Plan Next Note Type Treatment Note Next Visit Plan REcheck deep squat HEP updated last tx. POC: cont to advance strength and balance and gait, manual for improved ROM
--- NOTE | 2025-03-23 15:44 | PT.OTN ---
Current Diagnoses Presence of left artificial hip joint (03/23/25) Physical Therapy Treatment Note PT OP: Lower Back/Lower Extremity Start: 02/16/25 17:57 Freq: Status: Active Protocol: Document 03/23/25 13:01 [facility] (Rec: 03/23/25 14:01 [facility] [id number]) Out-Patient Physical Therapy Visit Information Visit Information Visit Type Treatment Note Visit Note TURNER Mujica leading tx with direct supervision by YOMI Youssef, with pt permission Visit Start Time 13:01 Visit Stop Time 13:45 Visit Number 9 Number of [employer] Visits 2 Progress Note Due 04/17/25 OP-PT Subjective Patient Comments Patient Comments Pt unable to complete HEP over weekend but did walk loop at park with no problems. Does not have any pn today or any new concerns. Gym Equipment Shuttle Recovery Bilateral Squats Details cues control & full range but not lock extension Resistance 62 # (new bands) Reps/Time 20 Unilateral Squats Details B: cues full range and ecc control, glut engagement Resistance 37# # (new bands) Reps/Time 10 Therapeutic Exercises Sitting Exercises Hip Flexion with ER garcia/knee taps Sitting Exercise reviewed Name Side bilateral Reps/Minutes 3 sets x10 reps each side Comments pt demo improved range: L mid garcia, R top 2/3 of garcia Standing Exercises Mini Lunge Standing Exercise mini lunge at bar Name Side bilateral Equipment Used bar prn Reps/Minutes 2 x 5 each Comments cue to use bar for balance, step out length, slow and steady. Therapeutic Activity Therapeutic Activity Deep Squat grain picker item off floor Name deep squat after shuttle recovery warm up Reps/Minutes 10 Comments cues for hip hinge, balance while reaching for object on floor. Pt able to complete without LOB or lack of range. Improved comfort and ROM during activity since . on/off floor Name on/off floor Reps/Minutes 3x Comments No AD or UE support needed. Pt demonstrated good ROM in squatting to sit on floor and able to stand fully from kneel to 1/2 kneel to stand. Neuro Re-Education Treatment Balance Activities hurdles Equipment 6 hurdles, ll bars, gb for safety, 4# AW Bilat Reps/Duration 3 laps each front and side stepping Comments vc for reciprocal gait, not using hands unless necessary, slow even pacing. Rest in chair btwn front and side laps. Pt demonstrated slight intermittent need for bar touch for balance on side stepping. Pt tired after last lap but maintained pace throughout all laps. SLS Details SLS in corner with chair in front- added to HEP/ declined HO Surface level Equipment corner, chair Reps/Duration x 5 each side Comments Able to hold for 8 sec L and 5 sec R with practice and vc for posture, retracting shoulder blades. Self-Care/Home Management Treatment Activities Self-Care/Home Reviewed HEP, pt has good recall of exercises. Pt will Management add daily SLS at counter or in corner with chair and Activities time for as long as able to maintain balance, seeking increasing time with practice. Physical Therapy Assessment Goals mobility Intake Assessor Goal (LTG) Pt will report no difficulty w/clipping toe nails or with shoes/socks donning 03/18-hasn't worn anything besides crocs. some hip tightness when simulates tying shoes LTG Duration 05/18 balance Short Term Goal (STG Pt will be able to LLE SLS for 5 sec ) 03/23 progressing, able to complete 5 sec with practice and vc for posture. STG Duration achieved 03/18 Penitentiary Goal (LTG) Pt will be able to do BLE SLS for 10 sec ea to show improved balance 03/23 8 sec L, 5 sec R LTG Duration 05/13 strength Short Term Goal (STG Pt will demonstrate independence w/HEP by being able to ) perform with no more than min cues. STG Duration 03/20 Penitentiary Goal (LTG) Pt will score at least 4+/5 on all BLE MMT and at least 3/5 LPM to show improved strength to allow pt to 03/18-improving LTG Duration 05/13 LEFS Impairment 30/80 Short Term Goal (STG Pt will improve LEFS score to at least 40 to show ) improved functional ability. 03/18-39/ STG Duration 03/20 Intake Assessor Goal (LTG) Pt will improve LEFS score to at least 60 to show improved functional ability. LTG Duration 05/18 Assessment Summary Assessment Pt making progress with functional mobility and balance , picking objects off floor in deep squat and sitting and rising from floor with no AD or UE support. Pt still lacks functional ER for goal of ankle on knee to do foot care. Physical Therapy Plan Frequency and Duration Frequency of 2x/Week Treatment Duration of 12 treatment (weeks) Plan of Care Start 02/17/25 Date Plan of Care End 05/18/25 Date Next Visit Focus/Plan Next Visit Plan Progress SLS and balance activities, assess ER and work on ROM. Progress functional activities for to increase strength, balance, and endurance.
--- NOTE | 2025-03-25 15:29 | PT.OTN ---
Current Diagnoses Presence of left artificial hip joint (03/25/25) Physical Therapy Treatment Note PT OP: Lower Back/Lower Extremity Start: 02/16/25 17:57 Freq: Status: Active Protocol: Document 03/25/25 13:01 PD (Rec: 03/25/25 12:59 PD [id number]) Out-Patient Physical Therapy Visit Information Visit Information Visit Type Treatment Note Visit Note TURNER Mujica leading tx with direct supervision by YOMI Youssef, with pt permission. Visit Start Time 13:01 Visit Stop Time 13:43 Visit Number 10 Number of IN FLIGHT REFUELING MANAGER Visits 3 Progress Note Due 04/17/25 OP-PT Subjective Patient Comments Patient Comments Pt walked 1/2 on [place] [employer] [place], took break, walked back, little bit sore from that. Also tried a bit of swimming for the first time since surgery. It was nice. Doing HEP, not every day, side leg raises, deep squats to mimic picking up object, seated ankle to knee. scar itching today. Gym Equipment Shuttle Recovery Bilateral Squats Details cues control & full range but not lock extension Resistance 50 # (new bands), L3 band around knees Shuttle Recovery Unstable Platform Reps/Time 2 x 10 Unilateral Squats Details B: cues full range and ecc control, glut engagement Resistance 37# # (new bands) Reps/Time 10 Therapeutic Exercises Sitting Exercises foot to opposite knee Sitting Exercise foot toward opposite knee Name Side bilateral Resistance AROM Reps/Minutes x 5 AROM, x 1 AARom Comments Pt progressing,reached R to knee with self assist of hand, L to upper garcia hip abduction Side bilateral Resistance L3 band Reps/Minutes 60 hold Standing Exercises Mini Lunge Standing Exercise mini lunge at bar Name Side bilateral Equipment Used bar prn Reps/Minutes 10 Comments cue to use bar for balance, step out length, slow and steady. Resisted Stepping Standing Exercise Monster walks with wide stance Name Side bilateral Resistance L3 band Reps/Minutes 2 x 24' Comments VC for wide, low stance, knees over toes. Pt able to maintain good stance. squat Standing Exercise moderate squat Name Side bilateral Resistance 5# dumbell held at chest Equipment Used pt at mirror to watch form Reps/Minutes 2 x 5 Comments Challenging for pt, good form especially using mirror. VC to go as deeper. Therapeutic Activity Therapeutic Activity on/off floor Name on/off floor Reps/Minutes 1 x trial Comments Trialed 1/2 kneel position for rising from floor, pt not able to rise from 1/2 knee with R leg fw, switch to QP position to low squat to rise. Pt reports this was the position she will use. Manual Therapy Treatment Consent Patient gave verbal Yes consent for manual treatment Soft Tissue Mobilization L hip Body Location L hip Mobilization Type Cross-Friction,Rolling,Strumming Intensity/Depth Moderate Body Position R side lying with pillow btwn knees Comments Pt requested STM due to sore, itchy L hip. Worked around scar to mobilize tissue, STM to gluts to mobilize mm. Self-Care/Home Management Treatment Activities Self-Care/Home Reviewed HEP of seated foot to opposite knee, deep Management squat to pick up operator object, side leg raise in standing, pt Activities also walking more. Added in to consider reaching and lifting activities needed at home for next session work . Physical Therapy Assessment Goals mobility Correction Goal (LTG) Pt will report no difficulty w/clipping toe nails or with shoes/socks donning 03/18-hasn't worn anything besides crocs. some hip tightness when simulates tying shoes LTG Duration 05/18 balance Short Term Goal (STG Pt will be able to LLE SLS for 5 sec ) 03/23 progressing, able to complete 5 sec with practice and vc for posture. STG Duration achieved 03/18 Laboratory Administrative Director Goal (LTG) Pt will be able to do BLE SLS for 10 sec ea to show improved balance 03/23 8 sec L, 5 sec R LTG Duration 05/13 strength Short Term Goal (STG Pt will demonstrate independence w/HEP by being able to ) perform with no more than min cues. STG Duration 03/20 Correction Goal (LTG) Pt will score at least 4+/5 on all BLE MMT and at least 3/5 LPM to show improved strength to allow pt to 03/18-improving LTG Duration 05/13 LEFS Impairment 30/80 Short Term Goal (STG Pt will improve LEFS score to at least 40 to show ) improved functional ability. 03/18-39/ STG Duration 03/20 Correction Goal (LTG) Pt will improve LEFS score to at least 60 to show improved functional ability. LTG Duration 05/18 Assessment Summary Assessment Pt making progress toward mobility goal of foot to opposite knee for hip ER, able to self-assist R foot to L knee, L foot almost reaching knee, ER ROM improved in both hips. Also progressing in mini lunge form and endurance, able to increase to 10 lunges. Pt completing moderate squats with 5# wt with no LOB or UE support needed, good form maintained. Physical Therapy Plan Frequency and Duration Frequency of 2x/Week Treatment Duration of 12 treatment (weeks) Plan of Care Start 02/17/25 Date Plan of Care End 05/18/25 Date Next Visit Focus/Plan Next Visit Plan Progress squat and lunge activities, included functional lifting to mimic home environment, progress balance/SLS stance work from 03/23. Check on scar symptoms/soreness in L hip.
--- NOTE | 2025-03-30 09:47 | PT.OTN ---
Current Diagnoses Presence of left artificial hip joint (03/30/25) Physical Therapy Treatment Note PT OP: Lower Back/Lower Extremity Start: 02/16/25 17:57 Freq: Status: Active Protocol: Document 03/30/25 08:35 [facility] (Rec: 03/30/25 09:47 [facility] [id number]) Out-Patient Physical Therapy Visit Information Visit Information Visit Type Treatment Note Visit Start Time 09:06 Visit Stop Time 09:45 Visit Number 11 Number of MILKER MACHINE Visits 0 Progress Note Due 04/17/25 OP-PT Subjective Patient Comments Patient Comments still feels tightness when putting on shoes. Went back to work riday and did a lot of walking at work and felt ok Gym Equipment Shuttle Rebound balance Comments alt september x1 Shuttle Balance Red Details gradually dec UE support Comments Fwd & side: WBOS & NBOS fwd: staggered stance B Therapeutic Exercises Supine Exercises stretch Supine Exercise Name 1. SKTC 2. piriformis Side left Reps/Minutes 30 sec ea Standing Exercises Mini Lunge Standing Exercise mini lunge at bar Name Side bilateral Equipment Used bar prn Reps/Minutes 10 Comments cue to use bar for balance, step out length slow and steady. step up Standing Exercise 1. step up to SLS 2. lat step up Name Side bilateral Resistance 8 in step Equipment Used fingers on rail with fwd Reps/Minutes 12 Comments cues control squat Standing Exercise moderate squat Name Side bilateral Resistance 5# dumbell held at chest Equipment Used pt at mirror to watch form Reps/Minutes 15 Comments cues depth Manual Therapy Treatment Consent Patient gave verbal Yes consent for manual treatment Soft Tissue Mobilization L hip Body Location L HS and iliacus Mobilization Type Sustained Pressure Body Position Supine Comments w/hip flex Joint Mobilizations hip Comments L inf c/r Neuro Re-Education Treatment Balance Activities Foam Surface blue, green, lopez and black foam Reps/Duration 8x Comments walk across foam Physical Therapy Assessment Goals mobility Advertising Traffic Manager Goal (LTG) Pt will report no difficulty w/clipping toe nails or with shoes/socks donning 03/18-hasn't worn anything besides crocs. some hip tightness when simulates tying shoes LTG Duration 11 balance Short Term Goal (STG Pt will be able to LLE SLS for 5 sec ) 03/23 progressing, able to complete 5 sec with practice and vc for posture. STG Duration achieved 03/18 Custodial Goal (LTG) Pt will be able to do BLE SLS for 10 sec ea to show improved balance 03/23 8 sec L, 5 sec R LTG Duration 05/13 strength Short Term Goal (STG Pt will demonstrate independence w/HEP by being able to ) perform with no more than min cues. STG Duration 03/20 Advertising Traffic Manager Goal (LTG) Pt will score at least 4+/5 on all BLE MMT and at least 3/5 LPM to show improved strength to allow pt to 03/18-improving LTG Duration 05/13 LEFS Impairment 30/80 Short Term Goal (STG Pt will improve LEFS score to at least 40 to show ) improved functional ability. 03/18-39 STG Duration 03/20 Custodial Goal (LTG) Pt will improve LEFS score to at least 60 to show improved functional ability. LTG Duration 05/18 Assessment Summary Assessment Pt did well with strengthening exercises today but requires cues for control. balance still a limiter along w/flexibility. Physical Therapy Plan Frequency and Duration Frequency of 2x/Week Treatment Duration of 12 treatment (weeks) Plan of Care Start 02/17/25 Date Plan of Care End 05/18/25 Date Next Visit Focus/Plan Next Note Type Treatment Note Next Visit Plan Progress squat and lunge activities, included functional lifting to mimic home environment, progress balance/SLS stance work from 03/23. Check on scar symptoms/soreness in L hip.
--- NOTE | 2025-04-01 15:07 | PT.OTN ---
Current Diagnoses Presence of left artificial hip joint (04/01/25) Physical Therapy Treatment Note PT OP: Lower Back/Lower Extremity Start: 02/16/25 17:57 Freq: Status: Active Protocol: Document 04/01/25 08:19 PD (Rec: 04/01/25 09:05 PD [id number]) Out-Patient Physical Therapy Visit Information Visit Information Visit Type Treatment Note Visit Note TURNER Mujica led tx session with direct supervision by YOMI Youssef and pt permission. Visit Start Time 08:19 Visit Stop Time 09:00 Visit Number 12 Number of SOLID DIE CUTTER Visits 1 Progress Note Due 04/17/25 OP-PT Subjective Patient Comments Patient Comments Pt doing well, back to work for 3 days. Has some B LBP when getting in and out of car, started wearing running shoes, able to get shoes on okay. PT does bring both legs over when getting out of car. Pt has not been able to be very active since last visit, just working and up on feet a lot at work. Does try to do foot slide up leg for HEP. Takes elevator at work. Therapeutic Exercises Supine Exercises PPT Supine Exercise Name PPT Side bilateral Reps/Minutes x 10 Comments VC and TC for TA activation, scapula into table Sitting Exercises Sit to Stand Sitting Exercise Sit to Stands with 5# dumbell at chest Name Side bilateral Resistance 5# Equipment Used 17.5 chair, 5# dumbell Reps/Minutes 6, AROM from 16 surface x 1 trial Comments Cues for lean forward, foot placement, slow down foot to opposite knee Sitting Exercise Foot to opposite knee Name Side bilateral Resistance AAROM Reps/Minutes 60 hold on L, 30 hold on R Comments Pt able to reach upper garcia with AROM, able to reach thigh with self assist hip abduction Side bilateral Resistance L3 band Reps/Minutes 60 hold Standing Exercises PPT Standing Exercise PPT with scap retraction and chin tuck at wall Name Side bilateral Equipment Used wall Reps/Minutes x 10 Comments VC and TC for PPT and scap ret., pt struggles to attain PPT in standing Resisted Stepping Standing Exercise Monster walks with wide stance Name Side bilateral Resistance L3 band at thighs Reps/Minutes 3 x 24' Comments VC for wide, low stance, knees over toes. Trialed band at ankles. step up Standing Exercise 1. Step up and down 4, 6, 8 stairs 2. Step up and Name step lat to Bosu Side bilateral Resistance Varied Equipment Used Hand rail as needed Reps/Minutes 10 minutes Comments cues for UE only as needed, balance and and posture, foot placement squat Standing Exercise Mini squat Name Side bilateral Resistance 7# dumbell held at chest Equipment Used pt at mirror to watch Reps/Minutes 1 x 15, 1 x 10 Comments Pt having R knee pn with deeper squat, cue stay in pn free zone, hip hinge Therapeutic Activity Therapeutic Activity Exit car Name Simulate exit digital cartographic technician side Reps/Minutes 3 Comments Cues for TA activation, safe door pushing, scoot fw to edge of seat after turn, keep feet and legs together while turning, lean fw and stand. 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 Physical Therapy Assessment Goals mobility Senior Applications Developer Goal (LTG) Pt will report no difficulty w/clipping toe nails or with shoes/socks donning 03/18-hasn't worn anything besides crocs. some hip tightness when simulates tying shoes 04/01/25: Pt able to shane running shoes, self assist foot to knee B w/o pn. LTG Duration 05/18, 04/01/25 goal met balance Short Term Goal (STG Pt will be able to LLE SLS for 5 sec ) 03/23 progressing, able to complete 5 sec with practice and vc for posture. STG Duration achieved 03/18 Senior Applications Developer Goal (LTG) Pt will be able to do BLE SLS for 10 sec ea to show improved balance 03/23 8 sec L, 5 sec R LTG Duration 05/13 strength Short Term Goal (STG Pt will demonstrate independence w/HEP by being able to ) perform with no more than min cues. STG Duration 03/20 Senior Applications Developer Goal (LTG) Pt will score at least 4+/5 on all BLE MMT and at least 3/5 LPM to show improved strength to allow pt to 03/18-improving LTG Duration 05/13 LEFS Impairment 30/80 Short Term Goal (STG Pt will improve LEFS score to at least 40 to show ) improved functional ability. 03/18- STG Duration 03/20 Senior Applications Developer Goal (LTG) Pt will improve LEFS score to at least 60 to show improved functional ability. LTG Duration 05/18 Assessment Summary Assessment Pt progressed with squat resistance from 5# to 7# wt and 10 to 15 reps, unable to do deeper squat today d/t knee pn. Progressing with stairs, able to go up and down 6 - 8 stairs with no UE but 8 x 3 is challenging. Meeting goal of foot on knee for donning socks and shoes with self assist, can hold for 30 B. Pt posture in standing challenging to engage TA and do PPT, able to complete in supine. Physical Therapy Plan Frequency and Duration Frequency of 2x/Week Treatment Duration of 12 treatment (weeks) Plan of Care Start 02/17/25 Date Plan of Care End 05/18/25 Date Next Visit Focus/Plan Next Note Type Treatment Note Next Visit Plan Assess work activity tolerance, use of stairs, LBP when exiting car, posture, knee pn. Progress glut strength, hip ER mobility, functional activities needed for work . Assess ability to complete HEP outside of work hours.
--- NOTE | 2025-04-07 12:30 | PT.OTN ---
Current Diagnoses Presence of left artificial hip joint (04/07/25) Physical Therapy Treatment Note PT OP: Lower Back/Lower Extremity Start: 02/16/25 17:57 Freq: Status: Active Protocol: Document 04/07/25 09:02 PD (Rec: 04/07/25 09:59 PD [id number]) Out-Patient Physical Therapy Visit Information Visit Information Visit Type Treatment Note Visit Note TURNER Mujica led tx session with direct supervision by YOMI Youssef and pt permission. Visit Start Time 09:02 Visit Stop Time 09:42 Visit Number 13 Number of PLANT WORKER Visits 2 Progress Note Due 04/17/25 OP-PT Subjective Patient Comments Patient Comments Pt reports work has been going well, but LB was painful and tired by end of the week. Hip pain no work, maybe better. No doing any long walks as working all day. Uses ice to low back for 15 minutes in evenings with ice pack sitting back at couch. It seems better today after Sunday this week. Going up and down stairs at work, more slowly but able to do. For HEP doing standing hip abduction exercises daily but only exercise doing last few days. Therapeutic Exercises Standing Exercises Hip Abduction Standing Exercise Hip adbduction with straight leg out to side Name Side bilateral Resistance BW Reps/Minutes x 5 Comments Cues for slow out and back, stay pain free, glute med isometric Standing Exercise Glut med isometric at wall Name Side bilateral Reps/Minutes 60 second hold with L leg iso, 20 second hold with R due to pn in R thigh Comments Instructed in positioning, level pelvis, good posture. 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 Pt is using good posture with legs together, keeping spine neutral. Pt reports she has no pain during this activity. Cues for TA activation, keep spine neutrals to prevent LBP. Gait Training Gait Activity Dynamic Gait Description Up/Dn 28x6 sts, level [id number]'x4, [id number]', [id number]'x4 , [id number] Surface Stairs, level carpet to tile floor Distance/Duration See above Comments Cues for posture, level pelvis, gait tempo, core activation for balance. Pt has slight LOB with tandem, self corrected with UE at wall, slow pace for backward, tandem, and grapevine. Pt able to go up and down 28 steps without use of UE, using good reciprocal gait, good pacing and posture. Neuro Re-Education Treatment Balance Activities Shuttle Balance Details WBOS, NBOS, B tandem, side to side Surface red chains Reps/Duration Shuttle Balance Comments Pt holding without UE support for WBOS 30, NBOS 30, Tandem L fw 15, Tandem R fw 25, Side with WBOS 3-10 for 60 total. Cues for posture, looking ahead. Multiple holds in each position, total 8 minutes. Physical Therapy Assessment Goals mobility Supervisor Publications Production Goal (LTG) Pt will report no difficulty w/clipping toe nails or with shoes/socks donning 03/18-hasn't worn anything besides crocs. some hip tightness when simulates tying shoes 04/01/25: Pt able to shane running shoes, self assist foot to knee B w/o pn. LTG Duration 05/18, 04/01/25 goal met balance Short Term Goal (STG Pt will be able to LLE SLS for 5 sec ) 03/23 progressing, able to complete 5 sec with practice and vc for posture. STG Duration achieved 03/18 Mcc Goal (LTG) Pt will be able to do BLE SLS for 10 sec ea to show improved balance 03/23 8 sec L, 5 sec R LTG Duration 05/13 strength Short Term Goal (STG Pt will demonstrate independence w/HEP by being able to ) perform with no more than min cues. STG Duration 03/20 Supervisor Publications Production Goal (LTG) Pt will score at least 4+/5 on all BLE MMT and at least 3/5 LPM to show improved strength to allow pt to 03/18-improving LTG Duration 05/13 LEFS Impairment 30/80 Short Term Goal (STG Pt will improve LEFS score to at least 40 to show ) improved functional ability. 03/18- STG Duration 03/20 Supervisor Publications Production Goal (LTG) Pt will improve LEFS score to at least 60 to show improved functional ability. LTG Duration 05/18 Assessment Summary Assessment Pt progressing in functional activities at work, using stairs up and down during tx and at work without use of UE, maintaining even reciprocal stepping pattern. Tx focused on balance challenges, pt able to balance w/o UE support on Shuttle Balance in WBOS and NBOS stance, Tandem with L fw and side to site still challenging for pt to hold > 10 sec., tandem, backward, grapevine walking all more challenging to pt but able to do with slow pace. Worked on fw walking pace, encouraging pt to use step pace of 100 - 110 bpm. Pt able to increase pace with clapping and side by side pacing from SPTA. Physical Therapy Plan Frequency and Duration Frequency of 2x/Week Treatment Duration of 12 treatment (weeks) Plan of Care Start 02/17/25 Date Plan of Care End 05/18/25 Date Therapeutic Interventions Therapeutic Balance Training,Gait Training,Home Exercise Program, Interventions Joint Mobilizations,Manual Therapy,Neuromuscular Re- education,Patient/Caregiver Education,Self-Care/Home Management,Soft Tissue Mobilization,Taping,Therapeutic Activities,Therapeutic Exercises Modalities Cold Pack/Ice Massage,Electric Stimulation,Hot Packs Next Visit Focus/Plan Next Note Type Treatment Note Next Visit Plan Pt to complete progress note at next appt. Asses work and home activity tolerance and LBP, hip pn. Continue to progress balance, gait challenges.
--- NOTE | 2025-04-13 16:01 | PT.OTN ---
Current Diagnoses Presence of left artificial hip joint (04/13/25) Physical Therapy Treatment Note PT OP: Lower Back/Lower Extremity Start: 02/16/25 17:57 Freq: Status: Active Protocol: Document 04/13/25 13:03 PD (Rec: 04/13/25 13:46 PD [id number]) Out-Patient Physical Therapy Visit Information Visit Information Visit Type Treatment Note Visit Note TURNER Mujica led tx session with direct supervision by CORE JAVA SOFTWARE ENGINEER Domonique and pt permission. Visit Start Time 13:03 Visit Stop Time 13:41 Visit Number 14 Number of CORE JAVA SOFTWARE ENGINEER Visits 3 Progress Note Due 04/17/25 OP-PT Subjective Patient Comments Patient Comments Pt feeling pretty good. She is walking pretty quickly and going up and down steps at work. She doesn't complete much HEP due to working all day. PT Radha met with pt and discussed if she feel ready to be discharged from PT since she is meeting her goals. Patient feels that she is doing well and if she has any further issues she will seek another referral to therapy. Patient Questionnaires Lower Extremity Functional Scale LEFS Score 61/80 Balance Tests Single Limb Standing Single Limb- Right 9 sec Single Limb- Left 14 sec Hip Strength Hip Manual Muscle Testing Right Flexion (L2) 4+ Good+ Abduction 4+ Good+ External Rotation 5 Normal Internal Rotation 5 Normal Comments done by PT Radha Nj Left Flexion (L2) 4+ Good+ Abduction 4 Good External Rotation 4+ Good+ Internal Rotation 5 Normal Knee Strength Knee Manual Muscle Testing Right Flexion (S2) 5 Normal Extension (L3) 5 Normal Left Flexion (S2) 5 Normal Extension (L3) 5 Normal Therapeutic Exercises Supine Exercises PPT Supine Exercise Name PPT - keep with HEP Side bilateral Reps/Minutes x 10 Comments cues for scapula, hands to feel TA activaiton Sitting Exercises hip abduction Sitting Exercise Review for HEP Name Side bilateral Resistance L5 band Reps/Minutes 60 hold Comments HO and L5 band provided for HEP Standing Exercises Hip Abduction Standing Exercise Hip adbduction with straight leg out to side - add to Name HEP with HO Side bilateral Resistance L 3 band Reps/Minutes 2 x 5 Comments Cues for slow out and back, stay pain free, Mini Lunge Standing Exercise mini lunge at chair - added to HEP with HO Name Side bilateral Equipment Used chair prn Reps/Minutes 10 Comments cue to use chair for balance, step out length slow and steady. squat Standing Exercise Mini squat - review for HEP with HO Name Side bilateral Resistance 10# dumbell held at chest Equipment Used pt at mirror to watch Reps/Minutes 2 x 10 Comments Pt having R knee pn with deeper squat, cue stay in pn free zone, hip hinge Therapeutic Activity Therapeutic Activity MMT Name LE MMT Reps/Minutes 7 Comments PT Radha completed for assessment of functional goals . LEFS Name LEFS interview Reps/Minutes 8 Comments SPTA completed interview with pt. Physical Therapy Assessment Goals mobility Usp Goal (LTG) Pt will report no difficulty w/clipping toe nails or with shoes/socks donning 03/18-hasn't worn anything besides crocs. some hip tightness when simulates tying shoes 04/01/25: Pt able to shane running shoes, self assist foot to knee B w/o pn. LTG Duration 05/18, 04/01/25 goal met balance Short Term Goal (STG Pt will be able to LLE SLS for 5 sec ) 03/23 progressing, able to complete 5 sec with practice and vc for posture. 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 LTG Duration 05/13 LEFS Impairment 30/80 Short Term Goal (STG Pt will improve LEFS score to at least 40 to show ) improved functional ability. 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 04/13/25 Goal met LEFS 61/80 LTG Duration 05/18, 04/13/25 Goal Met Assessment Summary Assessment Pt has met all goals, with exception of SLS on R, today it is 9 seconds, goal was 10, and L hip adb is at 4. Pt has progressed well and is at functional level for work and home activities. She has no pain with rest or activities. She agrees that she is ready for discharge from therapy. Physical Therapy Plan Frequency and Duration Frequency of 2x/Week Treatment Duration of 12 treatment (weeks) Plan of Care Start 02/17/25 Date Plan of Care End 05/18/25 Date Therapeutic Interventions Therapeutic Balance Training,Gait Training,Home Exercise Program, Interventions Joint Mobilizations,Manual Therapy,Neuromuscular Re- education,Patient/Caregiver Education,Self-Care/Home Management,Soft Tissue Mobilization,Taping,Therapeutic Activities,Therapeutic Exercises Modalities Cold Pack/Ice Massage,Electric Stimulation,Hot Packs Next Visit Focus/Plan Next Note Type Treatment Note Next Visit Plan PT to discharge.
--- NOTE | 2025-04-13 18:17 | PT.OPDS ---
Current Diagnoses Presence of left artificial hip joint (04/13/25) Visit Care Team Role Provider Type Trciia Weinstein PA-C Family Provider Advanced Professional Golf [employer] Player Primary Care Provider Specialty: Medical Address: [address] [place] [address], [address], [place], [address] Email: [email or web address] Gray Allred DO Attending Provider Non-Staff Referring Provider Specialty: Orthopedics Address: [address] [place] [address], [place], [address] Email: Visit Number Visit Number 14 Discharge Summary PT OP: Lower Back/Lower Extremity Start: 02/16/25 17:57 Freq: Status: Active Protocol: Document 04/13/25 18:16 [facility] (Rec: 04/13/25 18:17 [facility] [id number]) Out-Patient Physical Therapy Visit Information Visit Information Visit Type Discharge Summary Physical Therapy Assessment Goals mobility Retirement Goal (LTG) Pt will report no difficulty w/clipping toe nails or with shoes/socks donning 03/18-hasn't worn anything besides crocs. some hip tightness when simulates tying shoes 04/01/25: Pt able to shane running shoes, self assist foot to knee B w/o pn. LTG Duration 05/18, 04/01/25 goal met balance Short Term Goal (STG Pt will be able to LLE SLS for 5 sec ) 03/23 progressing, able to complete 5 sec with practice and vc for posture. STG Duration achieved 03/18 Retirement Goal (LTG) Pt will be able to do BLE SLS for 10 sec ea to show improved balance 03/23 8 sec L, 5 sec R 04/13/25: R 9 sec, L 14 sec LTG Duration 05/13 Goal met on L strength Short Term Goal (STG Pt will demonstrate independence w/HEP by being able to ) perform with no more than min cues. STG Duration achieved 04/13-adjusted for continuing Neurology Nurse Goal (LTG) Pt will score at least 4+/5 on all BLE MMT and at least 3/5 LPM to show improved strength to allow pt to 03/18-improving 04/13/25 Goal met with 4+ and 5 on all with exception of L abduction at /. LTG Duration 05/13 LEFS Impairment 30 Short Term Goal (STG Pt will improve LEFS score to at least 40 to show ) improved functional ability. 03/18-04/13/25 Goal met LEFS 61/80 STG Duration goal met Neurology Nurse Goal (LTG) Pt will improve LEFS score to at least 60 to show improved functional ability. 04/13/25 Goal met LEFS 61/80 LTG Duration 05/18, 04/13/25 Goal Met Assessment Summary Assessment At this time, pt has met most goals and has HEP to cont strengthening at home. She is back to work and doing small walks. She is noting no significant pain. DC to HEP at this time Physical Therapy Plan Discharge Physical Therapy Discharge Reasons Goals Met
== END 2025-04-14 10:42 | disposition home or self-care (01) ==
LOC: PHYS 13:00
PROVIDERS: Family Provider Physician Assistant; PCP Physician Assistant; Referring Provider Orthopaedic Surgery; Visit Provider Orthopaedic Surgery
DX: Z96.642 Presence of left artificial hip joint (principal)
CPT/HCPCS: 97110; 97112; 97116; 97140; 97162; 97530; 97535

== ENCOUNTER 2025-04-17 14:17 | Emergency (ER) | payer OTHER, SELFPAY ==
[2025-04-17 14:19] VITALS: BP 123/59; PULSE 83; RESP 16; TEMP 36.6; O2SAT 97; BMI 28.3
--- NOTE | 2025-04-17 14:23 | DI.RAD.S_ITS ---
PROCEDURE: XR HIP W PEL IF DONE LT 3V INDICATIONS: fall, recent left hip replacement in december TECHNIQUE: AP pelvis and lateral view of the left hip acquired. Three images total [facility] 2V, 08/15/2024, 17:35. FINDINGS: Bones: Patient is status post left hip arthroplasty, with hardware components in expected positions. The hip joint appears congruent. The visualized bony structures appear intact. Degenerative changes lower lumbar spine. Right hip arthroplasty without radiographic evidence of complication IMPRESSION: Expected post-operative appearance of a hip arthroplasty. Dictated by: Hemal Choe M.D. on 04/17/2025 at 14:50 Approved by: Hemal Choe M.D. on 04/17/2025 at 14:51
--- NOTE | 2025-04-17 14:24 | DI.CT.S_ITS ---
PROCEDURE: CT HEAD/BRAIN WO CON INDICATIONS: fall hit head/large hematoma/pain/headache TECHNIQUE: Noncontrast 4.5 mm thick angled axial sections acquired from the foramen magnum to the vertex, with coronal and sagittal reformats. For radiation dose reduction, the following was used: automated exposure control, adjustment of mA and/or kV according to patient size. COMPARISON: None. FINDINGS: Image quality: Diagnostic. Some images are limited by beam hardening artifacts most notably at the base of the skull. Left posterior occipital scalp hematoma measures up to 1 centimeter depth. Ventricles and cortical sulci are mildly dilated commonly represents a pattern of atrophy. The orbits, calvarium, paranasal sinuses, mastoid air cells, middle ear cavities normal. No CT evidence of intracranial hemorrhage, mass lesion, mass effect, acute or subacute infarct. IMPRESSION: Left occipital scalp hematoma. No CT evidence of intracranial hemorrhage. If symptoms persist or worsen, or there is high clinical suspicion of intracranial abnormality, MRI could be performed. Dictated by: Hemal Choe M.D. on 04/17/2025 at 14:47 Approved by: Hemal Choe M.D. on 04/17/2025 at 14:49
[2025-04-17 16:57] VITALS: BP 109/69; PULSE 65; RESP 16; TEMP 37; O2SAT 98
--- NOTE | 2025-04-17 17:56 | ED.FALL ---
HPI - Fall <Lupe Frazier PA-C - Last Filed: 04/17/25 18:52> General Chief Complaint: Fall Stated Complaint: Fell backward down 4 steps,hit head,-loc,-thinners Time Seen by Provider: 04/17/25 17:27 History of Present Illness HPI Narrative: Ms. Nogueira is a pleasant 64-year-old female with a past medical history of bilateral hip replacements, hyperlipidemia who presents to the emergency department via EMS from home after a fall backwards causing left hip and scalp pain. Patient states that she was with her granddaughter and she accidentally stepped backwards off of a porch step causing her to fall down those 4 steps hitting her left hip followed by her scalp. There was no loss of consciousness, no blood thinners. Patient had her granddaughter call 911 and stayed on the ground until rescue came. At this time she overall feels pretty well, has been able to ambulate. No nausea or vomiting. No visual disturbance. She has swelling on the left posterior scalp and pain of the left glute. No neck pain, chest pain, abdominal pain, extremity pain numbness tingling weakness. Related Data Home Medications ?Medication ?Instructions ?Recorded ?Confirmed CA PANTOTHENATE/FOLIC ACID/VIT 1 tab PO QDAY ##0 12/24/12 02/06/25 (MULTIVITAMIN) Fish Oil 1,000 mg PO QDAY ##0 12/24/12 02/06/25 meloxicam 15 mg tablet mg PO DAILY 08/15/24 02/06/25 Held on 09/29/24. Instructions: Home Medication placed on hold at Doctor's office terbinafine HCl 250 mg tablet mg PO 09/29/24 02/06/25 Previous Rx's ?Medication ?Instructions ?Recorded omeprazole 20 mg capsule,delayed 20 mg PO DAILY PRN reflux #30 caps 07/21/22 release celecoxib 200 mg capsule 200 mg PO BID #60 caps 06/11/24 gabapentin 300 mg capsule 300 mg PO BEDTIME #30 caps 06/11/24 fluoxetine 10 mg capsule 10 mg PO DAILY #90 caps 12/08/24 meloxicam 7.5 mg tablet 7.5 mg PO DAILY 14 days #14 tabs 04/17/25 Allergies Allergy/AdvReac Type Severity Reaction Status Date / Time sertraline AdvReac Mild DIARRHEA Verified 02/06/25 17:00 Review of Systems <Lupe Frazier PA-C - Last Filed: 04/17/25 18:52> Review of Systems ROS Unobtainable: All systems reviewed & are unremarkable except as noted in HPI and below Patient History <Lupe Frazier PA-C - Last Filed: 04/17/25 18:52> Medical History COVID-19 virus infection Achilles tendinitis, right leg Restless leg Surgical History Hip joint replacement status Family History Child Age: 37 Bipolar 1 disorder Child Age: 29 Eczema Hx of seasonal allergies Mother Age: 83 High cholesterol Hiatal hernia Malignant neoplasm of female breast, unspecified laterality, unspecified site of breast Sister Age: 56 Seizures Social History marital status: alcohol intake: never substance use type: does not use alcohol intake frequency: other Exam <Lupe Frazier PA-C - Last Filed: 04/17/25 18:52> Narrative Exam Narrative: GENERAL: 64 year old patient appears stated age. Well-developed patient, in no acute distress. HEAD: Palpable hematoma on left occipital scalp, no overlying wound, no palpable skull defect. EYES: PERRL. Extraocular motions intact. No scleral icterus. No injection or drainage. ENT: Pearly more TMs bilaterally, no hemotympanum. Nose without bleeding, purulent drainage. Throat without erythema, tonsillar hypertrophy or exudate. Airway patent. NECK: Trachea midline. Cervical ROM intact. No midline cervical tenderness. CARDIOVASCULAR: Regular rate and rhythm. RESPIRATORY: ?Nonlabored respirations. ?Speaking in clear, full sentences. ?Clear to auscultation. Breath sounds equal bilaterally. No wheezes, rales, or rhonchi. ? GASTROINTESTINAL: Abdomen soft, non-tender, nondistended. EXTREMITIES: No tenderness to palpation bilateral upper and lower extremities with the exception of left glute/SI joint region. Superficial abrasion on right elbow with full range of motion. BACK: Nontender without deformity or crepitance. No flank tenderness. NEURO: AOx3. ?Clear speech. ?Moves all 4 extremities appropriately. SKIN: Warm, dry, no bleeding lacerations. Initial Vital Signs Initial Vital Signs: Vital Signs Temperature 97.8 F 04/17/25 14:19 Pulse Rate 83 04/17/25 14:19 Respiratory Rate 16 04/17/25 14:19 Blood Pressure 123/59 L 04/17/25 14:19 Pulse Oximetry 97 04/17/25 14:19 Oxygen Delivery Method Room Air 04/17/25 14:19 <Bobbi Diallo DO - Last Filed: 04/17/25 23:26> Initial Vital Signs Initial Vital Signs: Vital Signs Temperature 97.8 F 04/17/25 14:19 Pulse Rate 83 04/17/25 14:19 Respiratory Rate 16 04/17/25 14:19 Blood Pressure 123/59 L 04/17/25 14:19 Pulse Oximetry 97 04/17/25 14:19 Oxygen Delivery Method Room Air 04/17/25 14:19 Course <Lupe Frazier PA-C - Last Filed: 04/17/25 18:52> Orders Ordered: Discontinued Medications Ibuprofen (Ibuprofen 400 Mg Tablet) 400 mg PO NOW ONE Stop: 04/17/25 18:11 Last Admin: 04/17/25 18:16 Dose: 400 mg Documented By: BLAIR Vital Signs Vital signs: Vital Signs - 8 hr 04/17/25 16:57 04/17/25 18:27 Temperature 98.6 F Pulse Rate 65 63 Respiratory Rate 16 18 Blood Pressure 109/69 115/70 Pulse Oximetry 98 96 Oxygen Delivery Method Room Air Room Air <Bobbi Diallo DO - Last Filed: 04/17/25 23:26> Orders Ordered: Discontinued Medications Ibuprofen (Ibuprofen 400 Mg Tablet) 400 mg PO NOW ONE Stop: 04/17/25 18:11 Last Admin: 04/17/25 18:16 Dose: 400 mg Documented By: BLAIR Vital Signs Vital signs: Vital Signs - 8 hr 04/17/25 16:57 04/17/25 18:27 Temperature 98.6 F Pulse Rate 65 63 Respiratory Rate 16 18 Blood Pressure 109/69 115/70 Pulse Oximetry 98 96 Oxygen Delivery Method Room Air Room Air MDM - Fall <LA Moreira Last Filed: 04/17/25 18:52> Medical Records Attestation: I reviewed the patient's medical records. Imaging Data CT scan - head: Radiologist's Impression: PROCEDURE: CT HEAD/BRAIN WO CON INDICATIONS: fall hit head/large hematoma/pain/headache TECHNIQUE: Noncontrast 4.5 mm thick angled axial sections acquired from the foramen magnum to the vertex, with coronal and sagittal reformats. For radiation dose reduction, the following was used: automated exposure control, adjustment of mA and/or kV according to patient size. COMPARISON: None. FINDINGS: Image quality: Diagnostic. Some images are limited by beam hardening artifacts most notably at the base of the skull. Left posterior occipital scalp hematoma measures up to 1 centimeter depth. Ventricles and cortical sulci are mildly dilated commonly represents a pattern of atrophy. The orbits, calvarium, paranasal sinuses, mastoid air cells, middle ear cavities normal. No CT evidence of intracranial hemorrhage, mass lesion, mass effect, acute or subacute infarct. IMPRESSION: Left occipital scalp hematoma. No CT evidence of intracranial hemorrhage. If symptoms persist or worsen, or there is high clinical suspicion of intracranial abnormality, MRI could be performed. Dictated by: Hemal Choe M.D. on 04/17/2025 at 14:47 Approved by: Hemal Choe M.D. on 04/17/2025 at 14:49 XR L Hip/Pelvis: Radiologist's Impression: PROCEDURE: XR HIP W PEL IF DONE LT 3V INDICATIONS: fall, recent left hip replacement in december TECHNIQUE: AP pelvis and lateral view of the left hip acquired. Three images total COMPARISON: [facility], , XR HIP W PEL IF DONE LT 2V, 08/15/2024, 17:35. FINDINGS: Bones: Patient is status post left hip arthroplasty, with hardware components in expected positions. The hip joint appears congruent. The visualized bony structures appear intact. Degenerative changes lower lumbar spine. Right hip arthroplasty without radiographic evidence of complication IMPRESSION: Expected post-operative appearance of a hip arthroplasty. Dictated by: Hemal Choe M.D. on 04/17/2025 at 14:50 Approved by: Hemal Choe M.D. on 04/17/2025 at 14:51 MDM Narrative Medical decision making narrative: 64-year-old female with a past medical history of bilateral hip replacements, hyperlipidemia who presents to the emergency department via EMS from home after a fall backwards causing left hip and scalp pain. Differential diagnosis includes but is not limited to scalp hematoma, ICH, concussion, left hip sprain, strain, fracture, contusion, etc. On exam patient is in no acute distress, nontoxic-appearing, all vital signs within normal limits. CT head and left hip x-ray/pelvis x-ray obtained in triage. Patient is not on blood thinners, had no LOC, and feels relatively well. She has a palpable hematoma in the left occipital scalp, superficial abrasion of the right elbow, tenderness to palpation of the left glute/SI joint region with no bruising or wounds. She is ambulatory. No spinal tenderness. No open wounds. X-ray hip/pelvis reveals expected postoperative appearance of hip arthroplasty. Head CT reveals left occipital scalp hematoma with no CT evidence of intracranial hemorrhage. Patient is requesting anti-inflammatory pain medication. We will treat with ibuprofen, recommended Tylenol, meloxicam for continued hip pain, rest, hydration, ice to areas of swelling specifically the hematoma. Discussed very strict ER return precautions. Patient verbalized understanding of all information agreeable with the plan, she is ambulatory and stable for discharge home with her son. Discharge Plan Departure Patient Disposition: Home Clinical Impression: Hematoma of occipital region of scalp, Hip pain, left Fall Qualifiers: Encounter type: initial encounter Qualified Code(s): W19.XXXA - Unspecified fall, initial encounter Instructions: DI for Hematoma (Bruise) Activity Restrictions/Additional Instructions: Dear Jero, Thank you for coming to emergency department. Very sorry that you had a fall today. We obtain x-ray of your hip/pelvis and CT scan of your head. You did not have any skull fracture or brain bleed, but you do have a hematoma on the scalp. Please apply ice to the hematoma to help the swelling go down. Your hip x-ray does not reveal any bone abnormalities. You have been prescribed meloxicam to help with the pain, you may also use Tylenol to help as well. Please rest, hydrate, be careful to avoid any subsequent head trauma for at least the next week. Please return to the emergency department immediately if you develop any new or worsening symptoms, severe pain, vomiting, or any concerns. Please follow up with your primary care doctor within the next 2-3 days for ER follow-up. (If you do not have a PCP you can call [phone]. ?to schedule an appointment with an [facility] Primary Care Provider) IF YOU DEVELOP ANY NEW OR WORSENING SYMPTOMS, RETURN TO THE ER! Please read the attached instructions, they highlight more specific treatments and interventions for you at home. Thank you for letting me participate in your care, Lupe Frazier PA-C Prescriptions: New meloxicam 7.5 mg tablet 7.5 mg PO DAILY 14 Days Qty: 14 0RF No Action omeprazole 20 mg capsule,delayed release(DR/EC) 20 mg PO DAILY PRN (Reason: reflux) Qty: 30 3RF Rx Instructions: Take one capsule once daily while on Ibuprofen then take as needed for reflux meloxicam 15 mg tablet PO DAILY Fish Oil 1,000 mg PO QDAY Qty: 0 CA PANTOTHENATE/FOLIC ACID/VIT (MULTIVITAMIN) 1 tab PO QDAY Qty: 0 fluoxetine 10 mg capsule 10 mg PO DAILY Qty: 90 3RF gabapentin 300 mg capsule 300 mg PO BEDTIME Qty: 30 3RF celecoxib 200 mg capsule 200 mg PO BID Qty: 60 3RF terbinafine HCl 250 mg tablet PO Referrals: Tricia Weinstein PA-C [Primary Care Provider, Medical] Stand Alone Forms: Patient Portal/API ED Sign-out <Bobbi Diallo, DO - Last Filed: 04/17/25 23:26> Cosign ED Attending Coseronature Attestation: I was available for consultation.
[2025-04-17] MEDS: IBUPROFEN 400 MG TABLET PO (18:16)
[2025-04-17 18:27] VITALS: BP 115/70; PULSE 63; RESP 18; O2SAT 96
== END 2025-04-17 18:37 | disposition home or self-care (01) ==
PROVIDERS: Emergency Provider Physician Assistant; Family Provider Physician Assistant; PCP Physician Assistant
DX: S00.03XA Contusion of scalp, initial encounter (principal); M25.552 Pain in left hip; W10.8XXA Fall (on) (from) other stairs and steps, initial encounter; Z96.643 Presence of artificial hip joint, bilateral
CPT/HCPCS: 70450; 73502; 99283; 99284

== ENCOUNTER → 2025-04-18 10:49 | Outpatient (CLI) | payer OTHER, SELFPAY ==
--- NOTE | 2025-04-18 10:52 | DI.RAD.S_ITS ---
PROCEDURE: XR FINGER RT MIN 2V INDICATIONS: Right finger injury TECHNIQUE: AP hand, 2 views of the right 4th finger(s) acquired. COMPARISON: None. FINDINGS: Bones: No fractures or dislocations. No suspicious bony lesions. Soft tissues: No suspicious soft tissue calcifications. IMPRESSION: No acute bony abnormality. Dictated by: Kathi Lackey M.D. on 04/18/2025 at 21:07 Approved by: Kathi Lackey M.D. on 04/18/2025 at 21:08
== END ==
PROVIDERS: Family Provider Physician Assistant; PCP Physician Assistant; Referring Provider Nurse Practitioner Family; Visit Provider Nurse Practitioner Family
DX: S69.91XA Unspecified injury of right wrist, hand and finger(s), initial encounter (principal); X58.XXXA Exposure to other specified factors, initial encounter
CPT/HCPCS: 73140

== ENCOUNTER 2025-06-08 12:13 | Emergency (ER) | payer OTHER, SELFPAY ==
[2025-06-08 12:24] VITALS: BP 112/56; PULSE 66; RESP 16; TEMP 36.6; O2SAT 96; BMI 28.3
--- NOTE | 2025-06-08 12:34 | DI.RAD.S_ITS ---
PROCEDURE: XR HAND RT MIN 3V INDICATIONS: ring finger pain; little finger held in abduction TECHNIQUE: 3 views of the hand(s) acquired. COMPARISON: None. FINDINGS: Bones: No fractures or dislocations. Carpal bones are normally aligned. No suspicious bony lesions. Soft tissues: No suspicious soft tissue calcifications. IMPRESSION: No acute bony abnormality. Dictated by: Timi Johnson M.D. on 06/08/2025 at 13:25 Approved by: Timi Johnson M.D. on 06/08/2025 at 13:26
[2025-06-08 14:04] VITALS: BP 109/60; PULSE 94; RESP 18; O2SAT 96
--- NOTE | 2025-06-08 14:04 | PC.NURSE ---
Patient evaluated, treated, and discharged by provider prior to nursing assessment.
--- NOTE | 2025-06-08 18:40 | ED.UPPEXIN ---
HPI - Extremity Injury (Upper) <Gareth Tesfaye PA-C - Last Filed: 06/08/25 18:47> General Chief Complaint: Extremity Injury, Upper Stated Complaint: fell in Mar, having pain in right ring finger. Time Seen by Provider: 06/08/25 12:33 History of Present Illness HPI narrative: 64-year-old female presents to the ED for continued pain in the right ring finger. Patient was seen in the injury for a fall with multiple other injuries, she failed to noticed this distracting injury to her right ring finger. She was later on seen by her doctor, x-ray was obtained which was negative for fracture/dislocation. Patient is complaining of continued pain on the lateral aspect of the PIP of the right ring finger, where she has an erythematous spot. Patient has been seen by ortho, referred to physical therapy. Patient had 1 session of physical therapy last week, following which her symptoms worsen. Patient's ortho had ordered an MRI, which was rejected by her insurance. Patient's ortho plans to appeal to insurance for an MRI. Patient today denies numbness, tingling, weakness. There is full range of motion. Related Data Home Medications ?Medication ?Instructions ?Recorded ?Confirmed CA PANTOTHENATE/FOLIC ACID/VIT 1 tab PO QDAY ##0 12/24/12 05/12/25 (MULTIVITAMIN) Fish Oil 1,000 mg PO QDAY ##0 12/24/12 05/12/25 terbinafine HCl 250 mg tablet mg PO 09/29/24 05/12/25 Previous Rx's ?Medication ?Instructions ?Recorded omeprazole 20 mg capsule,delayed 20 mg PO DAILY PRN reflux #30 caps 07/21/22 release fluoxetine 10 mg capsule 10 mg PO DAILY #90 caps 12/08/24 Allergies Allergy/AdvReac Type Severity Reaction Status Date / Time sertraline AdvReac Mild DIARRHEA Verified 06/08/25 12:28 Review of Systems <Gareth Tesfaye PA-C - Last Filed: 06/08/25 18:47> Constitutional Constitutional: Denies chills, Denies fatigue, Denies fever(s), Denies frequent falls, Denies lethargy and Denies weakness Eyes Eyes: Denies change in vision, Denies eye discharge, Denies irritation and Denies loss of vision ENT Ears, Nose, Mouth, and Throat: Denies change in voice, Denies dizziness, Denies neck pain, Denies sore throat and Denies throat swelling Cardiovascular Cardiovascular: Denies chest pain, Denies irregular heart rhythm, Denies lightheadedness, Denies palpitations, Denies dyspnea, Denies dyspnea on exertion and Denies orthopnea Respiratory Respiratory: Denies cough, Denies dyspnea, Denies dyspnea on exertion and Denies wheezing Gastrointestinal Gastrointestinal: Denies abdominal pain, Denies change in bowel habits, Denies diarrhea, Denies nausea and Denies vomiting Musculoskeletal Musculoskeletal: Denies neck pain and Denies numbness Comments: Right ring finger pain Integumentary/Breasts Skin/Breast: Denies pruritus, Denies erythema, Denies rash and Denies wounds Neurologic Neurologic: Denies behavioral changes, Denies confusion, Denies dizziness, Denies frequent falls, Denies loss of vision, Denies numbness and Denies weakness Psychiatric Psychiatric: Denies anxiety, Denies behavioral changes, Denies confusion, Denies depression, Denies homicidal ideation and Denies suicidal ideation Endocrine Endocrine: Denies fatigue, Denies flushing and Denies palpitations Hematologic/Lymphatic Hematologic/Lymphatic: Denies easy bruising Allergic/Immunologic Allergic/Immunologic: Denies urticaria, Denies throat swelling and Denies wheezing Patient History <Gareth Tesfyae PA-C - Last Filed: 06/08/25 18:47> Medical History COVID-19 virus infection Achilles tendinitis, right leg Restless leg Surgical History Hip joint replacement status Family History Child Age: 38 Bipolar 1 disorder Child Age: 30 Eczema Hx of seasonal allergies Mother Age: 84 High cholesterol Hiatal hernia Malignant neoplasm of female breast, unspecified laterality, unspecified site of breast Sister Age: 57 Seizures Social History marital status: Smoking Status: Never smoker alcohol intake: never substance use type: does not use Smoking Status: Never smoker alcohol intake frequency: other Exam <Gareth Tesfaye PA-C - Last Filed: 06/08/25 18:47> Narrative Exam Narrative: Const General:?cooperative, healthy appearing and comfortable [facility] Head:?normal to inspection Ears:?hearing grossly normal bilaterally Nose:?external nose normal Face and sinus:?normal facial exam and sinuses nontender Mouth:?oral mucosae normal Throat:?posterior oropharynx normal Eyes General:?appearance normal, both eyes and all related structures Neck Neck:?normal visual inspection and no lymphadenopathy noted Resp Effort & Inspection:?normal respiratory effort Auscultation:?clear to auscultation bilaterally Cardio Rate:?regular rate Rhythm:?regular rhythm Musculoskeletal There is a small erythematous spot in the lateral aspect of the PIP junction of the right ring finger. There is full range of motion. Strength and sensation is intact. Neurovascularly intact. Neuro General:?patient alert, patient awake and patient oriented x3 Initial Vital Signs Initial Vital Signs: Vital Signs Temperature 98 F 06/08/25 12:24 Pulse Rate 66 06/08/25 12:24 Respiratory Rate 16 06/08/25 12:24 Blood Pressure 112/56 L 06/08/25 12:24 Pulse Oximetry 96 06/08/25 12:24 Oxygen Delivery Method Room Air 06/08/25 12:24 <Urban Forde MD - Last Filed: 06/09/25 08:11> Initial Vital Signs Initial Vital Signs: Vital Signs Temperature 98 F 06/08/25 12:24 Pulse Rate 66 06/08/25 12:24 Respiratory Rate 16 06/08/25 12:24 Blood Pressure 112/56 L 06/08/25 12:24 Pulse Oximetry 96 06/08/25 12:24 Oxygen Delivery Method Room Air 06/08/25 12:24 Course <Gareth Tesfaye PA-C - Last Filed: 06/08/25 18:47> Orders Ordered: ED Orders 06/08/25 12:34 XR hand RT min 3V Stat Vital Signs Vital signs: Vital Signs - 8 hr 06/08/25 12:24 06/08/25 14:04 Temperature 98 F Pulse Rate 66 94 H Respiratory Rate 16 18 Blood Pressure 112/56 L 109/60 Pulse Oximetry 96 96 Oxygen Delivery Method Room Air Room Air <Urban Forde MD - Last Filed: 06/09/25 08:11> Orders Ordered: ED Orders 06/08/25 12:34 XR hand RT min 3V Stat Vital Signs Vital signs: Vital Signs - 8 hr 06/08/25 12:24 06/08/25 14:04 Temperature 98 F Pulse Rate 66 94 H Respiratory Rate 16 18 Blood Pressure 112/56 L 109/60 Pulse Oximetry 96 96 Oxygen Delivery Method Room Air Room Air MDM - Extremity Injury (Upper) <Gareth Tesfaye PA-C - Last Filed: 06/08/25 18:47> MDM Narrative Medical decision making narrative: 64-year-old female presents to the ED for continued pain in the right ring finger. X-ray was obtained which was negative for fracture/dislocation. Discussed findings with patient. Recommend follow-up with ortho for further evaluation. Recommend follow-up with PT as well. ED return precautions discussed with patient. Patient verbalized understanding. Medical records reviewed: Yes Discharge Plan Departure Patient Disposition: Home Clinical Impression: Finger pain Qualifiers: Laterality: right Qualified Code(s): M79.644 - Pain in right finger(s) Instructions: DI for Finger Sprain Activity Restrictions/Additional Instructions: You were evaluated in the emergency department today for finger pain. We did a repeat x-ray today which was normal. Your symptoms are likely due to a finger sprain from your prior injury. It is recommended that you follow-up with your ortho specialist as soon as possible for further evaluation. Please let your physical therapist know that you were experiencing some worsening symptoms, so your therapy can be adjusted appropriately. Return to the ED if you have worsening symptoms, numbness, tingling, weakness. Prescriptions: No Action omeprazole 20 mg capsule,delayed release(DR/EC) 20 mg PO DAILY PRN (Reason: reflux) Qty: 30 3RF Rx Instructions: Take one capsule once daily while on Ibuprofen then take as needed for reflux Fish Oil 1,000 mg PO QDAY Qty: 0 CA PANTOTHENATE/FOLIC ACID/VIT (MULTIVITAMIN) 1 tab PO QDAY Qty: 0 fluoxetine 10 mg capsule 10 mg PO DAILY Qty: 90 3RF terbinafine HCl 250 mg tablet PO Referrals: Keny Ibarra MD [Primary Care Provider, Family Practice] Stand Alone Forms: Patient Portal/API ED Sign-out <Urban Forde MD - Last Filed: 06/09/25 08:11> Cosign ED Attending Cosignature Attestation: I was immediately available in the department for consultation. ?This documentation has been reviewed and I agree with assessment and plan. Supervised by Urban Forde MD
== END 2025-06-08 14:05 | disposition home or self-care (01) ==
PROVIDERS: Emergency Provider Student in an Organized Health Care Education/Training Program; Family Provider Physician Assistant; PCP Family Medicine
DX: M79.644 Pain in right finger(s) (principal)
CPT/HCPCS: 73130; 99281; 99283

== ENCOUNTER → 2025-06-10 08:11 | Outpatient (CLI) | payer OTHER, SELFPAY ==
--- NOTE | 2025-06-10 08:13 | DI.MRI.S_ITS ---
PROCEDURE: MR HAND RT WO CON INDICATIONS: Right ring finger pain TECHNIQUE: Noncontrast coronal T1 spin echo and T2 fast spin echo with fat saturation, axial proton density fast spin echo and T2 fast spin echo with fat saturation, sagittal T1 spin echo and STIR through the hand and fingers. COMPARISON: [facility], CR, XR FINGER RT MIN 2V, 04/18/2025, 10:50. FINDINGS: Image quality: Excellent. Bones: The bones are normally aligned, without marrow contusions or fractures. Intraosseous ganglion cyst within the lunate. No suspicious intraosseous lesion. Interphalangeal joint(s): Thickening and increased signal of the radial collateral ligament of the ring finger proximal interphalangeal joint. Ring finger proximal interphalangeal joint small joint effusion. Otherwise the accessory and proper collateral ligaments appear intact. The volar plate demonstrates normal morphology. The extensor central slips appear intact on sagittal images. Metacarpophalangeal joint(s): The accessory and proper collateral ligaments appear intact, as well as the volar plate and adjacent deep transverse metacarpal ligaments. The sagittal bands of the extensor weeks appear normal. Extensor apparatus: The central slips insert normally on the middle phalangeal base. The conjoint and terminal tendons insert normally on the distal phalangeal bases. More proximal portions of the extensor tendons also appear normal. Flexor apparatus: The flexor digitorum superficialis and profundus tendons both appear intact. All annular and cruciform pulleys appear intact, without adjacent soft tissue edema. Soft tissues: Visualized muscles demonstrate normal bulk and internal signal. No intramuscular masses identified. No ganglion cysts. Soft tissue edema along the radial aspect of the ring finger PIP joint. IMPRESSION: High grade 1 sprain of the radial collateral ligament of the ring finger proximal interphalangeal joint. Dictated by: Julian Luciano M.D. on 06/10/2025 at 9:37 Approved by: Julian Luciano M.D. on 06/10/2025 at 9:41
== END ==
LOC: MRI 08:12
PROVIDERS: PCP Family Medicine; Referring Provider Physician Assistant Surgical; Visit Provider Physician Assistant Surgical
DX: S63.634A Sprain of interphalangeal joint of right ring finger, initial encounter (principal); M67.441 Ganglion, right hand; X58.XXXA Exposure to other specified factors, initial encounter
CPT/HCPCS: 73218